=== PATIENT | female | born 1935 | race Caucasian/White ===

== ENCOUNTER 2016-09-04 19:12 | Emergency (ER) | payer BC ==
[~2016-09-04] VITALS: Ht 167.6 cm; Wt 53.0 kg
[~2016-09-04 19:12] MED LIST: ACET1TAB84 PO; AZAT50TA17 PO; CLON0.5T3 PO; MAGNESIUM PO; MISCCAP80 PO; PANT40TA PO; POTASSIUM PO; SERT25TA PO; VITA400C28 PO
[2016-09-04 19:29] VITALS: TEMP 36.5; Ht 167.6 cm; Wt 53.0 kg
[2016-09-04] MEDS ORDERED: SODIUM CHLORIDE 0.9% 500ML 500 ML IV STA (20:38)
[2016-09-04] MEDS ORDERED: ONDANSETRON INJ 2 MG/ML 2 ML VIAL IV STA (20:38)
[2016-09-04 21:09] LABS: BASO % 0.2 %; BASO ABS # 0.02 K/uL (0-0.2); COMPLETE YES; EOS % 0.7 %; IG% 0.3 %; LYMPH % 16.7 %; LYMPH ABS # 1.66 K/uL (1.2-3.4); MEAN CELL VOLUME 92.1 fL (80-100); MEAN CORPUSCULAR HGB CONC 34.7 g/dl (32-36); MEAN PLATELET VOLUME 9.6 fL (7.4-10.4); MONO % 9.9 %; NEUT % 72.2 %; PLATELET COUNT 254 K/uL (130-400); RED BLOOD COUNT 3.91 M/uL (4.2-5.4); WHITE BLOOD COUNT 9.96 K/uL (4.8-10.8)
[2016-09-04 21:29] LABS: BUN/CREATININE RATIO 15.3 (10-20); CREATININE 0.75 mg/dl (0.60-1.20); POTASSIUM 3.3 mmol/L (3.5-5.1)
--- NOTE | 2016-09-04 21:36 | DIAGNOSTIC IMAGING REPORT ---
CT OF THE ABDOMEN AND PELVIS WITHOUT CONTRAST, STONE PROTOCOL CLINICAL HISTORY: Nausea, vomiting and diarrhea. Evaluate for acute diverticulitis. COMPARISON STUDY: CT of the abdomen and pelvis August 23, [address] of the abdomen August 25, 2015. TECHNIQUE: Helical axial images of the abdomen and pelvis were obtained without IV or oral contrast according to renal stone protocol. FINDINGS: Evaluation of the abdomen and pelvis is suboptimal given the lack of IV and oral contrast. Moderate dilatation of the common bile duct is unchanged since prior exams and likely due to cholecystectomy. Unenhanced images of the spleen, adrenal glands, kidneys and pancreas are unremarkable. There is no evidence for a bowel obstruction. There are prominent loops of fluid-filled small bowel without discrete transition point. Images of the pelvis are degraded by streak artifact from hip arthroplasties. This extensive sigmoid diverticulosis. There is mild infiltration adjacent to the mid sigmoid colon. This could reflect mild diverticulitis. There is no free air or abscess. No suspicious skeletal lesions are identified. IMPRESSION: 1. Extensive sigmoid diverticulosis with mild infiltration adjacent to the mid to distal sigmoid colon. This suggests mild acute diverticulitis. No free air or abscess. 2. Prominent loops of fluid-filled small bowel without transition point. No convincing evidence for a bowel obstruction. 3. Stable biliary ductal dilatation which is likely due to prior cholecystectomy. Electronically signed by: Khai Pichardo M.D. 09/04/2016 9:34 PM Dictated Date/Time: 09/04/2016 9:25 PM
[2016-09-04 21:37] LABS: URINE APPEARANCE CLEAR (CLEAR); URINE BILIRUBIN NEG (NEG); URINE COLOR DK YELLOW; URINE NITRITE NEG (NEG); URINE SPECIFIC GRAVITY 1.022 (1.000-1.030); UROBILINOGEN POS (NEG)
[2016-09-04 21:38] LABS: MANUAL MICROSCOPIC REQUIRED? NO; REVIEW REQ? NO
[2016-09-04] MEDS ORDERED: METRONIDAZOLE 250 MG TAB PO STA (22:38)
[2016-09-04] MEDS ORDERED: CIPROFLOXACIN 500 MG TAB PO STA (22:38)
[2016-09-04] MEDS ORDERED: ONDANSETRON HOME PACK 4MG OD TAB PO ONE (22:45)
[2016-09-04] MEDS ORDERED: ONDA4TAB10 SL (22:51)
[2016-09-04] MEDS ORDERED: METR-163 PO (22:51)
[2016-09-04] MEDS ORDERED: CIPR-255 PO (22:51)
[2016-09-04 23:31] VITALS: BP 117/67; PULSE 67; O2SAT 95
--- NOTE | 2016-09-04 23:50 | EMERGENCY ROOM VISIT NOTE ---
History Report prepared by [place]: Ani Espinal Under the Supervision of: Dr. Rakan Telles M.D. First contact with patient: 19:59 Chief Complaint: NAUSEA Stated Complaint: NAUSEA,DIARRHEA,VOMITING,SOB Nursing Triage Summary: Pt complains of vomiting, diarrhea, abdominal pain and SOB. It started last Thursday. History of Present Illness The patient is an 81 year old female who presents to the Emergency Room with complaints of persistent nausea, vomiting and diarrhea for the past 6 days. She has been unable to keep any food or drink down. She denies any melena or hematochezia. Pepto-Bismol has provided no relief. She also complains of abdominal pain, rating her discomfort as an 8/10. The patient denies any recent sick contacts. The last time she was on antibiotics was in June 2016, when she was treated with a 28 day course of Doxycycline. She thinks she may have been running a fever. 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 A total of 10 systems reviewed and were otherwise negative. Past Medical & Surgical Medical Problems: (1) Acute urinary tract infection (2) Anxiety (3) Deep venous thrombosis (4) Depression (5) Diverticulosis (6) Dyslipidemia (7) GERD (gastroesophageal reflux disease) (8) h/o Schatski's ring (9) H/O urticaria (10) H/O: CVA (cerebrovascular accident) (11) Hiatal hernia (12) History of peptic ulcer disease (13) Paroxysmal atrial fibrillation Surgical Problems: (1) H/O blepharoplasty (2) H/o cervical laminectomy (3) H/O elbow replacement (4) H/O esophagogastroduodenoscopy (5) H/O esophagogastroduodenoscopy (6) H/o excision radial head (7) H/O hernia repair (8) H/o paravaginal defect repair (9) H/o sacral nerve stimulator implant (10) H/o vesicourethropexy (11) H/O: hysterectomy (12) Hx of cholecystectomy (13) S/P appendectomy (14) S/P cataract surgery (15) S/P hip replacement Family History Omitted secondary to age Social History Smoking Status: Former Smoker Alcohol Use: none Drug Use: none Marital Status: Housing Status: lives with family Occupation Status: employed Current/Historical Medications Scheduled Azathioprine (Imuran), 50 MG PO HS Ciprofloxacin Hcl (Cipro), 500 MG PO BID Metronidazole (Flagyl), 500 MG PO TID Ondasetron Odt (Zofran Odt), 4 MG SL Q6H Pantoprazole (Protonix), 40 MG PO QAM Probiotic Product (Probiotic), 1 CAP PO QAM Sertraline (Zoloft), 1 TAB PO DAILY Vitamin E (Alph-E), 1 CAP PO QAM [Magnesium], 300 MG PO BID [Potassium], 99 MG PO BID Scheduled PRN Acetaminophen (Tylenol Arthritis Ext Rel), 2 TAB PO Q8H PRN for Pain Clonazepam (Klonopin), 0.5 MG PO HS PRN for Sleep Allergies Coded Allergies: Iodinated Contrast Media (Verified Allergy, Intermediate, CONTRAST MEDIA- RASH,HIVES, 09/04/16) Oxycodone (Verified Allergy, Intermediate, PERCOCET-SWELLING OF ARMS, SHOULDERS, 09/04/16) SWELLING OF ARMS/SHOULDERS Corticosteroids (Verified Allergy, Unknown, STERIOD INJECTIONS - FLUSHING AND BLOTCHING REDNESS, 09/04/16) Mepivacaine (Verified Allergy, Unknown, 09/04/16) Morphine (Verified Allergy, Unknown, RASH, 09/04/16) Tetracyclines (Verified Allergy, Unknown, 09/04/16) Codeine (Verified Adverse Reaction, Mild, GI UPSET, 09/04/16) Fenoprofen (Verified Adverse Reaction, Unknown, NALFON-HEPATITIS, CAN TAKE MOTRIN, 09/04/16) Physical Exam Vital Signs Date Time Temp Pulse Resp B/P Pulse Ox O2 Delivery O2 Flow Rate FiO2 09/04/16 23:31 67 16 117/67 95 Room Air 09/04/16 22:35 64 18 117/66 95 Room Air 09/04/16 21:08 66 18 127/84 97 Room Air 09/04/16 19:29 36.5 70 20 119/66 97 Room Air Physical Exam Constitutional: Vital signs reviewed. Eyes: Pupils are equal round reactive to light. Conjunctiva are noninjected. ENT: Pharynx is clear without erythema or exudate. Mucous membranes are moist. Neck supple without meningeal signs. Respiratory: Clear to auscultation bilaterally. Breath sounds are equal bilaterally. Cardiovascular: Regular rate and rhythm. No rubs or gallops. GI: Soft, nondistended. LLQ tenderness, no guarding. Bowel sounds are present. Musculoskeletal: No peripheral edema. Integumentary: No cyanosis. Neurological: The patient is awake and alert. No focal deficits. Psychiatric: Normal affect. Medical Decision & Procedures ER Provider Diagnostic Interpretation: This CT scan was reviewed and interpreted by the radiologist and reviewed by myself. CT OF THE ABDOMEN AND PELVIS WITHOUT CONTRAST, STONE PROTOCOL CLINICAL HISTORY: Nausea, vomiting and diarrhea. Evaluate for acute diverticulitis. COMPARISON STUDY: CT of the abdomen and pelvis August 23, [address] of the abdomen August 25, 2015. TECHNIQUE: Helical axial images of the abdomen and pelvis were obtained without IV or oral contrast according to renal stone protocol. FINDINGS: Evaluation of the abdomen and pelvis is suboptimal given the lack of IV and oral contrast. Moderate dilatation of the common bile duct is unchanged since prior exams and likely due to cholecystectomy. Unenhanced images of the spleen, adrenal glands, kidneys and pancreas are unremarkable. There is no evidence for a bowel obstruction. There are prominent loops of fluid-filled small bowel without discrete transition point. Images of the pelvis are degraded by streak artifact from hip arthroplasties. This extensive sigmoid diverticulosis. There is mild infiltration adjacent to the mid sigmoid colon. This could reflect mild diverticulitis. There is no free air or abscess. No suspicious skeletal lesions are identified. IMPRESSION: 1. Extensive sigmoid diverticulosis with mild infiltration adjacent to the mid to distal sigmoid colon. This suggests mild acute diverticulitis. No free air or abscess. 2. Prominent loops of fluid-filled small bowel without transition point. No convincing evidence for a bowel obstruction. 3. Stable biliary ductal dilatation which is likely due to prior cholecystectomy. Electronically signed by: Khai Pichardo M.D. 09/04/2016 9:34 PM Laboratory Results 09/04/16 20:55 Red Blood Count 3.91, Mean Corpuscular Volume 92.1, Mean Corpuscular Hemoglobin 32.0, Mean Corpuscular Hemoglobin Concent 34.7, Mean Platelet Volume 9.6, Neutrophils (%) (Auto) 72.2, Lymphocytes (%) (Auto) 16.7, Monocytes (%) (Auto) 9.9, Eosinophils (%) (Auto) 0.7, Basophils (%) (Auto) 0.2, Neutrophils # (Auto) 7.19, Lymphocytes # (Auto) 1.66, Monocytes # (Auto) 0.99, Eosinophils # (Auto) 0.07, Basophils # (Auto) 0.02 09/04/16 20:55 Test 09/04/16 20:55 09/04/16 21:10 White Blood Count 9.96 K/uL (4.8-10.8) Red Blood Count 3.91 M/uL (4.2-5.4) Hemoglobin 12.5 g/dL (12.0-16.0) Hematocrit 36.0 % (37-47) Mean Corpuscular Volume 92.1 fL (80-100) Mean Corpuscular Hemoglobin 32.0 pg (25-34) Mean Corpuscular Hemoglobin Concent 34.7 g/dl (32-36) Platelet Count 254 K/uL (130-400) Mean Platelet Volume 9.6 fL (7.4-10.4) Neutrophils (%) (Auto) 72.2 % Lymphocytes (%) (Auto) 16.7 % Monocytes (%) (Auto) 9.9 % Eosinophils (%) (Auto) 0.7 % Basophils (%) (Auto) 0.2 % Neutrophils # (Auto) 7.19 K/uL (1.4-6.5) Lymphocytes # (Auto) 1.66 K/uL (1.2-3.4) Monocytes # (Auto) 0.99 K/uL (0.11-0.59) Eosinophils # (Auto) 0.07 K/uL (0-0.5) Basophils # (Auto) 0.02 K/uL (0-0.2) RDW Standard Deviation 44.3 fL (36.4-46.3) RDW Coefficient of Variation 13.2 % (11.5-14.5) Immature Granulocyte % (Auto) 0.3 % Immature Granulocyte # (Auto) 0.03 K/uL (0.00-0.02) Anion Gap 11.0 mmol/L (3-11) Est Creatinine Clear Calc Drug Dose 49.2 ml/min Estimated GFR () 86.6 Estimated GFR (Non- 74.8 BUN/Creatinine Ratio 15.3 (10-20) Calcium Level 9.0 mg/dl (8.5-10.1) Total Bilirubin 0.3 mg/dl (0.2-1) Direct Bilirubin 0.1 mg/dl (0-0.2) Aspartate Amino Transf (AST/SGOT) 25 U/L (15-37) Alanine Aminotransferase (ALT/SGPT) 20 U/L (12-78) Alkaline Phosphatase 97 U/L (45-117) Total Protein 7.2 gm/dl (6.4-8.2) Albumin 3.4 gm/dl (3.4-5.0) Lipase 194 U/L (73-393) Urine Color DK YELLOW Urine Appearance CLEAR (CLEAR) Urine pH 7.0 (4.5-7.5) Urine Specific [place] 1.022 (1.000-1.030) Urine Protein NEG (NEG) Urine Glucose (UA) NEG (NEG) Urine Ketones TRACE (NEG) Urine Occult Blood 1+ (NEG) Urine Nitrite NEG (NEG) Urine Bilirubin NEG (NEG) Urine Urobilinogen POS (NEG) Urine Leukocyte Esterase SMALL (NEG) Urine WBC (Auto) 5-10 /hpf (0-5) Urine RBC (Auto) >30 /hpf (0-4) Urine Hyaline Casts (Auto) 1-5 /lpf (0-5) Urine Epithelial Cells (Auto) 10-20 /lpf (0-5) Urine Bacteria (Auto) NEG (NEG) Laboratory results as reviewed by me. Medications Administered Medications (Trade) Dose Ordered Sig/[place] Route Start Time Stop Time Status Last Admin Dose Admin Ondansetron HCl 4 mg 4 mg NOW STAT IV 09/04/16 20:38 09/04/16 20:39 DC 09/04/16 21:06 4 MG Sodium Chloride (Nss 500ml) 500 ml @ 999 mls/hr Q31M STAT IV 09/04/16 20:38 09/04/16 21:08 DC 09/04/16 21:07 999 MLS/HR Ciprofloxacin (Cipro Tab) 500 mg NOW STAT PO 09/04/16 22:38 09/04/16 22:39 DC 09/04/16 23:36 500 MG Metronidazole (Flagyl Tab) 500 mg NOW STAT PO 09/04/16 22:38 09/04/16 22:39 DC 09/04/16 23:36 500 MG Ondansetron HCl (ZOFRAN ODT 4MG Home Pack) 1 homepack UD ONCE PO 09/04/16 22:45 09/04/16 22:46 DC 09/04/16 23:36 1 HOMEPACK ED Course 2032: The patient was evaluated in room B7. A complete history and physical exam was performed. 2037: NSS 500 ml @ 999 mls/hr IV, Zofran 4 mg IV. 2219: I reevaluated the patient. I discussed her test results. She is feeling better and does not want to stay in the hospital. I am waiting on her C-Diff results. 2237: Flagyl 500 mg PO, Cipro 500 mg PO. 2244: I reevaluated the patient. She is drinking water. I discussed her test results discharge instructions and she verbalized complete understanding and agreement. 5: Zofran 1 home pack PO. Medical Decision This is an 81-year-old female presents with vomiting, diarrhea and abdominal pain. Differential diagnosis includes diverticulitis, perforation, abscess, gastroenteritis, dehydration. I did perform a limited focused review of portions of the patient's old chart on the electronic medical record. The patient had an EGD in June 2016, which showed Schatzki's ring, but an otherwise normal stomach and duodenum. I did evaluate the patient as noted above. IV access was established. I did treat patient with Zofran and normal saline IV. I did order and personally review the patient's urinalysis as this appears to be contaminated. She denies urinary symptoms. As described above. I did order and review the patient's blood work as noted in the electronic medical record. I did order a CT of the abdomen and pelvis. I did review the images myself as well as the radiology report as described above. She does appear to have diverticulitis and enteritis. I did order a C. difficile test which was negative. I did reevaluate the patient. She is feeling better. She does not wish to be hospitalized. She is able to drink fluids. I did discuss the test results with the patient and her family. She was treated with Cipro and Flagyl and discharged home with a prescription for Cipro, Flagyl and Zofran. She was advised follow closely with her doctor and given return instructions as outlined below. Impression Primary Impression: Acute diverticulitis Additional Impressions: Dehydration Enteritis Scribe Attestation The scribe's documentation has been prepared under my direct and personally reviewed by me in its entirety. I confirm that the note above accurately reflects all work, treatment, procedures, and medical decision making performed by me. Departure Information Dispostion Home / Self-Care Prescriptions Ondasetron Odt (ZOFRAN ODT) 4 Mg Tab 4 MG SL Q6H for Nausea, #10 TAB Prov: Rakan Telles M.D. 09/04/16 Metronidazole (Flagyl) 500 Mg Tab 500 MG PO TID for 10 Days, #30 TAB Prov: Rakan Telles M.D. 09/04/16 Ciprofloxacin Hcl (CIPRO) 500 Mg Tab 500 MG PO BID, #19 TAB Prov: Rakan Telles M.D. 09/04/16 Referrals Richa Mejia M.D. (PCP) Patient Instructions Diverticulitis Dc, My [facility] Additional Instructions You have been examined and treated today on an emergency basis only. This is not a substitute for, or an effort to provide, complete comprehensive medical care. It is impossible to recognize and treat all injuries or illnesses in a single emergency department visit. It is therefore important that you follow up closely with your physician. Call as soon as possible for an appointment. Return for worsening symptoms or if you develop fever, rectal bleeding or any other concerning symptoms. Problem Qualifiers
[2016-09-26] MEDS ORDERED: SACC250C3 PO (11:05)
[2016-09-26] MEDS ORDERED: AMOX875T PO (11:05)
[2016-10-31] MEDS ORDERED: MELATAB2 PO (14:59)
[2016-10-31] MEDS ORDERED: PROB1CAP27 PO (14:59)
[2016-12-26] MEDS ORDERED: SERT50TA PO (10:42)
[2017-01-21] MEDS ORDERED: TRAM-10 PO (08:55)
[2017-05-05] MEDS ORDERED: MDRDP21 PO (15:35)
[2017-05-05] MEDS ORDERED: HYDR-4383 PO (15:35)
== END 2016-09-04 23:40 | disposition home or self-care (01) ==
LOC: C.EDB 19:14
DX: K57.92 Diverticulitis of intestine, part unspecified, without perforation or abscess without bleeding (principal); E86.0 Dehydration; K52.9 Noninfective gastroenteritis and colitis, unspecified; R11.2 Nausea with vomiting, unspecified; R50.9 Fever, unspecified; Z87.891 Personal history of nicotine dependence

== ENCOUNTER 2016-09-21 10:52 | Inpatient (IN) | payer BC, OTHER ==
[~2016-09-21] VITALS: Ht 167.6 cm; Wt 53.0 kg
[~2016-09-21 10:52] MED LIST changes: +CIPR-255 PO; +ONDA4TAB10 SL
[2016-09-21] MEDS ORDERED: SODIUM CHLORIDE 0.9% 1000ML 1,000 ML IV STA (11:54)
[2016-09-21] MEDS ORDERED: SODIUM CHLORIDE 0.9% 1000ML 500 ML IV STA (11:54)
[2016-09-21] MEDS ORDERED: ONDANSETRON INJ 2 MG/ML 2 ML VIAL IV STA (11:54)
[2016-09-21] MEDS ORDERED: SERT-234 PO (12:02)
[2016-09-21 12:35] LABS: BASO % 0.2 %; BASO ABS # 0.02 K/uL (0-0.2); COMPLETE YES; EOS % 2.2 %; HEMATOCRIT 37.8 % (37-47); IG% 0.2 %; LYMPH ABS # 1.15 K/uL (1.2-3.4); MEAN CELL VOLUME 96.2 fL (80-100); MEAN CORPUSCULAR HEMOGLOBIN 32.6 pg (25-34); MEAN CORPUSCULAR HGB CONC 33.9 g/dl (32-36); MEAN PLATELET VOLUME 9.8 fL (7.4-10.4); MONO % 12.6 %; NEUT % 70.8 %; PLATELET COUNT 287 K/uL (130-400); RED BLOOD COUNT 3.93 M/uL (4.2-5.4); WHITE BLOOD COUNT 8.19 K/uL (4.8-10.8)
[2016-09-21 12:56] LABS: BUN/CREATININE RATIO 12.8 (10-20); CALCIUM 8.7 mg/dl (8.5-10.1); CREATININE 0.74 mg/dl (0.60-1.20); POTASSIUM 3.3 mmol/L (3.5-5.1)
[2016-09-21 12:59] LABS: ALB/GLOB RATIO 0.8 (0.9-2)
--- NOTE | 2016-09-21 14:24 | EMERGENCY ROOM VISIT NOTE ---
History Report prepared by [place]: Dejuan Romero Under the Supervision of: Dr. Trenton Zayas M.D. First contact with patient: 11:52 Chief Complaint: DIARRHEA Stated Complaint: DIARRHEA, PAIN IN [place] History of Present Illness The patient is an 81 year old female with a history of diverticulosis who presents to the Emergency Room with complaints of persistent diarrhea for the past two weeks. The stools are very loose and without blood. The patient was experiencing vomiting & diarrhea two weeks ago. She was seen in the ED and had a CT abdomen & pelvis. The patient was diagnosed with mild diverticulitis. The patient is no longer vomiting, but continues to experience diarrhea. She also complains of subjective fevers and intermittent lower abdominal pain. The patient was started on Cipro and Flagyl, which she finished. The patient was seen by urgent care yesterday. The patient tries to keep up with her fluids but still feels like her mouth is dry. She also feels like she is urinating infrequently. The patient has never been diagnosed with C. Diff. The patient is s/p cholecystectomy and appendectomy. She has never had a colectomy. The patient takes Imuran for hepatitis. Source of History: patient Onset: two weeks ago Position: other (GI) Quality: other (diarrhea) Timing: other (persistent) Associated Symptoms: + abdominal pain, + fevers, No hematochezia, No vomiting Review of Systems See HPI for pertinent positives & negatives. A total of 10 systems reviewed and were otherwise negative. Past Medical & Surgical Medical Problems: (1) Anxiety (2) Deep venous thrombosis (3) Depression (4) Diverticulosis (5) Dyslipidemia (6) GERD (gastroesophageal reflux disease) (7) h/o Schatski's ring (8) H/O urticaria (9) H/O: CVA (cerebrovascular accident) (10) Hiatal hernia (11) History of peptic ulcer disease (12) Paroxysmal atrial fibrillation Surgical Problems: (1) H/O blepharoplasty (2) H/o cervical laminectomy (3) H/O elbow replacement (4) H/O esophagogastroduodenoscopy (5) H/O esophagogastroduodenoscopy (6) H/o excision radial head (7) H/O hernia repair (8) H/o paravaginal defect repair (9) H/o sacral nerve stimulator implant (10) H/o vesicourethropexy (11) H/O: hysterectomy (12) Hx of cholecystectomy (13) S/P appendectomy (14) S/P cataract surgery (15) S/P hip replacement Family History Omitted secondary to age Social History Smoking Status: Former Smoker Alcohol Use: none Drug Use: none Marital Status: Housing Status: lives with family Occupation Status: employed Current/Historical Medications Scheduled Azathioprine (Imuran), 50 MG PO HS Magnesium Oxide (Mg Supplement (Magnesium), 400 MG PO DAILY Ondasetron Odt (Zofran Odt), 4 MG SL Q6H Pantoprazole (Protonix), 40 MG PO QAM Potassium (Potassium), 99 MG PO DAILY Sertraline (Zoloft), 50 MG PO DAILY Vitamin E (Alph-E), 1 CAP PO QAM Scheduled PRN Acetaminophen (Tylenol Arthritis Ext Rel), 2 TAB PO Q8H PRN for Pain Clonazepam (Klonopin), 0.5 MG PO HS PRN for Sleep Allergies Coded Allergies: Iodinated Contrast Media (Verified Allergy, Intermediate, CONTRAST MEDIA- RASH,HIVES, 09/21/16) Oxycodone (Verified Allergy, Intermediate, PERCOCET-SWELLING OF ARMS, SHOULDERS, 09/21/16) SWELLING OF ARMS/SHOULDERS Corticosteroids (Verified Allergy, Unknown, STERIOD INJECTIONS - FLUSHING AND BLOTCHING REDNESS, 09/21/16) Mepivacaine (Verified Allergy, Unknown, 09/21/16) Morphine (Verified Allergy, Unknown, RASH, 09/21/16) Tetracyclines (Verified Allergy, Unknown, 09/21/16) Codeine (Verified Adverse Reaction, Mild, GI UPSET, 09/21/16) Fenoprofen (Verified Adverse Reaction, Unknown, NALFON-HEPATITIS, CAN TAKE MOTRIN, 09/21/16) Physical Exam Vital Signs Date Time Temp Pulse Resp B/P Pulse Ox O2 Delivery O2 Flow Rate FiO2 09/21/16 16:40 97 Room Air 09/21/16 16:20 66 20 127/75 97 Room Air 09/21/16 15:38 64 18 140/65 94 Room Air 09/21/16 13:46 66 16 124/67 97 Room Air 09/21/16 11:05 37.0 85 18 107/67 96 Room Air Physical Exam GENERAL: Patient is in no acute distress. HEENT: No acute trauma, normocephalic atraumatic, mucous membranes dry, no nasal congestion, no scleral icterus. NECK: No stridor, no adenopathy, no meningismus, trachea is midline. LUNGS: Clear to auscultation bilaterally, no wheeze, no rhonchi, breath sounds equal. HEART: 2/6 systolic murmur, with a regular rate and rhythm. ABDOMEN: Soft, tender to the left mid abdomen and right lower quadrant, bowel sounds positive, no hernias, no peritonitis. EXTREMITIES: No cyanosis or edema, full range of motion of all the joints without pain or difficulty, no signs for acute trauma. NEUROLOGIC: Oriented x 3, no acute motor or sensory deficits, no focal weakness. SKIN: No rash, no jaundice, no diaphoresis. Medical Decision & Procedures ER Provider Diagnostic Interpretation: CT results as stated below per my review and radiologist interpretation: ABDOMEN AND PELVIS CT WITH ORAL CONTRAST CT DOSE: 527.95 mGy.cm HISTORY: Pain. Pelvic pain. ABD PAIN, POSSIBLE DIVERTICULITIS TECHNIQUE: Multiaxial CT images of the abdomen and pelvis were performed following the use of oral contrast. COMPARISON STUDY: 09/04/2016 FINDINGS: Lung bases are clear. Small hiatal hernia. Liver spleen and pancreas are unremarkable in overall general morphology. Kidneys are negative for hydronephrosis. There are no renal calcifications. There is a diverticulum of the third portion of the duodenal sweep. This is unchanged. Abdominal bowel pattern is considered nonobstructive. Moderate osteophytic change of the abdominal aorta. Moderate ectasia. Findings of mild wall edema of the sigmoid and composed of the descending colon despite metallic artifact from the patient's bilateral hip replacements. No abscess or collection. IMPRESSION: Findings suggesting mild sigmoid and to lesser extent descending colonic diverticulosis/colitis. Moderate generalized wall thickening. No evidence for abscess collection or obstruction Electronically signed by: Sridhar Kirk M.D. 09/21/2016 2:59 PM Dictated Date/Time: 09/21/2016 2:54 PM Laboratory Results 09/21/16 12:27 Red Blood Count 3.93, Mean Corpuscular Volume 96.2, Mean Corpuscular Hemoglobin 32.6, Mean Corpuscular Hemoglobin Concent 33.9, Mean Platelet Volume 9.8, Neutrophils (%) (Auto) 70.8, Lymphocytes (%) (Auto) 14.0, Monocytes (%) (Auto) 12.6, Eosinophils (%) (Auto) 2.2, Basophils (%) (Auto) 0.2, Neutrophils # (Auto ) 5.79, Lymphocytes # (Auto) 1.15, Monocytes # (Auto) 1.03, Eosinophils # (Auto ) 0.18, Basophils # (Auto) 0.02 09/21/16 12:27 Test 09/21/16 12:27 09/21/16 12:37 White Blood Count 8.19 K/uL (4.8-10.8) Red Blood Count 3.93 M/uL (4.2-5.4) Hemoglobin 12.8 g/dL (12.0-16.0) Hematocrit 37.8 % (37-47) Mean Corpuscular Volume 96.2 fL (80-100) Mean Corpuscular Hemoglobin 32.6 pg (25-34) Mean Corpuscular Hemoglobin Concent 33.9 g/dl (32-36) Platelet Count 287 K/uL (130-400) Mean Platelet Volume 9.8 fL (7.4-10.4) Neutrophils (%) (Auto) 70.8 % Lymphocytes (%) (Auto) 14.0 % Monocytes (%) (Auto) 12.6 % Eosinophils (%) (Auto) 2.2 % Basophils (%) (Auto) 0.2 % Neutrophils # (Auto) 5.79 K/uL (1.4-6.5) Lymphocytes # (Auto) 1.15 K/uL (1.2-3.4) Monocytes # (Auto) 1.03 K/uL (0.11-0.59) Eosinophils # (Auto) 0.18 K/uL (0-0.5) Basophils # (Auto) 0.02 K/uL (0-0.2) RDW Standard Deviation 48.3 fL (36.4-46.3) RDW Coefficient of Variation 13.7 % (11.5-14.5) Immature Granulocyte % (Auto) 0.2 % Immature Granulocyte # (Auto) 0.02 K/uL (0.00-0.02) Anion Gap 8.0 mmol/L (3-11) Est Creatinine Clear Calc Drug Dose 49.9 ml/min Estimated GFR () 88.1 Estimated GFR (Non- 76.0 BUN/Creatinine Ratio 12.8 (10-20) Calcium Level 8.7 mg/dl (8.5-10.1) Magnesium Level 2.3 mg/dl (1.8-2.4) Total Bilirubin 0.4 mg/dl (0.2-1) Aspartate Amino Transf (AST/SGOT) 16 U/L (15-37) Alanine Aminotransferase (ALT/SGPT) 11 U/L (12-78) Alkaline Phosphatase 90 U/L (45-117) Total Protein 7.4 gm/dl (6.4-8.2) Albumin 3.3 gm/dl (3.4-5.0) Globulin 4.1 gm/dl (2.5-4.0) Albumin/Globulin Ratio 0.8 (0.9-2) Prothrombin Time 11.4 SECONDS (9.0-12.0) Prothromb Time International Ratio 1.1 (0.9-1.1) Activated Partial Thromboplast Time 26.1 SECONDS (21.0-31.0) Partial Thromboplastin Ratio 1.0 Laboratory results reviewed by me. Medications Administered Medications (Trade) Dose Ordered Sig/Kelsea Route Start Time Stop Time Status Last Admin Dose Admin Sodium Chloride (Nss 1000ml) 500 ml @ 999 mls/hr Q31M STAT IV 09/21/16 11:54 09/21/16 12:24 DC 09/21/16 11:54 999 MLS/HR Ondansetron HCl 4 mg 4 mg NOW STAT IV 09/21/16 11:54 09/21/16 12:02 DC 09/21/16 12:28 4 MG Sodium Chloride 1,000 ml @ 200 mls/hr Q5H STAT IV 09/21/16 11:54 09/21/16 16:53 DC 09/21/16 11:54 200 MLS/HR Promethazine HCl 6.25 mg/Sodium Chloride 50.25 ml @ 204 mls/hr NOW STAT IV 09/21/16 14:53 09/21/16 15:07 DC 09/21/16 16:19 204 MLS/HR Ampicillin Sodium/ Sulbactam Sodium/ Sodium Chloride (Unasyn Inj/Nss 100ml) 108 ml @ 200 mls/hr ONE ONCE IV 09/21/16 15:30 2/5/17 16:02 DC 09/21/16 16:20 200 MLS/HR ED Course 1154: The patient was evaluated in room C10. A complete history and physical exam was performed. 1223: Checked on the patient. 1323: Updated the patient. Medicine will be paged. 1453: Promethazine HCl 6.25 mg / NSS 50.25 ml @ 204 mls/hr. 1530: Ampicillin Sodium / Sulbactam Sodium 3000 mg / NSS 108 ml @ 200 mls/hr. 1535: [facility] The patient will be evaluated. Medical Decision Differential diagnosis includes C. Diff. colitis, colitis, diverticulitis, dehydration, electrolyte imbalance, UTI, renal failure. There is no leukocytosis or concerning anemia. No significant electrolyte abnormality, kidney failure or hepatitis. Abdominal and pelvis CT shows diverticulitis, there was no evidence for abscess, no bowel perforation. The patient presents with diarrhea, weakness and abdominal cramping. She just finished a course of Cipro and Flagyl for diverticulitis and she appears to have failed outpatient treatment. I did have a stool culture sent, these results are pending. The C. difficile testing was negative. The patient was given IV saline, IV Zofran and IV Phenergan. She received IV Unasyn for antibiotic coverage. The patient requires admission/observation. She requires IV antibiotic therapy. I spoke to the patient and case management. The on-call hospitalist was consulted. Consults Time Called: 1529 Consulting Physician: Cheryl Starr PA-C, [facility] Returned Call: [phone]: Spoke with Cheryl Starr PA-C, [facility]. The patient will be evaluated. Impression Primary Impression: Diverticulitis Additional Impressions: Dehydration Failure of outpatient treatment Scribe Attestation The scribe's documentation has been prepared under my direction and personally reviewed by me in its entirety. I confirm that the note above accurately reflects all work, treatment, procedures, and medical decision making performed by me. Departure Information Dispostion Being Evaluated By Hospitalist Referrals Richa Mejia M.D. (PCP) Patient Instructions My [facility] Problem Qualifiers
[2016-09-21] MEDS ORDERED: PROMETHAZINE HCL INJ 6.25 MG in SODIUM CHLORIDE 0.9% 50ML 50 ML IV STA (14:53)
--- NOTE | 2016-09-21 15:01 | DIAGNOSTIC IMAGING REPORT ---
ABDOMEN AND PELVIS CT WITH ORAL CONTRAST CT DOSE: 527.95 mGy.cm HISTORY: Pain. Pelvic pain. ABD PAIN, POSSIBLE DIVERTICULITIS TECHNIQUE: Multiaxial CT images of the abdomen and pelvis were performed following the use of oral contrast. COMPARISON STUDY: 09/04/2016 FINDINGS: Lung bases are clear. Small hiatal hernia. Liver spleen and pancreas are unremarkable in overall general morphology. Kidneys are negative for hydronephrosis. There are no renal calcifications. There is a diverticulum of the third portion of the duodenal sweep. This is unchanged. Abdominal bowel pattern is considered nonobstructive. Moderate osteophytic change of the abdominal aorta. Moderate ectasia. Findings of mild wall edema of the sigmoid and composed of the descending colon despite metallic artifact from the patient's bilateral hip replacements. No abscess or collection. IMPRESSION: Findings suggesting mild sigmoid and to lesser extent descending colonic diverticulosis/colitis. Moderate generalized wall thickening. No evidence for abscess collection or obstruction Electronically signed by: Sridhar Kirk M.D. 09/21/2016 2:59 PM Dictated Date/Time: 09/21/2016 2:54 PM
[2016-09-21] MEDS ORDERED: AMPICILLIN/SULBACTAM SOD INJ 3,000 MG in SODIUM CHLORIDE 0.9% 100ML 100 ML IV ONE (15:30)
[2016-09-21] MEDS ORDERED: ONDANSETRON INJ 2 MG/ML 2 ML VIAL IV PRN (16:30)
[2016-09-21] MEDS ORDERED: SERT50TA PO (16:31)
[2016-09-21] MEDS ORDERED: MAGN1CAP2 PO (16:31)
[2016-09-21] MEDS ORDERED: POTA99TA PO (16:31)
[2016-09-21 16:40] VITALS: O2SAT 97; Ht 167.6 cm; Wt 53.0 kg
--- NOTE | 2016-09-21 16:47 | History and Physical ---
History & Physical Date & Time of Service: Sep 21, 2016 at 16:33 Chief Complaint: Diarrhea, Pain In Belly Primary Care Physician: Richa Mejia M.D. History of Present Illness Source: patient This is an 81 y/o female with PMHx of Autoimmune hepatitis, GERD, Dyslipidemia and other problems as outlined below who presents to the ED c/o diarrhea x 2 weeks. Pt reports that 2 weeks ago she developed diarrhea that is watery but non -bloody. She estimates that she has >10 episodes daily. Her sxs are assoc with mild abd crampy pain relieved with defecation, nausea, decreased urination and lightheadedness/dizziness. Pt was seen in the ED 2 weeks ago for her sxs. CT scan at that time revealed mild diverticulitis and patient was discharged home on 10-day course of Cipro/Flagyl. Pt completed the abx course on 09/14 however her sxs have not resolved. She continues to have copious amounts of diarrhea. Pt currently lives at home with daughter about 20 minutes away. When patient is feeling well she is very active (swims 3 days per week) and independent. Pt denies fever/chills, chest pain, SOB, vomiting, hematochezia, dysuria, LE edema or calf pain. In the ED, vitals are stable. Pt is afebrile with no leukocytosis. K+ 3.3. C.Diff is negative. Abd/pelvis CT + mild sigmoid and descending colon. No abscess. Pt will be admitted for further evaluation and treatment. Past Medical/Surgical History Medical Problems: (1) Anxiety Status: Chronic (2) Deep venous thrombosis Status: Chronic (3) Depression Status: Chronic (4) Diverticulosis Status: Chronic (5) Dyslipidemia Status: Chronic (6) GERD (gastroesophageal reflux disease) Status: Chronic (7) h/o Schatski's ring Status: Chronic (8) H/O urticaria Status: Chronic (9) H/O: CVA (cerebrovascular accident) Permanent Comment: 2011 per patient Status: Chronic (10) Hiatal hernia Status: Chronic (11) History of peptic ulcer disease Status: Chronic (12) Paroxysmal atrial fibrillation Status: Chronic Surgical Problems: (1) H/O blepharoplasty Status: Chronic (2) H/o cervical laminectomy Status: Chronic (3) H/O elbow replacement Status: Resolved (4) H/O esophagogastroduodenoscopy Status: Chronic (5) H/O esophagogastroduodenoscopy Permanent Comment: 08/06/15- Schatzki's ring, small hiatal hernia, gastritis Status: Chronic (6) H/o excision radial head Status: Chronic (7) H/O hernia repair Status: Chronic (8) H/o paravaginal defect repair Status: Chronic (9) H/o sacral nerve stimulator implant Status: Chronic (10) H/o vesicourethropexy Status: Chronic (11) H/O: hysterectomy Status: Resolved (12) Hx of cholecystectomy Status: Resolved (13) S/P appendectomy Status: Resolved (14) S/P cataract surgery Status: Chronic (15) S/P hip replacement Permanent Comment: bilateral Status: Chronic Family History Omitted secondary to age Social History Smoking Status: Former Smoker Alcohol Use: none Drug Use: none Marital Status: Housing status: lives alone Occupational Status: retired Immunizations History of Influenza Vaccine: No History of Tetanus Vaccine?: No History of Pneumococcal: No History of Hepatitis B Vaccine: No Multi-Drug Resistant Organisms History of MDRO: No Allergies Coded Allergies: Iodinated Contrast Media (Verified Allergy, Intermediate, CONTRAST MEDIA- RASH,HIVES, 09/21/16) Oxycodone (Verified Allergy, Intermediate, PERCOCET-SWELLING OF ARMS, SHOULDERS, 09/21/16) SWELLING OF ARMS/SHOULDERS Corticosteroids (Verified Allergy, Unknown, STERIOD INJECTIONS - FLUSHING AND BLOTCHING REDNESS, 09/21/16) Mepivacaine (Verified Allergy, Unknown, 09/21/16) Morphine (Verified Allergy, Unknown, RASH, 09/21/16) Tetracyclines (Verified Allergy, Unknown, 09/21/16) Codeine (Verified Adverse Reaction, Mild, GI UPSET, 09/21/16) Fenoprofen (Verified Adverse Reaction, Unknown, NALFON-HEPATITIS, CAN TAKE MOTRIN, 09/21/16) Home Medications Scheduled Azathioprine (Imuran), 50 MG PO HS Magnesium Oxide (Mg Supplement (Magnesium), 400 MG PO DAILY Ondasetron Odt (Zofran Odt), 4 MG SL Q6H Pantoprazole (Protonix), 40 MG PO QAM Potassium (Potassium), 99 MG PO DAILY Sertraline (Zoloft), 50 MG PO DAILY Vitamin E (Alph-E), 1 CAP PO QAM Scheduled PRN Acetaminophen (Tylenol Arthritis Ext Rel), 2 TAB PO Q8H PRN for Pain Clonazepam (Klonopin), 0.5 MG PO HS PRN for Sleep Review of Systems Constitutional: + fatigue, + weakness, No chills, No fever, No sweats Eyes: No worsening of vision Respiratory: No cough, No shortness of breath Cardiovascular: No chest pain, No claudication, No edema Abdomen: + diarrhea, + nausea, + pain, No GI bleeding, No constipation, No vomiting Musculoskeletal: No calf pain, No swelling Genitourinary - Female: No dysuria Neurologic: + weakness Psychiatric: No depression symptoms Endocrine: + fatigue Hematologic / Lymphatic: No abnormal bleeding/bruising Integumentary: No new/changing skin lesions Physical Exam Vital Signs Date Time Temp Pulse Resp B/P Pulse Ox O2 Delivery O2 Flow Rate FiO2 09/21/16 15:38 64 18 140/65 94 Room Air 09/21/16 13:46 66 16 124/67 97 Room Air 09/21/16 11:05 37.0 85 18 107/67 96 Room Air General Appearance: WD/WN, no apparent distress, + pertinent finding (Pt is laying in bed with daughter at bedside ) Head: normocephalic, atraumatic Eyes: normal inspection ENT: hearing grossly normal Neck: supple Respiratory/Chest: chest non-tender, lungs clear, normal breath sounds, no respiratory distress Cardiovascular: regular rate, rhythm, no edema, no murmur Abdomen/GI: soft, + tenderness (diffuse; worst in LLQ), + pertinent finding ( hyperactive bowel sounds) Back: normal inspection Extremities/Musculoskelatal: normal inspection, no calf tenderness, no pedal edema Neurologic/Psych: alert, normal mood/affect, oriented x 3 Skin: normal color, warm/dry Diagnostics Laboratory Results Results Past 24 Hours Test 09/21/16 12:27 09/21/16 12:37 Range/Units White Blood Count 8.19 4.8-10.8 K/uL Red Blood Count 3.93 4.2-5.4 M/uL Hemoglobin 12.8 12.0-16.0 g/dL Hematocrit 37.8 37-47 % Mean Corpuscular Volume 96.2 80-100 fL Mean Corpuscular Hemoglobin 32.6 25-34 pg Mean Corpuscular Hemoglobin Concent 33.9 32-36 g/dl Platelet Count 287 130-400 K/uL Mean Platelet Volume 9.8 7.4-10.4 fL Neutrophils (%) (Auto) 70.8 % Lymphocytes (%) (Auto) 14.0 % Monocytes (%) (Auto) 12.6 % Eosinophils (%) (Auto) 2.2 % Basophils (%) (Auto) 0.2 % Neutrophils # (Auto) 5.79 1.4-6.5 K/uL Lymphocytes # (Auto) 1.15 1.2-3.4 K/uL Monocytes # (Auto) 1.03 0.11-0.59 K/uL Eosinophils # (Auto) 0.18 0-0.5 K/uL Basophils # (Auto) 0.02 0-0.2 K/uL RDW Standard Deviation 48.3 36.4-46.3 fL RDW Coefficient of Variation 13.7 11.5-14.5 % Immature Granulocyte % (Auto) 0.2 % Immature Granulocyte # (Auto) 0.02 0.00-0.02 K/uL Sodium Level 142 136-145 mmol/L Potassium Level 3.3 3.5-5.1 mmol/L Chloride Level 105 98-107 mmol/L Carbon Dioxide Level 29 21-32 mmol/L Anion Gap 8.0 3-11 mmol/L Blood Urea Nitrogen 10 7-18 mg/dl Creatinine 0.74 0.60-1.20 mg/dl Est Creatinine Clear Calc Drug Dose 49.9 ml/min Estimated GFR () 88.1 Estimated GFR (Non- 76.0 BUN/Creatinine Ratio 12.8 10-20 Random Glucose 104 70-99 mg/dl Calcium Level 8.7 8.5-10.1 mg/dl Total Bilirubin 0.4 0.2-1 mg/dl Aspartate Amino Transf (AST/SGOT) 16 15-37 U/L Alanine Aminotransferase (ALT/SGPT) 11 12-78 U/L Alkaline Phosphatase 90 45-117 U/L Total Protein 7.4 6.4-8.2 gm/dl Albumin 3.3 3.4-5.0 gm/dl Globulin 4.1 2.5-4.0 gm/dl Albumin/Globulin Ratio 0.8 0.9-2 Microbiology Results 09/21/16 Shiga Toxin Test, Received Pending 09/21/16 Stool Culture, Received Pending 09/21/16 C.difficile Toxin B Gene (PCR) - Final, Complete No C. difficile toxin B gene detected Diagnostic Radiology CT ABD/PELVIS IMPRESSION: Findings suggesting mild sigmoid and to lesser extent descending colonic diverticulosis/colitis. Moderate generalized wall thickening. No evidence for abscess collection or obstruction Impression Assessment and Plan ACUTE DIVERTICULITIS pt presented with persistent diarrhea despite abx (Cipro/Flagyl) treatment for diverticulitis -admit to med/surg -pt is afebrile with no leukocytosis -CT abd/pelvis + diverticulitis of sigmoid and descending colon; no abscess -C.diff negative -start IVF and Unasyn -clear liquid diet -monitor HYPOKALEMIA -K+ 3.3; likely depleted from GI losses -replete K+ -check mag -continue to monitor with daily prp H/O CVA -no residual deficits -not on ASA or Plavix ANXIETY/DEPRESSION -stable -cont Zoloft and Klonopin AUTOIMMUNE HEPATITIS -normal LFTs -cont Imuran GERD -cont PPI DVT PROPHYLAXIS -subq Lovenox CODE STATUS DNR per discussion with patient upon admission DISPO -Pt seen in collaboration with Dr. Villalpando. Please see his addendum for further details. Thanks! Attending Note: Patient is an 81 yr old female with PMH of Autoimmune hepatitis, GERD, Dyslipidemia who was recently discharged from ED after being treated for mild diverticulitis with a 10 day course of cipro and flagyl presents with history of persistent non bloody diarrhea, nausea, intermittent dizziness and intermittent crampy abdominal pain which relieves with bowel movements. Also reports poor appetite. Physical Exam: Vitals signs as noted above General Appearance:Thin, fragile, no apparent distress Head: normocephalic, Atraumatic Eyes: normal inspection, EOMI, PERRLA, Anicteric Neck: supple, Trachea midline Respiratory/Chest: Normal breath sounds, CTA, No accessory muscle use Cardiovascular: S1, S2, No murmur Abdomen/GI:Soft, + tender in RLQ AND LLQ, Bowel sounds HYPERACTIVE, No guarding/ rigidity Extremities/Musculoskelatal:normal inspection, no edema Neurologic/Psych:AAOX3, grossly no focal neurological deficits Skin:normal color,warm Assessment and Plan: ACUTE DIVERTICULITIS/COLITIS Failed out patient antibiotic therapy with Cipro/Flagyl CT abd:Findings suggestive of diverticulosis and colitis of sigmoid and descending colon; no abscess, no signs of obstruction Stool is negative for C.diff Continue IVF and Unasyn clear liquid diet, will advance as tolerated Consult GI HYPOKALEMIA likely from GI losses Will replace and monitor check mag I personally reviewed the record. Patient is interviewed and examined at bedside. Patient's care is coordinated with Bello Ronquillo PA-C. Please refer to the documentation above for details of patient's presentation and for discussion of other issues. VTE Prophylaxis VTE Risk Assessment Done? Y/N: Yes Risk Level: Moderate
[2016-09-21 16:49] LABS: INR 1.1 (0.9-1.1); PROTHROMBIN TIME (PATIENT) 11.4 SECONDS (9.0-12.0)
[2016-09-21] MEDS ORDERED: POTASSIUM CHLORIDE 20 MEQ TABCR PO ONE (17:00)
[2016-09-21 17:55] LABS: MAGNESIUM 2.3 mg/dl (1.8-2.4)
[2016-09-21] MEDS: SODIUM CHLORIDE 0.9% 1000ML 1,000 ML IV SCH (20:42)
[2016-09-21] MEDS: ACETAMINOPHEN 325 MG TAB PO PRN (20:43)
[2016-09-21] MEDS ORDERED: ENOXAPARIN 40 MG/0.4 ML SYR SQ SCH (21:00)
[2016-09-21] MEDS: AMPICILLIN/SULBACTAM SOD INJ 3,000 MG in SODIUM CHLORIDE 0.9% 100ML 100 ML IV SCH (21:50)
[2016-09-21] MEDS: AZATHIOPRINE 50 MG TAB PO SCH (21:50)
[2016-09-22] VITALS: BP 138/80; TEMP 36.5; O2SAT 96
[2016-09-22] MEDS: ACETAMINOPHEN 325 MG TAB PO PRN ×2 (03:45→21:06)
[2016-09-22] MEDS: AMPICILLIN/SULBACTAM SOD INJ 3,000 MG in SODIUM CHLORIDE 0.9% 100ML 100 ML IV SCH ×4 (04:51→21:05)
[2016-09-22] MEDS: SODIUM CHLORIDE 0.9% 1000ML 1,000 ML IV SCH ×2 (04:52→21:04)
[2016-09-22 07:15] LABS: HEMATOCRIT 32.2 % (37-47); MEAN CELL VOLUME 96.1 fL (80-100); MEAN CORPUSCULAR HEMOGLOBIN 32.2 pg (25-34); MEAN CORPUSCULAR HGB CONC 33.5 g/dl (32-36); MEAN PLATELET VOLUME 9.3 fL (7.4-10.4); PLATELET COUNT 215 K/uL (130-400); RED BLOOD COUNT 3.35 M/uL (4.2-5.4); WHITE BLOOD COUNT 4.45 K/uL (4.8-10.8)
[2016-09-22 07:32] VITALS: BP 101/60; PULSE 55; TEMP 36.5; O2SAT 96
[2016-09-22] MEDS ORDERED: NON-FORMULARY MEDICATION (Potassium 99 MG) PO SCH (08:00)
[2016-09-22 08:15] LABS: BUN/CREATININE RATIO 7.6 (10-20); CALCIUM 8.4 mg/dl (8.5-10.1); CREATININE 0.58 mg/dl (0.60-1.20); POTASSIUM 3.6 mmol/L (3.5-5.1)
[2016-09-22] MEDS: MAGNESIUM OXIDE 400 MG TAB PO SCH (08:15)
[2016-09-22] MEDS: SERTRALINE HCL 50 MG TAB PO SCH (08:16)
[2016-09-22] MEDS: TOCOPHERYL, DL-ALPHA 100 INTERUNIT CAP PO SCH (08:16)
[2016-09-22] MEDS: PANTOprazole SOD 40 MG TAB PO SCH (08:16)
--- NOTE | 2016-09-22 10:45 | Gastrointestinal Consultation ---
Gastrointestinal Consultation Date of Consultation: Sep 22, 2016 Attending Physician: Dr. Villalpando Consulting Physician: Pastora Potter PA-C Reason for Consultation: Diverticulitis History of Present Illness Patient is a 81 year old female who presented to the hospital for worsening diverticulitis. She was recently diagnosed with an episode of diverticulitis as an outpatient. She was diagnosed in the ER several weeks ago. She was started on Cipro & Flagyl. She finished this course of antibiotics on 09/14. Patient reports that despite therapy she continued with loose stools, mild crampy abdominal pain, & nausea. Her pain is located in the LLQ and is relieved with defecation. She denies fevers or chills. She presented to the ER again. A CT scan indicated mild sigmoid diverticulitis of the sigmoid & descending colon. There was no evidence of abscess. This is the patient's third episode of diverticulitis within the past 1 year per her reports. She believes she has had several more, however she did not go to the doctor for these because they were milder. She had a colonoscopy in [address] Robins that indicated diverticula. She reports that she is feeling great since being placed on IV antibiotics. She is on a clear liquid diet. Her bowel habits are returning to normal. C diff testing was negative. She is afebrile. Past Medical/Surgical History Medical Problems: (1) Abdominal pain Status: Acute (2) Acute diverticulitis Status: Acute (3) Dehydration Status: Acute (4) Diverticulitis Status: Acute (5) Enteritis Status: Acute (6) Nausea Status: Acute (7) Weakness Status: Acute Past Medical History: Anxiety, DVT, Diverticulosis, Diverticulitis, Dyslipidemia, GERD, Schatzki rings , urticaria, CVA, hiatal hernia, PUD, Paroxysmal Atrial Fibrillation Past Surgical History: Blepharoplasty, Cervical laminectomy, Elbow surgery, EGD, Colonoscopy, excision of radial head, hernia repair, vaginal defect repair, sacral nerve stimulator implant, vesicourethropexy, hysterectomy, cholecystectomy, appendectomy, cataract surgery, hip replacement Family History Omitted secondary to age Denies IBD or GI malignancy Social History Smoking Status: Former Smoker Alcohol Use: none Drug Use: none Marital Status: Housing Status: lives with family Occupation Status: retired Allergies Coded Allergies: Iodinated Contrast Media (Verified Allergy, Intermediate, CONTRAST MEDIA- RASH,HIVES, 09/21/16) Oxycodone (Verified Allergy, Intermediate, PERCOCET-SWELLING OF ARMS, SHOULDERS, 09/21/16) SWELLING OF ARMS/SHOULDERS Corticosteroids (Verified Allergy, Unknown, STERIOD INJECTIONS - FLUSHING AND BLOTCHING REDNESS, 09/21/16) Mepivacaine (Verified Allergy, Unknown, 09/21/16) Morphine (Verified Allergy, Unknown, RASH, 09/21/16) Tetracyclines (Verified Allergy, Unknown, 09/21/16) Codeine (Verified Adverse Reaction, Mild, GI UPSET, 09/21/16) Fenoprofen (Verified Adverse Reaction, Unknown, NALFON-HEPATITIS, CAN TAKE MOTRIN, 09/21/16) Current Medications Home Meds and Scripts Medications Dose Route/Sig Max Daily Dose Days Date Category Magnesium (Magnesium Oxide (Mg Supplement) 400 Mg Cap 400 Mg PO DAILY 09/21/16 Reported Potassium 99 Mg Tab 99 Mg PO DAILY 09/21/16 Reported Zoloft (Sertraline HCl) 50 Mg Tab 50 Mg PO DAILY 09/21/16 Reported Zofran Odt (Ondansetron HCl) 4 Mg Tab 4 Mg SL Q6H 09/04/16 Rx Klonopin (Clonazepam) 0.5 Mg Tab 0.5 Mg PO HS PRN 03/20/16 Reported Protonix (Pantoprazole Sodium) 40 Mg Tab 40 Mg PO QAM 03/20/16 Reported Alph-E (Vitamin E) 400 Unit Cap 1 Cap PO QAM 03/20/16 Reported Tylenol Arthritis Ext Rel (Acetaminophen) 650 Mg Cplt 2 Tab PO Q8H PRN 03/20/16 Reported Imuran (Azathioprine) 50 Mg Tab 50 Mg PO HS 03/20/16 Reported Review of Systems Constitutional: No chills, No fever Eyes: No problem reported Respiratory: No cough, No shortness of breath Cardiac: No chest pain Abdomen: No GI bleeding, No constipation, No diarrhea, No nausea, No pain, No vomiting Musculoskeletal: No joint pain Psych: No problem reported Skin: No problem reported Physical Exam Date Time Temp Pulse Resp B/P Pulse Ox O2 Delivery O2 Flow Rate FiO2 09/22/16 07:32 36.5 55 16 101/60 96 Room Air 09/22/16 00:58 Room Air 09/22/16 00:00 36.5 18 138/80 96 Room Air 09/21/16 16:40 97 Room Air 09/21/16 16:20 66 20 127/75 97 Room Air 09/21/16 15:38 64 18 140/65 94 Room Air 09/21/16 13:46 66 16 124/67 97 Room Air 09/21/16 11:05 37.0 85 18 107/67 96 Room Air General Appearance: WD/WN, no apparent distress Eyes: normal inspection ENT: hearing grossly normal Respiratory/Chest: lungs clear, normal breath sounds, no respiratory distress Cardiovascular: regular rate, rhythm Abdomen: normal bowel sounds, non tender, soft Extremities: non-tender Neurologic/Psych: alert, oriented x 3 Laboratory Results Last 24 Hours Test 09/21/16 12:27 09/21/16 12:37 09/22/16 06:58 White Blood Count 8.19 K/uL 4.45 K/uL Red Blood Count 3.93 M/uL 3.35 M/uL Hemoglobin 12.8 g/dL 10.8 g/dL Hematocrit 37.8 % 32.2 % Mean Corpuscular Volume 96.2 fL 96.1 fL Mean Corpuscular Hemoglobin 32.6 pg 32.2 pg Mean Corpuscular Hemoglobin Concent 33.9 g/dl 33.5 g/dl Platelet Count 287 K/uL 215 K/uL Mean Platelet Volume 9.8 fL 9.3 fL Neutrophils (%) (Auto) 70.8 % Lymphocytes (%) (Auto) 14.0 % Monocytes (%) (Auto) 12.6 % Eosinophils (%) (Auto) 2.2 % Basophils (%) (Auto) 0.2 % Neutrophils # (Auto) 5.79 K/uL Lymphocytes # (Auto) 1.15 K/uL Monocytes # (Auto) 1.03 K/uL Eosinophils # (Auto) 0.18 K/uL Basophils # (Auto) 0.02 K/uL RDW Standard Deviation 48.3 fL 48.4 fL RDW Coefficient of Variation 13.7 % 13.8 % Immature Granulocyte % (Auto) 0.2 % Immature Granulocyte # (Auto) 0.02 K/uL Sodium Level 142 mmol/L 145 mmol/L Potassium Level 3.3 mmol/L 3.6 mmol/L Chloride Level 105 mmol/L 108 mmol/L Carbon Dioxide Level 29 mmol/L 31 mmol/L Anion Gap 8.0 mmol/L 6.0 mmol/L Blood Urea Nitrogen 10 mg/dl 4 mg/dl Creatinine 0.74 mg/dl 0.58 mg/dl Est Creatinine Clear Calc Drug Dose 49.9 ml/min 63.6 ml/min Estimated GFR () 88.1 100.2 Estimated GFR (Non- 76.0 86.4 BUN/Creatinine Ratio 12.8 7.6 Random Glucose 104 mg/dl 83 mg/dl Calcium Level 8.7 mg/dl 8.4 mg/dl Magnesium Level 2.3 mg/dl 2.0 mg/dl Total Bilirubin 0.4 mg/dl Aspartate Amino Transf (AST/SGOT) 16 U/L Alanine Aminotransferase (ALT/SGPT) 11 U/L Alkaline Phosphatase 90 U/L Total Protein 7.4 gm/dl Albumin 3.3 gm/dl Globulin 4.1 gm/dl Albumin/Globulin Ratio 0.8 Prothrombin Time 11.4 SECONDS Prothromb Time International Ratio 1.1 Activated Partial Thromboplast Time 26.1 SECONDS Partial Thromboplastin Ratio 1.0 Impression Patient is a 81 year old female who presented with diverticulitis after failing outpatient antibiotic therapy. She is presently on Unasyn and is feeling well. She has a history of recurrent diverticulitis. Plan 1) Continue Unasyn 3,000 mg q 6hr as patient has improved on this medication. If deteriorating, could considering increasing coverage to Zosyn. 2) General surgery consult for further input regarding recurrent diverticulitis. 3) Continue clear liquid diet for now. 4) Supportive care per primary team. Thank you for allowing us to participate in the care of this patient. If you should have any further questions or concerns, do not hesitate to contact us. Agree with CHRISSY Holden as above Abd: Soft, Tender LLQ, ND, +BS Continue current therapy Surgery consult for recurrent diverticulitis Consider colonoscopy in 6 weeks as outpatient.
--- NOTE | 2016-09-22 12:26 | Progress Note ---
Internal Med Progress Note Date of Service: Sep 22, 2016. Provider Documentation: SUBJECTIVE: Seen and examined at bedside. She feels better today. Nausea, vomiting, diarrhea resolved. Abd pain is improving. Tolerating diet. Offers no other complaints. OBJECTIVE: Vital Signs-as noted below Physical Exam: General Appearance:Thin, fragile, no apparent distress Head: normocephalic, Atraumatic Eyes: normal inspection, EOMI, PERRLA, Anicteric Neck: supple, Trachea midline Respiratory/Chest: Normal breath sounds, CTA, No accessory muscle use Cardiovascular: S1, S2, No murmur Abdomen/GI:Soft, + mild tender in RLQ AND LLQ, normal Bowel sounds, No guarding/ rigidity Extremities/Musculoskelatal:normal inspection, no edema Neurologic/Psych:AAOX3, grossly no focal neurological deficits Skin:normal color,warm Lab data as noted below. ASSESSMENT & PLAN: Patient is an 81 yr old female with PMH of Autoimmune hepatitis, GERD, Dyslipidemia who was recently discharged from ED after being treated for mild diverticulitis with a 10 day course of cipro and flagyl presents with history of persistent non bloody diarrhea, nausea, intermittent dizziness and intermittent crampy abdominal pain which relieves with bowel movements. ACUTE DIVERTICULITIS/COLITIS Failed out patient antibiotic therapy with Cipro/Flagyl CT abd:Findings suggestive of diverticulosis and colitis of sigmoid and descending colon; no abscess, no signs of obstruction Stool is negative for C.diff Continue IVF and Unasyn Continue clear liquid diet for now Appreciate GI input Surgery consulted per GI recommendations Appetite improving HYPOKALEMIA likely from GI losses Resolved Continue to monitor H/O CVA no residual deficits not on ASA or Plavix Stable ANXIETY/DEPRESSION stable cont Zoloft and Klonopin AUTOIMMUNE HEPATITIS normal LFTs continue Imuran GERD continue PPI DVT PROPHYLAXIS Lovenox SQ CODE STATUS DNR per discussion with patient upon admission Vital Signs: Date Time Temp Pulse Resp B/P Pulse Ox O2 Delivery O2 Flow Rate FiO2 09/22/16 08:20 Room Air 09/22/16 07:32 36.5 55 16 101/60 96 Room Air 09/22/16 00:58 Room Air 09/22/16 00:00 36.5 18 138/80 96 Room Air 09/21/16 16:40 97 Room Air 09/21/16 16:20 66 20 127/75 97 Room Air 09/21/16 15:38 64 18 140/65 94 Room Air 09/21/16 13:46 66 16 124/67 97 Room Air Lab Results: Results Past 24 Hours Test 09/21/16 12:37 09/22/16 06:58 Range/Units Prothrombin Time 11.4 9.0-12.0 SECONDS Prothromb Time International Ratio 1.1 0.9-1.1 Activated Partial Thromboplast Time 26.1 21.0-31.0 SECONDS Partial Thromboplastin Ratio 1.0 White Blood Count 4.45 4.8-10.8 K/uL Red Blood Count 3.35 4.2-5.4 M/uL Hemoglobin 10.8 12.0-16.0 g/dL Hematocrit 32.2 37-47 % Mean Corpuscular Volume 96.1 80-100 fL Mean Corpuscular Hemoglobin 32.2 25-34 pg Mean Corpuscular Hemoglobin Concent 33.5 32-36 g/dl RDW Standard Deviation 48.4 36.4-46.3 fL RDW Coefficient of Variation 13.8 11.5-14.5 % Platelet Count 215 130-400 K/uL Mean Platelet Volume 9.3 7.4-10.4 fL Sodium Level 145 136-145 mmol/L Potassium Level 3.6 3.5-5.1 mmol/L Chloride Level 108 98-107 mmol/L Carbon Dioxide Level 31 21-32 mmol/L Anion Gap 6.0 3-11 mmol/L Blood Urea Nitrogen 4 7-18 mg/dl Creatinine 0.58 0.60-1.20 mg/dl Est Creatinine Clear Calc Drug Dose 63.6 ml/min Estimated GFR () 100.2 Estimated GFR (Non- 86.4 BUN/Creatinine Ratio 7.6 10-20 Random Glucose 83 70-99 mg/dl Calcium Level 8.4 8.5-10.1 mg/dl Magnesium Level 2.0 1.8-2.4 mg/dl Microbiology Results 09/21/16 Blood Culture, Received Pending 09/21/16 Blood Culture, Received Pending 09/21/16 Shiga Toxin Test - Preliminary, Resulted 09/21/16 Stool Culture - Preliminary, Resulted NO SALMONELLA ISOLATED TO DATE,... 09/21/16 C.difficile Toxin B Gene (PCR) - Final, Complete No C. difficile toxin B gene detected
[2016-09-22 15:29] VITALS: BP 135/64; PULSE 74; TEMP 36.7; O2SAT 96
[2016-09-22] MEDS: ENOXAPARIN 30 MG/0.3 ML SYR SQ SCH (19:58)
[2016-09-22] MEDS: CLONAZEPAM 0.5 MG TAB PO PRN (21:05)
[2016-09-22] MEDS: AZATHIOPRINE 50 MG TAB PO SCH (21:06)
[2016-09-22 23:37] VITALS: BP 128/66; PULSE 62; TEMP 36.5; O2SAT 95
[2016-09-23] MEDS: AMPICILLIN/SULBACTAM SOD INJ 3,000 MG in SODIUM CHLORIDE 0.9% 100ML 100 ML IV SCH ×4 (04:06→21:42)
--- NOTE | 2016-09-23 07:02 | CONSULTATION REPORT ---
DATE OF CONSULTATION: 09/22/2016 REASON FOR CONSULT: Recurrent diverticulitis. HISTORY OF PRESENT ILLNESS: The patient is an 81-year-old female admitted last evening for worsening diarrhea, abdominal pain and nausea. She was seen in the ER 2 weeks ago on September [address] at that time indicated diverticulitis and she was prescribed outpatient oral Cipro and Flagyl. She improved while on the antibiotics other than having some nausea. Her diarrhea also improved. A few days after completing the 10 days of antibiotics, she began to have frequent loose stools, crampy abdominal pain, beginning on Thursday. She came back to the Emergency Room on Thursday and was subsequently readmitted. She feels a little better this afternoon, she thinks mostly due to the antibiotics. She is tolerating clear liquids. She has not had a bowel movement for the past 2-3 hours, but earlier today had 3 in short succession. Her last colonoscopy was in [address] Robins. She was having diarrhea at that time. She has known about diverticula but has not been specifically diagnosed with diverticulitis or been treated with antibiotics in the past for this. She has had intermittent discomfort or diarrhea over the last several years which she attributed to mild diverticulitis but was never seen by Dr. Brock or her family doctor. PAST MEDICAL HISTORY: Anxiety, DVT, dyslipidemia, GERD, hiatal hernia, paroxysmal atrial fibrillation, Schatzki ring and CVA in 2011. PAST SURGICAL HISTORY: Bilateral hip replacements, hysterectomy, cholecystectomy, appendectomy, laminectomy, elbow surgery, colonoscopy, hernia repair. SOCIAL HISTORY: History of tobacco use. She is . ALLERGIES: OXYCODONE, CORTICOSTEROIDS, MORPHINE, TETRACYCLINE, CODEINE, FENOPROFEN, IV CONTRAST. HOME MEDICATIONS: Magnesium oxide, potassium, Zoloft, Zofran, Klonopin, Protonix, Tylenol Arthritis, Imuran and recently finished course of Cipro and Flagyl. INPATIENT MEDS: Include Lovenox 30 mg subQ daily, Protonix 40 mg daily, Zoloft 50 mg daily, magnesium oxide 400 mg daily, Unasyn 3 g IV q. 6 hours, Imuran 50 mg at bedtime, Tylenol 650 mg q. 4 hours as needed, Zofran 4 mg as needed, IV is sodium chloride 50 mL an hour and Klonopin 0.5 mg p.o. at bedtime. REVIEW OF SYSTEMS: GENERAL: No fevers or chills. She has lost a few pounds over the last few weeks with her diarrhea. GASTROINTESTINAL: She had been tolerating regular food at home, but her appetite has been decreased. No bloody or mucusy bowel movements. CARDIAC: No chest pain, no history of PR or stenting. Denies claudication. OBJECTIVE: GENERAL: This is a healthy appearing older female in no acute distress. VITAL SIGNS: Temperature 36.7, pulse 74, respirations are 18, blood pressure 135/64, pulse ox 96% on room air. HEENT: Unremarkable. HEART: Regular rate and rhythm. LUNGS: Clear. ABDOMEN: Soft, minimally distended. Midline surgical scar, mild left lower quadrant tenderness, some voluntary guarding. EXTREMITIES: Without edema. LABORATORY DATA: White count today is 4000, yesterday was 8000. Two weeks ago, her white count was 9000. Her hemoglobin is 10.8 from 12.8 yesterday, platelets 215,000. Sodium 145, potassium 3.6, BUN 4, creatinine 0.58, glucose 83. IMAGING: CT of the abdomen and pelvis shows sigmoid and descending colon diverticulosis. Some moderate generalized wall thickening. There is no abscess or free air. IMPRESSION: Descending and sigmoid colon colitis, possibly diverticulitis. PLAN: Although this may be diverticulitis we should continue to rule out other causes for her colitis. C. diff has been negative. She never really developed much of a white count, although she did improve with oral antibiotics and has shown some early improvement with IV antibiotics. Certainly, she does not have any acute abdominal findings. We will see how she improves with IV therapy over the next few days and plan to continue an extended oral antibiotic. Depending on her progress, we may consider colonoscopy and can discuss the timing of that further with GI. At her request, we will review the case with Dr. Burnette but I do not see anything at this time or in the near future that would necessitate surgery. We will continue to follow her progress. REGGIE
[2016-09-23 07:24] LABS: BASO % 0.3 %; BASO ABS # 0.02 K/uL (0-0.2); COMPLETE YES; HEMATOCRIT 34.3 % (37-47); IG% 0.2 %; LYMPH % 9.5 %; LYMPH ABS # 0.61 K/uL (1.2-3.4); MEAN CELL VOLUME 95.5 fL (80-100); MEAN CORPUSCULAR HGB CONC 33.5 g/dl (32-36); MEAN PLATELET VOLUME 9.9 fL (7.4-10.4); MONO % 13.5 %; NEUT % 73.5 %; PLATELET COUNT 245 K/uL (130-400); RED BLOOD COUNT 3.59 M/uL (4.2-5.4); WHITE BLOOD COUNT 6.39 K/uL (4.8-10.8)
[2016-09-23 07:31] VITALS: BP 112/56; PULSE 63; TEMP 37.1; O2SAT 98
[2016-09-23 07:46] LABS: BUN/CREATININE RATIO 5.9 (10-20); CALCIUM 8.4 mg/dl (8.5-10.1); CREATININE 0.61 mg/dl (0.60-1.20); POTASSIUM 3.2 mmol/L (3.5-5.1)
--- NOTE | 2016-09-23 08:06 | Surgery Progress Note ---
Surgery Progress Note Date of Service Sep 23, 2016. Subjective + feeling well pt feeling ok...only complaint is "tired today". denies abdominal pain or diarrhea today. Objective Vital Signs: Date Time Temp Pulse Resp B/P Pulse Ox O2 Delivery O2 Flow Rate FiO2 09/23/16 07:31 37.1 63 18 112/56 98 Nasal Cannula 2.0 09/23/16 00:01 Room Air 09/22/16 23:37 36.5 62 18 128/66 95 Room Air 09/22/16 20:00 Room Air 09/22/16 15:29 36.7 74 18 135/64 96 Room Air 09/22/16 15:20 Room Air 09/22/16 08:20 Room Air General Appearance: no apparent distress Head: normocephalic Neck: supple Respiratory/Chest: no respiratory distress, no accessory muscle use Cardiovascular: no edema Abdomen: non tender, non distended, soft Extremities: normal range of motion, non-tender Laboratory Results: Results Past 24 Hours Test 09/23/16 06:31 Range/Units White Blood Count 6.39 4.8-10.8 K/uL Red Blood Count 3.59 4.2-5.4 M/uL Hemoglobin 11.5 12.0-16.0 g/dL Hematocrit 34.3 37-47 % Mean Corpuscular Volume 95.5 80-100 fL Mean Corpuscular Hemoglobin 32.0 25-34 pg Mean Corpuscular Hemoglobin Concent 33.5 32-36 g/dl Platelet Count 245 130-400 K/uL Mean Platelet Volume 9.9 7.4-10.4 fL Neutrophils (%) (Auto) 73.5 % Lymphocytes (%) (Auto) 9.5 % Monocytes (%) (Auto) 13.5 % Eosinophils (%) (Auto) 3.0 % Basophils (%) (Auto) 0.3 % Neutrophils # (Auto) 4.70 1.4-6.5 K/uL Lymphocytes # (Auto) 0.61 1.2-3.4 K/uL Monocytes # (Auto) 0.86 0.11-0.59 K/uL Eosinophils # (Auto) 0.19 0-0.5 K/uL Basophils # (Auto) 0.02 0-0.2 K/uL RDW Standard Deviation 47.3 36.4-46.3 fL RDW Coefficient of Variation 13.5 11.5-14.5 % Immature Granulocyte % (Auto) 0.2 % Immature Granulocyte # (Auto) 0.01 0.00-0.02 K/uL Sodium Level 145 136-145 mmol/L Potassium Level 3.2 3.5-5.1 mmol/L Chloride Level 107 98-107 mmol/L Carbon Dioxide Level 30 21-32 mmol/L Anion Gap 8.0 3-11 mmol/L Blood Urea Nitrogen 4 7-18 mg/dl Creatinine 0.61 0.60-1.20 mg/dl Est Creatinine Clear Calc Drug Dose 60.5 ml/min Estimated GFR () 98.5 Estimated GFR (Non- 85.0 BUN/Creatinine Ratio 5.9 10-20 Random Glucose 79 70-99 mg/dl Calcium Level 8.4 8.5-10.1 mg/dl Assessment & Plan colitis/diverticulitis clinically responding to IV antibiotics rec GI consult to plan for colonoscopy once inflammation resolves- last colonoscopy approx 7 years ago in face of 30 lb unexplained weightloss in past year no surgery indicated at this time. will see pt in 3 weeks after d/c ...if her symptoms continue to recur elective colectomy of the involved segment could be discussed ? etiology...diverticulitis vs bacterial colitis vs ischemia etc... please call us if needed again this admission, otherwise I will see her in the office in 3-4 weeks. thank you.
[2016-09-23] MEDS: TOCOPHERYL, DL-ALPHA 100 INTERUNIT CAP PO SCH (08:25)
[2016-09-23] MEDS: MAGNESIUM OXIDE 400 MG TAB PO SCH (08:25)
[2016-09-23] MEDS: PANTOprazole SOD 40 MG TAB PO SCH (08:25)
[2016-09-23] MEDS: SERTRALINE HCL 50 MG TAB PO SCH (08:26)
[2016-09-23] MEDS ORDERED: POTASSIUM CHLORIDE 20 MEQ TABCR PO ONE (08:45)
--- NOTE | 2016-09-23 09:46 | Gastroenterology Progress Note ---
Progress Note Date of Service: Sep 23, 2016 Subjective Pt evaluation today including: conversation w/ patient, physical exam, lab review, review of studies Follow-up of 81 yo female with LLQ pain & CT findings of sigmoid diverticulitis. She reports significant improvement. She is not having any loose stools at present. She denies abdominal pain. She is pleased with her progress. She is afebrile without leukocytosis. She is presently on IV Unasyn. Review of Systems Constitutional: No chills, No fever Respiratory: No cough, No shortness of breath Cardiac: No chest pain Abdomen: No GI bleeding, No constipation, No diarrhea, No nausea, No pain, No vomiting Musculoskeletal: No problem reported Psych: No problem reported Skin: No problem reported Medications Current Inpatient Medications Medications (Trade) Dose Ordered Sig/Kelse[place] Route Start Time Stop Time Status Last Admin Dose Admin Acetaminophen (Tylenol Tab) 650 mg Q4H PRN PO 09/21/16 16:30 10/21/16 16:29 09/22/16 21:06 650 MG Ondansetron HCl 4 mg 4 mg Q6H PRN IV 09/21/16 16:30 10/21/16 16:29 Sodium Chloride 1,000 ml @ 50 mls/hr Q20H IV 09/21/16 16:30 10/21/16 16:29 09/22/16 21:04 50 MLS/HR Ampicillin Sodium/ Sulbactam Sodium/ Sodium Chloride (Unasyn Inj/Nss 100ml) 108 ml @ 200 mls/hr Q6H IV 09/21/16 22:00 10/01/16 16:29 09/23/16 04:06 200 MLS/HR Azathioprine (Imuran Tab) 50 mg HS PO 09/21/16 21:00 10/21/16 20:59 09/22/16 21:06 50 MG Clonazepam (Klonopin Tab) 0.5 mg HS PRN PO 09/21/16 16:30 10/21/16 16:29 09/22/16 21:05 0.5 MG Pantoprazole Sodium (Protonix Tab) 40 mg QAM PO 09/22/16 08:00 10/22/16 08:59 09/23/16 08:25 40 MG Sertraline HCl (Zoloft Tab) 50 mg DAILY PO 09/22/16 08:00 10/22/16 08:59 09/23/16 08:26 50 MG cl-Nwxzm-Rmqhrzokwj Acetate (Vitamin E Cap) 300 interunit QAM PO 09/22/16 08:00 10/22/16 08:59 09/23/16 08:25 300 INTERUNIT Magnesium Oxide (Mag-Ox Tab) 400 mg DAILY PO 09/22/16 08:00 10/22/16 08:59 09/23/16 08:25 400 MG Enoxaparin Sodium (Lovenox Inj) 30 mg Q24H SQ 09/22/16 21:00 10/22/16 20:59 09/22/16 19:58 30 MG Objective Vital Signs Date Time Temp Pulse Resp B/P Pulse Ox O2 Delivery O2 Flow Rate FiO2 09/23/16 07:31 37.1 63 18 112/56 98 Nasal Cannula 2.0 09/23/16 00:01 Room Air 09/22/16 23:37 36.5 62 18 128/66 95 Room Air 09/22/16 20:00 Room Air 09/22/16 15:29 36.7 74 18 135/64 96 Room Air 09/22/16 15:20 Room Air Physical Exam General Appearance: WD/WN, no apparent distress Eyes: normal inspection, PERRL ENT: hearing grossly normal Respiratory/Chest: lungs clear, normal breath sounds Cardiovascular: regular rate, rhythm Abdomen: non tender, soft, + abnormal bowel sounds (hyperactive bowel sounds) Extremities: non-tender Neurologic/Psych: alert, oriented x 3 Skin: normal color Laboratory Results Last 24 Hours Test 09/23/16 06:31 White Blood Count 6.39 K/uL Red Blood Count 3.59 M/uL Hemoglobin 11.5 g/dL Hematocrit 34.3 % Mean Corpuscular Volume 95.5 fL Mean Corpuscular Hemoglobin 32.0 pg Mean Corpuscular Hemoglobin Concent 33.5 g/dl Platelet Count 245 K/uL Mean Platelet Volume 9.9 fL Neutrophils (%) (Auto) 73.5 % Lymphocytes (%) (Auto) 9.5 % Monocytes (%) (Auto) 13.5 % Eosinophils (%) (Auto) 3.0 % Basophils (%) (Auto) 0.3 % Neutrophils # (Auto) 4.70 K/uL Lymphocytes # (Auto) 0.61 K/uL Monocytes # (Auto) 0.86 K/uL Eosinophils # (Auto) 0.19 K/uL Basophils # (Auto) 0.02 K/uL RDW Standard Deviation 47.3 fL RDW Coefficient of Variation 13.5 % Immature Granulocyte % (Auto) 0.2 % Immature Granulocyte # (Auto) 0.01 K/uL Sodium Level 145 mmol/L Potassium Level 3.2 mmol/L Chloride Level 107 mmol/L Carbon Dioxide Level 30 mmol/L Anion Gap 8.0 mmol/L Blood Urea Nitrogen 4 mg/dl Creatinine 0.61 mg/dl Est Creatinine Clear Calc Drug Dose 60.5 ml/min Estimated GFR () 98.5 Estimated GFR (Non- 85.0 BUN/Creatinine Ratio 5.9 Random Glucose 79 mg/dl Calcium Level 8.4 mg/dl Assessment and Plan Patient is an 81 yo female with recurrent diverticulitis. She is improving on IV antibiotic therapy after failing outpatient treatment. 1) Continue IV antibiotic therapy at present as she has improved significantly. Agree with general surgery--patient should receive 1-2 more days of IV antibiotics prior to transition to po antibiotic therapy for discharge. 2) Clear liquid diet at present. When advanced, did discuss low-residue diet. 3) Plan for outpatient colonoscopy in 6-8 weeks for further evaluation. Will have our office facilitate scheduling this procedure and contact patient at discharge. 4) Surgical plans pending response to therapy & recurrent symptoms in the future. 5) Supportive care per primary team. Thank you for allowing us to participate in the care of this patient. If you should have any further questions or concerns, do not hesitate to contact us. Agree with CHRISSY Holden as above Abd: Soft, tender LLQ, ND, +BS Will plan on outpatient colonoscopy in 6 weeks if patient has resolution of Diverticulitis. Continue current therapy
--- NOTE | 2016-09-23 15:06 | Progress Note ---
Medicine Progress Note Date & Time of Visit: Sep 23, 2016 at 15:00. Subjective Patient seen and examined. Had a watery bowel movement this morning. Noted some abdominal cramping prior. Does not feel ready to go home yet. Lives alone. Overall, diarrhea has decreased in frequency. Objective Last 8 Hrs Date Time Temp Pulse Resp B/P Pulse Ox O2 Delivery O2 Flow Rate FiO2 09/23/16 08:00 Room Air 09/23/16 07:31 37.1 63 18 112/56 98 Nasal Cannula 2.0 Physical Exam: General-awake; alert; NAD; sitting in chair Eyes-EOMI; no scleral icterus Neck-no stridor; trachea midline Lungs-CTA bilaterally; no wheezes/crackles Heart-RRR; no m/r/g Abdomen-soft; ND; mildly tender to palpation LUQ and RLQ; nBS Extremities-no c/c/e; no deformity Neuro-no gross focal deficits Laboratory Results: Last 24 Hours Test 09/23/16 06:31 White Blood Count 6.39 K/uL Red Blood Count 3.59 M/uL Hemoglobin 11.5 g/dL Hematocrit 34.3 % Mean Corpuscular Volume 95.5 fL Mean Corpuscular Hemoglobin 32.0 pg Mean Corpuscular Hemoglobin Concent 33.5 g/dl Platelet Count 245 K/uL Mean Platelet Volume 9.9 fL Neutrophils (%) (Auto) 73.5 % Lymphocytes (%) (Auto) 9.5 % Monocytes (%) (Auto) 13.5 % Eosinophils (%) (Auto) 3.0 % Basophils (%) (Auto) 0.3 % Neutrophils # (Auto) 4.70 K/uL Lymphocytes # (Auto) 0.61 K/uL Monocytes # (Auto) 0.86 K/uL Eosinophils # (Auto) 0.19 K/uL Basophils # (Auto) 0.02 K/uL RDW Standard Deviation 47.3 fL RDW Coefficient of Variation 13.5 % Immature Granulocyte % (Auto) 0.2 % Immature Granulocyte # (Auto) 0.01 K/uL Sodium Level 145 mmol/L Potassium Level 3.2 mmol/L Chloride Level 107 mmol/L Carbon Dioxide Level 30 mmol/L Anion Gap 8.0 mmol/L Blood Urea Nitrogen 4 mg/dl Creatinine 0.61 mg/dl Est Creatinine Clear Calc Drug Dose 60.5 ml/min Estimated GFR () 98.5 Estimated GFR (Non- 85.0 BUN/Creatinine Ratio 5.9 Random Glucose 79 mg/dl Calcium Level 8.4 mg/dl Assessment & Plan ACUTE DIVERTICULITIS/COLITIS Failed outpatient antibiotic therapy with PO Cipro/Flagyl CT abd: Findings suggestive of diverticulosis and colitis of sigmoid and descending colon; no abscess, no signs of obstruction Stool is negative for C.diff Continue IVF and Unasyn Continue clear liquid diet GI consulted; plan for outpatient colonoscopy General surgery consulted; no surgical intervention at this time HYPOKALEMIA Likely from GI losses Potassium and magnesium supplementation H/O CVA No residual deficits Not on ASA or Plavix Stable ANXIETY/DEPRESSION Stable Continue Zoloft and Klonopin H/O AUTOIMMUNE HEPATITIS Continue Imuran GERD Continue PPI DVT PROPHYLAXIS Lovenox SQ Consultants: Gastroenterology General surgery Procedures: CT a/p Findings suggesting mild sigmoid and to lesser extent descending colonic diverticulosis/colitis. Moderate generalized wall thickening. No evidence for abscess collection or obstruction. Current Inpatient Medications: Current Inpatient Medications Medications (Trade) Dose Ordered Sig/Kelsea Route Start Time Stop Time Status Last Admin Dose Admin Acetaminophen (Tylenol Tab) 650 mg Q4H PRN PO 09/21/16 16:30 10/21/16 16:29 09/22/16 21:06 650 MG Ondansetron HCl 4 mg 4 mg Q6H PRN IV 09/21/16 16:30 10/21/16 16:29 Sodium Chloride 1,000 ml @ 50 mls/hr Q20H IV 09/21/16 16:30 10/21/16 16:29 09/22/16 21:04 50 MLS/HR Ampicillin Sodium/ Sulbactam Sodium/ Sodium Chloride (Unasyn Inj/Nss 100ml) 108 ml @ 200 mls/hr Q6H IV 09/21/16 22:00 10/01/16 16:29 09/23/16 10:29 200 MLS/HR Azathioprine (Imuran Tab) 50 mg HS PO 09/21/16 21:00 10/21/16 20:59 09/22/16 21:06 50 MG Clonazepam (Klonopin Tab) 0.5 mg HS PRN PO 09/21/16 16:30 10/21/16 16:29 09/22/16 21:05 0.5 MG Pantoprazole Sodium (Protonix Tab) 40 mg QAM PO 09/22/16 08:00 10/22/16 08:59 09/23/16 08:25 40 MG Sertraline HCl (Zoloft Tab) 50 mg DAILY PO 09/22/16 08:00 10/22/16 08:59 09/23/16 08:26 50 MG mt-Rccym-Tyrgihkzcg Acetate (Vitamin E Cap) 300 interunit QAM PO 09/22/16 08:00 10/22/16 08:59 09/23/16 08:25 300 INTERUNIT Magnesium Oxide (Mag-Ox Tab) 400 mg DAILY PO 09/22/16 08:00 10/22/16 08:59 09/23/16 08:25 400 MG Enoxaparin Sodium (Lovenox Inj) 30 mg Q24H SQ 09/22/16 21:00 10/22/16 20:59 09/22/16 19:58 30 MG Potassium Chloride (Klor-Con Tab) 20 meq QAM PO 09/24/16 08:00 10/24/16 07:59 UNV
[2016-09-23 15:16] VITALS: BP 124/73; PULSE 59; TEMP 37; O2SAT 95
[2016-09-23] MEDS: SODIUM CHLORIDE 0.9% 1000ML 1,000 ML IV SCH (16:06)
[2016-09-23] MEDS: ENOXAPARIN 30 MG/0.3 ML SYR SQ SCH (20:28)
[2016-09-23] MEDS: AZATHIOPRINE 50 MG TAB PO SCH (21:42)
[2016-09-23] MEDS: ACETAMINOPHEN 325 MG TAB PO PRN (21:43)
[2016-09-23] MEDS: CLONAZEPAM 0.5 MG TAB PO PRN (21:43)
[2016-09-24 00:13] VITALS: BP 124/66; PULSE 61; TEMP 36.8; O2SAT 95
[2016-09-24] MEDS: AMPICILLIN/SULBACTAM SOD INJ 3,000 MG in SODIUM CHLORIDE 0.9% 100ML 100 ML IV SCH ×4 (03:52→21:22)
[2016-09-24] MEDS: TOCOPHERYL, DL-ALPHA 100 INTERUNIT CAP PO SCH (07:48)
[2016-09-24] MEDS: PANTOprazole SOD 40 MG TAB PO SCH (07:48)
[2016-09-24] MEDS: MAGNESIUM OXIDE 400 MG TAB PO SCH (07:49)
[2016-09-24] MEDS: POTASSIUM CHLORIDE 20 MEQ TABCR PO SCH (07:49)
[2016-09-24 07:54] VITALS: BP 123/73; PULSE 60; TEMP 36.5; O2SAT 93
[2016-09-24 07:54] LABS: BUN/CREATININE RATIO 6.2 (10-20); CALCIUM 8.6 mg/dl (8.5-10.1); CREATININE 0.52 mg/dl (0.60-1.20); POTASSIUM 3.4 mmol/L (3.5-5.1)
[2016-09-24] MEDS: SERTRALINE HCL 50 MG TAB PO SCH (08:01)
[2016-09-24 08:15] VITALS: O2SAT 93
--- NOTE | 2016-09-24 09:53 | Gastroenterology Progress Note ---
Progress Note Date of Service: Sep 24, 2016 Subjective Pt evaluation today including: conversation w/ patient, physical exam, lab review, review of studies Patient is an 81 yo female hospitalized for an episode of recurrent diverticulitis after failing outpatient oral antibiotic therapy. The patient was feeling well on 09/23, however she reports that she worsened throughout the afternoon. Today she reports she has been having frequent diarrhea. She has made many trips to the bathroom per her reports. She reports associated LLQ abdominal cramping. She is afebrile without evidence of leukocytosis. A C diff study was performed shortly after admission due to complaints of loose stool prior to IV antibiotic therapy and was negative. She does not feel like eating much of her clear liquid diet. Review of Systems Constitutional: No chills, No fever Respiratory: No cough, No shortness of breath Cardiac: No chest pain Abdomen: + diarrhea, + pain, No GI bleeding, No constipation, No nausea, No vomiting Musculoskeletal: No joint pain Psych: No problem reported Skin: No problem reported Medications Current Inpatient Medications Medications (Trade) Dose Ordered Sig/Kelsea Route Start Time Stop Time Status Last Admin Dose Admin Acetaminophen (Tylenol Tab) 650 mg Q4H PRN PO 09/21/16 16:30 10/21/16 16:29 09/23/16 21:43 650 MG Ondansetron HCl 4 mg 4 mg Q6H PRN IV 09/21/16 16:30 10/21/16 16:29 Sodium Chloride 1,000 ml @ 50 mls/hr Q20H IV 09/21/16 16:30 10/21/16 16:29 09/23/16 16:06 50 MLS/HR Ampicillin Sodium/ Sulbactam Sodium/ Sodium Chloride (Unasyn Inj/Nss 100ml) 108 ml @ 200 mls/hr Q6H IV 09/21/16 22:00 10/01/16 16:29 09/24/16 03:52 200 MLS/HR Azathioprine (Imuran Tab) 50 mg HS PO 09/21/16 21:00 10/21/16 20:59 09/23/16 21:42 50 MG Clonazepam (Klonopin Tab) 0.5 mg HS PRN PO 09/21/16 16:30 10/21/16 16:29 09/23/16 21:43 0.5 MG Pantoprazole Sodium (Protonix Tab) 40 mg QAM PO 09/22/16 08:00 10/22/16 08:59 09/24/16 07:48 40 MG Sertraline HCl (Zoloft Tab) 50 mg DAILY PO 09/22/16 08:00 10/22/16 08:59 09/24/16 08:01 50 MG sw-Qobdg-Ryiklfdije Acetate (Vitamin E Cap) 300 interunit QAM PO 09/22/16 08:00 10/22/16 08:59 09/24/16 07:48 300 INTERUNIT Magnesium Oxide (Mag-Ox Tab) 400 mg DAILY PO 09/22/16 08:00 10/22/16 08:59 09/24/16 07:49 400 MG Enoxaparin Sodium (Lovenox Inj) 30 mg Q24H SQ 09/22/16 21:00 10/22/16 20:59 09/23/16 20:28 30 MG Potassium Chloride (Klor-Con Tab) 20 meq QAM PO 09/24/16 08:00 10/24/16 07:59 09/24/16 07:49 20 MEQ Objective Vital Signs Date Time Temp Pulse Resp B/P Pulse Ox O2 Delivery O2 Flow Rate FiO2 09/24/16 08:15 93 Nasal Cannula 2.0 09/24/16 07:54 36.5 60 18 123/73 93 Nasal Cannula 2.0 09/24/16 00:13 36.8 61 18 124/66 95 2.5 09/24/16 00:00 Room Air 09/23/16 20:00 Room Air 09/23/16 16:00 Room Air 09/23/16 15:16 37.0 59 18 124/73 95 Room Air Physical Exam General Appearance: WD/WN, no apparent distress Eyes: normal inspection, PERRL ENT: hearing grossly normal Respiratory/Chest: lungs clear, normal breath sounds Cardiovascular: regular rate, rhythm Abdomen: soft, + abnormal bowel sounds (hyperactive bowel sounds), + tenderness (LLQ) Extremities: non-tender Neurologic/Psych: alert, oriented x 3 Skin: normal color Laboratory Results Last 24 Hours Test 09/24/16 06:40 Sodium Level 144 mmol/L Potassium Level 3.4 mmol/L Chloride Level 107 mmol/L Carbon Dioxide Level 28 mmol/L Anion Gap 9.0 mmol/L Blood Urea Nitrogen 3 mg/dl Creatinine 0.52 mg/dl Est Creatinine Clear Calc Drug Dose 71.0 ml/min Estimated GFR () 103.9 Estimated GFR (Non- 89.6 BUN/Creatinine Ratio 6.2 Random Glucose 82 mg/dl Calcium Level 8.6 mg/dl Magnesium Level 2.0 mg/dl Assessment and Plan Patient is an 81 yo female with recurrent diverticulitis. Though initially improved on IV antibiotic therapy, patient reports worsening LLQ pain & diarrhea since 09/23/16. 1) Continue IV antibiotic therapy at present. 2) Check C diff now. 3) Clear liquid diet at present. 4) If diverticulitis resolves, tentatively plan for outpatient colonoscopy in 6- 8 weeks for further evaluation. Will have our office facilitate scheduling this procedure and contact patient at discharge. 5) Surgical plans pending response to therapy & recurrent symptoms in the future. 6) Supportive care per primary team including IV fluids & antiemetic therapy. Thank you for allowing us to participate in the care of this patient. If you should have any further questions or concerns, do not hesitate to contact us. Agree with CHRISSY Holden as above Abd: Soft, Tender LLQ, ND, +BS States she had 5 BM's today Not feeling as well as earlier in the week No BRBPR Continue current therapy Check stool for C-diff
[2016-09-24] MEDS: SODIUM CHLORIDE 0.9% 1000ML 1,000 ML IV SCH (14:05)
[2016-09-24] MEDS: ACETAMINOPHEN 325 MG TAB PO PRN ×2 (14:06→21:23)
[2016-09-24 15:46] VITALS: BP 126/67; PULSE 54; TEMP 36.7; O2SAT 95
[2016-09-24] MEDS: BOOST BREEZE NUTRITION DRINK 1 BOX PO SCH (17:11)
--- NOTE | 2016-09-24 17:20 | Progress Note ---
Medicine Progress Note Date & Time of Visit: Sep 24, 2016 at 17:17. Subjective Patient seen and examined. Still with diarrhea and occasional abdominal cramping. Nursing staff notes that she has gone through 4 depends underwear today. Objective Last 8 Hrs Date Time Temp Pulse Resp B/P Pulse Ox O2 Delivery O2 Flow Rate FiO2 09/24/16 16:45 Room Air 09/24/16 15:46 36.7 54 18 126/67 95 Physical Exam: General-awake; alert; NAD; sitting in chair Eyes-EOMI; no scleral icterus Neck-no stridor; trachea midline Lungs-CTA bilaterally; no wheezes/crackles Heart-RRR; no m/r/g Abdomen-soft; ND; mildly tender to palpation in laurence-umbilical region; nBS Extremities-no c/c/e; no deformity Neuro-no gross focal deficits Laboratory Results: Last 24 Hours Test 09/24/16 06:40 Sodium Level 144 mmol/L Potassium Level 3.4 mmol/L Chloride Level 107 mmol/L Carbon Dioxide Level 28 mmol/L Anion Gap 9.0 mmol/L Blood Urea Nitrogen 3 mg/dl Creatinine 0.52 mg/dl Est Creatinine Clear Calc Drug Dose 71.0 ml/min Estimated GFR () 103.9 Estimated GFR (Non- 89.6 BUN/Creatinine Ratio 6.2 Random Glucose 82 mg/dl Calcium Level 8.6 mg/dl Magnesium Level 2.0 mg/dl Date/Time Source Procedure Growth Status 09/24/16 13:00 Stool C.difficile Toxin B Gene (PCR) - Final No C. difficile toxin B gene detected Complete Assessment & Plan ACUTE DIVERTICULITIS/COLITIS Failed outpatient antibiotic therapy with PO Cipro/Flagyl CT abd: Findings suggestive of diverticulosis and colitis of sigmoid and descending colon; no abscess, no signs of obstruction Stool is negative for C.diff x2 Continue IVF and Unasyn Continue clear liquid diet GI consulted; plan for outpatient colonoscopy General surgery consulted; no surgical intervention at this time HYPOKALEMIA Likely from GI losses Potassium and magnesium supplementation H/O CVA No residual deficits Not on ASA or Plavix Stable ANXIETY/DEPRESSION Stable Continue Zoloft and Klonopin H/O AUTOIMMUNE HEPATITIS Continue Imuran GERD Continue PPI DVT PROPHYLAXIS Lovenox SQ Consultants: Gastroenterology General surgery Procedures: CT a/p Findings suggesting mild sigmoid and to lesser extent descending colonic diverticulosis/colitis. Moderate generalized wall thickening. No evidence for abscess collection or obstruction. Current Inpatient Medications: Current Inpatient Medications Medications (Trade) Dose Ordered Sig/Kelsea Route Start Time Stop Time Status Last Admin Dose Admin Acetaminophen (Tylenol Tab) 650 mg Q4H PRN PO 09/21/16 16:30 10/21/16 16:29 09/24/16 14:06 650 MG Ondansetron HCl 4 mg 4 mg Q6H PRN IV 09/21/16 16:30 10/21/16 16:29 Sodium Chloride 1,000 ml @ 50 mls/hr Q20H IV 09/21/16 16:30 10/21/16 16:29 09/24/16 14:05 50 MLS/HR Ampicillin Sodium/ Sulbactam Sodium/ Sodium Chloride (Unasyn Inj/Nss 100ml) 108 ml @ 200 mls/hr Q6H IV 09/21/16 22:00 10/01/16 16:29 09/24/16 15:40 200 MLS/HR Azathioprine (Imuran Tab) 50 mg HS PO 09/21/16 21:00 10/21/16 20:59 09/23/16 21:42 50 MG Clonazepam (Klonopin Tab) 0.5 mg HS PRN PO 09/21/16 16:30 10/21/16 16:29 09/23/16 21:43 0.5 MG Pantoprazole Sodium (Protonix Tab) 40 mg QAM PO 09/22/16 08:00 10/22/16 08:59 09/24/16 07:48 40 MG Sertraline HCl (Zoloft Tab) 50 mg DAILY PO 09/22/16 08:00 10/22/16 08:59 09/24/16 08:01 50 MG ii-Cofcu-Mfhoxdwvrq Acetate (Vitamin E Cap) 300 interunit QAM PO 09/22/16 08:00 10/22/16 08:59 09/24/16 07:48 300 INTERUNIT Magnesium Oxide (Mag-Ox Tab) 400 mg DAILY PO 09/22/16 08:00 10/22/16 08:59 09/24/16 07:49 400 MG Enoxaparin Sodium (Lovenox Inj) 30 mg Q24H SQ 09/22/16 21:00 10/22/16 20:59 09/23/16 20:28 30 MG Potassium Chloride (Klor-Con Tab) 20 meq QAM PO 09/24/16 08:00 10/24/16 07:59 09/24/16 07:49 20 MEQ Enteral Nutritional Formula (Boost Breeze Nutritional Drink) 1 box BIDM PO 09/24/16 17:00 10/24/16 16:59 09/24/16 17:11 1 BOX
[2016-09-24] MEDS: CLONAZEPAM 0.5 MG TAB PO PRN (21:22)
[2016-09-24] MEDS: AZATHIOPRINE 50 MG TAB PO SCH (21:22)
[2016-09-24] MEDS: ENOXAPARIN 30 MG/0.3 ML SYR SQ SCH (21:23)
[2016-09-25] MEDS: AMPICILLIN/SULBACTAM SOD INJ 3,000 MG in SODIUM CHLORIDE 0.9% 100ML 100 ML IV SCH ×4 (04:15→21:29)
[2016-09-25] MEDS: ACETAMINOPHEN 325 MG TAB PO PRN ×3 (06:14→21:31)
[2016-09-25 07:03] LABS: BUN/CREATININE RATIO 3.6 (10-20); CALCIUM 8.6 mg/dl (8.5-10.1); CREATININE 0.56 mg/dl (0.60-1.20); MAGNESIUM 2.1 mg/dl (1.8-2.4); POTASSIUM 3.7 mmol/L (3.5-5.1)
[2016-09-25] MEDS: TOCOPHERYL, DL-ALPHA 100 INTERUNIT CAP PO SCH (08:08)
[2016-09-25] MEDS: MAGNESIUM OXIDE 400 MG TAB PO SCH (08:08)
[2016-09-25] MEDS: SERTRALINE HCL 50 MG TAB PO SCH (08:08)
[2016-09-25] MEDS: PANTOprazole SOD 40 MG TAB PO SCH (08:09)
[2016-09-25] MEDS: POTASSIUM CHLORIDE 20 MEQ TABCR PO SCH (08:09)
[2016-09-25] MEDS: BOOST BREEZE NUTRITION DRINK 1 BOX PO SCH ×2 (08:10→17:22)
--- NOTE | 2016-09-25 09:29 | Gastroenterology Progress Note ---
Progress Note Date of Service: Sep 25, 2016 Subjective Pt evaluation today including: conversation w/ patient, physical exam, lab review, review of studies Patient is an 81 yo female hospitalized for diverticulitis which failed outpatient therapy. Despite complaints that her symptoms had worsened on 09/24, she reports that she is feeling significantly better today. She reports she has not had diarrhea since 1 PM on 09/24. C diff studies were negative. She reports she is not experiencing any abdominal pain at present. She is requesting to have her diet advanced. She denies fever, chills, or sweats. She is afebrile without leukocytosis. Review of Systems Constitutional: No problem reported Respiratory: No cough, No shortness of breath Cardiac: No chest pain Abdomen: No GI bleeding, No constipation, No diarrhea, No nausea, No pain, No vomiting Musculoskeletal: No joint pain Skin: No problem reported Medications Current Inpatient Medications Medications (Trade) Dose Ordered Sig/Kelsea Route Start Time Stop Time Status Last Admin Dose Admin Acetaminophen (Tylenol Tab) 650 mg Q4H PRN PO 09/21/16 16:30 10/21/16 16:29 09/25/16 06:14 650 MG Ondansetron HCl 4 mg 4 mg Q6H PRN IV 09/21/16 16:30 10/21/16 16:29 Sodium Chloride 1,000 ml @ 50 mls/hr Q20H IV 09/21/16 16:30 10/21/16 16:29 09/24/16 14:05 50 MLS/HR Ampicillin Sodium/ Sulbactam Sodium/ Sodium Chloride (Unasyn Inj/Nss 100ml) 108 ml @ 200 mls/hr Q6H IV 09/21/16 22:00 10/01/16 16:29 09/25/16 04:15 200 MLS/HR Azathioprine (Imuran Tab) 50 mg HS PO 09/21/16 21:00 10/21/16 20:59 09/24/16 21:22 50 MG Clonazepam (Klonopin Tab) 0.5 mg HS PRN PO 09/21/16 16:30 10/21/16 16:29 09/24/16 21:22 0.5 MG Pantoprazole Sodium (Protonix Tab) 40 mg QAM PO 09/22/16 08:00 10/22/16 08:59 09/25/16 08:09 40 MG Sertraline HCl (Zoloft Tab) 50 mg DAILY PO 09/22/16 08:00 10/22/16 08:59 09/25/16 08:08 50 MG wd-Zftyj-Lsluwtknyx Acetate (Vitamin E Cap) 300 interunit QAM PO 09/22/16 08:00 10/22/16 08:59 09/25/16 08:08 300 INTERUNIT Magnesium Oxide (Mag-Ox Tab) 400 mg DAILY PO 09/22/16 08:00 10/22/16 08:59 09/25/16 08:08 400 MG Enoxaparin Sodium (Lovenox Inj) 30 mg Q24H SQ 09/22/16 21:00 10/22/16 20:59 09/24/16 21:23 30 MG Potassium Chloride (Klor-Con Tab) 20 meq QAM PO 09/24/16 08:00 10/24/16 07:59 09/25/16 08:09 20 MEQ Enteral Nutritional Formula (Boost Breeze Nutritional Drink) 1 box BIDM PO 09/24/16 17:00 10/24/16 16:59 09/25/16 08:10 1 BOX Saccharomyces Boulardii (Florastor Cap) 250 mg DAILY PO 09/26/16 08:00 10/26/16 07:59 Objective Vital Signs Date Time Temp Pulse Resp B/P Pulse Ox O2 Delivery O2 Flow Rate FiO2 09/25/16 00:00 Room Air 09/24/16 20:00 Room Air 09/24/16 16:45 Room Air 09/24/16 15:46 36.7 54 18 126/67 95 Physical Exam General Appearance: WD/WN, no apparent distress Eyes: normal inspection, PERRL Respiratory/Chest: lungs clear, normal breath sounds Cardiovascular: regular rate, rhythm Abdomen: normal bowel sounds, non tender, soft Extremities: non-tender Neurologic/Psych: alert, oriented x 3 Skin: normal color Laboratory Results Last 24 Hours Test 09/25/16 06:20 Sodium Level 143 mmol/L Potassium Level 3.7 mmol/L Chloride Level 107 mmol/L Carbon Dioxide Level 29 mmol/L Anion Gap 7.0 mmol/L Blood Urea Nitrogen 2 mg/dl Creatinine 0.56 mg/dl Est Creatinine Clear Calc Drug Dose 65.9 ml/min Estimated GFR () 101.3 Estimated GFR (Non- 87.4 BUN/Creatinine Ratio 3.6 Random Glucose 76 mg/dl Calcium Level 8.6 mg/dl Magnesium Level 2.1 mg/dl Assessment and Plan Patient is an 81 yo female with recurrent diverticulitis. Patient reports her symptoms have improved today. She is C diff negative. She wishes to have more to eat. 1) Continue IV antibiotic therapy at present. 2) Patient requests for her diet to be advanced. Okay to advance to a light, low -residue/low fiber diet. 3) If diverticulitis resolves, tentatively plan for outpatient colonoscopy in 6- 8 weeks for further evaluation. Will have our office facilitate scheduling this procedure and contact patient at discharge. 4) Surgical plans pending response to therapy & recurrent symptoms in the future. 5) Supportive care per primary team including IV fluids & antiemetic therapy. Likely d/c by 210 on po antibiotics if symptoms continue to improve and diet advancement is tolerated. Thank you for allowing us to participate in the care of this patient. If you should have any further questions or concerns, do not hesitate to contact us. Agree with CHRISSY Holden as above Abd: Soft, NT, ND, +BS Doing better today. Tolerated advanced diet. Continue current therapy Outpatient Colonoscopy If symptoms worsen overnight consider Repeat CT scan of Abd/pelvis.
[2016-09-25] MEDS: SODIUM CHLORIDE 0.9% 1000ML 1,000 ML IV SCH (09:38)
--- NOTE | 2016-09-25 15:36 | Progress Note ---
Medicine Progress Note Date & Time of Visit: Sep 25, 2016 at 15:33. Subjective Patient seen and examined. Feeling much better today. Reported that she had a small, soft BM this morning. Looking forward to advancing her diet. Objective Last 8 Hrs Date Time Temp Pulse Resp B/P Pulse Ox O2 Delivery O2 Flow Rate FiO2 09/25/16 08:00 Room Air Physical Exam: General-awake; alert; NAD; sitting in chair Eyes-EOMI; no scleral icterus Neck-no stridor; trachea midline Lungs-CTA bilaterally; no wheezes/crackles Heart-RRR; no m/r/g Abdomen-soft; NDNT; nBS Extremities-no c/c/e; no deformity Neuro-no gross focal deficits Laboratory Results: Last 24 Hours Test 09/25/16 06:20 Sodium Level 143 mmol/L Potassium Level 3.7 mmol/L Chloride Level 107 mmol/L Carbon Dioxide Level 29 mmol/L Anion Gap 7.0 mmol/L Blood Urea Nitrogen 2 mg/dl Creatinine 0.56 mg/dl Est Creatinine Clear Calc Drug Dose 65.9 ml/min Estimated GFR () 101.3 Estimated GFR (Non- 87.4 BUN/Creatinine Ratio 3.6 Random Glucose 76 mg/dl Calcium Level 8.6 mg/dl Magnesium Level 2.1 mg/dl Assessment & Plan ACUTE DIVERTICULITIS/COLITIS Failed outpatient antibiotic therapy with PO Cipro/Flagyl CT abd: Findings suggestive of diverticulosis and colitis of sigmoid and descending colon; no abscess, no signs of obstruction Stool is negative for C.diff x2 Continue IVF and Unasyn Diet advanced to low fiber today GI consulted; plan for outpatient colonoscopy General surgery consulted; no surgical intervention at this time HYPOKALEMIA Likely from GI losses Potassium and magnesium supplementation H/O CVA No residual deficits Not on ASA or Plavix Stable ANXIETY/DEPRESSION Stable Continue Zoloft and Klonopin H/O AUTOIMMUNE HEPATITIS Continue Imuran GERD Continue PPI DVT PROPHYLAXIS Lovenox SQ Possible discharge tomorrow. Consultants: Gastroenterology General surgery Procedures: CT a/p Findings suggesting mild sigmoid and to lesser extent descending colonic diverticulosis/colitis. Moderate generalized wall thickening. No evidence for abscess collection or obstruction. Current Inpatient Medications: Current Inpatient Medications Medications (Trade) Dose Ordered Sig/Kelsea Route Start Time Stop Time Status Last Admin Dose Admin Acetaminophen (Tylenol Tab) 650 mg Q4H PRN PO 09/21/16 16:30 10/21/16 16:29 09/25/16 06:14 650 MG Ondansetron HCl 4 mg 4 mg Q6H PRN IV 09/21/16 16:30 10/21/16 16:29 Sodium Chloride 1,000 ml @ 50 mls/hr Q20H IV 09/21/16 16:30 10/21/16 16:29 09/25/16 09:38 50 MLS/HR Ampicillin Sodium/ Sulbactam Sodium/ Sodium Chloride (Unasyn Inj/Nss 100ml) 108 ml @ 200 mls/hr Q6H IV 09/21/16 22:00 10/01/16 16:29 09/25/16 09:39 200 MLS/HR Azathioprine (Imuran Tab) 50 mg HS PO 09/21/16 21:00 10/21/16 20:59 09/24/16 21:22 50 MG Clonazepam (Klonopin Tab) 0.5 mg HS PRN PO 09/21/16 16:30 10/21/16 16:29 09/24/16 21:22 0.5 MG Pantoprazole Sodium (Protonix Tab) 40 mg QAM PO 09/22/16 08:00 10/22/16 08:59 09/25/16 08:09 40 MG Sertraline HCl (Zoloft Tab) 50 mg DAILY PO 09/22/16 08:00 10/22/16 08:59 09/25/16 08:08 50 MG hb-Ffkko-Mjvghjtalb Acetate (Vitamin E Cap) 300 interunit QAM PO 09/22/16 08:00 10/22/16 08:59 09/25/16 08:08 300 INTERUNIT Magnesium Oxide (Mag-Ox Tab) 400 mg DAILY PO 09/22/16 08:00 10/22/16 08:59 09/25/16 08:08 400 MG Enoxaparin Sodium (Lovenox Inj) 30 mg Q24H SQ 09/22/16 21:00 10/22/16 20:59 09/24/16 21:23 30 MG Potassium Chloride (Klor-Con Tab) 20 meq QAM PO 09/24/16 08:00 10/24/16 07:59 09/25/16 08:09 20 MEQ Enteral Nutritional Formula (Boost Breeze Nutritional Drink) 1 box BIDM PO 09/24/16 17:00 10/24/16 16:59 09/25/16 08:10 1 BOX Saccharomyces Boulardii (Florastor Cap) 250 mg DAILY PO 09/26/16 08:00 10/26/16 07:59
[2016-09-25 15:50] VITALS: O2SAT 98
[2016-09-25 16:40] VITALS: BP 114/73; PULSE 63; TEMP 36.7; O2SAT 98
[2016-09-25] MEDS: ENOXAPARIN 30 MG/0.3 ML SYR SQ SCH (21:26)
[2016-09-25] MEDS: CLONAZEPAM 0.5 MG TAB PO PRN (21:31)
[2016-09-25] MEDS: AZATHIOPRINE 50 MG TAB PO SCH (21:32)
[2016-09-26] VITALS: BP 111/60; PULSE 66; TEMP 36.7; O2SAT 96
[2016-09-26] MEDS: SODIUM CHLORIDE 0.9% 1000ML 1,000 ML IV SCH (03:50)
[2016-09-26] MEDS: AMPICILLIN/SULBACTAM SOD INJ 3,000 MG in SODIUM CHLORIDE 0.9% 100ML 100 ML IV SCH ×2 (03:52→09:38)
[2016-09-26 07:43] VITALS: BP 115/68; PULSE 54; TEMP 36.8; O2SAT 95
[2016-09-26] MEDS ORDERED: SACCHAROMYCES BOUL (FLORASTOR) 250 MG CAP PO SCH (08:00)
[2016-09-26] MEDS: POTASSIUM CHLORIDE 20 MEQ TABCR PO SCH (08:08)
[2016-09-26] MEDS: SERTRALINE HCL 50 MG TAB PO SCH (08:08)
[2016-09-26] MEDS: BOOST BREEZE NUTRITION DRINK 1 BOX PO SCH (08:08)
[2016-09-26] MEDS: PANTOprazole SOD 40 MG TAB PO SCH (08:08)
[2016-09-26] MEDS: MAGNESIUM OXIDE 400 MG TAB PO SCH (08:08)
[2016-09-26] MEDS: TOCOPHERYL, DL-ALPHA 100 INTERUNIT CAP PO SCH (08:08)
[2016-09-26] MEDS ORDERED: SACC250C3 PO (11:05)
[2016-09-26] MEDS ORDERED: AMOX875T PO (11:05)
--- NOTE | 2016-09-26 11:08 | Discharge Instructions ---
Discharge Instructions Admission Reason for Admission: Diverticulitis Discharge Discharge Diagnosis / Problem: Diverticulitis Discharge Goals Goal(s): Decrease discomfort, Improve disease control Activity Recommendations Activity Limitations: resume your previous activity . Instructions / Follow-Up Instructions / Follow-Up Please follow up with Family Medicine Dr. Mejia on September 30 at 10:30am. You will need to have a colonoscopy done in 6-8 weeks for follow up. You should be contacted regarding an appointment. If you have not by the time of your appointment, please discuss with Dr. Mejia. Please start the prescription for Augmentin this evening and take twice a day until complete. The prescription for Saccharomyces is a probiotic to promote intestinal health. Current Hospital Diet Patient's current hospital diet: Low Fiber Diet Discharge Diet Recommended Diet: Low Fiber Diet Pending Studies Studies pending at discharge: no Medical Emergencies . Who to Call and When: Medical Emergencies: If at any time you feel your situation is an emergency, please call 911 immediately. . Non-Emergent Contact Non-Emergency issues call your: Primary Care Provider . . "Provider Documentation" section prepared by Marci Ariza. VTE Core Measure Inpt VTE Proph given/why not?: Enoxaparin (Lovenox)SQ
[2016-09-26 11:11] VITALS: BP 115/68; PULSE 54; TEMP 36.8; O2SAT 95
[2016-09-26] MEDS ORDERED: BOOST VANILLA PO SCH ×2 (17:00)
--- NOTE | 2016-09-26 17:02 | Discharge Summary ---
Discharge Summary Admission Date: Sep 21, 2016 at 16:19 Discharge Date: Sep 26, 2016 Discharge Disposition: Home Principal Diagnosis: Diverticulitis Procedures: CT a/p Findings suggesting mild sigmoid and to lesser extent descending colonic diverticulosis/colitis. Moderate generalized wall thickening. No evidence for abscess collection or obstruction. Consultations: Gastroenterology General surgery Medication Reconciliation New Medications: Amoxicillin & Pot Clavulanate (Augmentin 875-125 mg) 1 Tab Tab 875 MG PO BID for 10 Days, #19 TAB Saccharomyces Boulardii (Florastor) 250 Mg Cap 250 MG PO DAILY for 30 Days, #30 CAP Continued Medications: Acetaminophen (Tylenol Arthritis Ext Rel) 650 Mg Cplt 2 TAB PO Q8H PRN for Pain, CAP Azathioprine (Imuran) 50 Mg Tab 50 MG PO HS, TAB Clonazepam (Klonopin) 0.5 Mg Tab 0.5 MG PO HS PRN for Sleep, TAB Magnesium Oxide (Mg Supplement (Magnesium) 400 Mg Cap 400 MG PO DAILY Ondasetron Odt (Zofran Odt) 4 Mg Tab 4 MG SL Q6H for Nausea, #10 TAB Pantoprazole (Protonix) 40 Mg Tab 40 MG PO QAM, #30 TAB Potassium (Potassium) 99 Mg Tab 99 MG PO DAILY Sertraline (Zoloft) 50 Mg Tab 50 MG PO DAILY, TAB Vitamin E (Alph-E) 400 Unit Cap 1 CAP PO QAM Admission Information HPI (per Admitting provider): This is an 81 y/o female with PMHx of Autoimmune hepatitis, GERD, Dyslipidemia and other problems as outlined below who presents to the ED c/o diarrhea x 2 weeks. Pt reports that 2 weeks ago she developed diarrhea that is watery but non -bloody. She estimates that she has >10 episodes daily. Her sxs are assoc with mild abd crampy pain relieved with defecation, nausea, decreased urination and lightheadedness/dizziness. Pt was seen in the ED 2 weeks ago for her sxs. CT scan at that time revealed mild diverticulitis and patient was discharged home on 10-day course of Cipro/Flagyl. Pt completed the abx course on 09/14 however her sxs have not resolved. She continues to have copious amounts of diarrhea. Pt currently lives at home with daughter about 20 minutes away. When patient is feeling well she is very active (swims 3 days per week) and independent. Pt denies fever/chills, chest pain, SOB, vomiting, hematochezia, dysuria, LE edema or calf pain. In the ED, vitals are stable. Pt is afebrile with no leukocytosis. K+ 3.3. C.Diff is negative. Abd/pelvis CT + mild sigmoid and descending colon. No abscess. Pt will be admitted for further evaluation and treatment. Physical Exam (per Admitting): General Appearance: WD/WN, no apparent distress, + pertinent finding (Pt is laying in bed with daughter at bedside ) Head: normocephalic, atraumatic Eyes: normal inspection ENT: hearing grossly normal Neck: supple Respiratory/Chest: chest non-tender, lungs clear, normal breath sounds, no respiratory distress Cardiovascular: regular rate, rhythm, no edema, no murmur Abdomen/GI: soft, + tenderness (diffuse; worst in LLQ), + pertinent finding (hyperactive bowel sounds) Back: normal inspection Extremities/Musculoskelatal: normal inspection, no calf tenderness, no pedal edema Neurologic/Psych: alert, normal mood/affect, oriented x 3 Skin: normal color, warm/dry Hospital Course Patient was admitted with acute colitis after failing outpatient treatment with ciprofloxacin/metronidazole. CT a/p on admission was suggestive of diverticulosis and colitis of sigmoid and descending colon; no abscess; no signs of obstruction. GI and General surgery were consulted. Stool was negative for C diff x2. Patient was started on Unasyn and bowel rest. Patient slowly clinically improved. Patient's diet was advanced and tolerated. Unasyn was changed to Augmentin upon discharge to complete a 14 day course of antibiotic. GI plans for outpatient colonoscopy in 6-8 weeks. Labs were notable for hypokalemia, likely from the diarrhea from colitis. This resolved with potassium and magnesium supplementation. Patient was continued on the remainder of her home medications. A probiotic was started and continued upon discharge. Patient deemed stable for discharge with Family Medicine follow up and colonoscopy in 6-8 weeks. PE on discharge: General- awake; alert; NAD; sitting in chair Eyes- EOMI; no scleral icterus Neck- no stridor; trachea midline Lungs- CTA bilaterally; no wheezes/crackles Heart- RRR; no m/r/g Abdomen- soft; NTND; nBS Back- no gross abnormalities Extremities- no c/c/e; no deformity Neuro- no gross focal deficits Skin- no appreciable rash or bruise . Total time spent on discharge = This includes examination of the patient, discharge planning, medication reconciliation, and communication with other providers. Discharge Instructions Discharge Instructions Admission Reason for Admission: Diverticulitis Discharge Discharge Diagnosis / Problem: Diverticulitis Discharge Goals Goal(s): Decrease discomfort, Improve disease control Activity Recommendations Activity Limitations: resume your previous activity . Instructions / Follow-Up Instructions / Follow-Up Please follow up with Family Medicine Dr. Mejia on September 30 at 10:30am. You will need to have a colonoscopy done in 6-8 weeks for follow up. You should be contacted regarding an appointment. If you have not by the time of your appointment, please discuss with Dr. Mejia. Please start the prescription for Augmentin this evening and take twice a day until complete. The prescription for Saccharomyces is a probiotic to promote intestinal health. Current Hospital Diet Patient's current hospital diet: Low Fiber Diet Discharge Diet Recommended Diet: Low Fiber Diet Pending Studies Studies pending at discharge: no Medical Emergencies . Who to Call and When: Medical Emergencies: If at any time you feel your situation is an emergency, please call 911 immediately. . Non-Emergent Contact Non-Emergency issues call your: Primary Care Provider . . "Provider Documentation" section prepared by Marci Ariza. VTE Core Measure Inpt VTE Proph given/why not?: Enoxaparin (Lovenox)SQ Additional Copies To Richa Mejia M.D.
[2016-10-31] MEDS ORDERED: PROB1CAP27 PO (14:59)
[2016-10-31] MEDS ORDERED: MELATAB2 PO (14:59)
[2016-12-26] MEDS ORDERED: SERT50TA PO (10:42)
[2017-01-21] MEDS ORDERED: TRAM-10 PO (08:55)
[2017-05-05] MEDS ORDERED: HYDR-4383 PO (15:35)
[2017-05-05] MEDS ORDERED: MDRDP21 PO (15:35)
== END 2016-09-26 13:15 | disposition home or self-care (01) | DRG 392 ==
LOC: ENRESERVTM → ENRESERVDT → C.EDC 12:12 → C.MS4W 16:19 → UNDOADMIN 18:59 → C.MS4W 18:59
PROVIDERS: ADMIT Internal Medicine; ATTEND Internal Medicine
DX: K57.32 Diverticulitis of large intestine without perforation or abscess without bleeding (principal); K21.9 Gastro-esophageal reflux disease without esophagitis; E78.5 Hyperlipidemia, unspecified; F41.9 Anxiety disorder, unspecified; F32.9 Major depressive disorder, single episode, unspecified; Z86.718 Personal history of other venous thrombosis and embolism; Z87.11 Personal history of peptic ulcer disease; I48.0 Paroxysmal atrial fibrillation; Z96.629 Presence of unspecified artificial elbow joint; Z90.710 Acquired absence of both cervix and uterus; Z90.49 Acquired absence of other specified parts of digestive tract; Z87.891 Personal history of nicotine dependence; Z91.041 Radiographic dye allergy status; Z88.8 Allergy status to other drugs, medicaments and biological substances; Z88.5 Allergy status to narcotic agent; Z88.3 Allergy status to other anti-infective agents; Z79.899 Other long term (current) drug therapy; E87.6 Hypokalemia; Z66 Do not resuscitate; Z96.643 Presence of artificial hip joint, bilateral; K75.4 Autoimmune hepatitis

== ENCOUNTER → 2016-11-14 | Day surgery (SDC) | payer BC, OTHER ==
[2016-10-31 14:59] VITALS: BMI 19.0
[~2016-11-14] VITALS: Ht 167.6 cm; Wt 53.2 kg
[~2016-11-14] MED LIST changes: -CIPR-255 PO; +GABA1CAP4 PO; +HYDR-4383 PO; +HYDR4TAB78 PO; +LIDOCAINE HCL 2% 2 ML VIAL (20MG/ML) ONE; +MAGN1CAP2 PO; -MAGNESIUM PO; +MDRDP21 PO; +MELATAB2 PO; -MISCCAP80 PO; -ONDA4TAB10 SL; +ONDANSETRON INJ 2 MG/ML 2 ML VIAL ONE; +POTA550T4 PO; +POTA99TA PO; -POTASSIUM PO; +PROB1CAP27 PO; +PROPOFOL IV EMULSION 10 MG/ML 20 ML VIAL IV ONE; -SERT25TA PO; +SERT50TA PO; +SODIUM CHLORIDE 0.9% 500ML 500 ML IV ONE; +TPRSR/25 PO; +TRAM-10 PO; +ZLF/100 PO
[2016-11-14 08:14] VITALS: Ht 167.6 cm; Wt 53.2 kg
--- NOTE | 2016-11-14 08:49 | Endo History and Physical ---
History & Physical Date of Service: Nov 14, 2016. Chief Complaint: DIVERTICULITIS Referring Physician: DR. SARAH BECKMAN History of Present Illness 81 yo CF who presents for EGD and colonoscopy secondary to dysphagia and diverticulitis. Past Medical History Anxiety, Reflux, CVA/TIA, Liver Disease, Depression Past Surgical History Hx Cardiac Surgery: No Hx Internal Defibrillator: No Hx Pacemaker: No Hx Abdominal Surgery: Yes (OPEN FEI, OPEN APPY, CARRI/BSO, INGUINAL HERNIA) Hx of Implantable Prosthesis: No Hx Post-Op Nausea and Vomiting: Yes Hx Cancer Surgery: No Hx Thoracic Surgery: Yes Hx Orthopedic: Yes (RT ELBOW REPLACEMENT, RT/LEFT CANDELARIO, LUMBAR SPINAL FUSION, CERVICAL SX) Hx Urinary Tract Surgery: Yes (PELVIC MESH FOR PROLAPSED BLADDER) Family History IBD Social History Smoking Status: Former Smoker Hx Substance Use: No Hx Alcohol Use: Yes (RARELY) Allergies Coded Allergies: Iodinated Diagnostic Agents (Verified Allergy, Intermediate, Rash/Hives, ) Oxycodone (Verified Allergy, Intermediate, PERCOCET-SWELLING OF ARMS, SHOULDERS, 10/31/16) SWELLING OF ARMS/SHOULDERS Corticosteroids (Verified Allergy, Unknown, STERIOD INJECTIONS - FLUSHING AND BLOTCHING REDNESS, 10/31/16) Mepivacaine (Verified Allergy, Unknown, CAN'T REMEMBER?, 10/31/16) Morphine (Verified Allergy, Unknown, RASH, 10/31/16) Tetracyclines (Verified Allergy, Unknown, CAN'T REMEMBER?, 10/31/16) Codeine (Verified Adverse Reaction, Mild, GI UPSET, 10/31/16) Fenoprofen (Verified Adverse Reaction, Unknown, NALFON-HEPATITIS, CAN TAKE MOTRIN, 10/31/16) Current Medications Reported Home Medications Medications Dose Route/Sig Max Daily Dose Days Date Category Melatonin Maximum Strengt (Melatonin) 5 Mg Tab 2 Tab PO HS 30 10/31/16 Reported Trubiotics (Probiotic Product) 1 Cap Cap 1 Cap PO QAM 10/31/16 Reported Magnesium (Magnesium Oxide (Mg Supplement) 400 Mg Cap 400 Mg PO QAM 09/21/16 Reported Potassium 99 Mg Tab 99 Mg PO QAM 09/21/16 Reported Klonopin (Clonazepam) 0.5 Mg Tab 0.5 Mg PO HS PRN 03/20/16 Reported Protonix (Pantoprazole Sodium) 40 Mg Tab 40 Mg PO QAM 03/20/16 Reported Alph-E (Vitamin E) 400 Unit Cap 1 Cap PO QAM 03/20/16 Reported Tylenol Arthritis Ext Rel (Acetaminophen) 650 Mg Cplt 2 Tab PO Q8H PRN 03/20/16 Reported Imuran (Azathioprine) 50 Mg Tab 50 Mg PO HS 03/20/16 Reported Vital Signs Weight (Kilograms): 53.18 Height (Feet): 5 Height (Inches): 6 Date Time Temp Pulse Resp B/P Pulse Ox O2 Delivery O2 Flow Rate FiO2 11/14/16 08:33 36.5 54 18 132/65 96 Room Air Physical Exam General Appearance: WD/WN, no apparent distress Respiratory/Chest: Auscultation: breath sounds normal Cardiovascular: Heart Auscultation: RRR Abdomen: Bowel Sounds: normal Inspection & Palpation: soft, non-distended, no tenderness, guarding & rebound Assessment and Plan Assessment: 81 yo CF who presents for EGD and colonoscopy secondary to dysphagia and diverticulitis. Plan: Proceed with EGD and colonoscopy.
--- NOTE | 2016-11-14 09:41 | Discharge Instructions ---
Endoscopy Patient Instructions Date / Procedure(s) Performed Nov 14, 2016. Colonoscopy, EGD Allergy Information Coded Allergies: Iodinated Diagnostic Agents (Verified Allergy, Intermediate, Rash/Hives, ) Oxycodone (Verified Allergy, Intermediate, PERCOCET-SWELLING OF ARMS, SHOULDERS, 10/31/16) SWELLING OF ARMS/SHOULDERS Corticosteroids (Verified Allergy, Unknown, STERIOD INJECTIONS - FLUSHING AND BLOTCHING REDNESS, 10/31/16) Mepivacaine (Verified Allergy, Unknown, CAN'T REMEMBER?, 10/31/16) Morphine (Verified Allergy, Unknown, RASH, 10/31/16) Tetracyclines (Verified Allergy, Unknown, CAN'T REMEMBER?, 10/31/16) Codeine (Verified Adverse Reaction, Mild, GI UPSET, 10/31/16) Fenoprofen (Verified Adverse Reaction, Unknown, NALFON-HEPATITIS, CAN TAKE MOTRIN, 10/31/16) Discharge Date / Findings Nov 14, 2016. EGD: Normal EGD with Savary dilation to 18mm Colon: Diverticulosis and Internal hemorrhoids Medication Instructions OK to resume all medications today as prescribed Reported Home Medications Medications Dose Route/Sig Max Daily Dose Days Date Category Melatonin Maximum Strengt (Melatonin) 5 Mg Tab 2 Tab PO HS 30 10/31/16 Reported Trubiotics (Probiotic Product) 1 Cap Cap 1 Cap PO QAM 10/31/16 Reported Magnesium (Magnesium Oxide (Mg Supplement) 400 Mg Cap 400 Mg PO QAM 09/21/16 Reported Potassium 99 Mg Tab 99 Mg PO QAM 09/21/16 Reported Klonopin (Clonazepam) 0.5 Mg Tab 0.5 Mg PO HS PRN 03/20/16 Reported Protonix (Pantoprazole Sodium) 40 Mg Tab 40 Mg PO QAM 03/20/16 Reported Alph-E (Vitamin E) 400 Unit Cap 1 Cap PO QAM 03/20/16 Reported Tylenol Arthritis Ext Rel (Acetaminophen) 650 Mg Cplt 2 Tab PO Q8H PRN 03/20/16 Reported Imuran (Azathioprine) 50 Mg Tab 50 Mg PO HS 03/20/16 Reported Provider Instructions Activity Restrictions - No exercising or heavy lifting for 24 hours. - Do not drink alcohol the day of the procedure. - Do not drive a car or operate machinery until the day after the procedure. - Do not make any important decisions or sign important papers in 24 hours after the procedure. Following Day: - Return to full activity which may include returning to work/school. Diet Start your diet with liquids and light foods (jello, soup, juice, toast). Then eat your usual diet if not nauseated. Treatment For Common After Affects For mild abdominal pain, bloating, or excessive gas: - Rest - Eat lightly - Lie on right side Follow-Up Information Follow-up with DR. SARAH BECKMAN as scheduled Anesthesia Information What You Should Know You have had a procedure that required some medicine to reduce anxiety and discomfort. This treatment is called moderate sedation. After receiving the treatment, you may be sleepy, but you will be able to breathe on your own. The effects of the treatment may last for several hours. Follow these instructions along with Activity/Diet recommendations noted above: * Do NOT do anything where dizziness or clumsiness would be dangerous. * Rest quietly at home today, then you can be up and about tomorrow. * Have a responsible person stay with you the rest of today. * You may have had an I.V. today. If so, you may take the dressing off later today. Recommendations Call your doctor if: * Trouble breathing * Continuous vomiting for more than 24 hours * Temperature above 101 degrees * Severe abdominal pain or bloating * Pain not relieved by pain medicine ordered * There is increased drainage or redness from any incision * A large amount of rectal bleeding greater than 2-3 tablespoons. (If you had a polyp/s removed or have hemorrhoids, a small amount of blood - from the rectum is to be expected.) * You have any unanswered questions or concerns. IN THE EVENT OF A SERIOUS EMERGENCY, GO TO THE NEAREST EMERGENCY ROOM Your discharge instructions were prepared by provider Alvin Brock. Patient Instructions Signature Page Tay Shankar Patient (or Guardian) Signature/Date: I have read and understand the instructions given to me by my caregivers. Caregiver/RN/Doctor Signature/Date: The above-named patient and/or guardian has received patient instructions on this date. + Original Patient Signature Page (only) stays with chart. Please make copy for patient.
--- NOTE | 2016-11-14 09:45 | GI REPORT ---
Procedure Date: 11/14/2016 8:15 AM Procedure: Upper GI endoscopy Indications: Dysphagia Medicines: Monitored Anesthesia Care Complications: No immediate complications. Estimated Blood Loss: Estimated blood loss: none. Procedure: Pre-Anesthesia Assessment: - Prior to the procedure, a History and Physical was performed, and patient medications and allergies were reviewed. The patient's tolerance of previous anesthesia was also reviewed. The risks and benefits of the procedure and the sedation options and risks were discussed with the patient. All questions were answered, and informed consent was obtained. Prior Anticoagulants: The patient has taken no previous anticoagulant or antiplatelet agents. ASA Grade Assessment: III - A patient with severe systemic disease. After reviewing the risks and benefits, the patient was deemed in satisfactory condition to undergo the procedure. After obtaining informed consent, the endoscope was passed under direct vision. Throughout the procedure, the patient's blood pressure, pulse, and oxygen saturations were monitored continuously. The Scope was introduced through the mouth, and advanced to the second part of duodenum. The upper GI endoscopy was accomplished without difficulty. The patient tolerated the procedure well. Findings: No endoscopic abnormality was evident in the esophagus to explain the patient's complaint of dysphagia. It was decided, however, to proceed with dilation of the entire esophagus. A guidewire was placed and the scope was withdrawn. Dilation was performed with a Savary dilator with no resistance at 54 Fr. The stomach was normal. The examined duodenum was normal. Impression: - No endoscopic esophageal abnormality to explain patient's dysphagia. Esophagus dilated. Dilated. - Normal stomach. - Normal examined duodenum. - No specimens collected. Recommendation: - Resume previous diet. - Continue present medications. - Return to primary care physician as previously scheduled. Alvin Brock, 11/14/2016 9:44:37 AM This report has been signed electronically. Note Initiated On: 11/14/2016 8:15 AM I attest to the content of the Intraoperative Record and orders documented therein, exceptions below
--- NOTE | 2016-11-14 09:48 | GI REPORT ---
Procedure Date: 11/14/2016 8:13 AM Procedure: Colonoscopy Indications: Follow-up of diverticulitis Medicines: Monitored Anesthesia Care Complications: No immediate complications. Estimated Blood Loss: Estimated blood loss: none. Procedure: Pre-Anesthesia Assessment: - Prior to the procedure, a History and Physical was performed, and patient medications and allergies were reviewed. The patient's tolerance of previous anesthesia was also reviewed. The risks and benefits of the procedure and the sedation options and risks were discussed with the patient. All questions were answered, and informed consent was obtained. Prior Anticoagulants: The patient has taken no previous anticoagulant or antiplatelet agents. ASA Grade Assessment: III - A patient with severe systemic disease. After reviewing the risks and benefits, the patient was deemed in satisfactory condition to undergo the procedure. After I obtained informed consent, the scope was passed under direct vision. Throughout the procedure, the patient's blood pressure, pulse, and oxygen saturations were monitored continuously. The Scope was introduced through the anus and advanced to the terminal ileum. The colonoscopy was performed without difficulty. The patient tolerated the procedure well. The quality of the bowel preparation was good. The terminal ileum, ileocecal valve, appendiceal orifice, and rectum were photographed. Findings: Multiple small-mouthed diverticula were found in the sigmoid colon. Non-bleeding internal hemorrhoids were found during retroflexion. The hemorrhoids were small. Impression: - Diverticulosis in the sigmoid colon. - Non-bleeding internal hemorrhoids. - No specimens collected. Recommendation: - Resume previous diet. - Continue present medications. - No repeat colonoscopy due to age and the absence of advanced adenomas. - Return to primary care physician as previously scheduled. Alvin Brock, 11/14/2016 9:47:39 AM This report has been signed electronically. Note Initiated On: 11/14/2016 8:13 AM I attest to the content of the Intraoperative Record and orders documented therein, exceptions below
[2016-11-14 10:12] VITALS: BP 143/82; PULSE 56; O2SAT 98
--- NOTE | 2016-11-14 10:24 | Anesthesiology Progress Note ---
Anesthesia Post Op Note Date & Time Nov 14, 2016 at 10:25 Vital Signs Pain Intensity: 0 Vital Signs Past 12 Hours Date Time Temp Pulse Resp B/P Pulse Ox O2 Delivery O2 Flow Rate FiO2 11/14/16 10:12 56 16 143/82 98 Room Air 11/14/16 09:57 57 16 133/71 98 Room Air 11/14/16 09:42 60 16 128/64 96 Room Air 11/14/16 08:33 36.5 54 18 132/65 96 Room Air Notes Mental Status: alert / awake / arousable, participated in evaluation Pt Amnestic to Procedure: Yes Nausea / Vomiting: adequately controlled Pain: adequately controlled Airway Patency, RR, SpO2: stable & adequate BP & HR: stable & adequate Hydration State: stable & adequate Anesthetic Complications: no major complications apparent Pt doing very well.
== END | disposition home or self-care (01) ==
LOC: C.GI 07:51
PROVIDERS: ATTEND Internal Medicine
DX: R13.10 Dysphagia, unspecified (principal); K57.30 Diverticulosis of large intestine without perforation or abscess without bleeding; K21.9 Gastro-esophageal reflux disease without esophagitis; K64.8 Other hemorrhoids; M19.90 Unspecified osteoarthritis, unspecified site; Z86.73 Personal history of transient ischemic attack (TIA), and cerebral infarction without residual deficits; F32.9 Major depressive disorder, single episode, unspecified; Z98.890 Other specified postprocedural states; Z90.49 Acquired absence of other specified parts of digestive tract; Z83.79 Family history of other diseases of the digestive system; Z88.5 Allergy status to narcotic agent; Z88.8 Allergy status to other drugs, medicaments and biological substances

== ENCOUNTER 2017-01-05 05:22 | Observation (INO) | payer BC, OTHER ==
[2016-12-26 10:44] VITALS: BMI 19.0
--- NOTE | 2016-12-26 11:51 | PAT Medication Instructions ---
Service Date December 26, 2016. Current Home Medication List Acetaminophen (Tylenol Arthritis Ext Rel), 1,300 MG PO Q8H PRN for Pain Azathioprine (Imuran), 50 MG PO HS Clonazepam (Klonopin), 0.5 MG PO HS Magnesium Oxide (Mg Supplement (Magnesium), 400 MG PO QAM Melatonin (Melatonin Maximum Strengt), 5 MG PO HS Pantoprazole (Protonix), 40 MG PO QAM Potassium (Potassium), 99 MG PO QAM Probiotic Product (Trubiotics), 1 CAP PO QAM Sertraline (Zoloft), 50 MG PO NOON Medication Instructions For Your Scheduled Surgery Azathioprine (Imuran), 50 MG PO HS (let Dr. Brock know that you are getting back surgery and that you want to continue- make sure he approves) - Hold the following medications the morning of surgery: Probiotic Product (Trubiotics), 1 CAP PO QAM Potassium (Potassium), 99 MG PO QAM Magnesium Oxide (Mg Supplement (Magnesium), 400 MG PO QAM - Take the following medications the morning of surgery with a sip of water: Pantoprazole (Protonix), 40 MG PO QAM Acetaminophen (Tylenol Arthritis Ext Rel), 1,300 MG PO Q8H PRN for Pain (if needed) - Take the following medications as scheduled the night before surgery: Sertraline (Zoloft), 50 MG PO NOON Melatonin (Melatonin Maximum Strengt), 5 MG PO HS Acetaminophen (Tylenol Arthritis Ext Rel), 1,300 MG PO Q8H PRN for Pain Clonazepam (Klonopin), 0.5 MG PO HS If you have any questions please call us at [phone] or [phone] ( Jeannie) or [phone]
--- NOTE | 2016-12-26 12:20 | DIAGNOSTIC IMAGING REPORT ---
CHEST PREADMISSION(PA/LAT) CLINICAL HISTORY: PAT preoperative evaluation COMPARISON STUDY: 08/27/2015 FINDINGS: The bones soft tissues and hemidiaphragms are normal. The cardiomediastinal silhouette is normal. The lungs are clear. The pulmonary vasculature is normal. Epidural catheter in position. Bilateral postoperative changes to low cervical as well as distal right humeral region. IMPRESSION: Negative chest. Electronically signed by: Sridhar Kirk M.D. 12/26/2016 12:18 PM Dictated Date/Time: 12/26/2016 12:16 PM
[2016-12-26 12:44] LABS: URINE APPEARANCE CLEAR (CLEAR); URINE BILIRUBIN NEG (NEG); URINE COLOR DK YELLOW; URINE NITRITE NEG (NEG); UROBILINOGEN NEG (NEG)
[2016-12-26 12:52] LABS: MANUAL MICROSCOPIC REQUIRED? NO; REVIEW REQ? NO
[2016-12-26 13:04] LABS: BASO % 0.8 %; BASO ABS # 0.04 K/uL (0-0.2); COMPLETE YES; HEMATOCRIT 36.7 % (37-47); LYMPH % 25.1 %; LYMPH ABS # 1.26 K/uL (1.2-3.4); MEAN CELL VOLUME 97.6 fL (80-100); MEAN CORPUSCULAR HEMOGLOBIN 32.2 pg (25-34); MONO % 14.1 %; PLATELET COUNT 254 K/uL (130-400); RED BLOOD COUNT 3.76 M/uL (4.2-5.4); WHITE BLOOD COUNT 5.02 K/uL (4.8-10.8)
[2016-12-26 14:29] LABS: BUN/CREATININE RATIO 18.7 (10-20); CALCIUM 9.2 mg/dl (8.5-10.1); CREATININE 0.62 mg/dl (0.60-1.20)
[~2017-01-05] VITALS: Ht 167.6 cm; Wt 55.7 kg
[2017-01-05] VITALS (9 sets, daily range): BP systolic 93–138; BP diastolic 53–75; PULSE 66–87; TEMP 36.3–36.7; O2SAT 95–98; Ht 167.6 cm; Wt 55.7 kg
[~2017-01-05 05:22] MED LIST changes: -GABA1CAP4 PO; -HYDR-4383 PO; -HYDR4TAB78 PO; -LIDOCAINE HCL 2% 2 ML VIAL (20MG/ML) ONE; -MDRDP21 PO; -ONDANSETRON INJ 2 MG/ML 2 ML VIAL ONE; -POTA550T4 PO; -PROPOFOL IV EMULSION 10 MG/ML 20 ML VIAL IV ONE; -SODIUM CHLORIDE 0.9% 500ML 500 ML IV ONE; -TPRSR/25 PO; -TRAM-10 PO; -VITA400C28 PO; -ZLF/100 PO
[2017-01-05] MEDS ORDERED: LACTATED RINGER'S 1000ML 1,000 ML IV SCH (06:00)
[2017-01-05] MEDS ORDERED: CEFAZOLIN 2000 MG/60 ML D5W 60 ML IV SCH (06:00)
[2017-01-05] MEDS ORDERED: NSS 1000ML IV SCH (06:00)
[2017-01-05] MEDS ORDERED: FENTANYL CITRATE INJ 50 MCG/1 ML 2 ML VIAL ONE (07:00)
[2017-01-05] MEDS ORDERED: MIDAZOLAM HCL 1 MG/ML 2ML VIAL ONE (07:01)
[2017-01-05] MEDS ORDERED: THROMBIN FOR SOLN 20000 UNIT KIT ONE (07:08)
[2017-01-05] MEDS ORDERED: GELATIN SPONGE SZ 100 ONE (07:08)
[2017-01-05] MEDS ORDERED: BUPIVACAINE/EPINEPHRINE 0.5% MPF 1:200,000 30 ML VIAL ONE (07:08)
[2017-01-05] MEDS ORDERED: BACITRACIN 50000 UNIT VIAL ONE (07:09)
[2017-01-05] MEDS ORDERED: VANCOMYCIN HCL 1000MG/20ML VIAL ONE (07:09)
--- NOTE | 2017-01-05 07:16 | History and Physical ---
History & Physical Date January 05, 2017. Chief Complaint back and Leg pain; spinal stenosis History of Present Illness The patient is a 81 year old female with complaints of Past Medical/Surgical History Medical Problems: (1) Anxiety (2) Deep venous thrombosis (3) Depression (4) Diverticulosis (5) Dyslipidemia (6) GERD (gastroesophageal reflux disease) (7) h/o Schatski's ring (8) H/O urticaria (9) H/O: CVA (cerebrovascular accident) (10) Hiatal hernia (11) History of peptic ulcer disease (12) Paroxysmal atrial fibrillation Surgical Problems: (1) H/O blepharoplasty (2) H/o cervical laminectomy (3) H/O elbow replacement (4) H/O esophagogastroduodenoscopy (5) H/O esophagogastroduodenoscopy (6) H/o excision radial head (7) H/O hernia repair (8) H/o paravaginal defect repair (9) H/o sacral nerve stimulator implant (10) H/o vesicourethropexy (11) H/O: hysterectomy (12) Hx of cholecystectomy (13) S/P appendectomy (14) S/P cataract surgery (15) S/P hip replacement Allergies Coded Allergies: Iodinated Diagnostic Agents (Verified Allergy, Intermediate, Rash/Hives, ) Oxycodone (Verified Allergy, Intermediate, PERCOCET-ITCHING OF ARMS, SHOULDERS, 01/05/17) Chlorhexidine (Unverified Allergy, Unknown, RASH, 01/05/17) Corticosteroids (Verified Allergy, Unknown, STERIOD INJECTIONS - FLUSHING AND BLOTCHING REDNESS, 01/05/17) Dipyridamole (Verified Allergy, Unknown, reaction unknown, 01/05/17) Mepivacaine (Verified Allergy, Unknown, CAN'T REMEMBER?, 12/26/16) Morphine (Verified Allergy, Unknown, RASH, 01/05/17) Codeine (Verified Adverse Reaction, Mild, GI UPSET, 01/05/17) Fenoprofen (Verified Adverse Reaction, Unknown, NALFON-HEPATITIS, CAN TAKE MOTRIN, 01/05/17) Home Medications Scheduled Azathioprine (Imuran), 50 MG PO HS Clonazepam (Klonopin), 0.5 MG PO HS Magnesium Oxide (Mg Supplement (Magnesium), 400 MG PO QAM Melatonin (Melatonin Maximum Strengt), 5 MG PO HS Pantoprazole (Protonix), 40 MG PO QAM Potassium (Potassium), 99 MG PO QAM Probiotic Product (Trubiotics), 1 CAP PO QAM Sertraline (Zoloft), 50 MG PO PM Scheduled PRN Acetaminophen (Tylenol Arthritis Ext Rel), 1,300 MG PO Q8H PRN for Pain Physical Examination Skin: warm/dry Eyes: normal inspection ENT: normal ENT inspection Head: normocephalic Neck: no adenopathy Respiratory/Chest: lungs clear Back: + pertinent finding (decreased range, pain with flexion , extension) Diagnosis Spinal stenosis and instability ASA Classification: ASA Class III Plan of Treatment decomprssion Laminectomy L3-S1, possible instrumentation L4-5
[2017-01-05] MEDS ORDERED: HYDROmorphone INJ 1 MG/ML SYR IV PRN (07:30)
[2017-01-05] MEDS ORDERED: EpHEDrine SULFATE INJ 50 MG/ML AMP IV PRN (07:30)
[2017-01-05] MEDS ORDERED: ATROPINE SULFATE 0.1 MG/ML 5ML SYR IV PRN (07:30)
[2017-01-05] MEDS ORDERED: ONDANSETRON INJ 2 MG/ML 2 ML VIAL IV PRN ×2 (07:30→09:30)
[2017-01-05] MEDS ORDERED: CHLOROPROCAINE HCL 3% 20 ML VIAL INJ PRN (07:45)
[2017-01-05] MEDS ORDERED: PROPOFOL IV EMULSION 10 MG/ML 20 ML VIAL IV ONE (08:03)
[2017-01-05] MEDS ORDERED: DEXAMETHASONE SOD INJ 4 MG/ML VIAL ONE (08:03)
[2017-01-05] MEDS ORDERED: GLYCOPYRROLATE INJ 0.2 MG/ML VIAL ONE (08:03)
[2017-01-05] MEDS ORDERED: ROCURONIUM BROMIDE 10 MG/ML 5 ML VIAL ONE (08:03)
[2017-01-05] MEDS ORDERED: EpHEDrine SULFATE INJ 50 MG/ML AMP ONE (08:03)
[2017-01-05] MEDS ORDERED: ONDANSETRON INJ 2 MG/ML 2 ML VIAL ONE (08:03)
[2017-01-05] MEDS ORDERED: NEOSTIGMINE METHYLSULFATE 5 MG/5 ML SYR ONE (08:03)
[2017-01-05] MEDS ORDERED: BACITRACIN 50,000 UNITS IR ONE (09:15)
[2017-01-05] MEDS ORDERED: VANCOMYCIN 1 GM TOP ONE (09:16)
--- NOTE | 2017-01-05 09:26 | [facility] Post Operative Brief Note ---
Immediate Operative Summary Operative Date January 05, 2017. Pre-Operative Diagnosis Spinal Stenosis and Instability Post-Operative Diagnosis Spinal Stenosis and Instability Procedure(s) Performed L2-L5 Laminectomy and Fusion without Instrumentation Surgeon Dr. Peralta Knit Tubing Dyer Surgeon(s) AKSHAT Mullins Estimated Blood Loss 150ml Findings severe stenosis Specimens none per surgeon Complication(s) None Disposition Recovery Room / PACU
[2017-01-05] MEDS ORDERED: HYDROmorphone INJ 2 MG/ML SYR/VIAL IV PRN (09:30)
[2017-01-05] MEDS ORDERED: LORAZEPAM INJ 1 MG in SYRINGE 0.5 ML IV PRN (09:30)
[2017-01-05] MEDS ORDERED: LORAZEPAM 1 MG TAB PO PRN (09:30)
[2017-01-05] MEDS ORDERED: METOCLOPRAMIDE HCL INJ 5 MG/ML 2 ML VIAL IV PRN (09:30)
[2017-01-05] MEDS ORDERED: MAGNESIUM HYDROXIDE SUSP 30 ML UDC PO PRN (09:30)
[2017-01-05] MEDS ORDERED: ACETAMINOPHEN 325 MG TAB PO PRN (09:30)
[2017-01-05] MEDS ORDERED: PROMETHAZINE HCL INJ 12.5 MG in SODIUM CHLORIDE 0.9% 50ML 50 ML IV PRN (09:30)
[2017-01-05] MEDS: FENTANYL CITRATE INJ 50 MCG/1 ML 2 ML VIAL IV PRN ×3 (09:50→10:03)
--- NOTE | 2017-01-05 10:08 | DIAGNOSTIC IMAGING REPORT ---
LUMBAR SPINE, INTRAOPERATIVE FLUOROSCOPY HISTORY: L3-S1 laminectomy. FLUOROSCOPY TIME: 2 seconds. FINDINGS: Intraoperative fluoroscopy was provided for the lumbar spine. A single fluoroscopic spot image demonstrates surgical instruments posterior to the L3 and L4 levels. IMPRESSION: Fluoroscopy provided for a L3-S1 laminectomy. Electronically signed by: Alvaro De La Cruz M.D. 01/05/2017 10:06 AM Dictated Date/Time: 01/05/2017 10:06 AM
--- NOTE | 2017-01-05 10:14 | Anesthesiology Progress Note ---
Anesthesia Post Op Note Date & Time January 05, 2017 at 10:12 Vital Signs Pain Intensity: 5 Vital Signs Past 12 Hours Date Time Temp Pulse Resp B/P Pulse Ox O2 Delivery O2 Flow Rate FiO2 01/05/17 09:56 70 23 133/68 97 01/05/17 09:56 70 23 01/05/17 09:51 83 22 136/82 96 01/05/17 09:51 84 22 01/05/17 09:46 97 28 01/05/17 09:46 96 28 95 01/05/17 09:41 74 22 01/05/17 09:41 74 22 131/70 97 01/05/17 09:36 72 10 01/05/17 09:36 72 10 156/76 97 01/05/17 09:32 126/71 01/05/17 09:31 73 14 97 01/05/17 09:31 74 14 01/05/17 09:27 145/74 01/05/17 09:26 74 99 01/05/17 09:26 74 01/05/17 09:26 36.8 76 16 145/74 99 Mask 10 01/05/17 05:55 36.7 66 20 97 Room Air Notes Mental Status: alert / awake / arousable, participated in evaluation Pt Amnestic to Procedure: Yes Nausea / Vomiting: adequately controlled Pain: adequately controlled Airway Patency, RR, SpO2: stable & adequate BP & HR: stable & adequate Hydration State: stable & adequate Anesthetic Complications: no major complications apparent Patient has redness on face where breathing tube and eyes were taped but per PACU nurse it is fading in intensity. FAMILY LIFE COUNSELOR to report this to her RN on the floor for continued monitoring and also to alert family members that this is likely a mild reaction to the adhesive in the tape commonly used in the operating room.
[2017-01-05] MEDS: HYDROmorphone INJ 1 MG/ML SYR IV PRN ×2 (11:04→18:32)
[2017-01-05] MEDS: SODIUM CHLORIDE 0.9% 1000ML 1,000 ML IV SCH ×2 (11:04→21:11)
--- NOTE | 2017-01-05 12:24 | OPERATIVE REPORT ---
DATE OF OPERATION: 01/05/2017 PREOPERATIVE DIAGNOSIS: Severe stenosis lumbar spine L2-L5. POSTOPERATIVE DIAGNOSIS: Same. PROCEDURE: Include a laminectomy L2-L5, posterior lateral fusion L2-L5 with bone graft which is a combination of allograft and autograft. There was instrumentation used in the completion of her fusion. SURGEON: Dr. Peralta. [employer] CLEANER: Foreign Williamson PA-C. COMPLICATIONS: Zero. BLOOD LOSS: 150 mL. ANESTHETIC: General. COUNTS: Sponge and needle count correct at the close of the procedure. DESCRIPTION OF PROCEDURE: The patient was taken to the operating room and general intubated anesthetic provided to the patient, placed prone, scrubbed, prepped and draped sterile. We made a skin incision, fascial incision down to the lamina putting in deep self-retaining retractor. We then decompressed the neural elements very carefully starting at the L4-5 intervals with essentially a laminectomy of L5, L4, L3 and L2 4-level of the lumbar spine. We carefully decompressed each and every nerve root at L2, L3, L4 and L5 on the right and on the left. We did not have any apparent nerve injury or injury to the dural structures. Blood loss completely controlled. We then assessed stability. She has a low grade spondylolisthesis in L3 and L4, low grade in L4 and L5. Radiographically, I felt that she had previously stable spine. I did not sense any gross instability at the time of surgery which did not require any rigid internal fixation. We then bone grafted over the transverse processes at L2, L3, L4 and L5 completing the posterolateral fusion. We irrigated thoroughly with approximately 500 mL of saline. Closed fascia to fascia over Hemovac drain over vancomycin powder with 1 Vicryl, 2-0 on the subcuticular layer, 3-0 nylon on the skin, sterile dressing applied. The patient returned to PACU improved, stable. There were no complications. I attest to the content of the Intraoperative Record and any orders documented therein. Any exceptions are noted below. ADDENDUM: Foreign dempsey PA-C assisted on the entire 2-hour case. He was instrumental in positioning, nerve root protection, protection of neural elements, blood control throughout the entire procedure. [facility]NE[facility] HEALTHMalika
[2017-01-05] MEDS ORDERED: IV FLUIDS COMPLETED PRN (12:45)
[2017-01-05] MEDS: TRAMADOL HCL 50 MG TAB PO PRN (13:53)
[2017-01-05] MEDS: ACETAMINOPHEN IV 1,000 MG in EMPTY BAG 0 ML IV SCH (14:18)
[2017-01-05] MEDS: CEFAZOLIN IV 1,000 MG in DEXTROSE 5% 50ML 50 ML IV SCH (16:23)
--- NOTE | 2017-01-05 20:14 | Medical Consult ---
Consultation Date of Consultation: January 05, 2017. Attending Physician: Kamran Peralta DO Reason for Consultation: Medical management History of Present Illness 81 y/o F who was admitted earlier today s/p lumbar decompression/fusion. Pt is doing well post-op. She does have a small amount of back pain, but not much right now. She tolerated her lunch without issue, although she did say her appetite was a bit low. No SOB, chest pain. Pt denies fever, abd pain, n/v/c/d , LE pain or swelling. ROS as noted above, otherwise neg. Past Medical/Surgical History Medical Problems: (1) Abdominal pain Status: Acute (2) Acute diverticulitis Status: Acute (3) Dehydration Status: Acute (4) Diverticulitis Status: Acute (5) Enteritis Status: Acute (6) Nausea Status: Acute (7) Weakness Status: Acute Hx of CVA: epiglottis closing deficit only Hx of DVT--pt can tell me no details about this other than she is not on anticoag Afib--not on anticoag Anx/depression GERD Family History Family history was reviewed; no changes noted. Social History Smoking Status: Former Smoker Drug Use: none Marital Status: Housing Status: lives with family Occupation Status: retired Allergies Coded Allergies: Iodinated Diagnostic Agents (Verified Allergy, Intermediate, Rash/Hives, ) Oxycodone (Verified Allergy, Intermediate, PERCOCET-ITCHING OF ARMS, SHOULDERS, 01/05/17) Chlorhexidine (Unverified Allergy, Unknown, RASH, 01/05/17) Corticosteroids (Verified Allergy, Unknown, STERIOD INJECTIONS - FLUSHING AND BLOTCHING REDNESS, 01/05/17) Dipyridamole (Verified Allergy, Unknown, reaction unknown, 01/05/17) Mepivacaine (Verified Allergy, Unknown, CAN'T REMEMBER?, 12/26/16) Morphine (Verified Allergy, Unknown, RASH, 01/05/17) Codeine (Verified Adverse Reaction, Mild, GI UPSET, 01/05/17) Fenoprofen (Verified Adverse Reaction, Unknown, NALFON-HEPATITIS, CAN TAKE MOTRIN, 01/05/17) Current Inpatient Medications Current Inpatient Medications Medications (Trade) Dose Ordered Sig/Kelsea Route Start Time Stop Time Status Last Admin Dose Admin Chloroprocaine HCl (Nesacaine-Mpf 3%) 20 ml UD PRN INJ 01/05/17 07:45 02/04/17 07:44 Acetaminophen (Tylenol Tab) 650 mg Q6H PRN PO 01/05/17 09:30 02/04/17 09:29 Future Hold Tramadol HCl (Ultram Tab) 50 mg Q4H PRN PO 01/05/17 09:30 02/04/17 09:29 01/05/17 13:53 50 MG Hydromorphone HCl (Dilaudid Inj) 1 mg Q3H PRN IV 01/05/17 09:30 01/19/17 09:29 01/05/17 18:32 1 MG Hydromorphone HCl 1.5 mg 1.5 mg Q3H PRN IV 01/05/17 09:30 01/19/17 09:29 Promethazine HCl/ Sodium Chloride (Phenergan Inj/ Nss 50ml) 50.5 ml @ 202 mls/hr Q6H PRN IV 01/05/17 09:30 02/04/17 09:29 Ondansetron HCl (Zofran Inj) 4 mg Q6H PRN IV 01/05/17 09:30 02/04/17 09:29 Metoclopramide HCl (Reglan Inj) 10 mg Q6H PRN IV 01/05/17 09:30 02/04/17 09:29 Lorazepam 1 mg 1 mg Q6H PRN PO 01/05/17 09:30 02/04/17 09:29 Lorazepam/Syringe (Ativan Inj/ Syringe) 1 ml @ 1 mls/min Q6H PRN IV 01/05/17 09:30 02/04/17 09:29 Polyethylene (Miralax Powder Packet) 17 gm DAILY PO 01/06/17 09:00 02/05/17 08:59 Bisacodyl (Dulcolax Tab) 5 mg DAILY PRN PO 01/06/17 06:00 02/05/17 05:59 Bisacodyl (Dulcolax Supp) 10 mg DAILY PRN OK 01/06/17 06:00 02/05/17 05:59 Magnesium Hydroxide (Milk Of Magnesia Susp) 30 ml DAILY PRN PO 01/05/17 09:30 02/04/17 09:29 Diphenhydramine HCl 25 mg 25 mg Q6H PRN PO 01/05/17 09:30 02/04/17 09:29 Cefazolin Sodium 1000 mg/Dextrose 55 ml @ 100 mls/hr Q8H IV 01/05/17 16:00 01/06/17 08:32 01/05/17 16:23 100 MLS/HR Sodium Chloride (Nss 1000ml) 1,000 ml @ 80 mls/hr [id number] IV 01/05/17 09:25 02/04/17 09:24 01/05/17 11:04 80 MLS/HR Azathioprine (Imuran Tab) 50 mg HS PO 01/05/17 21:00 02/04/17 20:59 Clonazepam (Klonopin Tab) 0.5 mg HS PO 01/05/17 21:00 02/04/17 20:59 Pantoprazole Sodium (Protonix Tab) 40 mg QAM PO 01/06/17 09:00 02/05/17 08:59 Sertraline HCl (Zoloft Tab) 50 mg PM PO 01/05/17 21:00 02/04/17 20:59 Magnesium Oxide (Mag-Ox Tab) 400 mg QAM PO 01/06/17 09:00 02/05/17 08:59 Miscellaneous 1 ea 1 ea PRN PRN N/A 01/05/17 12:45 01/05/18 12:44 Acetaminophen/ Empty Bag (Ofirmev Iv/ Empty Iv Bag 100ml) 100 ml @ 400 mls/hr Q8 IV 01/05/17 14:00 02/04/17 13:59 01/05/17 14:18 400 MLS/HR Physical Exam Date Time Temp Pulse Resp B/P Pulse Ox O2 Delivery O2 Flow Rate FiO2 01/05/17 19:10 36.7 76 16 103/57 95 Nasal Cannula 4.0 01/05/17 16:20 Nasal Cannula 4.0 01/05/17 15:47 36.4 71 16 117/75 97 Nasal Cannula 4.0 01/05/17 13:43 36.3 75 17 99/63 95 Nasal Cannula 4.0 01/05/17 12:24 81 18 120/68 97 Nasal Cannula 4.0 01/05/17 11:30 36.5 87 17 137/73 97 Nasal Cannula 4.0 01/05/17 11:00 71 16 128/73 98 Nasal Cannula 4.0 01/05/17 10:30 97 Nasal Cannula 4.0 01/05/17 10:30 Nasal Cannula 4.0 01/05/17 10:30 36.5 76 16 138/53 97 Nasal Cannula 4.0 01/05/17 10:20 36.6 75 16 127/67 97 Nasal Cannula 4 01/05/17 10:17 70 11 97 01/05/17 10:17 70 11 01/05/17 10:16 109/56 01/05/17 10:12 64 19 97 01/05/17 10:12 64 19 01/05/17 10:11 135/64 01/05/17 10:07 81 17 01/05/17 10:07 81 17 97 01/05/17 10:06 126/67 01/05/17 10:02 71 19 01/05/17 10:02 71 19 99 01/05/17 10:01 146/67 01/05/17 09:57 70 19 97 01/05/17 09:57 71 19 01/05/17 09:56 70 23 133/68 97 01/05/17 09:56 70 23 01/05/17 09:51 83 22 136/82 96 01/05/17 09:51 84 22 01/05/17 09:46 97 28 01/05/17 09:46 96 28 95 01/05/17 09:41 74 22 01/05/17 09:41 74 22 131/70 97 01/05/17 09:36 72 10 01/05/17 09:36 72 10 156/76 97 01/05/17 09:32 126/71 01/05/17 09:31 73 14 97 01/05/17 09:31 74 14 01/05/17 09:27 145/74 01/05/17 09:26 74 99 01/05/17 09:26 74 01/05/17 09:26 36.8 76 16 145/74 99 Mask 10 01/05/17 05:55 36.7 66 20 97 Room Air General Appearance: WD/WN, no apparent distress Head: normocephalic, atraumatic Respiratory/Chest: normal breath sounds, no respiratory distress Cardiovascular: regular rate, rhythm, no edema Abdomen/GI: non tender, soft Extremities/Musculoskelatal: no calf tenderness, no pedal edema Neurologic/Psych: alert, normal mood/affect, oriented x 3 Skin: normal color, warm/dry Laboratory Results Last 24 Hours Test 01/05/17 11:42 Bedside Glucose 161 mg/dl Assessment & Plan 81 y/o F who was admitted earlier today s/p lumbar decompression and fusion. Back pain: decompression and fusion with Dr. Peralta on 01/05 DVT proph and diet as per ortho Afib: stable, does not take any medication or anticoag for this Hx of CVA: 2012 Only deficit is some swallowing issues related to her epiglottis no longer closing fully Hx of DVT: pt cannot remember any details about this Anx/depression: continue zoloft Other: Full code DVT proph and diet as per ortho
[2017-01-05] MEDS ORDERED: NON-FORMULARY MEDICATION (Melatonin (Melatonin Maximum Strengt) 5 MG) PO SCH (21:00)
[2017-01-05] MEDS: CLONAZEPAM 0.5 MG TAB PO SCH (21:08)
[2017-01-05] MEDS: AZATHIOPRINE 50 MG TAB PO SCH (21:08)
[2017-01-05] MEDS: SERTRALINE HCL 50 MG TAB PO SCH (21:09)
[2017-01-05] MEDS ORDERED: NURSING VERBAL MED ORDER ONE (23:30)
[2017-01-06] MEDS: CEFAZOLIN IV 1,000 MG in DEXTROSE 5% 50ML 50 ML IV SCH ×2 (00:37→07:39)
[2017-01-06 03:17] VITALS: BP 91/53; PULSE 66; TEMP 37.1; O2SAT 99
[2017-01-06] MEDS: ACETAMINOPHEN IV 1,000 MG in EMPTY BAG 0 ML IV SCH ×4 (05:52→21:21)
[2017-01-06] MEDS ORDERED: BISACODYL 5 MG TABEC PO PRN (06:00)
[2017-01-06] MEDS ORDERED: BISACODYL 10 MG SUPP PR PRN (06:00)
[2017-01-06 06:15] LABS: HEMATOCRIT 27.7 % (37-47)
[2017-01-06 07:11] VITALS: BP 95/62; PULSE 67; TEMP 36.6; O2SAT 97
[2017-01-06] MEDS: TRAMADOL HCL 50 MG TAB PO PRN ×3 (07:39→19:06)
[2017-01-06] MEDS ORDERED: NURSING DECISION MEDICATION ORDER SCH (07:45)
--- NOTE | 2017-01-06 08:10 | Anesthesiology Progress Note ---
Anesthesia Post Op Note Date & Time January 06, 2017 at 08:11 Vital Signs Vital Signs Past 12 Hours Date Time Temp Pulse Resp B/P Pulse Ox O2 Delivery O2 Flow Rate FiO2 01/06/17 07:20 Room Air 01/06/17 07:11 36.6 67 16 95/62 97 Nasal Cannula 2.0 01/06/17 03:17 37.1 66 16 91/53 99 Nasal Cannula 2.0 01/06/17 00:00 Room Air 01/05/17 22:55 36.6 72 16 93/54 98 Nasal Cannula 2.0 Notes Mental Status: alert / awake / arousable, participated in evaluation Pt Amnestic to Procedure: Yes Nausea / Vomiting: adequately controlled Pain: adequately controlled Airway Patency, RR, SpO2: stable & adequate BP & HR: stable & adequate Hydration State: stable & adequate Anesthetic Complications: no major complications apparent
[2017-01-06] MEDS: POLYETHYLENE (MIRALAX) 17 GM PACK PO SCH (08:15)
[2017-01-06] MEDS: PANTOprazole SOD 40 MG TAB PO SCH (08:15)
[2017-01-06] MEDS: MAGNESIUM OXIDE 400 MG TAB PO SCH (08:15)
--- NOTE | 2017-01-06 08:33 | PROGRESS NOTE ---
DATE: 01/06/2017 DATE: 01/06/2017. SUBJECTIVE: Moderate complaints of pain. Alert, oriented. No chest pain, shortness of breath. OBJECTIVE: Vital signs stable. All nerve roots the lower extremities function. ASSESSMENT: Status post lumbar spine laminectomy and fusion. DISPOSITION: Includes instructions, precautions, education. We will hopefully get her home tomorrow with home health. Will get her dressing changed, up on her feet, walker and medication.
[2017-01-06] MEDS ORDERED: NON-FORMULARY MEDICATION (Potassium 99 MG) PO SCH (09:00)
[2017-01-06] MEDS ORDERED: PROBIOTIC PRODUCT PO SCH (09:00)
--- NOTE | 2017-01-06 09:07 | HISTORY & PHYSICAL EXAMINATION ---
DATE OF ADMISSION: 01/05/2017 CHIEF COMPLAINT: Back pain, lower extremity difficulty at 81 years of age. HISTORY OF PRESENT ILLNESS: Tay is a delightful patient. I have followed her for months. She has classic claudication, neurogenic. Increasing pain with ambulation, decreased by sitting and becoming supine, some weakness to her lower extremities. She has been worked up. She has severe spinal stenosis of the spine. She is precision for elective spinal stenosis surgery. PAST MEDICAL HISTORY: Positive for anxiety, DVT, depression, diverticulosis, GERD, urticaria, hiatal hernia, peptic ulcer disease. PAST SURGICAL HISTORY: Include cervical laminectomy, elbow replacement, esophageal duodenoscopy, hernia repair, nerve stimulator, hysterectomy, cholecystectomy, appendectomy, hip replacement, cataract surgery. MEDICATIONS: Numerous they are reviewed, not dictated upon. Medications include Klonopin, magnesium, melatonin, Protonix, potassium, trubiotics and Zoloft. REVIEW OF SYSTEMS: She denies any blurred vision, double vision, tinnitus, vertigo. Denies chest pain, palpitations. Denies shortness of breath, asthma, wheezing. Denies nausea, vomiting, urgency, frequency, or dysuria. Admits to her major complaint of musculoskeletal back pain, lower extremity difficulty, and excessive pain with ambulation, alleviated by rest. OBJECTIVE EXAMINATION: GENERAL: She is alert, oriented. VITAL SIGNS: Blood pressure 130/80, pulse of 80, respiratory rate 16. HEENT: Essentially normal. Pupils react to light and accommodation. Ear, nose and throat clear. CARDIAC: Normal S1, S2. Distant S3. She is in sinus rhythm. LUNGS: Clear to auscultation. ABDOMEN: Soft, nontender, bowel sounds present. NEUROLOGIC: Intact. She has decreased reflexes and knee jerk in Achilles, but they are functional, sleep decreased weakness of dorsiflexion and plantarflexion, but it is functional. IMAGES: Demonstrate severe stenosis of the spine. IMPRESSION: Spinal stenosis, lumbar spine of moderate to significant severity. DISPOSITION: We are scheduling her for lumbar spine laminectomy, decompression, possible fusion with or without instrumentation.
[2017-01-06 12:07] LABS: HEMATOCRIT 30.8 % (37-47); MEAN CELL VOLUME 99.4 fL (80-100); MEAN CORPUSCULAR HEMOGLOBIN 32.6 pg (25-34); MEAN CORPUSCULAR HGB CONC 32.8 g/dl (32-36); MEAN PLATELET VOLUME 9.3 fL (7.4-10.4); PLATELET COUNT 203 K/uL (130-400)
[2017-01-06 12:36] LABS: BUN/CREATININE RATIO 13.1 (10-20); CALCIUM 8.5 mg/dl (8.5-10.1); CREATININE 0.7 mg/dl (0.60-1.20); POTASSIUM 3.9 mmol/L (3.5-5.1)
[2017-01-06 13:00] VITALS: BP 100/61; PULSE 64; TEMP 36.4
--- NOTE | 2017-01-06 15:01 | Hospitalist Progress Note ---
Hospitalist Progress Note Date of Service January 06, 2017. (Trisha Babb PA-C) Subjective Pt evaluation today including: conversation w/ patient PO Intake: Good Voiding: no voiding problems The patient was seen and examined this morning. Patient reports feeling some back pain, rated as a 2 out of 10 when she sitting still or atenolol a time whenever she is asked to roll over. She reports her bowels haven't moved since on Thursday prior to her surgery. She does feel somewhat distended and denies any flatus. She has been eating and drinking well and denies any abdominal pain or nausea. She is urinating without difficulty. The patient has been up and ambulating PT/OT several times a day and reports that things are going well. Additional Comments: Constitutional: No fever, sweats or chills Eyes: No diplopia, no worsening or blurred vision ENT: normal hearing, no trouble swallowing Respiratory: No cough, sputum, dyspnea at rest or on exertion Cardiovascular: No chest pain, tightness or palpitations Abdomen: + Distention, last bowel movement 2 days ago, No pain, nausea, vomiting , diarrhea Musculoskeletal: + Back pain No joint pain, calf pain, swelling Neurologic: No weakness, numbness/tingling, or balance problems Psychiatric: No anxiety or depression Skin: No rash or itch (Trisha Babb PA-C) Objective Vital Signs Date Time Temp Pulse Resp B/P Pulse Ox O2 Delivery O2 Flow Rate FiO2 01/06/17 13:00 36.4 64 18 100/61 01/06/17 07:20 Room Air 01/06/17 07:11 36.6 67 16 95/62 97 Nasal Cannula 2.0 01/06/17 03:17 37.1 66 16 91/53 99 Nasal Cannula 2.0 01/06/17 00:00 Room Air 01/05/17 22:55 36.6 72 16 93/54 98 Nasal Cannula 2.0 01/05/17 19:10 36.7 76 16 103/57 95 Nasal Cannula 4.0 01/05/17 16:20 Nasal Cannula 4.0 01/05/17 15:47 36.4 71 16 117/75 97 Nasal Cannula 4.0 (Filipowicz,Trisha G., PA-C) Physical Exam Notes: General: awake, alert, no apparent distress Head: Normocephalic, atraumatic ENT: PERRL, EOMI, no pharyngeal exudate, mucous membranes moist Chest: Clear to auscultation, on room air, no adventitious breath sounds Cardiac: Regular rate and rhythm, no murmur, no JVD, normal peripheral pulses, good capillary refill Abdominal: + Mildly distended, tympanic to percussion, hypoactive bowel sounds, soft, nontender to palpation, no rebound, guarding or tenderness Extremities: Normal inspection, no peripheral edema or erythema, calfs nontender to palpation Back: Dressing c/d/i, no surrounding erythema or edema. Psych: Normal mood and affect Neuro: AAO x 3, strength intact bilaterally and related 5/5, no motor deficits, speech is clear, no peripheral sensory deficits (Trisha Babb PA-C) Laboratory Results Last 24 Hours Test 01/06/17 06:05 01/06/17 11:57 Hemoglobin 9.2 g/dL 10.1 g/dL Hematocrit 27.7 % 30.8 % White Blood Count 8.80 K/uL Red Blood Count 3.10 M/uL Mean Corpuscular Volume 99.4 fL Mean Corpuscular Hemoglobin 32.6 pg Mean Corpuscular Hemoglobin Concent 32.8 g/dl RDW Standard Deviation 50.1 fL RDW Coefficient of Variation 13.9 % Platelet Count 203 K/uL Mean Platelet Volume 9.3 fL Sodium Level 141 mmol/L Potassium Level 3.9 mmol/L Chloride Level 103 mmol/L Carbon Dioxide Level 33 mmol/L Anion Gap 5.0 mmol/L Blood Urea Nitrogen 9 mg/dl Creatinine 0.70 mg/dl Est Creatinine Clear Calc Drug Dose 55.4 ml/min Estimated GFR () 94.2 Estimated GFR (Non- 81.3 BUN/Creatinine Ratio 13.1 Random Glucose 91 mg/dl Calcium Level 8.5 mg/dl (Trisha Babb PA-C) Assessment and Plan 81 y/o F who was admitted 01/05/17 s/p lumbar decompression and fusion by Dr. Peralta. Back pain: decompression and fusion with Dr. Peralta on 01/05- - Analgesia with tramadol and dilaudid prn - Tolerating regular diet - No anticoagulation with spinal surgery - Will increase bowel regimen with abdominal distension present on exam, currently has MiraLAX, change ordered dulcolax tabs to scheduled and keep dulcolax suppository prn. If no bowel movement in 24 hour would give suppository. 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 Hx of DVT - pt cannot remember any details about this Anx/depression: - continue zoloft 50 mg daily CODE STATUS: Full code Disposition: From home, likely discharge tomorrow per primary team (Trisha Babb, TOM) Reviewed: Pt Seen/Exam by Me (Linda Daley MD) History Physician It Software Engineer Supervision Note: I interviewed and examined the patient. Discussed with AKSHAT Babb and agree with findings and plan as documented in the note. Any exceptions or clarifications are listed here: Patient doing very well. Review of the chart shows that she had lone A. fib in 2002 with an hospitalization for near syncope associated with that. She has not had any recurrence that she knows of since then, but does report occasional palpitations that are brief mostly at nighttime every other month. She has not followed up with her doctor regarding the symptoms. None since being in the hospital this admission. Vitals reviewed RRR, no MGR Clear to auscultation bilaterally, breathing unlabored Abdomen positive bowel sounds soft, mildly distended, no guarding or tenderness Extremities no edema, no calf tenderness, SCDs in place 81-year-old female with a history of lone atrial fibrillation, autoimmune hepatitis, depression/anxiety, GERD and Schatzki's ring, here status post lumbar decompression and fusion. Doing well postoperatively -Mild drop in hemoglobin with anemia of acute blood loss status post surgery -Continue dictations from home -Agree with bowel regimen -Review of record and all EKGs since 2002 showing no recurrence of A. fib however the history sounds like she could be having paroxysmal A. fib at home- advised her to let us know if she has any heart palpitations during admission- advised her to bring this up with her PCP at hospital follow-up after discharge Documented By: Linda Daley (Linda Daley MD)
--- NOTE | 2017-01-06 16:05 | Discharge Instructions ---
Discharge Instructions Date of Service January 06, 2017. Admission Reason for Admission: Spinal Stenosis Discharge Discharge Diagnosis / Problem: stenosis Discharge Goals Goal(s): Improve function Activity Recommendations Activity Limitations: as noted below Lifting Limitations: gradually increase as tolerated Exercise/Sports Limitations: until after follow-up appointment May Resume Sexual Activity: after follow-up appointment Shower/Bathe: keep incision dry Driving or Machine Use: home, rest, recover . Instructions / Follow-Up Instructions / Follow-Up MEDICATIONS: Please take your prescriptions as instructed at your pre-op appointment. SPECIAL CARE: The following information is intended to answer some of the common questions and concerns regarding your surgery. Each patient is an individual and receives individual counselling throughout the course of treatment, from diagnosis to surgery all the way through recovery. What follows is not an exhaustive list, but should be a useful guide to some of the common questions and concerns patients have regarding their surgeries. These are not provided to keep you from calling us; rather, they give you something accurate and concrete to reference as you recover from your procedure. If you need us, we are available to you. As always, if you are not sure about something, call us at [phone]. MEDICAL EMERGENCIES: For these conditions, call 911 or go to your local hospital-based Emergency Department - not [facility] or equivalent. * Paralysis * Severe chest pain or difficulty breathing * Swelling or redness of either leg Spine procedures can be rather complex and though complications are rare, they do occur. In such cases, effective advice regarding emergency situations cannot always be addressed over the telephone. You may be referred to the emergency department for more effective management of your problem. Activity Limitations: It is important to give your body time to heal, so please limit your activities : * In general, don't do anything that moves your spine too much. You should avoid contact sports, twisting or heavy lifting while you recover. * 5-10 pounds is all you should attempt to lift. * You should not plan on driving for approximately 3 weeks and you should avoid traveling more than 30-45 minutes at a time. Longer trips should be broken down with walking breaks spaced appropriately. * Physical therapy is not usually required. * Walking and good posture practices will help you recover and regain your function. * Avoid straining or sudden changes in position. * In general, the goal is to take it easy and recover. Don't cause any new problems. Just relax. Showers: * Do not take a bath, use a Jacuzzi or hot tub or otherwise submerge your incision. * It is usually safe to take a shower 4-5 days after your surgery. * Your incision does not require any special creams or ointments. * Simply clean it with soap and water, dry and re-dress with a clean bandage afterwards. Incision: * Keep incision clean, dry and protected until your first follow-up appointment. * Some amount of drainage and redness is normal. Any drainage should be fairly clear and not have a foul odor. * If you feel anything is wrong or you have excessive drainage, please call us. * Your stitches and adrian will be removed 10-14 days after your surgery. At the time of your first post-op visit. * Neck surgeries are typically closed with a suture underneath the skin. The steri-strips over the incision should be maintained until we see you in the office. Bracing: * You may be provided with a back or neck brace to encourage good posture and prevent injury. It will remind you not to do too much as you heal and will alert others to the fact that you have had a surgery. * Back braces may be removed for showers and when you are resting at home. They must be worn when you are walking around for any period of time or for travel. * For neck surgery, you will likely be provided with two cervical collars. The soft collar (Graham or foam rubber) is worn most commonly throughout the day and while sleeping. The plastic collar (provided at the hospital) is for showering/bathing. * Except while eating, collars should remain in place. More specifically, bracing is provided for a purpose and should be worn. * Please obtain your brace or collars prior to your operation and bring them to the hospital with you on the day of surgery. * You should also bring your collars to your post-op appointment with Dr. Peralta. You should always take good care of your body and practice healthy habits, especially following surgery. You should: * Follow your doctor's treatment plan * Sit and stand properly with good posture (ears over shoulders, shoulders over hips) Don't slouch * Learn to lift correctly * Exercise regularly (low-impact aerobic exercise is especially good, but check with your doctor first) * Generally, be up and walking for 5-10 minutes at a time at least 3-4 times per day from the day you get home * Increasing walking to tolerance until you can walk for 20-30 minutes at a time * Attain and maintain a healthy body weight * Eat healthy foods ( a well-balanced, low-fat diet rich in fruits and vegetables) and get enough calcium * Avoid excessive use of alcohol When to call our office - If you notice any of the following: * Increased pain not relieve by pain medicine * Fevers greater then 100 degrees F, chills or flu symptoms * Increased redness around incision * Drainage from the incision that is not clear * Any foul smelling drainage * Swelling or fluid collection beneath the skin Miscellaneous: * In the hospital, you may be given a walker or cane for support while walking. These are temporary needs and are intended to prevent injuries due to falls. You may discontinue them when you feel strong and steady enough on your feet. * Sleep in a comfortable position. We find that many patients find a lounge chair or recliner with several pillows to be beneficial in the early post-operative period. * The support stockings should be used for 7-10 days and may be discontinued when you are back to walking more and conducting usual household activities. No problem is insignificant. We are here to help you and get you well. Contact us at [phone]. Definitions: Foraminotomy: If part of the disc or a bone spur (osteophyte) is pressing on a nerve as it leaves the vertebra (through an exit called the foramen), a foraminotomy may be done. Otomy means "to make an opening." A foraminotomy is making the opening of the foramen larger, so the nerve can exit without being compressed. Laminotomy: Similar to the foraminotomy, a laminotomy makes a larger opening, this time in your bony plate protecting your spinal canal and spinal cord (the lamina). The lamina may be pressing on your nerve, so the surgeon may make more room for the nerves using a laminotomy. Laminectomy: Sometimes, a laminotomy is not sufficient. The surgeon may need to remove all or part of the lamina. This procedure is called a laminectomy. This can often be done at many levels without any harmful effects. Current Hospital Diet Patient's current hospital diet: Regular Diet Discharge Diet Recommended Diet: Regular Diet Procedures Procedures Performed: L2-L5 Laminectomy and Fusion without Instrumentation Pending Studies Studies pending at discharge: no Medical Emergencies . Who to Call and When: Medical Emergencies: If at any time you feel your situation is an emergency, please call 911 immediately. . Non-Emergent Contact Non-Emergency issues call your: Surgeon Call Non-Emergent contact if: your pain is not controlled, wound has increased drainage, you have any medication questions . "Provider Documentation" section prepared by Kamran Peralta. . VTE Core Measure Inpt VTE Proph given/why not?: Treatment not indicated
[2017-01-06 19:00] VITALS: BP 105/61; PULSE 71; TEMP 37.1; O2SAT 94
[2017-01-06] MEDS: AZATHIOPRINE 50 MG TAB PO SCH (21:15)
[2017-01-06] MEDS: BISACODYL 5 MG TABEC PO SCH (21:15)
[2017-01-06] MEDS: SERTRALINE HCL 50 MG TAB PO SCH (21:16)
[2017-01-06] MEDS: CLONAZEPAM 0.5 MG TAB PO SCH (21:18)
[2017-01-06 23:10] VITALS: BP 94/54; PULSE 76; TEMP 37.1; O2SAT 94
[2017-01-07] MEDS: ACETAMINOPHEN IV 1,000 MG in EMPTY BAG 0 ML IV SCH ×2 (05:30→14:43)
[2017-01-07 05:58] VITALS: BP 107/64; PULSE 70; TEMP 37.1; O2SAT 98
[2017-01-07 06:40] LABS: HEMATOCRIT 30.7 % (37-47)
[2017-01-07] MEDS: TRAMADOL HCL 50 MG TAB PO PRN (07:35)
[2017-01-07] MEDS: MAGNESIUM OXIDE 400 MG TAB PO SCH (07:37)
[2017-01-07] MEDS: POLYETHYLENE (MIRALAX) 17 GM PACK PO SCH (07:38)
[2017-01-07] MEDS: PANTOprazole SOD 40 MG TAB PO SCH (07:38)
[2017-01-07] MEDS: BISACODYL 5 MG TABEC PO SCH (07:38)
[2017-01-07] MEDS: HYDROmorphone INJ 1 MG/ML SYR IV PRN (11:09)
--- NOTE | 2017-01-07 12:36 | Hospitalist Progress Note ---
Hospitalist Progress Note Date of Service January 07, 2017. (Danay Stone ., YAQUELINC) Subjective Pt evaluation today including: conversation w/ patient, physical exam, chart review, lab review, review of inpatient medication list Pain: None PO Intake: Tolerating PO diet Voiding: no voiding problems Patient reports feeling well. She currently denies any back pain. She states that she is eating well and urinating without difficulty post op. She still is not passing much gas, however, and denies any bowel movements. The patient denies fevers, chills, sweats, chest pain, palpitations, claudication, cough, wheezing, shortness of breath, nausea, vomiting, abdominal pain, dysuria, hematuria, urinary retention, paralysis, weakness, numbness and tingling. Additional Comments: See HPI for pertinent positives and negatives. All other systems reviewed and negative. (Danay Stone, YAQUELINC) Objective Vital Signs Date Time Temp Pulse Resp B/P Pulse Ox O2 Delivery O2 Flow Rate FiO2 01/07/17 05:58 37.1 70 16 107/64 98 Room Air 01/06/17 23:15 Nasal Cannula 2.0 01/06/17 23:10 37.1 76 16 94/54 94 Nasal Cannula 2.0 01/06/17 19:00 37.1 71 16 105/61 94 Room Air 01/06/17 15:40 Room Air 01/06/17 13:00 36.4 64 18 100/61 (Danay Stone, AKSHAT-C) Physical Exam General Appearance: WD/WN, no apparent distress Eyes: normal inspection, PERRL, EOMI ENT: normal ENT inspection, hearing grossly normal, pharynx normal, + pertinent finding (dry oral mucosa) Neck: supple, no JVD, trachea midline Respiratory/Chest: lungs clear, normal breath sounds, no respiratory distress Cardiovascular: regular rate, rhythm, no gallop, no murmur Abdomen: normal bowel sounds, non tender, + distended (mildly distended) Extremities: non-tender, normal inspection, no pedal edema, + pertinent finding (back surgical site dressing c/d/i) Neurologic/Psychiatric: alert, normal mood/affect, oriented x 3 Skin: normal color, warm/dry, no rash (Danay Stone, YAQUELINC) Laboratory Results Last 24 Hours Test 01/07/17 06:30 Hemoglobin 10.3 g/dL Hematocrit 30.7 % (Danay Stone ., YAQUELINC) Assessment and Plan 81 y/o female with a history of autoimmune hepatitis, anxiety, depression, CVA, DVT who presents s/p L2-L5 laminectomy and fusion with Dr. Peralta on 01/05 for medical management. -Pain management, DVT prophylaxis, and PT/OT as per primary team -POD #2. AVSS -Dulcolax changed from prn to scheduled BID, continue daily Miralax. Consider Dulcolax suppository if still no BM Acute blood loss anemia in postoperative setting--stable/improving -Initial Hgb 12.1, dropped to 9.2 following procedure -Hgb now stable in 10s ?Paroxysmal afib--stable, currently in sinus rhythm -Still denies any chest pain, palpitations, dizziness, shortness of breath Autoimmune Hepatitis--stable - Continue Imuran 50 mg PO qd H/o CVA 2011 - Residual deficit includes some swallowing issues related to her epiglottis no longer closing fully - Patient has been eating and drinking without difficulty. H/o DVT - Pt cannot remember any details about this Anx/depression--stable -Continue Zoloft 50 mg PO qd and Klonopin 0.5 mg PO qhs Code Status -Level I, FULL RESUSCITATION STATUS (Danay Stone, TOM) Reviewed: Pt Seen/Exam by Me (Linda Daley MD) History Physician Director And Professor Supervision Note: I interviewed and examined the patient. Discussed with AKSAHT Stone and agree with findings and plan as documented in the note. Any exceptions or clarifications are listed here: Patient doing very well. Plan is for discharge to home today and she has a friend that will be staying with her 24 7 Vitals reviewed RRR, no MGR Clear to auscultation bilaterally, breathing unlabored Abdomen positive bowel sounds soft, mildly distended, no guarding or tenderness Extremities no edema, no calf tenderness, SCDs in place 81-year-old female with a history of lone atrial fibrillation, autoimmune hepatitis, depression/anxiety, GERD and Schatzki's ring, here status post lumbar decompression and fusion. Doing well postoperatively -Mild drop in hemoglobin with anemia of acute blood loss status post surgery- hemoglobin stable in the tens no transfusion necessary -Agree with bowel regimen -Review of record and all EKGs since 2002 showing no recurrence of A. fib however the history sounds like she could be having paroxysmal A. fib at home- advised her to let us know if she has any heart palpitations during admission- advised her to bring this up with her PCP at hospital follow-up after discharge Documented By: Linda Daley (Linda Daley MD)
[2017-01-07 15:08] VITALS: BP 107/64; PULSE 70; TEMP 37.1; O2SAT 98
--- NOTE | 2017-01-07 16:56 | DISCHARGE SUMMARY ---
SUBJECTIVE: Minimal complaints of pain, mostly incisional pain. No significant lower extremity difficulties. She is alert, oriented. No chest pain or shortness of breath. OBJECTIVE: Vital signs stable, afebrile. Wound clean. LABORATORY DATA: 30.7 hematocrit. ASSESSMENT: Status post multilevel spinal stenosis surgery. She is now out approximately 46 hours. DISPOSITION: We will have her up and ambulatory today. We will discharge her home sometime after lunch. Her dressing will be changed as well. She has prescriptions on her chart. She has instructions, precautions basically keep the wound clean and dry and general ambulation. She does not have to go long distances. She should have an appointment to see me back in the office in 10 days.
[2017-01-21] MEDS ORDERED: TRAM-10 PO (08:55)
[2017-05-05] MEDS ORDERED: HYDR-4383 PO (15:35)
[2017-05-05] MEDS ORDERED: MDRDP21 PO (15:35)
== END 2017-01-07 15:55 | disposition home health service (06) ==
LOC: ENRESERVTM → ENRESERVDT → C.ACU 05:22 → C.3E 09:29
PROVIDERS: ADMIT Orthopaedic Surgery Orthopaedic Surgery of the Spine; ATTEND Orthopaedic Surgery Orthopaedic Surgery of the Spine
DX: M48.06 Spinal stenosis, lumbar region (principal); K21.9 Gastro-esophageal reflux disease without esophagitis; Z79.899 Other long term (current) drug therapy

== ENCOUNTER 2017-01-24 17:58 | Emergency (ER) | payer BC ==
[~2017-01-24] VITALS: Ht 167.6 cm; Wt 53.0 kg
[~2017-01-24 17:58] MED LIST changes: +TRAM-10 PO
[2017-01-24 18:05] VITALS: TEMP 37.3; Ht 167.6 cm; Wt 53.0 kg
[2017-01-24] MEDS ORDERED: TRAMADOL HCL 50 MG TAB PO STA (18:22)
--- NOTE | 2017-01-24 18:59 | DIAGNOSTIC IMAGING REPORT ---
L-SPINE MIN 4 VIEWS ROUTINE CLINICAL HISTORY: Right low back pain. COMPARISON: Lumbar spine CT February 05, [address] of the abdomen and pelvis September 21, 2016. FINDINGS: Intraoperative canalicular stimulator is noted as well as bilateral hip arthroplasties. Multilevel posterior decompression is noted. There is lateral bone graft material. No acute fractures identified. Mild anterolisthesis of L3 on L4 and L4 and L5 is unchanged. Vertebral body heights are maintained. IMPRESSION: 1. No acute lumbar spine fracture. 2. Status post multilevel posterior lumbar decompression. 3. Moderate multilevel degenerative disc disease. Stable grade I anterolisthesis of L3 on L4 and L4-L5. Electronically signed by: Khai Pichardo M.D. 01/24/2017 6:57 PM Dictated Date/Time: 01/24/2017 6:54 PM
--- NOTE | 2017-01-24 19:32 | EMERGENCY ROOM VISIT NOTE ---
ED Visit Note First contact with patient: 18:01 This Patient was discussed with the physician Ultrasound Tech, Ari Grace PA-C. The pertinent historical and physical exam findings were confirmed. I agree with the studies ordered and with the interpretations of these studies. I agree with the disposition and care plan.
--- NOTE | 2017-01-24 20:54 | DIAGNOSTIC IMAGING REPORT ---
CT OF THE LUMBAR SPINE WITHOUT CONTRAST CT DOSE: 610.26 mGy.cm CLINICAL HISTORY: Acute right lower back pain radiating into right lower extremity. Surgery January 05, 2017. TECHNIQUE: Axial images of the lumbar spine were obtained without IV contrast. Sagittal and coronal reconstructions were viewed. COMPARISON STUDY: Lumbar spine CT February 05, 2016 and lumbar spine radiograph performed earlier today. FINDINGS: For purposes of numbering on this exam, the L5-S1 disc space is assigned to axial image 305 of 368. There has been an interval multilevel laminectomy extending from the L2-L4 levels. Postoperative evaluation is suboptimal given CT technique. Evaluation of the central canal and neural foramen is nearly nondiagnostic given CT technique. Grade I anterolisthesis of L3 on L4 and L4 and L5 is unchanged. There is no acute lumbar spine fracture. Infiltration and fluid within the laminectomy bed is noted. This is suboptimally assessed by CT. No anterior paravertebral abnormalities are identified. The abdominal aorta is ectatic. Intracanalicular electrode enters the canal at the T11-T12 level. The tip of the electrode is not visualized on this exam. IMPRESSION: 1. Status post L2-L4 laminectomy with placement of lateral bone graft material. Evaluation of the operative bed, central canal and neural foramen is nearly nondiagnostic given CT technique. An operative bed fluid collection cannot be excluded by CT. 2. No acute lumbar spine fracture or subluxation. 3. Stable grade I anterolisthesis of L3 on L4 and L4 and L5. Electronically signed by: Khai Pichardo M.D. 01/24/2017 8:52 PM Dictated Date/Time: 01/24/2017 8:28 PM
[2017-01-24 22:05] VITALS: BP 116/61; PULSE 65; O2SAT 97
--- NOTE | 2017-01-26 19:02 | EMERGENCY ROOM VISIT NOTE ---
History First contact with patient: 18:01 Chief Complaint: BACK PAIN Stated Complaint: BACK PAIN History of Present Illness The patient is a 81 year old white female who presents to the Emergency Room with complaints of sudden onset of low back pain that radiates into her right leg about an hour and a half prior to arrival. Patient was standing at the stove cooking some eggs when she developed severe low back pain. She describes it as though there is something burning into her right leg. There was no trauma. She denies any falls. She recently had lumbar back surgery January 05 for spinal stenosis. She states she has had no pain since surgery. No loss of bowel or bladder control. No treatment yet. She did not take any Tylenol or tramadol prior to coming to the ED. No symptoms of the left leg. She denies any numbness or tingling. Review of Systems REVIEW OF SYSTEM: HEENT: No dizziness, visual problems, hearing loss, or tinnitus. There is no difficulty swallowing and no oral lesions are present. LYMPH: No adenopathy. PULMONARY: No cough, shortness of breath, sputum production or hemoptysis. CARDIOVASCULAR: No chest pain, palpitations, shortness of breath or peripheral edema. GASTROINTESTINAL: No diarrhea, constipation, nausea, vomiting, or abdominal pain. GENITOURINARY: No dysuria, frequency, urgency or nocturia. NEUROLOGIC: No weakness, muscle tenderness, epilepsy or history of neurological problems. MUSCULOSKELETAL: No history of joint tenderness/swelling. Positive history of arthritis and arthralgias. SKIN: No rashes or lesions. PSYCHIATRIC: Positive history of depression. ENDOCRINE: No history of diabetes, thyroid disorders, or abnormal hair growth. Past Medical/Surgical History Medical Problems: (1) Anxiety (2) Deep venous thrombosis (3) Depression (4) Diverticulosis (5) Dyslipidemia (6) GERD (gastroesophageal reflux disease) (7) h/o Schatski's ring (8) H/O urticaria (9) H/O: CVA (cerebrovascular accident) (10) Hiatal hernia (11) History of peptic ulcer disease (12) Paroxysmal atrial fibrillation (13) Spondylolisthesis, lumbar region Surgical Problems: (1) H/O blepharoplasty (2) H/o cervical laminectomy (3) H/O elbow replacement (4) H/O esophagogastroduodenoscopy (5) H/O esophagogastroduodenoscopy (6) H/o excision radial head (7) H/O hernia repair (8) H/o paravaginal defect repair (9) H/o sacral nerve stimulator implant (10) H/o vesicourethropexy (11) H/O: hysterectomy (12) Hx of cholecystectomy (13) S/P appendectomy (14) S/P cataract surgery (15) S/P hip replacement Family History Omitted secondary to age Social History Smoking Status: Never Smoker Alcohol Use: none Drug Use: none Marital Status: Housing Status: lives with family Occupation Status: retired Current/Historical Medications Scheduled Azathioprine (Imuran), 50 MG PO HS Clonazepam (Klonopin), 0.5 MG PO HS Magnesium Oxide (Mg Supplement (Magnesium), 400 MG PO QAM Melatonin (Melatonin Maximum Strengt), 5 MG PO HS Pantoprazole (Protonix), 40 MG PO QAM Potassium (Potassium), 99 MG PO QAM Probiotic Product (Trubiotics), 1 CAP PO QAM Sertraline (Zoloft), 50 MG PO PM Scheduled PRN Acetaminophen (Tylenol Arthritis Ext Rel), 1,300 MG PO Q8H PRN for Pain Tramadol (Ultram), 50 MG PO Q4H PRN for Pain Allergies Coded Allergies: Iodinated Diagnostic Agents (Verified Allergy, Intermediate, Rash/Hives, ) Oxycodone (Verified Allergy, Intermediate, PERCOCET-ITCHING OF ARMS, SHOULDERS, 01/21/17) Chlorhexidine (Unverified Allergy, Unknown, RASH, 01/21/17) Corticosteroids (Verified Allergy, Unknown, STERIOD INJECTIONS - FLUSHING AND BLOTCHING REDNESS, 01/21/17) Dipyridamole (Verified Allergy, Unknown, reaction unknown, 01/21/17) Mepivacaine (Verified Allergy, Unknown, CAN'T REMEMBER?, 01/21/17) Morphine (Verified Allergy, Unknown, RASH, 01/21/17) Codeine (Verified Adverse Reaction, Mild, GI UPSET, 01/21/17) Fenoprofen (Verified Adverse Reaction, Unknown, NALFON-HEPATITIS, CAN TAKE MOTRIN, 01/21/17) Physical Exam Vital Signs Date Time Temp Pulse Resp B/P (MAP) Pulse Ox O2 Delivery O2 Flow Rate FiO2 01/24/17 22:05 65 18 116/61 97 01/24/17 20:29 65 18 126/61 97 Room Air 01/24/17 18:57 82 16 123/64 98 Room Air 01/24/17 18:05 37.3 79 18 129/88 96 Room Air Physical Exam Gen.: Frail, elderly white female, in obvious discomfort. No acute distress. Laying on a bed. Alert and oriented. Skin:Warm and dry with fair turgor. No rashes or lesions. No ecchymosis or edema. The patient is not diaphoretic. No abrasions. Healing scar on her lumbar spine from her previous surgery. Scabs are present. No signs of infection. No redness or warmth. Musculoskeletal: Patient has intact motor function to both lower extremities at the hips, knees, and ankles. She has no groin pain with log rolling of the hips or passive flexion of the right hip. Rolling her onto her left side, patient has no significant discomfort with palpation over her thoracic or upper lumbar spine. She does have discomfort over the L5 disc space extending into the right SI joint. There is some discomfort near the ischial tuberosity and the sciatic notch. No pain with palpation on the left side. Neurologic: Gross sensation is intact across both lower extremities by soft touch. She complains of some blunted sensation in the right ankle and foot, but also states this is her baseline. DTRs are 2+ bilaterally at the knees. Medical Decision & Procedures ER Provider Diagnostic Interpretation: X-ray imaging of the lumbar spine was obtained today. This was read by radiology as negative for lumbar spine fracture. She is status post multilevel posterior lumbar decompression. Moderate multilevel degenerative disc disease with stable anterolisthesis of L3 on L4 and L4 on L5. CT scan imaging of the lumbar spine was also obtained. This was read by radiology as negative for fracture or subluxation. Stable anterolisthesis was also seen again. She is status post L2 through 4 laminectomy. Medications Administered Medications (Trade) Dose Ordered Sig/Kelsea Route Start Time Stop Time Status Last Admin Dose Admin Tramadol HCl (Ultram Tab) 50 mg NOW STAT PO 01/24/17 18:22 01/24/17 18:24 DC 01/24/17 18:27 50 MG ED Course Patient was evaluated in C3. Patient and her son were educated regarding today' s exam. X-ray imaging and CT imaging of the spine was obtained. After initial examination, patient requested that I not be involved in her care any further, perhaps because I have known her for over 15 years in another setting. Care was transferred to Dr. Munguia. Please see his dictation for further management. Patient remained stable under my care. I did order Ultram 50 mg orally to address her pain prior to radiographic imaging. Medical Decision Per Dr. Munguia Impression Primary Impression: Lumbar back pain with radiculopathy affecting right lower extremity Departure Information Referrals Richa Mejia M.D. (PCP) Patient Instructions My [facility]
[2017-05-05] MEDS ORDERED: HYDR-4383 PO (15:35)
[2017-05-05] MEDS ORDERED: MDRDP21 PO (15:35)
== END 2017-01-24 21:56 | disposition home or self-care (01) ==
LOC: C.EDC 17:58 → EDBD 17:58 → C.EDC 21:56
DX: M54.16 Radiculopathy, lumbar region (principal); K21.9 Gastro-esophageal reflux disease without esophagitis; F32.9 Major depressive disorder, single episode, unspecified; F41.9 Anxiety disorder, unspecified; Z86.718 Personal history of other venous thrombosis and embolism; Z86.73 Personal history of transient ischemic attack (TIA), and cerebral infarction without residual deficits; Z87.11 Personal history of peptic ulcer disease; Z96.629 Presence of unspecified artificial elbow joint; Z90.710 Acquired absence of both cervix and uterus; Z90.49 Acquired absence of other specified parts of digestive tract; Z90.89 Acquired absence of other organs; Z98.49 Cataract extraction status, unspecified eye; Z96.643 Presence of artificial hip joint, bilateral; Z98.890 Other specified postprocedural states; Z79.899 Other long term (current) drug therapy

== ENCOUNTER → 2017-04-02 | Outpatient (CLI) | payer BC ==
[~2017-04-02] MED LIST changes: +GABA1CAP4 PO; +HYDR-4383 PO; +HYDR4TAB78 PO; +MDRDP21 PO; +POTA550T4 PO; +TPRSR/25 PO; +ZLF/100 PO
--- NOTE | 2017-04-02 10:00 | DIAGNOSTIC IMAGING REPORT ---
CT LUMBAR SPINE WITHOUT CT DOSE: 262.74 mGycm CLINICAL HISTORY: Spinal stenosis. TECHNIQUE: Helical images were acquired in transverse plane. Reformatted sagittal and coronal images were reviewed. A dose lowering technique was utilized adhering to the principles of ALARA. CONTRAST: No contrast was administered COMPARISON STUDY: 01/24/2017 FINDINGS: L1-2 level: There is a mild circumferential disc bulge. There is no significant foraminal narrowing. There is minimal spinal canal narrowing L2-3 level: There are posterior laminectomy changes. There is no significant spinal or foraminal stenosis. L3-4 level: There is marked degeneration of the L3-4 disc. There is a grade 1 spondylolisthesis of L3 on L4. There are post laminectomy changes. There is no significant spinal or foraminal stenosis. L4-5 level: There is a grade 1 spondylolisthesis of L4 and L5. There are postlaminectomy changes. There is no significant spinal or foraminal stenosis L5-S1 level: There is facet joint spurring. There is a right posterior lateral spurring which deforms the thecal sac. There is mild right-sided foraminal narrowing. No acute fractures are evident IMPRESSION: 1. No significant change compared the preceding study 2. No acute fractures or subluxations 3. Stable grade 1 spondylolisthesis of L3 on L4, and L4 on L5 4. Postsurgical changes of L2-L4 posterior laminectomies with lateral bone graft material 5. Stable mild right-sided foraminal narrowing the L5-S1 level. Stable right posterior lateral spurring which mildly deforms the thecal sac. Electronically signed by: Raffaele Scott M.D. 04/02/2017 9:58 AM Dictated Date/Time: 04/02/2017 9:50 AM
== END | disposition home or self-care (01) ==
LOC: C.CTS 09:27
PROVIDERS: ATTEND Orthopaedic Surgery Orthopaedic Surgery of the Spine
DX: M48.06 Spinal stenosis, lumbar region (principal); M43.16 Spondylolisthesis, lumbar region; M43.17 Spondylolisthesis, lumbosacral region; M48.07 Spinal stenosis, lumbosacral region; Z98.890 Other specified postprocedural states

== ENCOUNTER → 2017-04-07 | Outpatient (CLI) | payer BC ==
[2017-04-07 10:27] LABS: BASO % 0.5 %; BASO ABS # 0.03 K/uL (0-0.2); COMPLETE YES; EOS % 3.6 %; HEMATOCRIT 35.9 % (37-47); IG% 0.2 %; LYMPH % 21.7 %; LYMPH ABS # 1.25 K/uL (1.2-3.4); MEAN CELL VOLUME 93.2 fL (80-100); MEAN CORPUSCULAR HEMOGLOBIN 31.7 pg (25-34); MEAN PLATELET VOLUME 10.1 fL (7.4-10.4); MONO % 13.7 %; NEUT % 60.3 %; PLATELET COUNT 270 K/uL (130-400); RED BLOOD COUNT 3.85 M/uL (4.2-5.4); WHITE BLOOD COUNT 5.77 K/uL (4.8-10.8)
[2017-04-07 10:39] LABS: PROTHROMBIN TIME (PATIENT) 10.8 SECONDS (9.0-12.0)
[2017-04-07 10:43] LABS: BLOOD UREA NITROGEN 15 mg/dl (7-18); BUN/CREATININE RATIO 22.4 (10-20); CALCIUM 9.2 mg/dl (8.5-10.1); CARBON DIOXIDE 33 mmol/L (21-32); CHLORIDE 102 mmol/L (98-107); CREATININE 0.67 mg/dl (0.60-1.20); GLUCOSE 84 mg/dl (70-99); POTASSIUM 3.9 mmol/L (3.5-5.1); SODIUM 138 mmol/L (136-145)
--- NOTE | 2017-04-13 12:42 | CODING QUERY MEDICAL NECESSITY ---
CQSUPPORTING DIAGNOSIS NEEDED A supporting diagnosis is required for the test/procedure performed on this patient in order for us to be reimbursed by the patient's insurance. Please provide a supporting diagnosis for the following test/procedure listed below next to the test name along with your signature. *If there is no additional diagnosis for this patient that would support the following test/procedure please document that below next to the test/procedure. Test(s)/Procedure(s) that require a supporting diagnosis: DOS 04/07/17 COMPLETE BLOOD COUNT TEST PTT TEST PROTHROMBIN TEST Provider Signature: Date: Thank you Fabiola Thakkar Health Information Management Once completed, please kindly fax back to [phone] For questions please call [phone]
== END | disposition home or self-care (01) ==
LOC: C.LAB 08:26
PROVIDERS: ATTEND Orthopaedic Surgery Orthopaedic Surgery of the Spine
DX: Z01.812 Encounter for preprocedural laboratory examination (principal)

== ENCOUNTER 2017-04-30 05:15 | Observation (INO) | payer BC ==
--- NOTE | 2017-04-29 22:21 | HISTORY & PHYSICAL EXAMINATION ---
DATE OF ADMISSION: 04/30/2017 SUBJECTIVE: She is being preoped for a laminectomy L5-S1, lumbar spine. She has some narrowing at L5-S1. CHIEF COMPLAINT: Back and lower extremity difficulties, nerve root pain and inability to ambulate. PAST MEDICAL HISTORY: Positive for chronic cough, prior stroke, irregular heart palpitations. No carcinoma history. Has had hepatitis in the past, difficulty walking and hiatal hernia. MEDICATIONS: She takes potassium, Protonix, magnesium and clonazepam. SOCIAL HISTORY: She is a nonsmoker. No alcohol use. PAST SURGICAL HISTORY: Include right hip surgery, left hip surgery, elbow surgery and lumbar spine surgery. ALLERGIES: IVP DYE, MORPHINE AND PERCOCET. REVIEW OF SYSTEMS: She denies any blurred vision, double vision, tinnitus or vertigo. She denies any chest pain or palpitations. She denies asthma, wheezing or shortness of breath. No nausea, vomiting, urgency, frequency or dysuria. She has some back lower extremity difficulty and inability to ambulate. OBJECTIVE: GENERAL: She is an alert and oriented young lady. She is 5 feet 7 inches. She is 118 pounds. She is in distress. VITAL SIGNS: Blood pressure 130/80, pulse 80. HEENT: Examination is essentially normal. Pupils react to light and accommodation. CARDIAC: Normal S1, S2. No S3. No palpitations. LUNGS: Clear to auscultation. ABDOMEN: Soft and nontender. EXTREMITIES: Intact x4. She has pain with flexion and extension of the spine. Has pain with percussion. Has some pain with straight leg raising on the right and also on the left. Has weakness with dorsiflexion and plantarflexion. Images were reviewed. IMPRESSION: Stenosis of lumbar spine L5-S1 and procedure includes laminectomy L5-S1 lumbar spine under general anesthetic.
[~2017-04-30] VITALS: Ht 167.6 cm; Wt 51.8 kg
[2017-04-30] VITALS (8 sets, daily range): BP systolic 96–142; BP diastolic 54–71; PULSE 56–68; TEMP 36.4–36.8; O2SAT 95–100; Ht 167.6 cm; Wt 51.8 kg
[~2017-04-30 05:15] MED LIST changes: -GABA1CAP4 PO; -HYDR-4383 PO; -HYDR4TAB78 PO; -MDRDP21 PO; -POTA550T4 PO; -TPRSR/25 PO; -ZLF/100 PO
[2017-04-30] MEDS ORDERED: TPRSR/25 PO (05:38)
[2017-04-30] MEDS: PATIENT'S HEIGHT AND/OR WEIGHT NEEDED SCH ×2 (05:53→09:51)
[2017-04-30] MEDS ORDERED: SODIUM CHLORIDE 0.9% 1000ML 1,000 ML IV SCH (06:00)
[2017-04-30] MEDS ORDERED: CEFAZOLIN 2000 MG/60 ML D5W IV SCH (06:00)
[2017-04-30] MEDS ORDERED: LACTATED RINGER'S 1000ML 1,000 ML IV SCH (06:00)
[2017-04-30] MEDS ORDERED: LIDOCAINE HCL 2% 2 ML VIAL (20MG/ML) ONE (06:40)
[2017-04-30] MEDS ORDERED: DEXAMETHASONE SOD INJ 4 MG/ML VIAL ONE (06:40)
[2017-04-30] MEDS ORDERED: FENTANYL CITRATE INJ 50 MCG/1 ML 2 ML VIAL ONE ×2 (06:40→08:33)
[2017-04-30] MEDS ORDERED: ONDANSETRON INJ 2 MG/ML 2 ML VIAL ONE ×2 (06:40→12:46)
[2017-04-30] MEDS ORDERED: PROPOFOL IV EMULSION 10 MG/ML 20 ML VIAL IV ONE (06:40)
[2017-04-30] MEDS ORDERED: THROMBIN FOR SOLN 20000 UNIT KIT ONE (07:04)
[2017-04-30] MEDS ORDERED: BACITRACIN 50000 UNIT VIAL ONE (07:04)
[2017-04-30] MEDS ORDERED: GELATIN SPONGE 12-7MM ONE (07:04)
[2017-04-30] MEDS ORDERED: BUPIVACAINE/EPINEPHRINE 0.5% MPF 1:200,000 30 ML VIAL ONE (07:04)
[2017-04-30] MEDS ORDERED: VANCOMYCIN HCL 1000MG/20ML VIAL ONE (07:05)
--- NOTE | 2017-04-30 07:23 | History & Physical Bridge Note ---
H&P Re-Evaluation Bridge Note: I have examined the patient, reviewed the History & Physical and in the interval since the performance of the History & Physical I have noted the following changes of clinical significance: No changes noted
[2017-04-30] MEDS ORDERED: ACETAMINOPHEN 1000 MG/100 ML IV IV ONE (08:28)
[2017-04-30] MEDS ORDERED: ONDANSETRON INJ 2 MG/ML 2 ML VIAL IV PRN ×2 (08:30→09:30)
[2017-04-30] MEDS ORDERED: PHENYLEPHRINE 100MCG/ML 5ML SYR IV PRN (08:30)
[2017-04-30] MEDS ORDERED: EpHEDrine SULFATE INJ 50 MG/ML AMP IV PRN (08:30)
[2017-04-30] MEDS ORDERED: HYDROmorphone INJ 2 MG/ML SYR/VIAL IV PRN (08:30)
[2017-04-30] MEDS ORDERED: ATROPINE SULFATE 0.1 MG/ML 5ML SYR IV PRN (08:30)
[2017-04-30] MEDS ORDERED: EpHEDrine SULFATE 50MG/5ML SYR ONE (08:54)
[2017-04-30] MEDS ORDERED: DURASEAL DURAL SEALANT 5ML TOP ONE (08:57)
--- NOTE | 2017-04-30 09:22 | [facility] Post Operative Brief Note ---
Immediate Operative Summary Operative Date Apr 30, 2017. Pre-Operative Diagnosis Stenosis of lumbar spine L5-S1, L4-5 Post-Operative Diagnosis Stenosis of lumbar spine L4-S1 Procedure(s) Performed L4-S1 Laminectomy Surgeon Dr. Kamran Peralta Psychology Assistant Surgeon(s) Foreign Williamson PA-C Estimated Blood Loss 100ml Findings severe stenosis Specimens None per surgeon Complication(s) None Disposition Recovery Room / PACU
[2017-04-30] MEDS ORDERED: LORAZEPAM INJ 1 MG in SYRINGE 0 ML IV PRN (09:30)
[2017-04-30] MEDS ORDERED: MAGNESIUM HYDROXIDE SUSP 30 ML UDC PO PRN (09:30)
[2017-04-30] MEDS ORDERED: METOCLOPRAMIDE HCL INJ 5 MG/ML 2 ML VIAL IV PRN (09:30)
[2017-04-30] MEDS ORDERED: HYDROCODONE/ACETAMOPHEN 5/325MG TAB PO PRN (09:30)
[2017-04-30] MEDS ORDERED: PROMETHAZINE HCL INJ 12.5 MG in SODIUM CHLORIDE 0.9% 50ML 50 ML IV PRN (09:30)
--- NOTE | 2017-04-30 09:56 | DIAGNOSTIC IMAGING REPORT ---
LUMBAR SPINE, INTRAOPERATIVE FLUOROSCOPY HISTORY: L5-S1 laminectomy.. FLUOROSCOPY TIME: 1.5 seconds. FINDINGS: Intraoperative fluoroscopy was provided for the lumbar spine. A single fluoroscopic spot image of the lower lumbar spine demonstrate surgical instruments posterior to the L4-S1 levels. A stimulator pack is partially visualized. IMPRESSION: Fluoroscopy provided for a L5-S1 laminectomy.. Electronically signed by: Alvaro De La Cruz M.D. 04/30/2017 9:55 AM Dictated Date/Time: 04/30/2017 9:54 AM
--- NOTE | 2017-04-30 10:09 | OPERATIVE REPORT ---
DATE OF OPERATION: 04/30/2017 PREOPERATIVE DIAGNOSIS: Stenosis L5-S1 lumbar spine. POSTOPERATIVE DIAGNOSIS: Stenosis lumbar spine L4-5 and L5-S1 lumbar spine. PROCEDURE: Lumbar laminectomy L4-5 and S1, foraminotomies, partial facetectomy, decompression of nerve roots, a 2 level procedure. BLOOD LOSS: 100 mL. SURGEON: Kamran Peralta DO. BEAM DYER RECESSED VAT: Foreign Williamson PA-C. COMPLICATIONS: Zero. ANESTHETIC: General. DESCRIPTION OF PROCEDURE: The patient was taken to the operating room, a general intubated anesthetic provided to the patient, placed prone. Fontaine catheter administered prior to turning. She was secured, we scrubbed her first with alcohol and prepped as well, draped her off sterile. We made a skin incision roughly from L3 to the sacrum dissecting the soft tissue, very, very carefully. She had prior lumbar spine surgeries. I was content we were able to get down to the dural structures favored the right hand side which is her more symptomatic side. We carefully removed the lamina and the facet and we were doing a partial facetectomy. I do not feel we destabilize the spine. I also ____ the left hand side careful foraminotomies, again partial facetectomies. The nerve roots were clear on vision and through palpation. We then began our closure. We irrigated thoroughly. We placed some DuraSeal over the dura Gelfoam over the dura, vancomycin powder, closed fascia to fascia in a watertight fashion using #1 Vicryl suture interrupted and continuous. A 2-0 in the subcuticular layer, 3-0 nylon on the skin. We anesthetized the area with Marcaine. Sterile dressings applied. The patient returned supine to PACU stable. Again, no apparent interoperative complications. Sponge and needle count correct at the close of the procedure. I attest to the content of the Intraoperative Record and any orders documented therein. Any exception s are noted below.
[2017-04-30] MEDS ORDERED: MIDAZOLAM HCL 1 MG/ML 2ML VIAL ONE (10:14)
[2017-04-30] MEDS ORDERED: HYDROmorphone INJ 1 MG/ML SYR ONE (10:57)
--- NOTE | 2017-04-30 11:42 | Anesthesiology Progress Note ---
Anesthesia Post Op Note Date & Time Apr 30, 2017 at 11:28 Vital Signs Pain Intensity: 5 Vital Signs Past 12 Hours Date Time Temp Pulse Resp B/P (MAP) Pulse Ox O2 Delivery O2 Flow Rate FiO2 04/30/17 09:27 36.5 76 16 147/69 100 Mask 10 04/30/17 05:39 36.8 56 18 112/71 (85) 95 Room Air Notes Mental Status: alert / awake / arousable, participated in evaluation Pt Amnestic to Procedure: Yes Nausea / Vomiting: adequately controlled Pain: adequately controlled Airway Patency, RR, SpO2: stable & adequate BP & HR: stable & adequate Hydration State: stable & adequate Anesthetic Complications: no major complications apparent Shortly after entering the PACU, the patient began rocking her head back and forth and moving her hands back and forth, not in a tonic-clonic fashion, but not purposeful either. It did not appear to be a seizure. She was not responsive to verbal stimuli at that time. Thinking that it could be central anticholinergic in nature she was given 1 mg of physostigmine which caused her to settle down for several minutes. I told her to open her eyes and she raised her eyebrows indicating she was trying to open her eyes but was just too sleepy. She was not post-ictal. She did have one other short episode of that activity a few minutes later, then it resolved. She gradually became fully conscious and the time of the sign-out she is wide awake, smiling and talking appropriately.
[2017-04-30] MEDS ORDERED: ROCURONIUM BROMIDE 10 MG/ML 5 ML VIAL IV ONE (13:13)
[2017-04-30] MEDS: SODIUM CHLORIDE 0.9% 1000ML 1,000 ML IV SCH (15:19)
[2017-04-30] MEDS ORDERED: IV FLUIDS COMPLETED PRN (16:15)
[2017-04-30] MEDS: CEFAZOLIN IV 1,000 MG in DEXTROSE 5% 50ML 50 ML IV SCH (16:23)
[2017-04-30] MEDS: LORAZEPAM 1 MG TAB PO PRN (17:02)
[2017-04-30] MEDS: ACETAMINOPHEN IV 1,000 MG in EMPTY BAG 0 ML IV SCH (21:08)
[2017-04-30] MEDS ORDERED: NURSING VERBAL MED ORDER ONE (22:00)
[2017-04-30] MEDS ORDERED: HYDROmorphone INJ 0.5 MG/0.5 ML SYR IV PRN (22:30)
[2017-04-30] MEDS: KETOROLAC TROMETHAMINE 15 MG/ML VIAL IV. SCH (23:04)
[2017-05-01] VITALS (7 sets, daily range): BP systolic 95–113; BP diastolic 52–63; PULSE 62–76; TEMP 36.4–36.8; O2SAT 93–99
[2017-05-01] MEDS: CEFAZOLIN IV 1,000 MG in DEXTROSE 5% 50ML 50 ML IV SCH ×2 (00:18→07:53)
[2017-05-01] MEDS: SODIUM CHLORIDE 0.9% 1000ML 1,000 ML IV SCH (03:55)
[2017-05-01] MEDS: ACETAMINOPHEN IV 1,000 MG in EMPTY BAG 0 ML IV SCH ×3 (03:56→20:58)
[2017-05-01] MEDS: KETOROLAC TROMETHAMINE 15 MG/ML VIAL IV. SCH ×4 (05:59→23:28)
[2017-05-01] MEDS ORDERED: BISACODYL 5 MG TABEC PO PRN (06:00)
[2017-05-01] MEDS ORDERED: BISACODYL 10 MG SUPP PR PRN (06:00)
[2017-05-01] MEDS ORDERED: NURSING DECISION MEDICATION ORDER SCH (06:30)
[2017-05-01] MEDS: POLYETHYLENE (MIRALAX) 17 GM PACK PO SCH (11:54)
--- NOTE | 2017-05-01 12:14 | Discharge Instructions ---
Discharge Instructions Date of Service May 01, 2017. Admission Reason for Admission: Nerve Root Irritation Discharge Discharge Diagnosis / Problem: 2 level spinal stenosis Discharge Goals Goal(s): Improve function Activity Recommendations Activity Limitations: as noted below Lifting Limitations: gradually increase as tolerated Exercise/Sports Limitations: until after follow-up appointment May Resume Sexual Activity: after follow-up appointment Shower/Bathe: keep incision dry . Instructions / Follow-Up Instructions / Follow-Up MEDICATIONS: Please take your prescriptions as instructed at your pre-op appointment. SPECIAL CARE: The following information is intended to answer some of the common questions and concerns regarding your surgery. Each patient is an individual and receives individual counselling throughout the course of treatment, from diagnosis to surgery all the way through recovery. What follows is not an exhaustive list, but should be a useful guide to some of the common questions and concerns patients have regarding their surgeries. These are not provided to keep you from calling us; rather, they give you something accurate and concrete to reference as you recover from your procedure. If you need us, we are available to you. As always, if you are not sure about something, call us at [phone]. MEDICAL EMERGENCIES: For these conditions, call 911 or go to your local hospital-based Emergency Department - not [facility] or equivalent. * Paralysis * Severe chest pain or difficulty breathing * Swelling or redness of either leg Spine procedures can be rather complex and though complications are rare, they do occur. In such cases, effective advice regarding emergency situations cannot always be addressed over the telephone. You may be referred to the emergency department for more effective management of your problem. Activity Limitations: It is important to give your body time to heal, so please limit your activities : * In general, don't do anything that moves your spine too much. You should avoid contact sports, twisting or heavy lifting while you recover. * 5-10 pounds is all you should attempt to lift. * You should not plan on driving for approximately 3 weeks and you should avoid traveling more than 30-45 minutes at a time. Longer trips should be broken down with walking breaks spaced appropriately. * Physical therapy is not usually required. * Walking and good posture practices will help you recover and regain your function. * Avoid straining or sudden changes in position. * In general, the goal is to take it easy and recover. Don't cause any new problems. Just relax. Showers: * Do not take a bath, use a Jacuzzi or hot tub or otherwise submerge your incision. * It is usually safe to take a shower 4-5 days after your surgery. * Your incision does not require any special creams or ointments. * Simply clean it with soap and water, dry and re-dress with a clean bandage afterwards. Incision: * Keep incision clean, dry and protected until your first follow-up appointment. * Some amount of drainage and redness is normal. Any drainage should be fairly clear and not have a foul odor. * If you feel anything is wrong or you have excessive drainage, please call us. * Your stitches and adrian will be removed 10-14 days after your surgery. At the time of your first post-op visit. * Neck surgeries are typically closed with a suture underneath the skin. The steri-strips over the incision should be maintained until we see you in the office. Bracing: * You may be provided with a back or neck brace to encourage good posture and prevent injury. It will remind you not to do too much as you heal and will alert others to the fact that you have had a surgery. * Back braces may be removed for showers and when you are resting at home. They must be worn when you are walking around for any period of time or for travel. * For neck surgery, you will likely be provided with two cervical collars. The soft collar ([place] or foam rubber) is worn most commonly throughout the day and while sleeping. The plastic collar (provided at the hospital) is for showering/bathing. * Except while eating, collars should remain in place. More specifically, bracing is provided for a purpose and should be worn. * Please obtain your brace or collars prior to your operation and bring them to the hospital with you on the day of surgery. * You should also bring your collars to your post-op appointment with Dr. Peralta. You should always take good care of your body and practice healthy habits, especially following surgery. You should: * Follow your doctor's treatment plan * Sit and stand properly with good posture (ears over shoulders, shoulders over hips) Don't slouch * Learn to lift correctly * Exercise regularly (low-impact aerobic exercise is especially good, but check with your doctor first) * Generally, be up and walking for 5-10 minutes at a time at least 3-4 times per day from the day you get home * Increasing walking to tolerance until you can walk for 20-30 minutes at a time * Attain and maintain a healthy body weight * Eat healthy foods ( a well-balanced, low-fat diet rich in fruits and vegetables) and get enough calcium * Avoid excessive use of alcohol When to call our office - If you notice any of the following: * Increased pain not relieve by pain medicine * Fevers greater then 100 degrees F, chills or flu symptoms * Increased redness around incision * Drainage from the incision that is not clear * Any foul smelling drainage * Swelling or fluid collection beneath the skin Miscellaneous: * In the hospital, you may be given a walker or cane for support while walking. These are temporary needs and are intended to prevent injuries due to falls. You may discontinue them when you feel strong and steady enough on your feet. * Sleep in a comfortable position. We find that many patients find a lounge chair or recliner with several pillows to be beneficial in the early post-operative period. * The support stockings should be used for 7-10 days and may be discontinued when you are back to walking more and conducting usual household activities. No problem is insignificant. We are here to help you and get you well. Contact us at [phone]. Definitions: Foraminotomy: If part of the disc or a bone spur (osteophyte) is pressing on a nerve as it leaves the vertebra (through an exit called the foramen), a foraminotomy may be done. Otomy means "to make an opening." A foraminotomy is making the opening of the foramen larger, so the nerve can exit without being compressed. Laminotomy: Similar to the foraminotomy, a laminotomy makes a larger opening, this time in your bony plate protecting your spinal canal and spinal cord (the lamina). The lamina may be pressing on your nerve, so the surgeon may make more room for the nerves using a laminotomy. Laminectomy: Sometimes, a laminotomy is not sufficient. The surgeon may need to remove all or part of the lamina. This procedure is called a laminectomy. This can often be done at many levels without any harmful effects. Current Hospital Diet Patient's current hospital diet: Regular Diet Discharge Diet Recommended Diet: Regular Diet Procedures Procedures Performed: L4-S1 Laminectomy Pending Studies Studies pending at discharge: no Medical Emergencies . Who to Call and When: Medical Emergencies: If at any time you feel your situation is an emergency, please call 911 immediately. . Non-Emergent Contact Non-Emergency issues call your: Surgeon . "Provider Documentation" section prepared by Kamran Peralta. . VTE Core Measure Inpt VTE Proph given/why not?: Treatment not indicated
--- NOTE | 2017-05-01 13:41 | Anesthesiology Progress Note ---
Anesthesia Post Op Note Date & Time May 01, 2017 at 13:40 Vital Signs Pain Intensity: 8.0 Vital Signs Past 12 Hours Date Time Temp Pulse Resp B/P (MAP) Pulse Ox O2 Delivery O2 Flow Rate FiO2 05/01/17 09:10 104/57 (73) 05/01/17 07:50 Room Air 05/01/17 07:23 36.4 62 20 101/59 (73) 93 Room Air 05/01/17 06:00 94 Room Air 05/01/17 03:43 36.8 71 18 95/53 (67) 98 Nasal Cannula 4.0 Notes Mental Status: alert / awake / arousable, participated in evaluation Pt Amnestic to Procedure: Yes Nausea / Vomiting: adequately controlled Pain: adequately controlled Airway Patency, RR, SpO2: stable & adequate BP & HR: stable & adequate Hydration State: stable & adequate Anesthetic Complications: no major complications apparent
[2017-05-01] MEDS ORDERED: PROMETHAZINE HCL INJ 12.5 MG in SODIUM CHLORIDE 0.9% 50ML 50 ML IV PRN (13:45)
[2017-05-01] MEDS ORDERED: HYDROmorphone INJ 1 MG/ML SYR IV PRN (13:45)
--- NOTE | 2017-05-01 17:09 | Orthopedic Progress Note ---
Orthopedic Progress Note Date of Service May 01, 2017. Subjective Post OP Day: 1 Reports: nausea / vomiting Additional Notes: SHE IS STILL IN A MODERATE AMOUNT OF DISCOMFORT. COMPLAINS OF TINGLING/ NUMBNESS IN HER LEGS WHICH IS SIMILAR TO PRE-OPERATIVELY. Objective A&O x3, toes mobile TAYA WAS LAYING IN BED AND WAS ALERT AND ORIENTED AND WAS IN NO APPARENT DISTRESS . BANDAGE WAS IN PLACE . THERE WERE NO SIGNS OF INFECTION, NO DRAINAGE. SHE WAS COMPLAINING OF SEVERE NAUSEA WHICH SHE HAS HAD SINCE APPROXIMATELY DECEMBER. SHE ALSO HAS PAIN SIMILAR TO PRE-OPERATIVELY. SHE HAS BEEN TAKING IV TYLENOL WITHOUT MUCH RELIEF. Date Time Temp Pulse Resp B/P (MAP) Pulse Ox O2 Delivery O2 Flow Rate FiO2 05/01/17 15:13 36.6 76 16 95/52 (66) 93 Room Air 05/01/17 14:15 96/55 (69) 05/01/17 09:10 104/57 (73) 05/01/17 07:50 Room Air 05/01/17 07:23 36.4 62 20 101/59 (73) 93 Room Air 05/01/17 06:00 94 Room Air 05/01/17 03:43 36.8 71 18 95/53 (67) 98 Nasal Cannula 4.0 05/01/17 00:15 Nasal Cannula 4.0 04/30/17 23:47 36.8 67 18 96/54 (68) 99 Nasal Cannula 4.0 04/30/17 19:32 36.4 59 18 142/71 (94) 100 Nasal Cannula 4.0 Assessment & Plan Plan: SHE WAS STILL IN A MODERATE AMOUNT OF PAIN. SHE HAS SEVERAL ALLERGIES TO MEDICATIONS INCLUDING NARCOTICS. SHE IS CURRENTLY TAKING 0.5MG OF DILAUDID Q3H PRN FOR PAIN. I AM GOING TO INCREASE HER DOSE TO 1.0MG Q2H PRN FOR PAIN. SHE IS ALSO HAVING NAUSEA. SHE HAS ZOFRAN PRESCRIBED AND DOES NOT FEEL THAT IT IS HELPING HER. I WILL ALSO WRITE FOR PHENERGAN 12.5MG TO TRY AND HELP WITH THE NAUSEA. PT AND OT WERE ORDERED TO GET HER AMBULATORY. SHE MAY INCREASE HER DIET TOLERATED. Inhouse Planning Pain Management: Dilaudid (INCREASE THE DOSE TO 1.0MG Q2H), IV Tylenol DVT Prophylaxis: Inge
[2017-05-01] MEDS: LORAZEPAM 1 MG TAB PO PRN (22:30)
[2017-05-02] VITALS: BP 113/63; PULSE 64; TEMP 36.7; O2SAT 99
[2017-05-02] MEDS: ACETAMINOPHEN IV 1,000 MG in EMPTY BAG 0 ML IV SCH (04:15)
[2017-05-02] MEDS: KETOROLAC TROMETHAMINE 15 MG/ML VIAL IV. SCH ×2 (06:00→07:45)
[2017-05-02 06:18] VITALS: BP 149/73; PULSE 73; TEMP 36.8; O2SAT 99
[2017-05-02] MEDS: POLYETHYLENE (MIRALAX) 17 GM PACK PO SCH (07:54)
--- NOTE | 2017-05-02 09:40 | DISCHARGE SUMMARY ---
DATE OF DISCHARGE: 05/02/2017 SUBJECTIVE: She is improved, stable. Minimal complaints, no back pain, no terrible radicular pain. No fevers, sweats or chills. OBJECTIVE: Vital signs stable. ASSESSMENT: Status post lumbar spine stenosis surgery, doing well in the short run. DISPOSITION: Will discharge her home later on this morning. She has prescription for Ultram at home. We should see her back in the office in 10 days. She was given instructions and precautions and warnings from the office and a duplicate here at the hospital. Please call if problems.
[2017-05-02 10:52] VITALS: TEMP 36.8; O2SAT 99
[2017-05-02 11:36] VITALS: BP 108/55; PULSE 80; O2SAT 99
[2017-05-05] MEDS ORDERED: HYDR-4383 PO (15:35)
[2017-05-05] MEDS ORDERED: MDRDP21 PO (15:35)
== END 2017-05-02 11:00 | disposition home or self-care (01) ==
LOC: C.ACU 05:15 → C.3E 09:26 → EDBEDREQ 11:18 → ENRESERV 13:17
PROVIDERS: ADMIT Orthopaedic Surgery Orthopaedic Surgery of the Spine; ATTEND Orthopaedic Surgery Orthopaedic Surgery of the Spine
DX: M48.07 Spinal stenosis, lumbosacral region (principal); Z86.73 Personal history of transient ischemic attack (TIA), and cerebral infarction without residual deficits; Z79.899 Other long term (current) drug therapy

== ENCOUNTER 2017-05-08 12:26 | Emergency (ER) | payer BC ==
[~2017-05-08] VITALS: Ht 167.6 cm; Wt 50.6 kg
[~2017-05-08 12:26] MED LIST changes: -GABA1CAP4 PO; -HYDR4TAB78 PO; -POTA550T4 PO; -ZLF/100 PO
[2017-05-08 12:30] VITALS: TEMP 36.7; Ht 167.6 cm; Wt 50.6 kg
[2017-05-08] MEDS ORDERED: ONDANSETRON INJ 2 MG/ML 2 ML VIAL IV STA (12:54)
--- NOTE | 2017-05-08 12:56 | EMERGENCY ROOM VISIT NOTE ---
History Report prepared by [place]: Daniel Dash Under the Supervision of: Dr. Rey Munguia D.O. First contact with patient: 12:48 Chief Complaint: NECK PAIN Stated Complaint: SOB History of Present Illness The patient is an 82 year old female who presents to the Emergency Room with complaints of persistent neck pain that started around a week ago. The patient says that neck pain is in the back. She notes that she had low back surgery 2 days after the pain started. The patient adds that she has been having a headache too, with persistent nausea and a few episodes of vomiting. The patient notes that her headache is worse with standing up. She states that she has had a bit of chest pain too, and she has been feeling exhausted. The patient denies any fevers or abdominal pain. She says that she saw Dr. Peralta of Orthopedics 2 hours ago, and was sent over for a CT, and had that done, but was then told to come here. She says that during her surgery, she was put to sleep. She did not take any pain medications today. Source of History: patient Onset: A week ago Position: neck (on back) Timing: other (persistent) Associated Symptoms: + headache (worse with standing), + chest pain, + nausea, + vomiting, + fatigue, No fevers, No abdominal pain Note: No other associated symptoms noted. Review of Systems See HPI for pertinent positives & negatives. A total of 10 systems reviewed and were otherwise negative. Past Medical & Surgical Medical Problems: (1) Anxiety (2) Deep venous thrombosis (3) Depression (4) Diverticulosis (5) Dyslipidemia (6) GERD (gastroesophageal reflux disease) (7) h/o Schatski's ring (8) H/O urticaria (9) H/O: CVA (cerebrovascular accident) (10) Hiatal hernia (11) History of peptic ulcer disease (12) Lumbar stenosis (13) Paroxysmal atrial fibrillation (14) Spondylolisthesis, lumbar region Surgical Problems: (1) H/O blepharoplasty (2) H/o cervical laminectomy (3) H/O elbow replacement (4) H/O esophagogastroduodenoscopy (5) H/O esophagogastroduodenoscopy (6) H/o excision radial head (7) H/O hernia repair (8) H/o paravaginal defect repair (9) H/o sacral nerve stimulator implant (10) H/o vesicourethropexy (11) H/O: hysterectomy (12) Hx of cholecystectomy (13) S/P appendectomy (14) S/P cataract surgery (15) S/P hip replacement Family History Omitted secondary to age Social History Smoking Status: Former Smoker Alcohol Use: none Drug Use: none Marital Status: Housing Status: lives with family Occupation Status: retired Current/Historical Medications Scheduled Azathioprine (Imuran), 50 MG PO HS Clonazepam (Klonopin), 0.5 MG PO HS Gabapentin (Gabapentin), 1 CAP PO BID Hydrocodone/Acetaminophen ([place] 10/325 Tab), 1-2 TAB PO Q4H Magnesium Oxide (Mg Supplement (Magnesium), 400 MG PO QAM Methylprednisolone (Methylprednisolone Dose P), 1 DOSE PO UD Metoprolol Succinate (Metoprolol Succinate ER), 25 MG PO NOON Pantoprazole (Protonix), 40 MG PO QAM Potassium Gluconate (Potassium Gluconate), 1 TAB PO QAM Probiotic Product (Trubiotics), 1 CAP PO QAM Sertraline HCl (Sertraline HCl), 1 TAB PO QAM Tramadol (Ultram), 50 MG PO HS Scheduled PRN Acetaminophen (Tylenol Arthritis Ext Rel), 1,300 MG PO Q8H PRN for Pain Hydromorphone Hcl (Dilaudid), 4 MG PO Q6H PRN for Pain Melatonin (Melatonin Maximum Strengt), 5 MG PO HS PRN for Sleep Allergies Coded Allergies: Iodinated Diagnostic Agents (Verified Allergy, Intermediate, Rash/Hives, ) Oxycodone (Verified Allergy, Intermediate, PERCOCET-ITCHING OF ARMS, SHOULDERS, 05/08/17) Chlorhexidine (Unverified Allergy, Unknown, RASH, 05/08/17) Corticosteroids (Verified Allergy, Unknown, STERIOD INJECTIONS - FLUSHING AND BLOTCHING REDNESS, 05/08/17) Dipyridamole (Verified Allergy, Unknown, reaction unknown, 05/08/17) Mepivacaine (Verified Allergy, Unknown, CAN'T REMEMBER?, 05/08/17) Morphine (Verified Allergy, Unknown, RASH, 05/08/17) Codeine (Verified Adverse Reaction, Mild, GI UPSET, 05/08/17) Fenoprofen (Verified Adverse Reaction, Unknown, NALFON-HEPATITIS, CAN TAKE MOTRIN, 05/08/17) Physical Exam Vital Signs Date Time Temp Pulse Resp B/P (MAP) Pulse Ox O2 Delivery O2 Flow Rate FiO2 05/08/17 16:00 52 16 121/62 96 Room Air 05/08/17 15:00 50 10 136/69 96 Nasal Cannula 2.0 05/08/17 14:12 49 15 141/72 99 Nasal Cannula 2.0 05/08/17 13:33 93 Room Air 05/08/17 13:15 49 05/08/17 13:12 48 18 143/70 99 Room Air 05/08/17 12:30 36.7 46 18 163/56 98 Room Air Physical Exam GENERAL: Patient is awake, alert, very uncomfortable appearing. EYES: Pupils were constricted but reactive to light bilaterally. EARS, NOSE, MOUTH AND THROAT: The nose is without any evidence of any deformity. Mucous membranes are moist tongue is midline NECK: No anterior tenderness appreciated. Trachea was midline. Upper midline cervical tenderness to palpation but no stepoff. RESPIRATORY: Normal respiratory effort is noted there is no evidence of wheezing rhonchi or rales CARDIOVASCULAR: Regular rate and rhythm noted there no murmurs rubs or gallops normal S1 normal S2 GASTROINTESTINAL: The abdomen is soft. Bowel sounds are present in all quadrants. Abdomen is nontender BACK: Post-operative site noted in low lumbar spine, no erythema, swelling, or dehiscence noted. MUSCULOSKELETAL/EXTREMITIES: There is no evidence of gross deformity full range of motion is noted in the hips and shoulders SKIN: There is no obvious evidence of any rash. There are no petechiae, pallor or cyanosis noted. NEUROLOGIC: Patient is awake alert and oriented x3. Patellar tendon reflexes were 2+ bilaterally. Medical Decision & Procedures ER Provider Diagnostic Interpretation: Radiology results as stated below per my review and radiologist interpretation: CT HEAD WITHOUT CONTRAST (CT) CLINICAL HISTORY: Severe headache and neck pain COMPARISON STUDY: 12/12/2015 TECHNIQUE: Axial CT of the brain is performed from the vertex to the skull base. IV contrast was not administered for this examination. A dose lowering technique was utilized adhering to the principles of ALARA. CT DOSE: 537.48 mGy.cm FINDINGS: No intra or extra-axial mass lesions are visualized. There is no CT evidence of acute cortical infarction. There is no evidence of midline shift. There is no acute hemorrhage. No calvarial fractures are visualized. There are minimal white matter hypodensities likely on a small vessel basis. There is no evidence of pathologic ventricular dilatation. There is no evidence of acute sinusitis IMPRESSION: No acute intracranial findings Electronically signed by: Raffaele Scott M.D. 05/08/2017 3:16 PM Dictated Date/Time: 05/08/2017 3:15 PM CHEST ONE VIEW PORTABLE CLINICAL HISTORY: Atypical chest pain COMPARISON STUDY: 12/26/2016 FINDINGS: The cardiac and mediastinal contours are normal. There is no evidence of focal pulmonary consolidation. There is no evidence of failure. No pleural effusions are visualized.[ Postsurgical changes are present within the cervical spine. A spinal stimulator electrode is visualized. IMPRESSION: No active disease in the chest. Electronically signed by: Raffaele Scott M.D. 05/08/2017 1:53 PM Dictated Date/Time: 05/08/2017 1:52 PM Laboratory Results 05/08/17 13:18 Red Blood Count 3.39, Mean Corpuscular Volume 92.9, Mean Corpuscular Hemoglobin 30.7, Mean Corpuscular Hemoglobin Concent 33.0, Mean Platelet Volume 9.9, Neutrophils (%) (Auto) 74.1, Lymphocytes (%) (Auto) 13.1, Monocytes (%) (Auto) 12.3, Eosinophils (%) (Auto) 0.2, Basophils (%) (Auto) 0.1, Neutrophils # (Auto ) 6.18, Lymphocytes # (Auto) 1.09, Monocytes # (Auto) 1.03, Eosinophils # (Auto ) 0.02, Basophils # (Auto) 0.01 05/08/17 13:18 Test 05/08/17 13:18 05/08/17 14:00 White Blood Count 8.35 K/uL (4.8-10.8) Red Blood Count 3.39 M/uL (4.2-5.4) Hemoglobin 10.4 g/dL (12.0-16.0) Hematocrit 31.5 % (37-47) Mean Corpuscular Volume 92.9 fL (80-100) Mean Corpuscular Hemoglobin 30.7 pg (25-34) Mean Corpuscular Hemoglobin Concent 33.0 g/dl (32-36) Platelet Count 278 K/uL (130-400) Mean Platelet Volume 9.9 fL (7.4-10.4) Neutrophils (%) (Auto) 74.1 % Lymphocytes (%) (Auto) 13.1 % Monocytes (%) (Auto) 12.3 % Eosinophils (%) (Auto) 0.2 % Basophils (%) (Auto) 0.1 % Neutrophils # (Auto) 6.18 K/uL (1.4-6.5) Lymphocytes # (Auto) 1.09 K/uL (1.2-3.4) Monocytes # (Auto) 1.03 K/uL (0.11-0.59) Eosinophils # (Auto) 0.02 K/uL (0-0.5) Basophils # (Auto) 0.01 K/uL (0-0.2) RDW Standard Deviation 53.3 fL (36.4-46.3) RDW Coefficient of Variation 15.8 % (11.5-14.5) Immature Granulocyte % (Auto) 0.2 % Immature Granulocyte # (Auto) 0.02 K/uL (0.00-0.02) Prothrombin Time 10.8 SECONDS (9.0-12.0) Prothromb Time International Ratio 1.0 (0.9-1.1) Activated Partial Thromboplast Time 23.6 SECONDS (21.0-31.0) Partial Thromboplastin Ratio 0.9 Anion Gap 7.0 mmol/L (3-11) Est Creatinine Clear Calc Drug Dose 55.9 ml/min Estimated GFR () 97.3 Estimated GFR (Non- 84.0 BUN/Creatinine Ratio 24.5 (10-20) Calcium Level 9.2 mg/dl (8.5-10.1) Magnesium Level 2.3 mg/dl (1.8-2.4) Total Bilirubin 0.3 mg/dl (0.2-1) Direct Bilirubin < 0.1 mg/dl (0-0.2) Aspartate Amino Transf (AST/SGOT) 9 U/L (15-37) Alanine Aminotransferase (ALT/SGPT) 16 U/L (12-78) Alkaline Phosphatase 111 U/L (45-117) Total Creatine Kinase 36 U/L (26-192) Creatine Kinase MB 1.3 ng/ml (0.5-3.6) Creatine Kinase MB Ratio 3.6 (0-3.0) Troponin I < 0.015 ng/ml (0-0.045) Total Protein 7.5 gm/dl (6.4-8.2) Albumin 3.4 gm/dl (3.4-5.0) Lipase 230 U/L (73-393) Urine Color YELLOW Urine Appearance CLEAR (CLEAR) Urine pH 7.5 (4.5-7.5) Urine Specific [place] 1.017 (1.000-1.030) Urine Protein NEG (NEG) Urine Glucose (UA) NEG (NEG) Urine Ketones NEG (NEG) Urine Occult Blood 1+ (NEG) Urine Nitrite NEG (NEG) Urine Bilirubin NEG (NEG) Urine Urobilinogen NEG (NEG) Urine Leukocyte Esterase NEG (NEG) Urine WBC (Auto) 1-5 /hpf (0-5) Urine RBC (Auto) 10-30 /hpf (0-4) Urine Hyaline Casts (Auto) 0 /lpf (0-5) Urine Epithelial Cells (Auto) 5-10 /lpf (0-5) Urine Bacteria (Auto) NEG (NEG) Laboratory results per my review. Medications Administered Medications (Trade) Dose Ordered Sig/Kelse[place] Route Start Time Stop Time Status Last Admin Dose Admin Fentanyl Citrate (Fentanyl Inj) 50 mcg Q20M PRN IV 05/08/17 13:00 05/08/17 17:13 DC 05/08/17 14:13 50 MCG Ondansetron HCl (Zofran Inj) 4 mg NOW STAT IV 05/08/17 12:54 05/08/17 12:56 DC 05/08/17 13:19 4 MG ECG Indication: chest pain Rate (beats per minute): 48 Rhythm: sinus bradycardia Findings: no ectopy, other (no acute ST segment abnormalities) Comparison ECG Date: decreased rate otherwise no significant change from ED Course 1249: The patient was evaluated in room C1B. A complete history and physical examination were performed. 1254: Ordered Zofran Inj 4 mg IV. 1300: Ordered Fentanyl Inj 50 mcg IV PRN. 1626: Upon reevaluation, the patient is resting comfortably. I discussed the results and treatment plan with her. She verbalized agreement of the treatment plan. She was discharged home. Medical Decision Differential diagnosis: Etiologies such as migraine headache, meningitis, sinusitis, CO exposure, ICH, SAH, infection, tumor, headache, sinus thrombosis, arterial dissection, as well as others were entertained. Nursing notes reviewed. Additional history is obtained from the patient's family members. The patient is an 82-year-old female who presented to the emergency department for an evaluation of neck pain and headache. The patient recently had surgery on her low back. She does not have significant back pain and states that her pain in her back appears to be improving significantly since her surgery. She states that she started having neck pain and headache recently. It sounds as though she does have a history of similar pain in the past but this is somewhat worsened compared to previous. The patient was sent to the emergency department after she had a neck CT and was thought to have difficulty breathing. The patient states that she does not have any difficulty breathing at this time. She was noted to have prescriptions for significant pain medication from her spinal specialist. She was treated with IV pain medicine and IV antiemetics in the emergency department. I discussed the patient's laboratory and radiographic studies with her and her family members. She was feeling much better on subsequent reevaluation. She was able to be discharged to home. I explained that I think she should take caution using the pain medication was written for her. I feel that this is a very strong dose and I explained to her and her family that they should be very cautious and monitor her for any signs of respiratory depression while taking this medication. The patient states that she 's taking medications for pain in the past and does not feel that this will be an issue. She was encouraged to return to the emergency department immediately if symptoms change worsen or need arises. Medication Reconcilliation Current Medication List: was personally reviewed by me Blood Pressure Screening Patient's blood pressure: Elevated blood pressure Blood pressure disposition: Elevated BP felt to be situational Impression Primary Impression: Headache Additional Impressions: Neck pain Post-op pain Scribe Attestation The scribe's documentation has been prepared under my direction and personally reviewed by me in its entirety. I confirm that the note above accurately reflects all work, treatment, procedures, and medical decision making performed by me. Departure Information Dispostion Home / Self-Care Referrals Richa Mejia M.D. (PCP) Forms HOME CARE DOCUMENTATION FORM, IMPORTANT VISIT INFORMATION, WORK / SCHOOL INSTRUCTIONS Patient Instructions Headache Pain, My [facility] Additional Instructions Continue all medications as prescribed all up with your primary care physician as well as your orthopedic surgeon for follow-up appointment. Be cautious when you take your pain medication. Return to the emergency Department immediately if symptoms change worsen or the need arises. Problem Qualifiers Primary Impression: Headache Headache type: unspecified Headache chronicity pattern: acute headache Intractability: not intractable Qualified Codes: R51 - Headache
[2017-05-08] MEDS: FENTANYL CITRATE INJ 50 MCG/1 ML 2 ML VIAL IV PRN ×2 (13:18→14:13)
[2017-05-08 13:33] VITALS: O2SAT 93
[2017-05-08 13:33] LABS: BASO % 0.1 %; BASO ABS # 0.01 K/uL (0-0.2); COMPLETE YES; EOS % 0.2 %; HEMATOCRIT 31.5 % (37-47); IG% 0.2 %; LYMPH % 13.1 %; LYMPH ABS # 1.09 K/uL (1.2-3.4); MEAN CELL VOLUME 92.9 fL (80-100); MEAN CORPUSCULAR HEMOGLOBIN 30.7 pg (25-34); MEAN PLATELET VOLUME 9.9 fL (7.4-10.4); MONO % 12.3 %; NEUT % 74.1 %; PLATELET COUNT 278 K/uL (130-400); RED BLOOD COUNT 3.39 M/uL (4.2-5.4); WHITE BLOOD COUNT 8.35 K/uL (4.8-10.8)
[2017-05-08 13:45] LABS: PARTIAL THROMBOPLASTIN RATIO 0.9; PROTHROMBIN TIME (PATIENT) 10.8 SECONDS (9.0-12.0)
--- NOTE | 2017-05-08 13:54 | DIAGNOSTIC IMAGING REPORT ---
CHEST ONE VIEW PORTABLE CLINICAL HISTORY: Atypical chest pain COMPARISON STUDY: 12/26/2016 FINDINGS: The cardiac and mediastinal contours are normal. There is no evidence of focal pulmonary consolidation. There is no evidence of failure. No pleural effusions are visualized.[ Postsurgical changes are present within the cervical spine. A spinal stimulator electrode is visualized. IMPRESSION: No active disease in the chest. Electronically signed by: Raffaele Scott M.D. 05/08/2017 1:53 PM Dictated Date/Time: 05/08/2017 1:52 PM
[2017-05-08 13:58] LABS: ALT/SGPT 16 U/L (12-78); BLOOD UREA NITROGEN 15 mg/dl (7-18); BUN/CREATININE RATIO 24.5 (10-20); CALCIUM 9.2 mg/dl (8.5-10.1); CARBON DIOXIDE 27 mmol/L (21-32); CHLORIDE 105 mmol/L (98-107); CREATININE 0.62 mg/dl (0.60-1.20); GLUCOSE 98 mg/dl (70-99); MAGNESIUM 2.3 mg/dl (1.8-2.4); POTASSIUM 3.4 mmol/L (3.5-5.1); SODIUM 139 mmol/L (136-145)
[2017-05-08 14:07] LABS: ALKALINE PHOSPHATASE 111 U/L (45-117); AST/SGOT 9 U/L (15-37); CKMB/CK RATIO 3.6 (0-3.0)
--- NOTE | 2017-05-08 15:17 | DIAGNOSTIC IMAGING REPORT ---
CT HEAD WITHOUT CONTRAST (CT) CLINICAL HISTORY: Severe headache and neck pain COMPARISON STUDY: 12/12/2015 TECHNIQUE: Axial CT of the brain is performed from the vertex to the skull base. IV contrast was not administered for this examination. A dose lowering technique was utilized adhering to the principles of ALARA. CT DOSE: 537.48 mGy.cm FINDINGS: No intra or extra-axial mass lesions are visualized. There is no CT evidence of acute cortical infarction. There is no evidence of midline shift. There is no acute hemorrhage. No calvarial fractures are visualized. There are minimal white matter hypodensities likely on a small vessel basis. There is no evidence of pathologic ventricular dilatation. There is no evidence of acute sinusitis IMPRESSION: No acute intracranial findings Electronically signed by: Raffaele Scott M.D. 05/08/2017 3:16 PM Dictated Date/Time: 05/08/2017 3:15 PM
[2017-05-08] MEDS ORDERED: ZLF/100 PO (15:35)
[2017-05-08] MEDS ORDERED: HYDR4TAB78 PO (15:35)
[2017-05-08] MEDS ORDERED: GABA1CAP4 PO (15:35)
[2017-05-08] MEDS ORDERED: POTA550T4 PO (15:35)
[2017-05-08 16:00] VITALS: BP 121/62; PULSE 52; O2SAT 96
[2017-05-08 16:00] LABS: URINE APPEARANCE CLEAR (CLEAR); URINE BILIRUBIN NEG (NEG); URINE COLOR YELLOW; URINE NITRITE NEG (NEG); URINE PH 7.5 (4.5-7.5); URINE SPECIFIC GRAVITY 1.017 (1.000-1.030); UROBILINOGEN NEG (NEG)
[2017-05-08 16:05] LABS: MANUAL MICROSCOPIC REQUIRED? NO; REVIEW REQ? NO
== END 2017-05-08 16:30 | disposition home or self-care (01) ==
LOC: EDBD 12:26 → C.EDC 12:27
DX: R51 Headache (principal); M54.2 Cervicalgia; G89.18 Other acute postprocedural pain; F41.9 Anxiety disorder, unspecified; F32.9 Major depressive disorder, single episode, unspecified; E78.5 Hyperlipidemia, unspecified; K21.9 Gastro-esophageal reflux disease without esophagitis; K57.90 Diverticulosis of intestine, part unspecified, without perforation or abscess without bleeding; M48.06 Spinal stenosis, lumbar region; I48.91 Unspecified atrial fibrillation; M43.16 Spondylolisthesis, lumbar region; Z86.718 Personal history of other venous thrombosis and embolism; Z96.629 Presence of unspecified artificial elbow joint; Z90.710 Acquired absence of both cervix and uterus; Z96.649 Presence of unspecified artificial hip joint; Z87.891 Personal history of nicotine dependence; S13.100D Subluxation of unspecified cervical vertebrae, subsequent encounter; X58.XXXD Exposure to other specified factors, subsequent encounter; Z98.1 Arthrodesis status

== ENCOUNTER → 2017-05-08 | Outpatient (CLI) | payer BC ==
[~2017-05-08] MED LIST changes: +GABA1CAP4 PO; +HYDR-4383 PO; +HYDR4TAB78 PO; +MDRDP21 PO; +POTA550T4 PO; +TPRSR/25 PO; +ZLF/100 PO
--- NOTE | 2017-05-08 12:14 | DIAGNOSTIC IMAGING REPORT ---
CT OF THE CERVICAL SPINE WITHOUT CONTRAST CLINICAL HISTORY: Neck pain. Subluxation C5-T1. COMPARISON STUDY: Cervical spine CT August 12, 2016. TECHNIQUE: Helical axial images of the cervical spine were obtained without IV contrast. Sagittal and coronal reconstructions were viewed. A dose lowering technique was utilized adhering to the principles of ALARA. FINDINGS: There are findings consistent with a C4-C7 anterior discectomy and fusion. There are 2 screws within the C4 and C7 vertebral bodies. The hardware is intact. No acute cervical spine fracture is identified. 3 mm anterolisthesis of C3 on C4, 2 mm anterolisthesis of C4 on C5 and 3 mm anterolisthesis of T2 on T3 is unchanged from prior exams. Alignment is unchanged. There is no prevertebral edema. There are no unexpected radiopaque foreign bodies. Central canal and neural foramen are suboptimally assessed by CT but there is no evidence for significant central canal stenosis. There is no abnormality of the paravertebral soft tissues. IMPRESSION: 1. No acute cervical spine fracture or subluxation. 2. Status post C4-C7 anterior discectomy and fusion. Stable postoperative appearance since prior exam. 3. No change in mild anterolisthesis of C3 on C4 and C4 on C5 and T2 on T3. Electronically signed by: Khai Pichardo M.D. 05/08/2017 12:13 PM Dictated Date/Time: 05/08/2017 12:00 PM
== END | disposition home or self-care (01) ==
LOC: C.CTS 11:38
PROVIDERS: ATTEND Orthopaedic Surgery Orthopaedic Surgery of the Spine
DX: M54.2 Cervicalgia (principal); S13.100D Subluxation of unspecified cervical vertebrae, subsequent encounter; X58.XXXD Exposure to other specified factors, subsequent encounter; Z98.1 Arthrodesis status

== ENCOUNTER 2017-08-25 16:56 | Observation (INO) | payer BC ==
[~2017-08-25] VITALS: Ht 167.6 cm; Wt 55.2 kg
[~2017-08-25 16:56] MED LIST changes: +GABA1CAP4 PO; +HYDR4TAB78 PO; +POTA550T4 PO; -POTA99TA PO; -SERT50TA PO; +ZLF/100 PO
[2017-08-25] MEDS ORDERED: SODIUM CHLORIDE 0.9% 1000ML 1,000 ML IV ONE (17:07)
[2017-08-25] MEDS ORDERED: ONDANSETRON INJ 2 MG/ML 2 ML VIAL ONE (17:13)
[2017-08-25] MEDS: HYDROmorphone INJ 0.5 MG/0.5 ML SYR IV PRN ×3 (17:16→18:04)
[2017-08-25 17:19] LABS: BASO % 0.4 %; BASO ABS # 0.03 K/uL (0-0.2); EOS % 1.3 %; EOS ABS # 0.09 K/uL (0-0.5); HEMATOCRIT 32.1 % (37-47); HEMOGLOBIN 10.8 g/dL (12.0-16.0); IG# 0.01 K/uL (0.00-0.02); LYMPH ABS # 1.64 K/uL (1.2-3.4); MEAN CELL VOLUME 89.7 fL (80-100); MEAN CORPUSCULAR HEMOGLOBIN 30.2 pg (25-34); MEAN CORPUSCULAR HGB CONC 33.6 g/dl (32-36); MEAN PLATELET VOLUME 9.3 fL (7.4-10.4); MONO % 12.1 %; MONO ABS # 0.83 K/uL (0.11-0.59); NEUT % 62.1 %; NEUT ABS # 4.24 K/uL (1.4-6.5); PLATELET COUNT 243 K/uL (130-400); RED CELL DISTRIBUTION WIDTH CV 15.3 % (11.5-14.5); RED CELL DISTRIBUTION WIDTH SD 50.2 fL (36.4-46.3); WHITE BLOOD COUNT 6.84 K/uL (4.8-10.8)
[2017-08-25 17:31] LABS: PTT PATIENT 25.9 SECONDS (21.0-31.0)
[2017-08-25 17:35] LABS: CALCIUM 9.3 mg/dl (8.5-10.1); CREATININE 0.8 mg/dl (0.60-1.20); POTASSIUM 3.8 mmol/L (3.5-5.1)
--- NOTE | 2017-08-25 17:46 | DIAGNOSTIC IMAGING REPORT ---
CHEST ONE VIEW PORTABLE CLINICAL HISTORY: Left hip pain COMPARISON STUDY: 05/06/2017 FINDINGS: The cardiac and mediastinal contours remain stable. There is slight basilar interstitial thickening, a finding which may be accentuated by the AP supine technique. There are postsurgical changes in the cervical spine. A spinal electrode is visualized. There is no lobar consolidation.[ There is an old proximal left humeral fracture. IMPRESSION: AP portable study. Minor basilar interstitial thickening. Electronically signed by: Raffaele Scott M.D. 08/25/2017 5:44 PM Dictated Date/Time: 08/25/2017 5:43 PM
--- NOTE | 2017-08-25 17:47 | DIAGNOSTIC IMAGING REPORT ---
AP PELVIS AND LEFT HIP 3 VIEWS CLINICAL HISTORY: Left hip pain COMPARISON STUDY: No previous studies for comparison. FINDINGS: There are bilateral total hip arthroplasties. No acute fractures or dislocations are visualized. There is soft tissue swelling centered on the greater trochanter the left hip. IMPRESSION: 1. Soft tissue swelling centered on the greater trochanter the left hip 2. No acute fractures or dislocations identified 3. Bilateral total hip arthroplasties Electronically signed by: Raffaele Scott M.D. 08/25/2017 5:45 PM Dictated Date/Time: 08/25/2017 5:44 PM
[2017-08-25] MEDS ORDERED: ONDANSETRON INJ 2 MG/ML 2 ML VIAL IV STA (18:02)
[2017-08-25] MEDS ORDERED: NAPR1TAB9 PO (18:45)
[2017-08-25] MEDS ORDERED: ACET-1256 PO (18:45)
[2017-08-25] MEDS ORDERED: POLY335019 PO (18:45)
[2017-08-25] MEDS ORDERED: POTA99TA PO (18:45)
[2017-08-25] MEDS ORDERED: METO25TA3 PO (18:45)
[2017-08-25] MEDS ORDERED: CALC-214 PO (18:45)
[2017-08-25] MEDS ORDERED: ZFRODT4HP PO (18:50)
[2017-08-25] MEDS ORDERED: ACETAMINOPHEN 325 MG TAB PO PRN (20:00)
[2017-08-25] MEDS ORDERED: ONDANSETRON INJ 2 MG/ML 2 ML VIAL IV PRN (20:00)
[2017-08-25] MEDS ORDERED: MIRT15TA3 PO (20:03)
[2017-08-25] MEDS ORDERED: ACET650T9 PO (20:03)
--- NOTE | 2017-08-25 20:09 | History and Physical ---
History & Physical Date & Time of Service: Aug 25, 2017 at 20:06 Chief Complaint: Left Hip Pain Primary Care Physician: Richa Mejia M.D. History of Present Illness Source: patient, family (daughter at bedside), clinic records, hospital records This is an 82yo F with a PMH of bilateral hip replacements in 2013, back surgery in [address] Peralta, anxiety, depression, nocturnal hypoxemia, h/o CVA in 2012 per patient, autoimmune hepatitis and other medical problems listed below who presents with left hip pain that started last night. Patient was working in laundry room when she made a sudden movement and felt a sting on the outside of her L hip. Is unclear about what exactly she was doing at the time that would clarify the mechanism of injury. Patient ambulates with cane and was able to doing light housework for the rest of the night. Awoke during the night with worsening pain and was unable to ambulate by early afternoon today. Tried doing PT exercises but was in too much pain. Called Dr. Peralta's office but was encouraged to come to ED for further evaluation. After back surgeries in 2017, patient started to attend out-patient PT to help with gait stabilization and conditioning. States that she has made a lot of progress but is continuing to work at becoming "less wobbly" with ambulation. Denies fever, chills, CP, SOB, abd pain, nausea, vomiting, dysuria, diarrhea or constipation. Denies any numbness, tingling or weakness in extremities. Left hip pain is significantly reduced after pain medication given in ED. Past Medical/Surgical History Medical Problems: (1) Anxiety Status: Chronic (2) Deep venous thrombosis Status: Chronic (3) Depression Status: Chronic (4) Diverticulosis Status: Chronic (5) Dyslipidemia Status: Chronic (6) GERD (gastroesophageal reflux disease) Status: Chronic (7) h/o Schatski's ring Status: Chronic (8) H/O urticaria Status: Chronic (9) H/O: CVA (cerebrovascular accident) Permanent Comment: 2011 per patient Status: Chronic (10) Hiatal hernia Status: Chronic (11) History of peptic ulcer disease Status: Chronic (12) Paroxysmal atrial fibrillation Status: Chronic Surgical Problems: (1) H/O blepharoplasty Status: Chronic (2) H/o cervical laminectomy Status: Chronic (3) H/O elbow replacement Status: Resolved (4) H/O esophagogastroduodenoscopy Status: Chronic (5) H/O esophagogastroduodenoscopy Permanent Comment: 08/06/15- Schatzki's ring, small hiatal hernia, gastritis Status: Chronic (6) H/o excision radial head Status: Chronic (7) H/O hernia repair Medical Problems: (1) Anxiety Status: Chronic (2) Deep venous thrombosis Status: Chronic (3) Depression Status: Chronic (4) Diverticulosis Status: Chronic (5) Dyslipidemia Status: Chronic (6) GERD (gastroesophageal reflux disease) Status: Chronic (7) h/o Schatski's ring Status: Chronic (8) H/O: CVA (cerebrovascular accident) Permanent Comment: 2012 per patient Status: Chronic (9) Hiatal hernia Status: Chronic (10) History of peptic ulcer disease Status: Chronic (11) Paroxysmal atrial fibrillation Status: Chronic (12) Spondylolisthesis, lumbar region Status: Chronic Surgical Problems: (1) H/O blepharoplasty Status: Chronic (2) H/o cervical laminectomy Status: Chronic (3) H/O elbow replacement Status: Resolved (4) H/O esophagogastroduodenoscopy Status: Chronic (5) H/O esophagogastroduodenoscopy Permanent Comment: 08/06/15- Schatzki's ring, small hiatal hernia, gastritis Status: Chronic (6) H/o excision radial head Status: Chronic (7) H/O hernia repair Status: Chronic (8) H/o paravaginal defect repair Status: Chronic (9) H/o sacral nerve stimulator implant Status: Chronic (10) H/o vesicourethropexy Status: Chronic (11) H/O: hysterectomy Status: Resolved (12) Hx of cholecystectomy Status: Resolved (13) S/P appendectomy Status: Resolved (14) S/P cataract surgery Status: Chronic (15) S/P hip replacement Permanent Comment: bilateral Status: Chronic Family History Omitted secondary to age Social History Smoking Status: Never Smoker Alcohol Use: occasionally Drug Use: none Marital Status: Housing status: lives alone Occupational Status: retired Immunizations History of Influenza Vaccine: No History of Tetanus Vaccine?: No History of Pneumococcal: No History of Hepatitis B Vaccine: No Multi-Drug Resistant Organisms History of MDRO: No Allergies Coded Allergies: Duloxetine (Verified Allergy, Severe, SEDATION & BAD DREAMS, 08/25/17) Iodinated Diagnostic Agents (Verified Allergy, Intermediate, Rash/Hives, ) Oxycodone (Verified Allergy, Intermediate, PERCOCET-ITCHING OF ARMS, SHOULDERS, 05/08/17) Chlorhexidine (Unverified Allergy, Unknown, RASH, 05/08/17) Corticosteroids (Verified Allergy, Unknown, STERIOD INJECTIONS - FLUSHING AND BLOTCHING REDNESS, 05/08/17) Dipyridamole (Verified Allergy, Unknown, reaction unknown, 05/08/17) Mepivacaine (Verified Allergy, Unknown, CAN'T REMEMBER?, 05/08/17) Morphine (Verified Allergy, Unknown, RASH, 05/08/17) Shellfish (Verified Allergy, Unknown, RASH, 08/25/17) Tetracycline (Verified Allergy, Unknown, RASH, 08/25/17) Codeine (Verified Adverse Reaction, Mild, GI UPSET, 05/08/17) Fenoprofen (Verified Adverse Reaction, Unknown, NALFON-HEPATITIS, CAN TAKE MOTRIN, 05/08/17) Home Medications Scheduled Azathioprine (Imuran), 1 TAB PO HS Calcium W/ Magnesium (Calcium & Magnesium), 1 TAB PO DAILY Clonazepam (Klonopin), 0.5 MG PO HS Mirtazapine (Remeron), 1 TAB PO HS Pantoprazole (Protonix), 40 MG PO QAM Probiotic Product (Trubiotics), 1 CAP PO QAM Sertraline HCl (Sertraline HCl), 1 TAB PO QAM Scheduled PRN Acetaminophen (Acetaminophen ER), 1 TAB PO Q8 PRN for Pain Tramadol (Ultram), 50 MG PO Q8H PRN for Pain Review of Systems Ten systems reviewed and negative except as noted in the HPI. Physical Exam Vital Signs Date Time Temp Pulse Resp B/P (MAP) Pulse Ox O2 Delivery O2 Flow Rate FiO2 08/25/17 18:25 74 20 155/79 95 Room Air 08/25/17 17:38 71 08/25/17 17:00 36.8 74 22 151/81 95 Room Air General Appearance: no apparent distress, + thin, + pertinent finding (Resting comfortably, conversational. ) Head: normocephalic, atraumatic Eyes: normal inspection, PERRL, sclerae normal ENT: normal ENT inspection, hearing grossly normal, pharynx normal (moist mucous membranes ) Neck: supple, thyroid normal, trachea midline Respiratory/Chest: chest non-tender, lungs clear, normal breath sounds, no respiratory distress, no accessory muscle use Cardiovascular: regular rate, rhythm, no edema, no murmur, normal peripheral pulses Abdomen/GI: non tender, soft, no organomegaly Extremities/Musculoskelatal: no calf tenderness, normal capillary refill, no pedal edema, + pertinent finding (Edema overlying L hip at greater trochanter. No bruising visualized. ROM limited by pain. MOUSTAPHA intact. Deferred ambulation 2/ 2 pain.) Neurologic/Psych: no motor/sensory deficits, alert, normal mood/affect, oriented x 3 Skin: normal color, warm/dry Diagnostics Laboratory Results Results Past 24 Hours Test 08/25/17 17:07 08/25/17 18:13 Range/Units White Blood Count 6.84 4.8-10.8 K/uL Red Blood Count 3.58 4.2-5.4 M/uL Hemoglobin 10.8 12.0-16.0 g/dL Hematocrit 32.1 37-47 % Mean Corpuscular Volume 89.7 80-100 fL Mean Corpuscular Hemoglobin 30.2 25-34 pg Mean Corpuscular Hemoglobin Concent 33.6 32-36 g/dl Platelet Count 243 130-400 K/uL Mean Platelet Volume 9.3 7.4-10.4 fL Neutrophils (%) (Auto) 62.1 % Lymphocytes (%) (Auto) 24.0 % Monocytes (%) (Auto) 12.1 % Eosinophils (%) (Auto) 1.3 % Basophils (%) (Auto) 0.4 % Neutrophils # (Auto) 4.24 1.4-6.5 K/uL Lymphocytes # (Auto) 1.64 1.2-3.4 K/uL Monocytes # (Auto) 0.83 0.11-0.59 K/uL Eosinophils # (Auto) 0.09 0-0.5 K/uL Basophils # (Auto) 0.03 0-0.2 K/uL RDW Standard Deviation 50.2 36.4-46.3 fL RDW Coefficient of Variation 15.3 11.5-14.5 % Immature Granulocyte % (Auto) 0.1 % Immature Granulocyte # (Auto) 0.01 0.00-0.02 K/uL Erythrocyte Sedimentation Rate 56 0-21 mm/hr Prothrombin Time 10.7 9.0-12.0 SECONDS Prothromb Time International Ratio 1.0 0.9-1.1 Activated Partial Thromboplast Time 25.9 21.0-31.0 SECONDS Partial Thromboplastin Ratio 1.0 Sodium Level 134 136-145 mmol/L Potassium Level 3.8 3.5-5.1 mmol/L Chloride Level 100 98-107 mmol/L Carbon Dioxide Level 25 21-32 mmol/L Anion Gap 9.0 3-11 mmol/L Blood Urea Nitrogen 18 7-18 mg/dl Creatinine 0.80 0.60-1.20 mg/dl Est Creatinine Clear Calc Drug Dose 47.2 ml/min Estimated GFR () 79.6 Estimated GFR (Non- 68.7 BUN/Creatinine Ratio 22.7 10-20 Random Glucose 90 70-99 mg/dl Calcium Level 9.3 8.5-10.1 mg/dl C-Reactive Protein 0.68 0-0.29 mg/dl Urine Color YELLOW Urine Appearance CLOUDY CLEAR Urine pH 8.5 4.5-7.5 Urine Specific [place] 1.010 1.000-1.030 Urine Protein NEG NEG Urine Glucose (UA) NEG NEG Urine Ketones NEG NEG Urine Occult Blood 1+ NEG Urine Nitrite NEG NEG Urine Bilirubin NEG NEG Urine Urobilinogen NEG NEG Urine Leukocyte Esterase LARGE NEG Urine RBC 0-4 0-4 /hpf Urine WBC >30 0-5 /hpf Urine Epithelial Cells >30 0-5 /lpf Urine Renal Cells 0-5 FEW /lpf Urine Bacteria 3+ NEG Urine Waxy Casts 0-3 0 /lpf Microbiology Results 08/25/17 Urine Culture, Received Pending Diagnostic Radiology Left hip XR: IMPRESSION: 1. Soft tissue swelling centered on the greater trochanter the left hip 2. No acute fractures or dislocations identified 3. Bilateral total hip arthroplasties CXR: IMPRESSION: AP portable study. Minor basilar interstitial thickening. Impression Assessment and Plan This is an 82yo F with a PMH of bilateral hip replacements in 2013, back surgery in [address] Peralta, anxiety, depression, nocturnal hypoxemia, h/o CVA in 2011 per patient, autoimmune hepatitis and other medical problems listed below who presents with left hip pain that started last night. Ambulatory dysfunction 2/2 left hip pain: -Left hip XR with soft tissue swelling, no fracture or dislocation -Ortho consult for morning -PT/OT for evaluation and conditioning -Discharge planning ordered -Fall precautions -Pain control Anxiety/depression: -Stable -Cont home dose zoloft Insomnia: -Cont home dose klonopin, remeron Nocturnal hypoxemia: -Cont home NC O2 of 2.5 L at night Dysphagia 2/2 Schatzki ring: -Dental soft diet -Aspiration precautions H/o CVA: -In 2011, per patient -No residual deficits Autoimmune hepatitis: -Stable, per patient -Cont Imuran H/o A Fib: -NSR on EKG DVT Ppx: Heparin SQ Code status: DNR per discussion with patient PCP: Jackie Dispo: Observation medsurg. Discharge planning for possible rehab. Patient seen in collaboration with Dr. Johnson. Please see addendum. Attending Physician, Dr. Johnson, addendum I have seen and examined the patient with AKSHAT Wright and agree with the assessment an plan as above. This is an 82 year old Female patient who has history of hip replacements in the past and appears on physical exam to have some post-op surgical changes of the hips however there is no fracture on imaging studies. The soft tissue swelling visualized on hip imaging correlates clinically with some left hip swelling. Patient continues to remain in hospital for pain control and physical therapy. Orthopedics has been consulted whether there are other interventions in a patient with hip surgeries in the past. Of note, patient has urinalysis wioth 3 + bacteria but denies urinary tract symptoms. Will hold off antibiotics at this time. Level of Care Med/Surg Resuscitation Status DO NOT RESUSCITATE VTE Prophylaxis VTE Risk Assessment Done? Y/N: Yes Risk Level: Moderate Given or contraindicated: Enoxaparin (Lovenox)SQ Social Service Consult >80 yr.& Lives Alone
[2017-08-25] MEDS ORDERED: IV FLUIDS COMPLETED PRN (21:15)
[2017-08-25 21:27] VITALS: BP 115/67; PULSE 66; TEMP 36.3; BMI 19.6
[2017-08-25] MEDS: CLONAZEPAM 0.5 MG TAB PO SCH (22:06)
[2017-08-25] MEDS: MIRTAZAPINE TAB 15 MG TAB PO SCH (22:06)
[2017-08-25] MEDS: HEPARIN SOD 5000 UNIT/0.5 ML CARP SQ SCH (22:08)
[2017-08-25] MEDS ORDERED: AZAT50TA33 PO (22:25)
[2017-08-25 22:46] VITALS: BP 149/52; PULSE 74; TEMP 36.8; O2SAT 98
[2017-08-25] MEDS ORDERED: TRAM-10 PO (22:53)
[2017-08-25] MEDS: TRAMADOL HCL 50 MG TAB PO PRN (23:26)
--- NOTE | 2017-08-25 23:38 | EMERGENCY ROOM VISIT NOTE ---
History Report prepared by [place]: Robert Herr Under the Supervision of: Dr. Kamran Krishnamurthy M.D. First contact with patient: 16:58 Chief Complaint: HIP PAIN Stated Complaint: LEFT HIP PAIN History of Present Illness The patient is a 82 year old female who presents to the Emergency Room with complaints of persistent left hip pain starting last night. She currently rates her discomfort as a 10/10 in severity. The patient states that she did not fall , twist, or bend in a weird way. She states that she is having left leg pain as well. The patient states that she was in the bathroom when she states that she has having a stinging pain in her hip. She notes that she has been in physical therapy for her back after surgery. The patient states that the last time she ate was a large breakfast around 1000 this morning, and she last had some liquids around an hour ago. The patient has a history of a hip replacement in her left hip as well in 2013 or 2014. Pt denies LOC, headache, visual changes, neck pain, chest pain, breathing difficulties, nausea, vomiting, abdominal pain , back pain, numbness, weakness, open wounds, active bleeding, or other complaints. Source of History: patient Onset: last night Position: other (left hip) Symptom Intensity: 10/10 Quality: other (stinging) Timing: constant Review of Systems See HPI for pertinent positives and negatives. A total of ten systems were reviewed and were otherwise negative. Past Medical & Surgical Medical Problems: (1) Anxiety (2) Deep venous thrombosis (3) Depression (4) Diverticulosis (5) Dyslipidemia (6) GERD (gastroesophageal reflux disease) (7) h/o Schatski's ring (8) H/O: CVA (cerebrovascular accident) (9) Hiatal hernia (10) History of peptic ulcer disease (11) Paroxysmal atrial fibrillation (12) Spondylolisthesis, lumbar region Surgical Problems: (1) H/O blepharoplasty (2) H/o cervical laminectomy (3) H/O elbow replacement (4) H/O esophagogastroduodenoscopy (5) H/O esophagogastroduodenoscopy (6) H/o excision radial head (7) H/O hernia repair (8) H/o paravaginal defect repair (9) H/o sacral nerve stimulator implant (10) H/o vesicourethropexy (11) H/O: hysterectomy (12) Hx of cholecystectomy (13) S/P appendectomy (14) S/P cataract surgery (15) S/P hip replacement Family History Omitted secondary to age Social History Smoking Status: Former Smoker Alcohol Use: none Drug Use: none Marital Status: Housing Status: lives with family Occupation Status: retired Current/Historical Medications Scheduled Azathioprine (Imuran), 1 TAB PO HS Calcium W/ Magnesium (Calcium & Magnesium), 1 TAB PO DAILY Clonazepam (Klonopin), 0.5 MG PO HS Mirtazapine (Remeron), 1 TAB PO HS Pantoprazole (Protonix), 40 MG PO QAM Probiotic Product (Trubiotics), 1 CAP PO QAM Sertraline HCl (Sertraline HCl), 1 TAB PO QAM Scheduled PRN Acetaminophen (Acetaminophen ER), 1 TAB PO Q8 PRN for Pain Tramadol (Ultram), 50 MG PO Q8H PRN for Pain Allergies Coded Allergies: Duloxetine (Verified Allergy, Severe, SEDATION & BAD DREAMS, 08/25/17) Iodinated Diagnostic Agents (Verified Allergy, Intermediate, Rash/Hives, ) Oxycodone (Verified Allergy, Intermediate, PERCOCET-ITCHING OF ARMS, SHOULDERS, 05/08/17) Chlorhexidine (Unverified Allergy, Unknown, RASH, 05/08/17) Corticosteroids (Verified Allergy, Unknown, STERIOD INJECTIONS - FLUSHING AND BLOTCHING REDNESS, 05/08/17) Dipyridamole (Verified Allergy, Unknown, reaction unknown, 05/08/17) Mepivacaine (Verified Allergy, Unknown, CAN'T REMEMBER?, 05/08/17) Morphine (Verified Allergy, Unknown, RASH, 05/08/17) Shellfish (Verified Allergy, Unknown, RASH, 08/25/17) Tetracycline (Verified Allergy, Unknown, RASH, 08/25/17) Codeine (Verified Adverse Reaction, Mild, GI UPSET, 05/08/17) Fenoprofen (Verified Adverse Reaction, Unknown, NALFON-HEPATITIS, CAN TAKE MOTRIN, 05/08/17) Physical Exam Vital Signs Date Time Temp Pulse Resp B/P (MAP) Pulse Ox O2 Delivery O2 Flow Rate FiO2 1/9/18 18:25 74 20 155/79 95 Room Air 08/25/17 17:38 71 08/25/17 17:00 36.8 74 22 151/81 95 Room Air Physical Exam GENERAL: Awake, alert, uncomfortable-appearing, in moderate distress HENT: Normocephalic, atraumatic. Oropharynx unremarkable. EYES: Normal conjunctiva. Sclera non-icteric. NECK: Supple. No nuchal rigidity. FROM. No JVD. RESPIRATORY: Clear to auscultation. CARDIAC: Regular rate, normal rhythm. Extremities warm and well perfused. Pulses equal. ABDOMEN: Soft, non-distended. No tenderness to palpation. No rebound or guarding. No masses. RECTAL: Deferred. MUSCULOSKELETAL: Chest examination reveals no tenderness. The back is symmetrical on inspection without obvious abnormality. There is no CVA tenderness to palpation. No joint edema. LOWER EXTREMITIES: Left lower extremity is shortened and flexed at the hip. Limited range of motion secondary to pain. Tenderness to palpation of the hip. NEURO: Normal sensorium. No sensory or motor deficits noted. SKIN: No rash or jaundice noted. Medical Decision & Procedures ER Provider Diagnostic Interpretation: Radiology results as stated below per my review and radiologist interpretation: AP PELVIS AND LEFT HIP 3 VIEWS CLINICAL HISTORY: Left hip pain COMPARISON STUDY: No previous studies for comparison. FINDINGS: There are bilateral total hip arthroplasties. No acute fractures or dislocations are visualized. There is soft tissue swelling centered on the greater trochanter the left hip. IMPRESSION: 1. Soft tissue swelling centered on the greater trochanter the left hip 2. No acute fractures or dislocations identified 3. Bilateral total hip arthroplasties Electronically signed by: Raffaele Scott M.D. 08/25/2017 5:45 PM Dictated Date/Time: 08/25/2017 5:44 PM CHEST ONE VIEW PORTABLE CLINICAL HISTORY: Left hip pain COMPARISON STUDY: 05/06/2017 FINDINGS: The cardiac and mediastinal contours remain stable. There is slight basilar interstitial thickening, a finding which may be accentuated by the AP supine technique. There are postsurgical changes in the cervical spine. A spinal electrode is visualized. There is no lobar consolidation.[ There is an old proximal left humeral fracture. IMPRESSION: AP portable study. Minor basilar interstitial thickening. Electronically signed by: Raffaele Scott M.D. 08/25/2017 5:44 PM Dictated Date/Time: 08/25/2017 5:43 PM Laboratory Results 08/25/17 17:07 Red Blood Count 3.58, Mean Corpuscular Volume 89.7, Mean Corpuscular Hemoglobin 30.2, Mean Corpuscular Hemoglobin Concent 33.6, Mean Platelet Volume 9.3, Neutrophils (%) (Auto) 62.1, Lymphocytes (%) (Auto) 24.0, Monocytes (%) (Auto) 12.1, Eosinophils (%) (Auto) 1.3, Basophils (%) (Auto) 0.4, Neutrophils # (Auto ) 4.24, Lymphocytes # (Auto) 1.64, Monocytes # (Auto) 0.83, Eosinophils # (Auto ) 0.09, Basophils # (Auto) 0.03 08/25/17 17:07 Test 08/25/17 17:07 08/25/17 18:13 White Blood Count 6.84 K/uL (4.8-10.8) Red Blood Count 3.58 M/uL (4.2-5.4) Hemoglobin 10.8 g/dL (12.0-16.0) Hematocrit 32.1 % (37-47) Mean Corpuscular Volume 89.7 fL (80-100) Mean Corpuscular Hemoglobin 30.2 pg (25-34) Mean Corpuscular Hemoglobin Concent 33.6 g/dl (32-36) Platelet Count 243 K/uL (130-400) Mean Platelet Volume 9.3 fL (7.4-10.4) Neutrophils (%) (Auto) 62.1 % Lymphocytes (%) (Auto) 24.0 % Monocytes (%) (Auto) 12.1 % Eosinophils (%) (Auto) 1.3 % Basophils (%) (Auto) 0.4 % Neutrophils # (Auto) 4.24 K/uL (1.4-6.5) Lymphocytes # (Auto) 1.64 K/uL (1.2-3.4) Monocytes # (Auto) 0.83 K/uL (0.11-0.59) Eosinophils # (Auto) 0.09 K/uL (0-0.5) Basophils # (Auto) 0.03 K/uL (0-0.2) RDW Standard Deviation 50.2 fL (36.4-46.3) RDW Coefficient of Variation 15.3 % (11.5-14.5) Immature Granulocyte % (Auto) 0.1 % Immature Granulocyte # (Auto) 0.01 K/uL (0.00-0.02) Erythrocyte Sedimentation Rate 56 mm/hr (0-21) Prothrombin Time 10.7 SECONDS (9.0-12.0) Prothromb Time International Ratio 1.0 (0.9-1.1) Activated Partial Thromboplast Time 25.9 SECONDS (21.0-31.0) Partial Thromboplastin Ratio 1.0 Anion Gap 9.0 mmol/L (3-11) Est Creatinine Clear Calc Drug Dose 47.2 ml/min Estimated GFR () 79.6 Estimated GFR (Non- 68.7 BUN/Creatinine Ratio 22.7 (10-20) Calcium Level 9.3 mg/dl (8.5-10.1) C-Reactive Protein 0.68 mg/dl (0-0.29) Urine Color YELLOW Urine Appearance CLOUDY (CLEAR) Urine pH 8.5 (4.5-7.5) Urine Specific [place] 1.010 (1.000-1.030) Urine Protein NEG (NEG) Urine Glucose (UA) NEG (NEG) Urine Ketones NEG (NEG) Urine Occult Blood 1+ (NEG) Urine Nitrite NEG (NEG) Urine Bilirubin NEG (NEG) Urine Urobilinogen NEG (NEG) Urine Leukocyte Esterase LARGE (NEG) Urine RBC 0-4 /hpf (0-4) Urine WBC >30 /hpf (0-5) Urine Epithelial Cells >30 /lpf (0-5) Urine Renal Cells 0-5 /lpf (FEW) Urine Bacteria 3+ (NEG) Urine Waxy Casts 0-3 /lpf (0) Laboratory results reviewed by me Medications Administered Medications (Trade) Dose Ordered Sig/[place] Route Start Time Stop Time Status Last Admin Dose Admin Sodium Chloride 1,000 ml @ 75 mls/hr [id number] ONCE IV 08/25/17 17:07 08/25/17 21:32 DC 08/25/17 17:16 75 MLS/HR Hydromorphone HCl (Dilaudid Inj) 0.25 mg Q20M PRN IV 08/25/17 17:15 08/25/17 21:33 DC 08/25/17 18:04 0.25 MG Ondansetron HCl (Zofran Inj) 4 mg STK-MED ONCE .ROUTE 08/25/17 17:13 08/25/17 17:14 DC 08/25/17 17:16 4 MG ECG Indication: other (hip pain) Rate (beats per minute): 68 Rhythm: sinus rhythm Findings: no acute ischemic change, no ectopy ED Course 165: The patient was evaluated in room C6. A complete history and physical exam was performed. 1707: Sodium Chloride 1000 ml @ 75 mls/hr IV 1713: Zofran 4mg IV 1715: Dilaudid 0.25mg IV 1747: I reevaluated the patient, and she was doing better. 180: Zofran 4mg IV 185: Upon reexamination, the patient was doing well. I discussed the test results and treatment plan with her. The patient will be evaluated for further management. 1903: Discussed the patient's case with Meghann Gresham. The patient will be evaluated for further treatment and disposition. Medical Decision Prior records reviewed and summarized above. Triage Nursing notes reviewed and agree them. Additional history obtained from family.. The patient's history was concerning for hip pain. Differential diagnosis: Etiologies such as fracture, dislocation, neurovascular compromise, soft tissue injury, as well as others were entertained. Physical examination: Consistent with an isolated hip injury. ER treatment provided: IV lock Zofran 4mg IV IV Dilaudid 3 NPO Bedrest On reassessment the patient felt better. Diagnostics interpreted by me: ECG: Unremarkable as above. The labs revealed an unremarkable CBC, coags, and chemistry panel. Minimal elevation of inflammatory markers. Imaging studies: Xrays as above. The patient has significant left hip pain. There is no fracture or dislocation. She cannot ambulate. This seems musculoskeletal. Further management in the hospital will be necessary given her inability to ambulate. Consultation: A consultation was placed with internal medicine. The case was discussed and diagnostics were reviewed. The patient was evaluated in the ER for further treatment. After admission the patient's urinalysis returned concerning for infection. I did notify Dr. nix of the abnormal results. Medication Reconcilliation Current Medication List: was personally reviewed by me Blood Pressure Screening Patient's blood pressure: Elevated blood pressure Monitored by the hospitalist Consults Time Called: [phone] Consulting Physician: Meghann Gresham Returned Call: [phone] Discussed the patient's case with Meghann Gresham. The patient will be evaluated for further treatment and disposition. Impression Primary Impression: Left hip pain Additional Impression: Ambulatory dysfunction Scribe Attestation The scribe's documentation has been prepared under my direction and personally reviewed by me in its entirety. I confirm that the note above accurately reflects all work, treatment, procedures, and medical decision making performed by me. Departure Information Dispostion Being Evaluated By Hospitalist Referrals Richa Mejia M.D. (PCP) Patient Instructions My [facility] Problem Qualifiers
[2017-08-26] MEDS ORDERED: CYCLOBENZAPRINE HCL 10 MG TAB PO STA (02:41)
[2017-08-26] MEDS ORDERED: ACETAMINOPHEN IV 1,000 MG in EMPTY BAG 0 ML IV PRN (02:45)
[2017-08-26] MEDS ORDERED: ACETAMINOPHEN IV 1000MG/100ML IV PRN (03:00)
[2017-08-26 05:44] LABS: HEMATOCRIT 28.6 % (37-47); HEMOGLOBIN 9.4 g/dL (12.0-16.0); MEAN CELL VOLUME 91.1 fL (80-100); MEAN CORPUSCULAR HEMOGLOBIN 29.9 pg (25-34); MEAN CORPUSCULAR HGB CONC 32.9 g/dl (32-36); MEAN PLATELET VOLUME 9.4 fL (7.4-10.4); PLATELET COUNT 198 K/uL (130-400); RED CELL DISTRIBUTION WIDTH CV 15.6 % (11.5-14.5); RED CELL DISTRIBUTION WIDTH SD 51.1 fL (36.4-46.3); WHITE BLOOD COUNT 4.56 K/uL (4.8-10.8)
[2017-08-26 06:12] LABS: CALCIUM 8.6 mg/dl (8.5-10.1); CREATININE 0.68 mg/dl (0.60-1.20); POTASSIUM 3.9 mmol/L (3.5-5.1)
[2017-08-26 07:34] VITALS: BP 122/78; PULSE 60; TEMP 36.6; O2SAT 94
[2017-08-26 07:42] VITALS: O2SAT 94
[2017-08-26] MEDS: SERTRALINE HCL 100 MG TAB PO SCH (08:37)
[2017-08-26] MEDS: CYCLOBENZAPRINE HCL 10 MG TAB PO SCH (08:37)
[2017-08-26] MEDS: PANTOprazole SOD 40 MG TAB PO SCH (08:37)
[2017-08-26] MEDS ORDERED: MAGNESIUM PO SCH (09:00)
[2017-08-26] MEDS ORDERED: PROBIOTIC PRODUCT PO SCH (09:00)
[2017-08-26] MEDS ORDERED: CALCIUM PO SCH (09:00)
[2017-08-26] MEDS: HEPARIN SOD 5000 UNIT/0.5 ML CARP SQ SCH (11:18)
--- NOTE | 2017-08-26 14:27 | Orthopedic Consultation ---
Orthopedic Consultation Date of Consultation: Aug 26, 2017. Attending Physician: Kamran Lockett M.D. Reason for Consultation: Left hip pain History of Present Illness Tay is an 82 y/o female admitted yesterday with left hip pain. She was moving laundry from her washer to dryer 2 days ago and felt a twinge of pain in the left hip. She has had similar pain with her hips in the past but not this severe. Her pain worsened yesterday to the point she had difficulty getting up to a standing position. She was seen in the ED and admitted. She has a h/o bilateral CANDELARIO done by Dr. Kumar in [place] she thinks maybe apr and june of 2015. No issues with wound healing or infection post op. She lives alone and ambulates with a cane mostly. No other complaints today. Denies fever or chills. No back pain or radicular type pain. Complete history was reviewed and please refer to admission H & P for completeness. Past Medical/Surgical History Medical Problems: (1) Abdominal pain Status: Acute (2) Acute diverticulitis Status: Acute (3) Ambulatory dysfunction Status: Acute (4) Dehydration Status: Acute (5) Diverticulitis Status: Acute (6) Enteritis Status: Acute (7) Headache Status: Acute (8) Left hip pain Status: Acute (9) Nausea Status: Acute (10) Neck pain Status: Acute (11) Post-op pain Status: Acute (12) Weakness Status: Acute Family History Omitted secondary to age Social History Smoking Status: Former Smoker Alcohol Use: occasionally Drug Use: none Marital Status: Housing Status: lives with family Occupation Status: retired Allergies Coded Allergies: Duloxetine (Verified Allergy, Severe, SEDATION & BAD DREAMS, 08/25/17) Iodinated Diagnostic Agents (Verified Allergy, Intermediate, Rash/Hives, ) Oxycodone (Verified Allergy, Intermediate, PERCOCET-ITCHING OF ARMS, SHOULDERS, 05/08/17) Chlorhexidine (Unverified Allergy, Unknown, RASH, 05/08/17) Corticosteroids (Verified Allergy, Unknown, STERIOD INJECTIONS - FLUSHING AND BLOTCHING REDNESS, 05/08/17) Dipyridamole (Verified Allergy, Unknown, reaction unknown, 05/08/17) Mepivacaine (Verified Allergy, Unknown, CAN'T REMEMBER?, 05/08/17) Morphine (Verified Allergy, Unknown, RASH, 05/08/17) Shellfish (Verified Allergy, Unknown, RASH, 08/25/17) Tetracycline (Verified Allergy, Unknown, RASH, 08/25/17) Codeine (Verified Adverse Reaction, Mild, GI UPSET, 05/08/17) Fenoprofen (Verified Adverse Reaction, Unknown, NALFON-HEPATITIS, CAN TAKE MOTRIN, 05/08/17) Home Medications Scheduled Azathioprine (Imuran), 1 TAB PO HS Calcium W/ Magnesium (Calcium & Magnesium), 1 TAB PO DAILY Clonazepam (Klonopin), 0.5 MG PO HS Mirtazapine (Remeron), 1 TAB PO HS Pantoprazole (Protonix), 40 MG PO QAM Probiotic Product (Trubiotics), 1 CAP PO QAM Sertraline HCl (Sertraline HCl), 1 TAB PO QAM Scheduled PRN Acetaminophen (Acetaminophen ER), 1 TAB PO Q8 PRN for Pain Tramadol (Ultram), 50 MG PO Q8H PRN for Pain Current Inpatient Medications Current Inpatient Medications Medications (Trade) Dose Ordered Sig/Kelsea Route Start Time Stop Time Status Last Admin Dose Admin Ondansetron HCl (Zofran Inj) 4 mg Q6H PRN IV 08/25/17 20:00 09/24/17 19:59 Heparin Sodium (Porcine) (Heparin Sq 5000 Unit/0.5ml) 5,000 unit Q12H SQ 08/25/17 22:00 09/24/17 21:59 08/26/17 11:18 5,000 UNIT Clonazepam (Klonopin Tab) 0.5 mg HS PO 08/25/17 21:00 09/24/17 20:59 08/25/17 22:06 0.5 MG Mirtazapine (Remeron Tab) 15 mg HS PO 08/25/17 21:00 09/24/17 20:59 08/25/17 22:06 15 MG Pantoprazole Sodium (Protonix Tab) 40 mg QAM PO 08/26/17 09:00 09/25/17 08:59 08/26/17 08:37 40 MG Sertraline HCl (Zoloft Tab) 100 mg QAM PO 08/26/17 09:00 09/25/17 08:59 08/26/17 08:37 100 MG Miscellaneous (Iv Fluids Completed) 1 ea PRN PRN N/A 08/25/17 21:15 08/25/18 21:14 Azathioprine (Imuran Tab) 50 mg HS PO 08/26/17 21:00 09/25/17 20:59 Tramadol HCl (Ultram Tab) 50 mg Q8H PRN PO 08/25/17 23:00 09/24/17 22:59 08/25/17 23:26 50 MG Cyclobenzaprine HCl (Flexeril Tab) 10 mg QAM PO 08/26/17 09:00 09/25/17 08:59 08/26/17 08:37 10 MG Acetaminophen 100 ml @ 400 mls/hr Q8H PRN IV 08/26/17 03:00 09/25/17 02:59 Physical Exam Date Time Temp Pulse Resp B/P (MAP) Pulse Ox O2 Delivery O2 Flow Rate FiO2 08/26/17 07:45 Room Air 08/26/17 07:42 94 Room Air 08/26/17 07:34 36.6 60 14 122/78 (93) 94 Room Air 08/25/17 23:30 Nasal Cannula 2.5 08/25/17 22:46 36.8 74 17 149/52 (84) 98 Nasal Cannula 2.0 08/25/17 21:27 36.3 66 18 115/67 Room Air 08/25/17 20:47 82 18 123/71 97 Room Air 08/25/17 18:25 74 20 155/79 95 Room Air 08/25/17 17:38 71 08/25/17 17:00 36.8 74 22 151/81 95 Room Air This is an elderly female in [facility]. She is alert and oriented. She has scars on both hips from previous CANDELARIO. There is some prominence of her greater trochanter bilaterally. There is some palpable subcutaneous swelling of the left hip. Some tenderness in this area. No redness or warmth. No pain with ROM of her hips today. xrays show previous bilateral CANDELARIO. No fracture or dislocation. Laboratory Results Last 24 Hours Test 08/25/17 17:07 08/25/17 18:13 08/26/17 05:31 08/26/17 14:07 White Blood Count 6.84 K/uL 4.56 K/uL Red Blood Count 3.58 M/uL 3.14 M/uL Hemoglobin 10.8 g/dL 9.4 g/dL Hematocrit 32.1 % 28.6 % Mean Corpuscular Volume 89.7 fL 91.1 fL Mean Corpuscular Hemoglobin 30.2 pg 29.9 pg Mean Corpuscular Hemoglobin Concent 33.6 g/dl 32.9 g/dl Platelet Count 243 K/uL 198 K/uL Mean Platelet Volume 9.3 fL 9.4 fL Neutrophils (%) (Auto) 62.1 % Lymphocytes (%) (Auto) 24.0 % Monocytes (%) (Auto) 12.1 % Eosinophils (%) (Auto) 1.3 % Basophils (%) (Auto) 0.4 % Neutrophils # (Auto) 4.24 K/uL Lymphocytes # (Auto) 1.64 K/uL Monocytes # (Auto) 0.83 K/uL Eosinophils # (Auto) 0.09 K/uL Basophils # (Auto) 0.03 K/uL RDW Standard Deviation 50.2 fL 51.1 fL RDW Coefficient of Variation 15.3 % 15.6 % Immature Granulocyte % (Auto) 0.1 % Immature Granulocyte # (Auto) 0.01 K/uL Erythrocyte Sedimentation Rate 56 mm/hr Prothrombin Time 10.7 SECONDS Prothromb Time International Ratio 1.0 Activated Partial Thromboplast Time 25.9 SECONDS Partial Thromboplastin Ratio 1.0 Sodium Level 134 mmol/L 138 mmol/L Potassium Level 3.8 mmol/L 3.9 mmol/L Chloride Level 100 mmol/L 104 mmol/L Carbon Dioxide Level 25 mmol/L 28 mmol/L Anion Gap 9.0 mmol/L 6.0 mmol/L Blood Urea Nitrogen 18 mg/dl 14 mg/dl Creatinine 0.80 mg/dl 0.68 mg/dl Est Creatinine Clear Calc Drug Dose 47.2 ml/min 55.6 ml/min Estimated GFR () 79.6 94.4 Estimated GFR (Non- 68.7 81.5 BUN/Creatinine Ratio 22.7 20.5 Random Glucose 90 mg/dl 89 mg/dl Calcium Level 9.3 mg/dl 8.6 mg/dl C-Reactive Protein 0.68 mg/dl Urine Color YELLOW Urine Appearance CLOUDY Urine pH 8.5 Urine Specific [place] 1.010 Urine Protein NEG Urine Glucose (UA) NEG Urine Ketones NEG Urine Occult Blood 1+ Urine Nitrite NEG Urine Bilirubin NEG Urine Urobilinogen NEG Urine Leukocyte Esterase LARGE Urine RBC 0-4 /hpf Urine WBC >30 /hpf Urine Epithelial Cells >30 /lpf Urine Renal Cells 0-5 /lpf Urine Bacteria 3+ Urine Waxy Casts 0-3 /lpf Assessment & Plan Imp: Left hip pain with likely hip abductor strain/avulsion with hematoma , previous CANDELARIO Plan: She was seen and examined by Dr. Wright today. We do think she likely injured her hip abductors some. However, we did recommend aspirating this swollen area today and sending the fluid off to the lab. Her ESR/CRP are just slightly elevated. We will check a cell count w/ diff, gram stain, aerobic/ anaerobic cultures. We also ordered PT (WBAT with no hip abduction). Thank you for this consult and please call with further questions. Procedure note: Left hip was sterilely prepped with alcohol and using aseptic technique was aspirated about 25mL of bloody fluid from the subcutaneous area/ hematoma of left hip. She tolerated the procedure well. No complications. Fluid will be sent for labs as noted above. Dressing was applied with 4x4's and tape.
[2017-08-26 14:55] VITALS: BP 111/66; PULSE 64; TEMP 36.7; O2SAT 95
[2017-08-26] MEDS: TRAMADOL HCL 50 MG TAB PO PRN (16:35)
[2017-08-26 16:40] VITALS: Ht 167.6 cm; Wt 55.2 kg
[2017-08-26] MEDS ORDERED: HYDROmorphone INJ 1 MG/ML SYR IV PRN (17:00)
[2017-08-26] MEDS ORDERED: HYDROmorphone INJ 1 MG/ML SYR ONE (17:09)
--- NOTE | 2017-08-26 20:46 | Progress Note ---
Medicine Progress Note Date & Time of Visit: Aug 26, 2017 at 16:50 . Subjective CC: Follow-up visit for left hip pain. HPI: Persistent severe left hip pain. Analgesics not effective. Seen by Ortho; hip aspirated. ROS: General- no fever, no chills Resp- occasional cough, chronic, unchanged; no shortness of breath Cardiac- no chest pain, no edema GI- no nausea, no vomiting, no diarrhea - + urinary incontinence (chronic), no dysuria . Objective Last 8 Hrs Date Time Temp Pulse Resp B/P (MAP) Pulse Ox O2 Delivery O2 Flow Rate FiO2 08/26/17 15:30 Room Air 08/26/17 14:55 36.7 64 18 111/66 (81) 95 Room Air Physical Exam: General- lying in bed, uncomfortable Lungs- clear; no respiratory distress Cardiovascular- RRR, no gallop; no JVD; no pretibial edema Abdomen- + BS, soft, nontender Extremities- no cyanosis; left hip tenderness; no calf tenderness Neuro- alert; mild left ptosis; mild dysarthria Skin- warm & dry . Laboratory Results: Last 24 Hours Test 08/26/17 00:00 08/26/17 05:31 Body Fluid Source HIP Body Fluid Color RED Body Fluid Appearance BLOODY Body Fluid WBC 3841 /uL Body Fluid RBC 3944336 /uL Body Fluid Polynuclear WBCs (%) 73.9 % Body Fluid Mononuclear WBCs (%) 26.1 % White Blood Count 4.56 K/uL Red Blood Count 3.14 M/uL Hemoglobin 9.4 g/dL Hematocrit 28.6 % Mean Corpuscular Volume 91.1 fL Mean Corpuscular Hemoglobin 29.9 pg Mean Corpuscular Hemoglobin Concent 32.9 g/dl RDW Standard Deviation 51.1 fL RDW Coefficient of Variation 15.6 % Platelet Count 198 K/uL Mean Platelet Volume 9.4 fL Sodium Level 138 mmol/L Potassium Level 3.9 mmol/L Chloride Level 104 mmol/L Carbon Dioxide Level 28 mmol/L Anion Gap 6.0 mmol/L Blood Urea Nitrogen 14 mg/dl Creatinine 0.68 mg/dl Est Creatinine Clear Calc Drug Dose 55.6 ml/min Estimated GFR () 94.4 Estimated GFR (Non- 81.5 BUN/Creatinine Ratio 20.5 Random Glucose 89 mg/dl Calcium Level 8.6 mg/dl Date/Time Source Procedure Growth Status 08/26/17 00:00 Aspirate - Other Hip , Left Gram Stain - Final Resulted 08/26/17 00:00 Aspirate - Other Hip , Left Bacterial Culture Pending Resulted Assessment & Plan LEFT HIP PAIN Seen by Ortho. [place] to have abductor strain with avulsion and hematoma. Hip aspirated to rule out infection. Titrate analgesics. PT / OT. GERD Continue PPI. HISTORY AUTOIMMUNE HEPATITIS Continue azathioprine. HISTORY AF Now in NSR. AMBULATORY DYSFUNCTION PT / OT evals. VTE PROPHYLAXIS Initially received SQ heparin. Heparin discontinued due to left hip hematoma. SCD's. Ambulate as able. DISPOSITION To be determined. May need inpatient rehabilitation due to her ambulatory dysfunction. Family Medicine follow-up with Dr. Mejia. . Current Inpatient Medications: Current Inpatient Medications Medications (Trade) Dose Ordered Sig/Kelsea Route Start Time Stop Time Status Last Admin Dose Admin Ondansetron HCl (Zofran Inj) 4 mg Q6H PRN IV 08/25/17 20:00 09/24/17 19:59 Clonazepam (Klonopin Tab) 0.5 mg HS PO 08/25/17 21:00 09/24/17 20:59 08/25/17 22:06 0.5 MG Mirtazapine (Remeron Tab) 15 mg HS PO 08/25/17 21:00 09/24/17 20:59 08/25/17 22:06 15 MG Pantoprazole Sodium (Protonix Tab) 40 mg QAM PO 08/26/17 09:00 09/25/17 08:59 08/26/17 08:37 40 MG Sertraline HCl (Zoloft Tab) 100 mg QAM PO 08/26/17 09:00 09/25/17 08:59 08/26/17 08:37 100 MG Miscellaneous (Iv Fluids Completed) 1 ea PRN PRN N/A 08/25/17 21:15 08/25/18 21:14 Azathioprine (Imuran Tab) 50 mg HS PO 08/26/17 21:00 09/25/17 20:59 Tramadol HCl (Ultram Tab) 50 mg Q8H PRN PO 08/25/17 23:00 09/24/17 22:59 08/26/17 16:35 50 MG Cyclobenzaprine HCl (Flexeril Tab) 10 mg QAM PO 08/26/17 09:00 09/25/17 08:59 08/26/17 08:37 10 MG Acetaminophen 100 ml @ 400 mls/hr Q8H PRN IV 08/26/17 03:00 09/25/17 02:59 Hydromorphone HCl (Dilaudid Inj) 0.5 mg Q2H PRN IV 08/26/17 17:00 09/09/17 16:59
[2017-08-26] MEDS: CLONAZEPAM 0.5 MG TAB PO SCH (21:02)
[2017-08-26] MEDS: MIRTAZAPINE TAB 15 MG TAB PO SCH (21:02)
[2017-08-26] MEDS: AZATHIOPRINE 50 MG TAB PO SCH (21:02)
[2017-08-26 22:45] VITALS: BP 135/73; PULSE 67; TEMP 36.5; O2SAT 98
[2017-08-27 07:33] VITALS: BP 113/61; PULSE 68; TEMP 36.5; O2SAT 94
--- NOTE | 2017-08-27 07:34 | PROGRESS NOTE ---
DATE: 08/26/2017 SUBJECTIVE: An 82-year-old white female admitted with left hip pain and ambulatory dysfunction after bilateral total hip replacements done at [place]. Several day onset of pain. No real new complaints. She says she had a little rough time but after we aspirated this hematoma from her hip area. OBJECTIVE: VITAL SIGNS: Temperature is 36.5. Vital signs stable. GENERAL: Reveals a pleasant elderly female. Lying in bed, looks pretty comfortable. EXTREMITIES: Examination of the left hip reveals the exam unchanged. Legs are well aligned. Hip is located. She continues to have some swelling in this area of the hematoma. Minimal pain with hip motion. LABORATORY DATA: The aspiration results revealed almost all just blood. Only 3800 of white cells with 74% polys. Gram stain, no organisms. ASSESSMENT: An 82-year-old female status post bilateral hip replacement done at [place] with a several day history of acute onset of left hip pain after overuse type injury. She does have a bit of a hematoma over hip abductors and likely has had an injury to her hip abductor muscles. This should resolve with time. I do not think there are any signs of infection or concerning pathology. She can resume therapy and back to normal activities. From the orthopedic standpoint, she does not need to be in the hospital. She certainly may need some assistance and may need rehab visit if not able to go home or retirement facility. Any orthopedic questions can be directed to me at [phone]. She can weightbear as tolerated. Only restriction will be no active hip abduction for the next 4-6 weeks.
[2017-08-27] MEDS: CEFTRIAXONE SOD INJ 1 GM in DEXTROSE 5% ADD-VANTAGE 50ML 50 ML IV SCH (08:40)
[2017-08-27] MEDS: SERTRALINE HCL 100 MG TAB PO SCH (08:41)
[2017-08-27] MEDS: CYCLOBENZAPRINE HCL 10 MG TAB PO SCH (08:41)
[2017-08-27] MEDS: PANTOprazole SOD 40 MG TAB PO SCH (08:41)
[2017-08-27 15:04] VITALS: BP 101/64; PULSE 70; TEMP 36.7; O2SAT 95
--- NOTE | 2017-08-27 20:57 | Progress Note ---
Medicine Progress Note Date & Time of Visit: Aug 27, 2017 at 16:00 . Subjective CC: Follow-up visit for left hip pain. HPI: Left hip pain better. Ambulating with walker and assistance, albeit with discomfort. No fever or chills. ROS: General- as noted above in HPI Resp- chronic cough cough; no shortness of breath Cardiac- no chest pain, no edema GI- loose stool this morning; no nausea, no vomiting - chronic urgency / incontinence . Objective Last 8 Hrs Date Time Temp Pulse Resp B/P (MAP) Pulse Ox O2 Delivery O2 Flow Rate FiO2 08/27/17 15:45 Room Air 08/27/17 15:04 36.7 70 16 101/64 (76) 95 Room Air Physical Exam: General- lying in bed, no distress Lungs- clear; no respiratory distress Cardiovascular- RRR, no gallop; no JVD; no pretibial edema Abdomen- + BS, soft, nontender Extremities- no cyanosis; less tenderness left hip; no calf tenderness; SCD's applied Neuro- alert; mild left ptosis; mild dysarthria Skin- warm & dry . Assessment & Plan LEFT HIP PAIN Seen by Ortho. [place] to have abductor strain with avulsion and hematoma. Hip aspirated to rule out infection. Aspirate was grossly bloody; gram stain showed moderate WBC's, no bactera; culture negative so far. Titrate analgesics. Increase activity. PT / OT. UTI (present on admission) Urine culture growing E coli and alpha Strep. Chronic urinary urgency / incontinence. Afebrile. ? infection vs colonization. Receiving ceftriaxone. Transition to oral therapy tomorrow. GERD Continue PPI. HISTORY AUTOIMMUNE HEPATITIS Continue azathioprine. HISTORY AF Now in NSR. AMBULATORY DYSFUNCTION PT / OT evals. VTE PROPHYLAXIS Initially received SQ heparin. Heparin discontinued due to left hip hematoma. SCD's. Ambulate as able. DISPOSITION To be determined. May need inpatient rehabilitation due to her ambulatory dysfunction. Family Medicine follow-up with Dr. Mejia. . Current Inpatient Medications: Current Inpatient Medications Medications (Trade) Dose Ordered Sig/Kelsea Route Start Time Stop Time Status Last Admin Dose Admin Ondansetron HCl (Zofran Inj) 4 mg Q6H PRN IV 08/25/17 20:00 09/24/17 19:59 Clonazepam (Klonopin Tab) 0.5 mg HS PO 08/25/17 21:00 2/8/18 20:59 08/26/17 21:02 0.5 MG Mirtazapine (Remeron Tab) 15 mg HS PO 08/25/17 21:00 09/24/17 20:59 08/26/17 21:02 15 MG Pantoprazole Sodium (Protonix Tab) 40 mg QAM PO 08/26/17 09:00 09/25/17 08:59 08/27/17 08:41 40 MG Sertraline HCl (Zoloft Tab) 100 mg QAM PO 08/26/17 09:00 09/25/17 08:59 08/27/17 08:41 100 MG Miscellaneous (Iv Fluids Completed) 1 ea PRN PRN N/A 08/25/17 21:15 08/25/18 21:14 Azathioprine (Imuran Tab) 50 mg HS PO 08/26/17 21:00 09/25/17 20:59 08/26/17 21:02 50 MG Tramadol HCl (Ultram Tab) 50 mg Q8H PRN PO 08/25/17 23:00 09/24/17 22:59 08/26/17 16:35 50 MG Cyclobenzaprine HCl (Flexeril Tab) 10 mg QAM PO 08/26/17 09:00 09/25/17 08:59 08/27/17 08:41 10 MG Acetaminophen 100 ml @ 400 mls/hr Q8H PRN IV 08/26/17 03:00 09/25/17 02:59 Hydromorphone HCl (Dilaudid Inj) 0.5 mg Q2H PRN IV 08/26/17 17:00 09/09/17 16:59 08/27/17 01:18 0.5 MG Ceftriaxone Sodium 1 gm/ Dextrose 50 ml @ 100 mls/hr DAILY@0900 IV 08/27/17 09:00 09/01/17 08:59 08/27/17 08:40 100 MLS/HR
[2017-08-27] MEDS: CLONAZEPAM 0.5 MG TAB PO SCH (21:44)
[2017-08-27] MEDS: TRAMADOL HCL 50 MG TAB PO PRN (21:44)
[2017-08-27] MEDS: AZATHIOPRINE 50 MG TAB PO SCH (21:44)
[2017-08-27] MEDS: MIRTAZAPINE TAB 15 MG TAB PO SCH (21:45)
[2017-08-27 22:52] VITALS: BP 110/70; PULSE 79; TEMP 36.9; O2SAT 94
[2017-08-28 06:53] VITALS: BP 115/67; PULSE 64; TEMP 36.8; O2SAT 96
[2017-08-28 06:56] LABS: HEMATOCRIT 28.8 % (37-47); HEMOGLOBIN 9.4 g/dL (12.0-16.0); MEAN CELL VOLUME 91.1 fL (80-100); MEAN CORPUSCULAR HEMOGLOBIN 29.7 pg (25-34); MEAN CORPUSCULAR HGB CONC 32.6 g/dl (32-36); MEAN PLATELET VOLUME 9.2 fL (7.4-10.4); PLATELET COUNT 215 K/uL (130-400); RED CELL DISTRIBUTION WIDTH CV 15.1 % (11.5-14.5); RED CELL DISTRIBUTION WIDTH SD 50.6 fL (36.4-46.3); WHITE BLOOD COUNT 3.76 K/uL (4.8-10.8)
--- NOTE | 2017-08-28 07:27 | PROGRESS NOTE ---
DATE: 08/28/2017 SUBJECTIVE: An 82-year-old white female admitted with left hip pain after total hip replacement done elsewhere. She says her hip is feeling better today. She still has pain with weightbearing. No new complaints. OBJECTIVE: VITAL SIGNS: Temperature 36.8. Vital signs stable. GENERAL: A pleasant elderly female. She is lying in bed and looks comfortable. EXTREMITIES: Examination of left hip reveals the swelling to have reaccumulated around the trochanter area. There is no redness or warmth. She can do a straight leg raise. Minimal pain with hip motion. LABORATORY RESULTS: Her aspiration results reveal 2,000,600 red blood cells. 4000 white cells. Cultures show no growth. ASSESSMENT: An 82-year-old white female with acute onset left hip pain after total hip replacement most consistent with hip abductor injury. This all looks like bloody accumulation, has reaccumulated some, suggests there is some slight residual bleeding. There is no further surgical intervention warranted other than just observation. PLAN: We recommend she continue to progress activities as tolerated. She can weightbear as tolerated. No active hip abduction. She will likely need assistance upon discharge. She is orthopedically acceptable for discharge any time. We are going to sign off for now. If any need for reevaluation, let us know. I can be reached at [phone].
[2017-08-28] MEDS: PANTOprazole SOD 40 MG TAB PO SCH (09:00)
[2017-08-28] MEDS: SERTRALINE HCL 100 MG TAB PO SCH (09:00)
[2017-08-28] MEDS: CYCLOBENZAPRINE HCL 10 MG TAB PO SCH (09:00)
[2017-08-28] MEDS: CEFTRIAXONE SOD INJ 1 GM in DEXTROSE 5% ADD-VANTAGE 50ML 50 ML IV SCH (09:01)
[2017-08-28 14:50] VITALS: BP 129/71; PULSE 75; TEMP 36.6; O2SAT 94
[2017-08-28] MEDS: TRAMADOL HCL 50 MG TAB PO PRN (15:12)
--- NOTE | 2017-08-28 17:55 | Progress Note ---
Medicine Progress Note Date & Time of Visit: Aug 28, 2017 at 14:50 . Subjective CC: Follow-up visit for left hip pain. HPI: Persistent left hip pain, worse with activity. No fever or chills ROS: General- as noted above in HPI Resp- chronic cough, no change; no shortness of breath Cardiac- no chest pain, no edema GI- no nausea, no vomiting, no diarrhea, no constipation - chronic urinary urgency and incontinence . Objective Last 8 Hrs Date Time Temp Pulse Resp B/P (MAP) Pulse Ox O2 Delivery O2 Flow Rate FiO2 08/28/17 14:50 36.6 75 16 129/71 (90) 94 Room Air 08/28/17 08:20 Room Air Physical Exam: General- lying in bed, no distress Lungs- clear; no respiratory distress Cardiovascular- RRR, no gallop; no JVD; no pretibial edema Abdomen- + BS, soft, nontender Extremities- no cyanosis; swelling and tenderness left hip; no calf tenderness Neuro- alert; mild left ptosis; mild dysarthria Skin- warm & dry . Laboratory Results: Last 24 Hours Test 08/28/17 06:23 White Blood Count 3.76 K/uL Red Blood Count 3.16 M/uL Hemoglobin 9.4 g/dL Hematocrit 28.8 % Mean Corpuscular Volume 91.1 fL Mean Corpuscular Hemoglobin 29.7 pg Mean Corpuscular Hemoglobin Concent 32.6 g/dl RDW Standard Deviation 50.6 fL RDW Coefficient of Variation 15.1 % Platelet Count 215 K/uL Mean Platelet Volume 9.2 fL Assessment & Plan LEFT HIP PAIN Seen by Ortho. [place] to have abductor strain with avulsion and hematoma. Hip aspirated to rule out infection. Aspirate was grossly bloody; gram stain showed moderate WBC's, no bactera; culture negative so far. Titrate analgesics. Increase activity. PT / OT. UTI (present on admission) Urine culture growing E coli and alpha Strep. Chronic urinary urgency / incontinence. Afebrile. ? infection vs colonization. Received ceftriaxone. Transition to oral therapy with amoxicillin. GERD Continue PPI. HISTORY AUTOIMMUNE HEPATITIS Continue azathioprine. HISTORY AF Now in NSR. AMBULATORY DYSFUNCTION PT / OT evals. VTE PROPHYLAXIS Initially received SQ heparin. Heparin discontinued due to left hip hematoma. SCD's. Ambulate as able. DISPOSITION Needs skilled care due to her ambulatory dysfunction. Arrangements being made for transfer to [place] at [facility]. Family Medicine follow-up with Dr. Mejia. Ortho follow-up with Dr. Kyle BRANDT. . Current Inpatient Medications: Current Inpatient Medications Medications (Trade) Dose Ordered Sig/Kelsea Route Start Time Stop Time Status Last Admin Dose Admin Ondansetron HCl (Zofran Inj) 4 mg Q6H PRN IV 08/25/17 20:00 09/24/17 19:59 Clonazepam (Klonopin Tab) 0.5 mg HS PO 08/25/17 21:00 09/24/17 20:59 08/27/17 21:44 0.5 MG Mirtazapine (Remeron Tab) 15 mg HS PO 08/25/17 21:00 09/24/17 20:59 08/26/17 21:02 15 MG Pantoprazole Sodium (Protonix Tab) 40 mg QAM PO 08/26/17 09:00 09/25/17 08:59 08/28/17 09:00 40 MG Sertraline HCl (Zoloft Tab) 100 mg QAM PO 08/26/17 09:00 09/25/17 08:59 08/28/17 09:00 100 MG Miscellaneous (Iv Fluids Completed) 1 ea PRN PRN N/A 08/25/17 21:15 08/25/18 21:14 Azathioprine (Imuran Tab) 50 mg HS PO 08/26/17 21:00 09/25/17 20:59 08/27/17 21:44 50 MG Tramadol HCl (Ultram Tab) 50 mg Q8H PRN PO 08/25/17 23:00 09/24/17 22:59 08/28/17 15:12 50 MG Cyclobenzaprine HCl (Flexeril Tab) 10 mg QAM PO 08/26/17 09:00 09/25/17 08:59 08/28/17 09:00 10 MG Acetaminophen 100 ml @ 400 mls/hr Q8H PRN IV 08/26/17 03:00 09/25/17 02:59 Hydromorphone HCl (Dilaudid Inj) 0.5 mg Q2H PRN IV 08/26/17 17:00 09/09/17 16:59 08/27/17 01:18 0.5 MG Ceftriaxone Sodium 1 gm/ Dextrose 50 ml @ 100 mls/hr DAILY@0900 IV 08/27/17 09:00 09/01/17 08:59 08/28/17 09:01 100 MLS/HR
[2017-08-28] MEDS ORDERED: AMX250 PO ×2 (18:00→18:07)
[2017-08-28] MEDS ORDERED: TRAM-10 PO (18:00)
[2017-08-28] MEDS ORDERED: CLON0.5T3 PO (18:06)
--- NOTE | 2017-08-28 18:06 | Discharge Instructions ---
Discharge Instructions Date of Service Aug 28, 2017. Admission Reason for Admission: left hip pain . Discharge Discharge Diagnosis / Problem: hematoma left hip, suspected abductor strain with avulsion Discharge Goals Goal(s): Decrease discomfort, Increase independence Activity Recommendations Activity Level: Assistance Required Therapies: Physical Therapy, Occupational Therapy No active abduction left hip for 6 months. . Additional Information Patient informed of condition: Yes Advance Directives: Yes DNR: Yes Level of Care: Skilled Communicable Disease: No Prognosis: Improving Fontaine Catheter: No Instructions / Follow-Up Instructions / Follow-Up APPOINTMENTS: FAMILY MEDICINE Dr. Mejia Please arrange for appointment when discharged from your facility. Thank you for receiving this patient in transfer. Please call if you have any questions. Kamran Lockett . Current Hospital Diet Patient's current hospital diet: Regular Diet Discharge Diet Recommended Diet: AHA Diet (Heart Healthy) Pending Studies Studies pending at discharge: no Physician Orders On Transfer Special Precautions: Aspiration precautions. (patient declines thickened liquids) Fall precautions. . Vital Signs: Routine. . Weigh: Routine. . Additional Orders: VTE PROPHYLAXIS: SCD's. . Medical Emergencies . Who to Call and When: Medical Emergencies: If at any time you feel your situation is an emergency, please call 911 immediately. . Non-Emergent Contact Non-Emergency issues call your: Primary Care Provider, Hospital Doctor . . "Provider Documentation" section prepared by Kamran Lockett. . Core Measure Problem Core Measures: None [place] Drug Monitoring Program Search Results: patient reviewed within database, no issues identified
--- NOTE | 2017-08-28 18:15 | Discharge Summary ---
Discharge Summary Date of Service Aug 28, 2017. Discharge Summary Admission Date: Aug 25, 2017 at 19:54 Discharge Date: Aug 28, 2017 Discharge Disposition: assisted facility ([place] [facility]) Principal Diagnosis: left hip pain due to abductor strain and avulsion with hematoma Other acute diagnoses: urinary tract infection (E coli, present on admission) . Secondary Diagnoses/Problems: Chronic and Resolved Medical Problems: (1) Anxiety Status: Chronic (2) Deep venous thrombosis, history of Status: Chronic (3) Depression Status: Chronic (4) Diverticulosis Status: Chronic (5) Dyslipidemia Status: Chronic (6) GERD (gastroesophageal reflux disease) Status: Chronic (7) h/o Schatski's ring Status: Chronic (8) H/O: CVA (cerebrovascular accident) Permanent Comment: 2011 per patient Status: Chronic (9) Hiatal hernia Status: Chronic (10) History of peptic ulcer disease Status: Chronic (11) Paroxysmal atrial fibrillation Status: Chronic (12) Spondylolisthesis, lumbar region Status: Chronic Surgical Problems: (1) H/O blepharoplasty (2) H/o cervical laminectomy (3) H/O elbow replacement (5) H/O esophagogastroduodenoscopy Permanent Comment: 08/06/15- Schatzki's ring, small hiatal hernia, gastritis (6) H/o excision radial head (7) H/O hernia repair (8) H/o paravaginal defect repair (9) H/o sacral nerve stimulator implant (10) H/o vesicourethropexy (11) H/O: hysterectomy Status: Resolved (12) Hx of cholecystectomy (13) S/P appendectomy (14) S/P cataract surgery (15) S/P hip replacement Permanent Comment: bilateral . Procedures: aspiration left hip by Orthopedics . Consultations: Orthopedics with Dr. Wright. . Medication Reconciliation New Medications: Amoxicillin (Amoxicillin) 250 Mg Cap 250 MG PO TID, #15 CAP Continued Medications: Acetaminophen (Acetaminophen ER) 650 Mg Tab 1 TAB PO Q8 PRN for Pain Azathioprine (Imuran) 50 Mg Tab 1 TAB PO HS for 30 Days, TAB 3 Refills Calcium W/ Magnesium (Calcium & Magnesium) 1 Tab Tab 1 TAB PO DAILY Clonazepam (Klonopin) 0.5 Mg Tab 0.5 MG PO HS, #2 TAB (This prescription has been renewed) Mirtazapine (Remeron) 15 Mg Tab 1 TAB PO HS for 30 Days, #30 TAB 3 Refills Pantoprazole (Protonix) 40 Mg Tab 40 MG PO QAM, TAB Probiotic Product (Trubiotics) 1 Cap Cap 1 CAP PO QAM Sertraline HCl (Sertraline HCl) 100 Mg Tab 1 TAB PO QAM Tramadol (Ultram) 50 Mg Tab 50 MG PO Q8H PRN for Pain, #12 TAB (This prescription has been renewed) Admission Information HPI (per Admitting provider): This is an 82yo F with a PMH of bilateral hip replacements in 2013, back surgery in [address] Peralta, anxiety, depression, nocturnal hypoxemia, h/o CVA in 2011 per patient, autoimmune hepatitis and other medical problems listed below who presents with left hip pain that started last night. Patient was working in laundry room when she made a sudden movement and felt a sting on the outside of her L hip. Is unclear about what exactly she was doing at the time that would clarify the mechanism of injury. Patient ambulates with cane and was able to doing light housework for the rest of the night. Awoke during the night with worsening pain and was unable to ambulate by early afternoon today. Tried doing PT exercises but was in too much pain. Called Dr. Peralta's office but was encouraged to come to ED for further evaluation. After back surgeries in 2017, patient started to attend out-patient PT to help with gait stabilization and conditioning. States that she has made a lot of progress but is continuing to work at becoming "less wobbly" with ambulation. Denies fever, chills, CP, SOB, abd pain, nausea, vomiting, dysuria, diarrhea or constipation. Denies any numbness, tingling or weakness in extremities. Left hip pain is significantly reduced after pain medication given in ED. . Physical Exam (per Admitting): General Appearance: no apparent distress, + thin, + pertinent finding ( Resting comfortably, conversational. ) Head: normocephalic, atraumatic Eyes: normal inspection, PERRL, sclerae normal ENT: normal ENT inspection, hearing grossly normal, pharynx normal (moist mucous membranes ) Neck: supple, thyroid normal, trachea midline Respiratory/Chest: chest non-tender, lungs clear, normal breath sounds, no respiratory distress, no accessory muscle use Cardiovascular: regular rate, rhythm, no edema, no murmur, normal peripheral pulses Abdomen/GI: non tender, soft, no organomegaly Extremities/Musculoskelatal: no calf tenderness, normal capillary refill, no pedal edema, + pertinent finding (Edema overlying L hip at greater trochanter. No bruising visualized. ROM limited by pain. MOUSTAPHA intact. Deferred ambulation 2/2 pain.) Neurologic/Psych: no motor/sensory deficits, alert, normal mood/affect, oriented x 3 Skin: normal color, warm/dry Hospital Course LEFT HIP PAIN Presented to ED after spontaneous onset severe left hip pain without associated trauma. Seen by Ortho. Topping to have abductor strain with avulsion and hematoma. Hip aspirated to rule out infection. Aspirate was grossly bloody; gram stain showed moderate WBC's, no bacteria; culture negative No need for surgical intervention. Analgesics PRN. Increase activity as tolerated. PT / OT. UTI (present on admission) Urine culture growing E coli and alpha Strep. Chronic urinary urgency / incontinence. Afebrile. ? infection vs colonization. Received ceftriaxone. Transition to oral therapy with amoxicillin. GERD Continue PPI. HISTORY AUTOIMMUNE HEPATITIS Continue azathioprine. HISTORY AF Now in NSR. AMBULATORY DYSFUNCTION PT / OT evals. VTE PROPHYLAXIS Initially received SQ heparin. Heparin discontinued due to left hip hematoma. SCD's. Ambulate as able. DISPOSITION Needs skilled care due to her ambulatory dysfunction. Arrangements being made for transfer to [place] [facility]. Family Medicine follow-up with Dr. Mejia. Ortho follow-up with Dr. Kyle BRANDT. . Discharge Instructions Date of Service Aug 28, 2017. Admission Reason for Admission: left hip pain . Discharge Discharge Diagnosis / Problem: hematoma left hip, suspected abductor strain with avulsion Discharge Goals Goal(s): Decrease discomfort, Increase independence Activity Recommendations Activity Level: Assistance Required Therapies: Physical Therapy, Occupational Therapy No active abduction left hip for 6 months. . Additional Information Patient informed of condition: Yes Advance Directives: Yes DNR: Yes Level of Care: Skilled Communicable Disease: No Prognosis: Improving Fontaine Catheter: No Instructions / Follow-Up Instructions / Follow-Up APPOINTMENTS: FAMILY MEDICINE Dr. Mejia Please arrange for appointment when discharged from your facility. Thank you for receiving this patient in transfer. Please call if you have any questions. Kamran Lockett . Current Hospital Diet Patient's current hospital diet: Regular Diet Discharge Diet Recommended Diet: AHA Diet (Heart Healthy) Pending Studies Studies pending at discharge: no Physician Orders On Transfer Special Precautions: Aspiration precautions. (patient declines thickened liquids) Fall precautions. . Vital Signs: Routine. . Weigh: Routine. . Additional Orders: VTE PROPHYLAXIS: SCD's. . Medical Emergencies . Who to Call and When: Medical Emergencies: If at any time you feel your situation is an emergency, please call 911 immediately. . Non-Emergent Contact Non-Emergency issues call your: Primary Care Provider, Hospital Doctor . . "Provider Documentation" section prepared by Kamran Lockett. . Core Measure Problem Core Measures: None [place] Drug Monitoring Program Search Results: patient reviewed within database, no issues identified .
[2017-08-28 18:17] VITALS: BP 129/71; PULSE 75; TEMP 36.6; O2SAT 94
== END 2017-08-28 18:33 ==
LOC: EDBD 16:56 → C.EDC 16:57 → C.MSW 19:54 → ENRESERV 20:13
PROVIDERS: ADMIT Hospitalist; ATTEND Hospitalist
DX: S76.212A Strain of adductor muscle, fascia and tendon of left thigh, initial encounter (principal); N39.0 Urinary tract infection, site not specified; B96.20 Unspecified Escherichia coli [E. coli] as the cause of diseases classified elsewhere; I48.0 Paroxysmal atrial fibrillation; E78.5 Hyperlipidemia, unspecified; K21.9 Gastro-esophageal reflux disease without esophagitis; F41.9 Anxiety disorder, unspecified; F32.9 Major depressive disorder, single episode, unspecified; K44.9 Diaphragmatic hernia without obstruction or gangrene; K57.30 Diverticulosis of large intestine without perforation or abscess without bleeding; M43.16 Spondylolisthesis, lumbar region; Z86.73 Personal history of transient ischemic attack (TIA), and cerebral infarction without residual deficits; Z86.718 Personal history of other venous thrombosis and embolism; Z87.891 Personal history of nicotine dependence; Z79.899 Other long term (current) drug therapy; X50.0XXA Overexertion from strenuous movement or load, initial encounter; K22.2 Esophageal obstruction; R26.9 Unspecified abnormalities of gait and mobility; Z96.643 Presence of artificial hip joint, bilateral; S70.02XA Contusion of left hip, initial encounter

== ENCOUNTER 2017-10-03 14:51 | Observation (INO) | payer BC ==
[~2017-10-03] VITALS: Ht 167.6 cm; Wt 51.3 kg
[~2017-10-03 14:51] MED LIST changes: -ACET1TAB84 PO; +ACET650T9 PO; +AMX250 PO; -AZAT50TA17 PO; +AZAT50TA33 PO; +CALC-214 PO; -GABA1CAP4 PO; -HYDR-4383 PO; -HYDR4TAB78 PO; -MAGN1CAP2 PO; -MDRDP21 PO; -MELATAB2 PO; +MIRT15TA3 PO; -POTA550T4 PO; -TPRSR/25 PO
[2017-10-03] MEDS ORDERED: DiphenhydrAMINE HCL 50 MG/ML VIAL IV STA (15:22)
[2017-10-03] MEDS ORDERED: METHYLPREDNISOLONE 125 MG VIAL IV STA (15:22)
[2017-10-03 15:23] VITALS: PULSE 108; O2SAT 98
[2017-10-03] MEDS ORDERED: OPTIRAY 320 IV PRN (15:45)
[2017-10-03] MEDS ORDERED: MAGN400C2 PO (15:49)
[2017-10-03] MEDS ORDERED: POTA75TA PO (15:49)
[2017-10-03 15:50] LABS: BASO % 0.6 %; BASO ABS # 0.03 K/uL (0-0.2); EOS % 2.1 %; EOS ABS # 0.11 K/uL (0-0.5); HEMATOCRIT 35.6 % (37-47); HEMOGLOBIN 11.7 g/dL (12.0-16.0); LYMPH % 25.1 %; LYMPH ABS # 1.31 K/uL (1.2-3.4); MEAN CELL VOLUME 89.9 fL (80-100); MEAN CORPUSCULAR HEMOGLOBIN 29.5 pg (25-34); MEAN CORPUSCULAR HGB CONC 32.9 g/dl (32-36); MEAN PLATELET VOLUME 9.9 fL (7.4-10.4); MONO % 11.5 %; NEUT % 60.7 %; NEUT ABS # 3.17 K/uL (1.4-6.5); PLATELET COUNT 244 K/uL (130-400); RED CELL DISTRIBUTION WIDTH CV 15.8 % (11.5-14.5); RED CELL DISTRIBUTION WIDTH SD 52.2 fL (36.4-46.3); WHITE BLOOD COUNT 5.22 K/uL (4.8-10.8)
[2017-10-03 15:51] LABS: ISTAT CREATININE 0.7 mg/dl (0.6-1.3); ISTAT IONIZED CALCIUM 1.19 mmol/l (1.12-1.32); ISTAT POTASSIUM 3.7 mEq/L (3.3-5.0)
--- NOTE | 2017-10-03 15:51 | EMERGENCY ROOM VISIT NOTE ---
ED Visit Note First contact with patient: 15:09 CHIEF COMPLAINT: Shortness of breath and rapid heartbeat HISTORY OF PRESENTING ILLNESS: This is an 82-year-old female with past medical history significant for DVT, CVA, and atrial fibrillation who presents to the emergency department with complaint of shortness of breath and heart palpitations that started this morning around 7 AM. The patient states that she had just gotten up and was walking down her hallway to let her dog out when she started to feel like her heart was pounding, she felt very short of breath and felt like she might pass out several times. She states that she also felt weak all over. She states that she tried to feel her pulse and it was going too fast for her to be able to count. She states that she was able to get herself back to her bedroom lay down in her bed and put some oxygen on, which helped her symptoms. She states that the heart pounding symptoms and the shortness of breath lasted for approximately 4 hours and then started to resolve. She reports a history of an episode of atrial fib several years ago, but is not currently on any medications to treat this and is not on any blood thinners. She states she might have 4 or 5 episodes a year where she feels her heart fluttering, she says they usually only last a few minutes and resolve on their own. Patient spoke with her primary care provider's office today and the instructed her to go to the ER for evaluation. Patient denies any headaches , neck pain or stiffness, chest pain, back pain, abdominal pain, nausea or vomiting, diaphoresis, recent illness, fevers or chills, cough, hemoptysis, leg pain or swelling, urinary symptoms, or rash. REVIEW OF SYSTEMS: A complete 10 point review of systems was reviewed with the patient with pertinent positives and negatives as per history of present illness. All else were negative. PAST MEDICAL HISTORY: Reviewed in chart. SOCIAL HISTORY: Lives at home. Denies tobacco use, alcohol use, recreational drug use. ALLERGIES: Reviewed in chart. PHYSICAL EXAM: CONSTITUTIONAL: Pleasant and cooperative. No acute distress. Well hydrated, well appearing and well nourished. HEENT: Normocephalic, atraumatic. Pupils equal, round and reactive to light, EOMI. TMs normal. Pharynx normal. Moist mucous membranes. NECK: Supple, full active range of motion without discomfort. No cervical adenopathy. 2+ carotid pulses, no carotid bruits bilaterally. No JVD bilaterally. RESPIRATORY: Diminished in the bases to auscultation bilaterally with no wheezing, crackles, rhonchi or stridor. Equal expansion bilaterally. CARDIOVASCULAR: Regular rate and rhythm with no murmurs, rubs or gallops. Normal peripheral perfusion with 2+ pulses in all 4 extremities. No edema. GASTROINTESTINAL: Soft, nontender, nondistended. No palpable masses or HSM. Bowel sounds present in all quadrants. MUSCULOSKELETAL: Full range of motion of all joints without discomfort. INTEGUMENTARY: No rash or other significant dermatologic conditions noted. NEUROLOGIC: Alert and oriented X 4 with normal affect. Cranial nerves II-XII grossly intact. No focal neurologic deficits noted. There is mild left facial droop noted, which patient and her daughter report her baseline after a stroke in 2011. No pronator drift. Normal speech. ED COURSE AND MEDICAL DECISION MAKING: CC: Patient presenting with complaint of shortness of breath, heart palpitations , and near syncope DIFFERENTIAL DIAGNOSIS: Includes, but not limited to ACS, PE, aortic dissection , pneumonia, cardiac dysrhythmia, carotid stenosis, carotid dissection, CVA, brain aneurysm, among others. INTERPRETATION OF LABS: No leukocytosis, no anemia, no significant electrolyte abnormalities, normal renal function, normal liver enzymes. POC troponin negative. Coagulation factors within normal limits with the exception of d- dimer which is significantly elevated. UA concerning for possible UTI, urine culture pending. IMAGING: CT ANGIOGRAPHY OF THE CHEST, PULMONARY EMBOLUS PROTOCOL CLINICAL HISTORY: Near syncope. Shortness of breath. Atrial fibrillation. COMPARISON STUDY: Chest radiograph August 25, 2017. TECHNIQUE: Patient was premedicated for IV dye allergy as per ER protocol. Following IV administration of 115 mL of Optiray-320, helical axial images of the chest were obtained utilizing the pulmonary embolus protocol. Maximal intensity projections and sagittal and coronal reformats were viewed on an independent 3D workstation. IV contrast was administered without complication. A dose lowering technique was utilized adhering to the principles of ALARA. CT DOSE: 530.87 mGy.cm FINDINGS: No pulmonary emboli are identified. There is no evidence for thoracic aortic dissection. The size of the heart is at the upper limits of normal. There is no pericardial effusion. There are no enlarged thoracic lymph nodes. There is no consolidation to suggest pneumonia. No pneumothorax or pleural effusion is present. Intrathecal electrodes is noted. Postoperative findings within lumbar spine are partially imaged. Biliary ductal dilatation is unchanged since prior abdominal CT likely related to prior cholecystectomy. IMPRESSION: 1. No pulmonary emboli identified. 2. No acute intrathoracic findings. ----- CHEST ONE VIEW PORTABLE CLINICAL HISTORY: Respiratory distress. COMPARISON STUDY: Chest radiograph August 25, 2017. FINDINGS: Intrathecal electrode and postoperative findings within the cervical spine are incidentally noted. There is no pneumothorax or pleural effusion. Cardiomediastinal silhouette is normal. There is no evidence for pulmonary edema. There is mild lower lung interstitial thickening. IMPRESSION: 1. No acute cardiopulmonary findings. 2. Lower lung interstitial thickening which favors atelectasis. ----- CT OF THE HEAD WITHOUT CONTRAST CLINICAL HISTORY: Near syncope. COMPARISON STUDY: MRI of the brain August 28, [address] May 08, 2017. TECHNIQUE: Helical axial images of the head were obtained without IV contrast. Automated exposure control was utilized for the study. A dose lowering technique was utilized adhering to the principles of ALARA. FINDINGS: No acute intracranial hemorrhage, midline shift or mass effect is present. Ventricular system is normal. Basilar cisterns are patent. There are no extra-axial collections. Fagan-white differentiation is maintained. There are no findings to suggest acute dural sinus thrombosis or acute territorial infarct. There are no significant calvarial abnormalities. Visualized portions of the sinuses and mastoid air cells are clear. IMPRESSION: No acute intracranial findings. ----- CTA ANGIOGRAPHY OF THE HEAD CLINICAL HISTORY: Near syncope. COMPARISON STUDY: Head CT May 08, 2017 and MRI the brain August 28, 2015. TECHNIQUE: The patient was premedicated for IV dye allergy as per ER protocol. Helical axial images of the head were obtained following uneventful intravenous administration of 115 cc of Optiray 320. A dose lowering technique was utilized adhering to the principles of ALARA. FINDINGS: The bilateral M1, M2, A1 and A2 segments are patent. There is no abrupt vessel cut off. There is no intracranial dissection. Posterior circulation is intact. No acute intracranial hemorrhage, midline shift or mass effect is present. Brain volume is normal. There is mild atherosclerotic plaque within the bilateral cavernous carotids. IMPRESSION: Unremarkable CTA of the intracranial circulation for age. ----- CT ANGIOGRAPHY OF THE NECK WITH CONTRAST CLINICAL HISTORY: Near syncope. COMPARISON STUDY: No previous studies for comparison. Technique: The patient was premedicated for IV dye allergy as per ER protocol. CT angiography of the carotid and vertebral arteries was obtained using [employer] IV and 3D reconstruction on an independent workstation. NASCET criteria was utilized. A dose lowering technique was utilized adhering to the principles of ALARA. Findings: The bilateral common carotid, internal carotid and vertebral arteries are patent. There is no dissection or significant stenosis within these vessels. There is no cervical lymphadenopathy. Postoperative finding within the cervical spine are similar to exam of May 08, 2017. There is no acute cervical spine fracture. There is no prevertebral edema. The chest will be reported separately. IMPRESSION: Unremarkable CTA of the neck. No stenosis or dissection. EKG: Shows normal sinus rhythm with a rate of 69 bpm, left anterior fascicular block, no significant changes when compared to EKG from 02/16/2014 by my interpretation. MEDICATION RECONCILIATION: I attest that I have personally reviewed the patient 's current medication list. INITIAL VITAL SIGNS REVIEW: I reviewed the patient's initial vital signs and interpret them as follows: T: Afebrile; BP: Normotensive; HR: Within normal limits; RR: Within normal limits; Pulse Ox: Within normal limits on room air. Blood pressure screening: The patient was found to have normal blood pressure on screening and does not require follow-up for repeat blood pressure check. SUMMARY: Patient was evaluated at bedside, history and physical exam performed. Patient is alert and oriented, in no acute distress, resting calmly in the stretcher. EKG reviewed at bedside showing normal sinus rhythm, noting normal sinus rhythm with a rate of 70s on the monitor. Patient denies any complaints of shortness of breath, lightheadedness, or palpitations at this time, but states that she feels fatigued. Orders were placed at bedside for labs, UA, chest x-ray to evaluate for cardiopulmonary disease. Patient discussed with Dr. Allison, who agrees with my assessment and plan. I discussed CT imaging of the chest with Dr. Allison, he recommended performing a d-dimer first. D-dimer is elevated, therefore a CT a of the chest was ordered to rule out PE, as well as CTA of the brain and neck to evaluate for other causes of syncope. Patient reports history of allergic reaction to IV dye, she was premedicated with IV Solu-Medrol and IV Benadryl prior to CT studies. Labs and imaging reviewed as above, CT imaging is unremarkable no acute findings. Given the patient's report of rapid heart with significant shortness of breath and near syncope multiple times this morning, I do not feel she is safe to be discharged home. I spoke on the phone with Dr. Guy, hospitalist, who agrees to evaluate the patient for admission. Patient reassessed multiple times throughout ED stay, she remained well- appearing, with stable vital signs and no complaints. Patient was updated on all results and plan for admission, she verbalized understanding and was agreeable to this plan. The patient was stable at time of admission. Problem List Medical Problems: (1) Anxiety Status: Chronic (2) Deep venous thrombosis Status: Chronic (3) Depression Status: Chronic (4) Diverticulosis Status: Chronic (5) Dyslipidemia Status: Chronic (6) GERD (gastroesophageal reflux disease) Status: Chronic (7) h/o Schatski's ring Status: Chronic (8) H/O: CVA (cerebrovascular accident) Permanent Comment: 2011 per patient Status: Chronic (9) Hiatal hernia Status: Chronic (10) History of peptic ulcer disease Status: Chronic (11) Paroxysmal atrial fibrillation Status: Chronic (12) Spondylolisthesis, lumbar region Status: Chronic Surgical Problems: (1) H/O blepharoplasty Status: Chronic (2) H/o cervical laminectomy Status: Chronic (3) H/O elbow replacement Status: Resolved (4) H/O esophagogastroduodenoscopy Status: Chronic (5) H/O esophagogastroduodenoscopy Permanent Comment: 08/06/15- Schatzki's ring, small hiatal hernia, gastritis Status: Chronic (6) H/o excision radial head Status: Chronic (7) H/O hernia repair Status: Chronic (8) H/o paravaginal defect repair Status: Chronic (9) H/o sacral nerve stimulator implant Status: Chronic (10) H/o vesicourethropexy Status: Chronic (11) H/O: hysterectomy Status: Resolved (12) Hx of cholecystectomy Status: Resolved (13) S/P appendectomy Status: Resolved (14) S/P cataract surgery Status: Chronic (15) S/P hip replacement Permanent Comment: bilateral Status: Chronic Current/Historical Medications Scheduled Azathioprine (Imuran), 1 TAB PO HS Clonazepam (Klonopin), 0.5 MG PO HS Magnesium Oxide (Magnesium Oxide), 1 CAP PO DAILY Mirtazapine (Remeron), 1 TAB PO HS Pantoprazole (Protonix), 40 MG PO QAM Potassium (Potassium), 250 MG PO DAILY Probiotic Product (Trubiotics), 1 CAP PO QAM Scheduled PRN Acetaminophen (Acetaminophen ER), 1 TAB PO Q8 PRN for Pain Allergies Coded Allergies: Duloxetine (Verified Allergy, Severe, SEDATION & BAD DREAMS, 10/03/17) Iodinated Diagnostic Agents (Verified Allergy, Intermediate, Rash/Hives, ) Oxycodone (Verified Allergy, Intermediate, PERCOCET-ITCHING OF ARMS, SHOULDERS, 10/03/17) Chlorhexidine (Unverified Allergy, Unknown, RASH, 10/03/17) Corticosteroids (Verified Allergy, Unknown, STERIOD INJECTIONS - FLUSHING AND BLOTCHING REDNESS, 10/03/17) Dipyridamole (Verified Allergy, Unknown, reaction unknown, 05/08/17) Mepivacaine (Verified Allergy, Unknown, CAN'T REMEMBER?, 10/03/17) Morphine (Verified Allergy, Unknown, RASH, 10/03/17) Shellfish (Verified Allergy, Unknown, RASH, 10/03/17) Codeine (Verified Adverse Reaction, Mild, GI UPSET, 10/03/17) Vital Signs Date Time Temp Pulse Resp B/P (MAP) Pulse Ox O2 Delivery O2 Flow Rate FiO2 10/03/17 19:03 70 18 117/64 94 Room Air 10/03/17 17:56 62 19 110/69 95 Room Air 10/03/17 16:53 66 123/66 98 10/03/17 15:44 Room Air 10/03/17 15:40 95 Room Air 10/03/17 15:13 70 10/03/17 15:02 36.6 80 20 116/72 93 Room Air Laboratory Results 10/03/17 15:34 Red Blood Count 3.96, Mean Corpuscular Volume 89.9, Mean Corpuscular Hemoglobin 29.5, Mean Corpuscular Hemoglobin Concent 32.9, Mean Platelet Volume 9.9, Neutrophils (%) (Auto) 60.7, Lymphocytes (%) (Auto) 25.1, Monocytes (%) (Auto) 11.5, Eosinophils (%) (Auto) 2.1, Basophils (%) (Auto) 0.6, Neutrophils # (Auto ) 3.17, Lymphocytes # (Auto) 1.31, Monocytes # (Auto) 0.60, Eosinophils # (Auto ) 0.11, Basophils # (Auto) 0.03 10/03/17 15:34 Test 10/03/17 15:34 10/03/17 15:37 10/03/17 15:38 10/03/17 16:55 White Blood Count 5.22 K/uL (4.8-10.8) Red Blood Count 3.96 M/uL (4.2-5.4) Hemoglobin 11.7 g/dL (12.0-16.0) Hematocrit 35.6 % (37-47) Mean Corpuscular Volume 89.9 fL (80-100) Mean Corpuscular Hemoglobin 29.5 pg (25-34) Mean Corpuscular Hemoglobin Concent 32.9 g/dl (32-36) Platelet Count 244 K/uL (130-400) Mean Platelet Volume 9.9 fL (7.4-10.4) Neutrophils (%) (Auto) 60.7 % Lymphocytes (%) (Auto) 25.1 % Monocytes (%) (Auto) 11.5 % Eosinophils (%) (Auto) 2.1 % Basophils (%) (Auto) 0.6 % Neutrophils # (Auto) 3.17 K/uL (1.4-6.5) Lymphocytes # (Auto) 1.31 K/uL (1.2-3.4) Monocytes # (Auto) 0.60 K/uL (0.11-0.59) Eosinophils # (Auto) 0.11 K/uL (0-0.5) Basophils # (Auto) 0.03 K/uL (0-0.2) RDW Standard Deviation 52.2 fL (36.4-46.3) RDW Coefficient of Variation 15.8 % (11.5-14.5) Immature Granulocyte % (Auto) 0.0 % Immature Granulocyte # (Auto) 0.00 K/uL (0.00-0.02) Prothrombin Time 10.7 SECONDS (9.0-12.0) Prothromb Time International Ratio 1.0 (0.9-1.1) Activated Partial Thromboplast Time 24.5 SECONDS (21.0-31.0) Partial Thromboplastin Ratio 0.9 D-Dimer 3310 ug/L FEU (0-500) Est Creatinine Clear Calc Drug Dose 44.5 ml/min Estimated GFR () 83.3 Estimated GFR (Non- 71.9 BUN/Creatinine Ratio 24.0 (10-20) Calcium Level 9.1 mg/dl (8.5-10.1) Total Bilirubin 0.3 mg/dl (0.2-1) Aspartate Amino Transf (AST/SGOT) 17 U/L (15-37) Alanine Aminotransferase (ALT/SGPT) 16 U/L (12-78) Alkaline Phosphatase 110 U/L (45-117) Total Protein 7.8 gm/dl (6.4-8.2) Albumin 3.4 gm/dl (3.4-5.0) Globulin 4.4 gm/dl (2.5-4.0) Albumin/Globulin Ratio 0.8 (0.9-2) Bedside Hemoglobin 12.2 g/dl (12.0-16.0) Bedside Hematocrit 36 % (37-47) Bedside Sodium 140 mEq/L (135-144) Bedside Potassium 3.7 mEq/L (3.3-5.0) Bedside Chloride 102 mEq/L (101-112) Bedside Total CO2 24 mEq/l (24-31) Anion Gap 19.0 mmol/L (16-25) Bedside Blood Urea Nitrogen 19 mg/dl (7-18) Bedside Creatinine 0.7 mg/dl (0.6-1.3) Bedside Glucose (other) 93 mg/dl (70-99) Bedside Ionized Calcium (Yannick) 1.19 mmol/l (1.12-1.32) Bedside Troponin I < 0.030 ng/ml (0-0.045) Urine Color YELLOW Urine Appearance CLEAR (CLEAR) Urine pH 6.0 (4.5-7.5) Urine Specific [place] 1.008 (1.000-1.030) Urine Protein NEG (NEG) Urine Glucose (UA) NEG (NEG) Urine Ketones NEG (NEG) Urine Occult Blood 2+ (NEG) Urine Nitrite NEG (NEG) Urine Bilirubin NEG (NEG) Urine Urobilinogen NEG (NEG) Urine Leukocyte Esterase SMALL (NEG) Urine WBC (Auto) 10-30 /hpf (0-5) Urine RBC (Auto) 5-10 /hpf (0-4) Urine Hyaline Casts (Auto) 0 /lpf (0-5) Urine Epithelial Cells (Auto) 0-5 /lpf (0-5) Urine Bacteria (Auto) 1+ (NEG) Medications Administered Medications (Trade) Dose Ordered Sig/Kelsea Route Start Time Stop Time Status Last Admin Dose Admin Diphenhydramine HCl (Benadryl Inj) 25 mg NOW STAT IV 10/03/17 15:22 10/03/17 15:28 DC 10/03/17 16:53 25 MG Methylprednisolone Sodium Succinate (Solu-Medrol IV) 125 mg NOW STAT IV 10/03/17 15:22 10/03/17 15:28 DC 10/03/17 16:52 125 MG Sodium Chloride 500 ml @ 999 mls/hr Q31M STAT IV 10/03/17 16:13 10/03/17 16:43 DC 10/03/17 16:52 999 MLS/HR Departure Information Impression Primary Impression: Heart palpitations Additional Impressions: Near syncope Shortness of breath Dispostion Admitted as an inpatient Condition GOOD Referrals Richa Mejia M.D. (PCP) Patient Instructions [facility] Problem Qualifiers
[2017-10-03 15:58] LABS: PTT PATIENT 24.5 SECONDS (21.0-31.0)
--- NOTE | 2017-10-03 15:59 | DIAGNOSTIC IMAGING REPORT ---
CHEST ONE VIEW PORTABLE CLINICAL HISTORY: Respiratory distress. COMPARISON STUDY: Chest radiograph August 25, 2017. FINDINGS: Intrathecal electrode and postoperative findings within the cervical spine are incidentally noted. There is no pneumothorax or pleural effusion. Cardiomediastinal silhouette is normal. There is no evidence for pulmonary edema. There is mild lower lung interstitial thickening. IMPRESSION: 1. No acute cardiopulmonary findings. 2. Lower lung interstitial thickening which favors atelectasis. Electronically signed by: Khai Pichardo M.D. 10/03/2017 3:58 PM Dictated Date/Time: 10/03/2017 3:56 PM
[2017-10-03 16:08] LABS: ALBUMIN 3.4 gm/dl (3.4-5.0); CALCIUM 9.1 mg/dl (8.5-10.1); CREATININE 0.77 mg/dl (0.60-1.20); POTASSIUM 3.6 mmol/L (3.5-5.1)
[2017-10-03 16:11] LABS: TOTAL PROTEIN 7.8 gm/dl (6.4-8.2)
[2017-10-03] MEDS ORDERED: SODIUM CHLORIDE 0.9% 500ML 500 ML IV STA (16:13)
--- NOTE | 2017-10-03 18:13 | DIAGNOSTIC IMAGING REPORT ---
CT OF THE HEAD WITHOUT CONTRAST CLINICAL HISTORY: Near syncope. COMPARISON STUDY: MRI of the brain August 28, [address] May 08, 2017. TECHNIQUE: Helical axial images of the head were obtained without IV contrast. Automated exposure control was utilized for the study. A dose lowering technique was utilized adhering to the principles of ALARA. FINDINGS: No acute intracranial hemorrhage, midline shift or mass effect is present. Ventricular system is normal. Basilar cisterns are patent. There are no extra-axial collections. Fagan-white differentiation is maintained. There are no findings to suggest acute dural sinus thrombosis or acute territorial infarct. There are no significant calvarial abnormalities. Visualized portions of the sinuses and mastoid air cells are clear. IMPRESSION: No acute intracranial findings. Electronically signed by: Khai Pichardo M.D. 10/03/2017 6:11 PM Dictated Date/Time: 10/03/2017 6:09 PM
--- NOTE | 2017-10-03 18:23 | DIAGNOSTIC IMAGING REPORT ---
CT ANGIOGRAPHY OF THE NECK WITH CONTRAST CLINICAL HISTORY: Near syncope. COMPARISON STUDY: No previous studies for comparison. Technique: The patient was premedicated for IV dye allergy as per ER protocol. CT angiography of the carotid and vertebral arteries was obtained using [employer] IV and 3D reconstruction on an independent workstation. NASCET criteria was utilized. A dose lowering technique was utilized adhering to the principles of ALARA. Findings: The bilateral common carotid, internal carotid and vertebral arteries are patent. There is no dissection or significant stenosis within these vessels. There is no cervical lymphadenopathy. Postoperative finding within the cervical spine are similar to exam of May 08, 2017. There is no acute cervical spine fracture. There is no prevertebral edema. The chest will be reported separately. IMPRESSION: Unremarkable CTA of the neck. No stenosis or dissection. Electronically signed by: Khai Pichardo M.D. 10/03/2017 6:22 PM Dictated Date/Time: 10/03/2017 6:17 PM
--- NOTE | 2017-10-03 18:26 | DIAGNOSTIC IMAGING REPORT ---
CTA ANGIOGRAPHY OF THE HEAD CLINICAL HISTORY: Near syncope. COMPARISON STUDY: Head CT May 08, 2017 and MRI the brain August 28, 2015. TECHNIQUE: The patient was premedicated for IV dye allergy as per ER protocol. Helical axial images of the head were obtained following uneventful intravenous administration of 115 cc of Optiray 320. A dose lowering technique was utilized adhering to the principles of ALARA. FINDINGS: The bilateral M1, M2, A1 and A2 segments are patent. There is no abrupt vessel cut off. There is no intracranial dissection. Posterior circulation is intact. No acute intracranial hemorrhage, midline shift or mass effect is present. Brain volume is normal. There is mild atherosclerotic plaque within the bilateral cavernous carotids. IMPRESSION: Unremarkable CTA of the intracranial circulation for age. Electronically signed by: Khai Pichardo M.D. 10/03/2017 6:25 PM Dictated Date/Time: 10/03/2017 6:22 PM
--- NOTE | 2017-10-03 18:36 | DIAGNOSTIC IMAGING REPORT ---
CT ANGIOGRAPHY OF THE CHEST, PULMONARY EMBOLUS PROTOCOL CLINICAL HISTORY: Near syncope. Shortness of breath. Atrial fibrillation. COMPARISON STUDY: Chest radiograph August 25, 2017. TECHNIQUE: Patient was premedicated for IV dye allergy as per ER protocol. Following IV administration of 115 mL of Optiray-320, helical axial images of the chest were obtained utilizing the pulmonary embolus protocol. Maximal intensity projections and sagittal and coronal reformats were viewed on an independent 3D workstation. IV contrast was administered without complication. A dose lowering technique was utilized adhering to the principles of ALARA. CT DOSE: 530.87 mGy.cm FINDINGS: No pulmonary emboli are identified. There is no evidence for thoracic aortic dissection. The size of the heart is at the upper limits of normal. There is no pericardial effusion. There are no enlarged thoracic lymph nodes. There is no consolidation to suggest pneumonia. No pneumothorax or pleural effusion is present. Intrathecal electrodes is noted. Postoperative findings within lumbar spine are partially imaged. Biliary ductal dilatation is unchanged since prior abdominal CT likely related to prior cholecystectomy. IMPRESSION: 1. No pulmonary emboli identified. 2. No acute intrathoracic findings. Electronically signed by: Khai Pichardo M.D. 10/03/2017 6:35 PM Dictated Date/Time: 10/03/2017 6:26 PM
[2017-10-03 20:20] VITALS: BP 133/78; PULSE 67; TEMP 36.5; O2SAT 97; BMI 18.7
[2017-10-03] MEDS ORDERED: POTASSIUM CHLORIDE 10 MEQ TABCR PO STA (20:34)
[2017-10-03] MEDS ORDERED: PROCHLORPERAZINE INJ 5 MG in SYRINGE 4 ML IV PRN (20:45)
[2017-10-03] MEDS ORDERED: ACETAMINOPHEN 325 MG TAB PO PRN (20:45)
[2017-10-03] MEDS ORDERED: NITROGLYCERIN 0.4 MG SL PER TAB CHARGE SL PRN (20:45)
[2017-10-03] MEDS ORDERED: TRAMADOL HCL 50 MG TAB PO PRN (20:45)
[2017-10-03] MEDS ORDERED: NSS + 20MEQ KCL 1000ML 1,000 ML IV ONE (21:00)
[2017-10-03] MEDS: CLONAZEPAM 0.5 MG TAB PO SCH (21:00)
[2017-10-03] MEDS ORDERED: IV FLUIDS COMPLETED PRN (21:15)
[2017-10-03] MEDS: ENOXAPARIN 30 MG/0.3 ML SYR SC SCH (21:42)
[2017-10-03] MEDS: MIRTAZAPINE TAB 15 MG TAB PO SCH (21:42)
[2017-10-03] MEDS: PANTOprazole SOD 40 MG TAB PO SCH (21:43)
[2017-10-03] MEDS: AZATHIOPRINE 50 MG TAB PO SCH (21:43)
--- NOTE | 2017-10-03 23:18 | HISTORY & PHYSICAL EXAMINATION ---
DATE OF ADMISSION: 10/03/2017 PRIMARY CARE PHYSICIAN: Richa Mejia MD. CHIEF COMPLAINT: Near syncope, palpitations. HISTORY OF PRESENT ILLNESS: History obtained from patient, daughter, and records. Medical history significant for paroxysmal AFib, hypertension not on meds, , history of CVA as per records. past tobacco abuse, hyperlipidemia, autoimmune hepatitis on Imuran, hx Schatzki's ring/aspiration risk mood disorder, chronic anemia (baseline hemoglobin of 9) Recent confinement last month for left hip pain secondary to adductor strain and avulsion with hematoma. Patient also had E. coli UTI. Hip aspiration done. Patient found to have paroxysmal AFib since 2002. Patient did not need medications and anticoagulation on discharge as per patient account. Transient A. fib episodes 3-4 times a year, spontaneously resolving after a few minutes. Seen by PCP last week in the office, the patient complaining of episodes where she would have near loss consciousness, choking on foods. Blood pressure noted to be elevated which patient attributes to emotional upset. PCP wanted to start Lopressor outpatient. Patient hesitant to initiate medication because she felt that she was not able to have an in-depth discussion with PCP regarding medication at the office. Today, she felt lightheaded. She noted irregular pounding, palpitations "like AFib." Symptoms more prolonged than usual, some shortness of breath. Patient sent to the Emergency Room for evaluation by PCP. Patient currently comfortable. MEDICAL HISTORY: As above. History of CVA in 2011 in [place] which culminated in swallowing issues and left-sided weakness initially. Does not recall being discharged on antiplatelet Rx. SURGERIES: Eye surgery, neck surgery, elbow surgery, hernia repair, cataract surgery, prior bladder tuck/vaginal defect repair, cholecystectomy, radial head removal, hysterectomy. HOME MEDICATIONS: Include Imuran, acetaminophen, mag oxide, Remeron, potassium, probiotic, Protonix. benzo ALLERGIES: CHLORHEXIDINE, CODEINE, DIPYRIDAMOLE, BUPIVACAINE, MORPHINE, OXYCODONE, DULOXETINE, CORTICOSTEROIDS, DYE, SHELLFISH. FAMILY HISTORY: Breast cancer, heart disease, COPD. PERSONAL SOCIAL HISTORY: Past tobacco use. No chronic intake of alcoholic beverages. 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 REVIEW OF SYSTEMS: As per HPI. All 10 systems reviewed. All other ROS negative. PHYSICAL EXAMINATION: VITAL SIGNS: Blood pressure was noted to be 123/63, pulse rate 66, RR 19, temperature 36.7, sats 98 on room air. GENERAL: Noted to be slightly anxious, hyposthenic, no respiratory distress. SKIN: Pallor, warm. HEENT: Pale palpebral conjuctivae. No ptosis. Dry mucosa. NECK: Supple, nontender. CHEST: Clear to auscultation. No tenderness. HEART: Regular rate and rhythm. Systolic murmur. Palpable LE pulses. ABDOMEN: Soft, nontender. EXTREMITIES: No edema. No gross deformities. NEUROLOGIC: Coherent. No gross focality. LABORATORY DATA: Hemoglobin was noted to be 11.7, hematocrit 35.6, white cell count 5.32, platelets 244. Sodium 138, potassium 3.6, chloride 104, CO2 of 26, BUN 90, creatinine 1.7, glucose was noted to be 88. Troponin was noted to be 0.03. CT chest, no PE. EKG as per my interpretation, rate 70, normal sinus rhythm, LAD, LAFB, no ischemia, PRWP. UA showed small WBCs positive, epithelial cells. ASSESSMENT: 1. Near syncope secondary to palpitations question of recurrent atrial fibrillation. Patient consistently in normal sinus rhythm during ER stay. Rule out orthostasis . 2. Hypertension, not on meds hesitant to take beta alena prescribed by PCP. BP somewhat on the lower side. 3. History of cerebrovascular accident as per records. 4. Chronic anemia, hemoglobin at baseline. 5. Autoimmune hepatitis on chronic Imuran. 6. Past tobacco abuse. 7. Malnutrition, low BMI Patient attributes decreased body weight to swallowing issues. She was told by her GI specialist that repeat endoscopic stretching for esophageal issues would be too risky at her age. 8 Asymptomatic pyuria, contaminated specimen PLAN: Observation, PCU 2D echo RE near syncope . Check orthostatic vitals. Patient agrees to take beta alena only if evidence of recurrent AFib found. She will also think about anticoagulation if A. fib found. (She admits that she does not like taking a lot of pills.) Cardiology eval if patient develops AFib inpatient. May need outpatient cardiac monitoring to document arrhythmia. Nutrition consult RE low BMI DVT prophylaxis, Lovenox subQ. DNR. MTDD
[2017-10-03 23:37] VITALS: BP 112/64; PULSE 70; TEMP 36.7; O2SAT 99
[2017-10-04] VITALS (9 sets, daily range): BP systolic 94–135; BP diastolic 53–81; PULSE 55–69; TEMP 36.3–36.7; O2SAT 95–100; Ht 167.6 cm; Wt 51.3 kg
[2017-10-04] MEDS: CLONAZEPAM 0.5 MG TAB PO SCH ×2 (02:04→21:26)
[2017-10-04 07:11] LABS: HEMATOCRIT 32.4 % (37-47); HEMOGLOBIN 10.5 g/dL (12.0-16.0); IG# 0.01 K/uL (0.00-0.02); LYMPH % 11.1 %; LYMPH ABS # 0.71 K/uL (1.2-3.4); MEAN CORPUSCULAR HEMOGLOBIN 29.5 pg (25-34); MEAN CORPUSCULAR HGB CONC 32.4 g/dl (32-36); MEAN PLATELET VOLUME 10.1 fL (7.4-10.4); MONO % 6.3 %; NEUT % 82.4 %; NEUT ABS # 5.25 K/uL (1.4-6.5); PLATELET COUNT 225 K/uL (130-400); RED CELL DISTRIBUTION WIDTH SD 53.2 fL (36.4-46.3); WHITE BLOOD COUNT 6.37 K/uL (4.8-10.8)
[2017-10-04 07:54] LABS: CALCIUM 8.9 mg/dl (8.5-10.1); CREATININE 0.79 mg/dl (0.60-1.20); POTASSIUM 4.3 mmol/L (3.5-5.1)
[2017-10-04] MEDS: PANTOprazole SOD 40 MG TAB PO SCH ×2 (08:01→21:26)
[2017-10-04] MEDS: LACTOBACILLUS ACIDOPHILUS (FLORANEX) TAB PO SCH (08:01)
--- NOTE | 2017-10-04 12:56 | ECHOCARDIOGRAM REPORT ---
*NOTICE TO RECEIVING [employer]Y This information is strictly Confidential and protected under [place] law. [place] law prohibits you from making any further disclosure of this information unless further disclosure is expressly permitted by the written consent of the person to whom it pertains or is authorized by law. A general authorization for the release of medical or other information is not sufficient for this purpose. Hospital accepts no responsibility if the information is made available to any other person, INCLUDING THE PATIENT. Interpretation Summary * Name: TAYA BOLDEN Study Date: 10/04/2017 11:20 AM BP: 101/62 mmHg * Patient Location: [facility]\S\[id number]\S\2 HR: 66 * : 1935 (M/d/yyyy) Gender: Female Height: 66 in * Age: 82 yrs Ethnicity: CA Weight: 110 lb * Ordering Physician: Shady Rausch * Referring Physician: Self, Referred * Performed By: Shady Ashley RDCS * * Reason For Study: Palpitations * BSA: 1.6 m2 * -- Conclusions -- * The left ventricle is normal in size. * There is normal left ventricular wall thickness. * Left ventricular systolic function is normal. * The left ventricular wall motion is normal. * Ejection Fraction = 55-60%. * Grade I diastolic dysfunction, (abnormal relaxation pattern). * Aortic valve sclerosis mild, without significant aortic valvular stenosis. * Trace aortic regurgitation. * There is mild mitral regurgitation. * There is moderate tricuspid regurgitation. * The inferior vena cava is mildly dilated. Procedure Details * A complete two-dimensional transthoracic echocardiogram was performed (2D, M-mode, Doppler and color flow Doppler). * The study was technically adequate. Left Ventricle * The left ventricle is normal in size. * There is normal left ventricular wall thickness. * Ejection Fraction = 55-60%. * Left ventricular systolic function is normal. * The left ventricular wall motion is normal. Right Ventricle * The right ventricle is normal in size and function. Atria * The left atrial size is normal. * Right atrial size is normal. * No ASD detected; PFO is not assessed. Mitral Valve * There is mild to moderate mitral annular calcification. * There is no mitral valve stenosis. * There is mild mitral regurgitation. Tricuspid Valve * The tricuspid valve anatomy is normal. * There is no tricuspid stenosis. * Doppler findings do not suggest pulmonary hypertension. * There is moderate tricuspid regurgitation. Aortic Valve * The aortic valve is trileaflet. * Aortic valve sclerosis mild, without significant aortic valvular stenosis. * Trace aortic regurgitation. Pulmonic Valve * The pulmonic valve is not well visualized. * Trace pulmonic valvular regurgitation. Great Vessels * The aortic root is normal size. Pericardium/Pleural * There is no pericardial effusion. Great Vessels * The inferior vena cava is mildly dilated. Left Ventricular Diastolic Function * Grade I diastolic dysfunction, (abnormal relaxation pattern). MMode 2D Measurements and Calculations IVSd 0.70 cm IVSs 1.1 cm LVIDd 4.2 cm LVIDs 2.8 cm LVPWd 0.77 cm LVPWs 1.1 cm IVS/LVPW 0.91 FS 33.7 % EDV(Teich) 79.7 ml ESV(Teich) 29.5 ml EF(Teich) 62.9 % EDV(cubed) 75.4 ml ESV(cubed) 21.9 ml EF(cubed) 70.9 % % IVS thick 55.3 % % LVPW thick 41.6 % LV mass(C)d 91.8 grams LV mass(C)dI 59.2 grams/m\S\2 LV mass(C)s 85.2 grams LV mass(C)sI 54.9 grams/m\S\2 SV(Teich) 50.1 ml SI(Teich) 32.3 ml/m\S\2 SV(cubed) 53.5 ml SI(cubed) 34.5 ml/m\S\2 EPSS 0.75 cm Ao root diam 3.0 cm Ao root area 6.9 cm\S\2 ACS 1.6 cm LA dimension 3.4 cm asc Aorta Diam 3.3 cm LA/Ao 1.2 LVOT diam 2.0 cm LVOT area 3.2 cm\S\2 LVAd ap4 20.9 cm\S\2 LVLd ap4 7.1 cm EDV(MOD-sp4) 49.5 ml EDV(sp4-el) 52.4 ml LVAs ap4 11.7 cm\S\2 LVLs ap4 5.6 cm ESV(MOD-sp4) 19.8 ml ESV(sp4-el) 20.6 ml EF(MOD-sp4) 59.9 % EF(sp4-el) 60.7 % LVAd ap2 22.0 cm\S\2 LVLd ap2 7.1 cm EDV(MOD-sp2) 54.4 ml EDV(sp2-el) 57.7 ml LVAs ap2 11.9 cm\S\2 LVLs ap2 5.8 cm ESV(MOD-sp2) 20.4 ml ESV(sp2-el) 20.8 ml EF(MOD-sp2) 62.5 % EF(sp2-el) 64.0 % LVLd %diff 0.37 % EDV(MOD-bp) 52.0 ml LVLs %diff 2.2 % ESV(MOD-bp) 19.9 ml EF(MOD-bp) 61.7 % SV(MOD-sp4) 29.7 ml SI(MOD-sp4) 19.1 ml/m\S\2 SV(MOD-sp2) 34.0 ml SI(MOD-sp2) 21.9 ml/m\S\2 SV(MOD-bp) 32.1 ml SI(MOD-bp) 20.7 ml/m\S\2 SV(sp4-el) 31.8 ml SI(sp4-el) 20.5 ml/m\S\2 SV(sp2-el) 36.9 ml SI(sp2-el) 23.8 ml/m\S\2 Doppler Measurements and Calculations MV E max jaylyn 59.6 cm/sec MV A max jaylyn 77.4 cm/sec MV E/A 0.77 MV dec time 0.15 sec Ao V2 max 148.8 cm/sec Ao max PG 8.9 mmHg Ao max PG (full) 5.7 mmHg NORY(V,A) 1.9 cm\S\2 NORY(V,D) 1.9 cm\S\2 AI max jaylyn 327.4 cm/sec AI max PG 42.9 mmHg AI dec slope 106.0 cm/sec\S\2 AI P1/2t 905.1 msec LV V1 max PG 3.1 mmHg LV V1 max 88.4 cm/sec PA V2 max 69.9 cm/sec PA max PG 2.0 mmHg PA acc slope 364.0 cm/sec\S\2 PA acc time 0.15 sec PI end-d jaylyn 81.1 cm/sec TR max jaylyn 236.3 cm/sec PA pr(Accel) 12.3 mmHg
--- NOTE | 2017-10-04 13:58 | Progress Note ---
Internal Med Progress Note Date of Service: Oct 04, 2017. Provider Documentation: SUBJECTIVE: Seen and examined at bedside Reports feeling very tired today Has chronic cough with expectoration Reports having chest pain this morning which resolved Denies nausea, dizziness, SOB, abd pain OBJECTIVE: Vital Signs-as noted below Physical Exam: General Appearance:Thin, no apparent distress Head: normocephalic, Atraumatic Eyes: normal inspection, EOMI, PERRL Neck: supple, Trachea midline Respiratory/Chest: Normal breath sounds, CTA Cardiovascular: S1, S2, No murmur Abdomen/GI:Soft, Non tender, Bowel sounds present Extremities/Musculoskelatal:normal inspection, no edema Neurologic/Psych:AAOX3, grossly no focal neurological deficits Skin: normal color, warm Lab data as noted below. ASSESSMENT & PLAN: Near syncope Palpitations, Chest pain H/O P.afib Patient currently not on any meds for P.afib Currently in sinus TSH:Normal ECHO:Left ventricular systolic function is normal, EF:55-60% Grade I diastolic dysfunction, Moderate TR, Mild MR Troponin negative Check Orthostatics Monitor in Tele Consult cardiology CTA: No PE CT head, CTA head and Neck : Normal Denies anxiety issues HTN Not on meds hesitant to be started on meds prescribed by PCP States her BP is usually well controlled H/O CVA: Not on Meds Has chronic dysphagia secondary to CVA States following with Speech therapy as outpatient States she would not require to consult Speech therapy while hospitalized Chronic anemia hemoglobin at baseline. H/O Autoimmune hepatitis on chronic Imuran. Past tobacco abuse. Quit in 70s DVT px: Lovenox SQ Code Status: DNR PROCEDURES: ECHO: * The left ventricle is normal in size. * There is normal left ventricular wall thickness. * Left ventricular systolic function is normal. * The left ventricular wall motion is normal. * Ejection Fraction = 55-60%. * Grade I diastolic dysfunction, (abnormal relaxation pattern). * Aortic valve sclerosis mild, without significant aortic valvular stenosis. * Trace aortic regurgitation. * There is mild mitral regurgitation. * There is moderate tricuspid regurgitation. * The inferior vena cava is mildly dilated. Vital Signs: Date Time Temp Pulse Resp B/P (MAP) Pulse Ox O2 Delivery O2 Flow Rate FiO2 10/04/17 12:41 36.4 55 20 112/67 (82) 97 Room Air 10/04/17 12:20 Nasal Cannula 2.0 10/04/17 08:00 Nasal Cannula 2.0 10/04/17 07:46 36.5 64 18 94/54 (67) 98 Nasal Cannula 2.0 10/04/17 04:00 Nasal Cannula 2.0 10/04/17 03:56 36.7 67 18 101/62 (75) 97 Nasal Cannula 2.0 10/04/17 00:00 97 Nasal Cannula 2.0 10/03/17 23:37 36.7 70 18 112/64 (80) 99 2.0 10/03/17 20:32 75 18 137/65 97 10/03/17 20:20 36.5 67 16 133/78 97 Room Air 10/03/17 19:03 70 18 117/64 94 Room Air 10/03/17 17:56 62 19 110/69 95 Room Air 10/03/17 16:53 66 123/66 98 10/03/17 15:44 Room Air 10/03/17 15:40 95 Room Air 10/03/17 15:13 70 10/03/17 15:02 36.6 80 20 116/72 93 Room Air Lab Results: Results Past 24 Hours Test 10/03/17 15:34 10/03/17 15:37 10/03/17 15:38 10/03/17 16:55 Range/Units White Blood Count 5.22 4.8-10.8 K/uL Red Blood Count 3.96 4.2-5.4 M/uL Hemoglobin 11.7 12.0-16.0 g/dL Hematocrit 35.6 37-47 % Mean Corpuscular Volume 89.9 80-100 fL Mean Corpuscular Hemoglobin 29.5 25-34 pg Mean Corpuscular Hemoglobin Concent 32.9 32-36 g/dl Platelet Count 244 130-400 K/uL Mean Platelet Volume 9.9 7.4-10.4 fL Neutrophils (%) (Auto) 60.7 % Lymphocytes (%) (Auto) 25.1 % Monocytes (%) (Auto) 11.5 % Eosinophils (%) (Auto) 2.1 % Basophils (%) (Auto) 0.6 % Neutrophils # (Auto) 3.17 1.4-6.5 K/uL Lymphocytes # (Auto) 1.31 1.2-3.4 K/uL Monocytes # (Auto) 0.60 0.11-0.59 K/uL Eosinophils # (Auto) 0.11 0-0.5 K/uL Basophils # (Auto) 0.03 0-0.2 K/uL RDW Standard Deviation 52.2 36.4-46.3 fL RDW Coefficient of Variation 15.8 11.5-14.5 % Immature Granulocyte % (Auto) 0.0 % Immature Granulocyte # (Auto) 0.00 0.00-0.02 K/uL Prothrombin Time 10.7 9.0-12.0 SECONDS Prothromb Time International Ratio 1.0 0.9-1.1 Activated Partial Thromboplast Time 24.5 21.0-31.0 SECONDS Partial Thromboplastin Ratio 0.9 D-Dimer 3310 0-500 ug/L FEU Sodium Level 138 136-145 mmol/L Potassium Level 3.6 3.5-5.1 mmol/L Chloride Level 104 98-107 mmol/L Carbon Dioxide Level 26 21-32 mmol/L Anion Gap 7.0 19.0 16-25 mmol/L Blood Urea Nitrogen 19 7-18 mg/dl Creatinine 0.77 0.60-1.20 mg/dl Est Creatinine Clear Calc Drug Dose 44.5 ml/min Estimated GFR () 83.3 Estimated GFR (Non- 71.9 BUN/Creatinine Ratio 24.0 10-20 Random Glucose 88 70-99 mg/dl Calcium Level 9.1 8.5-10.1 mg/dl Magnesium Level 2.4 1.8-2.4 mg/dl Total Bilirubin 0.3 0.2-1 mg/dl Aspartate Amino Transf (AST/SGOT) 17 15-37 U/L Alanine Aminotransferase (ALT/SGPT) 16 12-78 U/L Alkaline Phosphatase 110 45-117 U/L Total Protein 7.8 6.4-8.2 gm/dl Albumin 3.4 3.4-5.0 gm/dl Globulin 4.4 2.5-4.0 gm/dl Albumin/Globulin Ratio 0.8 0.9-2 Thyroid Stimulating Hormone (TSH) 1.990 0.300-4.500 uIu/ml Bedside Hemoglobin 12.2 12.0-16.0 g/dl Bedside Hematocrit 36 37-47 % Bedside Sodium 140 135-144 mEq/L Bedside Potassium 3.7 3.3-5.0 mEq/L Bedside Chloride 102 101-112 mEq/L Bedside Total CO2 24 24-31 mEq/l Bedside Blood Urea Nitrogen 19 7-18 mg/dl Bedside Creatinine 0.7 0.6-1.3 mg/dl Bedside Glucose (other) 93 70-99 mg/dl Bedside Ionized Calcium (Yannick) 1.19 1.12-1.32 mmol/l Bedside Troponin I < 0.030 0-0.045 ng/ml Urine Color YELLOW Urine Appearance CLEAR CLEAR Urine pH 6.0 4.5-7.5 Urine Specific Center Line 1.008 1.000-1.030 Urine Protein NEG NEG Urine Glucose (UA) NEG NEG Urine Ketones NEG NEG Urine Occult Blood 2+ NEG Urine Nitrite NEG NEG Urine Bilirubin NEG NEG Urine Urobilinogen NEG NEG Urine Leukocyte Esterase SMALL NEG Urine WBC (Auto) 10-30 0-5 /hpf Urine RBC (Auto) 5-10 0-4 /hpf Urine Hyaline Casts (Auto) 0 0-5 /lpf Urine Epithelial Cells (Auto) 0-5 0-5 /lpf Urine Bacteria (Auto) 1+ NEG Test 10/04/17 06:44 Range/Units White Blood Count 6.37 4.8-10.8 K/uL Red Blood Count 3.56 4.2-5.4 M/uL Hemoglobin 10.5 12.0-16.0 g/dL Hematocrit 32.4 37-47 % Mean Corpuscular Volume 91.0 80-100 fL Mean Corpuscular Hemoglobin 29.5 25-34 pg Mean Corpuscular Hemoglobin Concent 32.4 32-36 g/dl Platelet Count 225 130-400 K/uL Mean Platelet Volume 10.1 7.4-10.4 fL Neutrophils (%) (Auto) 82.4 % Lymphocytes (%) (Auto) 11.1 % Monocytes (%) (Auto) 6.3 % Eosinophils (%) (Auto) 0.0 % Basophils (%) (Auto) 0.0 % Neutrophils # (Auto) 5.25 1.4-6.5 K/uL Lymphocytes # (Auto) 0.71 1.2-3.4 K/uL Monocytes # (Auto) 0.40 0.11-0.59 K/uL Eosinophils # (Auto) 0.00 0-0.5 K/uL Basophils # (Auto) 0.00 0-0.2 K/uL RDW Standard Deviation 53.2 36.4-46.3 fL RDW Coefficient of Variation 16.0 11.5-14.5 % Immature Granulocyte % (Auto) 0.2 % Immature Granulocyte # (Auto) 0.01 0.00-0.02 K/uL Sodium Level 139 136-145 mmol/L Potassium Level 4.3 3.5-5.1 mmol/L Chloride Level 110 98-107 mmol/L Carbon Dioxide Level 21 21-32 mmol/L Anion Gap 8.0 3-11 mmol/L Blood Urea Nitrogen 22 7-18 mg/dl Creatinine 0.79 0.60-1.20 mg/dl Est Creatinine Clear Calc Drug Dose 44.8 ml/min Estimated GFR () 80.8 Estimated GFR (Non- 69.7 BUN/Creatinine Ratio 27.7 10-20 Random Glucose 132 70-99 mg/dl Calcium Level 8.9 8.5-10.1 mg/dl Microbiology Results 10/03/17 Urine Culture - Preliminary, Resulted NO GROWTH - LESS THAN 1,000 COLONIES/...
[2017-10-04] MEDS: ENOXAPARIN 30 MG/0.3 ML SYR SC SCH (21:26)
[2017-10-04] MEDS: AZATHIOPRINE 50 MG TAB PO SCH (21:26)
[2017-10-04] MEDS: MIRTAZAPINE TAB 15 MG TAB PO SCH (21:26)
[2017-10-05] VITALS (8 sets, daily range): BP systolic 101–154; BP diastolic 55–87; PULSE 50–80; TEMP 36.4–36.9; O2SAT 96–99
[2017-10-05 06:44] LABS: HEMATOCRIT 31.6 % (37-47); HEMOGLOBIN 10.2 g/dL (12.0-16.0); MEAN CELL VOLUME 91.6 fL (80-100); MEAN CORPUSCULAR HEMOGLOBIN 29.6 pg (25-34); MEAN CORPUSCULAR HGB CONC 32.3 g/dl (32-36); PLATELET COUNT 227 K/uL (130-400); RED CELL DISTRIBUTION WIDTH CV 16.3 % (11.5-14.5); RED CELL DISTRIBUTION WIDTH SD 54.5 fL (36.4-46.3); WHITE BLOOD COUNT 5.31 K/uL (4.8-10.8)
[2017-10-05 07:20] LABS: CALCIUM 8.6 mg/dl (8.5-10.1); CREATININE 0.8 mg/dl (0.60-1.20); POTASSIUM 3.8 mmol/L (3.5-5.1)
[2017-10-05] MEDS: LACTOBACILLUS ACIDOPHILUS (FLORANEX) TAB PO SCH (08:35)
[2017-10-05] MEDS: PANTOprazole SOD 40 MG TAB PO SCH ×2 (08:35→20:48)
--- NOTE | 2017-10-05 11:08 | CARDIOLOGY CONSULTATION ---
DATE OF CONSULTATION: 10/05/2017 CONSULTATION REQUESTED BY: Dr. Villalpando. REASON FOR CONSULTATION: Palpitations. HISTORY OF PRESENT ILLNESS: Mrs. Shankar is a very pleasant 82-year-old woman who presented to [facility] on 10/03/2017 with a complaint of palpitations. The patient carries a very remote history of atrial fibrillation, being diagnosed in 2002. At that time, she spontaneously converted, was not placed on anticoagulation per records available, and the patient has not seen cardiology since then. The patient states that she normally has a few episodes of what she describes as atrial fibrillation in a year. She states that she will just feel her heart start pounding and beating very fast and she usually gets a little lightheaded or dizzy with it. On the morning of 10/03/2017, the patient states that she woke up at her normal state of health but then walked to the door to let her little dog out and she became significantly short of breath. At that time, she also notes that her heart was racing, she sat down and took her pulse and states it was going very fast. When she noticed her pulse to be fast, she also became lightheaded and dizzy at the same time and felt the need to sit down. She states that she sat down and tried to wait it out for 5 hours, and by around noon, she was feeling better; however, an hour or 2 later, her primary care physician's office called to discuss recent medication changes and she alerted them of her symptoms and she was directed to go to the Emergency Department. Upon presentation to the Emergency Department, she states that her palpitations resolved and she was found to be in sinus rhythm. She was admitted to telemetry. She has not had any further palpitations since admission and she has been in sinus since admission as well. Currently, she states that she feels well, just tired. PAST SURGICAL HISTORY: 1. Vaginal repair. 2. Bladder repair. 3. Hip surgery. 4. Elbow surgery. 5. Eyelid surgery. 6. Sacral nerve stimulator. 7. Cataract surgery. 8. Hernia repair. 9. Cholecystectomy. 10. Total abdominal hysterectomy. 11. Cervical spinal fusion. MEDICAL ILLNESSES: 1. Schatzki's ring. 2. Remote history of paroxysmal atrial fibrillation. 3. Nocturnal hypoxemia. 4. Dyslipidemia. 5. Depression. FAMILY HISTORY: Noncontributory. SOCIAL HISTORY: Very remote tobacco use history, the patient quit in 1972. Denies any alcohol or recreational drug use. REVIEW OF SYSTEMS: As per HPI, all other review of systems reviewed and negative at this time. ALLERGIES: 1. CODEINE. 2. DIPYRIDAMOLE. 3. DULOXETINE. 4. FENOPROFEN. 5. IV DYE. 6. MORPHINE. 7. SHELLFISH. 8. TETRACYCLINE. MEDICATIONS AN OUTPATIENT: 1. Metoprolol succinate 25 mg daily, which the patient was noncompliant with. 2. Clonazepam p.r.n. 3. Remeron at bedtime. 4. Protonix daily. PHYSICAL EXAMINATION: VITALS: Temperature 36.8, pulse 58, respiratory rate 12, blood pressure 101/55. GENERAL: Awake, alert, oriented x3, mildly anxious, no acute distress. HEENT: Normocephalic, atraumatic. Pupils equal, round, and reactive to light and accommodation. Extraocular muscles intact. Anicteric sclerae. Moist mucous membranes. NECK: No JVD, no bruit. CARDIOVASCULAR: Regular. Positive S4. Normal S1 and S2. No S3. No murmurs or rubs. PULMONARY: Clear to auscultation bilaterally. No rales, rhonchi or wheezing. ABDOMEN: Bowel sounds x4, soft. No rebound, guarding, tenderness. No organomegaly. EXTREMITIES: No clubbing, cyanosis or edema. +2 pedal pulses bilaterally. SKIN: Warm and dry. TEST RESULTS: Telemetry monitoring since admission shows normal sinus rhythm. A 2D echocardiogram showed normal LV chamber size and wall thickness, normal LV systolic function, EF 55-60% without wall motion abnormality, grade 1 diastolic dysfunction, mild aortic valve sclerosis without stenosis, trace aortic regurgitation, mild mitral regurgitation, moderate tricuspid regurgitation. IMPRESSION: 1. Palpitations. 2. Remote history of paroxysmal atrial fibrillation. 3. Reluctance to take medications. RECOMMENDATIONS: It is my pleasure to see Mrs. Shankar in consultation today. The patient was counseled that while her symptoms do seem to be appropriate for paroxysmal atrial fibrillation, that there is no way for me to accurately diagnose her symptoms without catching them on monitor. She has been in sinus rhythm since admission but I would recommend another 24 hours of telemetry monitoring at this time and then likely discharge to home with a 2-week ZIO patch monitor. She was counseled on the pros and cons of medication therapy, either restarting her metoprolol or starting her on amiodarone to prevent further episodes; however, she states that she is very reluctant to try any medications and will prefer to remain off all medications at this time, so we will hold off any med changes at this point, and should the patient remain in sinus rhythm overnight, we will likely discharge to home in the a.m. MTDD
--- NOTE | 2017-10-05 11:58 | Progress Note ---
Internal Med Progress Note Date of Service: Oct 05, 2017. Provider Documentation: SUBJECTIVE: Seen and examined at bedside Still feels tired No significant change from yesterday Has chronic cough with expectoration Denies chest pain, SOB, nausea, dizziness, abd pain Daughter at bedside OBJECTIVE: Vital Signs-as noted below Physical Exam: General Appearance:Thin, no apparent distress Head: normocephalic, Atraumatic Eyes: normal inspection, EOMI, PERRL Neck: supple, Trachea midline Respiratory/Chest: Normal breath sounds, CTA Cardiovascular: S1, S2, No murmur Abdomen/GI:Soft, Non tender, Bowel sounds present Extremities/Musculoskelatal:normal inspection, no edema Neurologic/Psych:AAOX3, grossly no focal neurological deficits Skin: normal color, warm Lab data as noted below. ASSESSMENT & PLAN: Near syncope Palpitations, Chest pain H/O P.afib Patient currently not on any meds for P.afib Currently in sinus TSH:Normal ECHO:Left ventricular systolic function is normal, EF:55-60% Grade I diastolic dysfunction, Moderate TR, Mild MR Troponin negative Normal Orthostatics Monitor in Tele for 24 more hours Appreciate cardiology Input CTA: No PE CT head, CTA head and Neck : Normal Denies anxiety issues May Need Zio Patch upon discharge HTN Not on meds hesitant to be started on meds prescribed by PCP States her BP is usually well controlled H/O CVA: Not on Meds Has chronic dysphagia secondary to CVA States following with Speech therapy as outpatient States she would not require Speech therapy evaluation Chronic anemia hemoglobin at baseline. H/O Autoimmune hepatitis on chronic Imuran. Past tobacco abuse. Quit in 70s DVT px: Lovenox SQ Code Status: DNR Disposition: Plan to discharge in next 24-48 hours if stable PROCEDURES: ECHO: * The left ventricle is normal in size. * There is normal left ventricular wall thickness. * Left ventricular systolic function is normal. * The left ventricular wall motion is normal. * Ejection Fraction = 55-60%. * Grade I diastolic dysfunction, (abnormal relaxation pattern). * Aortic valve sclerosis mild, without significant aortic valvular stenosis. * Trace aortic regurgitation. * There is mild mitral regurgitation. * There is moderate tricuspid regurgitation. * The inferior vena cava is mildly dilated. Vital Signs: Date Time Temp Pulse Resp B/P (MAP) Pulse Ox O2 Delivery O2 Flow Rate FiO2 10/05/17 10:53 36.7 62 116/69 (85) 10/05/17 10:21 58 96 10/05/17 07:49 Nasal Cannula 2.0 10/05/17 07:37 36.8 58 18 101/55 (70) 96 Room Air 10/05/17 04:17 36.8 50 18 117/66 (83) 97 2.0 10/05/17 04:00 Nasal Cannula 2.0 10/05/17 00:00 Nasal Cannula 2.0 10/04/17 22:40 66 111/53 (72) 69 113/ (37) 59 135/81 (99) 10/04/17 20:00 100 Nasal Cannula 2.0 10/04/17 19:11 36.4 67 18 101/61 (74) 95 Room Air BiPAP 10/04/17 16:00 100 Nasal Cannula 2.0 10/04/17 15:05 36.3 65 20 102/57 (72) 100 Nasal Cannula 2.0 65 115/68 (84) 69 114/72 (86) 10/04/17 12:41 36.4 55 20 112/67 (82) 97 Room Air 10/04/17 12:20 Nasal Cannula 2.0 Lab Results: Results Past 24 Hours Test 10/05/17 05:58 Range/Units White Blood Count 5.31 4.8-10.8 K/uL Red Blood Count 3.45 4.2-5.4 M/uL Hemoglobin 10.2 12.0-16.0 g/dL Hematocrit 31.6 37-47 % Mean Corpuscular Volume 91.6 80-100 fL Mean Corpuscular Hemoglobin 29.6 25-34 pg Mean Corpuscular Hemoglobin Concent 32.3 32-36 g/dl RDW Standard Deviation 54.5 36.4-46.3 fL RDW Coefficient of Variation 16.3 11.5-14.5 % Platelet Count 227 130-400 K/uL Mean Platelet Volume 10.0 7.4-10.4 fL Sodium Level 141 136-145 mmol/L Potassium Level 3.8 3.5-5.1 mmol/L Chloride Level 108 98-107 mmol/L Carbon Dioxide Level 26 21-32 mmol/L Anion Gap 7.0 3-11 mmol/L Blood Urea Nitrogen 17 7-18 mg/dl Creatinine 0.80 0.60-1.20 mg/dl Est Creatinine Clear Calc Drug Dose 43.9 ml/min Estimated GFR () 79.6 Estimated GFR (Non- 68.7 BUN/Creatinine Ratio 20.7 10-20 Random Glucose 79 70-99 mg/dl Calcium Level 8.6 8.5-10.1 mg/dl Magnesium Level 2.1 1.8-2.4 mg/dl
[2017-10-05] MEDS: MIRTAZAPINE TAB 15 MG TAB PO SCH (20:48)
[2017-10-05] MEDS: CLONAZEPAM 0.5 MG TAB PO SCH (20:48)
[2017-10-05] MEDS: AZATHIOPRINE 50 MG TAB PO SCH (20:49)
[2017-10-05] MEDS: ENOXAPARIN 30 MG/0.3 ML SYR SC SCH (20:50)
[2017-10-06 03:55] VITALS: BP 144/72; PULSE 74; TEMP 36.7; O2SAT 96
[2017-10-06 07:01] LABS: HEMATOCRIT 32.1 % (37-47); HEMOGLOBIN 10.4 g/dL (12.0-16.0)
[2017-10-06 07:15] VITALS: BP 136/79; PULSE 64; TEMP 36.6; O2SAT 98
[2017-10-06 07:29] LABS: CALCIUM 8.6 mg/dl (8.5-10.1); CREATININE 0.7 mg/dl (0.60-1.20); POTASSIUM 3.6 mmol/L (3.5-5.1)
[2017-10-06] MEDS: PANTOprazole SOD 40 MG TAB PO SCH (08:14)
[2017-10-06] MEDS: LACTOBACILLUS ACIDOPHILUS (FLORANEX) TAB PO SCH (08:14)
--- NOTE | 2017-10-06 09:25 | Cardiology Follow-Up ---
Subjective Subjective Date of Service: Oct 06, 2017. Pt evaluation today including: conversation w/ patient, physical exam, chart review, lab review, review of studies, review of inpatient medication list Additional Details: Pt seen and examined, states that she feels fine. No further palpitations. Denies cp, sob, lightheadedness or dizziness. Tele reviewed: sinus rhythm with rare PVC's, no sustained arrhythmias. Problem List Medical Problems: (1) Abdominal pain Status: Acute (2) Acute diverticulitis Status: Acute (3) Dehydration Status: Acute (4) Diverticulitis Status: Acute (5) Enteritis Status: Acute (6) Headache Status: Acute (7) Heart palpitations Status: Acute (8) Nausea Status: Acute (9) Near syncope Status: Acute (10) Neck pain Status: Acute (11) Post-op pain Status: Acute (12) Shortness of breath Status: Acute (13) Weakness Status: Acute Review of Systems Respiratory: No see HPI, No cough, No sputum, No wheezing, No shortness of breath, No dyspnea on exertion, No dyspnea at rest, No hemoptysis, No problem reported Cardiac: No see HPI, No chest pain, No orthopnea, No PND, No edema, No claudication, No palpitations, No problem reported Objective Vital Signs Last Vital Signs Documentation Date Time Temp Pulse Resp B/P (MAP) Pulse Ox O2 Delivery O2 Flow Rate FiO2 10/06/17 08:00 Nasal Cannula 2.0 10/06/17 07:15 36.6 64 16 136/79 (98) 98 Physical Exam: General Appearance: WD/WN, no apparent distress, + thin Eyes: bilateral eyes normal inspection, bilateral eyes PERRL, bilateral eyes EOMI ENT: normal ENT inspection, hearing grossly normal, pharynx normal Neck: supple, no adenopathy, thyroid normal, no JVD Respiratory/Chest: lungs clear, normal breath sounds, no respiratory distress Cardiovascular: regular rate, rhythm, no edema, no JVD, no murmur, + gallop/S4 Abdomen: normal bowel sounds, non tender, soft, no organomegaly Extremities: non-tender, normal inspection, no pedal edema, no calf tenderness Neurologic/Psychiatric: 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 palpitations remote history of paroxysmal atrial fibrillation no evidence of arrhythmia since admission and no recurrence of symptoms pt reluctant to start meds will d/c to home and patient is to stop at [facility] for Zio patch placement ok to shower and swim with Zio on will wear for 2 weeks then f/u with me in 4 weeks (my office will arrange) ok to d/c to home from cardiac standpoint
--- NOTE | 2017-10-06 11:18 | Progress Note ---
Internal Med Progress Note Date of Service: Oct 06, 2017. Provider Documentation: SUBJECTIVE: Seen and examined at bedside Feels well today Eager to get discharged No rhythm issues on monitor Denies chest pain, SOB, nausea, dizziness, abd pain Daughter at bedside OBJECTIVE: Vital Signs-as noted below Physical Exam: General Appearance:Thin, no apparent distress Head: normocephalic, Atraumatic Eyes: normal inspection, EOMI, PERRL Neck: supple, Trachea midline Respiratory/Chest: Normal breath sounds, CTA Cardiovascular: S1, S2, No murmur Abdomen/GI:Soft, Non tender, Bowel sounds present Extremities/Musculoskelatal:normal inspection, no edema Neurologic/Psych:AAOX3, grossly no focal neurological deficits Skin: normal color, warm Lab data as noted below. ASSESSMENT & PLAN: Near syncope Palpitations, Chest pain H/O P.afib Patient currently not on any meds for P.afib Currently in sinus TSH:Normal ECHO:Left ventricular systolic function is normal, EF:55-60% Grade I diastolic dysfunction, Moderate TR, Mild MR Troponin negative Normal Orthostatics Appreciate cardiology Input CTA: No PE CT head, CTA head and Neck : Normal Denies anxiety issues No evidence of arrhythmia on Monitor Patient reluctant to be started on any medications Plan to discharge on Zio patch placement Needs follow up with Cardiology in 3-4 weeks as outpatient HTN Not on meds hesitant to be started on meds prescribed by PCP States her BP is usually well controlled H/O CVA: Not on Meds Has chronic dysphagia secondary to CVA States following with Speech therapy as outpatient States she would not require Speech therapy evaluation Chronic anemia hemoglobin at baseline. H/O Autoimmune hepatitis on chronic Imuran. Past tobacco abuse. Quit in 70s DVT px: Lovenox SQ Code Status: DNR Disposition: Plan to discharge home today Follow up with for Routine Care on Oct 12, 2017 at 11:05AM Follow up with your Fitness Coach in 3-4 weeks Get Zio patch placed at your Fitness Coach's office today as advised Seek immediate medical attention if your symptoms reoccur or worsen PROCEDURES: ECHO: * The left ventricle is normal in size. * There is normal left ventricular wall thickness. * Left ventricular systolic function is normal. * The left ventricular wall motion is normal. * Ejection Fraction = 55-60%. * Grade I diastolic dysfunction, (abnormal relaxation pattern). * Aortic valve sclerosis mild, without significant aortic valvular stenosis. * Trace aortic regurgitation. * There is mild mitral regurgitation. * There is moderate tricuspid regurgitation. * The inferior vena cava is mildly dilated. Vital Signs: Date Time Temp Pulse Resp B/P (MAP) Pulse Ox O2 Delivery O2 Flow Rate FiO2 10/06/17 08:00 Nasal Cannula 2.0 10/06/17 07:15 36.6 64 16 136/79 (98) 98 Nasal Cannula 2.0 10/06/17 04:00 Nasal Cannula 2.0 10/06/17 03:55 36.7 74 18 144/72 (96) 96 Nasal Cannula 2.0 10/06/17 00:00 Nasal Cannula 2.0 10/05/17 23:54 36.4 64 16 129/74 (92) 99 Nasal Cannula 2.0 141/84 (103) 154/87 (109) 10/05/17 20:00 97 Nasal Cannula 2.0 10/05/17 19:15 36.9 73 16 118/73 (88) 96 Room Air 10/05/17 16:02 36.8 62 15 118/73 (88) 97 Nasal Cannula 2.0 62 124/71 (88) 80 138/74 (95) 10/05/17 16:00 Room Air 10/05/17 12:00 Room Air Lab Results: Results Past 24 Hours Test 10/06/17 06:20 Range/Units Hemoglobin 10.4 12.0-16.0 g/dL Hematocrit 32.1 37-47 % Sodium Level 140 136-145 mmol/L Potassium Level 3.6 3.5-5.1 mmol/L Chloride Level 106 98-107 mmol/L Carbon Dioxide Level 29 21-32 mmol/L Anion Gap 5.0 3-11 mmol/L Blood Urea Nitrogen 20 7-18 mg/dl Creatinine 0.70 0.60-1.20 mg/dl Est Creatinine Clear Calc Drug Dose 50.2 ml/min Estimated GFR () 93.5 Estimated GFR (Non- 80.7 BUN/Creatinine Ratio 28.0 10-20 Random Glucose 98 70-99 mg/dl Calcium Level 8.6 8.5-10.1 mg/dl Magnesium Level 2.1 1.8-2.4 mg/dl
--- NOTE | 2017-10-06 11:21 | Discharge Summary ---
Discharge Summary Date of Service Oct 06, 2017. Discharge Summary Admission Date: Oct 03, 2017 at 19:53 Discharge Date: Oct 06, 2017 Discharge Disposition: Home with services Principal Diagnosis: Palpitations, Presyncope Procedures: CTA: 1. No pulmonary emboli identified. 2. No acute intrathoracic findings. CT head: No acute intracranial findings. CTA Head: Unremarkable CTA of the intracranial circulation for age. CTA Neck: Unremarkable CTA of the neck. No stenosis or dissection. CXR: 1. No acute cardiopulmonary findings. 2. Lower lung interstitial thickening which favors atelectasis. Consultations: Cardiology Pending Studies/Follow-Up: Follow up with for Routine Care on Oct 12, 2017 at 11:05AM Follow up with your Communications Designer in 3-4 weeks Get Zio patch placed at your Communications Designer's office today as advised Seek immediate medical attention if your symptoms reoccur or worsen Medication Reconciliation Continued Medications: Acetaminophen (Acetaminophen ER) 650 Mg Tab 1 TAB PO Q8 PRN for Pain Azathioprine (Imuran) 50 Mg Tab 1 TAB PO HS for 30 Days, TAB 3 Refills Clonazepam (Klonopin) 0.5 Mg Tab 0.5 MG PO HS, #2 TAB Magnesium Oxide (Magnesium Oxide) 400 Mg Cap 1 CAP PO DAILY for 30 Days, #30 CAP 3 Refills Mirtazapine (Remeron) 15 Mg Tab 1 TAB PO HS for 30 Days, #30 TAB 3 Refills Pantoprazole (Protonix) 40 Mg Tab 40 MG PO QAM, TAB Potassium (Potassium) 75 Mg Tab 250 MG PO DAILY Probiotic Product (Trubiotics) 1 Cap Cap 1 CAP PO QAM Admission Information HPI (per Admitting provider): CHIEF COMPLAINT: Near syncope, palpitations. HISTORY OF PRESENT ILLNESS: History obtained from patient, daughter, and records. Medical history significant for paroxysmal AFib, hypertension not on meds, , history of CVA as per records. past tobacco abuse, hyperlipidemia, autoimmune hepatitis on Imuran, hx Schatzki's ring/aspiration risk mood disorder, chronic anemia (baseline hemoglobin of 9) Recent confinement last month for left hip pain secondary to adductor strain and avulsion with hematoma. Patient also had E. coli UTI. Hip aspiration done. Patient found to have paroxysmal AFib since 2002. Patient did not need medications and anticoagulation on discharge as per patient account. Transient A. fib episodes 3-4 times a year, spontaneously resolving after a few minutes. Seen by PCP last week in the office, the patient complaining of episodes where she would have near loss consciousness, choking on foods. Blood pressure noted to be elevated which patient attributes to emotional upset. PCP wanted to start Lopressor outpatient. Patient hesitant to initiate medication because she felt that she was not able to have an in-depth discussion with PCP regarding medication at the office. Today, she felt lightheaded. She noted irregular pounding, palpitations "like AFib." Symptoms more prolonged than usual, some shortness of breath. Patient sent to the Emergency Room for evaluation by PCP. Patient currently comfortable. Physical Exam (per Admitting): PHYSICAL EXAMINATION: VITAL SIGNS: Blood pressure was noted to be 123/63, pulse rate 66, RR 19, temperature 36.7, sats 98 on room air. GENERAL: Noted to be slightly anxious, hyposthenic, no respiratory distress. SKIN: Pallor, warm. HEENT: Pale palpebral conjuctivae. No ptosis. Dry mucosa. NECK: Supple, nontender. CHEST: Clear to auscultation. No tenderness. HEART: Regular rate and rhythm. Systolic murmur. Palpable LE pulses. ABDOMEN: Soft, nontender. EXTREMITIES: No edema. No gross deformities. NEUROLOGIC: Coherent. No gross focality. Hospital Course Near syncope Palpitations, Chest pain H/O P.afib Patient currently not on any meds for P.afib Currently in sinus TSH:Normal ECHO:Left ventricular systolic function is normal, EF:55-60% Grade I diastolic dysfunction, Moderate TR, Mild MR Troponin negative Normal Orthostatics Appreciate cardiology Input CTA: No PE CT head, CTA head and Neck : Normal Denies anxiety issues No evidence of arrhythmia on Monitor Patient reluctant to be started on any medications Plan to discharge on Zio patch placement Needs follow up with Cardiology in 3-4 weeks as outpatient HTN Not on meds hesitant to be started on meds prescribed by PCP States her BP is usually well controlled H/O CVA: Not on Meds Has chronic dysphagia secondary to CVA States following with Speech therapy as outpatient States she would not require Speech therapy evaluation Chronic anemia hemoglobin at baseline. H/O Autoimmune hepatitis on chronic Imuran. Past tobacco abuse. Quit in 70s DVT px: Lovenox SQ Code Status: DNR Disposition: Plan to discharge home today Follow up with for Routine Care on Oct 12, 2017 at 11:05AM Follow up with your Communications Designer in 3-4 weeks Get Zio patch placed at your Communications Designer's office today as advised Seek immediate medical attention if your symptoms reoccur or worsen PROCEDURES: ECHO: * The left ventricle is normal in size. * There is normal left ventricular wall thickness. * Left ventricular systolic function is normal. * The left ventricular wall motion is normal. * Ejection Fraction = 55-60%. * Grade I diastolic dysfunction, (abnormal relaxation pattern). * Aortic valve sclerosis mild, without significant aortic valvular stenosis. * Trace aortic regurgitation. * There is mild mitral regurgitation. * There is moderate tricuspid regurgitation. * The inferior vena cava is mildly dilated. Total time spent on discharge = This includes examination of the patient, discharge planning, medication reconciliation, and communication with other providers. Discharge Instructions Discharge Instructions Date of Service Oct 06, 2017. Admission Reason for Admission: Palpitations Discharge Discharge Diagnosis / Problem: Palpitations, Presyncope Discharge Goals Goal(s): Decrease discomfort, Improve function Activity Recommendations Activity Limitations: per Instructions/Follow-up section Lifting Limitations: gradually increase as tolerated Exercise/Sports Limitations: gradually increase as tolerated . Instructions / Follow-Up Instructions / Follow-Up Follow up with for Routine Care on Oct 12, 2017 at 11:05AM Follow up with your Communications Designer in 3-4 weeks Get Zio patch placed at your Communications Designer's office today as advised Seek immediate medical attention if your symptoms reoccur or worsen Current Hospital Diet Patient's current hospital diet: Regular Diet Discharge Diet Recommended Diet: AHA Diet (Heart Healthy) Pending Studies Studies pending at discharge: no Medical Emergencies . Who to Call and When: Medical Emergencies: If at any time you feel your situation is an emergency, please call 911 immediately. . Non-Emergent Contact Non-Emergency issues call your: Primary Care Provider, Communications Designer Call Non-Emergent contact if: you have a fever, your pain is not controlled, your pain is worsening, your pain is unusual for you, your pain is concerning you, you have any medication questions Seek immediate medical attention if your symptoms reoccur or worsen . . "Provider Documentation" section prepared by Petros Villalpando. . VTE Core Measure Inpt VTE Proph given/why not?: Enoxaparin (Lovenox)SQ
[2017-10-06 11:24] VITALS: BP 136/79; PULSE 64; TEMP 36.6; O2SAT 98
== END 2017-10-06 12:00 | disposition home or self-care (01) ==
LOC: C.EDB 14:52 → C.MED 19:53 → ENRESERV 20:10
PROVIDERS: ADMIT Internal Medicine; ATTEND Internal Medicine
DX: R00.2 Palpitations (principal); R55 Syncope and collapse; I48.0 Paroxysmal atrial fibrillation; K75.4 Autoimmune hepatitis; D64.9 Anemia, unspecified; E46 Unspecified protein-calorie malnutrition; I10 Essential (primary) hypertension; E78.5 Hyperlipidemia, unspecified; Z86.73 Personal history of transient ischemic attack (TIA), and cerebral infarction without residual deficits; Z86.718 Personal history of other venous thrombosis and embolism; Z79.899 Other long term (current) drug therapy; Z88.5 Allergy status to narcotic agent; Z88.8 Allergy status to other drugs, medicaments and biological substances; Z88.3 Allergy status to other anti-infective agents; Z87.891 Personal history of nicotine dependence; Z66 Do not resuscitate

== ENCOUNTER → 2017-10-30 | Outpatient (CLI) | payer BC ==
[~2017-10-30] MED LIST changes: -AMX250 PO; -CALC-214 PO; +MAGN400C2 PO; +POTA75TA PO; -TRAM-10 PO; -ZLF/100 PO
--- NOTE | 2017-10-30 11:12 | DIAGNOSTIC IMAGING REPORT ---
DOUBLE CONTRAST BARIUM ESOPHAGRAM CLINICAL HISTORY: Dysphagia. Cough with eating. COMPARISON STUDY: Barium esophagram dated 02/07/2009. TECHNIQUE: A standard air contrast barium esophagram is initiated. Multiple spot images of the esophagus are acquired the upright position. The examination was discontinued due to aspiration. FINDINGS: The patient swallowed barium without difficulty. Aspiration was observed and the examination was discontinued. The mucosal pattern is normal as visualized. There is no evidence of intrinsic or extrinsic mass lesion on the acquired images. The gastroesophageal junction distended normally. Fusion hardware is noted in the cervical spine. Fluoroscopy time: 0.5 minutes. Fluoroscopic images: 9 IMPRESSION: 1. Aspiration was observed and the examination was discontinued. 2. No esophageal abnormality was identified on the acquired images. Electronically signed by: Trenton Bergman M.D. 10/30/2017 11:11 AM Dictated Date/Time: 10/30/2017 11:09 AM
== END | disposition home or self-care (01) ==
LOC: C.RAD 10:42
PROVIDERS: ATTEND Internal Medicine Gastroenterology
DX: R13.10 Dysphagia, unspecified (principal)

== ENCOUNTER 2017-11-24 18:16 | Emergency (ER) | payer BC ==
[~2017-11-24] VITALS: Ht 167.6 cm; Wt 50.0 kg
[2017-11-24 18:20] VITALS: TEMP 36.7; Ht 167.6 cm; Wt 50.0 kg
[2017-11-24 19:28] LABS: BASO % 0.1 %; BASO ABS # 0.01 K/uL (0-0.2); HEMATOCRIT 32.5 % (37-47); HEMOGLOBIN 10.9 g/dL (12.0-16.0); IG# 0.02 K/uL (0.00-0.02); LYMPH % 8.3 %; LYMPH ABS # 0.92 K/uL (1.2-3.4); MEAN CELL VOLUME 89.5 fL (80-100); MEAN CORPUSCULAR HGB CONC 33.5 g/dl (32-36); MEAN PLATELET VOLUME 9.5 fL (7.4-10.4); NEUT % 82.4 %; NEUT ABS # 9.17 K/uL (1.4-6.5); PLATELET COUNT 246 K/uL (130-400); RED CELL DISTRIBUTION WIDTH CV 15.4 % (11.5-14.5); RED CELL DISTRIBUTION WIDTH SD 50.3 fL (36.4-46.3); WHITE BLOOD COUNT 11.12 K/uL (4.8-10.8)
--- NOTE | 2017-11-24 19:38 | EMERGENCY ROOM VISIT NOTE ---
History Report prepared by [place]: Sylvia Tracey Under the Supervision of: Dr. Linda Mobley M.D. First contact with patient: 18:39 Chief Complaint: FALL Stated Complaint: FELL, HIT HEAD TWICE, RIGHT ARM DIFFICULT TO MOVE History of Present Illness The patient is an 82 year old female who presents to the Emergency Room with complaints of an episode of a fall occurring 3 hours ago. The patient states that she was walking through her garage door and there is a step down. She states that she lost her balance and fell to the ground. She states that her head bounced off the ground twice. She thinks she lost consciousness after the fall. She states that a lady driving by saw her lying the driveway and called the ambulance. The patient complains of neck pain, a headache, and elbow pain. The patient denies vomiting, feeling confused, and the use of blood thinners. Source of History: patient Onset: 3 hours ago Position: other (global) Quality: other (fall) Timing: other (episode) Associated Symptoms: + LOC, + headache, + neck pain, No vomiting Note: The patient complains of elbow pain. The patient denies feeling confused. Review of Systems See HPI for pertinent positives & negatives. A total of 10 systems reviewed and were otherwise negative. Past Medical & Surgical Medical Problems: (1) Anxiety (2) Deep venous thrombosis (3) Depression (4) Diverticulosis (5) Dyslipidemia (6) GERD (gastroesophageal reflux disease) (7) h/o Schatski's ring (8) H/O: CVA (cerebrovascular accident) (9) Hiatal hernia (10) History of peptic ulcer disease (11) Palpitations (12) Paroxysmal atrial fibrillation (13) Spondylolisthesis, lumbar region Surgical Problems: (1) H/O blepharoplasty (2) H/o cervical laminectomy (3) H/O elbow replacement (4) H/O esophagogastroduodenoscopy (5) H/O esophagogastroduodenoscopy (6) H/o excision radial head (7) H/O hernia repair (8) H/o paravaginal defect repair (9) H/o sacral nerve stimulator implant (10) H/o vesicourethropexy (11) H/O: hysterectomy (12) Hx of cholecystectomy (13) S/P appendectomy (14) S/P cataract surgery (15) S/P hip replacement Family History Omitted secondary to age Social History Smoking Status: Former Smoker Alcohol Use: none Drug Use: none Marital Status: Housing Status: lives alone Occupation Status: retired Current/Historical Medications Scheduled Azathioprine (Imuran), 1 TAB PO HS Clonazepam (Klonopin), 0.5 MG PO HS Magnesium Oxide (Magnesium Oxide), 1 CAP PO DAILY Mirtazapine (Remeron), 1 TAB PO HS Pantoprazole (Protonix), 40 MG PO QAM Potassium (Potassium), 250 MG PO DAILY Probiotic Product (Trubiotics), 1 CAP PO QAM Scheduled PRN Acetaminophen (Acetaminophen ER), 1 TAB PO Q8 PRN for Pain Allergies Coded Allergies: Iodinated Diagnostic Agents (Verified Allergy, Intermediate, Rash/Hives, ) Oxycodone (Verified Allergy, Intermediate, PERCOCET-ITCHING OF ARMS, SHOULDERS, 10/03/17) Chlorhexidine (Unverified Allergy, Unknown, RASH, 10/03/17) Corticosteroids (Verified Allergy, Unknown, STERIOD INJECTIONS - FLUSHING AND BLOTCHING REDNESS, 10/03/17) Dipyridamole (Verified Allergy, Unknown, reaction unknown, 05/08/17) Mepivacaine (Verified Allergy, Unknown, CAN'T REMEMBER?, 10/03/17) Morphine (Verified Allergy, Unknown, RASH, 10/03/17) Duloxetine (Verified Adverse Reaction, Severe, SEDATION & BAD DREAMS, 10/05) Codeine (Verified Adverse Reaction, Mild, GI UPSET, 10/03/17) Physical Exam Vital Signs Date Time Temp Pulse Resp B/P (MAP) Pulse Ox O2 Delivery O2 Flow Rate FiO2 11/24/17 20:32 61 18 113/66 95 Room Air 11/24/17 19:50 59 11/24/17 18:20 36.7 64 17 133/66 96 Room Air Physical Exam Vital signs reviewed. General: Well-appearing, elderly, in no significant distress. HEENT: No scleral icterus, PERRLA, neck supple. 2 cm hematoma/contusion to the occipital scalp Cardiovascular: Regular rate and rhythm, no extra sounds. Pulmonary: Clear to auscultation bilaterally, normal work of breathing. Abdomen: Soft, nontender, nondistended, positive bowel sounds. Musculoskeletal: Atraumatic, no significant deformity. Cervical, thoracic and lumbar spine are palpated, nontender, no step-off or deformity appreciated. Tenderness to palpation of the right elbow without significant deformity or swelling. Mild tenderness to palpation over the right lateral neck. Neurologic: Patient awake alert and oriented x 3, full strength in all 4 extremities. Questionable slurred speech. Skin: Warm, dry, no rash. No significant abrasions/laceration. Some facial flushing. Medical Decision & Procedures ER Provider Diagnostic Interpretation: Radiology results as stated below per my review and radiologist interpretation: R ELBOW MIN 3 VIEWS ROUTINE HISTORY: 82 years-old Female R elbow pain after trauma, h/o replacement acute right elbow pain COMPARISON: None available TECHNIQUE: 3 views of the right elbow FINDINGS: Bones appear moderately demineralized. Right elbow arthroplasty is noted with bony lucency noted adjacent to the capitellum, possibly focal demineralization. The radial head appears to be surgically absent. No acute fracture identified. No opaque foreign body. IMPRESSION: Right elbow arthroplasty without acute fracture. The above report was generated using voice recognition software. It may contain grammatical, syntax or spelling errors. Electronically signed by: Last Ruiz M.D. 11/24/2017 8:03 PM Dictated Date/Time: 11/24/2017 8:00 PM CERVICAL SPINE W/O CLINICAL HISTORY: 82 years-old Female with trauma. Acute neck injury COMPARISON: CTA of the neck 10/03/2017 TECHNIQUE: Multiple axial CT images of the cervical spine were obtained without contrast. A dose lowering technique was utilized adhering to the principles of ALARA. FINDINGS: The bones appear moderately demineralized. 3 mm anterolisthesis C3 on C4 likely degenerative with moderate facet arthrosis at this level. 3 mm anterolisthesis C4 on C5, 2 mm anterolisthesis C7 on T1, T1 on T2 and 4 mm anterolisthesis T2 on T3 which is likely degenerative. Severe facet arthrosis is seen at several levels. Partial facet bony fusion is noted at C4-C5 and C5-C6. Anterior plate and screw fusion of the C4-C7 vertebral bodies with anterior cannulated screws noted at C4 and C7. No acute fracture or subluxation identified. Multilevel uncovertebral spurring results in varying degrees of neuroforaminal narrowing. No definite high-grade central canal stenosis. Moderate left mastoid effusion. Mild mucosal thickening of the right maxillary sinus. Soft tissues are unremarkable. The thyroid appears mildly heterogeneous. No pneumothorax. Mild biapical pleural-parenchymal scarring of the lungs. IMPRESSION: No acute fracture identified. The above report was generated using voice recognition software. It may contain grammatical, syntax or spelling errors. Electronically signed by: Lsat Ruiz M.D. 11/24/2017 8:11 PM Dictated Date/Time: 11/24/2017 8:04 PM HEAD WITHOUT CONTRAST (CT) CLINICAL HISTORY: 82 years-old Female with trauma. Acute head injury TECHNIQUE: Multiple axial CT images of the head were obtained without contrast. A dose lowering technique was utilized adhering to the principles of ALARA. CT DOSE: 977.85 mGy.cm COMPARISON: CT cervical spine of same day, CTA had 10/03/2017 FINDINGS: No acute intracranial hemorrhage, midline shift, intra-axial mass, hydrocephalus, territorial ischemia or acute extra-axial collection. 6 mm calcification adjacent to the medial aspect left middle cranial fossa is unchanged and may reflect a calcified meningioma moderate atrophy with mild ill-defined areas of low-attenuation within the periventricular white matter suggesting chronic microvascular ischemic changes. The calvarium is intact. The paranasal sinuses, mastoid air cells, and middle ear cavities are clear. IMPRESSION: No acute intracranial abnormality or calvarial fracture. The above report was generated using voice recognition software. It may contain grammatical, syntax or spelling errors. Electronically signed by: Last Ruiz M.D. 11/24/2017 8:00 PM Dictated Date/Time: 11/24/2017 7:55 PM Laboratory Results 11/24/17 19:05 Red Blood Count 3.63, Mean Corpuscular Volume 89.5, Mean Corpuscular Hemoglobin 30.0, Mean Corpuscular Hemoglobin Concent 33.5, Mean Platelet Volume 9.5, Neutrophils (%) (Auto) 82.4, Lymphocytes (%) (Auto) 8.3, Monocytes (%) (Auto) 9.0, Eosinophils (%) (Auto) 0.0, Basophils (%) (Auto) 0.1, Neutrophils # (Auto) 9.17, Lymphocytes # (Auto) 0.92, Monocytes # (Auto) 1.00, Eosinophils # (Auto) 0.00, Basophils # (Auto) 0.01 11/24/17 19:05 Test 11/24/17 19:05 11/24/17 20:43 White Blood Count 11.12 K/uL (4.8-10.8) Red Blood Count 3.63 M/uL (4.2-5.4) Hemoglobin 10.9 g/dL (12.0-16.0) Hematocrit 32.5 % (37-47) Mean Corpuscular Volume 89.5 fL (80-100) Mean Corpuscular Hemoglobin 30.0 pg (25-34) Mean Corpuscular Hemoglobin Concent 33.5 g/dl (32-36) Platelet Count 246 K/uL (130-400) Mean Platelet Volume 9.5 fL (7.4-10.4) Neutrophils (%) (Auto) 82.4 % Lymphocytes (%) (Auto) 8.3 % Monocytes (%) (Auto) 9.0 % Eosinophils (%) (Auto) 0.0 % Basophils (%) (Auto) 0.1 % Neutrophils # (Auto) 9.17 K/uL (1.4-6.5) Lymphocytes # (Auto) 0.92 K/uL (1.2-3.4) Monocytes # (Auto) 1.00 K/uL (0.11-0.59) Eosinophils # (Auto) 0.00 K/uL (0-0.5) Basophils # (Auto) 0.01 K/uL (0-0.2) RDW Standard Deviation 50.3 fL (36.4-46.3) RDW Coefficient of Variation 15.4 % (11.5-14.5) Immature Granulocyte % (Auto) 0.2 % Immature Granulocyte # (Auto) 0.02 K/uL (0.00-0.02) Prothrombin Time 10.6 SECONDS (9.0-12.0) Prothromb Time International Ratio 1.0 (0.9-1.1) Activated Partial Thromboplast Time 23.4 SECONDS (21.0-31.0) Partial Thromboplastin Ratio 0.9 Anion Gap 4.0 mmol/L (3-11) Est Creatinine Clear Calc Drug Dose 40.3 ml/min Estimated GFR () 74.0 Estimated GFR (Non- 63.8 BUN/Creatinine Ratio 28.5 (10-20) Calcium Level 8.8 mg/dl (8.5-10.1) Total Bilirubin 0.2 mg/dl (0.2-1) Direct Bilirubin < 0.1 mg/dl (0-0.2) Aspartate Amino Transf (AST/SGOT) 17 U/L (15-37) Alanine Aminotransferase (ALT/SGPT) 15 U/L (12-78) Alkaline Phosphatase 142 U/L (45-117) Total Protein 8.2 gm/dl (6.4-8.2) Albumin 3.6 gm/dl (3.4-5.0) Urine Color YELLOW Urine Appearance CLEAR (CLEAR) Urine pH 6.5 (4.5-7.5) Urine Specific [place] 1.018 (1.000-1.030) Urine Protein NEG (NEG) Urine Glucose (UA) NEG (NEG) Urine Ketones NEG (NEG) Urine Occult Blood 2+ (NEG) Urine Nitrite NEG (NEG) Urine Bilirubin NEG (NEG) Urine Urobilinogen NEG (NEG) Urine Leukocyte Esterase MODERATE (NEG) Urine WBC (Auto) 10-30 /hpf (0-5) Urine RBC (Auto) 10-30 /hpf (0-4) Urine Hyaline Casts (Auto) 0 /lpf (0-5) Urine Epithelial Cells (Auto) 5-10 /lpf (0-5) Urine Bacteria (Auto) NEG (NEG) Laboratory results per my review. ECG Per My Interpretation Indication: other (LOC) Rate (beats per minute): 56 Rhythm: sinus bradycardia Findings: left axis deviation, no ectopy, other (no ST segment changes) ED Course 1840: Past medical records reviewed. The patient was evaluated in room A2. A complete history and physical examination was performed. 2107: Upon reevaluation, the patient appeared to have improvement of her symptoms. I discussed findings with her. She verbalized agreement of the treatment plan. The patient was discharged home. Medical Decision Differential diagnosis: Intracranial injury, cervical spine injury, intrathoracic injury, intra- abdominal injury, musculoskeletal injury. This patient was evaluated and appeared to be in no significant distress. Physical examination is fairly unrevealing. The patient has a questionable slurred speech however she is answering questions appropriately. Patient has had no vomiting in the fall was unwitnessed. She does believe she had a loss of consciousness. CT scan of the head and cervical spine are negative. Patient felt well for discharge. She was discharged to the care of her family and they were advised not to leave her alone this evening. She will need to be evaluated frequently tonight to ensure a normal mental status. They will return to the emergency department immediately for worsening of symptoms or any medical concerns. Medication Reconcilliation Current Medication List: was personally reviewed by me Blood Pressure Screening Patient's blood pressure: Normal blood pressure Blood pressure disposition: Did not require urgent referral Impression Primary Impression: Closed head injury Additional Impression: Fall Scribe Attestation The scribe's documentation has been prepared under my direction and personally reviewed by me in its entirety. I confirm that the note above accurately reflects all work, treatment, procedures, and medical decision making performed by me. Departure Information Dispostion Home / Self-Care Referrals Richa Mejia M.D. (PCP) Forms HOME CARE DOCUMENTATION FORM, IMPORTANT VISIT INFORMATION Patient Instructions My [facility] Additional Instructions Diagnosis: Closed head injury, fall Tylenol 650 mg every 6 hours as needed for pain. Ice the elbow intermittently for the next 24 hours. Follow-up with your primary care physician this week for reevaluation. Return to the ER for worsening of symptoms or any medical concerns. Problem Qualifiers
[2017-11-24 19:41] LABS: PTT PATIENT 23.4 SECONDS (21.0-31.0)
[2017-11-24 19:53] LABS: ALBUMIN 3.6 gm/dl (3.4-5.0); ALT/SGPT 15 U/L (12-78); AST/SGOT 17 U/L (15-37); BLOOD UREA NITROGEN 24 mg/dl (7-18); CALCIUM 8.8 mg/dl (8.5-10.1); CARBON DIOXIDE 26 mmol/L (21-32); CREATININE 0.85 mg/dl (0.60-1.20); GLUCOSE 106 mg/dl (70-99); POTASSIUM 3.8 mmol/L (3.5-5.1); SODIUM 134 mmol/L (136-145)
[2017-11-24 19:56] LABS: ALKALINE PHOSPHATASE 142 U/L (45-117); TOTAL PROTEIN 8.2 gm/dl (6.4-8.2)
--- NOTE | 2017-11-24 20:02 | DIAGNOSTIC IMAGING REPORT ---
HEAD WITHOUT CONTRAST (CT) CLINICAL HISTORY: 82 years-old Female with trauma. Acute head injury TECHNIQUE: Multiple axial CT images of the head were obtained without contrast. A dose lowering technique was utilized adhering to the principles of ALARA. CT DOSE: 977.85 mGy.cm COMPARISON: CT cervical spine of same day, CTA had 10/03/2017 FINDINGS: No acute intracranial hemorrhage, midline shift, intra-axial mass, hydrocephalus, territorial ischemia or acute extra-axial collection. 6 mm calcification adjacent to the medial aspect left middle cranial fossa is unchanged and may reflect a calcified meningioma moderate atrophy with mild ill-defined areas of low-attenuation within the periventricular white matter suggesting chronic microvascular ischemic changes. The calvarium is intact. The paranasal sinuses, mastoid air cells, and middle ear cavities are clear. IMPRESSION: No acute intracranial abnormality or calvarial fracture. The above report was generated using voice recognition software. It may contain grammatical, syntax or spelling errors. Electronically signed by: Last Ruiz M.D. 11/24/2017 8:00 PM Dictated Date/Time: 11/24/2017 7:55 PM
--- NOTE | 2017-11-24 20:04 | DIAGNOSTIC IMAGING REPORT ---
R ELBOW MIN 3 VIEWS ROUTINE HISTORY: 82 years-old Female R elbow pain after trauma, h/o replacement acute right elbow pain COMPARISON: None available TECHNIQUE: 3 views of the right elbow FINDINGS: Bones appear moderately demineralized. Right elbow arthroplasty is noted with bony lucency noted adjacent to the capitellum, possibly focal demineralization. The radial head appears to be surgically absent. No acute fracture identified. No opaque foreign body. IMPRESSION: Right elbow arthroplasty without acute fracture. The above report was generated using voice recognition software. It may contain grammatical, syntax or spelling errors. Electronically signed by: Last Ruiz M.D. 11/24/2017 8:03 PM Dictated Date/Time: 11/24/2017 8:00 PM
--- NOTE | 2017-11-24 20:12 | DIAGNOSTIC IMAGING REPORT ---
CERVICAL SPINE W/O CLINICAL HISTORY: 82 years-old Female with trauma. Acute neck injury COMPARISON: CTA of the neck 10/03/2017 TECHNIQUE: Multiple axial CT images of the cervical spine were obtained without contrast. A dose lowering technique was utilized adhering to the principles of ALARA. FINDINGS: The bones appear moderately demineralized. 3 mm anterolisthesis C3 on C4 likely degenerative with moderate facet arthrosis at this level. 3 mm anterolisthesis C4 on C5, 2 mm anterolisthesis C7 on T1, T1 on T2 and 4 mm anterolisthesis T2 on T3 which is likely degenerative. Severe facet arthrosis is seen at several levels. Partial facet bony fusion is noted at C4-C5 and C5-C6. Anterior plate and screw fusion of the C4-C7 vertebral bodies with anterior cannulated screws noted at C4 and C7. No acute fracture or subluxation identified. Multilevel uncovertebral spurring results in varying degrees of neuroforaminal narrowing. No definite high-grade central canal stenosis. Moderate left mastoid effusion. Mild mucosal thickening of the right maxillary sinus. Soft tissues are unremarkable. The thyroid appears mildly heterogeneous. No pneumothorax. Mild biapical pleural-parenchymal scarring of the lungs. IMPRESSION: No acute fracture identified. The above report was generated using voice recognition software. It may contain grammatical, syntax or spelling errors. Electronically signed by: Last Ruiz M.D. 11/24/2017 8:11 PM Dictated Date/Time: 11/24/2017 8:04 PM
[2017-11-24 20:32] VITALS: BP 113/66; PULSE 61; O2SAT 95
== END 2017-11-24 21:23 | disposition home or self-care (01) ==
LOC: C.EDB 18:17 → C.EDA 21:23
DX: S09.90XA Unspecified injury of head, initial encounter (principal); W10.9XXA Fall (on) (from) unspecified stairs and steps, initial encounter; Y92.015 Private garage of single-family (private) house as the place of occurrence of the external cause; F32.9 Major depressive disorder, single episode, unspecified; E78.5 Hyperlipidemia, unspecified; K21.9 Gastro-esophageal reflux disease without esophagitis; K57.90 Diverticulosis of intestine, part unspecified, without perforation or abscess without bleeding; I48.0 Paroxysmal atrial fibrillation; M43.16 Spondylolisthesis, lumbar region; Z87.11 Personal history of peptic ulcer disease; Z86.718 Personal history of other venous thrombosis and embolism; Z86.73 Personal history of transient ischemic attack (TIA), and cerebral infarction without residual deficits; Z96.9 Presence of functional implant, unspecified; Z90.710 Acquired absence of both cervix and uterus; Z90.49 Acquired absence of other specified parts of digestive tract; Z90.89 Acquired absence of other organs; Z96.649 Presence of unspecified artificial hip joint; Z87.891 Personal history of nicotine dependence; Z79.899 Other long term (current) drug therapy; Z91.041 Radiographic dye allergy status; Z88.5 Allergy status to narcotic agent; Z88.8 Allergy status to other drugs, medicaments and biological substances

== ENCOUNTER 2018-02-16 18:46 | Observation (INO) | payer BC ==
[~2018-02-16] VITALS: Ht 167.6 cm; Wt 53.8 kg
[~2018-02-16 18:46] MED LIST changes: -CLON0.5T3 PO; +KLN/5 PO
[2018-02-16] MEDS ORDERED: FENTANYL CITRATE INJ 50 MCG/1 ML 2 ML VIAL IV STA (18:53)
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
[2018-02-16] MEDS ORDERED: PANT40TA2 PO (19:31)
[2018-02-16] MEDS ORDERED: ZLF/100 PO (19:31)
[2018-02-16] MEDS ORDERED: POTA550T4 PO (19:31)
[2018-02-16] MEDS ORDERED: ULT50 PO (19:31)
[2018-02-16] MEDS ORDERED: AZAT50TA30 PO (19:31)
[2018-02-16] MEDS ORDERED: ONDA-63 PO (19:31)
[2018-02-16] MEDS ORDERED: B-COTAB18 PO (19:32)
[2018-02-16] MEDS ORDERED: KLN/5 PO (19:33)
--- NOTE | 2018-02-16 19:34 | DIAGNOSTIC IMAGING REPORT ---
HEAD WITHOUT CONTRAST (CT) CT DOSE: 971.69 mGy.cm HISTORY: Trauma fall, head injury TECHNIQUE: Multiaxial CT images of the head were performed without the use of intravenous contrast. A dose lowering technique was utilized adhering to the principles of ALARA. Comparison: 11/24/2017 Findings: The paranasal sinuses and mastoid air cells are clear. The calvarium and skull base are intact. The ventricles and sulci are within normal limits. There is no mass, hematoma, midline shift, or acute infarct. Impression: No acute intracranial abnormality. The above report was generated using voice recognition software. It may contain grammatical, syntax or spelling errors. Electronically signed by: Sridhar Kirk M.D. 02/16/2018 7:33 PM Dictated Date/Time: 02/16/2018 7:32 PM
--- NOTE | 2018-02-16 19:37 | DIAGNOSTIC IMAGING REPORT ---
CERVICAL SPINE W/O CT DOSE: HISTORY: Trauma fall, posterior neck pain TECHNIQUE: Multiaxial CT images of the cervical spine were performed and reformatted in the sagittal and coronal plane without the use of contrast. A dose lowering technique was utilized adhering to the principles of ALARA. COMPARISON: 11/24/2017 FINDINGS: Operative changes consistent with an anterior fusion from C4 through C7. Moderate degenerative disc changes throughout. No evidence for compression deformity. Posterior elements are intact throughout. IMPRESSION: Degenerative and postoperative change. No acute bony abnormality. The above report was generated using voice recognition software. It may contain grammatical, syntax or spelling errors. Electronically signed by: Sridhar Kirk M.D. 02/16/2018 7:35 PM Dictated Date/Time: 02/16/2018 7:34 PM
--- NOTE | 2018-02-16 20:07 | DIAGNOSTIC IMAGING REPORT ---
CHEST ONE VIEW PORTABLE CLINICAL HISTORY: fall left shoulder pain trauma. Pain. COMPARISON STUDY: 10/03/2017 FINDINGS: Slightly impacted fracture left humeral neck. Vertical fracture distal aspect left clavicle. Remaining osseous structures appear unremarkable. IMPRESSION: 1. Slightly impacted fracture left humeral neck. 2. Slightly displaced fracture distal left clavicle.. The above report was generated using voice recognition software. It may contain grammatical, syntax or spelling errors. Electronically signed by: Sridhar Kirk M.D. 02/16/2018 8:05 PM Dictated Date/Time: 02/16/2018 8:04 PM
--- NOTE | 2018-02-16 20:08 | DIAGNOSTIC IMAGING REPORT ---
L PELVIS/UNILATERAL HIP 2-3VIEWS CLINICAL HISTORY: fall, left hip pain trauma. Pain. COMPARISON: None. DISCUSSION: Bilateral total hip arthroplasties. Postoperative and degenerative change of the lumbar spine. Good contact between metallic prosthetic and underlying bone. No evidence for acetabular protrusion. There is no evidence for soft tissue swelling. IMPRESSION: Degenerative and postoperative change. No acute process of the pelvis or left hip. The above report was generated using voice recognition software. It may contain grammatical, syntax or spelling errors. Electronically signed by: Sridhar Kirk M.D. 02/16/2018 8:07 PM Dictated Date/Time: 02/16/2018 8:06 PM
--- NOTE | 2018-02-16 20:09 | DIAGNOSTIC IMAGING REPORT ---
L HUMERUS MIN 2 VIEWS ROUTINE CLINICAL HISTORY: fall, left humerus pain trauma. Pain. COMPARISON: None. DISCUSSION: Slightly impacted fracture left humeral neck. Fracture distal aspect left clavicle. Mid and distal aspect of the humerus appear unremarkable. There is no evidence for soft tissue swelling. IMPRESSION: 1. Slightly impacted fracture proximal left humeral neck. 2. Fracture distal left clavicle. The above report was generated using voice recognition software. It may contain grammatical, syntax or spelling errors. Electronically signed by: Sridhar Kirk M.D. 02/16/2018 8:08 PM Dictated Date/Time: 02/16/2018 8:07 PM
[2018-02-16] MEDS ORDERED: HYDROmorphone INJ 1 MG/ML SYR IV STA ×2 (20:11→21:47)
[2018-02-16 20:49] LABS: BASO % 0.1 %; BASO ABS # 0.01 K/uL (0-0.2); EOS % 1.3 %; EOS ABS # 0.09 K/uL (0-0.5); HEMATOCRIT 32.1 % (37-47); HEMOGLOBIN 10.6 g/dL (12.0-16.0); IG# 0.02 K/uL (0.00-0.02); LYMPH % 14.3 %; MEAN CELL VOLUME 89.2 fL (80-100); MEAN CORPUSCULAR HEMOGLOBIN 29.4 pg (25-34); MEAN PLATELET VOLUME 9.4 fL (7.4-10.4); MONO % 10.6 %; MONO ABS # 0.74 K/uL (0.11-0.59); NEUT % 73.4 %; NEUT ABS # 5.12 K/uL (1.4-6.5); PLATELET COUNT 227 K/uL (130-400); RED CELL DISTRIBUTION WIDTH CV 16.8 % (11.5-14.5); RED CELL DISTRIBUTION WIDTH SD 55.2 fL (36.4-46.3); WHITE BLOOD COUNT 6.98 K/uL (4.8-10.8)
[2018-02-16 21:08] LABS: CALCIUM 8.8 mg/dl (8.5-10.1); CREATININE 0.68 mg/dl (0.60-1.20); POTASSIUM 3.5 mmol/L (3.5-5.1)
[2018-02-16] MEDS ORDERED: ALUMINUM/MAGNESIUM/SIMETH (MAALOX MAX) 30 ML UDC PO PRN (22:45)
[2018-02-16] MEDS ORDERED: ACETAMINOPHEN 325 MG TAB PO PRN (22:45)
[2018-02-16] MEDS ORDERED: ONDANSETRON INJ 2 MG/ML 2 ML VIAL IV PRN (22:45)
[2018-02-16] MEDS ORDERED: potassium PO (22:53)
[2018-02-16] MEDS ORDERED: NURSING VERBAL MED ORDER ONE ×2 (23:30)
[2018-02-16 23:35] VITALS: BP 133/70; PULSE 76; TEMP 36.9; O2SAT 98; BMI 19.1
[2018-02-17] MEDS ORDERED: POLYETHYLENE (MIRALAX) 17 GM PACK PO PRN (00:15)
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
[2018-02-17] MEDS ORDERED: IV FLUIDS COMPLETED PRN (02:00)
[2018-02-17] MEDS ORDERED: SODIUM CHLORIDE 0.9% 1000ML 1,000 ML IV SCH ×2 (03:00→16:45)
[2018-02-17] MEDS: HYDROmorphone INJ 0.5 MG/0.5 ML SYR IV PRN ×6 (03:43→23:33)
[2018-02-17] MEDS: TRAMADOL HCL 50 MG TAB PO PRN (06:19)
[2018-02-17 06:51] LABS: BASO % 0.2 %; BASO ABS # 0.01 K/uL (0-0.2); EOS % 1.7 %; EOS ABS # 0.09 K/uL (0-0.5); HEMATOCRIT 32.6 % (37-47); HEMOGLOBIN 10.4 g/dL (12.0-16.0); IG# 0.01 K/uL (0.00-0.02); LYMPH % 11.9 %; LYMPH ABS # 0.63 K/uL (1.2-3.4); MEAN CELL VOLUME 91.3 fL (80-100); MEAN CORPUSCULAR HEMOGLOBIN 29.1 pg (25-34); MEAN CORPUSCULAR HGB CONC 31.9 g/dl (32-36); MEAN PLATELET VOLUME 9.3 fL (7.4-10.4); MONO % 15.3 %; MONO ABS # 0.81 K/uL (0.11-0.59); NEUT % 70.7 %; NEUT ABS # 3.74 K/uL (1.4-6.5); PLATELET COUNT 219 K/uL (130-400); RED CELL DISTRIBUTION WIDTH CV 17.2 % (11.5-14.5); RED CELL DISTRIBUTION WIDTH SD 57.7 fL (36.4-46.3); WHITE BLOOD COUNT 5.29 K/uL (4.8-10.8)
[2018-02-17 06:52] VITALS: BP 96/60; PULSE 80; TEMP 36.8; O2SAT 97
[2018-02-17 07:18] LABS: CALCIUM 8.2 mg/dl (8.5-10.1); CREATININE 0.66 mg/dl (0.60-1.20); POTASSIUM 3.9 mmol/L (3.5-5.1)
--- NOTE | 2018-02-17 08:03 | DIAGNOSTIC IMAGING REPORT ---
L CLAVICLE CLINICAL HISTORY: 83 years-old Female presenting with view fx left clavicle. TECHNIQUE: Frontal and apical lordotic views of the left clavicle were obtained. COMPARISON: Plain radiographs of the shoulder performed the previous day. FINDINGS: Impacted left humeral neck fracture again noted. Suspected significant rotation of the humeral head. This malalignment appears to be worsened from prior. Redemonstration of the fracture of the distal diaphysis of the left clavicle. There is less than one half shaft width superior displacement of the distal fracture fragment, which remains congruent with the acromion process. Anterior cervical fusion hardware noted. Visualized portion of the left hemithorax demonstrates a suspected spinal stimulator lead or catheter projecting over the mediastinum. IMPRESSION: 1. Mildly displaced fracture of the distal diaphysis of the left clavicle. 2. Impacted fracture of the left humeral neck as on prior exam though there is suspected worsened alignment due to rotation of the humeral head. Electronically signed by: Javi Martinez M.D. 02/17/2018 8:01 AM Dictated Date/Time: 02/17/2018 7:59 AM
[2018-02-17] MEDS: AZATHIOPRINE 50 MG TAB PO SCH (08:29)
[2018-02-17] MEDS: SERTRALINE HCL 100 MG TAB PO SCH (08:29)
[2018-02-17] MEDS: MAGNESIUM OXIDE 400 MG TAB PO SCH (08:29)
[2018-02-17] MEDS: VITAMIN B COMPLEX TAB PO SCH (08:29)
[2018-02-17] MEDS: PANTOprazole SOD 40 MG TAB PO SCH (08:30)
[2018-02-17] MEDS: ENOXAPARIN 40 MG/0.4 ML SYR SQ SCH (08:37)
--- NOTE | 2018-02-17 14:37 | Progress Note ---
Internal Med Progress Note Date of Service: Feb 17, 2018. Provider Documentation: SUBJECTIVE: Seen and examined at bedside States having left Upper Extremity pain and has decreased ROM Also has nausea Denies chest pain, SOB, dizziness OBJECTIVE: Vital Signs-as noted below Physical Exam: General Appearance:Moderately built and nourished, no apparent distress Head: normocephalic, Atraumatic Eyes: normal inspection, EOMI, PERRL Neck: supple, Trachea midline Respiratory/Chest: Normal breath sounds, CTA Cardiovascular: S1, S2, +murmur Abdomen/GI:Soft, Non tender, Bowel sounds present Extremities/Musculoskelatal:normal inspection, no edema, Left UE in sling, decreased ROM Neurologic/Psych:AAOX3, grossly no focal neurological deficits Skin: normal color, warm Lab data as noted below. ASSESSMENT & PLAN: Patient is an 83 yr female who presents with fall and sustained left humerus and clavicle fracture S/P Mechanical Fall Left proximal humerus fracture and distal clavicle fracture Continue conservative management Consulted orthopedics Pain Control PT/OT social service for discharge planning Urinary Retention Bladder scan protocol Straight cath PRN H/O autoimmune hepatitis On Imuran Depression: Continue Zoloft H/O HTN: Not on meds hesitant to be started on meds prescribed by PCP per records GERD: continue Protonix H/O CVA: Not on Meds Has chronic dysphagia secondary to CVA Follows with Speech therapy as outpatient H/O nocturnal hypoxia Oxygen QHS DVT Px: Lovenox SQ Code Status: DNR Disposition: May need rehab placement Vital Signs: Date Time Temp Pulse Resp B/P (MAP) Pulse Ox O2 Delivery O2 Flow Rate FiO2 02/17/18 07:00 Room Air 02/17/18 06:52 36.8 80 16 96/60 (72) 97 Nasal Cannula 2.0 02/17/18 00:30 Nasal Cannula 2.5 02/16/18 23:35 36.9 76 16 133/70 98 Nasal Cannula 2.5 02/16/18 22:49 88 20 148/76 97 Nasal Cannula 2.5 02/16/18 21:44 83 20 175/85 96 Nasal Cannula 2.0 02/16/18 20:10 70 20 146/79 95 Room Air 02/16/18 18:51 36.4 69 22 140/79 98 Room Air Lab Results: Results Past 24 Hours Test 02/16/18 20:30 7/4/18 05:58 Range/Units White Blood Count 6.98 5.29 4.8-10.8 K/uL Red Blood Count 3.60 3.57 4.2-5.4 M/uL Hemoglobin 10.6 10.4 12.0-16.0 g/dL Hematocrit 32.1 32.6 37-47 % Mean Corpuscular Volume 89.2 91.3 80-100 fL Mean Corpuscular Hemoglobin 29.4 29.1 25-34 pg Mean Corpuscular Hemoglobin Concent 33.0 31.9 32-36 g/dl Platelet Count 227 219 130-400 K/uL Mean Platelet Volume 9.4 9.3 7.4-10.4 fL Neutrophils (%) (Auto) 73.4 70.7 % Lymphocytes (%) (Auto) 14.3 11.9 % Monocytes (%) (Auto) 10.6 15.3 % Eosinophils (%) (Auto) 1.3 1.7 % Basophils (%) (Auto) 0.1 0.2 % Neutrophils # (Auto) 5.12 3.74 1.4-6.5 K/uL Lymphocytes # (Auto) 1.00 0.63 1.2-3.4 K/uL Monocytes # (Auto) 0.74 0.81 0.11-0.59 K/uL Eosinophils # (Auto) 0.09 0.09 0-0.5 K/uL Basophils # (Auto) 0.01 0.01 0-0.2 K/uL RDW Standard Deviation 55.2 57.7 36.4-46.3 fL RDW Coefficient of Variation 16.8 17.2 11.5-14.5 % Immature Granulocyte % (Auto) 0.3 0.2 % Immature Granulocyte # (Auto) 0.02 0.01 0.00-0.02 K/uL Prothrombin Time 10.7 9.0-12.0 SECONDS Prothromb Time International Ratio 1.0 0.9-1.1 Sodium Level 138 139 136-145 mmol/L Potassium Level 3.5 3.9 3.5-5.1 mmol/L Chloride Level 105 105 98-107 mmol/L Carbon Dioxide Level 27 32 21-32 mmol/L Anion Gap 7.0 2.0 3-11 mmol/L Blood Urea Nitrogen 16 17 7-18 mg/dl Creatinine 0.68 0.66 0.60-1.20 mg/dl Est Creatinine Clear Calc Drug Dose 55.0 54.9 ml/min Estimated GFR () 93.8 94.7 Estimated GFR (Non- 80.9 81.7 BUN/Creatinine Ratio 23.8 25.0 10-20 Random Glucose 106 119 70-99 mg/dl Calcium Level 8.8 8.2 8.5-10.1 mg/dl Magnesium Level 2.3 1.8-2.4 mg/dl
[2018-02-17 15:38] VITALS: BP 99/62; PULSE 78; TEMP 36.8; O2SAT 91
[2018-02-17 23:03] VITALS: BP 108/66; PULSE 77; TEMP 36.9; O2SAT 96
[2018-02-18] MEDS: HYDROmorphone INJ 0.5 MG/0.5 ML SYR IV PRN ×3 (04:23→21:50)
[2018-02-18] MEDS: TRAMADOL HCL 50 MG TAB PO PRN (05:37)
[2018-02-18 06:02] LABS: BASO % 0.2 %; BASO ABS # 0.01 K/uL (0-0.2); EOS % 2.2 %; EOS ABS # 0.13 K/uL (0-0.5); HEMATOCRIT 31.9 % (37-47); HEMOGLOBIN 10.3 g/dL (12.0-16.0); IG# 0.01 K/uL (0.00-0.02); LYMPH % 12.8 %; LYMPH ABS # 0.77 K/uL (1.2-3.4); MEAN CELL VOLUME 92.2 fL (80-100); MEAN CORPUSCULAR HEMOGLOBIN 29.8 pg (25-34); MEAN CORPUSCULAR HGB CONC 32.3 g/dl (32-36); MEAN PLATELET VOLUME 9.5 fL (7.4-10.4); MONO % 13.6 %; MONO ABS # 0.82 K/uL (0.11-0.59); NEUT ABS # 4.27 K/uL (1.4-6.5); PLATELET COUNT 201 K/uL (130-400); RED CELL DISTRIBUTION WIDTH CV 16.9 % (11.5-14.5); RED CELL DISTRIBUTION WIDTH SD 56.8 fL (36.4-46.3); WHITE BLOOD COUNT 6.01 K/uL (4.8-10.8)
[2018-02-18] MEDS ORDERED: CETIRIZINE HCL 10 MG TAB PO ONE (06:30)
[2018-02-18 06:40] LABS: CREATININE 0.54 mg/dl (0.60-1.20); POTASSIUM 3.8 mmol/L (3.5-5.1)
[2018-02-18 07:35] VITALS: O2SAT 98
[2018-02-18 07:50] VITALS: BP 103/57; PULSE 68; TEMP 37.5; O2SAT 90
[2018-02-18] MEDS: SERTRALINE HCL 100 MG TAB PO SCH (08:29)
[2018-02-18] MEDS: AZATHIOPRINE 50 MG TAB PO SCH (08:29)
[2018-02-18] MEDS: PANTOprazole SOD 40 MG TAB PO SCH (08:29)
[2018-02-18] MEDS: VITAMIN B COMPLEX TAB PO SCH (08:30)
[2018-02-18] MEDS: ENOXAPARIN 40 MG/0.4 ML SYR SQ SCH (08:30)
[2018-02-18] MEDS: MAGNESIUM OXIDE 400 MG TAB PO SCH (08:30)
[2018-02-18] MEDS: LIDODERM (LIDOCAINE) PATCH 5% TD SCH (09:47)
[2018-02-18] MEDS: KETOROLAC TROMETHAMINE 10 MG TAB PO PRN ×2 (09:48→20:32)
--- NOTE | 2018-02-18 11:01 | ORTHOPEDIC PROGRESS NOTE ---
DATE: 02/18/2018 Orthopedic progress note. CHIEF COMPLAINT: She presents with left shoulder pain and left clavicle pain. HISTORY OF PRESENT ILLNESS: Tay is a very pleasant 83-year-old female who sustained an injury to her left shoulder and clavicle on 02/16/2018. She was heating up some food in the microwave. She heard a pop in a microwave to start a little bit. She jumped back and fell down. She fell directly on her left shoulder. She presented to [facility] on 02/16/2018. X-rays taken showed that there was an impacted proximal humerus fracture of the left shoulder. There was also a fracture of her left distal clavicle as well. They placed her in a sling. They admitted her for pain control as well. Overall, she is doing pretty well. She is in the bed. She is alert and oriented. She is in no terrible distress. OBJECTIVE: VITAL SIGNS: Her temperature is 37.7 degrees Celsius orally, pulse is 68, respiratory rate is 16, blood pressure is 103/57. She is not on any O2. MUSCULOSKELETAL: She is neurovascularly intact on her left distal extremities. She has a little bit of pain with palpation over the left distal clavicle. No obvious deformities were noted upon inspection of the left shoulder. Range of motion is very limited with flexion, abduction due to pain. Strength test cannot be elicited due to pain as well. ASSESSMENT/DIAGNOSES: 1. Impacted proximal humerus fracture of the left shoulder. 2. Displaced distal clavicle fracture of left clavicle. PLAN: At this time, I see this is a nonsurgical case. It is best managed conservatively with an arm sling and pain management with oral medication. Recommend that she continue with the arm sling. Recommend she get out of the arm sling intermittently, move her elbow to keep range of motion intact. I would like to follow her back up [facility] and see Dr. Estrada in approximately 2 weeks. We will call her with an appointment date with that. Recommend holding off on any physical therapy till we follow her up in the office in a couple weeks. Recommend oral pain medications for pain control. Thank you very much for the consultation.
[2018-02-18 12:08] VITALS: Ht 167.6 cm; Wt 53.8 kg
[2018-02-18] MEDS ORDERED: TAMSULOSIN HCL 0.4 MG CAP PO ONE (14:00)
[2018-02-18] MEDS ORDERED: DOCUSATE SODIUM 100 MG CAP PO ONE (14:00)
--- NOTE | 2018-02-18 14:04 | Progress Note ---
Internal Med Progress Note Date of Service: Feb 18, 2018. Provider Documentation: SUBJECTIVE: Seen and examined at bedside left Upper Extremity pain is better Denies chest pain, SOB, dizziness Reports constipation OBJECTIVE: Vital Signs-as noted below Physical Exam: General Appearance:Moderately built and nourished, no apparent distress Head: normocephalic, Atraumatic Eyes: normal inspection, EOMI, PERRL Neck: supple, Trachea midline Respiratory/Chest: Normal breath sounds, CTA Cardiovascular: S1, S2, +murmur Abdomen/GI:Soft, Non tender, Bowel sounds present Extremities/Musculoskelatal:normal inspection, no edema, Left UE in sling, decreased ROM 2/2 pain Neurologic/Psych:AAOX3, grossly no focal neurological deficits Skin: normal color, warm Lab data as noted below. ASSESSMENT & PLAN: Patient is an 83 yr female who presents with fall and sustained left humerus and clavicle fracture S/P Mechanical Fall Impacted Left proximal humerus fracture Displaced distal left clavicle fracture Continue conservative management Appreciate orthopedics Input Pain Control continue with the arm sling and out of the arm sling intermittently, move her elbow to keep range of motion intact. Hold off on PT/OT for left UE until seen by Orthopedics as outpatient Needs follow up with Orthopedics in 2 weeks Needs Rehab placement social service for discharge planning Urinary Retention Bladder scan protocol Straight cath PRN Start Flomax Constipation: Continue bowel regimen H/O autoimmune hepatitis On Imuran Depression: Continue Zoloft H/O HTN: Not on meds hesitant to be started on meds prescribed by PCP per records GERD: continue Protonix H/O CVA: Not on Meds Has chronic dysphagia secondary to CVA Follows with Speech therapy as outpatient H/O nocturnal hypoxia Oxygen QHS DVT Px: Lovenox SQ Code Status: DNR Disposition: Needs rehab placement Vital Signs: Date Time Temp Pulse Resp B/P (MAP) Pulse Ox O2 Delivery O2 Flow Rate FiO2 02/18/18 07:50 37.5 68 16 103/57 (72) 90 Room Air 02/18/18 07:35 98 Room Air 02/18/18 07:25 Room Air 02/18/18 07:25 Room Air 02/17/18 23:10 Nasal Cannula 2.0 02/17/18 23:03 36.9 77 18 108/66 (80) 96 Nasal Cannula 2.0 02/17/18 17:00 Nasal Cannula 02/17/18 15:38 36.8 78 16 99/62 (74) 91 Nasal Cannula 3.0 Lab Results: Results Past 24 Hours Test 02/18/18 05:45 Range/Units White Blood Count 6.01 4.8-10.8 K/uL Red Blood Count 3.46 4.2-5.4 M/uL Hemoglobin 10.3 12.0-16.0 g/dL Hematocrit 31.9 37-47 % Mean Corpuscular Volume 92.2 80-100 fL Mean Corpuscular Hemoglobin 29.8 25-34 pg Mean Corpuscular Hemoglobin Concent 32.3 32-36 g/dl Platelet Count 201 130-400 K/uL Mean Platelet Volume 9.5 7.4-10.4 fL Neutrophils (%) (Auto) 71.0 % Lymphocytes (%) (Auto) 12.8 % Monocytes (%) (Auto) 13.6 % Eosinophils (%) (Auto) 2.2 % Basophils (%) (Auto) 0.2 % Neutrophils # (Auto) 4.27 1.4-6.5 K/uL Lymphocytes # (Auto) 0.77 1.2-3.4 K/uL Monocytes # (Auto) 0.82 0.11-0.59 K/uL Eosinophils # (Auto) 0.13 0-0.5 K/uL Basophils # (Auto) 0.01 0-0.2 K/uL RDW Standard Deviation 56.8 36.4-46.3 fL RDW Coefficient of Variation 16.9 11.5-14.5 % Immature Granulocyte % (Auto) 0.2 % Immature Granulocyte # (Auto) 0.01 0.00-0.02 K/uL Sodium Level 136 136-145 mmol/L Potassium Level 3.8 3.5-5.1 mmol/L Chloride Level 101 98-107 mmol/L Carbon Dioxide Level 31 21-32 mmol/L Anion Gap 4.0 3-11 mmol/L Blood Urea Nitrogen 13 7-18 mg/dl Creatinine 0.54 0.60-1.20 mg/dl Est Creatinine Clear Calc Drug Dose 67.0 ml/min Estimated GFR () 101.1 Estimated GFR (Non- 87.3 BUN/Creatinine Ratio 23.4 10-20 Random Glucose 90 70-99 mg/dl Calcium Level 8.0 8.5-10.1 mg/dl Magnesium Level 2.1 1.8-2.4 mg/dl
[2018-02-18 15:08] VITALS: BP 90/52; PULSE 69
[2018-02-18 15:11] VITALS: BP 101/60; PULSE 65; TEMP 36.6; O2SAT 91
[2018-02-18] MEDS: DOCUSATE SODIUM 100 MG CAP PO SCH (20:32)
[2018-02-18 22:41] VITALS: BP 118/69; PULSE 70; TEMP 36.7; O2SAT 91
[2018-02-19] MEDS: KETOROLAC TROMETHAMINE 10 MG TAB PO PRN ×3 (05:41→23:54)
[2018-02-19 06:41] VITALS: BP 119/67; PULSE 63; TEMP 36.6; O2SAT 94
[2018-02-19 07:33] VITALS: BP 128/70; PULSE 65; TEMP 36.4; O2SAT 95
[2018-02-19 07:45] VITALS: O2SAT 95
[2018-02-19 08:14] LABS: BASO % 0.2 %; BASO ABS # 0.01 K/uL (0-0.2); EOS % 3.5 %; HEMATOCRIT 30.5 % (37-47); HEMOGLOBIN 9.9 g/dL (12.0-16.0); IG# 0.01 K/uL (0.00-0.02); LYMPH % 9.3 %; LYMPH ABS # 0.54 K/uL (1.2-3.4); MEAN CORPUSCULAR HEMOGLOBIN 29.2 pg (25-34); MEAN CORPUSCULAR HGB CONC 32.5 g/dl (32-36); MEAN PLATELET VOLUME 9.5 fL (7.4-10.4); MONO % 8.8 %; MONO ABS # 0.51 K/uL (0.11-0.59); NEUT ABS # 4.51 K/uL (1.4-6.5); PLATELET COUNT 205 K/uL (130-400); RED CELL DISTRIBUTION WIDTH CV 16.1 % (11.5-14.5); RED CELL DISTRIBUTION WIDTH SD 52.8 fL (36.4-46.3); WHITE BLOOD COUNT 5.78 K/uL (4.8-10.8)
[2018-02-19 08:21] LABS: CALCIUM 8.5 mg/dl (8.5-10.1); CREATININE 0.5 mg/dl (0.60-1.20); POTASSIUM 3.5 mmol/L (3.5-5.1)
[2018-02-19] MEDS: AZATHIOPRINE 50 MG TAB PO SCH (08:43)
[2018-02-19] MEDS: SERTRALINE HCL 100 MG TAB PO SCH (08:43)
[2018-02-19] MEDS: DOCUSATE SODIUM 100 MG CAP PO SCH ×2 (08:44→20:49)
[2018-02-19] MEDS: TAMSULOSIN HCL 0.4 MG CAP PO SCH (08:44)
[2018-02-19] MEDS: LIDODERM (LIDOCAINE) PATCH 5% TD SCH (08:45)
[2018-02-19] MEDS: ENOXAPARIN 40 MG/0.4 ML SYR SQ SCH (08:45)
[2018-02-19] MEDS: MAGNESIUM OXIDE 400 MG TAB PO SCH (08:52)
[2018-02-19] MEDS: PANTOprazole SOD 40 MG TAB PO SCH (08:52)
[2018-02-19] MEDS: VITAMIN B COMPLEX TAB PO SCH (08:53)
[2018-02-19 10:38] VITALS: BP 128/70; PULSE 65; TEMP 36.4; O2SAT 95
--- NOTE | 2018-02-19 12:18 | ORTHOPEDIC CONSULTATION ---
DATE OF CONSULTATION: 02/19/2018 CHIEF COMPLAINT: Consultation from a AKSHAT Williamson was reviewed. HISTORY OF PRESENT ILLNESS: Sylvia is a pleasant 83-year-old female who fell when she was startled by a microwave a couple of days ago. She came to the ER, and x-rays showed a stable left proximal humerus fracture and a distal clavicle fracture. She was placed in a sling and admitted for pain control. Overall, she is doing fairly well. She does not seem to have much pain in the shoulder. She was sitting quietly reading the paper when I came in the room. She is currently awaiting placement to rehabilitation. PHYSICAL EXAMINATION: On examination of the left shoulder, there is bruising and ecchymosis in the posterior aspect of the shoulder. She has no gross deformity. She is sitting quietly reading the paper using both hands. Her sling is not on, it is in the chair by her bed. She said the sling is bothersome. She has no neurologic deficits. IMAGING: X-rays reviewed do show an impacted stable left proximal humerus fracture and a moderately displaced left distal clavicle fracture. IMPRESSION: 1. Stable left proximal humerus fracture. 2. Left distal clavicle fracture. PLAN: These fractures can certainly be treated conservatively. She will probably be a little bit sore for about 6 weeks because of it. I usually recommend sling immobilization for around 6 weeks. She seems very comfortable out of the sling when she is lying, so I feel safe saying that she can be out of the sling when she is in bed, but I would like her to be in the sling when she is up and moving around. I will see her in my office in 2 weeks to get x-rays to make sure there has been no further displacement. My office phone number is [phone]. She is orthopedically stable for discharge, and I will initiate physical therapy after I see her in the office.
--- NOTE | 2018-02-19 14:21 | Progress Note ---
Internal Med Progress Note Date of Service: Feb 19, 2018. Provider Documentation: SUBJECTIVE: Seen and examined at bedside left Upper Extremity pain is controlled Had BM No other complaints Denies chest pain, SOB, dizziness OBJECTIVE: Vital Signs-as noted below Physical Exam: General Appearance:Moderately built and nourished, no apparent distress Head: normocephalic, Atraumatic Eyes: normal inspection, EOMI, PERRL Neck: supple, Trachea midline Respiratory/Chest: Normal breath sounds, CTA Cardiovascular: S1, S2, +murmur Abdomen/GI:Soft, Non tender, Bowel sounds present Extremities/Musculoskelatal:normal inspection, no edema, Left UE decreased ROM 2 /2 pain Neurologic/Psych:AAOX3, grossly no focal neurological deficits Skin: normal color, warm Lab data as noted below. ASSESSMENT & PLAN: Patient is an 83 yr female who presents with fall and sustained left humerus and clavicle fracture S/P Mechanical Fall Impacted Left proximal humerus fracture Displaced distal left clavicle fracture Continue conservative management Appreciate orthopedics Input Pain Control continue with the arm sling as per Orthopedics recommendations Hold off on PT/OT for left UE until seen by Orthopedics as outpatient Needs follow up with Orthopedics in 2 weeks Needs Rehab placement social service for discharge planning Urinary Retention: Resolved Continue Bladder scan protocol Continue Flomax Constipation: Resolved Continue bowel regimen H/O autoimmune hepatitis On Imuran Depression: Continue Zoloft H/O HTN: Not on meds hesitant to be started on meds prescribed by PCP per records GERD: continue Protonix H/O CVA: Not on Meds Has chronic dysphagia secondary to CVA Follows with Speech therapy as outpatient H/O nocturnal hypoxia Oxygen QHS DVT Px: Lovenox SQ Code Status: DNR Disposition: Needs rehab placement Vital Signs: Date Time Temp Pulse Resp B/P (MAP) Pulse Ox O2 Delivery O2 Flow Rate FiO2 02/19/18 10:38 36.4 65 16 95 Nasal Cannula 02/19/18 07:45 95 Room Air 02/19/18 07:33 36.4 65 16 128/70 (89) 95 Room Air 02/19/18 06:41 36.6 63 15 119/67 (84) 94 Room Air 02/18/18 23:20 Nasal Cannula 2.0 02/18/18 22:41 36.7 70 16 118/69 (85) 91 Room Air 02/18/18 15:30 Room Air 02/18/18 15:11 36.6 65 16 101/60 (74) 91 02/18/18 15:08 69 Lab Results: Results Past 24 Hours Test 02/19/18 07:33 Range/Units White Blood Count 5.78 4.8-10.8 K/uL Red Blood Count 3.39 4.2-5.4 M/uL Hemoglobin 9.9 12.0-16.0 g/dL Hematocrit 30.5 37-47 % Mean Corpuscular Volume 90.0 80-100 fL Mean Corpuscular Hemoglobin 29.2 25-34 pg Mean Corpuscular Hemoglobin Concent 32.5 32-36 g/dl Platelet Count 205 130-400 K/uL Mean Platelet Volume 9.5 7.4-10.4 fL Neutrophils (%) (Auto) 78.0 % Lymphocytes (%) (Auto) 9.3 % Monocytes (%) (Auto) 8.8 % Eosinophils (%) (Auto) 3.5 % Basophils (%) (Auto) 0.2 % Neutrophils # (Auto) 4.51 1.4-6.5 K/uL Lymphocytes # (Auto) 0.54 1.2-3.4 K/uL Monocytes # (Auto) 0.51 0.11-0.59 K/uL Eosinophils # (Auto) 0.20 0-0.5 K/uL Basophils # (Auto) 0.01 0-0.2 K/uL RDW Standard Deviation 52.8 36.4-46.3 fL RDW Coefficient of Variation 16.1 11.5-14.5 % Immature Granulocyte % (Auto) 0.2 % Immature Granulocyte # (Auto) 0.01 0.00-0.02 K/uL Sodium Level 135 136-145 mmol/L Potassium Level 3.5 3.5-5.1 mmol/L Chloride Level 99 98-107 mmol/L Carbon Dioxide Level 30 21-32 mmol/L Anion Gap 6.0 3-11 mmol/L Blood Urea Nitrogen 11 7-18 mg/dl Creatinine 0.50 0.60-1.20 mg/dl Est Creatinine Clear Calc Drug Dose 72.4 ml/min Estimated GFR () 103.7 Estimated GFR (Non- 89.5 BUN/Creatinine Ratio 21.9 10-20 Random Glucose 86 70-99 mg/dl Calcium Level 8.5 8.5-10.1 mg/dl Magnesium Level 2.1 1.8-2.4 mg/dl
[2018-02-19 15:06] VITALS: BP 113/60; PULSE 71; TEMP 36.8; O2SAT 96
[2018-02-19] MEDS: TRAMADOL HCL 50 MG TAB PO PRN (19:31)
[2018-02-19] MEDS: HYDROmorphone INJ 0.5 MG/0.5 ML SYR IV PRN (20:08)
[2018-02-19 23:19] VITALS: BP 134/74; PULSE 67; TEMP 36.5; O2SAT 98
[2018-02-20 07:23] VITALS: BP 125/73; PULSE 76; TEMP 36.3; O2SAT 96
[2018-02-20 08:10] VITALS: O2SAT 96
[2018-02-20] MEDS: VITAMIN B COMPLEX TAB PO SCH (09:00)
[2018-02-20] MEDS: DOCUSATE SODIUM 100 MG CAP PO SCH (09:00)
[2018-02-20] MEDS: MAGNESIUM OXIDE 400 MG TAB PO SCH (09:00)
[2018-02-20] MEDS: TAMSULOSIN HCL 0.4 MG CAP PO SCH (09:14)
[2018-02-20] MEDS: AZATHIOPRINE 50 MG TAB PO SCH (09:15)
[2018-02-20] MEDS: SERTRALINE HCL 100 MG TAB PO SCH (09:16)
[2018-02-20] MEDS: PANTOprazole SOD 40 MG TAB PO SCH (09:16)
[2018-02-20] MEDS: LIDODERM (LIDOCAINE) PATCH 5% TD SCH (09:17)
[2018-02-20] MEDS: ENOXAPARIN 40 MG/0.4 ML SYR SQ SCH (09:17)
[2018-02-20] MEDS: KETOROLAC TROMETHAMINE 10 MG TAB PO PRN (09:24)
[2018-02-20] MEDS ORDERED: TRAMADOL HCL 50 MG TAB PO ONE (10:45)
--- NOTE | 2018-02-20 10:48 | Progress Note ---
Internal Med Progress Note Date of Service: Feb 20, 2018. Provider Documentation: SUBJECTIVE: Seen and examined at bedside States not using her sling when out of bed today Reports left Upper Extremity pain No other complaints Denies chest pain, SOB, dizziness No other complaints OBJECTIVE: Vital Signs-as noted below Physical Exam: General Appearance:Moderately built and nourished, no apparent distress Head: normocephalic, Atraumatic Eyes: normal inspection, EOMI, PERRL Neck: supple, Trachea midline Respiratory/Chest: Normal breath sounds, CTA Cardiovascular: S1, S2, +murmur Abdomen/GI:Soft, Non tender, Bowel sounds present Extremities/Musculoskelatal:normal inspection, no edema, Left UE decreased ROM 2 /2 pain Neurologic/Psych:AAOX3, grossly no focal neurological deficits Skin: normal color, warm Lab data as noted below. ASSESSMENT & PLAN: Patient is an 83 yr female who presents with fall and sustained left humerus and clavicle fracture S/P Mechanical Fall Impacted Left proximal humerus fracture Displaced distal left clavicle fracture Continue conservative management Appreciate orthopedics Input Pain Control continue with the arm sling as per Orthopedics recommendations Hold off on PT/OT for left UE until seen by Orthopedics as outpatient Needs follow up with Orthopedics in 2 weeks Needs Rehab placement social service for discharge planning Urinary Retention: Resolved Continue Bladder scan protocol Continue Flomax Constipation: Resolved Continue bowel regimen H/O autoimmune hepatitis On Imuran Depression: Continue Zoloft H/O HTN: Not on meds hesitant to be started on meds prescribed by PCP per records GERD: continue Protonix H/O CVA: Not on Meds Has chronic dysphagia secondary to CVA Follows with Speech therapy as outpatient H/O nocturnal hypoxia Oxygen QHS DVT Px: Lovenox SQ Code Status: DNR Disposition: Plan to discharge to [facility] today Follow up with your PCP in 1 week after being discharged from rehab facility Follow up with your Orthopedic Surgeon in 2 weeks. Please call [phone] for appointment Consider following up with Urology as outpatient if have recurrence of Urinary Retention Seek immediate medical attention if your symptoms reoccur or worsen Vital Signs: Date Time Temp Pulse Resp B/P (MAP) Pulse Ox O2 Delivery O2 Flow Rate FiO2 02/20/18 08:10 96 Room Air 02/20/18 07:23 36.3 76 18 125/73 (90) 96 Room Air 02/19/18 23:40 Nasal Cannula 2.0 02/19/18 23:19 36.5 67 16 134/74 (94) 98 Nasal Cannula 2.0 02/19/18 15:30 Room Air 02/19/18 15:06 36.8 71 18 113/60 (77) 96 Room Air
[2018-02-20] MEDS ORDERED: TRD10 PO (10:52)
[2018-02-20] MEDS ORDERED: FLM4 PO (10:52)
[2018-02-20] MEDS ORDERED: LDDP5 TD (10:52)
[2018-02-20] MEDS ORDERED: ULT50 PO (10:52)
[2018-02-20] MEDS ORDERED: MRLP17X PO (10:52)
[2018-02-20] MEDS ORDERED: KLN/5 PO (10:52)
[2018-02-20] MEDS ORDERED: CLC100 PO (10:52)
--- NOTE | 2018-02-20 10:56 | Discharge Summary ---
Discharge Summary Date of Service Feb 20, 2018. Discharge Summary Admission Date: Feb 16, 2018 at 23:02 Discharge Date: Feb 20, 2018 Discharge Disposition: correction facility Principal Diagnosis: Left Humerus and Clavicle Fracture, Fall Procedures: Clavicle X ray: 1. Mildly displaced fracture of the distal diaphysis of the left clavicle. 2. Impacted fracture of the left humeral neck as on prior exam though there is suspected worsened alignment due to rotation of the humeral head. Hip[ X ray: Degenerative and postoperative change. No acute process of the pelvis or left hip. Humerus X ray: 1. Slightly impacted fracture proximal left humeral neck. 2. Fracture distal left clavicle. CT head: No acute intracranial abnormality. Pending Studies/Follow-Up: Follow up with your PCP in 1 week after being discharged from rehab facility Follow up with your Orthopedic Surgeon in 2 weeks. Please call for appointment Consider following up with Urology as outpatient if have recurrence of Urinary Retention Hold off on PT/OT for left UE until seen by Orthopedics as outpatient Use sling as per recommendations from Orthopedics Seek immediate medical attention if your symptoms reoccur or worsen Medication Reconciliation New Medications: Docusate Sodium (Docusate Sodium) 100 Mg Cap 100 MG PO BID PRN for Constipation for 30 Days, #60 CAP Ketorolac Tromethamine (Ketorolac Tromethamine) 10 Mg Tab 10 MG PO Q8H PRN for Pain for 3 Days, #9 TAB Lidocaine (Lidocaine) 1 Patch Tdsy 1 PATCH TD QAM for 30 Days, #30 EA Polyethylene (Miralax) 17 Gm Pow 17 GM PO DAILY PRN for Constipation for 14 Days, #14 EA Tamsulosin HCl (Tamsulosin HCl) 0.4 Mg Cap 0.4 MG PO QAM for 30 Days, #30 CAP Continued Medications: Azathioprine (Azathioprine) 50 Mg Tab 50 MG PO DAILY B-Complex Vitamins (Vitamin B Complex) 1 Tab Tab 1 TAB PO DAILY Clonazepam (Klonopin) 0.5 Mg Tab 0.5 MG PO HS PRN for Sleep for 3 Days, #3 TAB (This prescription has been renewed) Magnesium Oxide (Magnesium Oxide) 400 Mg Cap 400 MG PO DAILY, CAP Ondansetron (Ondansetron HCl) 8 Mg Tab 8 MG PO Q6H PRN for Nausea Pantoprazole (Pantoprazole Sodium) 40 Mg Tab 40 MG PO DAILY Sertraline HCl (Sertraline HCl) 100 Mg Tab 100 MG PO DAILY Tramadol HCl (Tramadol HCl) 50 Mg Tab 50-100 MG PO Q6H PRN for Pain for 3 Days, #10 TAB (This prescription has been renewed) [potassium] () 99 MG PO BID, #20 Admission Information HPI (per Admitting provider): CHIEF COMPLAINT: Status post fall and humerus and clavicle fracture. HISTORY OF PRESENT ILLNESS: This is an 83-year-old female with past medical history significant for GERD, anxiety, autoimmune hepatitis, depression, Schatzki ring nocturnal hypoxemia, oropharyngeal dysphagia, presents with fall. The patient lives alone with her puppy. She was heating her cup of milk in her microwave. When the microscope blown out and to escape it she quickly turned and she slipped and fell on her head and she could not get up, was in a lot of pain. The tenant downstairs heard the fall and came up and ambulance brought her here. The imaging studies showed distal left proximal humerus fracture and left clavicle fracture. Required a lot of pain medications. Currently, pain is better control. Hemodynamically stable. Denies any loss of consciousness. Denies any headaches, no dizziness, no blurred visions, very hard to hear. No earaches, no runny nose, no sore throat. No difficulty swallowing. No fever, no chills, or shortness of breath. Pain in her arm radiates to chest.No cough, no nausea, no vomiting, no abdominal pain. Normal bowel and bladder movements. No blood in the urine or blood in the stools. Ambulates with help of a cane, uses 2.5 L of oxygen while sleeping. Physical Exam (per Admitting): PHYSICAL EXAMINATION: GENERAL: The patient is old and frail, not in distress. VITAL SIGNS: Temperature 36.4, pulse 83, respiratory rate 20, blood pressure 175/80, oxygen 96% on 2 L. HEENT: No pallor, no icterus. Pupils equal, round, and reactive. NECK: No JVD or neck masses, no carotid bruits. CARDIOVASCULAR: S1, S2 heard, regular rate and rhythm, no murmur, no gallop. RESPIRATORY SYSTEM: Normal AP diameter. No cyanosis. No wheezing, no crackles. ABDOMEN: Soft, bowel sounds present. Nontender. No distention. CENTRAL NERVOUS SYSTEM: Cranial nerves II-XII grossly nonfocal. EXTREMITIES: Left shoulder and arm in a sling. No edema, no erythema seen. Hospital Course Patient is an 83 yr female who presents with fall and sustained left humerus and clavicle fracture S/P Mechanical Fall Impacted Left proximal humerus fracture Displaced distal left clavicle fracture Continue conservative management Appreciate orthopedics Input Pain Control continue with the arm sling as per Orthopedics recommendations Hold off on PT/OT for left UE until seen by Orthopedics as outpatient Needs follow up with Orthopedics in 2 weeks Needs Rehab placement social service for discharge planning Urinary Retention: Resolved Continue Bladder scan protocol Continue Flomax Constipation: Resolved Continue bowel regimen H/O autoimmune hepatitis On Imuran Depression: Continue Zoloft H/O HTN: Not on meds hesitant to be started on meds prescribed by PCP per records GERD: continue Protonix H/O CVA: Not on Meds Has 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 Please call [phone] for appointment Consider following up with Urology as outpatient if have recurrence of Urinary Retention Seek immediate medical attention if your symptoms reoccur or worsen Total time spent on discharge = This includes examination of the patient, discharge planning, medication reconciliation, and communication with other providers. Discharge Instructions Discharge Instructions Date of Service Feb 20, 2018. Admission Reason for Admission: Fall, Left Humeral Fracture Discharge Discharge Diagnosis / Problem: Left Humerus and Clavicle Fracture, Fall Discharge Goals Goal(s): Decrease discomfort, Improve function Activity Recommendations Activity Limitations: per Instructions/Follow-up section Lifting Limitations: gradually increase as tolerated Exercise/Sports Limitations: gradually increase as tolerated . Instructions / Follow-Up Instructions / Follow-Up Follow up with your PCP in 1 week after being discharged from rehab facility Follow up with your Orthopedic Surgeon in 2 weeks. Please call [phone] for appointment Consider following up with Urology as outpatient if have recurrence of Urinary Retention Hold off on PT/OT for left UE until seen by Orthopedics as outpatient Use sling as per recommendations from Orthopedics Seek immediate medical attention if your symptoms reoccur or worsen Current Hospital Diet Patient's current hospital diet: AHA Diet (Heart Healthy) Discharge Diet Recommended Diet: AHA Diet (Heart Healthy) Pending Studies Studies pending at discharge: no Medical Emergencies . Who to Call and When: Medical Emergencies: If at any time you feel your situation is an emergency, please call 911 immediately. . Non-Emergent Contact Non-Emergency issues call your: Primary Care Provider, Surgeon Call Non-Emergent contact if: you have a fever, your pain is not controlled, your pain is worsening, your pain is unusual for you, your pain is concerning you, you have any medication questions . . "Provider Documentation" section prepared by Petros Villalpando. . <Electronically signed by Petros Villalpando MD> Signed: 02/20/18 1055 Signed: The status of this report is Signed * If report status is Draft, the document has not been finalized by the responsible provider.
== END 2018-02-20 11:58 ==
LOC: EDBD 18:46 → C.EDA 18:47 → C.MSW 23:02 → EDBEDREQ 23:03 → ENRESERV 23:11
PROVIDERS: ADMIT Internal Medicine; ATTEND Internal Medicine
DX: S42.292A Other displaced fracture of upper end of left humerus, initial encounter for closed fracture (principal); S42.002A Fracture of unspecified part of left clavicle, initial encounter for closed fracture; K21.9 Gastro-esophageal reflux disease without esophagitis; F41.9 Anxiety disorder, unspecified; K75.4 Autoimmune hepatitis; I10 Essential (primary) hypertension; S70.02XA Contusion of left hip, initial encounter; S09.90XA Unspecified injury of head, initial encounter; W01.0XXA Fall on same level from slipping, tripping and stumbling without subsequent striking against object, initial encounter; Z79.899 Other long term (current) drug therapy; Z88.5 Allergy status to narcotic agent; Z88.1 Allergy status to other antibiotic agents; Z88.8 Allergy status to other drugs, medicaments and biological substances; Z91.013 Allergy to seafood; Z87.891 Personal history of nicotine dependence; Z86.73 Personal history of transient ischemic attack (TIA), and cerebral infarction without residual deficits

== ENCOUNTER 2021-10-29 20:09 | Observation (INO) ==
[2021-10-29] MEDS ORDERED: fentaNYL citrate 100 MCG/2 ML VIAL IV STA ×2 (20:25→21:42)
--- NOTE | 2021-10-29 20:32 | Emergency Department Note ---
Impression & Plan Fall, Left ankle sprain, Right-sided chest wall pain, Right sided abdominal pain ED Provider Note Provider: Hema Plascencia MD DATE OF SERVICE: 10/29/2021 CHIEF COMPLAINT: Fall HISTORY OF PRESENT ILLNESS: Patient is a 86-year-old female past medical history including GERD/peptic ulcer disease, CVA, & hip pain present here via ambulance after a fall. Evidently around noon she was at home doing some cleaning and was leaning on a small end table polishing as she describes it. She states that this fell over and she fell onto her right side striking her right chest wall and possibly striking her head. Denies loss of conscious states she was able to get up and continue cleaning. After this shortly however she began to experience worsening pain in the right lower chest wall right upper abdomen as well as pain significantly in the left ankle. Is unable to walk since that time although again was able to ambulate and finish her cleaning initially. Patient denies significant headache or dizziness at time. She reports some chronic neck pain but nothing change. Reports she does feel little bit "winded ". She denies nausea or vomiting. Denies injury to the upper extremities with the right leg. States her toes on the left are may be just a little bit tingly. Denies injury to the left knee. Patient denies the use of any blood thinners or antiplatelets. REVIEW OF SYSTEMS: A total of 10 review of systems was obtained and negative except as stated above in the HPI. PAST MEDICAL HISTORY: As noted above MEDICATIONS: Reviewed home medication list things SOCIAL HISTORY: Lives by herself currently. PHYSICAL EXAM: GENERAL: alert and oriented in no acute distress on stretcher somewhat hard of hearing. [id number] at bedside. Head: normocephalic with a very small 3 mm x 8 mm red sonya on the left upper forehead. No contusion or abrasion here. EYES: No injection, discharge or icterus. PERRL, EOMI. NECK: Trachea midline. Supple without significant midline posterior tenderness. ENT: Mucous membranes pink and moist. LUNGS: Airway patent. No retractions. Breath sounds clear with good air entry bilaterally. HEART: Regular rate and rhythm. Some right chest wall tenderness without bruising or crepitus. ABDOMEN: Soft with some mild to moderate right-sided mainly right upper abdominal tenderness. SKIN: Acyanotic, warm, dry, without rashes EXTREMITIES: Without swelling, tenderness or deformity except for some swelling and diffuse tenderness around the left ankle. No tenderness of the mid to proximal left tib-fib or surrounding the left knee or hip. No obvious wounds. NEUROLOGICAL: No aphasia. No facial droop or slurred speech. Normal strength and tone in the extremities except limitations of strength and movement in the left ankle due to pain in this region. Feels gross sensation in all 4 extremities including the left foot and toes to touch. Patient's imaging reviewed. Patient's blood work reviewed. Differential includes Fracture, dislocation, contusion, intra-abdominal, pneumothorax, intrathoracic, intracranial, neurologic, compartment syndrome, rhabdomyolysis, as well as other pathologies. 3 view left ankle x-ray without evidence of acute fracture or dislocation per my interpretation. 3 view left foot x-ray without evidence of acute fracture or dislocation per my interpretation. IMPRESSION/MEDICAL DECISION MAKING: This is a mechanical type fall. Was able to get up and continue cleaning for a while before she had significant left ankle pain. Lower suspicion for fracture here but there is some swelling. X-ray to be obtained. Given her small strike to the head as well as some pain in the right lower chest and right upper abdomen CT scans were completed. Given her IV contrast allergy without contrast. Given additional fentanyl for pain control. Patient denies palpitations, dizziness, or nausea. Low suspicion this represents ACS given the traumatic mechanism and provokable pain with touch of the right chest and upper abdomen. Basic blood work ordered. My review the x-rays without evidence of obvious fracture. Will place an ankle gel splint as likely this is a sprain. Given some additional sent for pain control. Is having some slight flare of her restless leg syndrome. CT of the chest and abdomen pelvis without significant traumatic injury with an incidental infrarenal abdominal aortic aneurysm and some faint groundglass opacities in the right lung base. Patient not hypoxic. Not having febrile symptoms. Blood work returns without significant leukocytosis with stable mild anemia. Discussed w ith patient and daughter findings. Gel splint placed on the left ankle. Again no evidence of vascular significant neurological compromise at this time. No evidence of dislocation. Doubt any fracture based on my review of the x-rays. Patient however is unable to bear weight on it and in significant pain. Several doses fentanyl including 1 prior to arrival. Given this and the fact she lives alone and given her age not able to tolerate crutches, patient did not feel comfortable going home. May need rehab placement. [id number] agrees. DIAGNOSIS: Fall, right chest/abdominal pain, left ankle sprain DISPOSITION: Hospitalist will evaluate Patient was agreeable with this plan. 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 DATE OF DX - LONG TIME AGO PER PT ; PT UNSURE DETAILS - NO BLOOD THINNER Stroke 2011; RESIDUAL BALANCE/HEARING ISSUES; PARTIAL EPIGLOTTIS "PARALYSIS" SVT (supraventricular tachycardia) PT UNSURE Valvular heart disease MILD MR/MODERATE TR PT UNSURE Surgical History Fusion of spine LUMBAR X2 H/O elbow replacement RIGHT H/O neck surgery "plate in back of my neck"--normal ROM moving neck front and back History of appendectomy History of cataract surgery BILATERAL History of cholecystectomy History of colonoscopy History of esophagogastroduodenoscopy (EGD) most recent 03/22/21 [place] History of hysterectomy CARRI WITH BSO History of surgery 07/2018--removal of spinal cord stimulator History of tonsillectomy and adenoidectomy History of total hip arthroplasty B/L Status post insertion of spinal cord stimulator HX Family History Mother Family history of diabetes mellitus Sister Family history of diabetes mellitus Daughter Cancer COLON/LYMPHOMA Other No family history of adverse response to anesthesia Social History Smoking Status: Former smoker Second Hand Exposure: No; Hx Alcohol Use: Yes Alcohol type: wine Preferred Language: Lithuanian Communication Ability: Effective 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 Helper Required: No Beliefs That Will Affect Care: None Current Living Situation: Alone Feels Safe at Home: Yes Assistive Devices: Cane, Denture - Upper, Glasses, Hearing Aid - Bilateral and Oxygen - at Night Allergies Allergies Allergy/AdvReac Type Severity Reaction Status Date / Time Corticosteroids Allergy Intermediate STERIOD Verified 10/08/21 08:25 (Glucocorticoids) INJECTIONS - FLUSHING AND BLOTCHING REDNESS, ITCHY acetaminophen [From Percocet] Allergy Mild ITCHY Verified 10/08/21 08:25 ARMS/SHOULDERS, GROGGY chlorhexidine Allergy Mild RASH Verified 10/08/21 08:25 Iodinated Contrast Media Allergy Mild Rash/Hives Verified 10/08/21 08:25 morphine Allergy Mild RASH Verified 10/08/21 08:25 oxycodone Allergy Mild PERCOCET - Verified 10/08/21 08:25 ITCHING OF ARMS,SHOULDERS,GROGGY dipyridamole Allergy Unknown reaction Verified 10/08/21 08:25 unknown duloxetine AdvReac Intermediate SEDATION & Verified 10/08/21 08:25 BAD DREAMS codeine AdvReac Mild GI UPSET Verified 10/08/21 08:25 mepivacaine AdvReac Unknown pt states Verified 10/08/21 08:25 "just didnt work" Home Meds Home Medications Medication Instructions Recorded Confirmed azathioprine 50 mg tablet (Imuran) 50 mg PO QAM 07/29/18 10/10/21 magnesium oxide 400 mg PO QAM 07/29/18 10/10/21 pantoprazole 40 mg tablet,delayed 40 mg PO QAM 07/29/18 10/10/21 release sertraline 100 mg tablet 200 mg PO QAM 07/29/18 10/10/21 cholecalciferol (vitamin D3) 25 4,000 unit PO QAM 05/11/19 10/10/21 mcg (1,000 unit) capsule (Vitamin D3) cyanocobalamin (vitamin B-12) 1,000 mcg PO QAM 11/06/19 10/10/21 1,000 mcg tablet (Vitamin B-12) docusate sodium 100 mg capsule 100 mg PO HS PRN 11/06/19 10/10/21 (Colace) acetaminophen 500 mg tablet 1,000 mg PO HS PRN 02/28/20 10/10/21 (Acetaminophen Extra Strength) hydrocodone 5 mg-acetaminophen 325 1 tab PO Q8H PRN 03/18/21 10/10/21 mg tablet melatonin 10 mg tablet 10 mg PO HS PRN 10/08/21 10/10/21 Results & Data (ED) Vital Signs Vital Signs - 24 hr 10/29/21 20:04 10/29/21 20:27 Temperature 36.4 C L Temperature Source Oral Pulse Rate 71 Respiratory Rate 16 Respiratory Depth Normal Blood Pressure 145/64 H Blood Pressure Mean 91 Pulse Oximetry 100 100 Oxygen Delivery Method Room Air Room Air Sepsis Recent Fever Within 48 Hours No Sepsis New/Unexplained Change in Mental Status No Sepsis Action Taken by Nursing No Action Required Laboratory Data Result diagrams: 10/29/21 Unknown 10/29/21 Unknown Lab Results 10/29/21 10/29/21 Range/Units Unknown Unknown WBC 8.38 (4.8-10.8) K/uL RBC 3.41 L (4.2-5.4) M/uL Hgb 11.0 L (12.0-16.0) g/dL Hct 32.8 L (37-47) % MCV 96.2 (80-100) fL MCH 32.3 (25-34) pg MCHC 33.5 (32-36) g/dL RDW Std Deviation 50.9 H (36.4-46.3) fL RDW Coeff of Gale 14.4 (11.5-14.5) % Plt Count 216 (130-400) K/uL MPV 9.9 (7.4-10.4) fL Immature Gran % (Auto) 0.2 % Neut % (Auto) 72.7 % Lymph % (Auto) 15.5 % [place] % (Auto) 10.0 % Eos % (Auto) 1.2 % Baso % (Auto) 0.4 % Neut # (Auto) 6.09 (1.4-6.5) K/uL Lymph # (Auto) 1.30 (1.2-3.4) K/uL [place] # (Auto) 0.84 H (0.11-0.59) K/uL Eos # (Auto) 0.10 (0-0.5) K/uL Baso # (Auto) 0.03 (0-0.2) K/uL Immature Gran # (Auto) 0.02 (0.00-0.02) K/uL Sodium 137 (136-145) mmol/L Potassium 3.9 (3.5-5.1) mmol/L Chloride 104 (98-107) mmol/L Carbon Dioxide 25 (21-32) mmol/L Anion Gap 8 (3-11) BUN 23 (6-23) mg/dl Creatinine 1.07 (0.6-1.2) mg/dl Est Cr Clr Drug Dosing 31.7 ml/min Est GFR ( Amer) 54.4 ml/min Est GFR (Non-Af Amer) 47.0 ml/min BUN/Creatinine Ratio 21.5 H (10-20) Glucose 106 H (70-99(Fasting)) mg/dl Calcium 9.8 (8.5-10.1) mg/dl Total Bilirubin 0.4 (0.2-1.0) mg/dl AST 18 (13-39) U/L ALT 6 L (7-52) U/L Alkaline Phosphatase 73 (34-104) U/L Total Protein 7.0 (6.0-8.3) gm/dl Albumin 4.0 (3.4-5.0) gm/dl Globulin 3.0 (2.5-4.0) gm/dl Albumin/Globulin Ratio 1.3 (0.9-2) Administered Medications Discontinued Medications Fentanyl Citrate (Fentanyl Citrate 100 Mcg/2 Ml Vial) 75 mcg IV NOW STA Stop: 10/29/21 20:26 Last Admin: 10/29/21 20:42 Dose: 75 mcg Documented by: [id number] Imaging Data Radiologist's Impression: Abdomen/Pelvis CT 10/29/21 20:25 CT chest diagnostic wo con, CT abd pelvis wo con CT DOSE: HISTORY: fall, right rib pain TECHNIQUE: Multiaxial CT images of the chest, abdomen, and pelvis were performed without contrast. A dose lowering technique was utilized adhering to the principles of ALARA. COMPARISON: Chest CTA 10/03/2017. Abdomen and pelvis CT 09/21/2016. FINDINGS: Chest CT: There are old, healed right anterior second and sixth rib fractures. No acute fractures identified within the chest. Cervical spinal fusion hardware is partially visualized. A spinal stimulator lead is noted. No pneumothorax. Biapical nodular densities remain stable and favor scarring. Mild interstitial thickening at the lung bases which is likely chronic. Delayed There are few scattered subcentimeter calcified and noncalcified pulmonary nodules. Faint groundglass densities within the base of the right middle lobe and right lower lobe which may represent mild inflammatory/infectious change. Normal esophagus. No pericardial effusion. The heart is normal in size. Stable ectatic aortic arch. No mediastinal hematoma or lymphadenopathy. No hilar lymphadenopathy. Abdomen/pelvis CT: No pneumoperitoneum. No pneumatosis. Posterior decompression within the lumbar spine. No acute fractures within the visualized osseous structures. Calcifications within the anterior abdominal wall consistent with postoperative change. There are bilateral total hip arthroplasties. This results in metallic artifact within the pelvis. Suboptimal evaluation of the deep pelvic structures including the bladder. However, the bladder appears unremarkable. No definite pelvic free fluid. Multiple duodenal diverticula. The gallbladder are surgically absent. This likely accounts for the bile duct dilatation. The unenhanced liver, spleen, adrenal glands, pancreas, and kidneys are unremarkable. No hydronephrosis. No retroperitoneal lymphadenopathy. There is a 3.2 cm infrarenal abdominal aortic aneurysm. Colonic diverticulosis. No evidence for acute diverticulitis. There is suboptimal evaluation for bowel pathology due to the lack of intravenous and oral contrast. However, there is no definite bowel wall thickening or obstruction. IMPRESSION: 1. No acute traumatic process within the chest, abdomen, or pelvis. 2. Faint patchy groundglass densities within the right lung base. This may represent mild inflammatory/infectious change. 3. A 3.2 cm infrarenal abdominal aortic aneurysm. 4. Additional findings as described above. ACT 112: Negative or not required by law. Electronically signed by: Alvaro De La Cruz M.D. 10/29/2021 9:[address] 10/29/21 20:[address] DOSE: 1461.71 mGy.cm HISTORY: fall TECHNIQUE: Multiaxial CT images of the cervical spine were performed and refo rmatted in the sagittal and coronal plane without the use of contrast. A dose lowering technique was utilized adhering to the principles of ALARA. COMPARISON: None. FINDINGS: No fractures. C4-C7 ACDF. The hardware appears intact. There is 3 mm of anterolisthesis of C3 on C4. This is likely chronic. Prevertebral soft tissues and the C1-C2 interval are intact. No pneumothorax. IMPRESSION: No fractures within the cervical spine. ACT 112: Negative or not required by law. Electronically signed by: Alvaro De La Cruz M.D. 10/29/2021 9:[address] 10/29/21 20:25 CT chest diagnostic wo con, CT abd pelvis wo con CT DOSE: HISTORY: fall, right rib pain TECHNIQUE: Multiaxial CT images of the chest, abdomen, and pelvis were performed without contrast. A dose lowering technique was utilized adhering to the principles of ALARA. COMPARISON: Chest CTA 10/03/2017. Abdomen and pelvis CT 09/21/2016. FINDINGS: Chest CT: There are old, healed right anterior second and sixth rib fractures. No acute fractures identified within the chest. Cervical spinal fusion hardware is partially visualized. A spinal stimulator lead is noted. No pneumothorax. Biapical nodular densities remain stable and favor scarring. Mild interstitial thickening at the lung bases which is likely chronic. Delayed There are few scattered subcentimeter calcified and noncalcified pulmonary nodules. Faint groundglass densities within the base of the right middle lobe and right lower lobe which may represent mild inflammatory/infectious change. Normal esophagus. No pericardial effusion. The heart is normal in size. Stable ectatic aortic arch. No mediastinal hematoma or lymphadenopathy. No hilar lymphadenopathy. Abdomen/pelvis CT: No pneumoperitoneum. No pneumatosis. Posterior decompression within the lumbar spine. No acute fractures within the visualized osseous structures. Calcifications within the anterior abdominal wall consistent with postoperative change. There are bilateral total hip arthroplasties. This results in metallic artifact within the pelvis. Suboptimal evaluation of the deep pelvic structures including the bladder. However, the bladder appears unremarkable. No definite pelvic free fluid. Multiple duodenal diverticula. The gallbladder are surgically absent. This likely accounts for the bile duct dilatation. The unenhanced liver, spleen, adrenal glands, pancreas, and kidneys are unremarkable. No hydronephrosis. No retroperitoneal lymphadenopathy. There is a 3.2 cm infrarenal abdominal aortic aneurysm. Colonic diverticulosis. No evidence for acute diverticulitis. There is suboptimal evaluation for bowel pathology due to the lack of intravenous and oral contrast. However, there is no definite bowel wall thickening or obstruction. IMPRESSION: 1. No acute traumatic process within the chest, abdomen, or pelvis. 2. Faint patchy groundglass densities within the right lung base. This may represent mild inflammatory/infectious change. 3. A 3.2 cm infrarenal abdominal aortic aneurysm. 4. Additional findings as described above. ACT 112: Negative or not required by law. Electronically signed by: Alvaro De La Cruz M.D. 10/29/2021 9:[address] 10/29/21 20:[address] DOSE: HISTORY: fall TECHNIQUE: Multiaxial CT images of the head were performed without the use of intravenous contrast. Automated exposure control was utilized for this study. A dose lowering technique was utilized adhering to the principles of ALARA. Comparison: Head CT 11/08/2020. Findings: The paranasal sinuses and mastoid air cells are clear. The calvarium and skull base are intact. The ventricles and sulci are within normal limits. There is no mass, hematoma, midline shift, or acute infarct. Impression: No acute intracranial abnormality. ACT 112: Negative or not required by law. Electronically signed by: Alvaro De La Cruz M.D. 10/29/2021 9:24 PM Discharge Plan Visit Data Chief Complaint: Fall ED Provider: Hema Plascencia Discharge Problem: Fall, Left ankle sprain, Right-sided chest wall pain, Right sided abdominal pain Patient Disposition: Being Evaluated by Hospitalist Forms Stand Alone Forms: [facility] Scan Prescriptions Prescriptions: No Action sertraline 100 mg Tablet 200 mg PO QAM RF: 0 azathioprine [Imuran] 50 mg Tablet 50 mg PO QAM RF: 0 pantoprazole 40 mg Tablet,Delayed Release (Dr/Ec) 40 mg PO QAM RF: 0 magnesium oxide 400 mg Capsule 400 mg PO QAM RF: 0 cholecalciferol (vitamin D3) [Vitamin D3] 1,000 unit Capsule 4,000 unit PO QAM RF: 0 cyanocobalamin (vitamin B-12) [Vitamin B-12] 1,000 mcg Tablet 1,000 mcg PO QAM RF: 0 docusate sodium [Colace] 100 mg capsule 100 mg PO HS PRN (Reason: Constipation) RF: 0 acetaminophen [Acetaminophen Extra Strength] 500 mg Tablet 1,000 mg PO HS PRN (Reason: Pain) RF: 0 hydrocodone-acetaminophen 5-325 mg Tablet 1 tab PO Q8H PRN (Reason: Pain) RF: 0 melatonin 10 mg Tablet 10 mg PO HS PRN (Reason: Sleep) RF: 0 Referrals Referrals: Manish Roblero DO [Primary Care Provider] - Discharge Problem: Fall Qualifiers: Encounter type: initial encounter Qualified Code(s): W19.XXXA - Unspecified fall, initial encounter Left ankle sprain Qualifiers: Encounter type: initial encounter Involved ligament of ankle: unspecified ligament Qualified Code(s): S93.402A - Sprain of unspecified ligament of left ankle, initial encounter
--- NOTE | 2021-10-29 21:27 | CT Scan Report ---
HEAD CT NONCONTRAST CT DOSE: HISTORY: fall TECHNIQUE: Multiaxial CT images of the head were performed without the use of intravenous contrast. A utomated exposure control was utilized for this study. A dose lowering technique was utilized adheri ng to the principles of ALARA. Comparison: Head CT 11/08/2020. Findings: The paranasal sinuses and mastoid air cells are clear. The calvarium and skull base are int act. The ventricles and sulci are within normal limits. There is no mass, hematoma, midline shift, or acute infarct. Impression: No acute intracranial abnormality. ACT 112: Negative or not required by law. Electronically signed by: Alvaro De La Cruz M.D. 10/29/2021 9:24 PM
--- NOTE | 2021-10-29 21:31 | CT Scan Report ---
CERVICAL SPINE CT CT DOSE: 1461.71 mGy.cm HISTORY: fall TECHNIQUE: Multiaxial CT images of the cervical spine were performed and reformatted in the sagittal and coronal plane without the use of contrast. A dose lowering technique was utilized adhering to th e principles of ALARA. COMPARISON: None. FINDINGS: No fractures. C4-C7 ACDF. The hardware appears intact. There is 3 mm of anterolisthesis of C3 on C4. This is likely chronic. Prevertebral soft tissues and the C1-C2 interval are intact. No pne umothorax. IMPRESSION: No fractures within the cervical spine. ACT 112: Negative or not required by law. Electronically signed by: Alvaro De La Cruz M.D. 10/29/2021 9:28 PM
[2021-10-29 21:36] LABS: Basophils # (auto) 0.03 K/uL (0-0.2); Basophils % (auto) 0.4 %; Eosinophils % (auto) 1.2 %; Hematocrit (blood only) 32.8 % (37-47); Immature Granulocytes # (auto) 0.02 K/uL (0.00-0.02); Immature Granulocytes % (auto) 0.2 %; Lymphocytes % (auto) 15.5 %; Mean Corpuscular Hemoglobin 32.3 pg (25-34); Mean Corpuscular Hgb Conc 33.5 g/dL (32-36); Mean Corpuscular Volume 96.2 fL (80-100); Mean Platelet Volume 9.9 fL (7.4-10.4); Monocytes # (auto) 0.84 K/uL (0.11-0.59); Neutrophils # (auto) 6.09 K/uL (1.4-6.5); Neutrophils % (auto) 72.7 %; Platelet Count 216 K/uL (130-400); RDW Coefficient of Variation 14.4 % (11.5-14.5); RDW Standard Deviation 50.9 fL (36.4-46.3); Red Blood Count 3.41 M/uL (4.2-5.4); White Blood Count 8.38 K/uL (4.8-10.8)
--- NOTE | 2021-10-29 21:45 | CT Scan Report ---
CT chest diagnostic wo con, CT abd pelvis wo con CT DOSE: HISTORY: fall, right rib pain TECHNIQUE: Multiaxial CT images of the chest, abdomen, and pelvis were performed without contrast. A dose lowering technique was utilized adhering to the principles of ALARA. COMPARISON: Chest CTA 10/03/2017. Abdomen and pelvis CT 09/21/2016. FINDINGS: Chest CT: There are old, healed right anterior second and sixth rib fractures. No acute fractures jeanine ntified within the chest. Cervical spinal fusion hardware is partially visualized. A spinal stimulato r lead is noted. No pneumothorax. Biapical nodular densities remain stable and favor scarring. Mild i nterstitial thickening at the lung bases which is likely chronic. Delayed There are few scattered sub centimeter calcified and noncalcified pulmonary nodules. Faint groundglass densities within the base of the right middle lobe and right lower lobe which may represent mild inflammatory/infectious change . Normal esophagus. No pericardial effusion. The heart is normal in size. Stable ectatic aortic arch. No mediastinal hematoma or lymphadenopathy. No hilar lymphadenopathy. Abdomen/pelvis CT: No pneumoperitoneum. No pneumatosis. Posterior decompression within the lumbar spi ne. No acute fractures within the visualized osseous structures. Calcifications within the anterior a bdominal wall consistent with postoperative change. There are bilateral total hip arthroplasties. Thi s results in metallic artifact within the pelvis. Suboptimal evaluation of the deep pelvic structures including the bladder. However, the bladder appears unremarkable. No definite pelvic free fluid. Mul tiple duodenal diverticula. The gallbladder are surgically absent. This likely accounts for the bile duct dilatation. The unenhanced liver, spleen, adrenal glands, pancreas, and kidneys are unremarkable . No hydronephrosis. No retroperitoneal lymphadenopathy. There is a 3.2 cm infrarenal abdominal aorti c aneurysm. Colonic diverticulosis. No evidence for acute diverticulitis. There is suboptimal evaluat ion for bowel pathology due to the lack of intravenous and oral contrast. However, there is no defini te bowel wall thickening or obstruction. IMPRESSION: 1. No acute traumatic process within the chest, abdomen, or pelvis. 2. Faint patchy groundglass densities within the right lung base. This may represent mild inflammator y/infectious change. 3. A 3.2 cm infrarenal abdominal aortic aneurysm. 4. Additional findings as described above. ACT 112: Negative or not required by law. Electronically signed by: Alvaro De La Cruz M.D. 10/29/2021 9:43 PM
[2021-10-29 21:55] LABS: Albumin Globulin Ratio 1.3 (0.9-2); BUN Creatinine Ratio 21.5 (10-20); Bilirubin,Total 0.4 mg/dl (0.2-1.0); Calcium 9.8 mg/dl (8.5-10.1); Creatinine Clr Calc Pharmacy 31.7 ml/min; Est GFR (African American) 54.4 ml/min; Potassium 3.9 mmol/L (3.5-5.1)
--- NOTE | 2021-10-29 22:23 | History & Physical Report ---
Date of Service October 29, 2021 Assessment & Plan (1) Fall: Plan: Possible syncopal event Patient unsure if she passed out. 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 Heparin subcu DNR Patient requests for her son to be updated of her progress. Mr. King Wyatt (contact #[phone]) Text document was generated using [employer] voice recognition software. It may contain grammatical or spelling errors. Kindly contact undersigned for clarification of any documentation item in question. History of Present Illness Chief Complaint: Fall, right-sided chest pain, left ankle pain Primary Care Provider: Manish Roblero DO History obtained from patient and records. Medical history significant for PSVT/PAF, AAA, hypertension not on meds, hyperlipidemia, history of CVA as per records, autoimmune hepatitis on Imuran, hx Schatzki's ring/aspiration risk, mood disorder, chronic anemia (baseline hemoglobin of 11), past tobacco abuse. Last confinement February 2018 for left clavicle/left humeral fracture secondary to mechanical fall. Conservative management for fracture. Patient discharged to rehab. Patient was doing some polishing at her home today when she fell down striking the right side of her chest and possibly her head. Patient not sure if she passed out before episode because she "never knows when I'm falling down". Achy chest pain and left ankle pain after the fall. No shortness of breath. No cough symptoms. Patient had trouble getting u patient brought to the ER for evaluation. MEDICAL HISTORY: As above. SURGERIES: Eye surgery, neck surgery, elbow surgery, hernia repair, cataract surgery, prior bladder tuck/vaginal defect repair, cholecystectomy, radial head removal, hysterectomy. FAMILY HISTORY: Breast cancer, heart disease, COPD. PERSONAL SOCIAL HISTORY: Past tobacco use. Occasional EtOH intake, retired [employer]. Lives by self. Allergies Allergy/AdvReac Type Severity Reaction Status Date / Time Corticosteroids Allergy Intermediate STERIOD Verified 10/29/21 22:30 (Glucocorticoids) INJECTIONS - FLUSHING AND BLOTCHING REDNESS, ITCHY acetaminophen [From Percocet] Allergy Mild ITCHY Verified 10/29/21 22:30 ARMS/SHOULDERS, GROGGY chlorhexidine Allergy Mild RASH Verified 10/29/21 22:30 Iodinated Contrast Media Allergy Mild Rash/Hives Verified 10/29/21 22:30 morphine Allergy Mild RASH Verified 10/29/21 22:30 oxycodone Allergy Mild PERCOCET - Verified 10/29/21 22:30 ITCHING OF ARMS,SHOULDERS,GROGGY dipyridamole Allergy Unknown reaction Verified 10/29/21 22:30 unknown duloxetine AdvReac Intermediate SEDATION & Verified 10/29/21 22:30 BAD DREAMS codeine AdvReac Mild GI UPSET Verified 10/29/21 22:30 mepivacaine AdvReac Unknown pt states Verified 10/29/21 22:30 "just didnt work" Home Medications Medication Instructions Recorded Confirmed Type azathioprine 50 mg tablet (Imuran) 50 mg PO QAM 07/29/18 10/29/21 History pantoprazole 40 mg tablet,delayed 40 mg PO QAM 07/29/18 10/29/21 History release sertraline 100 mg tablet 200 mg PO QAM 07/29/18 10/29/21 History cholecalciferol (vitamin D3) 25 4,000 unit PO QAM 05/11/19 10/29/21 History mcg (1,000 unit) capsule (Vitamin D3) cyanocobalamin (vitamin B-12) 1,000 mcg PO QAM 11/06/19 10/29/21 History 1,000 mcg tablet (Vitamin B-12) acetaminophen 500 mg tablet 1,000 mg PO Q8H PRN 02/28/20 10/29/21 History (Acetaminophen Extra Strength) Past Med/Surg History Medical History (Updated 10/29/21 @ 22:11 by Hema Plascencia M.D.) Anemia CHRONIC Anxiety Autoimmune hepatitis "MEDICATION INDUCED"= ON IMURAN Depression Encounter for pre-operative examination GERD (gastroesophageal reflux disease) Hiatal hernia Hip pain PT REPORTS STIMULATOR HAS BEEN REMOVED History of anesthesia reaction difficulty waking History of esophageal dilatation MULTIPLE 2/2 SCHATZKI RING Nocturnal hypoxemia 2L O2 HS PER PT Osteoarthritis Paroxysmal atrial fibrillation ? DATE OF DX - LONG TIME AGO PER PT ; PT UNSURE DETAILS - NO BLOOD THINNER Stroke 2011; RESIDUAL BALANCE/HEARING ISSUES; PARTIAL EPIGLOTTIS "PARALYSIS" SVT (supraventricular tachycardia) PT UNSURE Valvular heart disease MILD MR/MODERATE TR PT UNSURE Surgical History Fusion of spine LUMBAR X2 H/O elbow replacement RIGHT H/O neck surgery "plate in back of my neck"--normal ROM moving neck front and back History of appendectomy History of cataract surgery BILATERAL History of cholecystectomy History of colonoscopy History of esophagogastroduodenoscopy (EGD) most recent 03/22/21 [place] History of hysterectomy CARRI WITH BSO History of surgery 07/2018--removal of spinal cord stimulator History of tonsillectomy and adenoidectomy History of total hip arthroplasty B/L Status post insertion of spinal cord stimulator HX Family History Mother Family history of diabetes mellitus Sister Family history of diabetes mellitus Daughter Cancer COLON/LYMPHOMA Other No family history of adverse response to anesthesia Social History Smoking Status: Former smoker Second Hand Exposure: No; Hx Alcohol Use: Yes Alcohol type: wine Hx Substance Use: No Preferred Language: Japanese Communication Ability: Effective Rail Bender Required: No Beliefs That Will Affect Care: None Current Living Situation: Alone Current Living Situation Comment: home alone Other Information That Helps Us Care for You: No Feels Safe at Home: Yes Safety Concerns: Feels Safe At This Time Assistive Devices: Cane, Denture - Upper, Glasses and Hearing Aid - Bilateral Review of Systems Review of Systems: As per HPI, all 10 systems reviewed, all other ROS negative Physical Exam Physical Exam: GENERAL: Slightly uncomfortable, underweight, dysarthric (chronic), no respiratory distress SKIN: Normal color, warm HEENT: Bespectacled, [place] palpebral conjunctivae, no ptosis, dry buccal mucosa NECK : Supple, no tenderness CHEST : Decreased breath sounds, right anterior chest wall tenderness HEART : RRR, no obvious murmurs ABDOMEN: no distention, nontender EXTREMITIES : LLE splint, left ankle tenderness, no other conspicuous deformities noted NEUROLOGIC : Coherent, no facial asymmetry, chronic dysarthria, gait and stance not assessed Results & Data Results & Data ([facility]) Vital Signs (Past 12 Hours) Vital Signs Temp Pulse Resp BP Pulse Ox 10/29/21 20:27 100 10/29/21 20:04 36.4 C L 71 16 145/64 H 100 Laboratory Results Laboratory Results WBC 8.38 K/uL (4.8-10.8) 10/29/21 Unknown RBC 3.41 M/uL (4.2-5.4) L 10/29/21 Unknown Hgb 11.0 g/dL (12.0-16.0) L 10/29/21 Unknown Hct 32.8 % (37-47) L 10/29/21 Unknown MCV 96.2 fL (80-100) 10/29/21 Unknown MCH 32.3 pg (25-34) 10/29/21 Unknown MCHC 33.5 g/dL (32-36) 10/29/21 Unknown RDW Std Deviation 50.9 fL (36.4-46.3) H 10/29/21 Unknown RDW Coeff of Gale 14.4 % (11.5-14.5) 10/29/21 Unknown Plt Count 216 K/uL (130-400) 10/29/21 Unknown MPV 9.9 fL (7.4-10.4) 10/29/21 Unknown Immature Gran % (Auto) 0.2 % 10/29/21 Unknown Neut % (Auto) 72.7 % 10/29/21 Unknown Lymph % (Auto) 15.5 % 10/29/21 Unknown [place] % (Auto) 10.0 % 10/29/21 Unknown Eos % (Auto) 1.2 % 10/29/21 Unknown Baso % (Auto) 0.4 % 10/29/21 Unknown Neut # (Auto) 6.09 K/uL (1.4-6.5) 10/29/21 Unknown Lymph # (Auto) 1.30 K/uL (1.2-3.4) 10/29/21 Unknown [place] # (Auto) 0.84 K/uL (0.11-0.59) H 10/29/21 Unknown Eos # (Auto) 0.10 K/uL (0-0.5) 10/29/21 Unknown Baso # (Auto) 0.03 K/uL (0-0.2) 10/29/21 Unknown Immature Gran # (Auto) 0.02 K/uL (0.00-0.02) 10/29/21 Unknown Sodium 137 mmol/L (136-145) 10/29/21 Unknown Potassium 3.9 mmol/L (3.5-5.1) 10/29/21 Unknown Chloride 104 mmol/L (98-107) 10/29/21 Unknown Carbon Dioxide 25 mmol/L (21-32) 10/29/21 Unknown Anion Gap 8 (3-11) 10/29/21 Unknown BUN 23 mg/dl (6-23) 10/29/21 Unknown Creatinine 1.07 mg/dl (0.6-1.2) 10/29/21 Unknown Est Cr Clr Drug Dosing 31.7 ml/min 10/29/21 Unknown Est GFR ( Amer) 54.4 ml/min 10/29/21 Unknown Est GFR (Non-Af Amer) 47.0 ml/min 10/29/21 Unknown BUN/Creatinine Ratio 21.5 (10-20) H 10/29/21 Unknown Glucose 106 mg/dl (70-99(Fasting)) H 10/29/21 Unknown Calcium 9.8 mg/dl (8.5-10.1) 10/29/21 Unknown Total Bilirubin 0.4 mg/dl (0.2-1.0) 10/29/21 Unknown AST 18 U/L (13-39) 10/29/21 Unknown ALT 6 U/L (7-52) L 10/29/21 Unknown Alkaline Phosphatase 73 U/L (34-104) 10/29/21 Unknown Total Protein 7.0 gm/dl (6.0-8.3) 10/29/21 Unknown Albumin 4.0 gm/dl (3.4-5.0) 10/29/21 Unknown Globulin 3.0 gm/dl (2.5-4.0) 10/29/21 Unknown Albumin/Globulin Ratio 1.3 (0.9-2) 10/29/21 Unknown Impressions Abdomen/Pelvis CT 10/29/21 20:25 CT chest diagnostic wo con, CT abd pelvis wo con CT DOSE: HISTORY: fall, right rib pain TECHNIQUE: Multiaxial CT images of the chest, abdomen, and pelvis were performed without contrast. A dose lowering technique was utilized adhering to the principles of ALARA. COMPARISON: Chest CTA 10/03/2017. Abdomen and pelvis CT 09/21/2016. FINDINGS: Chest CT: There are old, healed right anterior second and sixth rib fractures. No acute fractures identified within the chest. Cervical spinal fusion hardware is partially visualized. A spinal stimulator lead is noted. No pneumothorax. Biapical nodular densities remain stable and favor scarring. Mild interstitial thickening at the lung bases which is likely chronic. Delayed There are few scattered subcentimeter calcified and noncalcified pulmonary nodules. Faint groundglass densities within the base of the right middle lobe and right lower lobe which may represent mild inflammatory/infectious change. Normal esophagus. No pericardial effusion. The heart is normal in size. Stable ectatic aortic arch. No mediastinal hematoma or lymphadenopathy. No hilar lymphadenopathy. Abdomen/pelvis CT: No pneumoperitoneum. No pneumatosis. Posterior decompression within the lumbar spine. No acute fractures within the visualized osseous structures. Calcifications within the anterior abdominal wall consistent with postoperative change. There are bilateral total hip arthroplasties. This results in metallic artifact within the pelvis. Suboptimal evaluation of the deep pelvic structures including the bladder. However, the bladder appears unremarkable. No definite pelvic free fluid. Multiple duodenal diverticula. The gallbladder are surgically absent. This likely accounts for the bile duct dilatation. The unenhanced liver, spleen, adrenal glands, pancreas, and kidneys are unremarkable. No hydronephrosis. No retroperitoneal lymphadenopathy. There is a 3.2 cm infrarenal abdominal aortic aneurysm. Colonic diverticulosis. No evidence for acute diverticulitis. There is suboptimal evaluation for bowel pathology due to the lack of intravenous and oral contrast. However, there is no definite bowel wall thickening or obstruction. IMPRESSION: 1. No acute traumatic process within the chest, abdomen, or pelvis. 2. Faint patchy groundglass densities within the right lung base. This may represent mild inflammatory/infectious change. 3. A 3.2 cm infrarenal abdominal aortic aneurysm. 4. Additional findings as described above. ACT 112: Negative or not required by law. Electronically signed by: Alvaro De La Cruz M.D. 10/29/2021 9:[address] 10/29/21 20:[address] DOSE: 1461.71 mGy.cm HISTORY: fall TECHNIQUE: Multiaxial CT images of the cervical spine were performed and reformatted in the sagittal and coronal plane without the use of contrast. A dose lowering technique was utilized adhering to the principles of ALARA. COMPARISON: None. FINDINGS: No fractures. C4-C7 ACDF. The hardware appears intact. There is 3 mm of anterolisthesis of C3 on C4. This is likely chronic. Prevertebral soft tissues and the C1-C2 interval are intact. No pneumothorax. IMPRESSION: No fractures within the cervical spine. ACT 112: Negative or not required by law. Electronically signed by: Alvaro De La Cruz M.D. 10/29/2021 9:[address] 10/29/21 20:25 CT chest diagnostic wo con, CT abd pelvis wo con CT DOSE: HISTORY: fall, right rib pain TECHNIQUE: Multiaxial CT images of the chest, abdomen, and pelvis were performed without contrast. A dose lowering technique was utilized adhering to the princi ples of ALARA. COMPARISON: Chest CTA 10/03/2017. Abdomen and pelvis CT 09/21/2016. FINDINGS: Chest CT: There are old, healed right anterior second and sixth rib fractures. No acute fractures identified within the chest. Cervical spinal fusion hardware is partially visualized. A spinal stimulator lead is noted. No pneumothorax. Biapical nodular densities remain stable and favor scarring. Mild interstitial thickening at the lung bases which is likely chronic. Delayed There are few scattered subcentimeter calcified and noncalcified pulmonary nodules. Faint groundglass densities within the base of the right middle lobe and right lower lobe which may represent mild inflammatory/infectious change. Normal esophagus. No pericardial effusion. The heart is normal in size. Stable ectatic aortic a rch. No mediastinal hematoma or lymphadenopathy. No hilar lymphadenopathy. Abdomen/pelvis CT: No pneumoperitoneum. No pneumatosis. Posterior decompression within the lumbar spine. No acute fractures within the visualized osseous structures. Calcifications within the anterior abdominal wall consistent with postoperative change. There are bilateral total hip arthroplasties. This results in metallic artifact within the pelvis. Suboptimal evaluation of the deep pelvic structures including the bladder. However, the bladder appears unremarkable. No definite pelvic free fluid. Multiple duodenal diverticula. The gallbladder are surgically absent. This likely accounts for the bile duct dilatation. The unenhanced liver, spleen, adrenal glands, pancreas, and kidneys are unremarkable. No hydronephrosis. No retroperitoneal lymphadenopathy. There is a 3.2 cm infrarenal abdominal aortic aneurysm. Colonic diverticulosis. No evidence for acute diverticulitis. There is suboptimal evaluation for bowel pathology due to the lack of intravenous and oral contrast. However, there is no definite bowel wall thickening or obstruction. IMPRESSION: 1. No acute traumatic process within the chest, abdomen, or pelvis. 2. Faint patchy groundglass densities within the right lung base. This may represent mild inflammatory/infectious change. 3. A 3.2 cm infrarenal abdominal aortic aneurysm. 4. Additional findings as described above. ACT 112: Negative or not required by law. Electronically signed by: Alvaro De La Cruz M.D. 10/29/2021 9:[address] 10/29/21 20:[address] DOSE: HISTORY: fall TECHNIQUE: Multiaxial CT images of the head were performed without the use of intravenous contrast. Automated exposure control was utilized for this study. A dose lowering technique was utilized adhering to the principles of ALARA. Comparison: Head CT 11/08/2020. Findings: The paranasal sinuses and mastoid air cells are clear. The calvarium a nd skull base are intact. The ventricles and sulci are within normal limits. There is no mass, hematoma, midline shift, or acute infarct. Impression: No acute intracranial abnormality. ACT 112: Negative or not required by law. Electronically signed by: Alvaro De La Cruz M.D. 10/29/2021 9:24 PM (1) Fall Encounter type: initial encounter Qualified Code(s): W19.XXXA - Unspecified fall, initial encounter
[2021-10-29] MEDS ORDERED: KETOROLAC TROMETHAMINE 15 MG/ML VIAL IV ONE (23:12)
[2021-10-29] MEDS ORDERED: LACTATED RINGER'S 1,000 ML IV ONE (23:13)
[2021-10-29] MEDS ORDERED: IBUPROFEN 200 MG TAB PO PRN (23:19)
[2021-10-29] MEDS ORDERED: ACETAMINOPHEN 325 MG TAB PO PRN (23:23)
[2021-10-30] MEDS ORDERED: PROMETHAZINE HCL 6.25 MG in SODIUM CHLORIDE 0.9% 50 ML IV PRN (00:30)
[2021-10-30] MEDS ORDERED: ACETAMINOPHEN 325 MG TAB PO PRN (00:30)
--- NOTE | 2021-10-30 07:03 | XRay Report ---
LEFT ANKLE 3 VIEWS CLINICAL HISTORY: Fall. Ankle injury. FINDINGS: 3 views of the left ankle are obtained. No prior studies are available for comparison at th e time of dictation. The skeletal structures are osteopenic. No fracture is identified. The ankle mor tise is intact. There is no joint effusion. Soft tissue edema is present around the ankle. There are dorsal and plantar calcaneal enthesophytes. Atherosclerotic calcification is noted in the regional ar teries. IMPRESSION: Soft tissue swelling with no fracture identified. Electronically signed by: Trenton Bergman M.D. 10/30/2021 7:02 AM
[2021-10-30] MEDS: PANTOprazole 40 MG TAB PO SCH (08:07)
[2021-10-30] MEDS: azaTHIOprine 50 MG TAB PO SCH (08:07)
[2021-10-30] MEDS: CYANOCOBALAMIN (B-12) 500 MCG TABLET PO SCH (08:07)
[2021-10-30] MEDS: HEPARIN SOD 5,000 UNIT/0.5 ML VIAL SQ SCH ×3 (08:07→21:03)
[2021-10-30] MEDS: SERTRALINE HCL 100 MG TABLET PO SCH (08:07)
--- NOTE | 2021-10-30 09:18 | XRay Report ---
LEFT FOOT 3 VIEWS CLINICAL HISTORY: Fall with left foot injury. FINDINGS: 3 views of the left foot are compared to study dated 05/21/2016. The skeletal structures are osteopenic. No acute fracture is identified. Moderate to advanced osteoarthritic change is seen at t he first metatarsophalangeal joint. Milder degenerative changes seen throughout the forefoot and midf oot. Benign appearing periostitis is again noted along the shafts of the metatarsals. There are dorsa l and plantar calcaneal enthesophytes. Soft tissue edema is seen around the ankle and along the dorsu m of the foot. There is atherosclerotic calcification of the regional arteries. IMPRESSION: 1. Soft tissue swelling with no fracture identified. 2. Osteopenia with degenerative change and heel spurs as above. Electronically signed by: Trenton Bergman M.D. 10/30/2021 9:17 AM
--- NOTE | 2021-10-30 10:34 | Hospitalist Progress Note ---
Date of Service October 30, 2021 Assessment & Plan (1) Fall: Plan: Traumatic chest wall pain Traumatic left ankle pain Patient reported she did not lose consciousness Reports wobbly gait Review of outpatient records show patient is currently being evaluated for some myelopathy or possible myasthenia gravis History suggest ambulatory dysfunction. Patient uses walker at home. Lives alone at home Get PT/OT evaluation No acute fractures noted on imaging History of PSVT/PAF as per records Currently NSR AAA Similar size to incidental finding on outpatient CT chest August 2021 History of CVA as per records Autoimmune hepatitis on low-dose Imuran Chronic anemia, hemoglobin at baseline Malnutrition (low BMI) Past tobacco abuse DVT prophylaxis. Heparin subcu DNR Patient requests for her son to be updated of her progress. Mr. King Wyatt (contact #[phone]) Admission and Anticipated Discharge Date Admission Date: October 29, 2021 Subjective Patient seen and examined Patient reported she fell while cleaning at home She denied any loss of consciousness Reports recurrent falls at home Denied any fevers, chills, nausea, vomiting, abd pain, diarrhea, constipation Reported chronic intermittent dysphagia if food is now chewed down completely Denied any cough, shortness of breath. Reported some mild right sided trunk pain where she fell and left leg pain which she stated has improved significantly Denied any dysuria, freq Physical Exam Constitutional: + well hydrated; no acute distress Elderly woman Eyes: PERRL, conjunctivae normal, anicteric sclerae ENMT: external ear and nose normal, oropharynx normal Hearing deficits Respiratory: normal respiratory effort, lungs clear to auscultation Cardiovascular: Rate/Rhythm: regular rate and regular rhythm S1 S2 Gastrointestinal (Abdomen): normal bowel sounds, soft, nontender, no hepatosplenomegaly Musculoskeletal: No pedal edema, no bruise in legs Neurologic: PERRL, EOMI, accommodation nl, no face palsy, no dysarthria Psychiatric: A+Ox3, euthymic affect Results & Data Results & Data ([facility]) Vital Signs (Past 12 Hours) Vital Signs Temp Pulse Pulse Pulse Resp BP BP 10/30/21 10:08 60 10/30/21 07:35 36.8 C 60 16 100/54 L 10/30/21 04:05 37.0 C 67 17 105/63 10/30/21 00:48 36.7 C 68 18 103/66 10/30/21 00:45 68 10/30/21 00:30 10/30/21 00:10 116/63 Pulse Ox Pulse Ox 10/30/21 10:08 10/30/21 07:35 99 10/30/21 04:05 99 10/30/21 00:48 97 10/30/21 00:45 10/30/21 00:30 97 10/30/21 00:10 Laboratory Results Abnormal lab results 10/29/21 10/29/21 Range/Units Unknown Unknown RBC 3.41 L (4.2-5.4) M/uL Hgb 11.0 L (12.0-16.0) g/dL Hct 32.8 L (37-47) % RDW Std Deviation 50.9 H (36.4-46.3) fL [place] # (Auto) 0.84 H (0.11-0.59) K/uL BUN/Creatinine Ratio 21.5 H (10-20) Glucose 106 H (70-99(Fasting)) mg/dl ALT 6 L (7-52) U/L (1) Fall Encounter type: initial encounter Qualified Code(s): W19.XXXA - Unspecified fall, initial encounter
[2021-10-30] MEDS: KETOROLAC TROMETHAMINE 15 MG/ML VIAL IV PRN ×2 (14:56→21:04)
--- NOTE | 2021-10-31 06:04 | Electrocardiogram Report ---
Test Reason : Blood Pressure : / mmHG Vent. Rate : 059 BPM Atrial Rate : 059 BPM P-R Int : 166 ms QRS Dur : 086 ms QT Int : 430 ms P-R-T Axes : 028 -31 010 degrees QTc Int : 425 ms Sinus bradycardia Left axis deviation Abnormal ECG When compared with ECG of 19-DEC-2020 16:07, No significant change was found Confirmed by Marino Hathaway ([id number]) on 10/31/2021 6:04:27 AM Referred By: REFERRED SELF Confirmed By:Marino Hathaway
[2021-10-31] MEDS: HEPARIN SOD 5,000 UNIT/0.5 ML VIAL SQ SCH ×3 (06:13→21:39)
[2021-10-31] MEDS: CYANOCOBALAMIN (B-12) 500 MCG TABLET PO SCH (08:08)
[2021-10-31] MEDS: PANTOprazole 40 MG TAB PO SCH (08:08)
[2021-10-31] MEDS: SERTRALINE HCL 100 MG TABLET PO SCH (08:08)
[2021-10-31] MEDS: azaTHIOprine 50 MG TAB PO SCH (08:08)
[2021-10-31 08:43] LABS: BUN Creatinine Ratio 25.3 (10-20); Calcium 9.7 mg/dl (8.5-10.1); Creatinine Clr Calc Pharmacy 40.6 ml/min; Est GFR (African American) 69.9 ml/min; Est GFR (Non-African American) 60.3 ml/min; Potassium 4.3 mmol/L (3.5-5.1)
--- NOTE | 2021-10-31 10:27 | Hospitalist Progress Note ---
Date of Service October 31, 2021 Assessment & Plan (1) Fall: Plan: Traumatic chest wall pain Traumatic left ankle pain Patient reported she did not lose consciousness Reports wobbly gait, chronic Review of outpatient records show patient is currently being evaluated for some myelopathy or possible myasthenia gravis History suggest ambulatory dysfunction. Patient uses walker at home. Lives alone at home No acute fractures noted on imaging PT/OT evaluation noted. Rehab recommended. Patient later agreed to rehab yesterday evening CM notified to start process History of PSVT/PAF as per records Currently NSR AAA Similar size to incidental finding on outpatient CT chest August 2021 History of CVA as per records Autoimmune hepatitis on low-dose Imuran Chronic anemia, hemoglobin at baseline Malnutrition (low BMI) Past tobacco abuse DVT prophylaxis. Heparin subcu DNR Dispo - med/surg Will dc once rehab is available Patient requests for her son to be updated of her progress. Mr. King Wyatt (contact #[phone]) Admission and Anticipated Discharge Date Admission Date: October 31, 2021 Subjective Patient seen and examined Denied any fevers, chills, nausea, vomiting, abd pain, diarrhea, constipation Denied any cough, shortness of breath. Report right sided trunk pain and left ankle pain where she fell are improved Denied any dysuria, freq Physical Exam Constitutional: + well hydrated; no acute distress Eyes: PERRL, conjunctivae normal, anicteric sclerae ENMT: external ear and nose normal, oropharynx normal Respiratory: normal respiratory effort, lungs clear to auscultation Cardiovascular: Rate/Rhythm: regular rate and regular rhythm S1 S2 Gastrointestinal (Abdomen): normal bowel sounds, soft, nontender, no hepatosplenomegaly Musculoskeletal: no cyanosis or clubbing, extremities motor strength 5/5 No pedal edema Neurologic: PERRL, EOMI, accommodation nl, no face palsy, no dysarthria Psychiatric: A+Ox3, euthymic affect Results & Data Results & Data ([facility]) Vital Signs (Past 12 Hours) Vital Signs Temp Pulse Resp BP Pulse Ox 10/31/21 07:32 36.4 C L 50 L 16 112/63 99 10/31/21 03:30 36.4 C L 53 L 16 115/65 100 10/30/21 23:20 36.7 C 64 18 102/63 96 Laboratory Results Abnormal lab results 10/31/21 Range/Units 07:40 BUN/Creatinine Ratio 25.3 H (10-20) (1) Fall Encounter type: initial encounter Qualified Code(s): W19.XXXA - Unspecified fall, initial encounter
[2021-10-31] MEDS: KETOROLAC TROMETHAMINE 15 MG/ML VIAL IV PRN (21:38)
[2021-11-01] MEDS: HEPARIN SOD 5,000 UNIT/0.5 ML VIAL SQ SCH ×3 (05:02→21:25)
[2021-11-01] MEDS: CYANOCOBALAMIN (B-12) 500 MCG TABLET PO SCH (08:44)
[2021-11-01] MEDS: azaTHIOprine 50 MG TAB PO SCH (08:44)
[2021-11-01] MEDS: PANTOprazole 40 MG TAB PO SCH (08:44)
[2021-11-01] MEDS: SERTRALINE HCL 100 MG TABLET PO SCH (08:44)
[2021-11-01] MEDS ORDERED: ONDANSETRON INJ 2 MG/ML 2 ML VIAL IV PRN (09:18)
[2021-11-01] MEDS: DOCUSATE SODIUM/SENNA 50/8.6MG TAB PO SCH (09:53)
--- NOTE | 2021-11-01 10:16 | Hospitalist Progress Note ---
Date of Service November 01, 2021 Assessment & Plan (1) Fall: Plan: Traumatic chest wall pain Traumatic left ankle pain Patient reported she did not lose consciousness Reported wobbly gait, chronic Review of outpatient records show patient is currently being evaluated for some myelopathy or possible myasthenia gravis History suggest ambulatory dysfunction. Patient uses walker at home. Lives alone at home No acute fractures noted on imaging PT/OT evaluation noted. Rehab recommended. CM working on placement History of PSVT/PAF as per records Currently NSR AAA Similar size to incidental finding on outpatient CT chest August 2021 History of CVA as per records Autoimmune hepatitis on low-dose Imuran Chronic anemia, hemoglobin at baseline Malnutrition (low BMI) Past tobacco abuse Antinausea med ordered Docusate-senna po ordered DVT prophylaxis. Heparin subcu DNR Dispo - med/surg Will dc once rehab is available Patient requests for her son to be updated of her progress. Mr. King Wyatt (contact #[phone]) Admission and Anticipated Discharge Date Admission Date: October 31, 2021 Subjective Patient seen and examined Had vomiting this morning after a bout of coughing Reports constipation Denied any fevers, chills, abd pain Denied any shortness of breath. Report right sided trunk pain and left ankle pain where she fell are much improved Denied any dysuria, freq Physical Exam Constitutional: + well hydrated; no acute distress Eyes: PERRL, conjunctivae normal, anicteric sclerae ENMT: external ear and nose normal, oropharynx normal Respiratory: normal respiratory effort, lungs clear to auscultation Cardiovascular: Rate/Rhythm: regular rate and regular rhythm S1 S2 Gastrointestinal (Abdomen): normal bowel sounds, soft, nontender, no hepatosplenomegaly Musculoskeletal: no cyanosis or clubbing, extremities motor strength 5/5 Neurologic: PERRL, EOMI, accommodation nl, no face palsy, no dysarthria Psychiatric: A+Ox3, euthymic affect Results & Data Results & Data ([facility]) Vital Signs (Past 12 Hours) Vital Signs Temp Pulse Pulse Pulse Resp BP BP 11/01/21 07:49 59 L 11/01/21 07:34 36.5 C 57 L 14 120/68 11/01/21 06:41 36.5 C 58 L 18 118/68 11/01/21 03:28 36.5 C 59 L 16 138/70 10/31/21 23:41 37 C 61 18 136/76 10/31/21 22:17 59 L Pulse Ox 11/01/21 07:49 11/01/21 07:34 98 11/01/21 06:41 95 11/01/21 03:28 97 10/31/21 23:41 97 10/31/21 22:17 (1) Fall Encounter type: initial encounter Qualified Code(s): W19.XXXA - Unspecified fall, initial encounter
[2021-11-01] MEDS ORDERED: KETOROLAC TROMETHAMINE 15 MG/ML VIAL IV ONE (21:33)
[2021-11-02] MEDS: HEPARIN SOD 5,000 UNIT/0.5 ML VIAL SQ SCH ×3 (05:08→20:28)
[2021-11-02 06:36] LABS: Hematocrit (blood only) 30.2 % (37-47); Hemoglobin 10.1 g/dL (12.0-16.0); Mean Corpuscular Hemoglobin 31.9 pg (25-34); Mean Corpuscular Hgb Conc 33.4 g/dL (32-36); Mean Corpuscular Volume 95.3 fL (80-100); Mean Platelet Volume 10.4 fL (7.4-10.4); Platelet Count 185 K/uL (130-400); RDW Coefficient of Variation 13.9 % (11.5-14.5); RDW Standard Deviation 48.5 fL (36.4-46.3); Red Blood Count 3.17 M/uL (4.2-5.4)
[2021-11-02 06:54] LABS: BUN Creatinine Ratio 28.2 (10-20); Calcium 9.5 mg/dl (8.5-10.1); Creatinine Clr Calc Pharmacy 42.2 ml/min; Est GFR (African American) 79.8 ml/min; Est GFR (Non-African American) 68.8 ml/min; Potassium 3.9 mmol/L (3.5-5.1)
[2021-11-02] MEDS: SERTRALINE HCL 100 MG TABLET PO SCH (08:22)
[2021-11-02] MEDS: CYANOCOBALAMIN (B-12) 500 MCG TABLET PO SCH (08:22)
[2021-11-02] MEDS: DOCUSATE SODIUM/SENNA 50/8.6MG TAB PO SCH (08:22)
[2021-11-02] MEDS: azaTHIOprine 50 MG TAB PO SCH (08:22)
[2021-11-02] MEDS: PANTOprazole 40 MG TAB PO SCH (08:23)
[2021-11-02] MEDS: POLYETHYLENE (MIRALAX) 17 GM PACK PO SCH ×2 (08:26→10:21)
--- NOTE | 2021-11-02 10:09 | Hospitalist Progress Note ---
Date of Service November 02, 2021 Assessment & Plan (1) Fall: Plan: Traumatic chest wall pain Traumatic left ankle pain Patient reported she did not lose consciousness Reported wobbly gait, chronic Review of outpatient records show patient is currently being evaluated for some myelopathy or possible myasthenia gravis History suggest ambulatory dysfunction. Patient uses walker at home. Lives alone at home No acute fractures noted on imaging PT/OT evaluation noted. Rehab recommended. CM working on placement History of PSVT/PAF as per records Currently NSR AAA Similar size to incidental finding on outpatient CT chest August 2021 History of CVA as per records Autoimmune hepatitis on low-dose Imuran Chronic anemia, hemoglobin at baseline Malnutrition (low BMI) Past tobacco abuse Continue docusate po Give miralax for constipation DVT prophylaxis. Heparin subcu DNR Dispo - med/surg Will dc once rehab is available Patient requests for her son to be updated of her progress. Mr. King Wyatt (contact #[phone]) Admission and Anticipated Discharge Date Admission Date: October 31, 2021 Subjective Patient seen and examined No vomiting or nausea today Still constipated Denied any fevers, chills, abd pain Denied any shortness of breath. No pain today Denied any dysuria, freq Physical Exam Constitutional: + well hydrated; no acute distress Eyes: PERRL, conjunctivae normal, anicteric sclerae ENMT: external ear and nose normal, oropharynx normal Respiratory: normal respiratory effort, lungs clear to auscultation Cardiovascular: Rate/Rhythm: regular rate and regular rhythm S1 S2 Gastrointestinal (Abdomen): normal bowel sounds, soft, nontender, no hepatosplenomegaly Musculoskeletal: no cyanosis or clubbing, extremities motor strength 5/5 Neurologic: PERRL, EOMI, accommodation nl, no face palsy, no dysarthria Psychiatric: A+Ox3, euthymic affect Results & Data Results & Data ([facility]) Vital Signs (Past 12 Hours) Vital Signs Temp Pulse Resp BP Pulse Ox 11/02/21 07:00 36.5 C 59 L 18 135/80 100 11/02/21 03:47 36.4 C L 60 18 129/64 94 11/01/21 23:00 36.8 C 61 18 123/67 94 Laboratory Results Abnormal lab results 11/02/21 11/02/21 Range/Units 05:52 05:52 WBC 4.70 L (4.8-10.8) K/uL RBC 3.17 L (4.2-5.4) M/uL Hgb 10.1 L (12.0-16.0) g/dL Hct 30.2 L (37-47) % RDW Std Deviation 48.5 H (36.4-46.3) fL BUN/Creatinine Ratio 28.2 H (10-20) (1) Fall Encounter type: initial encounter Qualified Code(s): W19.XXXA - Unspecified fall, initial encounter
[2021-11-02] MEDS ORDERED: ZOLPIDEM TARTRATE 5 MG TAB PO PRN (21:06)
[2021-11-03] MEDS: HEPARIN SOD 5,000 UNIT/0.5 ML VIAL SQ SCH ×3 (05:47→20:40)
[2021-11-03] MEDS: POLYETHYLENE (MIRALAX) 17 GM PACK PO SCH (08:44)
[2021-11-03] MEDS: SERTRALINE HCL 100 MG TABLET PO SCH (08:45)
[2021-11-03] MEDS: CYANOCOBALAMIN (B-12) 500 MCG TABLET PO SCH (08:45)
[2021-11-03] MEDS: azaTHIOprine 50 MG TAB PO SCH (08:45)
[2021-11-03] MEDS: PANTOprazole 40 MG TAB PO SCH (08:46)
[2021-11-03] MEDS: DOCUSATE SODIUM/SENNA 50/8.6MG TAB PO SCH (08:46)
--- NOTE | 2021-11-03 14:59 | Hospitalist Progress Note ---
Date of Service November 03, 2021 Assessment & Plan (1) Fall: Plan: Traumatic chest wall pain Traumatic left ankle pain Patient reported she did not lose consciousness Reported wobbly gait, chronic Review of outpatient records show patient is currently being evaluated for some myelopathy or possible myasthenia gravis History suggest ambulatory dysfunction. Patient uses walker at home. Lives alone at home No acute fractures noted on imaging PT/OT evaluation noted. Rehab recommended. CM working on placement History of PSVT/PAF as per records Currently NSR AAA Similar size to incidental finding on outpatient CT chest August 2021 History of CVA as per records Autoimmune hepatitis on low-dose Imuran Chronic anemia, hemoglobin at baseline Malnutrition (low BMI) Past tobacco abuse Continue docusate po Give miralax for constipation DVT prophylaxis. Heparin subcu DNR Dispo - med/surg Will dc once rehab is available Patient requests for her son to be updated of her progress. Mr. Kign Wyatt (contact #[phone]) Admission and Anticipated Discharge Date Admission Date: October 31, 2021 Subjective Patient seen and examined Denied nausea, vomiting, abd pain Constipation is resolved Denied any fevers, chills, abd pain Denied any shortness of breath. Denied any dysuria, freq Physical Exam Constitutional: + well hydrated; no acute distress Eyes: PERRL, conjunctivae normal, anicteric sclerae ENMT: external ear and nose normal, oropharynx normal Respiratory: normal respiratory effort, lungs clear to auscultation Cardiovascular: Rate/Rhythm: regular rate and regular rhythm S1 S2 Gastrointestinal (Abdomen): normal bowel sounds, soft, nontender, no hepatosplenomegaly Musculoskeletal: no cyanosis or clubbing, extremities motor strength 5/5 Neurologic: PERRL, EOMI, accommodation nl, no face palsy, no dysarthria Psychiatric: A+Ox3, euthymic affect Results & Data Results & Data ([facility]) Vital Signs (Past 12 Hours) Vital Signs Temp Pulse Resp BP BP Pulse Ox 11/03/21 14:51 36.5 C 67 16 144/83 H 94 11/03/21 07:50 36.5 C 65 18 129/71 94 (1) Fall Encounter type: initial encounter Qualified Code(s): W19.XXXA - Unspecified fall, initial encounter
[2021-11-04] MEDS: HEPARIN SOD 5,000 UNIT/0.5 ML VIAL SQ SCH ×2 (05:48→13:23)
[2021-11-04] MEDS: DOCUSATE SODIUM/SENNA 50/8.6MG TAB PO SCH (09:13)
[2021-11-04] MEDS: CYANOCOBALAMIN (B-12) 500 MCG TABLET PO SCH (09:13)
[2021-11-04] MEDS: SERTRALINE HCL 100 MG TABLET PO SCH (09:13)
[2021-11-04] MEDS: azaTHIOprine 50 MG TAB PO SCH (09:13)
[2021-11-04] MEDS: PANTOprazole 40 MG TAB PO SCH (09:13)
[2021-11-04] MEDS: POLYETHYLENE (MIRALAX) 17 GM PACK PO SCH (09:13)
--- NOTE | 2021-11-04 13:34 | Discharge Summary ---
Date of Service November 04, 2021 Admission HPI Per Admitting Provider History obtained from patient and records. Medical history significant for PSVT/PAF, AAA, hypertension not on meds, hyperlipidemia, history of CVA as per records, autoimmune hepatitis on Imuran, hx Schatzki's ring/aspiration risk, mood disorder, chronic anemia (baseline hemoglobin of 11), past tobacco abuse. Last confinement February 2018 for left clavicle/left humeral fracture secondary to mechanical fall. Conservative management for fracture. Patient discharged to rehab. Patient was doing some polishing at her home today when she fell down striking the right side of her chest and possibly her head. Patient not sure if she passed out before episode because she "never knows when I'm falling down". Achy chest pain and left ankle pain after the fall. No shortness of breath. No cough symptoms. Patient had trouble getting u patient brought to the ER for evaluation. MEDICAL HISTORY: As above. SURGERIES: Eye surgery, neck surgery, elbow surgery, hernia repair, cataract surgery, prior bladder tuck/vaginal defect repair, cholecystectomy, radial head removal, hysterectomy. FAMILY HISTORY: Breast cancer, heart disease, COPD. PERSONAL SOCIAL HISTORY: Past tobacco use. 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 Admission Exam Per Admitting Provider GENERAL: Slightly uncomfortable, underweight, dysarthric (chronic), no respiratory distress SKIN: Normal color, warm HEENT: [place]pect[place]led, [place] palpebral conjunctivae, no ptosis, dry buccal mucosa NECK : Supple, no tenderness CHEST : Decreased breath sounds, right anterior chest wall tenderness HEART : RRR, no obvious murmurs ABDOMEN: no distention, nontender EXTREMITIES : LLE splint, left ankle tenderness, no other conspicuous defo rmities noted NEUROLOGIC : Coherent, no facial asymmetry, chronic dysarthria, gait and stance not assessed Principal Diagnosis Recurrent falls Ambulatory dysfunction Discharge Exam Constitutional + well hydrated; no acute distress Eyes PERRL, conjunctivae normal, anicteric sclerae ENMT external ear and nose normal, oropharynx normal Respiratory normal respiratory effort, lungs clear to auscultation Cardiovascular Rate/Rhythm: regular rate and regular rhythm S1 S2 Gastrointestinal (Abdomen) normal bowel sounds, soft, nontender, no hepatosplenomegaly Musculoskeletal no cyanosis or clubbing, extremities motor strength 5/5 Neurologic PERRL, EOMI, accommodation nl, no face palsy, no dysarthria Psychiatric A+Ox3, euthymic affect Discharge Data Allergies Allergy/AdvReac Type Severity Reaction Status Date / Time Corticosteroids Allergy Intermediate STERIOD Verified 10/29/21 22:30 (Glucocorticoids) INJECTIONS - FLUSHING AND BLOTCHING REDNESS, ITCHY acetaminophen [From Percocet] Allergy Mild ITCHY Verified 10/29/21 22:30 ARMS/SHOULDERS, GROGGY chlorhexidine Allergy Mild RASH Verified 10/29/21 22:30 Iodinated Contrast Media Allergy Mild Rash/Hives Verified 10/29/21 22:30 morphine Allergy Mild RASH Verified 10/29/21 22:30 oxycodone Allergy Mild PERCOCET - Verified 10/29/21 22:30 ITCHING OF ARMS,SHOULDERS,GROGGY dipyridamole Allergy Unknown reaction Verified 10/29/21 22:30 unknown duloxetine AdvReac Intermediate SEDATION & Verified 10/29/21 22:30 BAD DREAMS codeine AdvReac Mild GI UPSET Verified 10/29/21 22:30 mepivacaine AdvReac Unknown pt states Verified 10/29/21 22:30 "just didnt work" Consultations 10/29/21 22:18 ED Decision to Admit Stat Ordered Studies 10/29/21 20:25 CT chest diagnostic wo con Stat CT abd pelvis wo con Stat Chest CT: There are old, healed right anterior second and sixth rib fractures. No acute fractures identified within the chest. Cervical spinal fusion hardware is partially visualized. A spinal stimulator lead is noted. No pneumothorax. Biapical nodular densities remain stable and favor scarring. Mild interstitial thickening at the lung bases which is likely chronic. Delayed There are few scattered subcentimeter calcified and noncalcified pulmonary nodules. Faint groundglass densities within the base of the right middle lobe and right lower lobe which may represent mild inflammatory/infectious change. Normal esophagus. No pericardial effusion. The heart is normal in size. Stable ectatic aortic arch. No mediastinal hematoma or lymphadenopathy. No hilar lymphadenopathy. Abdomen/pelvis CT: No pneumoperitoneum. No pneumatosis. Posterior decompression within the lumbar spine. No acute fractures within the visualized osseous structures. Calcifications within the anterior abdominal wall consistent with postoperative change. There are bilateral total hip arthroplasties. This results in metallic artifact within the pelvis. Suboptimal evaluation of the deep pelvic structures including the bladder. However, the bladder appears unremarkable. No definite pelvic free fluid. Multiple duodenal diverticula. The gallbladder are surgically absent. This likely accounts for the bile duct dilatation. The unenhanced liver, spleen, adrenal glands, pancreas, and kidneys are unremarkable. No hydronephrosis. No retroperitoneal lymphadenopathy. There is a 3.2 cm infrarenal abdominal aortic aneurysm. Colonic diverticulosis. No evidence for acute diverticulitis. There is suboptimal evaluation for bowel pathology due to the lack of intravenous and oral contrast. However, there is no definite bowel wall thickening or obstruction. IMPRESSION: 1. No acute traumatic process within the chest, abdomen, or pelvis. 2. Faint patchy groundglass densities within the right lung base. This may represent mild inflammatory/infectious change. 3. A 3.2 cm infrarenal abdominal aortic aneurysm. 4. Additional findings as described above. CT cervical spine wo con Stat No fractures. C4-C7 ACDF. The hardware appears intact. There is 3 mm of anterolisthesis of C3 on C4. This is likely chronic. Prevertebral soft tissues and the C1-C2 interval are intact. No pneumothorax. IMPRESSION: No fractures within the cervical spine CT head/brain wo con Stat The paranasal sinuses and mastoid air cells are clear. The calvarium and skull base are intact. The ventricles and sulci are within normal limits. There is no mass, hematoma, midline shift, or acute infarct. Impression: No acute intracranial abnormality Hospital Course (1) Fall: Traumatic chest wall pain Traumatic left ankle pain Patient reported she did not lose consciousness Reported wobbly gait, chronic Review of outpatient records show patient is currently being evaluated for some myelopathy or possible myasthenia gravis History suggest ambulatory dysfunction. Patient uses walker at home. Lives alone at home No acute fractures noted on imaging PT/OT evaluation noted. Rehab recommended. CM working on placement History of PSVT/PAF as per records Currently NSR AAA Similar size to incidental finding on outpatient CT chest August 2021 History of CVA as per records Autoimmune hepatitis on low-dose Imuran Chronic anemia, hemoglobin at baseline Malnutrition (low BMI) Past tobacco abuse Continue docusate po Discharged to rehab Total Time Total Time Spent Total Time Spent (In Minutes): 35 Total Time Includes: Examination of the Patient, Discharge Planning and Medication Reconciliation Discharge Plan Discharge Items Patient Disposition: Transfer Inpatient Rehab Fac Reason For Visit: Fall Discharge Diagnosis: Recurrent falls Ambulatory dysfunction Activity: As commented below Activity Comment: Per physical therapist recommendations Non-emergency contact: Primary Care Provider Call non-emergency contact if: you have any medication questions and your symptoms worsen Follow-up/Referrals: Kayleigh Mcgraw PA-C [Outside Practitioners] - (Date & Time 11/27/2021 10:00 AM Provider Kayleigh Mcgraw PA-C Department Rheumatology [facility] Appointment) Yris Perez PA-C [Physician Supervisor [employer]] - (Date & Time 11/07/2021 8:40 AM Provider Yris Perez PA-C Department Otolaryngology [facility] ) Mihaela Mims MD [Physician] - (Date & Time 11/21/2021 10:00 AM Provider Mihaela Mims MD Department Neurology [facility] ) Manish Roblero DO [Primary Care Provider] - Diet: Regular Diet Texture: Easy to Chew Diet Comment: Aspiration precautions Addtl Attending Provider Instructions: Mrs Shankar. You came to the hospital after a fall. You had been having recurrent falls You were evaluated and being discharged to center care for rehab Please ensure follow up with your Neurologist for ongoing work up for neurological problems. Please continue to take your medications. It was a pleasure taking care of you. Pending Studies at Discharge: No Stand-Alone Forms: My [facility] Skilled Items Patient informed of condition?: Yes DNR: Yes Discharge Level of Care: Acute rehab Communicable Disease: No Discharge Prognosis: Stable Lines: None Urinary Catheter: No Medications and DC Order Prescriptions: New sennosides-docusate sodium [Senokot-S] 8.6-50 mg Tablet 1 tab PO QAM Qty: 30 RF: 0 Continued sertraline 100 mg Tablet 200 mg PO QAM Qty: 30 RF: 0 cyanocobalamin (vitamin B-12) [Vitamin B-12] 1,000 mcg Tablet 1,000 mcg PO QAM Qty: 30 RF: 0 azathioprine [Imuran] 50 mg Tablet 50 mg PO QAM Qty: 30 RF: 0 acetaminophen [Acetaminophen Extra Strength] 500 mg Tablet 1,000 mg PO Q8H PRN (Reason: Pain) Qty: 30 RF: 0 pantoprazole 40 mg Tablet,Delayed Release (Dr/Ec) 40 mg PO QAM Qty: 30 RF: 0 cholecalciferol (vitamin D3) [Vitamin D3] 1,000 unit Capsule 4,000 unit PO QAM Qty: 30 RF: 0 Discharge Orders: Discharge Order (Routine); Ordered 11/04/21 Ordered By: Patty Sparks Admission Data Admit Date/Time: 10/31/21 08:58 Attending Provider: Patty Sparks I. Admit Provider: Shady Rausch Primary Care Provider: Manish Roblero Other Providers: Chapo Diaz [place] ; [place] ; Shady Rausch Other Interventions: Discharge Summary Assessment (RN) Last Done: 11/04/21 10:51
== END 2021-11-04 13:59 ==
LOC: 2N 20:09 → ED 20:09 → 2N 10-30 00:10 → 3N 11-02 12:58

== ENCOUNTER 2022-06-24 08:24 | Inpatient (IN) ==
--- NOTE | 2022-06-24 08:27 | Emergency Department Note ---
Impression & Plan Multifocal pneumonia, ALS (amyotrophic lateral sclerosis), Vomiting ED Provider Note NAME: TAYA BOLDEN AGE: 87 SEX: F : 1935 ARRIVES VIA: Ambulance INFORMANT: Patient, ED PROVIDER(S): Jose C Ackerman MD Chief Complaint: Chest pain, nausea vomiting patient presents with above symptoms and states that her symptoms began HPI: Yesterday evening. The patient states that they have been fairly constant with associated nausea vomiting when stating where her pain is it is more in the left lower chest upper abdomen. Patient does have a PEG tube in place but states that she still eats and drinks by mouth. Patient states that she had a bowel movement this morning. The patient does not complain of any bowel bladder incontinence urinary tension. She also has associated back pain and leg pain from the knees down. Patient denies any shortness of breath. Patient describes her chest pain is sharp and "annoying." The patient is not taken anything for her symptoms at home. Patient symptoms have been constant with no exacerbating remitting factors. No recent falls. The patient does live at home and does have a history of reported ALS. Per review of the patient's most recent discharge summary on November 04, 2021 the patient has a known 3.2 cm infrarenal abdominal aortic aneurysm. Patient reportedly does follow with Dr. Bynum at [facility]. Patient is on riluzole for her ALS. Patient is pending receiving an additional medication but has not yet been approved for a new medication secondary to insurance issues per the patient's daughter at bedside. Daughter at bedside does state that the patient's lower extremity weakness is chronic in nature. ROS: See HPI for pertinent positives and negatives. A total of 10 systems were reviewed and otherwise negative. Past medical history: See below Surgical history: See below Social history: See below Physical Exam: GENERAL: NAD, nontoxic, dry mucous membranes EYE EXAM: Normal conjunctiva. PERRL, no anisocoria and EOM's grossly intact w/o pain. NECK: Supple, no nuchal rigidity, no adenopathy, non-tender. No signs of meningismus. FROM of the neck with good chin to chest and neck extension. No stridor. LUNGS: Clear to auscultation. Normal chest wall mechanics. HEART: NSR, no MRG. ABDOMEN: Abdomen soft, PEG tube in place, midline incisional scar well-healing with no surrounding erythema, mid abdominal pain, normo-active bowel sounds, no masses, no rebound or guarding. BACK: No CVA TTP. SKIN: No rashes and no bruising. UPPER EXTREMITIES: Upper extremities are grossly normal. LOWER EXTREMITIES: Grossly normal, no edema. NEURO EXAM: A&O x3, cranial nerves II-XII grossly intact, normal speech, moves all 4 extremities. Differential diagnoses: Cardiac ischemia, aortic dissection, pulmonary embolism, pneumothorax, pneumonia, pericarditis, myocarditis, esophageal rupture, GERD, cholecystitis, pancreatitis, musculoskeletal, ppendicitis, ovarian cyst, ovarian torsion, ectopic , TOA, PID, infections, diverticulitis, UTI, obstruction, mesenteric ischemia, aortic pathology, inflammatory bowel disease, renal colic, PUD, pancreatitis, biliary pathology, hernia, volvulus, constipation, as well as other pathologies. Course: Patient was seen and evaluated the bedside. Full history physical exam was performed. EKG interpreted by me Normal sinus rhythm, rate of 88, normal intervals left axis deviation no ST elevations. Imaging Studies: See Below Cardiac monitoring: An order was placed for continuous cardiac monitoring. The monitor shows a rate of 68 with sinus rhythm. MDM: Patient was seen due to concern for chest pain upper abdominal pain nausea vomiting. Blood work is obtained along with an EKG troponin chest x-ray. CT abdomen pelvis was also ordered with CT lumbar spine. Patient has not had any bowel or bladder incontinence and does not have any saddle anesthesia. The patient does have bilateral lower extremity weakness which may be secondary to pain. Patient's photo shows a normal white count mild anemia hemoglobin 11.3 with a normal platelet count. The patient's kidney function is unremarkable but with prerenal azotemia. The patient did have a lower blood pressure and was ordered additional IV fluids. Initial troponin 20.8. Patient's EKG with no signs of obvious ischemia. Urinalysis with no signs of infection. The patient's CT There is no evidence of any fracture in the lumbar spine. The patient's chest x-ray is clear. The patient CT abdomen pelvis shows multifocal airspace opacities within the lower lungs. Patient does have aortic aneurysms measure up to 3.3 cm no evidence for rupture. Given the patient's history of bulbar ALS and vomiting I am concerned about the possibility of aspiration. Patient was ordered antibiotics and MRSA swab. I did speak the on-call hospitalist who patient was admitted to the medicine service. Patient is also troponin was borderline elevated but EKG did not show any evidence of obvious acute ischemia. 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 DATE OF DX - LONG TIME AGO PER PT ; PT UNSURE DETAILS - NO BLOOD THINNER Stroke 2011; RESIDUAL BALANCE/HEARING ISSUES; PARTIAL EPIGLOTTIS "PARALYSIS" SVT (supraventricular tachycardia) PT UNSURE Valvular heart disease MILD MR/MODERATE TR PT UNSURE Surgical History Fusion of spine LUMBAR X2 H/O elbow replacement RIGHT H/O neck surgery "plate in back of my neck"--normal ROM moving neck front and back History of appendectomy History of cataract surgery BILATERAL History of cholecystectomy History of colonoscopy History of esophagogastroduodenoscopy (EGD) most recent 03/22/21 [place] History of hysterectomy CARRI WITH BSO History of surgery 07/2018--removal of spinal cord stimulator History of tonsillectomy and adenoidectomy History of total hip arthroplasty B/L Status post insertion of spinal cord stimulator HX Family History Mother Family history of diabetes mellitus Sister Family history of diabetes mellitus Daughter Cancer COLON/LYMPHOMA Other No family history of adverse response to anesthesia Social History Smoking Status: Never smoker Second Hand Exposure: No; Hx Alcohol Use: Yes Alcohol type: wine Hx Substance Use: No Preferred Language: Surinamese Communication Ability: Effective 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 Beliefs That Will Affect Care: None marital status: / Current Living Situation: Alone Current Living Situation Comment: home alone, has home health nursing once/wk Other Information That Helps Us Care for You: No Feels Safe at Home: Yes Safety Concerns: Feels Safe At This Time Assistive Devices: Cane, Denture - Upper, Glasses, Hearing Aid - Bilateral and Walker Allergies Allergies Allergy/AdvReac Type Severity Reaction Status Date / Time Corticosteroids Allergy Intermediate STERIOD Verified 06/24/22 11:50 (Glucocorticoids) INJECTIONS - FLUSHING AND BLOTCHING REDNESS, ITCHY chlorhexidine Allergy Mild RASH Verified 06/24/22 11:50 Iodinated Contrast Media Allergy Mild Rash/Hives Verified 06/24/22 11:50 morphine Allergy Mild RASH Verified 06/24/22 11:50 oxycodone Allergy Mild PERCOCET - Verified 06/24/22 11:50 ITCHING OF ARMS,SHOULDERS,GROGGY dipyridamole Allergy Unknown reaction Verified 06/24/22 11:50 unknown duloxetine AdvReac Intermediate SEDATION & Verified 06/24/22 11:50 BAD DREAMS codeine AdvReac Mild GI UPSET Verified 06/24/22 11:50 mepivacaine AdvReac Unknown pt states Verified 06/24/22 11:50 "just didnt work" Home Meds Home Medications Medication Instructions Recorded Confirmed sennosides 8.6 mg-docusate sodium 1 tab PO Q OTHER DAY 12/07/21 06/24/22 50 mg tablet (Senokot-S) amoxicillin 500 mg capsule 500 mg PO QAM 06/24/22 06/24/22 mirtazapine 30 mg tablet 30 mg PO HS 06/24/22 06/24/22 multivitamin with minerals 1 tab PO DAILY 06/24/22 06/24/22 riluzole 50 mg tablet 50 mg PO BID 06/24/22 06/24/22 Previous Rx's Medication Instructions Recorded acetaminophen 500 mg tablet 1,000 mg PO Q8H PRN Pain #30 tabs 11/04/21 (Acetaminophen Extra Strength) azathioprine 50 mg tablet (Imuran) 50 mg PO QAM #30 tabs 11/04/21 cholecalciferol (vitamin D3) 25 4,000 unit PO QAM #30 caps 11/04/21 mcg (1,000 unit) capsule (Vitamin D3) cyanocobalamin (vitamin B-12) 1,000 mcg PO QAM #30 tabs 11/04/21 1,000 mcg tablet (Vitamin B-12) pantoprazole 40 mg tablet,delayed 40 mg PO QAM #30 tabs 11/04/21 release Results & Data (ED) Vital Signs Vital Signs - 24 hr 06/24/22 08:30 06/24/22 09:00 06/24/22 09:22 Temperature 36.7 C Temperature Source Oral Pulse Rate 92 H 85 83 Respiratory Rate 24 17 16 Respiratory Effort / Characteristics Short of Breath Respiratory Depth Shallow Respiratory Pattern Regular Blood Pressure 136/77 128/63 102/57 L Blood Pressure Mean 96 84 72 Blood Pressure Position Lying Pulse Oximetry 94 96 92 Oxygen Delivery Method Room Air Sepsis Recent Fever Within 48 Hours Yes Sepsis New/Unexplained Change in Mental Status N/A Sepsis Action Taken by Nursing No Action Required 06/24/22 09:30 06/24/22 10:00 06/24/22 10:30 Temperature Temperature Source Pulse Rate 81 82 85 Respiratory Rate 20 20 23 Respiratory Effort / Characteristics Respiratory Depth Respiratory Pattern Blood Pressure 102/81 86/58 L 77/65 L Blood Pressure Mean 88 67 69 Blood Pressure Position Pulse Oximetry 94 95 94 Oxygen Delivery Method Sepsis Recent Fever Within 48 Hours Sepsis New/Unexplained Change in Mental Status Sepsis Action Taken by Nursing 06/24/22 10:37 06/24/22 11:00 06/24/22 11:30 Temperature Temperature Source Pulse Rate 84 83 77 Respiratory Rate 21 24 22 Respiratory Effort / Characteristics Respiratory Depth Respiratory Pattern Blood Pressure 93/48 L 84/45 L 92/49 L Blood Pressure Mean 63 58 63 Blood Pressure Position Pulse Oximetry 93 93 94 Oxygen Delivery Method Sepsis Recent Fever Within 48 Hours Sepsis New/Unexplained Change in Mental Status Sepsis Action Taken by Nursing 06/24/22 12:00 06/24/22 12:30 06/24/22 12:31 Temperature Temperature Source Pulse Rate 79 73 Respiratory Rate 22 20 Respiratory Effort / Characteristics Respiratory Depth Respiratory Pattern Blood Pressure 89/51 L 78/46 L 78/46 L Blood Pressure Mean 63 56 56 Blood Pressure Position Pulse Oximetry 93 92 Oxygen Delivery Method Sepsis Recent Fever Within 48 Hours Sepsis New/Unexplained Change in Mental Status Sepsis Action Taken by Nursing 06/24/22 12:35 06/24/22 12:50 Temperature Temperature Source Pulse Rate 74 74 Respiratory Rate 19 20 Respiratory Effort / Characteristics Respiratory Depth Respiratory Pattern Blood Pressure 76/44 L 85/48 L Blood Pressure Mean 54 60 Blood Pressure Position Pulse Oximetry 91 93 Oxygen Delivery Method Sepsis Recent Fever Within 48 Hours Sepsis New/Unexplained Change in Mental Status Sepsis Action Taken by [facility] Medications Current Medication List: was personally reviewed by me Laboratory Data Attestation: I reviewed the patient's lab results. Result diagrams: 06/24/22 08:52 06/24/22 08:52 Lab Results 06/24/22 06/24/22 06/24/22 Range/Units 08:52 08:52 08:52 WBC 8.03 (4.8-10.8) K/ul RBC 3.58 L (3.93-5.22) M/uL Hgb 11.3 L (12.0-16.0) g/dl Hct 34.1 (34.1-44.9) % MCV 95.3 (80.0-100.0) fL MCH 31.6 (25.0-34.0) pg MCHC 33.1 (32.0-36.0) g/dL RDW Std Deviation 53.3 H (36.4-46.3) fL RDW Coeff of Gale 15.2 H (11.5-14.5) % Plt Count 209 (130-400) K/uL MPV 10.3 (9.4-12.3) fL Immature Gran % (Auto) 0.6 % Neut % (Auto) 93.1 % Lymph % (Auto) 2.5 % Mayes % (Auto) 3.6 % Eos % (Auto) 0.1 % Baso % (Auto) 0.1 % Neut # (Auto) 7.47 H (1.4-6.5) K/uL Lymph # (Auto) 0.20 L (1.2-3.4) K/uL Mayes # (Auto) 0.29 (0.24-0.82) K/uL Eos # (Auto) 0.01 (0-0.50) K/uL Baso # (Auto) 0.01 (0-0.2) K/uL Immature Gran # (Auto) 0.05 H (0.00-0.02) K/uL Toxic Vacuolation 1+ Sodium 135 L (136-145) mmol/L Potassium 3.8 (3.5-5.1) mmol/L Chloride 101 (98-107) mmol/L Carbon Dioxide 26 (21-32) mmol/L Anion Gap 8 (3-11) BUN 29 H (6-23) mg/dl Creatinine 0.74 (0.6-1.2) mg/dl Est Cr Clr Drug Dosing 46.2 ml/min Est GFR ( Amer) 84.4 ml/min Est GFR (Non-Af Amer) 72.8 ml/min BUN/Creatinine Ratio 39.2 H (10-20) Glucose 100 H (70-99(Fasting)) mg/dl Calcium 9.7 (8.5-10.1) mg/dl Total Bilirubin 0.7 (0.2-1.0) mg/dl AST 26 (13-39) U/L ALT 11 (7-52) U/L Alkaline Phosphatase 85 (34-104) U/L Troponin I High Sens 20.8 H (0-14) pg/ml Total Protein 7.7 (6.0-8.3) gm/dl Albumin 4.0 (3.4-5.0) gm/dl Globulin 3.7 (2.5-4.0) gm/dl Albumin/Globulin Ratio 1.1 (0.9-2) Lipase 39 (11-82) U/L Procalcitonin (0-0.5) ng/ml Urine Color Urine Appearance (Clear) Urine pH (4.5-7.5) Ur Specific [place] (1.000-1.030) Urine Protein (Negative) Urine Glucose (UA) (Negative) Urine Ketones (Negative) Urine Blood (Negative) Urine Nitrite (Negative) Urine Bilirubin (Negative) Urine Urobilinogen (Negative) Ur Leukocyte Esterase (Negative) Urine WBC (Auto) (0-5) /hpf Urine RBC (Auto) (0-4) /hpf U Hyaline Cast (Auto) (0-5) /lpf U Epithel Cells (Auto) (0-5) /lpf Urine Bacteria (Auto) (Negative) Nasal Screen MRSA (PCR) (Negative) SARS-CoV-2, RNA, NAAT NEGATIVE (NEGATIVE) 06/24/22 06/24/22 06/24/22 Range/Units 08:52 10:43 10:57 WBC (4.8-10.8) K/ul RBC (3.93-5.22) M/uL Hgb (12.0-16.0) g/dl Hct (34.1-44.9) % MCV (80.0-100.0) fL MCH (25.0-34.0) pg MCHC (32.0-36.0) g/dL RDW Std Deviation (36.4-46.3) fL RDW Coeff of Gale (11.5-14.5) % Plt Count (130-400) K/uL MPV (9.4-12.3) fL Immature Gran % (Auto) % Neut % (Auto) % Lymph % (Auto) % Mayes % (Auto) % Eos % (Auto) % Baso % (Auto) % Neut # (Auto) (1.4-6.5) K/uL Lymph # (Auto) (1.2-3.4) K/uL [place] # (Auto) (0.24-0.82) K/uL Eos # (Auto) (0-0.50) K/uL Baso # (Auto) (0-0.2) K/uL Immature Gran # (Auto) (0.00-0.02) K/uL Toxic Vacuolation Sodium (136-145) mmol/L Potassium (3.5-5.1) mmol/L Chloride (98-107) mmol/L Carbon Dioxide (21-32) mmol/L Anion Gap (3-11) BUN (6-23) mg/dl Creatinine (0.6-1.2) mg/dl Est Cr Clr Drug Dosing ml/min Est GFR ( Amer) ml/min Est GFR (Non-Af Amer) ml/min BUN/Creatinine Ratio (10-20) Glucose (70-99(Fasting)) mg/dl Calcium (8.5-10.1) mg/dl Total Bilirubin (0.2-1.0) mg/dl AST (13-39) U/L ALT (7-52) U/L Alkaline Phosphatase (34-104) U/L Troponin I High Sens (0-14) pg/ml Total Protein (6.0-8.3) gm/dl Albumin (3.4-5.0) gm/dl Globulin (2.5-4.0) gm/dl Albumin/Globulin Ratio (0.9-2) Lipase (11-82) U/L Procalcitonin 0.30 (0-0.5) ng/ml Urine Color Yellow Urine Appearance Clear (Clear) Urine pH 8.0 H (4.5-7.5) Ur Specific [place] 1.015 (1.000-1.030) Urine Protein Negative (Negative) Urine Glucose (UA) Negative (Negative) Urine Ketones Negative (Negative) Urine Blood Trace H (Negative) Urine Nitrite Negative (Negative) Urine Bilirubin Negative (Negative) Urine Urobilinogen Negative (Negative) Ur Leukocyte Esterase Negative (Negative) Urine WBC (Auto) 0 (0-5) /hpf Urine RBC (Auto) 10-30 H (0-4) /hpf U Hyaline Cast (Auto) 0 (0-5) /lpf U Epithel Cells (Auto) 10-20 H (0-5) /lpf Urine Bacteria (Auto) Negative (Negative) Nasal Screen MRSA (PCR) Negative (Negative) SARS-CoV-2, RNA, NAAT (NEGATIVE) Administered Medications Piperacillin Sod/Tazobactam (Sod 4.5 gm/ Dextrose) 120 mls @ 30 mls/hr IV Q8H JOSE J; Protocol Stop: 07/01/22 14:59 Last Admin: 06/24/22 16:12 Dose: 30 mls/hr Documented By: ILSA Dextrose/Sodium Chloride (D5w And Nss) 1,000 mls @ 40 mls/hr IV .Q24H JOSE J Stop: 07/24/22 16:14 Last Admin: 06/24/22 16:33 Dose: 40 mls/hr Documented By: ILSA Senna/Docusate Sodium (Docusate Sodium/Senna 50/8.6mg Tab) 1 tab PO Q2D JOSE J Stop: 07/24/22 14:59 Last Admin: 06/24/22 16:05 Dose: Not Given Documented By: ILSA Discontinued Medications Sodium Chloride (Nss 1000ml) 1,000 mls @ 999 mls/hr IV .Q1H1M ONE Stop: 06/24/22 09:33 Last Infusion: 06/24/22 09:55 Dose: 0 mls/hr Documented By: Admin: 06/24/22 08:51 Dose: 999 mls/hr Documented By: YAYA Acetaminophen (Ofirmev) 1,000 mg in 100 mls @ 400 mls/hr IV NOW STA Stop: 06/24/22 09:56 Last Infusion: 06/24/22 10:06 Dose: 0 mls/hr Documented By: Admin: 06/24/22 09:51 Dose: 400 mls/hr Documented By: YAYA Sodium Chloride (Nss 1000ml) 1,000 mls @ 999 mls/hr IV .Q1H1M ONE Stop: 06/24/22 11:18 Last Infusion: 06/24/22 11:49 Dose: 0 mls/hr Documented By: Admin: 06/24/22 10:42 Dose: 999 mls/hr Documented By: YAYA Piperacillin Sod/Tazobactam Sod (Zosyn) 4.5 gm in 120 mls @ 240 mls/hr IV NOW ONE Stop: 06/24/22 10:47 Last Infusion: 06/24/22 11:21 Dose: 0 mls/hr Documented By: Admin: 06/24/22 10:49 Dose: 240 mls/hr Documented By: YAYA Sodium Chloride (Nss) 500 mls @ 999 mls/hr IV .Q31M ONE Stop: 06/24/22 13:30 Last Admin: 06/24/22 15:49 Dose: Not Given Documented By: ILSA Sodium Chloride (Nss) 500 mls @ 999 mls/hr IV .Q31M ONE Stop: 06/24/22 16:10 Last Infusion: 06/24/22 16:58 Dose: 0 mls/hr Documented By: Admin: 06/24/22 15:58 Dose: 999 mls/hr Documented By: ILSA Ondansetron HCl (Ondansetron Inj 2 Mg/Ml 2 Ml Vial) 4 mg IV NOW STA Stop: 06/24/22 08:34 Last Admin: 06/24/22 08:51 Dose: 4 mg Documented By: [facility] Imaging Data Radiologist's Impression: Chest X-Ray 06/24/22 08:33 XR chest 1V portable CLINICAL HISTORY: Chest Pain TECHNIQUE: Single frontal radiograph of the chest was obtained. Comparison: Comparison is made to chest radiograph 12/19/2020 FINDINGS: spinal electrode is unchanged in position from prior exam. Calcified aortic knob is seen. The lungs are clear. No evidence of pleural effusion or pneumothorax. IMPRESSION: No acute chest disease. ACT 112: Negative or not required by law. Electronically signed by: Angel Gonzales M.D. 06/24/2022 9:56 AM Abdomen/Pelvis CT 06/24/22 08:36 CT OF THE ABDOMEN AND PELVIS WITHOUT CONTRAST CLINICAL HISTORY: PEG tube, vomiting/chest pain COMPARISON STUDY: CT of the abdomen and pelvis October 29, 2021. TECHNIQUE: Axial images of the abdomen and pelvis were obtained without IV contrast. Images were reviewed in the axial, sagittal, and coronal planes. Automated exposure control was utilized for the study. A dose lowering technique was utilized adhering to the principles of ALARA. FINDINGS: Note that the lumbar spine CT will be reported separately. Multifocal airspace opacities within the lower lungs are noted. No pneumatosis, free air or portal venous gas is present. Evaluation of the abdomen and pelvis is suboptimal on this unenhanced exam. Gastrostomy tube is well-positioned. Biliary ductal dilatation is unchanged and likely related to cholecystectomy. Unenhanced images of the liver, spleen, adrenal glands and kidneys are unremarkable. There is no hydronephrosis. No peripancreatic stranding is present. There is no pancreatic ductal dilatation. Suprarenal abdominal aortic aneurysm measures 3.2 cm. This is unchanged. Infrarenal abdominal aortic aneurysm measures 3.3 cm in caliber and is also unchanged. There is no evidence for rupture. No evidence for a bowel ob struction. Colonic diverticulosis is noted without evidence for acute diverticulitis. Images of the pelvis are degraded by streak artifact from bilateral hip arthroplasties. Postoperative finding within the spine are present. No acute fracture within the lumbar spine, pelvis or hips is identified. IMPRESSION: 1. Multifocal airspace opacities within the lower lungs which reflect pneumonia or aspiration pneumonitis. 2. Appropriately positioned gastrostomy tube. 3. No acute process within the abdomen or pelvis on unenhanced exam. 4. Stable supra and infrarenal abdominal aortic aneurysms. These measure up to 3.3 cm. No evidence for rupture. 5. Colonic diverticulosis. No evidence for acute diverticulitis. Moderate amount of stool within the rectum. ACT 112: Negative or not required by law. Electronically signed by: Khai Pichardo M.D. 06/24/2022 10:[address] 06/24/22 08:36 CT lumbar spine wo con CLINICAL HISTORY: back pain, leg weakness TECHNIQUE: Multidetector row helical CT of the lumbar spine was performed without administration of intravenous contrast. Coronal and sagittal reformations were obtained. Automated dose lowering techniques and/or adjustment according to patient size were utilized for this exam. Comparison: Comparison is made to MRI lumbar spine 05/19/[address] lumbar spine 05/11/2019 FINDINGS: For counting purposes, the last complete intervertebral disc space is considered L5-S1. No acute fractures are identified. Degenerative changes are noted in the visualized spine. Patient is status post laminectomy at L2-L5. Grade 1 anterolisthesis is seen at L3-L4 and L4-L5. Aortic atherosclerosis is seen, there is suggestion of a small aortic aneurysm however this is not completely visualized. A spinal stimulator is noted. IMPRESSION: Postsurgical and degenerative changes without evidence of acute abnormality. ACT 112: Negative or not required by law. Electronically signed by: Angel Gonzales M.D. 06/24/2022 9:52 AM Discharge Plan Visit Data Chief Complaint: Chest Pain Stated Complaint: CHEST PAIN, LEG PAIN ED Provider: Jose C Ackerman Discharge Problem: Multifocal pneumonia, ALS (amyotrophic lateral sclerosis), Vomiting Patient Disposition: Admitted As Inpatient Discharge Instructions Interventions: ED Discharge Assessment Last Done: 06/24/22 13:42
[2022-06-24] MEDS ORDERED: SODIUM CHLORIDE 0.9% 1000ML 1,000 ML IV ONE ×2 (08:33→10:18)
[2022-06-24] MEDS ORDERED: ONDANSETRON INJ 2 MG/ML 2 ML VIAL IV STA (08:33)
[2022-06-24 09:11] LABS: Hematocrit (blood only) 34.1 % (34.1-44.9); Hemoglobin 11.3 g/dl (12.0-16.0); Mean Corpuscular Hemoglobin 31.6 pg (25.0-34.0); Mean Corpuscular Hgb Conc 33.1 g/dL (32.0-36.0); Mean Corpuscular Volume 95.3 fL (80.0-100.0); Mean Platelet Volume 10.3 fL (9.4-12.3); Platelet Count 209 K/uL (130-400); RDW Coefficient of Variation 15.2 % (11.5-14.5); RDW Standard Deviation 53.3 fL (36.4-46.3); Red Blood Count 3.58 M/uL (3.93-5.22); White Blood Count 8.03 K/ul (4.8-10.8)
[2022-06-24 09:32] LABS: Albumin Globulin Ratio 1.1 (0.9-2); BUN Creatinine Ratio 39.2 (10-20); Basophils # (auto) 0.01 K/uL (0-0.2); Basophils % (auto) 0.1 %; Bilirubin,Total 0.7 mg/dl (0.2-1.0); Calcium 9.7 mg/dl (8.5-10.1); Creatinine Clr Calc Pharmacy 46.2 ml/min; Eosinophils # (auto) 0.01 K/uL (0-0.50); Eosinophils % (auto) 0.1 %; Est GFR (African American) 84.4 ml/min; Est GFR (Non-African American) 72.8 ml/min; Globulin 3.7 gm/dl (2.5-4.0); Immature Granulocytes # (auto) 0.05 K/uL (0.00-0.02); Immature Granulocytes % (auto) 0.6 %; Lymphocytes % (auto) 2.5 %; Monocytes # (auto) 0.29 K/uL (0.24-0.82); Monocytes % (auto) 3.6 %; Neutrophils # (auto) 7.47 K/uL (1.4-6.5); Neutrophils % (auto) 93.1 %; Potassium 3.8 mmol/L (3.5-5.1); Total Protein 7.7 gm/dl (6.0-8.3); Toxic Vacuolation 1+
[2022-06-24 09:37] LABS: Troponin I High Sensitivity 20.8 pg/ml (0-14)
[2022-06-24] MEDS ORDERED: ACETAMINOPHEN 1,000 MG/100 ML VIAL IV STA (09:42)
--- NOTE | 2022-06-24 09:54 | CT Scan Report ---
CT lumbar spine wo con CLINICAL HISTORY: back pain, leg weakness TECHNIQUE: Multidetector row helical CT of the lumbar spine was performed without administration of i ntravenous contrast. Coronal and sagittal reformations were obtained. Automated dose lowering techniq ues and/or adjustment according to patient size were utilized for this exam. Comparison: Comparison is made to MRI lumbar spine 05/19/[address] lumbar spine 05/11/2019 FINDINGS: For counting purposes, the last complete intervertebral disc space is considered L5-S1. No acute fractures are identified. Degenerative changes are noted in the visualized spine. Patient is status post laminectomy at L2-L5. Grade 1 anterolisthesis is seen at L3-L4 and L4-L5. Aortic atheros clerosis is seen, there is suggestion of a small aortic aneurysm however this is not completely visua lized. A spinal stimulator is noted. IMPRESSION: Postsurgical and degenerative changes without evidence of acute abnormality. ACT 112: Negative or not required by law. Electronically signed by: Angel Gonzales M.D. 06/24/2022 9:52 AM
--- NOTE | 2022-06-24 09:59 | XRay Report ---
XR chest 1V portable CLINICAL HISTORY: Chest Pain TECHNIQUE: Single frontal radiograph of the chest was obtained. Comparison: Comparison is made to chest radiograph 12/19/2020 FINDINGS: spinal electrode is unchanged in position from prior exam. Calcified aortic knob is seen. The lungs a re clear. No evidence of pleural effusion or pneumothorax. IMPRESSION: No acute chest disease. ACT 112: Negative or not required by law. Electronically signed by: Angel Gonzales M.D. 06/24/2022 9:56 AM
--- NOTE | 2022-06-24 10:05 | CT Scan Report ---
CT OF THE ABDOMEN AND PELVIS WITHOUT CONTRAST CLINICAL HISTORY: PEG tube, vomiting/chest pain COMPARISON STUDY: CT of the abdomen and pelvis October 29, 2021. TECHNIQUE: Axial images of the abdomen and pelvis were obtained without IV contrast. Images were revi ewed in the axial, sagittal, and coronal planes. Automated exposure control was utilized for the pia dy. A dose lowering technique was utilized adhering to the principles of ALARA. FINDINGS: Note that the lumbar spine CT will be reported separately. Multifocal airspace opacities wi thin the lower lungs are noted. No pneumatosis, free air or portal venous gas is present. Evaluation of the abdomen and pelvis is suboptimal on this unenhanced exam. Gastrostomy tube is well-positioned. Biliary ductal dilatation is unchanged and likely related to cholecystectomy. Unenhanced images of t he liver, spleen, adrenal glands and kidneys are unremarkable. There is no hydronephrosis. No peripan creatic stranding is present. There is no pancreatic ductal dilatation. Suprarenal abdominal aortic a neurysm measures 3.2 cm. This is unchanged. Infrarenal abdominal aortic aneurysm measures 3.3 cm in c aliber and is also unchanged. There is no evidence for rupture. No evidence for a bowel obstruction. Colonic diverticulosis is noted without evidence for acute diverticulitis. Images of the pelvis are d egraded by streak artifact from bilateral hip arthroplasties. Postoperative finding within the spine are present. No acute fracture within the lumbar spine, pelvis or hips is identified. IMPRESSION: 1. Multifocal airspace opacities within the lower lungs which reflect pneumonia or aspiration pneumon itis. 2. Appropriately positioned gastrostomy tube. 3. No acute process within the abdomen or pelvis on unenhanced exam. 4. Stable supra and infrarenal abdominal aortic aneurysms. These measure up to 3.3 cm. No evidence fo r rupture. 5. Colonic diverticulosis. No evidence for acute diverticulitis. Moderate amount of stool within the rectum. ACT 112: Negative or not required by law. Electronically signed by: Khai Pichardo M.D. 06/24/2022 10:02 AM
[2022-06-24] MEDS ORDERED: PIPERACILLIN/TAZOBACTAM 4.5 GM/120 ML BAG IV ONE (10:18)
[2022-06-24 11:16] LABS: Appearance Urine Clear (Clear); Bacteria Urine Automated Negative (Negative); Bilirubin Urine Negative (Negative); Blood Urine Trace (Negative); Cast Urine Automated 0 /lpf (0-5); Color Urine Yellow; Glucose Urine UA Negative (Negative); Ketones Urine Negative (Negative); Leukocyte Esterase Urine Negative (Negative); Nitrite Urine Negative (Negative); Protein Urine Negative (Negative); Specific Gravity Urine 1.015 (1.000-1.030); Urobilinogen Urine Negative (Negative); WBC Urine Automated 0 /hpf (0-5)
--- NOTE | 2022-06-24 11:54 | History & Physical Report ---
Date of Service June 24, 2022 Assessment & Plan (1) Aspiration pneumonia: (2) Weakness: (3) ALS (amyotrophic lateral sclerosis): (4) Gastrostomy tube in place: (5) GERD (gastroesophageal reflux disease): Plan: 87 yo F with PMhx of PSVT/PAF, AAA, HTN, HLD, history of CVA as per records, autoimmune hepatitis on Imuran, ALS on Riluzole dx December 2021, gastrostomy tube placed in Mar 2022 due to weight loss, hx Schatzki's ring, aspiration risk, mood disorder, chronic anemia (baseline hemoglobin of 11), remote tobacco abuse. - Admit to PCU - Sputum culture, mucinex, - Wears 2.5 L HS and with naps, currently not requiring O2, sats 94% at bedside, monitor - Influenza swab neg, MRSA swab neg, COVID neg - WBC at time of admission = 8.03 - BCx x 2, lactic and procal ordered, first antibiotic IV was given prior to blood cultures being drawn. - BP is hypotensive in the ER, 85/48 after 2L NSS, will give additional 1 L NSS, monitor - Febrile per pt last evening, afebrile here - CXR reviewed as above - Continue antibiotic therapy with zosyn IV - Consult databases computer consultant for tube feeding recommendations as she currently is using Isosource 1.5 at 89ml/hr x 14 hrs during the day as she cannot tolerate it while lying down/asleep. Pt ultimately hates the tube feedings, and wants it removed. She understands that it was placed for weight loss and due to the progression of her ALS. Her weight has improved from March when the tube was placed from 100 lbs to 111lbs. She is working with palliative care as an outpatient and does not thinks she needs additional palliative care support. Pt is a DNR/DNI. - Tooth abscess requiring amoxicillin will be treated with zosyn, adjust abx course accordingly on discharge DVT ppx: - teds, scds, lovenox subq CODE: DNR/DNI Dispo: Fro home, likely to remain in the hospital x 2 days (6) Immunosuppressed status: History of Present Illness Chief Complaint: Cough Primary Care Provider: Manish Roblero, DO This is an 87 yo F with PMhx of PSVT/PAF, AAA, HTN, HLD, history of CVA as per records, autoimmune hepatitis on Imuran, ALS on Riluzole dx December 2021, gastrostomy tube placed in Mar 2022 due to weight loss, hx Schatzki's ring, aspiration risk, mood disorder, chronic anemia (baseline hemoglobin of 11), remote tobacco abuse. PT reports that she "feels so bad, like shes been shot in the head, from the top of her head to her her toes she's in pain". She has significant pain all over her body. A speech therapist has been working with her for months due to dif ficulty swallowing and progression of ALS which was diagnosed in December 2021. Amazingly, Tay has been able to live at home independently, walks with walker, and does the majority of ADLs herself. Speech therapy has her taking bite sized bites and on thin liquids. 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 Last night she started coughing very hard, bringing up "buckets" of mucous which was clear/arenas. She thinks the color last night was the same as her tube feedings, she coughed it out her mouth and out her nose. Then she felt hot and had chills and knew she had a fever, but couldn't find the thermometer. Last evening she also had some chest pain with the coughing, which since is resolved. At home she wears supplemental O2 2.5 HS and with naps. Last night she had to sleep with her bed up in the highest position last evening, and at baseline with 2 pillows. When doing the 14 hr long tube feeds during the day, she feels like her abdomen is bloated and distended, she has belly pain worse after the feedings. She is tired of taking the tube feeds and wants to stop them, and has palliative care discussions and excellent nursing team working with her. She also mentions having a tooth abscess and saw her PCP yesterday. When she had a regular dental cleaning it was noticed last month, located under her bridge on the bottom left, and was supposed to start taking amoxicillin for it but had not picked it up yet. She was also given a script for and glycopyrolate for congestion and increased secretions. She uses a walker at baseline and lives by herself, her family visits her frequently, and a neighbor who helps at home. There are nurses that come at least once per week. Baseline tube feeds are with Isosource 1.5 at 89ml/hr for 14 hrs during the day, with saline water flushes as scheduled by the automatic pump. She cannot use feeds overnight due to ALS, gastric reflux, and risk of aspiration. Allergies Allergy/AdvReac Type Severity Reaction Status Date / Time Corticosteroids Allergy Intermediate STERIOD Verified 06/24/22 11:50 (Glucocorticoids) INJECTIONS - FLUSHING AND BLOTCHING REDNESS, ITCHY chlorhexidine Allergy Mild RASH Verified 06/24/22 11:50 Iodinated Contrast Media Allergy Mild Rash/Hives Verified 06/24/22 11:50 morphine Allergy Mild RASH Verified 06/24/22 11:50 oxycodone Allergy Mild PERCOCET - Verified 06/24/22 11:50 ITCHING OF ARMS,SHOULDERS,GROGGY dipyridamole Allergy Unknown reaction Verified 06/24/22 11:50 unknown duloxetine AdvReac Intermediate SEDATION & Verified 06/24/22 11:50 BAD DREAMS codeine AdvReac Mild GI UPSET Verified 06/24/22 11:50 mepivacaine AdvReac Unknown pt states Verified 06/24/22 11:50 "just didnt work" Home Medications Medication Instructions Recorded Confirmed Type acetaminophen 500 mg tablet 1,000 mg PO Q8H PRN Pain #30 tabs 11/04/21 06/24/22 Rx (Acetaminophen Extra Strength) azathioprine 50 mg tablet (Imuran) 50 mg PO QAM #30 tabs 11/04/21 06/24/22 Rx cholecalciferol (vitamin D3) 25 4,000 unit PO QAM #30 caps 11/04/21 06/24/22 Rx mcg (1,000 unit) capsule (Vitamin D3) cyanocobalamin (vitamin B-12) 1,000 mcg PO QAM #30 tabs 11/04/21 06/24/22 Rx 1,000 mcg tablet (Vitamin B-12) pantoprazole 40 mg tablet,delayed 40 mg PO QAM #30 tabs 11/04/21 06/24/22 Rx release sennosides 8.6 mg-docusate sodium 1 tab PO Q OTHER DAY 12/07/21 06/24/22 History 50 mg tablet (Senokot-S) amoxicillin 500 mg capsule 500 mg PO QAM 06/24/22 06/24/22 History mirtazapine 30 mg tablet 30 mg PO HS 06/24/22 06/24/22 History multivitamin with minerals 1 tab PO DAILY 06/24/22 06/24/22 History riluzole 50 mg tablet 50 mg PO BID 06/24/22 06/24/22 History Past Med/Surg History Medical History ALS (amyotrophic lateral sclerosis) Anemia CHRONIC Anxiety Autoimmune hepatitis "MEDICATION INDUCED"= ON IMURAN Depression Encounter for pre-operative examination Gastrostomy tube in place GERD (gastroesophageal reflux disease) Hiatal hernia Hip pain PT REPORTS STIMULATOR HAS BEEN REMOVED History of anesthesia reaction difficulty waking History of esophageal dilatation 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 DATE OF DX - LONG TIME AGO PER PT ; PT UNSURE DETAILS - NO BLOOD THINNER Stroke 2011; RESIDUAL BALANCE/HEARING ISSUES; PARTIAL EPIGLOTTIS "PARALYSIS" SVT (supraventricular tachycardia) PT UNSURE Valvular heart disease MILD MR/MODERATE TR PT UNSURE Surgical History Fusion of spine LUMBAR X2 H/O elbow replacement RIGHT H/O neck surgery "plate in back of my neck"--normal ROM moving neck front and back History of appendectomy History of cataract surgery BILATERAL History of cholecystectomy History of colonoscopy History of esophagogastroduodenoscopy (EGD) most recent 03/22/21 [place] History of hysterectomy CARRI WITH BSO History of surgery 07/2018--removal of spinal cord stimulator History of tonsillectomy and adenoidectomy History of total hip arthroplasty B/L Status post insertion of spinal cord stimulator HX Family History Mother Family history of diabetes mellitus Sister Family history of diabetes mellitus Daughter Cancer COLON/LYMPHOMA Other No family history of adverse response to anesthesia Social History Smoking Status: Never smoker Second Hand Exposure: No; Hx Alcohol Use: Yes Alcohol type: wine Hx Substance Use: No Preferred Language: Azerbaijani Communication Ability: Effective Program Clinician Required: No Beliefs That Will Affect Care: None marital status: / Current Living Situation: Alone Current Living Situation Comment: home alone Feels Safe at Home: Yes Assistive Devices: Denture - Upper, Glasses, Hearing Aid - Bilateral and Walker Review of Systems Review of Systems: Constitutional: + fever and, sweats , no chills Eyes: No diplopia, no worsening or blurred vision ENT: + slightly hard of hearing, + progressive swallowing dysfunction as per HPI Respiratory: + cough, sputum, no dyspnea at rest, worse shortness of breath on exertion Cardiovascular: No current chest pain, tightness or palpitations Abdomen: +gastrostomy tube with feedings causes pain, nausea, bloating, no vomiting, diarrhea or constipation Musculoskeletal: No joint pain, calf pain, swelling, + muscle spasms Neurologic: + generalized weakness, no numbness/tingling, + uses a walker at baseline, no recent falls Psychiatric: + mood disorder Skin: No rash or itch Physical Exam Physical Exam: General: awake, alert, no apparent distress Head: Normocephalic, atraumatic ENT: PERRL, EOMI, no pharyngeal exudate, mucous membranes moist Chest: Clear to auscultation, on room air, no adventitious breath sounds Cardiac: Regular rate and rhythm, no murmur, no JVD, normal peripheral pulses, good capillary refill Abdominal: NABS x 4 quadrants, soft, nondistended, nontender to palpation, no rebound or guarding Extremities: Normal inspection, no peripheral edema or erythema, calfs nontender to palpation Psych: Normal mood and affect Neuro: AAO x 3, strength intact bilaterally and rated 5/5, no motor deficits, speech is clear, no peripheral sensory deficits Results & Data Results & Data ([facility]) Vital Signs (Past 12 Hours) Vital Signs Temp Pulse Resp BP Pulse Ox O2 Del Method 06/24/22 11:30 77 22 92/49 L 94 06/24/22 11:00 83 24 84/45 L 93 06/24/22 10:37 84 21 93/48 L 93 06/24/22 10:30 85 23 77/65 L 94 06/24/22 10:00 82 20 86/58 L 95 06/24/22 09:30 81 20 102/81 94 06/24/22 09:22 83 16 102/57 L 92 06/24/22 09:00 85 17 128/63 96 06/24/22 08:30 36.7 C 92 H 24 136/77 94 Room Air Laboratory Results 06/24/22 06/24/22 06/24/22 10:57 10:43 08:52 WBC RBC Hgb Hct MCV MCH MCHC RDW Std Deviation RDW Coeff of Gale Plt Count MPV Immature Gran % (Auto) Neut % (Auto) Lymph % (Auto) [place] % (Auto) Eos % (Auto) Baso % (Auto) Neut # (Auto) Lymph # (Auto) [place] # (Auto) Eos # (Auto) Baso # (Auto) Immature Gran # (Auto) Toxic Vacuolation Sodium Potassium Chloride Carbon Dioxide Anion Gap BUN Creatinine Est Cr Clr Drug Dosing Est GFR ( Amer) Est GFR (Non-Af Amer) BUN/Creatinine Ratio Glucose Calcium Total Bilirubin AST ALT Alkaline Phosphatase Troponin I High Sens Total Protein Albumin Globulin Albumin/Globulin Ratio Lipase Urine Color Yellow Urine Appearance Clear Urine pH 8.0 H Ur Specific [place] 1.015 Urine Protein Negative Urine Glucose (UA) Negative Urine Ketones Negative Urine Blood Trace H Urine Nitrite Negative Urine Bilirubin Negative Urine Urobilinogen Negative Ur Leukocyte Esterase Negative Urine WBC (Auto) 0 Urine RBC (Auto) 10-30 H U Hyaline Cast (Auto) 0 U Epithel Cells (Auto) 10-20 H Urine Bacteria (Auto) Negative Nasal Screen MRSA (PCR) Negative SARS-CoV-2, RNA, NAAT NEGATIVE 06/24/22 06/24/22 08:52 08:52 WBC 8.03 RBC 3.58 L Hgb 11.3 L Hct 34.1 MCV 95.3 MCH 31.6 MCHC 33.1 RDW Std Deviation 53.3 H RDW Coeff of Gale 15.2 H Plt Count 209 MPV 10.3 Immature Gran % (Auto) 0.6 Neut % (Auto) 93.1 Lymph % (Auto) 2.5 [place] % (Auto) 3.6 Eos % (Auto) 0.1 Baso % (Auto) 0.1 Neut # (Auto) 7.47 H Lymph # (Auto) 0.20 L [place] # (Auto) 0.29 Eos # (Auto) 0.01 Baso # (Auto) 0.01 Immature Gran # (Auto) 0.05 H Toxic Vacuolation 1+ Sodium 135 L Potassium 3.8 Chloride 101 Carbon Dioxide 26 Anion Gap 8 BUN 29 H Creatinine 0.74 Est Cr Clr Drug Dosing 46.2 Est GFR ( Amer) 84.4 Est GFR (Non-Af Amer) 72.8 BUN/Creatinine Ratio 39.2 H Glucose 100 H Calcium 9.7 Total Bilirubin 0.7 AST 26 ALT 11 Alkaline Phosphatase 85 Troponin I High Sens 20.8 H Total Protein 7.7 Albumin 4.0 Globulin 3.7 Albumin/Globulin Ratio 1.1 Lipase 39 Urine Color Urine Appearance Urine pH Ur Specific [place] Urine Protein Urine Glucose (UA) Urine Ketones Urine Blood Urine Nitrite Urine Bilirubin Urine Urobilinogen Ur Leukocyte Esterase Urine WBC (Auto) Urine RBC (Auto) U Hyaline Cast (Auto) U Epithel Cells (Auto) Urine Bacteria (Auto) Nasal Screen MRSA (PCR) SARS-CoV-2, RNA, NAAT Diagnostic Findings Chest X-Ray 06/24/22 08:33 XR chest 1V portable CLINICAL HISTORY: Chest Pain TECHNIQUE: Single frontal radiograph of the chest was obtained. Comparison: Comparison is made to chest radiograph 12/19/2020 FINDINGS: spinal electrode is unchanged in position from prior exam. Calcified aortic knob is seen. The lungs are clear. No evidence of pleural effusion or pneumothorax. IMPRESSION: No acute chest disease. ACT 112: Negative or not required by law. Electronically signed by: Angel Gonzales M.D. 06/24/2022 9:56 AM Abdomen/Pelvis CT 06/24/22 08:36 CT OF THE ABDOMEN AND PELVIS WITHOUT CONTRAST CLINICAL HISTORY: PEG tube, vomiting/chest pain COMPARISON STUDY: CT of the abdomen and pelvis October 29, 2021. TECHNIQUE: Axial images of the abdomen and pelvis were obtained without IV contrast. Images were reviewed in the axial, sagittal, and coronal planes. Automated exposure control was utilized for the study. A dose lowering technique was utilized adhering to the principles of ALARA. FINDINGS: Note that the lumbar spine CT will be reported separately. Multifocal airspace opacities within the lower lungs are noted. No pneumatosis, free air or portal venous gas is present. Evaluation of the abdomen and pelvis is suboptimal on this unenhanced exam. Gastrostomy tube is well-positioned. Biliary ductal dilatation is unchanged and likely related to cholecystectomy. Unenhanced images of the liver, spleen, adrenal glands and kidneys are unremarkable. There is no hydronephrosis. No peripancreatic stranding is present. There is no pancreatic ductal dilatation. Suprarenal abdominal aortic aneurysm measures 3.2 cm. This is unchanged. Infrarenal abdominal aortic aneurysm measures 3.3 cm in caliber and is also unchanged. There is no evidence for rupture. No evidence for a bowel obstruction. Colonic diverticulosis is noted without evidence for acute diverticulitis. Images of the pelvis are degraded by streak artifact from bilateral hip arthroplasties. Postoperative finding within the spine are present. No acute fracture within the lumbar spine, pelvis or hips is identified. IMPRESSION: 1. Multifocal airspace opacities within the lower lungs which reflect pneumonia or aspiration pneumonitis. 2. Appropriately positioned gastrostomy tube. 3. No acute process within the abdomen or pelvis on unenhanced exam. 4. Stable supra and infrarenal abdominal aortic aneurysms. These measure up to 3.3 cm. No evidence for rupture. 5. Colonic diverticulosis. No evidence for acute diverticulitis. Moderate amount of stool within the rectum. ACT 112: Negative or not required by law. Electronically signed by: Khai Pichardo M.D. 06/24/2022 10:[address] 06/24/22 08:36 CT lumbar spine wo con CLINICAL HISTORY: back pain, leg weakness TECHNIQUE: Multidetector row helical CT of the lumbar spine was performed without administration of intravenous contrast. Coronal and sagittal reforma tions were obtained. Automated dose lowering techniques and/or adjustment according to patient size were utilized for this exam. Comparison: Comparison is made to MRI lumbar spine 05/19/[address] lumbar spine 05/11/2019 FINDINGS: For counting purposes, the last complete intervertebral disc space is considered L5-S1. No acute fractures are identified. Degenerative changes are noted in the visualized spine. Patient is status post laminectomy at L2-L5. Grade 1 anterolisthesis is seen at L3-L4 and L4-L5. Aortic atherosclerosis is seen, there is suggestion of a small aortic aneurysm however this is not completely visualized. A spinal stimulator is noted. IMPRESSION: Postsurgical and degenerative changes without evidence of acute abnormality. ACT 112: Negative or not required by law. Electronically signed by: Angel Gonzales M.D. 06/24/2022 9:52 AM Code Status & VTE Plan Code Status DNR/DNI - discussed with the patient at bedside Supervising Physician Co-Signing Physician Notes I have seen and examined the patient and have discussed the case with the provider above. I agree with the assessment and plan as stated. 87 yo immunosuppressed patient on azathioprine for autoimmune hepatitis also with underlying ALS presents with malaise, severe cough and aspiration pneumonitis. Symptoms began overnight and she feels better since the treatment she received in the ER already. Her family is with her at bedside. She states that she is able to take toast and coffee and supplement her tube feeds orally. Pills are a challenge. She denies pain at this point, SOB or any lightheadedness. She is alert, oriented and answering questions appropriately. She is fatigued appearing on exam and reported little sleep overnight. Cardiac exam reveals S1/2 without m/g/r and regular rate and rhythm is heard. Lungs are clear to auscultation throughout. Abdomen is soft, NTND and site around G tube is clear. She is able to roll over in bed independently and strength in lower extremities is 5/5 throughout. Workup so far reveals CBC within normal limits with mild anemia that is at her baseline. Sodium is 135, otherwise BMP is normal. Normal LFTs and no elevation of bilirubin. Troponin is mildly elevated at 20.8. Urinalysis reveals no evidence of infection with microscopic hematuria. Chest x-ray revealed no acute chest disease however abdominal pelvis CT without contrast was performed in the setting of a known PEG tube with vomiting and chest discomfort from coughing. This revealed no acute process in the abdomen or pelvis but multifocal airspace opacities in the lower lungs were noted. Overall this is an 87-year-old immunosuppressed female with ALS who presents with significant coughing and generalized malaise after not sleeping overnight and suffering an aspiration. She is also hypotensive despite 2.5 L of IV fluids. Agree for monitoring in PCU. No evidence of sepsis at this time. Cont close monitoring and may need pressor support temporarily for support. She would like to try Tessalon pearles or Robitussin cough syrup to help with her cough which is ongoing. Repeat troponin is pending, and chest pain appears to have been MSK in nature related to frequent coughing overnight. Cont Zosyn pending culture results and clinical improvement. Family including two sons and DIL were at the bedside and verbalized understanding of the plan. DO Tony
[2022-06-24] MEDS ORDERED: SODIUM CHLORIDE 0.9% 1000ML 1,000 ML IV SCH (12:56)
[2022-06-24] MEDS ORDERED: SODIUM CHLORIDE 0.9% 500 ML IV ONE ×3 (13:00→15:40)
--- NOTE | 2022-06-24 14:13 | Electrocardiogram Report ---
Test Reason : Blood Pressure : / mmHG Vent. Rate : 088 BPM Atrial Rate : 088 BPM P-R Int : 138 ms QRS Dur : 090 ms QT Int : 358 ms P-R-T Axes : 028 -33 033 degrees QTc Int : 433 ms Normal sinus rhythm Left axis deviation Abnormal ECG When compared with ECG of 07-DEC-2021 15:37, ST no longer depressed in Inferior leads Nonspecific T wave abnormality has replaced inverted T waves in Inferior leads Confirmed by Rey Ortiz ([id number]) on 06/24/2022 2:13:18 PM Referred By: REFERRED SELF Confirmed By:Rey Ortiz
[2022-06-24] MEDS ORDERED: ONDANSETRON INJ 2 MG/ML 2 ML VIAL IV PRN (14:44)
[2022-06-24] MEDS ORDERED: ACETAMINOPHEN 500 MG TAB PO PRN (14:44)
[2022-06-24] MEDS ORDERED: guaiFENesin/DEXTROM SYRUP 100MG/10MG 5ML UDC PO PRN (14:44)
[2022-06-24] MEDS ORDERED: DOCUSATE SODIUM/SENNA 50/8.6MG TAB PO SCH (15:00)
[2022-06-24] MEDS: PIPERACILLIN/TAZOBACTAM 4.5 GM in DEXTROSE 5% 100 ML IV SCH ×2 (16:12→21:01)
[2022-06-24] MEDS: D5W AND NSS 1,000 ML IV SCH (16:33)
[2022-06-24] MEDS ORDERED: PANTOprazole 40 MG in SYRINGE 0 ML IV ONE (17:39)
[2022-06-24] MEDS ORDERED: PEPTAMEN 1.5 CAL 1,000 ML BAG GT SCH (17:45)
[2022-06-24] MEDS: ACETAMINOPHEN 1,000 MG/100 ML VIAL IV PRN (17:45)
--- NOTE | 2022-06-24 18:14 | XRay Report ---
XR shoulder LT min 2V routine CLINICAL HISTORY: Left shoulder pain, r/o dislocation COMPARISON STUDY: Left shoulder 03/02/2018. FINDINGS: Deformity within the left humeral neck consistent with an old, healed fracture. No acute fr acture or dislocation within the left shoulder. Severe narrowing of the subacromial space with bone-o n-bone articulation consistent with chronic rotator cuff injury. This remains unchanged. There is mod erate osteoarthritis at the glenohumeral joint. Mild distal resorption of the left clavicle. No clavi cular fractures identified. Partially visualized cervical spinal fusion hardware is noted. There is a partially visualized spinal catheter. IMPRESSION: 1. No acute fracture or dislocation within the left shoulder. 2. Chronic and degenerative changes as described above. ACT 112: Negative or not required by law. Electronically signed by: Alvaro De La Cruz M.D. 06/24/2022 6:13 PM
[2022-06-24] MEDS: TUBE FEEDING WATER FLUSH GT SCH ×2 (20:00→21:01)
[2022-06-24] MEDS: MIRTAZAPINE TAB 15 MG TAB PO SCH (21:00)
[2022-06-24] MEDS: guaiFENesin 600 MG TABCR PO SCH (21:00)
[2022-06-24] MEDS: RILUZOLE PO SCH (21:02)
[2022-06-25] MEDS: TUBE FEEDING WATER FLUSH GT SCH ×6 (02:00→21:31)
[2022-06-25] MEDS: ACETAMINOPHEN 1,000 MG/100 ML VIAL IV PRN ×2 (02:34→20:48)
[2022-06-25] MEDS: PIPERACILLIN/TAZOBACTAM 4.5 GM in DEXTROSE 5% 100 ML IV SCH ×3 (05:52→20:44)
[2022-06-25 07:09] LABS: Hematocrit (blood only) 29.3 % (34.1-44.9); Hemoglobin 9.6 g/dl (12.0-16.0); Mean Corpuscular Hemoglobin 31.7 pg (25.0-34.0); Mean Corpuscular Hgb Conc 32.8 g/dL (32.0-36.0); Mean Corpuscular Volume 96.7 fL (80.0-100.0); Mean Platelet Volume 10.3 fL (9.4-12.3); Platelet Count 144 K/uL (130-400); RDW Coefficient of Variation 15.9 % (11.5-14.5); RDW Standard Deviation 56.1 fL (36.4-46.3); Red Blood Count 3.03 M/uL (3.93-5.22); White Blood Count 9.17 K/ul (4.8-10.8)
[2022-06-25 07:48] LABS: BUN Creatinine Ratio 33.3 (10-20); Calcium 7.7 mg/dl (8.5-10.1); Est GFR (African American) 92.1 ml/min; Est GFR (Non-African American) 79.4 ml/min; Potassium 3.7 mmol/L (3.5-5.1)
[2022-06-25] MEDS: guaiFENesin 600 MG TABCR PO SCH ×2 (08:39→20:45)
[2022-06-25] MEDS: azaTHIOprine 50 MG TAB PO SCH (08:41)
[2022-06-25] MEDS: RILUZOLE PO SCH ×2 (08:42→20:44)
[2022-06-25] MEDS ORDERED: CHOLECALCIFEROL 1,000 UNITS 25 MCG TAB PO SCH (09:00)
[2022-06-25] MEDS ORDERED: PANTOprazole 40 MG TAB PO SCH (09:00)
[2022-06-25] MEDS: ENOXAPARIN INJ 40 MG/0.4 ML SYR SQ SCH (10:21)
[2022-06-25] MEDS: PANTOprazole 40 MG in SYRINGE 0 ML IV SCH (11:28)
--- NOTE | 2022-06-25 14:48 | Hospitalist Progress Note ---
Date of Service June 25, 2022 Assessment & Plan (1) Aspiration pneumonia: Plan: 87 yo F with PMhx of PSVT/PAF, AAA, HTN, HLD, history of CVA as per records, autoimmune hepatitis on Imuran, ALS on Riluzole dx December 2021, gastrostomy tube placed in Mar 2022 due to weight loss, hx Schatzki's ring, aspiration risk, mood disorder, chronic anemia (baseline hemoglobin of 11), remote tobacco abuse. -Possible sepsis in an immunocompromised patient due to aspiration pneumonia/dental abscess -Chest x-ray was clear but CT of the abdomen and pelvis did show bibasilar infiltrate consistent with pneumonitis/aspiration pneumonia -Started on intravenous Zosyn and will continue -Sputum culture has been sent - Wears 2.5 L HS and with naps, currently not requiring O2, sats 94% at bedside, monitor - Influenza swab neg, MRSA swab neg, COVID neg - BCx x 2, lactic and procal ordered, first antibiotic IV was given prior to blood cultures being drawn. - BP is hypotensive in the ER, 85/48 after 2L NSS, will give additional 1 L NSS, monitor - Febrile per pt last evening, afebrile here - Continue antibiotic therapy with zosyn IV - Consult [employer] for tube feeding recommendations as she currently is using Isosource 1.5 at 89ml/hr x 14 hrs during the day as she cannot tolerate it while lying down/asleep. Pt ultimately hates the tube feedings, and wants it removed. She understands that it was placed for weight loss and due to the progression of her ALS. Her weight has improved from March when the tube was placed from 100 lbs to 111lbs. She is working with palliative care as an outpatient and does not thinks she needs additional palliative care support. Pt is a DNR/DNI. - Tooth abscess requiring amoxicillin will be treated with zosyn, adjust abx course accordingly on discharge -Clinically better denies any significant symptom (2) Weakness: Plan: Weakness has been progressing likely secondary to progression of ALS (3) ALS (amyotrophic lateral sclerosis): Plan: As above (4) Gastrostomy tube in place: Plan: Gastrostomy site is intact Patient does not want to be tube fed Discussed the consequences of not having any food orally and water through the tube She understands the consequences and is agreeable to have palliative care consult She will have a swallowing evaluationbarium swallow done today (5) GERD (gastroesophageal reflux disease): Plan: We will continue current medications for reflux (6) Immunosuppressed status: Plan: 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 Plan DVT ppx: - teds, scds, lovenox subq CODE: DNR/DNI Dispo: Fro home, likely to remain in the hospital x 2 days Admission and Anticipated Discharge Date Admission Date: June 24, 2022 Subjective 06/25/2022 The patient was seen and examined in telemetry unit She has ALS and with history of aspiration with the PEG tube in situ Admitted with increasing shortness of breath and worsening ALS symptoms She remains stable but she does not want to be fed through the PEG tube and she cannot take anything orally Palliative care consulted Review of Systems Review of Systems: All systems reviewed and are unremarkable except as noted below Physical Exam Physical Exam: Lying in bed comfortably Constitutional: + ill appearing and average body habitus Eyes: PERRL, conjunctivae normal, anicteric sclerae ENMT: external ear and nose normal, oropharynx normal Neck: trachea midline, no thyromegaly Respiratory: no respiratory distress Auscultation: + diminished lung sounds and + crackles (Bibasally) Cardiovascular: Rate/Rhythm: regular rate and regular rhythm; not tachycardic Heart Sounds: normal S1, normal S2 and + murmur Extremities: no edema Gastrointestinal (Abdomen): Inspection/Auscultation: normal bowel sounds; abdomen not distended Percussion/Palpation: abdomen soft; abdomen nontender PEG tube in situ Musculoskeletal: No acute arthritis in any joint Neurologic: Alert, awake and oriented x3 Lymphatic: no cervical or axillary lymphadenopathy Results & Data Results & Data ([facility]) Vital Signs (Past 12 Hours) Vital Signs Temp Pulse Pulse Resp BP Pulse Ox O2 Del Method 06/25/22 06:09 59 L 06/25/22 08:00 Nasal Cannula 06/25/22 07:39 36.7 C 60 18 100/61 96 06/25/22 04:40 36.3 C L 57 L 16 86/55 L 95 Nasal Cannula O2 Flow Rate 06/25/22 06:09 06/25/22 08:00 2 06/25/22 07:39 06/25/22 04:40 2 Laboratory Results Short CBC 06/25/22 Range/Units 06:49 WBC 9.17 (4.8-10.8) K/ul Hgb 9.6 L (12.0-16.0) g/dl Hct 29.3 L (34.1-44.9) % Plt Count 144 (130-400) K/uL [facility] 06/25/22 06:49 Sodium 138 Potassium 3.7 Chloride 111 H Carbon Dioxide 24 BUN 22 Creatinine 0.66 Glucose 111 H Calcium 7.7 L D Medications Administered Current Inpatient Medications Azathioprine (Azathioprine 50 Mg Tab) 50 mg PO QAM [facility] Stop: 07/25/22 08:59 Last Admin: 06/25/22 08:41 Dose: Not Given Enoxaparin Sodium (Enoxaparin Inj 40 Mg/0.4 Ml Syr) 40 mg SQ QAM [facility] Stop: 07/25/22 08:59 Last Admin: 06/25/22 10:21 Dose: 40 mg Enteral Nutritional Formula (Peptamen 1.5 John 1,000 Ml Bag) 1,000 ml GT UD [facility]; Protocol Stop: 07/24/22 17:44 Guaifenesin (Guaifenesin 600 Mg Tabcr) 1,200 mg PO Q12 [facility] [place] Stop: 07/24/22 20:59 Last Admin: 06/25/22 08:39 Dose: Not Given Guaifenesin/Dextromethorphan (Guaifenesin/Dextrom Syrup 100mg/10mg 5ml Udc) 5 ml PO Q6H PRN PRN Reason: Cough Stop: 07/24/22 14:43 Piperacillin Sod/Tazobactam (Sod 4.5 gm/ Dextrose) 120 mls @ 30 mls/hr IV Q8H [facility] [place]; Protocol Stop: 07/01/22 14:59 Last Admin: 06/25/22 14:41 Dose: 30 mls/hr Acetaminophen (Ofirmev) 1,000 mg in 100 mls @ 400 mls/hr IV Q8H PRN PRN Reason: fever, pain Stop: 06/27/22 16:02 Last Infusion: 06/25/22 02:49 Dose: Infused Dextrose/Sodium Chloride (D5w And Nss) 1,000 mls @ 75 mls/hr IV .[id number] [facility] [place] Stop: 07/24/22 16:14 Last Admin: 06/24/22 16:33 Dose: 40 mls/hr Pantoprazole Sodium 40 mg/ (Syringe) 10 mls @ 5 mls/min IV DAILY@1100 [facility] [place] Stop: 07/25/22 10:59 Last Admin: 06/25/22 11:28 Dose: 5 mls/min Mirtazapine (Mirtazapine Tab 15 Mg Tab) 30 mg PO HS [facility] [place] Stop: 07/24/22 20:59 Last Admin: 06/24/22 21:00 Dose: 30 mg Riluzole: Non- Formulary Patient's Own Med 1 each PO BID [facility] Stop: 07/24/22 20:59 Last Admin: 06/25/22 08:42 Dose: Not Given Ondansetron HCl (Ondansetron Inj 2 Mg/Ml 2 Ml Vial) 4 mg IV Q4H PRN PRN Reason: Nausea And Vomiting Stop: 07/24/22 14:43 Pantoprazole Sodium (Pantoprazole 40 Mg Tab) 40 mg PO QAM [facility] [place] Stop: 07/25/22 08:59 Senna/Docusate Sodium (Docusate Sodium/Senna 50/8.6mg Tab) 1 tab PO Q2D [facility] Stop: 07/24/22 14:59 Last Admin: 06/24/22 16:05 Dose: Not Given Sterile Water (Tube Feeding Water Flush) 120 ml GT Q4H [facility] Stop: 07/24/22 17:59 Last Admin: 06/25/22 14:34 Dose: 120 ml
--- NOTE | 2022-06-25 15:02 | Fluoroscopy Report ---
VIDEO SWALLOW STUDY CLINICAL HISTORY: Aspiration. COMPARISON STUDY: Barium esophagram dated 10/30/2017. Fluoroscopy time: 5.3 minutes. FINDINGS: Fluoroscopic guidance is provided to the Department of speech pathology in performing a vid eo swallow study. The patient consumed barium impregnated pudding, cracker with paste, thickened liqu ids, and thin barium while the swallowing mechanism was observed in real-time. There was aspiration w ith thin barium. No aspiration was clearly seen with the remaining sampled textures. Diffusion hardwa re is noted in the cervical spine. There is esophageal dysmotility. IMPRESSION: 1. There is aspiration with thin barium. 2. No definite aspiration was seen with the remaining sampled textures. 3. See dedicated speech pathology report for detailed findings and recommendations. Dictated: 06/25/2022 2:39 PM Transcribed: 06/25/2022 2:59 PM [place] [id number] [facility] Electronically signed by: Trenton Bergman M.D. 06/25/2022 3:01 PM
--- NOTE | 2022-06-25 15:51 | Palliative Care Consultation ---
Date of Consultation June 25, 2022 Assessment & Plan (1) Palliative care encounter: * Tay is frustrated with her current artificial nutrition formula, IsoSource 1.5 at 89ml/hr for about 14hr/day, which is causing significant abdominal discomfort, bloating, reflux and pain. She is not able to rest. Her d iscomfort will last all through the day because she is not resting she is also exhausted. This then further exacerbates her weakness and sometimes can cause some muscle spasms. She also notes that it has made her more desponded. In discussion with the patient she felt that the only option she had was to stop her artificial nutrition. However we discussed some alternative options including trying to change the formula versus slowing down both the rate and total quantities infused. She is willing to try this if a new formula can be identified that may be better tolerated and if she can reduce the total number of hours and quantity to be infused. I advised her that overall she is in control of her care. She does not have to follow her recommendations to the letter, rather it is our responsibility to help adapt recommendations to suit both her needs, tolerance as well as be in concordance with the wishes she has for herself. Our goal overall, I advised her, is to assure that we are delivering care that is in accordance with her wishes. If she does not want to have artificial nutrition infusing for prolonged periods of time then frankly she does not need to do so. She continues to infuse her artificial nutrition for a few hours at a time or perhaps just 4 hours a day as a compromise. I would defer to primary team and nutrition colleagues to help identify a formula that she may better tolerate. Clearly the current formula is not being tolerated and is causing significant side effects. She states she did ask for help with this to the navigator at the [facility], however the navigator told her no one was calling back from the supply company. I am unsure as to the status of that issue but would defer to nutrition here to help least help identify a better formula which can then be sent in to the [facility]. May also be a good time to try any formula on her while she is here to see how she tolerates it. * Patient is not looking to completely stop her artificial nutrition. She does see that there has been some benefit to it and that she has managed to gain approximately 11 pounds. She just feels that the current trade-offs of it i.e. the side effect profiles, are not really worthwhile for how she is feeling. Overall is not helping her feel better even if it did help her gain weight. She just needs an approach that is more in line with how she wants to live her life. Compromise outlined above is when she is willing to try. * We spoke about the overall progression of ALS and how this is an incurable illness. She is very familiar with it and shared with me that her ALS team and her she has also been preparing her for what will lie ahead. She knows that eventually she will get so weak that she will have trouble breathing. She has already made a decision that she does not want any ventilatory support. She is open to possible home-based oxygen therapies but nothing invasive. We discussed that the most common cause of in ALS is ventilatory failure; symptoms of ventilatory compromise, such as poor nighttime sleep, daytime somnolence, anorexia, morning headache, and weak cough, often precede dyspnea. NIV may be utilized to help relieve dyspnea. Regardless of ventilatory-assist choices, compassionate and effective palliative care must be implemented. * A calm environment, the reassuring presence of relatives, trunk elevation and chest physiotherapy may help provide more relief. * I advised her that the sensation of shortness of breathing can be reduced by morphine (2.5-10 mg by mouth or 1-2 mg IV/subcutaneous every 1-4 hours). Titration of the morphine dose against the clinical effect almost never leads to a life threatening respiratory depression and that her anxiety, if/when it worsens, can be treated with lorazepam (0.5-1.0 mg sublingually). * When co-morbid medical complications develop, or patient determined quality of life deteriorates, ventilatory support can be withdrawn and symptom control provided to allow for a comfortable . She was reassured by this, as she was feeling pressured that she would have to follow the recommendations of all her medical providers versus choosing what is the best fit for her. * Tay indicates a preference for trialing a new artificial nutrition formula, reducing both the rate of the infusion as well as total quantity infused per day, and has also decided she does not wish to pursue any aggressive respiratory support modalities apart from perhaps some nasal oxygen at home. We discussed that when the time comes and she begins to feel that she is having more bad days than good days or begins to need more physical assistance to move through her days and that would be a good time to initiate a referral to hospice. I advised her that the riluzole is a medication that offer some benefit earlier on in the course of ALS but as it reduces its later stages it does not have as much proven efficacy and will often help extend life by few months. She verbalized understanding of this and indicated a preference to stop medicines when they were no longer providing significant benefit to her. * Given that she is beginning to show some bronchitic cough and mild or aspiration like symptoms, I would suggest considering some flutter or percussion vest therapy for this patient. Patients with neuromuscular respiratory disease can be easily qualified for percussive vest therapies as well as NIV. * Patient has chronic neuromuscular respiratory failure in the setting of advancing ALS. CPAP is not appropriate, as there is no clinical concern for obstructive sleep apnea. Patient is at high risk for recurrent readmission and without noninvasive ventilatory support. Alarms and battery back up power are required and for this reason home mechanical ventilation is more appropriate than BiPAP-S. (2) Advanced care planning/counseling discussion: See above (3) ALS (amyotrophic lateral sclerosis): See discussion above (4) Sialorrhea: * Tay is concerned about the trouble she experienced at home leading to this admission with clearing her secretions and the degree of respiratory distress it created. We reviewed that bulbar weakness, spasticity, and loss of muscle control in ALS can lead to dysphagia, causing difficulty swallowing ones saliva. In ALS, it is caused by difficulty clearing secretions rather than by an increase in saliva production and sialorrhea in ALS often leads to drooling, which can be socially disabling as some patients are reluctant to engage in social interactions as a result of embarrassment. Difficulty with secretion management also increases the risk of perioral skin irritation and aspiration. * I advised her that there are medications that inhibit saliva production (atropine, glycopyrrolate, tricyclic anti-depressants, and scopolamine patches) may offer some relief but there are no RCTs specific to ALS evaluating effectiveness of these medication, which also come with anti- cholinergic side effect of xerostomia, constipation, urinary retention, and cognitive dysfunction are a risk. * Also advised her about Botox injections into salivary glands, which have demonstrated efficacy in randomized trials: the toxin reduces the production of saliva by inhibiting the release of acetylcholine at neurosecretory junctions within the salivary glands. Botulinum toxin A and B appear to have similar efficacy. The injections are typically performed by a neurologist in the office setting and generally must be repeated every 3 months. Inadvertent infiltration into adjacent muscles is a small risk. Rarely, xerostomia, dysphagia, or thickened secretions occur but the effects are most often temporary. Advantages of botulinum toxin treatment for sialorrhea are reduced systemic side effects and lack of drug-drug interactions.(Steven OMALLEY, Raimundo G, Shelley J, et al. Randomized double-blind study of botulinum toxin type B for sialorrhea in ALS patients. Muscle Nerve. 2009;39:137-143.) Given that she is followed at a multidisciplinary neuromuscular disease specialty clinic, it is likely she can have this intervention done there if and when she chooses. * To minimize drooling, portable suction devices can be used to clear excess secretions. Strongly recommend sending patient home with a portable suction device through home health. This will also provide her with reassurance and a sense of empowerment that when her secretions begin to feel overwhelming she can try to suction them out herself so that she does not reach the point of distress where she felt only an ambulance could help her. * In refractory cases, unilateral salivary gland irradiation delivered over 1-5 fractions may improve sialorrhea within 24 hours. Maximum benefit usually occurs within a week. Although xerostomia is a risk, salivary function will often return within 3 mos necessitating re-treatment. (5) Weakness generalized: She would be a reasonable candidate for some home-based PT services. (6) Aspiration pneumonia: * Recurrent/chronic and worsening with progression of ALS * Not improved with g tube, pt is having complications from ISABEL including reflux, bloating, distension and pain. * She is not tolerating the current artificial nutrition formula. Please see discussion above with recommendation to consider a trial of a new formula that might be better tolerated. (7) Myasthenia gravis: Plan * Would note that artificial nutrition and hydration (ISABEL) were originally developed to provide short-term support for patients who were acutely ill. For patients nearing/transitioning to EOL, ISABEL is unlikely to prolong life in addition to which researchers have found that ISABEL often leads to complications in patients nearing the end of life. Patients with advanced, life-limiting illness often lose the ability to eat and drink and/or interest in food and fluids. Like other medical interventions, it should be evaluated by weighing its benefits and burdens in light of the patient's clinical circumstances and goals of care. ISABEL may offer benefits when administered in the setting of acute, reversible illness, or as a component of chronic disease management, when the patient can appreciate the benefits of the treatment and significant burdens are not disproportionate. Near the end of life, some widely assumed benefits of ISABEL, such as alleviation of thirst, may be achieved by less invasive measures including good mouth care or providing ice chips. (Yadira CHARLES, Maritza ROWEK, Gustavo Shanks. after PEG: Results of the National Confidential Enquiry into Patient Outcome and . Gastrointest Endosc. 2008;68:223- 227andBrmack E, Katherine D, Merlyn S, et al. Parenteral hydration in patients with advanced cancer: A multicenter, double-blind, placebo-controlled randomized trial. J Clin Oncol. 2013;31:111-118.) * there comes a point in disease progression when the risk of the procedure outweighs the potential benefit: pt is expressing her perceptions that this point, for her, has been reached. * Riluzole is the only proven disease-modifying pharmacologic agent in ALS, but it provides only a modest survival benefit of 2-3 months, likely working via inhibition of glutamate release. Unfortunately, it does not palliate any ALS- associated symptoms or improve quality of life. The side effects such as fatigue can be significant enough to warrant discontinuation and given these factors, it is reasonable to discontinue the medication at the time of hospice enrollment or when pt becomes VDRF. * I have provided education about the hospice benefit. Hospice is an interdisciplinary program offered by nurses, nurses aides, social workers, chaplains and a outside medical sales representative for patients with a terminal condition and a life expectancy of less than 6 months. The goal would be to improve the quality of life of the patient in their home setting (home, halfway, inpatient hospice setting) by providing symptoms management, psychosocial and spiritual support. However, they cannot offer 24 hours care and if the family is unable to provide that care, they will have to consider personal care with out of pocket cost vs. halfway placement. Nara Desir DNP Clinical Director, Palliative Medicine History of Present Illness Reason for Consultation: "goals of care" Attending Physician: Citlali Hobbs MD History of Present Illness Mrs. Shankar is an 87yo female admitted yesterday with complaint of generalized, diffuse weakness and pain, air hunger and resp distress. Patient states that she was in her home when she began to have more trouble clearing her secretions, they started to become overwhelming, she could not cough them up and her respiratory distress increased. As this was going on she became weaker and noticed a generalized and diffuse weakness and pain setting in which also came with spasms and ralf muscle aches of her lower extremities. Her son arrived to take her to a medical appointment and she immediately asked him to call for an ambulance, feeling that between her breathing and the weakness, she did not have another choice. Patient has ALSO which has been progressing on therapy with Riluzole. Her ALS was dx in December 2021. She has been able to remain in her own home so far, with frequent visits from family, friends an neighbors. She has routine home health nurses visiting as well as speech therapy. She was able to tolerate PO intake with small bites and thin liquids but has required a PEG for the bulk of her nutrition. For nutrition she takes IsoSource 1.5 at 89ml/hr for about 14hr/day. This unfortunately has not been easy to tolerate and she has suffered with signif abd bloating, distension, pain. She feels worse after tube feedings and has been exploring the option to stop them. Admission note indicates she has been having discussions about this with palliative care, however I did not see prior [facility] or [facility] Pall care notes in the record. She went to see her PCP yesterday and a dental abscess was discovered. Amoxil was ordered but she did not have the chance to pick it up. She ambulates with a walker and has been largely IADLs per admission note. PMH: PSVT/PAF, AAA, HTN, HLD, history of CVA as per records, autoimmune hepatitis on Imuran, ALS on Riluzole dx December 2021, gastrostomy tube placed in Mar 2022 due to weight loss, hx Schatzki's ring, aspiration risk, mood disorder, chronic anemia (baseline hemoglobin of 11), remote tobacco abuse. Earlier today, pt advised Dr Hobbs that she does not want to continue tube feedings and expressed to him an understanding of the implications of that decision. He then requested a Palliative medicine consult to further explore this with pt and clarify her goals of care moving forward. Patient shares that she has been relatively independent since her diagnosis. She is followed by Dr. Bynum at the neurom[facility] disease center at [place]. She shares that this is a multidisciplinary team, anytime she has had a visit she is seeing multiple specialists and multiple departments at the 1 visit. She is happy with her care and feels that they have provided adequate education about ALS, what to expect and overall prognosis. She has a son who lives nearby and checks on her most days. Her neighbors are extremely supportive and come to check on her throughout the day multiple times and they are very close, she considers them family as well. She feels safe and well supported. Her goal overall is to remain in her home until the end of her life. She does not wish to discuss any options that would require her not being able to return to her home. She is amenable to home health support if needed. Mrs. Shankar states that she is having significant problems with her artificial nutrition. The formula is causing significant bloating, distention, reflux and abdominal discomfort. She says this also makes her tired and generally feeling weak as well as somewhat despondent. She is asking if the formula can be changed. She also states that the total quantity infused in the total number of hours required has been exhausting to her. She is not against continuing the artificial nutrition but would like some assistance in identifying perhaps a better formula that she will tolerate as well as decreasing the rate. Please see our discussion below. Allergies Allergy/AdvReac Type Severity Reaction Status Date / Time Corticosteroids Allergy Intermediate STERIOD Verified 06/24/22 11:50 (Glucocorticoids) INJECTIONS - FLUSHING AND BLOTCHING REDNESS, ITCHY chlorhexidine Allergy Mild RASH Verified 06/24/22 11:50 Iodinated Contrast Media Allergy Mild Rash/Hives Verified 06/24/22 11:50 morphine Allergy Mild RASH Verified 06/24/22 11:50 oxycodone Allergy Mild PERCOCET - Verified 06/24/22 11:50 ITCHING OF ARMS,SHOULDERS,GROGGY dipyridamole Allergy Unknown reaction Verified 06/24/22 11:50 unknown duloxetine AdvReac Intermediate SEDATION & Verified 06/24/22 11:50 BAD DREAMS codeine AdvReac Mild GI UPSET Verified 06/24/22 11:50 mepivacaine AdvReac Unknown pt states Verified 06/24/22 11:50 "just didnt work" Home Medications Medication Instructions Recorded Confirmed Type acetaminophen 500 mg tablet 1,000 mg PO Q8H PRN Pain #30 tabs 11/04/21 06/24/22 Rx (Acetaminophen Extra Strength) azathioprine 50 mg tablet (Imuran) 50 mg PO QAM #30 tabs 11/04/21 06/24/22 Rx cholecalciferol (vitamin D3) 25 4,000 unit PO QAM #30 caps 11/04/21 06/24/22 Rx mcg (1,000 unit) capsule (Vitamin D3) cyanocobalamin (vitamin B-12) 1,000 mcg PO QAM #30 tabs 11/04/21 06/24/22 Rx 1,000 mcg tablet (Vitamin B-12) pantoprazole 40 mg tablet,delayed 40 mg PO QAM #30 tabs 11/04/21 06/24/22 Rx release sennosides 8.6 mg-docusate sodium 1 tab PO Q OTHER DAY 12/07/21 06/24/22 History 50 mg tablet (Senokot-S) amoxicillin 500 mg capsule 500 mg PO QAM 06/24/22 06/24/22 History mirtazapine 30 mg tablet 30 mg PO HS 06/24/22 06/24/22 History multivitamin with minerals 1 tab PO DAILY 06/24/22 06/24/22 History riluzole 50 mg tablet 50 mg PO BID 06/24/22 06/24/22 History Patient History Medical History ALS (amyotrophic lateral sclerosis) Anemia CHRONIC Anxiety Autoimmune hepatitis "MEDICATION INDUCED"= ON IMURAN Depression Encounter for pre-operative examination Gastrostomy tube in place GERD (gastroesophageal reflux disease) Hiatal hernia Hip pain PT REPORTS STIMULATOR HAS BEEN REMOVED History of anesthesia reaction difficulty waking History of esophageal dilatation 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 DATE OF DX - LONG TIME AGO PER PT ; PT UNSURE DETAILS - NO BLOOD THINNER Stroke 2011; RESIDUAL BALANCE/HEARING ISSUES; PARTIAL EPIGLOTTIS "PARALYSIS" SVT (supraventricular tachycardia) PT UNSURE Valvular heart disease MILD MR/MODERATE TR PT UNSURE Surgical History Fusion of spine LUMBAR X2 H/O elbow replacement RIGHT H/O neck surgery "plate in back of my neck"--normal ROM moving neck front and back History of appendectomy History of cataract surgery BILATERAL History of cholecystectomy History of colonoscopy History of esophagogastroduodenoscopy (EGD) most recent 03/22/21 [place] History of hysterectomy CARRI WITH BSO History of surgery 07/2018--removal of spinal cord stimulator History of tonsillectomy and adenoidectomy History of total hip arthroplasty B/L Status post insertion of spinal cord stimulator HX Family History Mother Family history of diabetes mellitus Sister Family history of diabetes mellitus Daughter Cancer COLON/LYMPHOMA Other No family history of adverse response to anesthesia Social History Smoking Status: Never smoker Second Hand Exposure: No; Hx Alcohol Use: Yes Alcohol type: wine Hx Substance Use: No Preferred Language: Persian Communication Ability: Effective Planning Specialist Required: No Beliefs That Will Affect Care: None marital status: / Current Living Situation: Alone Current Living Situation Comment: home alone, has home health nursing once/wk Other Information That Helps Us Care for You: No Feels Safe at Home: Yes Safety Concerns: Feels Safe At This Time Assistive Devices: Walker Review of Systems Review of Systems: All systems reviewed & are unremarkable except as noted in Subjective Physical Exam Physical Exam: Frail elderly female, resting in a semireclined position in bed. Intermittent bronchitic and moist sounding cough. Some gurgling secretions. No drooling. Mild bitemporal wasting. No gross adenopathy. No thyromegaly, no stridor. Pupils are equal, round and reactive to light. Extraocular movements are intact. Upper extremity strength is equal bilaterally. Lower extremity strength is diminished but equal bilaterally. Heart tones are normal S1, S2, regular rate and rhythm. Chest with few scattered rhonchi, no wheezing. Intermittent bronchitic cough noted. There is no use of accessory muscles noted. There is mild conversational dyspnea with prolonged conversation. Abdomen is slightly distended but soft to touch with bowel sounds positive. There is a feeding tube on the left. Skin is pale but warm. + OA/arthritic changes of the hands. She is awake alert and oriented x3. She can follow commands and is cooperative with the exam. Her CAM ICU delirium screen is negative. Results & Data ([facility]) Vital Signs (Past 12 Hours) Vital Signs Temp Pulse Pulse Resp BP Pulse Ox O2 Del Method 06/25/22 06:09 59 L 06/25/22 08:00 Nasal Cannula 06/25/22 07:39 36.7 C 60 18 100/61 96 06/25/22 04:40 36.3 C L 57 L 16 86/55 L 95 Nasal Cannula O2 Flow Rate 06/25/22 06:09 06/25/22 08:00 2 06/25/22 07:39 06/25/22 04:40 2 Laboratory Results Labs and imaging reviewed PG Care Time/CCT Total # of Minutes Spent Total Time Spent: 100 Total Time Spent with Patient: Total time spent is greater than 50% in coordination of care (as documented) at patient's floor/unit and/or counseling patient: I spent 100 minutes overall addressing this complex case: 20 in medical data review/discussion with referring provider(s) and/or preparation for the visit 55 in direct interaction with the patient with 25 spent on Advance Care Planning/Goals of Care discussions as detailed above in note (must be >16min) 15 in subsequent review and synthesis of assessment and plan 10 in communicating with other providers regarding the patient's case: primary team, care mgt Coding Level of Care Code New Pt ADVNCD CARE PLAN 30 MIN Patient Type New History Comprehensive Exam Comprehensive Medical Decision Making High Complexity Diagnoses Palliative care encounter Z51.5 Advanced care planning/counseling discussion Z71.89 ALS (amyotrophic lateral sclerosis) G12.21 Sialorrhea K11.7 Weakness generalized R53.1 Aspiration pneumonia J69.0 Myasthenia gravis G70.00
[2022-06-25] MEDS: D5W AND NSS 1,000 ML IV SCH (20:00)
[2022-06-25] MEDS: MIRTAZAPINE TAB 15 MG TAB PO SCH (20:45)
[2022-06-26] MEDS: TUBE FEEDING WATER FLUSH GT SCH ×6 (02:00→20:53)
[2022-06-26] MEDS: PIPERACILLIN/TAZOBACTAM 4.5 GM in DEXTROSE 5% 100 ML IV SCH ×3 (07:41→20:17)
[2022-06-26 07:57] LABS: Basophils # (auto) 0.02 K/uL (0-0.2); Basophils % (auto) 0.2 %; Eosinophils # (auto) 0.18 K/uL (0-0.50); Eosinophils % (auto) 1.9 %; Hematocrit (blood only) 29.7 % (34.1-44.9); Hemoglobin 9.8 g/dl (12.0-16.0); Immature Granulocytes # (auto) 0.14 K/uL (0.00-0.02); Immature Granulocytes % (auto) 1.5 %; Lymphocytes # (auto) 0.44 K/uL (1.2-3.4); Lymphocytes % (auto) 4.7 %; Mean Corpuscular Hemoglobin 31.8 pg (25.0-34.0); Mean Corpuscular Volume 96.4 fL (80.0-100.0); Mean Platelet Volume 10.3 fL (9.4-12.3); Monocytes # (auto) 0.59 K/uL (0.24-0.82); Monocytes % (auto) 6.2 %; Neutrophils # (auto) 8.09 K/uL (1.4-6.5); Neutrophils % (auto) 85.5 %; Platelet Count 170 K/uL (130-400); RDW Standard Deviation 57.2 fL (36.4-46.3); Red Blood Count 3.08 M/uL (3.93-5.22); White Blood Count 9.46 K/ul (4.8-10.8)
[2022-06-26] MEDS ORDERED: LORazepam 0.5 MG TAB PO STA (08:13)
[2022-06-26] MEDS ORDERED: LOPERAMIDE HCL 2 MG CAP PO PRN (08:14)
[2022-06-26 08:28] LABS: BUN Creatinine Ratio 29.1 (10-20); Calcium 8.7 mg/dl (8.5-10.1); Creatinine Clr Calc Pharmacy 61.5 ml/min; Est GFR (African American) 97.7 ml/min; Est GFR (Non-African American) 84.3 ml/min; Magnesium 1.9 mg/dl (1.7-2.4); Phosphorus 2.1 mg/dl (2.5-4.9); Potassium 3.5 mmol/L (3.5-5.1)
[2022-06-26] MEDS: azaTHIOprine 50 MG TAB PO SCH (08:52)
[2022-06-26] MEDS: RILUZOLE PO SCH ×2 (08:53→20:17)
[2022-06-26] MEDS: ENOXAPARIN INJ 40 MG/0.4 ML SYR SQ SCH (08:54)
[2022-06-26] MEDS: guaiFENesin 600 MG TABCR PO SCH ×2 (08:54→20:16)
[2022-06-26] MEDS: ACETAMINOPHEN 1,000 MG/100 ML VIAL IV PRN (09:04)
[2022-06-26] MEDS: traMADol HCL 50 MG TABLET PO PRN (11:08)
[2022-06-26] MEDS: PANTOprazole 40 MG in SYRINGE 0 ML IV SCH (11:09)
[2022-06-26] MEDS: D5W AND NSS 1,000 ML IV SCH (11:41)
--- NOTE | 2022-06-26 13:14 | Hospitalist Progress Note ---
Date of Service June 26, 2022 Assessment & Plan (1) Aspiration pneumonia: Plan: 87 yo F with PMhx of PSVT/PAF, AAA, HTN, HLD, history of CVA as per records, autoimmune hepatitis on Imuran, ALS on Riluzole dx December 2021, gastrostomy tube placed in Mar 2022 due to weight loss, hx Schatzki's ring, aspiration risk, mood disorder, chronic anemia (baseline hemoglobin of 11), remote tobacco abuse. -Possible sepsis in an immunocompromised patient due to aspiration pneumonia/dental abscess -Chest x-ray was clear but CT of the abdomen and pelvis did show bibasilar infiltrate consistent with pneumonitis/aspiration pneumonia -Started on intravenous Zosyn and will continue -Sputum culture has been sent - Wears 2.5 L HS and with naps, currently not requiring O2, sats 94% at bedside, monitor - Influenza swab neg, MRSA swab neg, COVID neg - BCx x 2, lactic and procal ordered, first antibiotic IV was given prior to blood cultures being drawn. - BP is hypotensive in the ER, 85/48 after 2L NSS, will give additional 1 L NSS, monitor - Febrile per pt last evening, afebrile here - Continue antibiotic therapy with zosyn IV - Consult rough and truing machine operator for tube feeding recommendations as she currently is using Isosource 1.5 at 89ml/hr x 14 hrs during the day as she cannot tolerate it while lying down/asleep. Pt ultimately hates the tube feedings, and wants it removed. She understands that it was placed for weight loss and due to the progression of her ALS. Her weight has improved from March when the tube was placed from 100 lbs to 111lbs. She is working with palliative care as an outpatient and does not thinks she needs additional palliative care support. Pt is a DNR/DNI. - Tooth abscess requiring amoxicillin will be treated with zosyn, adjust abx course accordingly on discharge -Clinically better denies any significant symptom -We will change antibiotic to oral/via PEG to finish the course Nutritional status Has had a long discussion with the patient She wants to continue oral feeding as she has been doing it for a long time She is also willing to have PEG tube feeding with modified schedule-a few hours in one-time at multiple time times of the day She is well aware about the risk and wants to accepted We will get nutrition assessment and can have oral intake as she has been doing it Plan to discharge her home with palliative care as before (2) Weakness: Plan: Weakness has been progressing likely secondary to progression of ALS (3) ALS (amyotrophic lateral sclerosis): Plan: As above (4) Gastrostomy tube in place: Plan: Gastrostomy site is intact Patient does not want to be tube fed Discussed the consequences of not having any food orally and water through the tube She understands the consequences and is agreeable to have palliative care consult She will have a swallowing evaluationbarium swallow done today (5) GERD (gastroesophageal reflux disease): Plan: We will continue current medications for reflux (6) Immunosuppressed status: Plan: 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 Plan DVT ppx: - teds, scds, lovenox subq CODE: DNR/DNI Dispo: Fro home, likely to remain in the hospital x 2 days Admission and Anticipated Discharge Date Admission Date: June 24, 2022 Subjective 06/25/2022 The patient was seen and examined in telemetry unit She has ALS and with history of aspiration with the PEG tube in situ Admitted with increasing shortness of breath and worsening ALS symptoms She remains stable but she does not want to be fed through the PEG tube and she cannot take anything orally Palliative care consulted 06/26/2022 The patient was seen and examined in telemetry unit She complains to have headache and also bilateral leg pain She wishes to continue oral food as she has been doing for years and also willing to take modified form of PEG tube feeding She is well aware about the risk and she wants to take the risk Denies any other significant symptoms Review of Systems Review of Systems: All systems reviewed and are unremarkable except as noted below Physical Exam Physical Exam: Lying in bed comfortably Constitutional: + ill appearing and average body habitus Eyes: PERRL, conjunctivae normal, anicteric sclerae ENMT: external ear and nose normal, oropharynx normal Neck: trachea midline, no thyromegaly Respiratory: no respiratory distress Auscultation: + diminished lung sounds and + crackles (Bibasally) Cardiovascular: Rate/Rhythm: regular rate and regular rhythm; not tachycardic Heart Sounds: normal S1, normal S2 and + murmur Extremities: no edema Gastrointestinal (Abdomen): Inspection/Auscultation: normal bowel sounds; abdomen not distended Percussion/Palpation: abdomen soft; abdomen nontender Musculoskeletal: No acute arthritis in any joint Neurologic: Alert, awake and oriented x3. Generally very weak and lethargic Lymphatic: no cervical or axillary lymphadenopathy Results & Data Results & Data ([facility]) Vital Signs (Past 12 Hours) Vital Signs Temp Pulse Pulse Resp BP BP Pulse Ox 06/26/22 06:10 56 L 06/26/22 11:52 36.4 C L 57 L 18 103/64 95 06/26/22 08:09 36.3 C L 68 18 126/64 92 06/26/22 03:57 36.4 C L 60 16 117/62 94 O2 Del Method 06/26/22 06:10 06/26/22 11:52 06/26/22 08:09 06/26/22 03:57 Room Air Laboratory Results Short CBC 06/26/22 Range/Units 07:37 WBC 9.46 (4.8-10.8) K/ul Hgb 9.8 L (12.0-16.0) g/dl Hct 29.7 L (34.1-44.9) % Plt Count 170 (130-400) K/uL BMP 06/26/22 07:37 Sodium 137 Potassium 3.5 Chloride 109 H Carbon Dioxide 24 BUN 16 Creatinine 0.55 L Glucose 92 Calcium 8.7 Medications Administered Current Inpatient Medications Azathioprine (Azathioprine 50 Mg Tab) 50 mg PO QAM [facility] Stop: 07/25/22 08:59 Last Admin: 06/26/22 08:52 Dose: 50 mg Enoxaparin Sodium (Enoxaparin Inj 40 Mg/0.4 Ml Syr) 40 mg SQ QAM [facility] Stop: 07/25/22 08:59 Last Admin: 06/26/22 08:54 Dose: 40 mg Enteral Nutritional Formula (Peptamen 1.5 John 1,000 Ml Bag) 1,000 ml GT UD [facility]; Protocol Stop: 07/24/22 17:44 Guaifenesin (Guaifenesin 600 Mg Tabcr) 1,200 mg PO Q12 [facility] Stop: 07/24/22 20:59 Last Admin: 06/26/22 08:54 Dose: Not Given Guaifenesin/Dextromethorphan (Guaifenesin/Dextrom Syrup 100mg/10mg 5ml Udc) 5 ml PO Q6H PRN PRN Reason: Cough Stop: 07/24/22 14:43 Piperacillin Sod/Tazobactam (Sod 4.5 gm/ Dextrose) 120 mls @ 30 mls/hr IV Q8H [facility]; Protocol Stop: 07/01/22 14:59 Last Infusion: 06/26/22 12:12 Dose: Infused Acetaminophen (Ofirmev) 1,000 mg in 100 mls @ 400 mls/hr IV Q8H PRN PRN Reason: fever, pain Stop: 06/27/22 16:02 Last Infusion: 06/26/22 09:38 Dose: Infused Dextrose/Sodium Chloride (D5w And Nss) 1,000 mls @ 75 mls/hr IV .[id number] [facility] Stop: 07/24/22 16:14 Last Infusion: 06/26/22 12:12 Dose: 75 mls/hr Pantoprazole Sodium 40 mg/ (Syringe) 10 mls @ 5 mls/min IV DAILY@1100 [facility] Stop: 07/25/22 10:59 Last Admin: 06/26/22 11:09 Dose: 5 mls/min Loperamide HCl (Loperamide Hcl 2 Mg Cap) 2 mg PO Q4H PRN PRN Reason: Diarrhea Stop: 07/26/22 08:13 Last Admin: 06/26/22 08:52 Dose: 2 mg Mirtazapine (Mirtazapine Tab 15 Mg Tab) 30 mg PO HS [facility] Stop: 07/24/22 20:59 Last Admin: 06/25/22 20:45 Dose: 30 mg Riluzole: Non- Formulary Patient's Own Med 1 each PO BID [facility] Stop: 07/24/22 20:59 Last Admin: 06/26/22 08:53 Dose: 1 mg Ondansetron HCl (Ondansetron Inj 2 Mg/Ml 2 Ml Vial) 4 mg IV Q4H PRN PRN Reason: Nausea And Vomiting Stop: 07/24/22 14:43 Pantoprazole Sodium (Pantoprazole 40 Mg Tab) 40 mg PO QAM [facility] Stop: 07/25/22 08:59 Senna/Docusate Sodium (Docusate Sodium/Senna 50/8.6mg Tab) 1 tab PO Q2D [facility] Stop: 07/24/22 14:59 Last Admin: 06/24/22 16:05 Dose: Not Given Sterile Water (Tube Feeding Water Flush) 120 ml GT Q4H [facility] Stop: 07/24/22 17:59 Last Admin: 06/26/22 09:38 Dose: Not Given Tramadol HCl (Tramadol Hcl 50 Mg Tablet) 25 mg PO Q4H PRN PRN Reason: Pain Stop: 07/26/22 09:31 Last Admin: 06/26/22 11:08 Dose: 25 mg
[2022-06-26] MEDS ORDERED: POTASSIUM PHOS 3 MMOL/1 ML INFUSION IV STA (13:17)
[2022-06-26] MEDS ORDERED: POTASSIUM PHOSPHATE 24 MMOL in SODIUM CHLORIDE 0.9% 500 ML IV ONE (13:45)
--- NOTE | 2022-06-26 14:05 | Palliative Care Progress Note ---
Date of Service June 26, 2022 Assessment & Plan (1) Palliative care encounter: (2) ALS (amyotrophic lateral sclerosis): (3) Aspiration pneumonia: (4) Right sided abdominal pain: (5) Dysphagia: (6) Weakness generalized: Plan Await input from nutrition re new ISABEL, trial run during this admission. I have updated [facility] Katia Nolen Med/Dr Ludmila Ferguson, they will see her at her next [facility] appt in a few weeks. Nara Desir DNP Clinical Director, Palliative Medicine Admission and Anticipated Discharge Date Admission Date: June 24, 2022 Subjective no new complaints nutrition is coming to see pt today to review/reassess for new ISABEL formulation -I discussed with Diego Review of Systems Review of Systems: All systems reviewed & are unremarkable except as noted in Subjective Physical Exam Physical Exam: Frail elderly female, resting in a semireclined position in bed. Intermittent bronchitic and moist sounding cough. Some gurgling secretions. No drooling. Mild bitemporal wasting. No gross adenopathy. No thyromegaly, no stridor. Pupils are equal, round and reactive to light. Extraocular movements are intact. Upper extremity strength is equal bilaterally. Lower extremity strength is diminished but equal bilaterally. Heart tones are normal S1, S2, regular rate and rhythm. Chest with few scattered rhonchi, no wheezing. Intermittent bronchitic cough noted. There is no use of accessory muscles noted. There is mild conversational dyspnea with prolonged conversation. Abdomen is slightly distended but soft to touch with bowel sounds positive. There is a feeding tube on the left. Skin is pale but warm. + OA/arthritic changes of the hands. She is awake alert and oriented x3. She can follow commands and is cooperative with the exam. Her CAM ICU delirium screen is negative. Results & Data ([facility]) Vital Signs (Past 12 Hours) Vital Signs Temp Pulse Pulse Resp BP BP Pulse Ox 06/26/22 06:10 56 L 06/26/22 11:52 36.4 C L 57 L 18 103/64 95 06/26/22 08:09 36.3 C L 68 18 126/64 92 06/26/22 03:57 36.4 C L 60 16 117/62 94 O2 Del Method 06/26/22 06:10 06/26/22 11:52 06/26/22 08:09 06/26/22 03:57 Room Air PG Care Time/CCT Total # of Minutes Spent Total Time Spent: 45 Total Time Spent with Patient: Total time spent is greater than 50% in coordination of care (as documented) at patient's floor/unit and/or counseling patient: 30min in counseling and plan of care discussion [place] [address] Subseq Hosp Care Lvl 2 Patient Type Established History Expanded Problem Focused Exam Detailed Medical Decision Making Moderate Complexity Diagnoses Palliative care encounter Z51.5 ALS (amyotrophic lateral sclerosis) G12.21 Aspiration pneumonia J69.0 Right sided abdominal pain R10.9 Dysphagia R13.10 Weakness generalized R53.1
[2022-06-26] MEDS: MIRTAZAPINE TAB 15 MG TAB PO SCH (20:17)
[2022-06-26] MEDS: PEPTAMEN 1.5 CAL 1,000 ML BAG GT SCH (20:53)
[2022-06-27] MEDS: TUBE FEEDING WATER FLUSH GT SCH ×6 (02:38→21:43)
[2022-06-27] MEDS: D5W AND NSS 1,000 ML IV SCH ×3 (04:29→20:19)
[2022-06-27 07:02] LABS: Creatinine Clr Calc Pharmacy 61.5 ml/min; Est GFR (African American) 97.7 ml/min; Est GFR (Non-African American) 84.3 ml/min
[2022-06-27] MEDS: PIPERACILLIN/TAZOBACTAM 4.5 GM in DEXTROSE 5% 100 ML IV SCH (07:25)
[2022-06-27] MEDS: guaiFENesin 600 MG TABCR PO SCH ×2 (07:48→20:31)
[2022-06-27] MEDS: RILUZOLE PO SCH ×2 (07:48→21:42)
[2022-06-27] MEDS: azaTHIOprine 50 MG TAB PO SCH (07:48)
[2022-06-27] MEDS: ENOXAPARIN INJ 40 MG/0.4 ML SYR SQ SCH (07:48)
--- NOTE | 2022-06-27 13:27 | Hospitalist Progress Note ---
Date of Service June 27, 2022 Assessment & Plan (1) Aspiration pneumonia: Plan: 87 yo F with PMhx of PSVT/PAF, AAA, HTN, HLD, history of CVA as per records, autoimmune hepatitis on Imuran, ALS on Riluzole dx December 2021, gastrostomy tube placed in Mar 2022 due to weight loss, hx Schatzki's ring, aspiration risk, mood disorder, chronic anemia (baseline hemoglobin of 11), remote tobacco abuse. -Possible sepsis in an immunocompromised patient due to aspiration pneumonia/dental abscess -Chest x-ray was clear but CT of the abdomen and pelvis did show bibasilar infiltrate consistent with pneumonitis/aspiration pneumonia -Started on intravenous Zosyn and will continue -Sputum culture has been sent - Wears 2.5 L HS and with naps, currently not requiring O2, sats 94% at bedside, monitor - Influenza swab neg, MRSA swab neg, COVID neg - BCx x 2, lactic and procal ordered, first antibiotic IV was given prior to blood cultures being drawn. - BP is hypotensive in the ER, 85/48 after 2L NSS, will give additional 1 L NSS, monitor - Febrile per pt last evening, afebrile here - Continue antibiotic therapy with zosyn IV - Consult court recorder for tube feeding recommendations as she currently is using Isosource 1.5 at 89ml/hr x 14 hrs during the day as she cannot tolerate it while lying down/asleep. Pt ultimately hates the tube feedings, and wants it removed. She understands that it was placed for weight loss and due to the progression of her ALS. Her weight has improved from March when the tube was placed from 100 lbs to 111lbs. She is working with palliative care as an outpatient and does not thinks she needs additional palliative care support. Pt is a DNR/DNI. - Tooth abscess requiring amoxicillin will be treated with zosyn, adjust abx course accordingly on discharge -Clinically better denies any significant symptom -Antibiotic changed to Unasyn IV while in the hospital and will change to Augmentin on discharge Nutritional status Has had a long discussion with the patient She wants to continue oral feeding as she has been doing it for a long time She is also willing to have PEG tube feeding with modified schedule-a few hours in one-time at multiple time times of the day She is well aware about the risk and wants to accepted We will get nutrition assessment and can have oral intake as she has been doing it Plan to discharge her home with palliative care as before She is continuing with tube feeding and oral feeding as well with acceptance risk (2) Weakness: Plan: Weakness has been progressing likely secondary to progression of ALS Has been getting PT and OT Will need a few days to improve her weakness (3) ALS (amyotrophic lateral sclerosis): Plan: As above (4) Gastrostomy tube in place: Plan: Gastrostomy site is intact Patient does not want to be tube fed Discussed the consequences of not having any food orally and water through the tube She understands the consequences and is agreeable to have palliative care consult She will have a swallowing evaluationbarium swallow done today (5) GERD (gastroesophageal reflux disease): Plan: We will continue current medications for reflux (6) Immunosuppressed status: Plan: 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 Plan DVT ppx: - teds, scds, lovenox subq CODE: DNR/DNI Dispo: Fro home, likely to remain in the hospital x 2 days Admission and Anticipated Discharge Date Admission Date: June 24, 2022 Subjective 06/25/2022 The patient was seen and examined in telemetry unit She has ALS and with history of aspiration with the PEG tube in situ Admitted with increasing shortness of breath and worsening ALS symptoms She remains stable but she does not want to be fed through the PEG tube and she cannot take anything orally Palliative care consulted 06/26/2022 The patient was seen and examined in telemetry unit She complains to have headache and also bilateral leg pain She wishes to continue oral food as she has been doing for years and also willing to take modified form of PEG tube feeding She is well aware about the risk and she wants to take the risk Denies any other significant symptoms 06/27/2022 The patient was seen and examined in telemetry unit She has been stable but remains very weak and lethargic No more diarrhea Has been tolerating tube feeding Review of Systems Review of Systems: All systems reviewed and are unremarkable except as noted below Physical Exam Physical Exam: Lying in bed comfortably Constitutional: + ill appearing and average body habitus Eyes: PERRL, conjunctivae normal, anicteric sclerae ENMT: external ear and nose normal, oropharynx normal Neck: trachea midline, no thyromegaly Respiratory: no respiratory distress Auscultation: + diminished lung sounds and + crackles (Bibasally) Cardiovascular: Rate/Rhythm: regular rate and regular rhythm; not tachycardic Heart Sounds: normal S1, normal S2 and + murmur Extremities: no edema Gastrointestinal (Abdomen): Inspection/Auscultation: normal bowel sounds; abdomen not distended Percussion/Palpation: abdomen soft; abdomen nontender Musculoskeletal: No acute arthritis involving any joint Neurologic: Alert, awake and oriented x3 Weak legs due to ALS Lymphatic: no cervical or axillary lymphadenopathy Results & Data Results & Data ([facility]) Vital Signs (Past 12 Hours) Vital Signs Temp Pulse Pulse Resp BP BP Pulse Ox 06/27/22 11:00 69 18 131/78 98 06/27/22 09:00 69 06/27/22 09:00 06/27/22 08:00 60 06/27/22 07:41 36.7 C 61 16 122/69 94 06/27/22 03:57 36.5 C 65 18 126/69 92 O2 Del Method 06/27/22 11:00 06/27/22 09:00 06/27/22 09:00 Room Air 06/27/22 08:00 06/27/22 07:41 Room Air 06/27/22 03:57 Room Air Laboratory Results BMP 06/27/22 06:24 Creatinine 0.55 L Medications Administered Current Inpatient Medications Azathioprine (Azathioprine 50 Mg Tab) 50 mg PO QAM [facility] Stop: 07/25/22 08:59 Last Admin: 06/27/22 07:48 Dose: 50 mg Enoxaparin Sodium (Enoxaparin Inj 40 Mg/0.4 Ml Syr) 40 mg SQ QAM [facility] Stop: 07/25/22 08:59 Last Admin: 06/27/22 07:48 Dose: 40 mg Enteral Nutritional Formula (Peptamen 1.5 John 1,000 Ml Bag) 1,000 ml GT DAILY@1999 [facility]; Protocol Stop: 07/26/22 19:59 Last Admin: 06/26/22 20:53 Dose: 1,000 ml Guaifenesin (Guaifenesin 600 Mg Tabcr) 1,200 mg PO Q12 [facility] Stop: 07/24/22 20:59 Last Admin: 06/27/22 07:48 Dose: 1,200 mg Guaifenesin/Dextromethorphan (Guaifenesin/Dextrom Syrup 100mg/10mg 5ml Udc) 5 ml PO Q6H PRN PRN Reason: Cough Stop: 07/24/22 14:43 Acetaminophen (Ofirmev) 1,000 mg in 100 mls @ 400 mls/hr IV Q8H PRN PRN Reason: fever, pain Stop: 06/27/22 16:02 Last Infusion: 06/26/22 09:38 Dose: Infused Dextrose/Sodium Chloride (D5w And Nss) 1,000 mls @ 75 mls/hr IV .[id number] [facility] Stop: 07/24/22 16:14 Last Admin: 06/27/22 04:29 Dose: 75 mls/hr Pantoprazole Sodium 40 mg/ (Syringe) 10 mls @ 5 mls/min IV DAILY@1100 [facility] Stop: 07/25/22 10:59 Last Admin: 06/26/22 11:09 Dose: 5 mls/min Ampicillin Sodium/Sulbactam Sodium 3,000 mg/ Sodium Chloride 108 mls @ 216 mls/hr IV Q6H [facility]; Protocol Stop: 07/01/22 07:59 Loperamide HCl (Loperamide Hcl 2 Mg Cap) 2 mg PO Q4H PRN PRN Reason: Diarrhea Stop: 07/26/22 08:13 Last Admin: 06/26/22 08:52 Dose: 2 mg Mirtazapine (Mirtazapine Tab 15 Mg Tab) 30 mg PO HS [facility] Stop: 07/24/22 20:59 Last Admin: 06/26/22 20:17 Dose: 30 mg Miscellaneous (Stop Order) 1 each N/A DAILY@0800 [facility] Stop: 07/27/22 07:59 Last Admin: 06/27/22 09:10 Dose: 1 each Riluzole: Non- Formulary Patient's Own Med 1 each PO BID [facility] Stop: 07/24/22 20:59 Last Admin: 06/27/22 07:48 Dose: 50 mg Ondansetron HCl (Ondansetron Inj 2 Mg/Ml 2 Ml Vial) 4 mg IV Q4H PRN PRN Reason: Nausea And Vomiting Stop: 07/24/22 14:43 Pantoprazole Sodium (Pantoprazole 40 Mg Tab) 40 mg PO QAM [facility] Stop: 07/25/22 08:59 Senna/Docusate Sodium (Docusate Sodium/Senna 50/8.6mg Tab) 1 tab PO Q2D [facility] Stop: 07/24/22 14:59 Last Admin: 06/24/22 16:05 Dose: Not Given Sterile Water (Tube Feeding Water Flush) 120 ml GT Q4H [facility] Stop: 07/24/22 17:59 Last Admin: 06/27/22 09:11 Dose: Not Given Tramadol HCl (Tramadol Hcl 50 Mg Tablet) 25 mg PO Q4H PRN PRN Reason: Pain Stop: 07/26/22 09:31 Last Admin: 06/26/22 11:08 Dose: 25 mg
[2022-06-27] MEDS: PANTOprazole 40 MG in SYRINGE 0 ML IV SCH (16:20)
[2022-06-27] MEDS: AMPICILLIN/SULBACTAM SOD 3,000 MG in 0.9 % SODIUM CHLORIDE 100 ML IV SCH ×2 (16:20→20:14)
[2022-06-27] MEDS: PEPTAMEN 1.5 CAL 1,000 ML BAG GT SCH (20:28)
[2022-06-27] MEDS: MIRTAZAPINE TAB 15 MG TAB PO SCH (21:42)
[2022-06-28] MEDS: AMPICILLIN/SULBACTAM SOD 3,000 MG in 0.9 % SODIUM CHLORIDE 100 ML IV SCH ×4 (00:33→20:21)
[2022-06-28] MEDS: TUBE FEEDING WATER FLUSH GT SCH ×6 (00:33→21:07)
[2022-06-28 07:06] LABS: Basophils # (auto) 0.02 K/uL (0-0.2); Basophils % (auto) 0.5 %; Eosinophils # (auto) 0.19 K/uL (0-0.50); Eosinophils % (auto) 4.9 %; Hemoglobin 9.2 g/dl (12.0-16.0); Immature Granulocytes # (auto) 0.01 K/uL (0.00-0.02); Immature Granulocytes % (auto) 0.3 %; Lymphocytes # (auto) 0.52 K/uL (1.2-3.4); Lymphocytes % (auto) 13.4 %; Mean Corpuscular Hemoglobin 31.4 pg (25.0-34.0); Mean Corpuscular Hgb Conc 34.1 g/dL (32.0-36.0); Mean Corpuscular Volume 92.2 fL (80.0-100.0); Mean Platelet Volume 10.2 fL (9.4-12.3); Monocytes # (auto) 0.59 K/uL (0.24-0.82); Monocytes % (auto) 15.2 %; Neutrophils # (auto) 2.54 K/uL (1.4-6.5); Neutrophils % (auto) 65.7 %; Platelet Count 190 K/uL (130-400); RDW Coefficient of Variation 15.3 % (11.5-14.5); Red Blood Count 2.93 M/uL (3.93-5.22); White Blood Count 3.87 K/ul (4.8-10.8)
[2022-06-28 08:14] LABS: BUN Creatinine Ratio 15.7 (10-20); Calcium 8.5 mg/dl (8.5-10.1); Creatinine Clr Calc Pharmacy 67.1 ml/min; Est GFR (African American) 100.2 ml/min; Est GFR (Non-African American) 86.5 ml/min; Magnesium 1.8 mg/dl (1.7-2.4); Phosphorus 3.9 mg/dl (2.5-4.9); Potassium 3.7 mmol/L (3.5-5.1)
[2022-06-28] MEDS: guaiFENesin 600 MG TABCR PO SCH ×2 (08:45→20:22)
[2022-06-28] MEDS: ENOXAPARIN INJ 40 MG/0.4 ML SYR SQ SCH (08:45)
[2022-06-28] MEDS: RILUZOLE PO SCH ×2 (08:45→20:23)
[2022-06-28] MEDS: azaTHIOprine 50 MG TAB PO SCH (08:45)
[2022-06-28] MEDS: D5W AND NSS 1,000 ML IV SCH ×2 (09:11→20:19)
[2022-06-28] MEDS: PANTOprazole 40 MG in SYRINGE 0 ML IV SCH (12:36)
--- NOTE | 2022-06-28 15:10 | Hospitalist Progress Note ---
Date of Service June 28, 2022 Assessment & Plan (1) Aspiration pneumonia: Plan: 87 yo F with PMhx of PSVT/PAF, AAA, HTN, HLD, history of CVA as per records, autoimmune hepatitis on Imuran, ALS on Riluzole dx December 2021, gastrostomy tube placed in Mar 2022 due to weight loss, hx Schatzki's ring, aspiration risk, mood disorder, chronic anemia (baseline hemoglobin of 11), remote tobacco abuse. -Possible sepsis in an immunocompromised patient due to aspiration pneumonia/dental abscess -Chest x-ray was clear but CT of the abdomen and pelvis did show bibasilar infiltrate consistent with pneumonitis/aspiration pneumonia -Started on intravenous Zosyn and will continue -Sputum culture has been sent - Wears 2.5 L HS and with naps, currently not requiring O2, sats 94% at bedside, monitor - Influenza swab neg, MRSA swab neg, COVID neg - BCx x 2, lactic and procal ordered, first antibiotic IV was given prior to blood cultures being drawn. - BP is hypotensive in the ER, 85/48 after 2L NSS, will give additional 1 L NSS, monitor - Febrile per pt last evening, afebrile here - Continue antibiotic therapy with zosyn IV - Consult rehabilitation therapist for tube feeding recommendations as she currently is using Isosource 1.5 at 89ml/hr x 14 hrs during the day as she cannot tolerate it while lying down/asleep. Pt ultimately hates the tube feedings, and wants it removed. She understands that it was placed for weight loss and due to the progression of her ALS. Her weight has improved from March when the tube was placed from 100 lbs to 111lbs. She is working with palliative care as an outpatient and does not thinks she needs additional palliative care support. Pt is a DNR/DNI. - Tooth abscess requiring amoxicillin will be treated with zosyn, adjust abx course accordingly on discharge -Clinically better denies any significant symptom -Antibiotic changed to Unasyn IV while in the hospital and will change to Augmentin on discharge -Remains stable and will be discharged on Thursday Nutritional status Has had a long discussion with the patient She wants to continue oral feeding as she has been doing it for a long time She is also willing to have PEG tube feeding with modified schedule-a few hours in one-time at multiple time times of the day She is well aware about the risk and wants to accepted We will get nutrition assessment and can have oral intake as she has been doing it Plan to discharge her home with palliative care as before She is continuing with tube feeding and oral feeding as well with acceptance risk Has been tolerating current doses of enteral nutrition and will be discharged home on this regimen (2) Weakness: Plan: Weakness has been progressing likely secondary to progression of ALS Has been getting PT and OT Will need a few days to improve her weakness (3) ALS (amyotrophic lateral sclerosis): Plan: As above (4) Gastrostomy tube in place: Plan: Gastrostomy site is intact Patient does not want to be tube fed Discussed the consequences of not having any food orally and water through the tube She understands the consequences and is agreeable to have palliative care consult She will have a swallowing evaluationbarium swallow done today (5) GERD (gastroesophageal reflux disease): Plan: We will continue current medications for reflux (6) Immunosuppressed status: Plan: 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 Plan DVT ppx: - teds, scds, lovenox subq CODE: DNR/DNI Dispo: Fro home, likely to remain in the hospital x 2 days Admission and Anticipated Discharge Date Admission Date: June 24, 2022 Subjective 06/25/2022 The patient was seen and examined in telemetry unit She has ALS and with history of aspiration with the PEG tube in situ Admitted with increasing shortness of breath and worsening ALS symptoms She remains stable but she does not want to be fed through the PEG tube and she cannot take anything orally Palliative care consulted 06/26/2022 The patient was seen and examined in telemetry unit She complains to have headache and also bilateral leg pain She wishes to continue oral food as she has been doing for years and also willing to take modified form of PEG tube feeding She is well aware about the risk and she wants to take the risk Denies any other significant symptoms 06/27/2022 The patient was seen and examined in telemetry unit She has been stable but remains very weak and lethargic No more diarrhea Has been tolerating tube feeding 06/28/2020 The patient was seen and examined in telemetry unit She has been feeling much better and denies any significant symptoms Her diarrhea is controlled and has been tolerating the PEG tube feeding Review of Systems Review of Systems: All systems reviewed and are unremarkable except as noted below Physical Exam Physical Exam: Lying in bed comfortably Constitutional: + ill appearing and average body habitus Eyes: PERRL, conjunctivae normal, anicteric sclerae ENMT: external ear and nose normal, oropharynx normal Neck: trachea midline, no thyromegaly Respiratory: no respiratory distress Auscultation: + diminished lung sounds and + crackles (Bibasally) Cardiovascular: Rate/Rhythm: regular rate and regular rhythm; not tachycardic Heart Sounds: normal S1, normal S2 and + murmur Extremities: no edema Gastrointestinal (Abdomen): Inspection/Auscultation: normal bowel sounds; abdomen not distended Percussion/Palpation: abdomen soft; abdomen nontender Lymphatic: no cervical or axillary lymphadenopathy Results & Data Results & Data ([facility]) Vital Signs (Past 12 Hours) Vital Signs Temp Pulse Resp BP BP Pulse Ox O2 Del Method 06/28/22 11:26 36.7 C 62 20 131/67 95 Room Air 06/28/22 08:00 Room Air 06/28/22 07:31 36.6 C 59 L 18 137/65 97 Nasal Cannula 06/28/22 03:07 36.8 C 68 18 130/66 96 Nasal Cannula O2 Flow Rate 06/28/22 11:26 06/28/22 08:00 06/28/22 07:31 2 06/28/22 03:07 Laboratory Results Short CBC 06/28/22 Range/Units 06:30 WBC 3.87 L (4.8-10.8) K/ul Hgb 9.2 L (12.0-16.0) g/dl Hct 27.0 L (34.1-44.9) % Plt Count 190 (130-400) K/uL BMP 06/28/22 06:30 Sodium 140 Potassium 3.7 Chloride 107 Carbon Dioxide 27 BUN 8 Creatinine 0.51 L Glucose 112 H Calcium 8.5 Medications Administered Current Inpatient Medications Azathioprine (Azathioprine 50 Mg Tab) 50 mg PO QAM [facility] Stop: 07/25/22 08:59 Last Admin: 06/28/22 08:45 Dose: 50 mg Enoxaparin Sodium (Enoxaparin Inj 40 Mg/0.4 Ml Syr) 40 mg SQ QAM [facility] Stop: 07/25/22 08:59 Last Admin: 06/28/22 08:45 Dose: 40 mg Enteral Nutritional Formula (Peptamen 1.5 John 1,000 Ml Bag) 1,000 ml GT DAILY@2000 [facility]; Protocol Stop: 07/26/22 19:59 Last Admin: 06/27/22 20:28 Dose: 1,000 ml Guaifenesin (Guaifenesin 600 Mg Tabcr) 1,200 mg PO Q12 [facility] Stop: 07/24/22 20:59 Last Admin: 06/28/22 08:45 Dose: 1,200 mg Guaifenesin/Dextromethorphan (Guaifenesin/Dextrom Syrup 100mg/10mg 5ml Udc) 5 ml PO Q6H PRN PRN Reason: Cough Stop: 07/24/22 14:43 Dextrose/Sodium Chloride (D5w And Nss) 1,000 mls @ 75 mls/hr IV .[id number] [facility] Stop: 07/24/22 16:14 Last Admin: 06/28/22 09:11 Dose: 75 mls/hr Pantoprazole Sodium 40 mg/ (Syringe) 10 mls @ 5 mls/min IV DAILY@1100 [facility] Stop: 07/25/22 10:59 Last Admin: 06/28/22 12:36 Dose: 5 mls/min Ampicillin Sodium/Sulbactam Sodium 3,000 mg/ Sodium Chloride 108 mls @ 216 mls/hr IV Q6H [facility]; Protocol Stop: 07/01/22 07:59 Last Admin: 06/28/22 14:10 Dose: 216 mls/hr Loperamide HCl (Loperamide Hcl 2 Mg Cap) 2 mg PO Q4H PRN PRN Reason: Diarrhea Stop: 07/26/22 08:13 Last Admin: 06/26/22 08:52 Dose: 2 mg Mirtazapine (Mirtazapine Tab 15 Mg Tab) 30 mg PO HS [facility] Stop: 07/24/22 20:59 Last Admin: 06/27/22 21:42 Dose: 30 mg Miscellaneous (Stop Order) 1 each N/A DAILY@0800 [facility] Stop: 07/27/22 07:59 Last Admin: 06/28/22 09:11 Dose: 1 each Riluzole: Non- Formulary Patient's Own Med 1 each PO BID [facility] Stop: 07/24/22 20:59 Last Admin: 06/28/22 08:45 Dose: 50 mg Ondansetron HCl (Ondansetron Inj 2 Mg/Ml 2 Ml Vial) 4 mg IV Q4H PRN PRN Reason: Nausea And Vomiting Stop: 07/24/22 14:43 Pantoprazole Sodium (Pantoprazole 40 Mg Tab) 40 mg PO QAM [facility] Stop: 07/25/22 08:59 Senna/Docusate Sodium (Docusate Sodium/Senna 50/8.6mg Tab) 1 tab PO Q2D [facility] Stop: 07/24/22 14:59 Last Admin: 06/24/22 16:05 Dose: Not Given Sterile Water (Tube Feeding Water Flush) 120 ml GT Q4H [facility] Stop: 07/24/22 17:59 Last Admin: 06/28/22 14:45 Dose: Not Given Tramadol HCl (Tramadol Hcl 50 Mg Tablet) 25 mg PO Q4H PRN PRN Reason: Pain Stop: 07/26/22 09:31 Last Admin: 06/26/22 11:08 Dose: 25 mg
[2022-06-28] MEDS: PEPTAMEN 1.5 CAL 1,000 ML BAG GT SCH (20:17)
[2022-06-28] MEDS: MIRTAZAPINE TAB 15 MG TAB PO SCH (20:22)
[2022-06-28] MEDS: traMADol HCL 50 MG TABLET PO PRN (22:31)
[2022-06-29] MEDS: TUBE FEEDING WATER FLUSH GT SCH ×6 (01:34→22:52)
[2022-06-29] MEDS: AMPICILLIN/SULBACTAM SOD 3,000 MG in 0.9 % SODIUM CHLORIDE 100 ML IV SCH ×4 (01:34→20:34)
[2022-06-29] MEDS: azaTHIOprine 50 MG TAB PO SCH (08:33)
[2022-06-29] MEDS: ENOXAPARIN INJ 40 MG/0.4 ML SYR SQ SCH (08:33)
[2022-06-29] MEDS: guaiFENesin 600 MG TABCR PO SCH ×2 (08:33→20:19)
[2022-06-29] MEDS: RILUZOLE PO SCH ×2 (08:33→20:18)
[2022-06-29] MEDS: D5W AND NSS 1,000 ML IV SCH (09:57)
[2022-06-29] MEDS: PANTOprazole 40 MG in SYRINGE 0 ML IV SCH (12:21)
--- NOTE | 2022-06-29 12:59 | Hospitalist Progress Note ---
Date of Service June 29, 2022 Assessment & Plan (1) Aspiration pneumonia: Plan: 87 yo F with PMhx of PSVT/PAF, AAA, HTN, HLD, history of CVA as per records, autoimmune hepatitis on Imuran, ALS on Riluzole dx December 2021, gastrostomy tube placed in Mar 2022 due to weight loss, hx Schatzki's ring, aspiration risk, mood disorder, chronic anemia (baseline hemoglobin of 11), remote tobacco abuse. -Possible sepsis in an immunocompromised patient due to aspiration pneumonia/dental abscess -Chest x-ray was clear but CT of the abdomen and pelvis did show bibasilar infiltrate consistent with pneumonitis/aspiration pneumonia -Started on intravenous Zosyn and will continue -Sputum culture has been sent - Wears 2.5 L HS and with naps, currently not requiring O2, sats 94% at bedside, monitor - Influenza swab neg, MRSA swab neg, COVID neg - BCx x 2, lactic and procal ordered, first antibiotic IV was given prior to blood cultures being drawn. - BP is hypotensive in the ER, 85/48 after 2L NSS, will give additional 1 L NSS, monitor - Febrile per pt last evening, afebrile here - Continue antibiotic therapy with zosyn IV - Consult making machine catcher for tube feeding recommendations as she currently is using Isosource 1.5 at 89ml/hr x 14 hrs during the day as she cannot tolerate it while lying down/asleep. Pt ultimately hates the tube feedings, and wants it removed. She understands that it was placed for weight loss and due to the progression of her ALS. Her weight has improved from March when the tube was placed from 100 lbs to 111lbs. She is working with palliative care as an outpatient and does not thinks she needs additional palliative care support. Pt is a DNR/DNI. - Tooth abscess requiring amoxicillin will be treated with zosyn, adjust abx course accordingly on discharge -Clinically better denies any significant symptom -Antibiotic changed to Unasyn IV while in the hospital and will change to Augmentin on discharge -Remains stable and will be discharged on Thursday Nutritional status Has had a long discussion with the patient She wants to continue oral feeding as she has been doing it for a long time She is also willing to have PEG tube feeding with modified schedule-a few hours in one-time at multiple time times of the day She is well aware about the risk and wants to accepted We will get nutrition assessment and can have oral intake as she has been doing it Plan to discharge her home with palliative care as before She is continuing with tube feeding and oral feeding as well with acceptance risk Has been tolerating current doses of enteral nutrition and will be discharged home on this regimen Remains stable with nutritional status Discharge home tomorrow (2) Weakness: Plan: Weakness has been progressing likely secondary to progression of ALS Has been getting PT and OT Will need a few days to improve her weakness (3) ALS (amyotrophic lateral sclerosis): Plan: As above (4) Gastrostomy tube in place: Plan: Gastrostomy site is intact Patient does not want to be tube fed Discussed the consequences of not having any food orally and water through the tube She understands the consequences and is agreeable to have palliative care consult She will have a swallowing evaluationbarium swallow done today The tube remain in situ (5) GERD (gastroesophageal reflux disease): Plan: We will continue current medications for reflux (6) Immunosuppressed status: Plan: 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 Plan DVT ppx: - teds, scds, lovenox subq CODE: DNR/DNI Dispo: Fro home, likely to remain in the hospital x 2 days Admission and Anticipated Discharge Date Admission Date: June 24, 2022 Subjective 06/25/2022 The patient was seen and examined in telemetry unit She has ALS and with history of aspiration with the PEG tube in situ Admitted with increasing shortness of breath and worsening ALS symptoms She remains stable but she does not want to be fed through the PEG tube and she cannot take anything orally Palliative care consulted 06/26/2022 The patient was seen and examined in telemetry unit She complains to have headache and also bilateral leg pain She wishes to continue oral food as she has been doing for years and also willing to take modified form of PEG tube feeding She is well aware about the risk and she wants to take the risk Denies any other significant symptoms 06/27/2022 The patient was seen and examined in telemetry unit She has been stable but remains very weak and lethargic No more diarrhea Has been tolerating tube feeding 06/28/2020 The patient was seen and examined in telemetry unit She has been feeling much better and denies any significant symptoms Her diarrhea is controlled and has been tolerating the PEG tube feeding 06/29/2022 Patient was seen and examined in telemetry unit She remains stable and denies any significant symptoms She has been feeling a little bit better Review of Systems Review of Systems: All systems reviewed and are unremarkable except as noted below Physical Exam Physical Exam: Lying in bed comfortably Constitutional: + ill appearing and average body habitus Eyes: PERRL, conjunctivae normal, anicteric sclerae ENMT: external ear and nose normal, oropharynx normal Neck: trachea midline, no thyromegaly Respiratory: no respiratory distress Auscultation: + diminished lung sounds and + crackles (Bibasally) Cardiovascular: Rate/Rhythm: regular rate and regular rhythm; not tachycardic Heart Sounds: normal S1, normal S2 and + murmur Extremities: no edema Gastrointestinal (Abdomen): Inspection/Auscultation: normal bowel sounds; abdomen not distended Percussion/Palpation: abdomen soft; abdomen nontender Musculoskeletal: No acute arthritis in any joint Neurologic: Alert, awake and oriented x3. Has ALS with weak legs Lymphatic: no cervical or axillary lymphadenopathy Results & Data Results & Data ([facility]) Vital Signs (Past 12 Hours) Vital Signs Temp Pulse Pulse Resp BP Pulse Ox O2 Del Method 06/29/22 11:29 36.3 C L 70 20 148/71 H 96 Room Air 06/29/22 08:00 59 L 06/29/22 07:28 36.5 C 62 18 125/69 96 Nasal Cannula 06/29/22 02:52 36.6 C 70 18 156/73 H 95 Nasal Cannula O2 Flow Rate 06/29/22 11:29 06/29/22 08:00 06/29/22 07:28 2 06/29/22 02:52 Medications Administered Current Inpatient Medications Azathioprine (Azathioprine 50 Mg Tab) 50 mg PO QAM [facility] Stop: 07/25/22 08:59 Last Admin: 06/29/22 08:33 Dose: 50 mg Enoxaparin Sodium (Enoxaparin Inj 40 Mg/0.4 Ml Syr) 40 mg SQ QAM [facility] Stop: 07/25/22 08:59 Last Admin: 06/29/22 08:33 Dose: 40 mg Enteral Nutritional Formula (Peptamen 1.5 John 1,000 Ml Bag) 1,000 ml GT DAILY@1999 [facility]; Protocol Stop: 07/26/22 19:59 Last Admin: 06/28/22 20:17 Dose: 1,000 ml Guaifenesin (Guaifenesin 600 Mg Tabcr) 1,200 mg PO Q12 [facility] Stop: 07/24/22 20:59 Last Admin: 06/29/22 08:33 Dose: 1,200 mg Guaifenesin/Dextromethorphan (Guaifenesin/Dextrom Syrup 100mg/10mg 5ml Udc) 5 ml PO Q6H PRN PRN Reason: Cough Stop: 07/24/22 14:43 Last Admin: 06/29/22 00:05 Dose: 5 ml Dextrose/Sodium Chloride (D5w And Nss) 1,000 mls @ 75 mls/hr IV .[id number] [facility] Stop: 07/24/22 16:14 Last Admin: 06/29/22 09:57 Dose: 75 mls/hr Pantoprazole Sodium 40 mg/ (Syringe) 10 mls @ 5 mls/min IV DAILY@1100 [facility] Stop: 07/25/22 10:59 Last Admin: 06/29/22 12:21 Dose: 5 mls/min Ampicillin Sodium/Sulbactam Sodium 3,000 mg/ Sodium Chloride 108 mls @ 216 mls/hr IV Q6H [facility]; Protocol Stop: 07/01/22 07:59 Last Infusion: 06/29/22 09:57 Dose: Infused Loperamide HCl (Loperamide Hcl 2 Mg Cap) 2 mg PO Q4H PRN PRN Reason: Diarrhea Stop: 07/26/22 08:13 Last Admin: 06/26/22 08:52 Dose: 2 mg Mirtazapine (Mirtazapine Tab 15 Mg Tab) 30 mg PO HS [facility] Stop: 07/24/22 20:59 Last Admin: 06/28/22 20:22 Dose: 30 mg Miscellaneous (Stop Order) 1 each N/A DAILY@0800 [facility] Stop: 07/27/22 07:59 Last Admin: 06/29/22 08:32 Dose: 1 each Riluzole: Non- Formulary Patient's Own Med 1 each PO BID [facility] Stop: 07/24/22 20:59 Last Admin: 06/29/22 08:33 Dose: 50 mg Ondansetron HCl (Ondansetron Inj 2 Mg/Ml 2 Ml Vial) 4 mg IV Q4H PRN PRN Reason: Nausea And Vomiting Stop: 07/24/22 14:43 Pantoprazole Sodium (Pantoprazole 40 Mg Tab) 40 mg PO QAM [facility] Stop: 07/25/22 08:59 Senna/Docusate Sodium (Docusate Sodium/Senna 50/8.6mg Tab) 1 tab PO Q2D [facility] Stop: 07/24/22 14:59 Last Admin: 06/24/22 16:05 Dose: Not Given Sterile Water (Tube Feeding Water Flush) 120 ml GT Q4H [facility] Stop: 07/24/22 17:59 Last Admin: 06/29/22 12:21 Dose: Not Given Tramadol HCl (Tramadol Hcl 50 Mg Tablet) 25 mg PO Q4H PRN PRN Reason: Pain Stop: 07/26/22 09:31 Last Admin: 06/28/22 22:31 Dose: 25 mg
[2022-06-29] MEDS: PEPTAMEN 1.5 CAL 1,000 ML BAG GT SCH (20:18)
[2022-06-29] MEDS: MIRTAZAPINE TAB 15 MG TAB PO SCH (20:19)
[2022-06-30] MEDS: AMPICILLIN/SULBACTAM SOD 3,000 MG in 0.9 % SODIUM CHLORIDE 100 ML IV SCH ×3 (01:50→13:44)
[2022-06-30] MEDS: TUBE FEEDING WATER FLUSH GT SCH ×4 (01:52→13:46)
[2022-06-30 07:44] LABS: Basophils # (auto) 0.05 K/uL (0-0.2); Basophils % (auto) 1.2 %; Eosinophils # (auto) 0.25 K/uL (0-0.50); Hematocrit (blood only) 29.4 % (34.1-44.9); Hemoglobin 9.9 g/dl (12.0-16.0); Immature Granulocytes # (auto) 0.03 K/uL (0.00-0.02); Immature Granulocytes % (auto) 0.7 %; Lymphocytes # (auto) 0.71 K/uL (1.2-3.4); Lymphocytes % (auto) 17.1 %; Mean Corpuscular Hemoglobin 31.1 pg (25.0-34.0); Mean Corpuscular Hgb Conc 33.7 g/dL (32.0-36.0); Mean Corpuscular Volume 92.5 fL (80.0-100.0); Mean Platelet Volume 10.5 fL (9.4-12.3); Monocytes # (auto) 0.65 K/uL (0.24-0.82); Monocytes % (auto) 15.6 %; Neutrophils # (auto) 2.47 K/uL (1.4-6.5); Neutrophils % (auto) 59.4 %; Platelet Count 224 K/uL (130-400); RDW Coefficient of Variation 14.6 % (11.5-14.5); RDW Standard Deviation 50.4 fL (36.4-46.3); Red Blood Count 3.18 M/uL (3.93-5.22); White Blood Count 4.16 K/ul (4.8-10.8)
[2022-06-30] MEDS: azaTHIOprine 50 MG TAB PO SCH (08:05)
[2022-06-30] MEDS: ENOXAPARIN INJ 40 MG/0.4 ML SYR SQ SCH (08:07)
[2022-06-30] MEDS: guaiFENesin 600 MG TABCR PO SCH ×2 (08:09→11:16)
[2022-06-30] MEDS: RILUZOLE PO SCH (08:10)
[2022-06-30 08:15] LABS: Calcium 8.8 mg/dl (8.5-10.1); Creatinine Clr Calc Pharmacy 59.4 ml/min; Est GFR (African American) 97.7 ml/min; Est GFR (Non-African American) 84.3 ml/min; Magnesium 1.8 mg/dl (1.7-2.4); Phosphorus 3.2 mg/dl (2.5-4.9); Potassium 3.8 mmol/L (3.5-5.1)
[2022-06-30] MEDS: PANTOprazole 40 MG in SYRINGE 0 ML IV SCH (11:12)
--- NOTE | 2022-06-30 12:44 | Hospitalist Progress Note ---
Date of Service June 30, 2022 Assessment & Plan (1) Aspiration pneumonia: Plan: 87 yo F with PMhx of PSVT/PAF, AAA, HTN, HLD, history of CVA as per records, autoimmune hepatitis on Imuran, ALS on Riluzole dx December 2021, gastrostomy tube placed in Mar 2022 due to weight loss, hx Schatzki's ring, aspiration risk, mood disorder, chronic anemia (baseline hemoglobin of 11), remote tobacco abuse. -Possible sepsis in an immunocompromised patient due to aspiration pneumonia/dental abscess -Chest x-ray was clear but CT of the abdomen and pelvis did show bibasilar infiltrate consistent with pneumonitis/aspiration pneumonia -Started on intravenous Zosyn and will continue -Sputum culture has been sent - Wears 2.5 L HS and with naps, currently not requiring O2, sats 94% at bedside, monitor - Influenza swab neg, MRSA swab neg, COVID neg - BCx x 2, lactic and procal ordered, first antibiotic IV was given prior to blood cultures being drawn. - BP is hypotensive in the ER, 85/48 after 2L NSS, will give additional 1 L NSS, monitor - Febrile per pt last evening, afebrile here - Continue antibiotic therapy with zosyn IV - Consult signal supervisor for tube feeding recommendations as she currently is using Isosource 1.5 at 89ml/hr x 14 hrs during the day as she cannot tolerate it while lying down/asleep. Pt ultimately hates the tube feedings, and wants it removed. She understands that it was placed for weight loss and due to the progression of her ALS. Her weight has improved from March when the tube was placed from 100 lbs to 111lbs. She is working with palliative care as an outpatient and does not thinks she needs additional palliative care support. Pt is a DNR/DNI. - Tooth abscess requiring amoxicillin will be treated with zosyn, adjust abx course accordingly on discharge -Clinically better denies any significant symptom -Antibiotic changed to Unasyn IV while in the hospital and will change to Augmentin on discharge -Antibiotic course is finished and she will have her usual antibiotic at home with ampicillin -Remains totally asymptomatic and will be discharged home this afternoon Nutritional status Has had a long discussion with the patient She wants to continue oral feeding as she has been doing it for a long time She is also willing to have PEG tube feeding with modified schedule-a few hours in one-time at multiple time times of the day She is well aware about the risk and wants to accepted We will get nutrition assessment and can have oral intake as she has been doing it Plan to discharge her home with palliative care as before She is continuing with tube feeding and oral feeding as well with acceptance r pura Has been tolerating current doses of enteral nutrition and will be discharged home on this regimen Remains stable with nutritional status New tube feeding has been prescribed and the patient has been tolerating the PT well (2) Weakness: Plan: Weakness has been progressing likely secondary to progression of ALS Has been getting PT and OT Will need a few days to improve her weakness (3) ALS (amyotrophic lateral sclerosis): Plan: As above Strongly advised to give appointment with the ALS clinic (4) Gastrostomy tube in place: Plan: Gastrostomy site is intact Patient does not want to be tube fed Discussed the consequences of not having any food orally and water through the tube She understands the consequences and is agreeable to have palliative care consult She will have a swallowing evaluationbarium swallow done today The tube remain in situ (5) GERD (gastroesophageal reflux disease): Plan: We will continue current medications for reflux (6) Immunosuppressed status: Plan: 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 Plan DVT ppx: - teds, scds, lovenox subq CODE: DNR/DNI Dispo: Fro home, likely to remain in the hospital x 2 days Admission and Anticipated Discharge Date Admission Date: June 24, 2022 Subjective 06/25/2022 The patient was seen and examined in telemetry unit She has ALS and with history of aspiration with the PEG tube in situ Admitted with increasing shortness of breath and worsening ALS symptoms She remains stable but she does not want to be fed through the PEG tube and she cannot take anything orally Palliative care consulted 06/26/2022 The patient was seen and examined in telemetry unit She complains to have headache and also bilateral leg pain She wishes to continue oral food as she has been doing for years and also willing to take modified form of PEG tube feeding She is well aware about the risk and she wants to take the risk Denies any other significant symptoms 06/27/2022 The patient was seen and examined in telemetry unit She has been stable but remains very weak and lethargic No more diarrhea Has been tolerating tube feeding 06/28/2020 The patient was seen and examined in telemetry unit She has been feeling much better and denies any significant symptoms Her diarrhea is controlled and has been tolerating the PEG tube feeding 06/29/2022 Patient was seen and examined in telemetry unit She remains stable and denies any significant symptoms She has been feeling a little bit better 06/30/2022 The patient was seen and examined in telemetry unit She has been feeling much better and remained stable She will be discharged home this afternoon Denies any symptoms as of today Review of Systems Review of Systems: All systems reviewed and are unremarkable except as noted below Physical Exam Physical Exam: Lying in bed comfortably Constitutional: + ill appearing and average body habitus Eyes: PERRL, conjunctivae normal, anicteric sclerae ENMT: external ear and nose normal, oropharynx normal Neck: trachea midline, no thyromegaly Respiratory: no respiratory distress Auscultation: + diminished lung sounds and + crackles (Bibasally) Cardiovascular: Rate/Rhythm: regular rate and regular rhythm; not tachycardic Heart Sounds: normal S1, normal S2 and + murmur Extremities: no edema Gastrointestinal (Abdomen): Inspection/Auscultation: normal bowel sounds; abdomen not distended Percussion/Palpation: abdomen soft; abdomen nontender Musculoskeletal: No acute arthritis involving any joint Neurologic: normal touch/pain/proprioception, moves all extremities and + focal motor deficit (Has weak legs bilaterally) Lymphatic: no cervical or axillary lymphadenopathy Results & Data Results & Data ([facility]) Vital Signs (Past 12 Hours) Vital Signs Temp Pulse Resp BP BP Pulse Ox O2 Del Method 06/30/22 07:39 36.6 C 64 18 150/72 H 92 Room Air 06/30/22 02:32 36.4 C L 65 18 144/74 H 96 Nasal Cannula O2 Flow Rate 06/30/22 07:39 06/30/22 02:32 2.5 Laboratory Results Short CBC 06/30/22 Range/Units 06:50 WBC 4.16 L (4.8-10.8) K/ul Hgb 9.9 L (12.0-16.0) g/dl Hct 29.4 L (34.1-44.9) % Plt Count 224 (130-400) K/uL BMP 06/30/22 06:50 Sodium 137 Potassium 3.8 Chloride 105 Carbon Dioxide 26 BUN 11 Creatinine 0.55 L Glucose 110 H Calcium 8.8
--- NOTE | 2022-07-01 07:20 | Discharge Summary ---
Date of Service June 30, 2022 Admission HPI Per Admitting Provider This is an 87 yo F with PMhx of PSVT/PAF, AAA, HTN, HLD, history of CVA as per records, autoimmune hepatitis on Imuran, ALS on Riluzole dx December 2021, gastrostomy tube placed in Mar 2022 due to weight loss, hx Schatzki's ring, aspiration risk, mood disorder, chronic anemia (baseline hemoglobin of 11), remote tobacco abuse. PT reports that she "feels so bad, like shes been shot in the head, from the top of her head to her her toes she's in pain". She has significant pain all over her body. A speech therapist has been working with her for months due to difficulty swallowing and progression of ALS which was diagnosed in December 2021. Amazingly, Tay has been able to live at home independently, walks with walker, and does the majority of ADLs herself. Speech therapy has her taking bite sized bites and on thin liquids. 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 Last night she started coughing very hard, bringing up "buckets" of mucous which was clear/arenas. She thinks the color last night was the same as her tube feedings, she coughed it out her mouth and out her nose. Then she felt hot and had chills and knew she had a fever, but couldn't find the thermometer. Last evening she also had some chest pain with the coughing, which since is resolved. At home she wears supplemental O2 2.5 HS and with naps. Last night she had to sleep with her bed up in the highest p osition last evening, and at baseline with 2 pillows. When doing the 14 hr long tube feeds during the day, she feels like her abdomen is bloated and distended, she has belly pain worse after the feedings. She is tired of taking the tube feeds and wants to stop them, and has palliative care discussions and excellent nursing team working with her. She also mentions having a tooth abscess and saw her PCP yesterday. When she had a regular dental cleaning it was noticed last month, located under her bridge on the bottom left, and was supposed to start taking amoxicillin for it but had not picked it up yet. She was also given a script for and glycopyrolate for congestion and increased secretions. She uses a walker at baseline and lives by herself, her family visits her frequently, and a neighbor who helps at home. There are nurses that come at least once per week. Baseline tube feeds are with Isosource 1.5 at 89ml/hr for 14 hrs during the day, with saline water flushes as scheduled by the automatic pump. She cannot use feeds overnight due to ALS, gastric reflux, and risk of aspiration. Admission Exam Per Admitting Provider Physical Exam: General: awake, alert, no apparent distress Head: Normocephalic, atraumatic ENT: PERRL, EOMI, no pharyngeal exudate, mucous membranes moist Chest: Clear to auscultation, on room air, no adventitious breath sounds Cardiac: Regular rate and rhythm, no murmur, no JVD, normal peripheral pulses, good capillary refill Abdominal: NABS x 4 quadrants, soft, nondistended, nontender to palpation, no rebound or guarding Extremities: Normal inspection, no peripheral edema or erythema, calfs nontender to palpation Psych: Normal mood and affect Neuro: AAO x 3, strength intact bilaterally and rated 5/5, no motor deficits, speech is clear, no peripheral sensory deficits Principal Diagnosis Possible aspiration pneumonia, ALS status post gastrotomy Place in situ, Discharge Exam Lying in bed comfortably Constitutional + ill appearing and average body habitus Eyes PERRL, conjunctivae normal, anicteric sclerae ENMT external ear and nose normal, oropharynx normal Neck trachea midline, no thyromegaly Respiratory no respiratory distress Auscultation: + diminished lung sounds and + crackles (Bibasally) Cardiovascular Rate/Rhythm: regular rate and regular rhythm; not tachycardic Heart Sounds: normal S1, normal S2 and + murmur Extremities: no edema Gastrointestinal (Abdomen) Inspection/Auscultation: normal bowel sounds; abdomen not distended Percussion/Palpation: abdomen soft; abdomen nontender Neurologic normal touch/pain/proprioception, moves all extremities and + focal motor deficit (Has weak legs bilaterally) Lymphatic no cervical or axillary lymphadenopathy Discharge Data Allergies Allergy/AdvReac Type Severity Reaction Status Date / Time Corticosteroids Allergy Intermediate STERIOD Verified 06/24/22 11:50 (Glucocorticoids) INJECTIONS - FLUSHING AND BLOTCHING REDNESS, ITCHY chlorhexidine Allergy Mild RASH Verified 06/24/22 11:50 Iodinated Contrast Media Allergy Mild Rash/Hives Verified 06/24/22 11:50 morphine Allergy Mild RASH Verified 06/24/22 11:50 oxycodone Allergy Mild PERCOCET - Verified 06/24/22 11:50 ITCHING OF ARMS,SHOULDERS,GROGGY dipyridamole Allergy Unknown reaction Verified 06/24/22 11:50 unknown duloxetine AdvReac Intermediate SEDATION & Verified 06/24/22 11:50 BAD DREAMS codeine AdvReac Mild GI UPSET Verified 06/24/22 11:50 mepivacaine AdvReac Unknown pt states Verified 06/24/22 11:50 "just didnt work" Consultations 06/24/22 11:28 ED Decision to Admit Stat 06/25/22 12:35 Consult Palliative Care Routine Ordered Studies 06/24/22 08:36 CT abd pelvis wo con Stat CT lumbar spine wo con Stat 06/25/22 14:00 FL video swallow Routine Hospital Course (1) Aspiration pneumonia: 87 yo F with PMhx of PSVT/PAF, AAA, HTN, HLD, history of CVA as per records, autoimmune hepatitis on Imuran, ALS on Riluzole dx December 2021, gastrostomy tube placed in Mar 2022 due to weight loss, hx Schatzki's ring, aspiration risk, mood disorder, chronic anemia (baseline hemoglobin of 11), remote tobacco abuse. -Possible sepsis in an immunocompromised patient due to aspiration pneumonia/dental abscess -Chest x-ray was clear but CT of the abdomen and pelvis did show bibasilar infiltrate consistent with pneumonitis/aspiration pneumonia -Started on intravenous Zosyn and will continue -Sputum culture has been sent - Wears 2.5 L HS and with naps, currently not requiring O2, sats 94% at bedside, monitor - Influenza swab neg, MRSA swab neg, COVID neg - BCx x 2, lactic and procal ordered, first antibiotic IV was given prior to blood cultures being drawn. - BP is hypotensive in the ER, 85/48 after 2L NSS, will give additional 1 L NSS, monitor - Febrile per pt last evening, afebrile here - Continue antibiotic therapy with zosyn IV - Consult lens grinder for tube feeding recommendations as she currently is using Isosource 1.5 at 89ml/hr x 14 hrs during the day as she cannot tolerate it while lying down/asleep. Pt ultimately hates the tube feedings, and wants it removed. She understands that it was placed for weight loss and due to the progression of her ALS. Her weight has improved from March when the tube was placed from 100 lbs to 111lbs. She is working with palliative care as an outpatient and does not thinks she needs additional palliative care support. Pt is a DNR/DNI. - Tooth abscess requiring amoxicillin will be treated with zosyn, adjust abx course accordingly on discharge -Clinically better denies any significant symptom -Antibiotic changed to Unasyn IV while in the hospital and will change to Augmentin on discharge -Antibiotic course is finished and she will have her usual antibiotic at home with ampicillin -Remains totally asymptomatic and will be discharged home this afternoon Nutritional status Has had a long discussion with the patient She wants to continue oral feeding as she has been doing it for a long time She is also willing to have PEG tube feeding with modified schedule-a few hours in one-time at multiple time times of the day She is well aware about the risk and wants to accepted We will get nutrition assessment and can have oral intake as she has been doing it Plan to discharge her home with palliative care as before She is continuing with tube feeding and oral feeding as well with acceptance risk Has been tolerating current doses of enteral nutrition and will be discharged home on this regimen Remains stable with nutritional status New tube feeding has been prescribed and the patient has been tolerating the PT well (2) Weakness: Weakness has been progressing likely secondary to progression of ALS Has been getting PT and OT Will need a few days to improve her weakness (3) ALS (amyotrophic lateral sclerosis): As above Strongly advised to give appointment with the ALS clinic (4) Gastrostomy tube in place: Gastrostomy site is intact Patient does not want to be tube fed Discussed the consequences of not having any food orally and water through the tube She understands the consequences and is agreeable to have palliative care consult She will have a swallowing evaluationbarium swallow done today The tube remain in situ (5) GERD (gastroesophageal reflux disease): We will continue current medications for reflux (6) Immunosuppressed status: 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 Plan DVT ppx: - teds, scds, lovenox subq CODE: DNR/DNI Dispo: Fro home, likely to remain in the hospital x 2 days Total Time Total Time Spent Total Time Spent (In Minutes): 35 minutes Discharge Plan Discharge Items Patient Disposition: Home - Home Health Services Reason For Visit: ASPIRATION PNEUMONIA Discharge Diagnosis: Possible aspiration pneumonia, ALS status post gastrotomy Place in situ, Condition on Discharge: Fair Activity: Resume your previous activity Non-emergency contact: Primary Care Provider Call non-emergency contact if: you have any medication questions and your symptoms worsen Follow-up/Referrals: Manish Roblero, [Primary Care Provider] - (Date & Time 07/03/2022 11:20 AM Provider Thalia Vizcaino MD Department Family [facility] ) Diet: Other - See Diet Comment Diet Comment: GTfeed, oral feeding as before with extreme precaution to avoid aspiration Addtl Attending Provider Instructions: Please take precaution to avoid fall Take your medications as advised Please keep appointment with your healthcare providers especially in management for ALS Pending Studies at Discharge: No Stand-Alone Forms: My Locket, Smoking Cessation Medications and DC Order Prescriptions: New Peptamen 1.5 0.068 gram- 1.5 kcal/mL Liquid 1,000 ml G-tube DAILY@1999 Qty: 1 0RF (DME) Tube Feeding Water Flush See Rx Instructions .ROUTE .MEDSUPPLY Qty: 1 1RF Rx Instructions: As directed Continued cyanocobalamin (vitamin B-12) [Vitamin B-12] 1,000 mcg Tablet 1,000 mcg PO QAM Qty: 30 0RF azathioprine [Imuran] 50 mg Tablet 50 mg PO QAM Qty: 30 0RF acetaminophen [Acetaminophen Extra Strength] 500 mg Tablet 1,000 mg PO Q8H PRN (Reason: Pain) Qty: 30 0RF pantoprazole 40 mg Tablet,Delayed Release (Dr/Ec) 40 mg PO QAM Qty: 30 0RF cholecalciferol (vitamin D3) [Vitamin D3] 1,000 unit Capsule 4,000 unit PO QAM Qty: 30 0RF sennosides-docusate sodium [Senokot-S] 8.6-50 mg tablet 1 tab PO Q OTHER DAY amoxicillin 500 mg capsule 500 mg PO QAM mirtazapine 30 mg tablet 30 mg PO HS riluzole 50 mg tablet 50 mg PO BID multivitamin with minerals Tablet 1 tab PO DAILY Discharge Orders: Discharge Order (Routine); Ordered 06/30/22 Ordered By: Citlali Hobbs Admission Data Admit Date/Time: 06/24/22 12:55 Attending Provider: Citlali Hobbs Admit Provider: Roseann Jimenez Primary Care Provider: Manish Roblero Other Providers: Roseann Jimenez ; Bobbi Gallego ; [place] Other Interventions: Discharge Summary Assessment (RN) Last Done: 06/30/22 13:33
== END 2022-06-30 15:37 | disposition home health service (06) | DRG 871 ==
LOC: ED 08:24 → SUATTDRO 12:55 → 2S 12:55

== ENCOUNTER 2024-01-13 16:24 | Inpatient (IN) ==
--- NOTE | 2024-01-13 16:32 | ED Triage Note ---
Date of Service January 13, 2024 Provider in Triage Author: Penelope Chong History of Present Illness This patient was briefly evaluated while in triage. An abbreviated physical exam was performed. This patient is a 88-year-old Female who presents to the ED for evaluation of chest pain. She has had a cough since this morning. Coughing so hard that she is vomiting up clear liquids. Her chest now hurts and her throat palmer. Having a hard time breathing. Her family is concerned that she may have aspirated and has pneumonia. No fevers. She wasn't feeling well last night, but otherwise has been OK. Pulse ox was in the mid to higher 80's. 2L of O2 by NC was placed and she was made a priority for the next available bed. Physical Exam GENERAL: Non-toxic and in no acute distress. HEENT: Pupils equal. No obvious scleral icterus. HEART: Regular rate and rhythm. LUNGS: Wheezes and rhonchi throughout with possible rales. Wet cough. Mild accessory muscle use without retractions. ABDOMEN: Soft, non-tender. NEURO: Alert and oriented. No obvious neurological deficits on quick neuro exam. Initial orders for labs and / or imaging were placed and patient was placed in the waiting area until a bed is available. Please see further documentation for the full ED course.
--- NOTE | 2024-01-13 16:49 | Emergency Department Note ---
Impression & Plan Aspiration pneumonia, ALS (amyotrophic lateral sclerosis), Gastrostomy tube in place ED Provider Note NAME: TAYA BOLDEN AGE: 88 SEX: F : 1935 ARRIVES VIA: Walk-In INFORMANT: Patient, Daughter, triage note ED PROVIDER(S): Jose C Ackerman MD CHIEF COMPLAINT: Lethargy, weakness, breathing difficulty MEDICAL DECISION MAKING: Patient presents due to concern for possible pneumonia and increased work of breathing. IV was established and blood work was obtained. Patient did have a white count of 13. Patient was ordered empiric IV Zosyn. Hemoglobin of 10.6 with a normal platelet count. Kidney function is unremarkable with normal electrolytes. BNP elevated at 282 with a troponin of 84.5. Bio fire negative. Patient's chest x-ray shows cardiomegaly but no obvious pneumonia. I did speak with the on-call hospital service Herlinda Babb PA-C and the patient was admitted by Dr. Banegas. Critical Care: I have personally spent 35 minutes of critical care time in direct management of this patient. This includes bedside care, interpretation of diagnostic studies, and testing, discussion with consultants, patient, and family members, and other require inpatient management activities. This 35 minutes is in excess of all separately billable procedures. Discussion w/ other healthcare providers: TOM Hensley Dr. inpatient medicine service Prior /Outside records reviewed: None Differential diagnosis: Infection, dehydration, metabolic abnormality, hypo/hyperglycemia, electrolyte imbalance, anemia, UTI, pneumonia, thyroid dysfunction among others were considered. Diagnostics, as interpreted by me: ECG: Normal sinus rhythm, rate of 78, normal intervals, left axis deviation no ST elevations Cardiac monitoring: An order was placed for continuous cardiac monitoring. The monitor shows a rate of 77 with sinus rhythm. Patient was placed on pulse oximetry Medical decision rules: None Imaging studies: I informally interpreted the patient's chest x-ray does not show obvious pneumothorax with formal report to follow. HPI: Patient presents with daughter at bedside due to concern for worsening lethargy difficulty with breathing and possible pneumonia. Patient was noted at dinner last night to be a bit more lethargic decreased appetite but was able to eat a soup and a sandwich. Patient's daughter states that this morning she seemed to look improved but then returned to go to it 2:00 appointment for shoulder injection and seemed to appear much worse and thus presented here. Patient does have a known history of prior ALS and is currently not on any active treatments. Patient does have a feeding tube for which she uses for medications but does not typically place any food through the feeding tube. PAST MEDICAL HISTORY: See Below PAST SURGICAL HISTORY: See Below SOCIAL HISTORY: See Below HOME MEDICATIONS: See Below ALLERGIES: See Below VITALS: See Below PHYSICAL EXAMINATION: GENERAL: Mildly ill in appearance. Nasal cannula in place EYE EXAM: Normal conjunctiva. PERRL, no anisocoria and EOM's grossly intact w/o pain. OROPHARYNX: Moist mucus membranes, grossly normal dentition. NECK: Trachea midline, no stridor. Supple, no nuchal rigidity, no adenopathy, non-tender. No signs of meningismus. FROM of the neck with good chin to chest and neck extension. LUNGS: Coarse sounds throughout. Normal chest wall mechanics. HEART: NSR, no MRG. ABDOMEN: Abdomen soft, non-tender, G-tube in place in left abdomen,no masses, no rebound or guarding. BACK: No CVA TTP. SKIN: No rashes and no bruising. UPPER EXTREMITIES: Upper extremities are grossly normal. LOWER EXTREMITIES: Grossly normal, no edema. NEURO EXAM: A&O x3, cranial nerves II-XII grossly intact, normal speech, moves all 4 extremities. Past Med/Surg History Problem List (Updated 01/19/24 @ 22:46 by Jose C Ackerman MD) Palliative care by specialist Aspiration into airway Dyspnea and respiratory abnormalities Aspiration pneumonitis Sialorrhea Weakness generalized Advanced care planning/counseling discussion Palliative care encounter Multifocal pneumonia (Acute) ALS (amyotrophic lateral sclerosis) (Acute) Vomiting (Acute) Immunosuppressed status Gastrostomy tube in place (Acute) ALS (amyotrophic lateral sclerosis) Aspiration pneumonia (Acute) Hypokalemia DVT prophylaxis Myasthenia gravis Autoimmune hepatitis "MEDICATION INDUCED"= ON IMURAN Syncope and collapse Weakness Fall (Acute) Left ankle sprain (Acute) Right-sided chest wall pain (Acute) Right sided abdominal pain (Acute) Encounter for pre-operative examination Dysphagia Diverticulosis (Chronic) GERD (gastroesophageal reflux disease) (Chronic) Dyslipidemia (Chronic) History of peptic ulcer disease (Chronic) Hiatal hernia (Chronic) Anxiety (Chronic) H/O: CVA (cerebrovascular accident) (Chronic) "2011 per patient" Spondylolisthesis, lumbar region (Chronic) Left hip pain (Acute) Ambulatory dysfunction (Acute) S/P hip replacement (Chronic) "bilateral" S/P cataract surgery (Chronic) H/O blepharoplasty (Chronic) H/O hernia repair (Chronic) H/O esophagogastroduodenoscopy (Chronic) H/O esophagogastroduodenoscopy (Chronic) "08/06/15- Schatzki's ring, small hiatal hernia, gastritis" Fall Humerus fracture Palpitations Encounter for pre-operative examination Encounter for pre-operative examination Encounter for pre-operative examination Dysphagia Dysphagia Medical History History of anesthesia reaction difficulty waking Anemia CHRONIC Nocturnal hypoxemia 2L O2 HS PER PT SVT (supraventricular tachycardia) PT UNSURE Valvular heart disease MILD MR/MODERATE TR PT UNSURE Hip pain PT REPORTS STIMULATOR HAS BEEN REMOVED History of esophageal dilatation MULTIPLE 2/2 SCHATZKI RING Osteoarthritis Hiatal hernia GERD (gastroesophageal reflux disease) Anxiety Depression Stroke 2011; RESIDUAL BALANCE/HEARING ISSUES; PARTIAL EPIGLOTTIS "PARALYSIS" Paroxysmal atrial fibrillation ? DATE OF DX - LONG TIME AGO PER PT ; PT UNSURE DETAILS - NO BLOOD THINNER Surgical History History of surgery 07/2018--removal of spinal cord stimulator Status post insertion of spinal cord stimulator HX History of tonsillectomy and adenoidectomy H/O neck surgery "plate in back of my neck"--normal ROM moving neck front and back Fusion of spine LUMBAR X2 History of total hip arthroplasty B/L H/O elbow replacement RIGHT History of hysterectomy CARRI WITH BSO History of esophagogastroduodenoscopy (EGD) most recent 03/22/21 [place] History of colonoscopy History of appendectomy History of cholecystectomy History of cataract surgery BILATERAL Family History Mother Family history of diabetes mellitus Sister Family history of diabetes mellitus Daughter Cancer COLON/LYMPHOMA Other No family history of adverse response to anesthesia Social History Smoking Status: Former smoker Tobacco Type: Cigarettes Second Hand Exposure: No; Do You Dip or Chew Tobacco: No; Hx Alcohol Use: Yes Alcohol type: wine Hx Substance Use: No Preferred Language: Tajik Communication Ability: Effective Splicer Apprentice Required: No Beliefs That Will Affect Care: Buddhist Buddhist Beliefs: Methodist marital status: / Current Living Situation: Alone Current Living Situation Comment: home alone, has home health nursing once/wk Feels Safe at Home: Yes Assistive Devices: Cane, Oxygen - at Night and Walker Allergies Allergies Allergy/AdvReac Type Severity Reaction Status Date / Time chlorhexidine Allergy Intermediate RASH Verified 04/21/23 22:38 codeine Allergy Intermediate ITCHING/VIVIAN Verified 04/21/23 22:38 SEA Corticosteroids Allergy Intermediate STERIOD Verified 04/21/23 22:38 (Glucocorticoids) INJECTIONS - FLUSHING AND BLOTCHING REDNESS, ITCHY morphine Allergy Intermediate ITCHY HIVES Verified 04/21/23 22:38 oxycodone Allergy Intermediate PERCOCET-ITCHING Verified 04/21/23 22:38 OF ARMS,SHOULDERS,GROGGY/GI UPSET shellfish derived Allergy Intermediate Rash Verified 04/21/23 22:38 Tetracyclines Allergy Intermediate Rash Verified 04/21/23 22:38 dipyridamole Allergy Unknown reaction Verified 04/21/23 22:38 unknown fenoprofen Allergy Unknown UNKNOWN Verified 04/21/23 22:38 PER [facility] MED LIST duloxetine AdvReac Severe SEDATION & Verified 04/21/23 22:38 BAD DREAMS mepivacaine AdvReac Unknown pt states Verified 04/21/23 22:38 "just didnt work" Home Meds Home Medications Medication Instructions Recorded Confirmed mirtazapine 30 mg tablet 30 mg feeding tube HS 06/24/22 01/14/24 riluzole 50 mg tablet 50 mg feeding tube BID 06/24/22 01/14/24 acetaminophen 500 mg tablet 1,000 mg feeding tube Q8H PRN Pain 04/21/23 01/14/24 (Acetaminophen Extra Strength) azathioprine 50 mg tablet (Imuran) 50 mg feeding tube QAM 04/21/23 01/14/24 baclofen 10 mg tablet 10 mg feeding tube BID 04/21/23 01/14/24 cholecalciferol (vitamin D3) 50 50 mcg feeding tube DAILY 04/21/23 01/14/24 mcg (2,000 unit) tablet (Vitamin D3) cyanocobalamin (vitamin B-12) 1,000 mcg feeding tube QAM 04/21/23 01/14/24 1,000 mcg tablet (Vitamin B-12) edaravone 105 mg/5 mL oral 0 mg feeding tube DIRECTED 04/21/23 01/14/24 suspension (Radicava ORS) glycopyrrolate 1 mg tablet 1 mg feeding tube TID PRN 04/21/23 01/14/24 Congestion naproxen 125 mg/5 mL oral 500 mg feeding tube BID 04/21/23 01/14/24 suspension pantoprazole 40 mg tablet,delayed 40 mg PO QAM 04/21/23 01/14/24 release potassium citrate 99 mg capsule 99 mg PO DAILY 04/21/23 01/14/24 sertraline 100 mg tablet 100 mg feeding tube DAILY 04/21/23 01/14/24 sodium phenylbutyrate 3 1 packet feeding tube DAILY 04/21/23 01/14/24 gram-taurursodiol 1 gram oral powder packet (Relyvrio) gabapentin 250 mg/5 mL oral 250 mg feeding tube BID 01/14/24 01/14/24 solution Previous Rx's Medication Instructions Recorded Tube Feeding Water Flush #1 ea 06/30/22 hydrocodone 7.5 mg-acetaminophen 5 ml PO Q6H PRN pain #118 mL 04/22/23 325 mg/15 mL oral solution amoxicillin 875 mg-potassium 1 tab PO BID 2 days #4 tabs 01/19/24 clavulanate 125 mg tablet guaifenesin 100 mg/5 mL oral liquid 200 mg (10 mL) PEG Q4H PRN cough 01/19/24 #500 mL Results & Data (ED) Vital Signs Vital Signs - 24 hr 01/13/24 16:29 01/13/24 16:29 01/13/24 16:36 Temperature 37.5 C Temperature Source Temporal Artery Scan Pulse Rate 80 Respiratory Rate 28 H Respiratory Effort / Characteristics Spontaneous Blood Pressure 153/76 H Blood Pressure Mean 101 Pulse Oximetry 85 L 87 L Oxygen Delivery Method Room Air Room Air Oxygen Flow Rate 0 Sepsis Recent Fever Within 48 Hours No Sepsis New/Unexplained Change in Mental Status N/A Sepsis Action Taken by Nursing No Action Required Oxygen Flow Rate - Titration 2 Pulse Oximetry Post Tiitration 90 Home Medications Current Medication List: was personally reviewed by me Laboratory Data Attestation: I reviewed the patient's lab results. 01/16/24 05:47 01/17/24 05:39 Lab Results 01/13/24 01/13/24 Range/Units 16:47 16:58 WBC 13.33 H (4.8-10.8) K/ul RBC 3.37 L (4.20-5.40) M/uL Hgb 10.6 L (12.0-16.0) g/dl Hct 32.5 L (37.0-47.0) % MCV 96.4 (80.0-100.0) fL MCH 31.5 (25.0-34.0) pg MCHC 32.6 (32.0-36.0) g/dL RDW Std Deviation 55.0 H (36.4-46.3) fL RDW Coeff of Gale 15.5 H (11.5-14.5) % Plt Count 234 (130-400) K/uL MPV 10.3 (9.4-12.4) fL Immature Gran % (Auto) 0.4 % Neut % (Auto) 90.9 % Lymph % (Auto) 3.3 % Page % (Auto) 4.4 % Eos % (Auto) 0.8 % Baso % (Auto) 0.2 % Neut # (Auto) 12.14 H (1.40-6.50) K/uL Lymph # (Auto) 0.44 L (1.20-3.40) K/uL Page # (Auto) 0.58 (0.11-0.59) K/uL Eos # (Auto) 0.10 (0.00-0.50) K/uL Baso # (Auto) 0.02 (0.00-0.20) K/uL Immature Gran # (Auto) 0.05 (0.01-0.20) K/uL PT 11.0 (9.0-12.0) Seconds INR 1.0 (0.9-1.1) APTT 23 (21-31) Seconds PTT Ratio 0.9 Sodium 139 (136-145) mmol/L Potassium 4.0 (3.5-5.1) mmol/L Chloride 103 (98-107) mmol/L Carbon Dioxide 29 (21-32) mmol/L Anion Gap 7 (3-11) BUN 20 (6-23) mg/dl Creatinine 0.80 (0.6-1.2) mg/dl Est Cr Clr Drug Dosing Not Reportable Est GFR ( Amer) 76.3 ml/min Est GFR (Non-Af Amer) 65.8 ml/min BUN/Creatinine Ratio 25.0 H (10-20) Glucose 98 (70-99(Fasting)) mg/dl Lactate 1.3 (0.4-2.0) mmol/L Calcium 9.5 (8.6-10.3) mg/dl Magnesium 1.8 (1.7-2.4) mg/dl Total Bilirubin 0.5 (0.2-1.0) mg/dl AST 24 (13-39) U/L ALT 5 L (7-52) U/L Alkaline Phosphatase 101 (34-104) U/L Troponin I High Sens 84.5 H* (0-14) pg/ml B-Natriuretic Peptide 282 H (0-100) pg/ml Total Protein 7.6 (6.0-8.3) gm/dl Albumin 4.0 (3.4-5.0) gm/dl Globulin 3.6 (2.5-4.0) gm/dl Albumin/Globulin Ratio 1.1 (0.9-2) Lipase 18 (11-82) U/L Procalcitonin 0.03 (0-0.5) ng/ml Adenovirus (PCR) Not Detected (NotDetected) B. pertussis DNA (PCR) Not Detected (NotDetected) B.parapertussis DNA PCR Not Detected (NotDetected) C. pneumoniae DNA (PCR) Not Detected (NotDetected) Coronavirus OC43 (PCR) Not Detected (NotDetected) Coronavirus HKU1 (PCR) Not Detected (NotDetected) Coronavirus 229E (PCR) Not Detected (NotDetected) SARS-CoV-2 (PCR) Not Detected (NotDetected) Coronavirus NL63 (PCR) Not Detected (NotDetected) Human Metapneumovir PCR Not Detected (NotDetected) Influenza Type A (PCR) Not Detected (NotDetected) Influenza Type B (PCR) Not Detected (NotDetected) M. pneumoniae (PCR) Not Detected (NotDetected) Parainfluenza 1 (PCR) Not Detected (NotDetected) Parainfluenza 2 (PCR) Not Detected (NotDetected) Parainfluenza 3 (PCR) Not Detected (NotDetected) Parainfluenza 4 (PCR) Not Detected (NotDetected) RSV (PCR) Not Detected (NotDetected) Entero/Rhino (PCR) Not Detected (NotDetected) Administered Medications Discontinued Medications Acetaminophen (Acetaminophen 500 Mg Tab) 1,000 mg PO Q8H PRN PRN Reason: Pain Stop: 02/12/24 21:13 Last Admin: 01/18/24 10:23 Dose: 1,000 mg Documented By: Admin: 01/15/24 10:29 Dose: 1,000 mg Documented By: Admin: 01/14/24 09:21 Dose: 1,000 mg Documented By: RIAN Albuterol (Albut/Ipratrop 3mg/0.5mg Neb 3 Ml Vial) 3 ml NEB NOW STA; Protocol Stop: 01/13/24 16:33 Last Admin: 01/13/24 17:21 Dose: 3 ml Documented By: MIHIR Azathioprine (Azathioprine 50 Mg Tab) 50 mg PO QAM [facility] Stop: 02/13/24 08:59 Last Admin: 01/18/24 10:09 Dose: 50 mg Documented By: Admin: 01/17/24 09:32 Dose: 50 mg Documented By: Admin: 01/16/24 13:07 Dose: 50 mg Documented By: Admin: 01/15/24 09:52 Dose: 50 mg Documented By: Admin: 01/14/24 11:37 Dose: 50 mg Documented By: JAZMIN Azathioprine (Azathioprine 50 Mg Tab) [facility] [place] Stop: 02/13/24 08:59 Last Admin: 01/19/24 09:12 Dose: 50 mg Documented By: WILDA Baclofen (Baclofen 10 Mg Tab) 5 mg PEG BID JOSE J Stop: 02/12/24 21:29 Last Admin: 01/19/24 09:13 Dose: 5 mg Documented By: Admin: 01/18/24 21:13 Dose: 5 mg Documented By: Admin: 01/18/24 09:30 Dose: 5 mg Documented By: Admin: 01/17/24 21:20 Dose: 5 mg Documented By: Admin: 01/17/24 09:30 Dose: 5 mg Documented By: Admin: 01/16/24 20:28 Dose: 5 mg Documented By: Admin: 01/16/24 09:46 Dose: 5 mg Documented By: Admin: 01/15/24 21:11 Dose: 5 mg Documented By: Admin: 01/15/24 08:17 Dose: 5 mg Documented By: Admin: 01/14/24 21:02 Dose: 5 mg Documented By: Admin: 01/14/24 09:21 Dose: 5 mg Documented By: Admin: 01/13/24 22:04 Dose: 5 mg Documented By: TATYANA Carbidopa/Levodopa (Carbidopa/Levodopa 25/100mg Tab) 0.5 tab PO NOW STA Stop: 01/16/24 01:37 Last Admin: 01/16/24 01:58 Dose: 0.5 tab Documented By: KARUNA Clonazepam (Clonazepam 0.5 Mg Tab) 0.25 mg PO DAILY PRN PRN Reason: restless leg syndrome or anxie Stop: 02/15/24 18:42 Last Admin: 01/17/24 09:30 Dose: 0.25 mg Documented By: Admin: 01/16/24 20:39 Dose: 0.25 mg Documented By: KARUNA Clonazepam (Clonazepam 0.5 Mg Tab) 0.25 mg PO BID PRN PRN Reason: restless leg syndrome or anxie Stop: 02/15/24 18:42 Last Admin: 01/17/24 22:25 Dose: 0.25 mg Documented By: KARUNA Gabapentin (Gabapentin 250 Mg/5 Ml 470 Ml Btl) 100 mg PO BID JOSE J Stop: 02/15/24 12:14 Last Admin: 01/16/24 12:57 Dose: 100 mg Documented By: FERNIE Gabapentin (Gabapentin 250 Mg/5 Ml 470 Ml Btl) 200 mg PO BID JOSE J Stop: 02/15/24 20:59 Last Admin: 01/17/24 09:33 Dose: 200 mg Documented By: Admin: 01/16/24 20:29 Dose: 200 mg Documented By: KARUNA Gabapentin (Gabapentin 250 Mg/5 Ml 470 Ml Btl) 200 mg PEG TID JOSE J Stop: 02/16/24 13:59 Last Admin: 01/19/24 09:19 Dose: 200 mg Documented By: Admin: 01/18/24 21:28 Dose: 200 mg Documented By: Admin: 01/18/24 14:20 Dose: 200 mg Documented By: Admin: 01/18/24 09:37 Dose: 200 mg Documented By: Admin: 01/17/24 21:28 Dose: 200 mg Documented By: Admin: 01/17/24 14:07 Dose: 200 mg Documented By: JOVANNI Glycopyrrolate (Glycopyrrolate 1 Mg Tab) 1 mg PO TID PRN PRN Reason: Congestion Stop: 02/12/24 21:13 Last Admin: 01/15/24 08:28 Dose: 1 mg Documented By: BALTAZAR Guaifenesin (Guaifenesin 600 Mg Tabcr) 600 mg PO Q12 JOSE J Stop: 02/16/24 20:59 Last Admin: 01/17/24 22:47 Dose: Not Given Documented By: KARUNA Guaifenesin (Guaifenesin Sugar Free 200 Mg/10 Ml Udc) 200 mg PEG Q4H JOSE J Stop: 02/16/24 22:59 Last Admin: 01/19/24 07:18 Dose: 200 mg Documented By: Admin: 01/19/24 04:03 Dose: 200 mg Documented By: Admin: 01/18/24 22:36 Dose: 200 mg Documented By: Admin: 01/18/24 18:02 Dose: 200 mg Documented By: Admin: 01/18/24 15:25 Dose: 200 mg Documented By: Admin: 01/18/24 10:25 Dose: 200 mg Documented By: Admin: 01/18/24 06:29 Dose: 200 mg Documented By: Admin: 01/18/24 03:54 Dose: 200 mg Documented By: Admin: 01/17/24 23:15 Dose: 200 mg Documented By: KARUNA Piperacillin Sod/Tazobactam Sod (Zosyn) 4.5 gm in 100 mls @ 200 mls/hr IV NOW ONE Stop: 01/13/24 18:33 Last Infusion: 01/13/24 20:02 Dose: Infused Documented By: Admin: 01/13/24 18:40 Dose: 200 mls/hr Documented By: CAW Sodium Chloride (Nss) 500 mls @ 999 mls/hr IV .Q31M ONE Stop: 01/13/24 18:39 Last Infusion: 01/13/24 20:02 Dose: Infused Documented By: Admin: 01/13/24 18:40 Dose: 999 mls/hr Documented By: MIHIR Sodium Chloride (Nss) 1,000 mls @ 60 mls/hr IV .[id number] JOSE J Stop: 02/12/24 21:29 Last Infusion: 01/14/24 17:08 Dose: Infused Documented By: Admin: 01/14/24 13:49 Dose: 60 mls/hr Documented By: Infusion: 01/14/24 13:49 Dose: Infused Documented By: Admin: 01/13/24 21:41 Dose: 60 mls/hr Documented By: TATYANA Piperacillin Sod/Tazobactam (Sod 4.5 gm/ Dextrose) 100 mls @ 25 mls/hr IV Q8H JOSE J; Protocol Stop: 01/21/24 00:00 Last Infusion: 01/15/24 12:39 Dose: Infused Documented By: Admin: 01/15/24 08:28 Dose: 25 mls/hr Documented By: Infusion: 01/15/24 04:31 Dose: Infused Documented By: Admin: 01/15/24 00:17 Dose: 25 mls/hr Documented By: Infusion: 01/14/24 20:57 Dose: Infused Documented By: Admin: 01/14/24 16:41 Dose: 25 mls/hr Documented By: Infusion: 01/14/24 14:11 Dose: Infused Documented By: Admin: 01/14/24 09:20 Dose: 25 mls/hr Documented By: Infusion: 01/14/24 03:59 Dose: Infused Documented By: Admin: 01/13/24 23:46 Dose: 25 mls/hr Documented By: TATYANA Pantoprazole Sodium 40 mg/ (Syringe) 10 mls @ 5 mls/min IV BID JOSE J Stop: 02/12/24 21:29 Last Admin: 01/18/24 09:33 Dose: 5 mls/min Documented By: Admin: 01/17/24 21:22 Dose: 5 mls/min Documented By: Admin: 01/17/24 09:27 Dose: 5 mls/min Documented By: Admin: 01/16/24 20:29 Dose: 5 mls/min Documented By: Admin: 01/16/24 10:23 Dose: 5 mls/min Documented By: Admin: 01/15/24 21:11 Dose: 5 mls/min Documented By: Admin: 01/15/24 08:14 Dose: 5 mls/min Documented By: Admin: 01/14/24 21:02 Dose: 5 mls/min Documented By: Admin: 01/14/24 09:23 Dose: 5 mls/min Documented By: Admin: 01/13/24 22:57 Dose: 5 mls/min Documented By: TATYANA Dextrose/Sodium Chloride (D5w And Nss) 1,000 mls @ 60 mls/hr IV .[id number] JOSE J Stop: 02/13/24 16:29 Last Infusion: 01/16/24 10:57 Dose: Infused Documented By: Admin: 01/16/24 06:46 Dose: 60 mls/hr Documented By: Infusion: 01/16/24 06:30 Dose: Infused Documented By: Infusion: 01/16/24 04:55 Dose: 60 mls/hr Documented By: Infusion: 01/16/24 04:21 Dose: 0 mls/hr Documented By: Infusion: 01/15/24 22:29 Dose: 60 mls/hr Documented By: Infusion: 01/15/24 21:53 Dose: 0 mls/hr Documented By: Admin: 01/15/24 12:40 Dose: 60 mls/hr Documented By: Infusion: 01/15/24 08:41 Dose: Infused Documented By: Admin: 01/14/24 16:41 Dose: 60 mls/hr Documented By: RIAN Ampicillin Sodium/Sulbactam Sodium 3,000 mg/ Sodium Chloride 100 mls @ 200 mls/hr IV Q6H JOSE J Stop: 01/21/24 00:00 Last Infusion: 01/19/24 10:20 Dose: Infused Documented By: AARhea Admin: 01/19/24 09:41 Dose: 200 mls/hr Documented By: AARhea Infusion: 01/19/24 04:41 Dose: Infused Documented By: Admin: 01/19/24 04:03 Dose: 200 mls/hr Documented By: Infusion: 01/18/24 23:51 Dose: Infused Documented By: Admin: 01/18/24 22:36 Dose: 200 mls/hr Documented By: Infusion: 01/18/24 16:07 Dose: Infused Documented By: Admin: 01/18/24 15:25 Dose: 200 mls/hr Documented By: Infusion: 01/18/24 10:50 Dose: Infused Documented By: Admin: 01/18/24 10:14 Dose: 200 mls/hr Documented By: Infusion: 01/18/24 04:28 Dose: Infused Documented By: Admin: 01/18/24 03:54 Dose: 200 mls/hr Documented By: Infusion: 01/17/24 23:10 Dose: Infused Documented By: Admin: 01/17/24 22:32 Dose: 200 mls/hr Documented By: Infusion: 01/17/24 16:32 Dose: Infused Documented By: Admin: 01/17/24 15:55 Dose: 200 mls/hr Documented By: Infusion: 01/17/24 10:09 Dose: Infused Documented By: Admin: 01/17/24 09:29 Dose: 200 mls/hr Documented By: Infusion: 01/17/24 05:40 Dose: Infused Documented By: Admin: 01/17/24 04:58 Dose: 200 mls/hr Documented By: Infusion: 01/16/24 22:41 Dose: Infused Documented By: Admin: 01/16/24 22:06 Dose: 200 mls/hr Documented By: Infusion: 01/16/24 16:42 Dose: Infused Documented By: Admin: 01/16/24 16:03 Dose: 200 mls/hr Documented By: Infusion: 01/16/24 10:56 Dose: Infused Documented By: Admin: 01/16/24 10:23 Dose: 200 mls/hr Documented By: Infusion: 01/16/24 04:55 Dose: Infused Documented By: Admin: 01/16/24 04:20 Dose: 200 mls/hr Documented By: Infusion: 01/15/24 22:29 Dose: Infused Documented By: Admin: 01/15/24 21:53 Dose: 200 mls/hr Documented By: Infusion: 01/15/24 17:33 Dose: Infused Documented By: Admin: 01/15/24 16:55 Dose: 200 mls/hr Documented By: [facility] Potassium Chloride/Dextrose/Sod Cl (D5w And 1/2nss + 20meq Kcl) 20 meq in 1,000 mls @ 60 mls/hr IV .[id number] JOES J Stop: 02/15/24 08:14 Last Admin: 01/18/24 16:31 Dose: Not Given Documented By: Infusion: 01/18/24 16:30 Dose: Infused Documented By: Infusion: 01/18/24 04:29 Dose: 60 mls/hr Documented By: Infusion: 01/18/24 03:57 Dose: 0 mls/hr Documented By: Admin: 01/18/24 03:57 Dose: 60 mls/hr Documented By: Infusion: 01/18/24 03:25 Dose: Infused Documented By: Infusion: 01/17/24 23:10 Dose: 60 mls/hr Documented By: Infusion: 01/17/24 22:33 Dose: 0 mls/hr Documented By: Admin: 01/17/24 10:08 Dose: 60 mls/hr Documented By: Infusion: 01/17/24 03:37 Dose: Infused Documented By: Infusion: 01/16/24 22:41 Dose: 60 mls/hr Documented By: Infusion: 01/16/24 22:06 Dose: 0 mls/hr Documented By: Admin: 01/16/24 10:22 Dose: 60 mls/hr Documented By: FERNIE Magnesium Sulfate/Dextrose (Magnesium Sulfate / D5w) 1 gm in 100 mls @ 50 mls/hr IV ONE ONE Stop: 01/16/24 11:01 Last Infusion: 01/16/24 17:46 Dose: 0 mls/hr Documented By: Infusion: 01/16/24 11:56 Dose: 0 mls/hr Documented By: Admin: 01/16/24 10:53 Dose: 50 mls/hr Documented By: DLS Ipratropium [place] (Ipratropium [place] Neb Soln 0.02% 0.5mg/2.5ml Vial) 0.5 mg NEB Q6R JOSE J Stop: 02/13/24 00:59 Last Admin: 01/19/24 07:54 Dose: 0.5 mg Documented By: Admin: 01/19/24 01:32 Dose: 0.5 mg Documented By: Admin: 01/18/24 19:42 Dose: 0.5 mg Documented By: Admin: 01/18/24 13:27 Dose: 0.5 mg Documented By: [id number] Admin: 01/18/24 07:41 Dose: 0.5 mg Documented By: Admin: 01/18/24 01:37 Dose: 0.5 mg Documented By: Admin: 01/17/24 19:39 Dose: 0.5 mg Documented By: Admin: 01/17/24 12:44 Dose: 0.5 mg Documented By: Admin: 01/17/24 07:20 Dose: 0.5 mg Documented By: Admin: 01/17/24 01:17 Dose: Not Given Documented By: Admin: 01/16/24 19:43 Dose: 0.5 mg Documented By: EMTa Admin: 01/16/24 12:48 Dose: 0.5 mg Documented By: Admin: 01/16/24 07:42 Dose: 0.5 mg Documented By: Admin: 01/16/24 00:16 Dose: 0.5 mg Documented By: Admin: 01/15/24 19:17 Dose: 0.5 mg Documented By: Admin: 01/15/24 12:15 Dose: 0.5 mg Documented By: Admin: 01/15/24 07:08 Dose: 0.5 mg Documented By: Admin: 01/15/24 01:02 Dose: 0.5 mg Documented By: Admin: 01/14/24 19:24 Dose: 0.5 mg Documented By: Admin: 01/14/24 13:37 Dose: 0.5 mg Documented By: Admin: 01/14/24 07:03 Dose: 0.5 mg Documented By: Admin: 01/14/24 00:41 Dose: 0.5 mg Documented By: CAM Lansoprazole (Lansoprazole 30 Mg Soltab) 30 mg PEG BID JOSE J Stop: 02/17/24 20:59 Last Admin: 01/19/24 09:14 Dose: 30 mg Documented By: Admin: 01/18/24 21:12 Dose: 30 mg Documented By: BLANKA Levalbuterol HCl (Levalbuterol 1.25mg/0.5ml Neb) 1.25 mg NEB Q6R JOSE J; Protocol Stop: 02/13/24 00:59 Last Admin: 01/14/24 19:25 Dose: Not Given Documented By: Admin: 01/14/24 13:37 Dose: Not Given Documented By: Admin: 01/14/24 07:03 Dose: Not Given Documented By: Admin: 01/14/24 00:41 Dose: Not Given Documented By: WELLINGTON Levalbuterol HCl (Levalbuterol 1.25 Mg/3 Ml Neb) Confirm Administered Dose 1.25 mg .ROUTE .STK-MED ONE Stop: 01/14/24 00:36 Last Admin: 01/14/24 00:41 Dose: 1.25 mg Documented By: WELLINGTON Levalbuterol HCl (Levalbuterol 1.25 Mg/3 Ml Neb) Confirm Administered Dose 1.25 mg .ROUTE .STK-MED ONE Stop: 01/14/24 06:51 Last Admin: 01/14/24 07:03 Dose: 1.25 mg Documented By: MARLENE Levalbuterol HCl (Levalbuterol 1.25 Mg/3 Ml Neb) Confirm Administered Dose 1.25 mg .ROUTE .STK-MED ONE Stop: 01/14/24 13:35 Last Admin: 01/14/24 13:37 Dose: 1.25 mg Documented By: MARLENE Levalbuterol HCl (Levalbuterol 1.25 Mg/3 Ml Neb) 1.25 mg NEB Q6R JOS EJ; Protocol Stop: 02/14/24 00:59 Last Admin: 01/19/24 07:54 Dose: 1.25 mg Documented By: Admin: 01/19/24 01:32 Dose: 1.25 mg Documented By: Admin: 01/18/24 19:42 Dose: 1.25 mg Documented By: Admin: 01/18/24 13:26 Dose: 1.25 mg Documented By: [id number] Admin: 01/18/24 07:41 Dose: 1.25 mg Documented By: Admin: 01/18/24 01:37 Dose: 1.25 mg Documented By: Admin: 01/17/24 19:39 Dose: 1.25 mg Documented By: Admin: 01/17/24 12:44 Dose: 1.25 mg Documented By: Admin: 01/17/24 07:20 Dose: 1.25 mg Documented By: Admin: 01/17/24 01:17 Dose: Not Given Documented By: Admin: 01/16/24 19:43 Dose: 1.25 mg Documented By: EMTa Admin: 01/16/24 12:48 Dose: 1.25 mg Documented By: Admin: 01/16/24 07:42 Dose: 1.25 mg Documented By: Admin: 01/16/24 00:16 Dose: 1.25 mg Documented By: Admin: 01/15/24 19:17 Dose: 1.25 mg Documented By: Admin: 01/15/24 12:15 Dose: 1.25 mg Documented By: Admin: 01/15/24 07:08 Dose: 1.25 mg Documented By: Admin: 01/15/24 01:02 Dose: 1.25 mg Documented By: RACHELL Lidocaine (Lidocaine 5% 1 Patch) 1 patch TD NOW STA Stop: 01/16/24 12:12 Last Admin: 01/16/24 12:56 Dose: 1 patch Documented By: DLS Melatonin (Melatonin 3 Mg Tab) 3 mg PO HS PRN PRN Reason: Sleep Stop: 02/13/24 22:26 Last Admin: 01/15/24 23:40 Dose: 3 mg Documented By: Admin: 01/14/24 22:48 Dose: 3 mg Documented By: CWR Mirtazapine (Mirtazapine Tab 15 Mg Tab) 30 mg GT HS JOSE J Stop: 02/12/24 21:29 Last Admin: 01/18/24 21:15 Dose: 30 mg Documented By: Admin: 01/17/24 21:21 Dose: 30 mg Documented By: Admin: 01/16/24 20:29 Dose: 30 mg Documented By: Admin: 01/15/24 21:11 Dose: 30 mg Documented By: Admin: 01/14/24 21:01 Dose: 30 mg Documented By: Admin: 01/13/24 22:04 Dose: 30 mg Documented By: TATYANA Miscellaneous (Remove Lidoderm Patch) 1 each N/A DAILY@2100 JOS EJ Stop: 02/15/24 20:59 Last Admin: 01/18/24 21:16 Dose: 1 each Documented By: Admin: 01/17/24 20:45 Dose: Not Given Documented By: Admin: 01/16/24 20:54 Dose: 1 each Documented By: KARUNA Naproxen (Naproxen 250 Mg Tab) 500 mg PO TID JOSE J Stop: 02/12/24 21:29 Last Admin: 01/19/24 09:16 Dose: 500 mg Documented By: Admin: 01/18/24 21:16 Dose: 500 mg Documented By: Admin: 01/18/24 14:21 Dose: 500 mg Documented By: AARhea Admin: 01/18/24 09:31 Dose: 500 mg Documented By: Admin: 01/17/24 21:21 Dose: 500 mg Documented By: Admin: 01/17/24 13:15 Dose: 500 mg Documented By: Admin: 01/17/24 09:31 Dose: 500 mg Documented By: Admin: 01/16/24 20:29 Dose: 500 mg Documented By: Admin: 01/16/24 12:55 Dose: 500 mg Documented By: Admin: 01/16/24 09:47 Dose: 500 mg Documented By: Admin: 01/15/24 21:11 Dose: 500 mg Documented By: Admin: 01/15/24 13:18 Dose: 500 mg Documented By: Admin: 01/15/24 08:18 Dose: 500 mg Documented By: Admin: 01/14/24 21:01 Dose: 500 mg Documented By: Admin: 01/14/24 13:49 Dose: 500 mg Documented By: Admin: 01/14/24 09:22 Dose: 500 mg Documented By: Admin: 01/13/24 22:04 Dose: 500 mg Documented By: TATYANA Potassium Chloride (Potassium Chloride 20 Meq/15 Ml Udc) 40 meq PEG TID JOSE J Stop: 01/17/24 08:59 Last Admin: 01/16/24 20:29 Dose: 40 meq Documented By: Admin: 01/16/24 12:55 Dose: 40 meq Documented By: Admin: 01/16/24 09:48 Dose: 40 meq Documented By: FERNIE Sertraline HCl (Sertraline Hcl 100 Mg Tablet) 100 mg PEG DAILY JOSE J Stop: 02/13/24 08:59 Last Admin: 01/19/24 09:16 Dose: 100 mg Documented By: Admin: 01/18/24 09:32 Dose: 100 mg Documented By: Admin: 01/17/24 09:31 Dose: 100 mg Documented By: Admin: 01/16/24 09:48 Dose: 100 mg Documented By: Admin: 01/15/24 08:18 Dose: 100 mg Documented By: Admin: 01/14/24 09:22 Dose: 100 mg Documented By: RIAN Sodium Chloride (Sodium Chlor 7% 4 Ml Neb) 4 ml NEB BIDR JOSE J Stop: 02/13/24 18:59 Last Admin: 01/19/24 07:54 Dose: 4 ml Documented By: Admin: 01/18/24 19:42 Dose: 4 ml Documented By: Admin: 01/18/24 07:41 Dose: 4 ml Documented By: Admin: 01/17/24 19:39 Dose: 4 ml Documented By: Admin: 01/17/24 07:20 Dose: 4 ml Documented By: Admin: 01/16/24 19:43 Dose: 4 ml Documented By: Admin: 01/16/24 07:42 Dose: 4 ml Documented By: Admin: 01/15/24 19:17 Dose: 4 ml Documented By: Admin: 01/15/24 07:08 Dose: 4 ml Documented By: Admin: 01/14/24 19:24 Dose: 4 ml Documented By: RACHELL Vitamin D (Cholecalciferol 25 Mcg (1000 Units) Tab) 50 mcg PO DAILY JOSE J Stop: 02/13/24 08:59 Last Admin: 01/19/24 09:14 Dose: 50 mcg Documented By: Admin: 01/18/24 09:30 Dose: 50 mcg Documented By: Admin: 01/17/24 09:32 Dose: 50 mcg Documented By: Admin: 06/01/24 09:47 Dose: 50 mcg Documented By: Admin: 01/15/24 08:19 Dose: 50 mcg Documented By: Admin: 01/14/24 09:22 Dose: 50 mcg Documented By: RIAN Imaging Data Radiologist's Impression: Chest X-Ray 01/13/24 16:32 SINGLE VIEW CHEST CLINICAL HISTORY: Atypical chest pain FINDINGS: An AP, portable, upright chest radiograph is compared to study dated 04/21/2023 and correlated with chest CT dated 10/29/2021.. The heart is enlarged noting atherosclerotic calcification of the thoracic ureter. The pulmonary vasculature is not congested. Chronic residual thickening is similar to previous. There is bibasilar scarring/atelectasis. No airspace consolidation or large pleural effusion is identified. No pneumothorax is seen. The skeletal structures are osteopenic. There is chronic deformity of the left humeral head. Fusion hardware is noted in the lower cervical spine. An intrathecal lead projects over the mid thoracic spine. IMPRESSION: Cardiomegaly with no active disease in the chest. ACT 112: Negative or not required by law. Electronically signed by: Trenton Bergman M.D. 01/13/2024 5:31 PM Discharge Plan Visit Data Chief Complaint: Chest Pain Stated Complaint: COUGH, VOMITING LIQUID, CRACKLING/CHEST PAIN ED Provider: Jose C Ackerman Discharge Problem: Aspiration pneumonia, ALS (amyotrophic lateral sclerosis), Gastrostomy tube in place Patient Disposition: Admitted As Inpatient Discharge Instructions Interventions: ED Discharge Assessment Last Done: 01/13/24 20:11
[2024-01-13 17:21] LABS: Hematocrit (blood only) 32.5 % (37.0-47.0); Hemoglobin 10.6 g/dl (12.0-16.0); Mean Corpuscular Hemoglobin 31.5 pg (25.0-34.0); Mean Corpuscular Hgb Conc 32.6 g/dL (32.0-36.0); Mean Corpuscular Volume 96.4 fL (80.0-100.0); Mean Platelet Volume 10.3 fL (9.4-12.4); Platelet Count 234 K/uL (130-400); RDW Coefficient of Variation 15.5 % (11.5-14.5); Red Blood Count 3.37 M/uL (4.20-5.40); White Blood Count 13.33 K/ul (4.8-10.8)
[2024-01-13] MEDS: ALBUT/IPRATROP 3MG/0.5MG NEB 3 ML VIAL NEB STA (17:21)
--- NOTE | 2024-01-13 17:32 | XRay Report ---
SINGLE VIEW CHEST CLINICAL HISTORY: Atypical chest pain FINDINGS: An AP, portable, upright chest radiograph is compared to study dated 04/21/2023 and correlate d with chest CT dated 10/29/2021.. The heart is enlarged noting atherosclerotic calcification of the t horacic ureter. The pulmonary vasculature is not congested. Chronic residual thickening is similar to previous. There is bibasilar scarring/atelectasis. No airspace consolidation or large pleural effusi on is identified. No pneumothorax is seen. The skeletal structures are osteopenic. There is chronic d eformity of the left humeral head. Fusion hardware is noted in the lower cervical spine. An intrathec al lead projects over the mid thoracic spine. IMPRESSION: Cardiomegaly with no active disease in the chest. ACT 112: Negative or not required by law. Electronically signed by: Trenton Bergman M.D. 01/13/2024 5:31 PM
[2024-01-13 17:37] LABS: Alanine Aminotransferase 5 U/L (7-52); Albumin Globulin Ratio 1.1 (0.9-2); Alkaline Phosphatase 101 U/L (34-104); Anion Gap 7 (3-11); Aspartate Aminotransferase 24 U/L (13-39); Bilirubin,Total 0.5 mg/dl (0.2-1.0); Blood Urea Nitrogen 20 mg/dl (6-23); Calcium 9.5 mg/dl (8.6-10.3); Carbon Dioxide 29 mmol/L (21-32); Chloride 103 mmol/L (98-107); Est GFR (African American) 76.3 ml/min; Est GFR (Non-African American) 65.8 ml/min; Globulin 3.6 gm/dl (2.5-4.0); Glucose 98 mg/dl (70-99(Fasting)); Lipase 18 U/L (11-82); Magnesium 1.8 mg/dl (1.7-2.4); Sodium 139 mmol/L (136-145); Total Protein 7.6 gm/dl (6.0-8.3)
[2024-01-13 17:46] LABS: Basophils # (auto) 0.02 K/uL (0.00-0.20); Basophils % (auto) 0.2 %; Eosinophils % (auto) 0.8 %; Immature Granulocytes # (auto) 0.05 K/uL (0.01-0.20); Immature Granulocytes % (auto) 0.4 %; Lymphocytes # (auto) 0.44 K/uL (1.20-3.40); Lymphocytes % (auto) 3.3 %; Monocytes # (auto) 0.58 K/uL (0.11-0.59); Monocytes % (auto) 4.4 %; Neutrophils # (auto) 12.14 K/uL (1.40-6.50); Neutrophils % (auto) 90.9 %
[2024-01-13 17:48] LABS: Troponin I High Sensitivity 84.5 pg/ml (0-14)
[2024-01-13 17:49] LABS: Partial Thromboplastin Ratio 0.9; Partial Thromboplastin Time 23 Seconds (21-31)
[2024-01-13 18:01] LABS: Adenovirus PCR Not Detected (NotDetected); Bordetella parapertussis PCR Not Detected (NotDetected); Bordetella pertussis PCR Not Detected (NotDetected); Chlamydia pneumoniae PCR Not Detected (NotDetected); Coronavirus 229E PCR Not Detected (NotDetected); Coronavirus CoV-2 (COVID19)PCR Not Detected (NotDetected); Coronavirus HKU1 PCR Not Detected (NotDetected); Coronavirus NL63 PCR Not Detected (NotDetected); Coronavirus OC43PCR Not Detected (NotDetected); Human Metapneumovirus PCR Not Detected (NotDetected); Influenza A PCR Not Detected (NotDetected); Influenza B PCR Not Detected (NotDetected); Mycoplasma pneumoniae PCR Not Detected (NotDetected); Parainfluenza Virus 1 PCR Not Detected (NotDetected); Parainfluenza Virus 2 PCR Not Detected (NotDetected); Parainfluenza Virus 3 PCR Not Detected (NotDetected); Parainfluenza Virus 4 PCR Not Detected (NotDetected); Respiratory Syncytial VirusPCR Not Detected (NotDetected); Rhinovirus/Enterovirus PCR Not Detected (NotDetected)
[2024-01-13] MEDS: SODIUM CHLORIDE 0.9% 500 ML IV ONE (18:40)
[2024-01-13] MEDS: PIPERACILLIN/TAZOBACTAM 4.5 GM/100 ML BAG IV ONE (18:40)
--- NOTE | 2024-01-13 19:38 | History & Physical Report ---
Date of Service January 13, 2024 Assessment & Plan (1) Aspiration pneumonitis: Plan: 88-year-old female with history of ALS, esophageal reflux, schisis ring, presenting with cough and shortness of breath which started this morning. Cough, shortness of breath, likely aspiration pneumonitis with hypoxia In the setting of ALS, history of esophageal reflux and Schatzi's ring Patient normally eats by mouth, uses PEG tube only for medication administration Presents with cough, shortness of breath that started this morning CT chest: Pending CT head to rule out CVA as a cause for dysphagia IV Zosyn every 8 hours Xopenex/Atrovent nebs every 6 hours IV fluids Protonix 40 mg IV twice daily N.p.o. except small sips of water per patient request Speech therapy evaluation DVT prophylaxis Heparin SQ every 12 hours CODE STATUS DNR as per patient Disposition Lives with family at home plan of care discussed with patient and her daughter in law in detail and at length all questions answered they are understanding, agreeable, comfortable with the plan of care History of Present Illness Primary Care Provider: Manish Roblero DO 88-year-old female with history of ALS, esophageal reflux, schisis ring, presenting with cough and shortness of breath which started this morning. Patient has a history of ALS with status post PEG tube. She eats regular food daily but is careful with textures and only uses her PEG tube for medication administration as she is not able to swallow pills. She said she has been doing well until this morning when she started to have cough productive of white/clear phlegm, associated with some shortness of breath. She was then brought to the emergency room by her [id number] for evaluation. Patient received with saturation of 87% on room air, improved to 94% on 2 L of oxygen Chest x-ray no clear signs of pneumonia She was given Zosyn and nebulizer treatment for suspected aspiration. On exam, patient seen resting in bed, comfortable, on 2 L, not in distress States she feels somewhat improved since admission. No active shortness of breath, chest pain, nausea or vomiting during my interview. Allergies Allergy/AdvReac Type Severity Reaction Status Date / Time chlorhexidine Allergy Intermediate RASH Verified 04/21/23 22:38 codeine Allergy Intermediate ITCHING/VIVIAN Verified 04/21/23 22:38 SEA Corticosteroids Allergy Intermediate STERIOD Verified 04/21/23 22:38 (Glucocorticoids) INJECTIONS - FLUSHING AND BLOTCHING REDNESS, ITCHY Iodinated Contrast Media Allergy Intermediate Rash/Hives Verified 04/21/23 22:38 morphine Allergy Intermediate ITCHY HIVES Verified 04/21/23 22:38 oxycodone Allergy Intermediate PERCOCET-ITCHING Verified 04/21/23 22:38 OF ARMS,SHOULDERS,GROGGY/GI UPSET shellfish derived Allergy Intermediate Rash Verified 04/21/23 22:38 Tetracyclines Allergy Intermediate Rash Verified 04/21/23 22:38 dipyridamole Allergy Unknown reaction Verified 04/21/23 22:38 unknown fenoprofen Allergy Unknown UNKNOWN Verified 04/21/23 22:38 PER [facility] MED LIST duloxetine AdvReac Severe SEDATION & Verified 04/21/23 22:38 BAD DREAMS mepivacaine AdvReac Unknown pt states Verified 04/21/23 22:38 "just didnt work" IVP DYE Allergy Intermediate Hives Uncoded 04/21/23 22:38 Home Medications Medication Instructions Recorded Confirmed Type mirtazapine 30 mg tablet 30 mg feeding tube HS 06/24/22 04/21/23 History riluzole 50 mg tablet 50 mg feeding tube BID 06/24/22 04/21/23 History Tube Feeding Water Flush #1 ea 06/30/22 Rx acetaminophen 500 mg tablet 1,000 mg feeding tube Q8H PRN Pain 04/21/23 04/21/23 History (Acetaminophen Extra Strength) azathioprine 50 mg tablet (Imuran) 50 mg feeding tube QAM 04/21/23 04/21/23 History baclofen 10 mg tablet 10 mg feeding tube BID 04/21/23 04/21/23 History cholecalciferol (vitamin D3) 50 50 mcg feeding tube DAILY 04/21/23 04/21/23 History mcg (2,000 unit) tablet (Vitamin D3) cyanocobalamin (vitamin B-12) 1,000 mcg feeding tube QAM 04/21/23 04/21/23 History 1,000 mcg tablet (Vitamin B-12) edaravone 105 mg/5 mL oral 0 mg feeding tube DIRECTED 04/21/23 04/21/23 History suspension (Radicava ORS) glycopyrrolate 1 mg tablet 1 mg feeding tube TID PRN 04/21/23 04/21/23 History Congestion naproxen 125 mg/5 mL oral 500 mg feeding tube BID 04/21/23 04/21/23 History suspension pantoprazole 40 mg tablet,delayed 40 mg QAM 04/21/23 04/21/23 History release potassium citrate 99 mg capsule 99 mg PO DAILY 04/21/23 01/13/24 History sertraline 100 mg tablet 100 mg feeding tube DAILY 04/21/23 04/21/23 History sodium phenylbutyrate 3 1 packet feeding tube DAILY 04/21/23 04/21/23 History gram-taurursodiol 1 gram oral powder packet (Relyvrio) hydrocodone 7.5 mg-acetaminophen 5 ml PO Q6H PRN pain #118 mL 04/22/23 Rx 325 mg/15 mL oral solution Past Med/Surg History Problem List (Updated 01/13/24 @ 19:36 by Dallas Banegas MD) Aspiration pneumonitis Sialorrhea Weakness generalized Advanced care planning/counseling discussion Palliative care encounter Multifocal pneumonia (Acute) ALS (amyotrophic lateral sclerosis) (Acute) Vomiting (Acute) Immunosuppressed status Gastrostomy tube in place ALS (amyotrophic lateral sclerosis) Aspiration pneumonia Hypokalemia DVT prophylaxis Myasthenia gravis Autoimmune hepatitis "MEDICATION INDUCED"= ON IMURAN Syncope and collapse Weakness Fall (Acute) Left ankle sprain (Acute) Right-sided chest wall pain (Acute) Right sided abdominal pain (Acute) Encounter for pre-operative examination Dysphagia Diverticulosis (Chronic) GERD (gastroesophageal reflux disease) (Chronic) Dyslipidemia (Chronic) History of peptic ulcer disease (Chronic) Hiatal hernia (Chronic) Anxiety (Chronic) H/O: CVA (cerebrovascular accident) (Chronic) "2011 per patient" Spondylolisthesis, lumbar region (Chronic) Left hip pain (Acute) Ambulatory dysfunction (Acute) S/P hip replacement (Chronic) "bilateral" S/P cataract surgery (Chronic) H/O blepharoplasty (Chronic) H/O hernia repair (Chronic) H/O esophagogastroduodenoscopy (Chronic) H/O esophagogastroduodenoscopy (Chronic) "08/06/15- Schatzki's ring, small hiatal hernia, gastritis" Fall Humerus fracture Palpitations Encounter for pre-operative examination Encounter for pre-operative examination Encounter for pre-operative examination Dysphagia Dysphagia Medical History ALS (amyotrophic lateral sclerosis) Anemia CHRONIC Anxiety Autoimmune hepatitis "MEDICATION INDUCED"= ON IMURAN Depression Encounter for pre-operative examination Gastrostomy tube in place GERD (gastroesophageal reflux disease) Hiatal hernia Hip pain PT REPORTS STIMULATOR HAS BEEN REMOVED History of anesthesia reaction difficulty waking History of esophageal dilatation 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 DATE OF DX - LONG TIME AGO PER PT ; PT UNSURE DETAILS - NO BLOOD THINNER Stroke 2011; RESIDUAL BALANCE/HEARING ISSUES; PARTIAL EPIGLOTTIS "PARALYSIS" SVT (supraventricular tachycardia) PT UNSURE Valvular heart disease MILD MR/MODERATE TR PT UNSURE Surgical History Fusion of spine LUMBAR X2 H/O elbow replacement RIGHT H/O neck surgery "plate in back of my neck"--normal ROM moving neck front and back History of appendectomy History of cataract surgery BILATERAL History of cholecystectomy History of colonoscopy History of esophagogastroduodenoscopy (EGD) most recent 03/22/21 [place] History of hysterectomy CARRI WITH BSO History of surgery 07/2018--removal of spinal cord stimulator History of tonsillectomy and adenoidectomy History of total hip arthroplasty B/L Status post insertion of spinal cord stimulator HX Family History Mother Family history of diabetes mellitus Sister Family history of diabetes mellitus Daughter Cancer COLON/LYMPHOMA Other No family history of adverse response to anesthesia Social History Smoking Status: Former smoker Tobacco Type: Cigarettes Second Hand Exposure: No; Do You Dip or Chew Tobacco: No; Hx Alcohol Use: Yes Alcohol type: wine Hx Substance Use: No Preferred Language: Cameroonian Communication Ability: Effective Breakfast Hostess Required: No Beliefs That Will Affect Care: None marital status: / Current Living Situation: Alone Current Living Situation Comment: home alone, has home health nursing once/wk Feels Safe at Home: Yes Assistive Devices: Walker Review of Systems Review of Systems: all noted and negative except for above Physical Exam Physical Exam: General- oriented x 3, not in distress, speaks in sentences with no effort or accessory muscle use Mouth-dry oral mucosa Eyes- anicteric Neck- no JVD Lungs- Positive diffuse mild crackles bilaterally, no wheezing Heart- normal rate, regular rhythm; no murmurs Abdomen- normal bowel sounds, nondistended, soft, nontender Extremities- no pretibial edema, no calf tenderness Neuro- alert, oriented x 3; no gross focal neurologic deficits Skin- warm & dry Results & Data Results & Data Vital Signs (Past 12 Hours) Vital Signs Temp Pulse Pulse Resp BP BP Pulse Ox 01/13/24 17:22 77 01/13/24 17:15 81 20 94 01/13/24 17:15 36.8 C 86 20 159/108 H 94 01/13/24 16:36 87 L 01/13/24 16:29 37.5 C 80 28 H 153/76 H 85 L O2 Del Method O2 Flow Rate 01/13/24 17:22 01/13/24 17:15 Room Air 01/13/24 17:15 Room Air 01/13/24 16:36 Room Air 0 01/13/24 16:29 Room Air all noted and reviewed including below Code Status & VTE Plan VTE Prophylaxis Plan VTE Prophylaxis will be ordered: No
[2024-01-13] MEDS: SODIUM CHLORIDE 0.9% 1,000 ML IV SCH (21:41)
--- NOTE | 2024-01-13 21:55 | CT Scan Report ---
Exam(s): CT CHEST Without Contrast EXAM: CT Chest Without Intravenous Contrast CLINICAL HISTORY: Reason for exam: cough, hypoxia, r/o pneumonia. TECHNIQUE: Axial computed tomography images of the chest without intravenous contrast. CTDI is 7.73 mGy and DLP is 249.53 mGy-cm. Automated exposure control was utilized for the study. A dose lowering technique was utilized adhering to the principles of ALARA. COMPARISON: CT chest on 10/29/2021 FINDINGS: Lungs: Dependent consolidations bilaterally may represent combination of atelectasis and pneumonia. Bronchial wall thickening is concerning for bronchitis. Multiple areas of the lung apices. No mass. Pleural space: Unremarkable. No pneumothorax. No significant effusion. Heart: Coronary artery and aortic valve calcifications. No cardiomegaly. No significant pericardial effusion. Mediastinum: Nonspecific mildly prominent mediastinal lymph nodes. Small amount of fluid in the esophagus. Bones/joints: Elevation of the humeral heads is suggestive of chronic rotator cuff tears. Curvature of the spine. Degenerative changes of the spine. Mild anterolisthesis of T2 on T3. Anterior fusion changes of the cervical spine. No acute fracture. No dislocation. Soft tissues: Unremarkable. Vasculature: Atherosclerotic changes of the vasculature. Borderline ectasia of the ascending thoracic aorta measuring 3.9 cm in diameter. Lymph nodes: See above. Tubes, lines and devices: Epidural spinal stimulator noted. G-tube in place. IMPRESSION: 1. Dependent consolidations bilaterally may represent combination of atelectasis and pneumonia. 2. Bronchial wall thickening is concerning for bronchitis. Electronically signed by: Anselmo Duong M.D. 01/13/24 21:53 PM
[2024-01-13] MEDS: NAPROXEN 250 MG TAB PO SCH (22:04)
[2024-01-13] MEDS: MIRTAZAPINE TAB 15 MG TAB GT SCH (22:04)
[2024-01-13] MEDS: BACLOFEN 10 MG TAB PEG SCH (22:04)
--- NOTE | 2024-01-13 22:49 | CT Scan Report ---
Exam(s): CT HEAD Without Contrast EXAM: CT Head Without Intravenous Contrast CLINICAL HISTORY: Reason for exam: dysphagia. TECHNIQUE: Axial computed tomography images of the head/brain without intravenous contrast. CTDI is 35.37 mGy and DLP is 546.36 mGy-cm. Automated exposure control was utilized for the study. A dose lowering technique was utilized adhering to the principles of ALARA. COMPARISON: CT head on 12/07/2021 FINDINGS: Brain: No acute infarct or hemorrhage identified. No extra-axial fluid collection. No mass effect or midline shift. Scattered areas of hypoattenuation in the supratentorial white matter likely represent chronic small vessel ischemic changes. Ventricles and sulci: Prominence of the ventricles and sulci is likely secondary to cerebral volume loss. Bones: Hyperostosis frontalis interna. Degenerative changes of the temporomandibular joints. No bony lesion or acute fracture. Subcutaneous tissues: Normal. Sinuses: Normal. No air-fluid levels or mucosal thickening. Mastoid air cells: Normal. Orbits: Bilateral lens implants. Other: Atherosclerotic calcifications in the intracranial vasculature. IMPRESSION: 1. No acute intracranial abnormality. 2. Mild chronic small vessel ischemic changes and cerebral volume loss. Electronically signed by: Anselmo Duong M.D. 01/13/24 22:47 PM
[2024-01-13] MEDS: PANTOprazole 40 MG in SYRINGE 0 ML IV SCH (22:57)
[2024-01-13] MEDS: PIPERACILLIN/TAZOBACTAM 4.5 GM in DEXTROSE 5% MINI-B 100 ML IV SCH (23:46)
[2024-01-14] MEDS: LEVALBUTEROL 1.25MG/0.5ML NEB NEB SCH (00:41)
[2024-01-14] MEDS: LEVALBUTEROL 1.25 MG/3 ML NEB ONE ×3 (00:41→13:37)
[2024-01-14] MEDS: IPRATROPIUM BROMIDE NEB SOLN 0.02% 0.5MG/2.5ML VIAL NEB SCH (00:41)
[2024-01-14 01:36] LABS: Appearance Urine Clear (Clear); Bacteria Urine Automated None Seen (None Seen); Bilirubin Urine Negative (Negative); Blood Urine Negative (Negative); Cast Urine Automated 0-2 /lpf (0-2); Color Urine Yellow; Epithelial Cell Urine Auto 0-2 /hpf (0-2); Glucose Urine UA Trace (Negative); Ketones Urine Trace (Negative); Leukocyte Esterase Urine 3+ (Negative); Nitrite Urine Negative (Negative); Protein Urine Trace (Negative); Specific Gravity Urine 1.022 (1.000-1.030); Urobilinogen Urine Negative (Negative); WBC Urine Automated >50 /hpf (0-5)
[2024-01-14 06:37] LABS: Basophils # (auto) 0.06 K/uL (0.00-0.20); Basophils % (auto) 0.5 %; Eosinophils # (auto) 0.25 K/uL (0.00-0.50); Eosinophils % (auto) 1.9 %; Immature Granulocytes # (auto) 0.06 K/uL (0.01-0.20); Immature Granulocytes % (auto) 0.5 %; Lymphocytes # (auto) 0.97 K/uL (1.20-3.40); Lymphocytes % (auto) 7.6 %; Mean Corpuscular Hemoglobin 31.3 pg (25.0-34.0); Mean Corpuscular Hgb Conc 32.3 g/dL (32.0-36.0); Mean Corpuscular Volume 96.9 fL (80.0-100.0); Mean Platelet Volume 10.7 fL (9.4-12.4); Monocytes # (auto) 0.92 K/uL (0.11-0.59); Monocytes % (auto) 7.2 %; Neutrophils # (auto) 10.58 K/uL (1.40-6.50); Neutrophils % (auto) 82.3 %; Platelet Count 187 K/uL (130-400); RDW Coefficient of Variation 15.9 % (11.5-14.5); RDW Standard Deviation 56.7 fL (36.4-46.3); White Blood Count 12.84 K/ul (4.8-10.8)
[2024-01-14 06:48] LABS: Calcium 8.7 mg/dl (8.6-10.3); Magnesium 1.9 mg/dl (1.7-2.4); Potassium 4.3 mmol/L (3.5-5.1)
[2024-01-14 06:54] LABS: BUN Creatinine Ratio 27.2 (10-20); Creatinine Clr Calc Pharmacy 39.3 ml/min; Est GFR (African American) 75.2 ml/min; Est GFR (Non-African American) 64.8 ml/min
--- NOTE | 2024-01-14 07:51 | Electrocardiogram Report ---
Test Reason : Blood Pressure : / mmHG Vent. Rate : 078 BPM Atrial Rate : 078 BPM P-R Int : 132 ms QRS Dur : 082 ms QT Int : 370 ms P-R-T Axes : 008 -33 053 degrees QTc Int : 421 ms Normal sinus rhythm Left axis deviation Minimal voltage criteria for LVH, may be normal variant ( Dipak product ) Abnormal ECG When compared with ECG of 21-APR-2023 20:02, T wave amplitude has decreased in Anterior leads Confirmed by Daniel Batista ([id number]) on 01/14/2024 7:51:33 AM Referred By: REFERRED SELF Confirmed By:Daniel Batista
[2024-01-14] MEDS ORDERED: NON-FORMULARY MEDICATION (Potassium Citrate 99 mg Capsule) PO SCH (09:00)
[2024-01-14] MEDS: ACETAMINOPHEN 500 MG TAB PO PRN (09:21)
[2024-01-14] MEDS: CHOLECALCIFEROL 25 MCG (1000 UNITS) TAB PO SCH (09:22)
[2024-01-14] MEDS: SERTRALINE HCL 100 MG TABLET PEG SCH (09:22)
[2024-01-14] MEDS: azaTHIOprine 50 MG TAB PO SCH (11:37)
--- NOTE | 2024-01-14 12:42 | Gastrointestinal Consultation ---
Date of Consultation January 14, 2024 Assessment & Plan (1) Aspiration pneumonia: (2) ALS (amyotrophic lateral sclerosis): (3) Gastrostomy tube in place: Plan We discussed repeating her evaluation with video swallow/[facility] as she feels her swallowing has worsened since their last evaluation. Discussed that things could have worsened since her last evaluation and this may mean using her PEG for more than just meds, however this would be determined with re-evaluation. I agree with her previous GI that there is limited utility of repeating EGDs and more risk involved with anesthesia/ALS. She also is not presently a candidate for EGD given her current respiratory situation. Patient kindly expresses to me that she is "done with doctors, done with hospitals, done with testing." RN present during this conversation. She does note she has voiced her feelings, but has a hard time making family & providers understand that she is serious about it. She notes she wants to find a way to focus on quality of life and make everyone understand that. We discussed palliative care team and their utility. She is interested in a consult. I will reach out to her hospitalist to facilitate this. In the interim, would continue Protonix 40 mg BID. Supervising Physician Co-Signing Physician Notes Agree with CHRISSY Holden as above No plans for invasive GI workup at present Continue current therapy and supportive care Recommend Palliative care consult History of Present Illness Reason for Consultation: aspiration, history of schatzi's ring, reflux Attending Physician: Dallas Banegas MD History of Present Illness Patient is an 88 yo female with a past medical history of ALS. She was brought to the hospital by her family member after experiencing shortness of breath and coughing. She was found to have O2 sats in the 80s on RA. She was found to have an aspiration pneumonia, an elevated troponin, slightly elevated BNP. She was admitted for further treatment. GI has been consulted due to aspiration. Patient has seen GI in the past for this ([facility]). She has had numerous EGDs. There was an instance in 2020 of a nonobstructive Schatzki ring, but since that time the EGDs have not demonstrated any findings amenable to dilatation. She has a PEG in place at the recommendation from [facility] after her video swallow. She is only using this PEG for medications. She is not using the PEG for nutrition. Patient notes she eats a very modified diet. Patient notes to me that she is understanding of her disease process of ALS. She notes her previous diazo technician (Dr. Crowley) told her that she should not continue to have EGDs as there have been no findings that could be intervened upon and her severe pharyngeal dysphagia is likely due to the ALS. The patient notes that she is very "done with doctors, done with hospitals, done with testing." She notes she has tried to voice this to others but feels like no one is listening to her sometimes. Allergies Allergy/AdvReac Type Severity Reaction Status Date / Time chlorhexidine Allergy Intermediate RASH Verified 04/21/23 22:38 codeine Allergy Intermediate ITCHING/VIVIAN Verified 04/21/23 22:38 SEA Corticosteroids Allergy Intermediate STERIOD Verified 04/21/23 22:38 (Glucocorticoids) INJECTIONS - FLUSHING AND BLOTCHING REDNESS, ITCHY Iodinated Contrast Media Allergy Intermediate Rash/Hives Verified 04/21/23 22:38 morphine Allergy Intermediate ITCHY HIVES Verified 04/21/23 22:38 oxycodone Allergy Intermediate PERCOCET-ITCHING Verified 04/21/23 22:38 OF ARMS,SHOULDERS,GROGGY/GI UPSET shellfish derived Allergy Intermediate Rash Verified 04/21/23 22:38 Tetracyclines Allergy Intermediate Rash Verified 04/21/23 22:38 dipyridamole Allergy Unknown reaction Verified 04/21/23 22:38 unknown fenoprofen Allergy Unknown UNKNOWN Verified 04/21/23 22:38 PER [facility] MED LIST duloxetine AdvReac Severe SEDATION & Verified 04/21/23 22:38 BAD DREAMS mepivacaine AdvReac Unknown pt states Verified 04/21/23 22:38 "just didnt work" IVP DYE Allergy Intermediate Hives Uncoded 04/21/23 22:38 Home Medications Medication Instructions Recorded Confirmed Type mirtazapine 30 mg tablet 30 mg feeding tube HS 06/24/22 01/14/24 History riluzole 50 mg tablet 50 mg feeding tube BID 06/24/22 01/14/24 History Tube Feeding Water Flush #1 ea 06/30/22 Rx acetaminophen 500 mg tablet 1,000 mg feeding tube Q8H PRN Pain 04/21/23 01/14/24 History (Acetaminophen Extra Strength) azathioprine 50 mg tablet (Imuran) 50 mg feeding tube QAM 04/21/23 01/14/24 History baclofen 10 mg tablet 10 mg feeding tube BID 04/21/23 01/14/24 History cholecalciferol (vitamin D3) 50 50 mcg feeding tube DAILY 04/21/23 01/14/24 History mcg (2,000 unit) tablet (Vitamin D3) cyanocobalamin (vitamin B-12) 1,000 mcg feeding tube QAM 04/21/23 01/14/24 History 1,000 mcg tablet (Vitamin B-12) edaravone 105 mg/5 mL oral 0 mg feeding tube DIRECTED 04/21/23 01/14/24 History suspension (Radicava ORS) glycopyrrolate 1 mg tablet 1 mg feeding tube TID PRN 04/21/23 01/14/24 History Congestion naproxen 125 mg/5 mL oral 500 mg feeding tube BID 04/21/23 01/14/24 History suspension pantoprazole 40 mg tablet,delayed 40 mg PO QAM 04/21/23 01/14/24 History release potassium citrate 99 mg capsule 99 mg PO DAILY 04/21/23 01/14/24 History sertraline 100 mg tablet 100 mg feeding tube DAILY 04/21/23 01/14/24 History sodium phenylbutyrate 3 1 packet feeding tube DAILY 04/21/23 01/14/24 History gram-taurursodiol 1 gram oral powder packet (Relyvrio) hydrocodone 7.5 mg-acetaminophen 5 ml PO Q6H PRN pain #118 mL 04/22/23 01/14/24 Rx 325 mg/15 mL oral solution gabapentin 250 mg/5 mL oral 250 mg feeding tube BID 01/14/24 01/14/24 History solution Patient History Medical History ALS (amyotrophic lateral sclerosis) Anemia CHRONIC Anxiety Autoimmune hepatitis "MEDICATION INDUCED"= ON IMURAN Depression Encounter for pre-operative examination Gastrostomy tube in place GERD (gastroesophageal reflux disease) Hiatal hernia Hip pain PT REPORTS STIMULATOR HAS BEEN REMOVED History of anesthesia reaction difficulty waking History of esophageal dilatation 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 DATE OF DX - LONG TIME AGO PER PT ; PT UNSURE DETAILS - NO BLOOD THINNER Stroke 2011; RESIDUAL BALANCE/HEARING ISSUES; PARTIAL EPIGLOTTIS "PARALYSIS" SVT (supraventricular tachycardia) PT UNSURE Valvular heart disease MILD MR/MODERATE TR PT UNSURE Surgical History Fusion of spine LUMBAR X2 H/O elbow replacement RIGHT H/O neck surgery "plate in back of my neck"--normal ROM moving neck front and back History of appendectomy History of cataract surgery BILATERAL History of cholecystectomy History of colonoscopy History of esophagogastroduodenoscopy (EGD) most recent 03/22/21 [place] History of hysterectomy CARRI WITH BSO History of surgery 07/2018--removal of spinal cord stimulator History of tonsillectomy and adenoidectomy History of total hip arthroplasty B/L Status post insertion of spinal cord stimulator HX Family History Mother Family history of diabetes mellitus Sister Family history of diabetes mellitus Daughter Cancer COLON/LYMPHOMA Other No family history of adverse response to anesthesia Social History Smoking Status: Former smoker Tobacco Type: Cigarettes Second Hand Exposure: No; Do You Dip or Chew Tobacco: No; Tobacco Cessation Education Requested by Patient: No Hx Alcohol Use: Yes Alcohol type: wine Hx Substance Use: No Preferred Language: Yi Communication Ability: Effective Programmer Or Analyst Required: No Beliefs That Will Affect Care: L[employer] L[employer] Day Beliefs: Church marital status: / Current Living Situation: Alone Current Living Situation Comment: home alone, has home health nursing once/wk Other Information That Helps Us Care for You: No Feels Safe at Home: Yes Safety Concerns: Feels Safe At This Time Assistive Devices: Cane, Oxygen - at Night and Walker Review of Systems Constitutional: no fever and no chills Respiratory: no cough and no dyspnea Cardiovascular: no chest pain Gastrointestinal: no abdominal pain Integumentary: no problem reported Psychiatric: no problem reported Physical Exam Constitutional: well developed Respiratory: normal respiratory effort Cardiovascular: Rate/Rhythm: regular rate Musculoskeletal: Head/Neck/Chest: normocephalic Psychiatric: Orientation: alert and oriented x 3 Results & Data Vital Signs (Past 12 Hours) Vital Signs Temp Pulse Resp BP Pulse Ox O2 Del Method O2 Flow Rate 01/14/24 07:33 36.4 C L 68 16 114/67 90 Nasal Cannula 2 01/14/24 07:04 64 18 95 Nasal Cannula 1.5 01/14/24 00:42 81 16 92 Nasal Cannula 2 PG Care Time/CCT Total # of Minutes Spent Total Time Spent with Patient: Total time spent is greater than 50% in coordination of care (as documented) at patient's floor/unit and/or counseling patient: Coding Level of Care Code 70828 INT INP/OBS CARE 3/75MIN Diagnoses Aspiration pneumonia J69.0 ALS (amyotrophic lateral sclerosis) G12.[address] Z93.1
--- NOTE | 2024-01-14 16:22 | Hospitalist Progress Note ---
Date of Service January 14, 2024 Assessment & Plan (1) Aspiration pneumonitis: Plan: 88-year-old female with history of ALS, esophageal reflux, schisis ring, presenting with cough and shortness of breath which started this morning. Cough, shortness of breath, likely aspiration pneumonitis with hypoxia In the setting of ALS, history of esophageal reflux and Schatzi's ring Patient normally eats by mouth, uses PEG tube only for medication administration Presents with cough, shortness of breath that started this morning CT chest: 1. Dependent consolidations bilaterally may represent combination of atelectasis and pneumonia. 2. Bronchial wall thickening is concerning for bronchitis. CT head: No acute process IV Zosyn every 8 hours Xopenex/Atrovent nebs every 6 hours And hypertonic saline IV fluids Protonix 40 mg IV twice daily N.p.o. except small sips of water per patient request Speech therapy evaluation:Recommends n.p.o. at this point Patient states she does not prefer to have any oral intake except for ice chips because it is making her cough and aspiration symptoms worse She also declines PEG tube feeding at this time She would like to speak with palliative care service for possible transition into hospice service DVT prophylaxis Heparin SQ every 12 hours CODE STATUS DNR as per patient Disposition Lives with family at home plan of care discussed with patient and her son Sudhir at bedside in detail and at length all questions answered they are understanding, agreeable, comfortable with the plan of care Admission and Anticipated Discharge Date Admission Date: January 13, 2024 Subjective Follow-up for aspiration pneumonitis, hypoxia, etc. Seen sitting up in bed, comfortable, not in distress On 2 L of oxygen by nasal cannula Patient's son Sudhir visiting at the bedside States she feels about the same as yesterday BP elevated better, able to expectorate sputum No chest pain, fevers or chills Patient states she does not prefer to have any oral intake except for ice chips because it is making her cough and aspiration symptoms worse She also declines PEG tube feeding at this time She would like to speak with palliative care service for possible transition into hospice service No other new symptoms Review of Systems Review of Systems: all noted and negative except for above Physical Exam Physical Exam: General- oriented x 3, not in distress, speaks in sentences with no effort or accessory muscle use Eyes- anicteric Neck- no JVD Lungs- Positive crackles bilaterally Heart- normal rate, regular rhythm; no murmurs Abdomen- normal bowel sounds, nondistended, soft, nontender Extremities- no pretibial edema, no calf tenderness Neuro- alert, oriented x 3; no gross focal neurologic deficits Skin- warm & dry Results & Data Results & Data Vital Signs (Past 12 Hours) Vital Signs Temp Pulse Resp BP Pulse Ox O2 Del Method O2 Flow Rate 01/14/24 16:02 Nasal Cannula 2 01/14/24 15:36 36.8 C 79 20 109/61 91 Nasal Cannula 2 01/14/24 13:37 61 18 92 Nasal Cannula 2 01/14/24 07:33 36.4 C L 68 16 114/67 90 Nasal Cannula 2 01/14/24 07:04 64 18 95 Nasal Cannula 1.5 all noted and reviewed including below
[2024-01-14] MEDS: D5W AND NSS 1,000 ML IV SCH (16:41)
[2024-01-14] MEDS: SODIUM CHLOR 7% 4 ML NEB NEB SCH (19:24)
--- OUTSIDE RECORDS SUMMARY | 2024-01-14 21:38 | External Medical Summary | Summary of Care ---
Author Name Unknown Organization [facility] Address [address] [place] [address] Phone [phone] Care Team Providers Care Clothes Drier Repairer Name Role Phone Manish Roblero DO Primary Care Provider Reason for Visit * Reason Onset Date Comments Med Request 12/24/2023 Encounter Details Date Type Department Care Team (Late st Contact Info) Description 12/24/2023 Telephone Family Practice [facility] [address] [facility] [place] [address] Manish Roblero DO [address] [place] [address] Med Request Allergies Active Allergy Reactions Criticality Noted Date Comments Acetaminophen Low 10/29/2021 Other reaction(s): ITCHY ARMS/SHOULDERS, GROGGY Chlorhexidine High 12/22/2018 Other reaction(s): RASH Codeine 08/31/2015 Other reaction(s): itchy, nausea Dipyridamole Unknown 08/31/2015 Duloxetine High 12/22/2018 Other reaction(s): SEDATION & BAD DREAMS Duloxetine Hcl Psych complications 04/17/2017 Sedation and bad dreams Fenoprofen Unknown 08/31/2015 Iodinated Contrast Media 11/04/2021 Other reaction(s): rash/hives Ivp Dye Hives 05/11/2000 Morphine Sulfate Hives,Itching 01/28/2008 Oxycodone-Acetaminophen 06/04/2022 Other reaction(s): nausea upset stomach upset stomach Povidone Iodine 04/30/2021 Shellfish Allergy Rash 08/31/2015 Other reaction(s): welt Soap 04/30/2021 Tetracycline 05/11/2000 Other reaction(s): rash documented as of this encounter (statuses as of 12/29/2023) Medications Medication Sig Dispensed Refills Start Date End Date Status Cyanocobalamin (B-12) 1000 MCG TABS Take 1 Tablet by mouth in the morning. Pt taking 3000 mg daily. 0 Active Vitamin D3 50 MCG (1999) Oral Tablet Chewable Take by mouth 2,000 Units daily . 90 Tablet 3 09/26/2021 Active Famotidine 20 MG Oral Tablet (Pepcid)Indications: Gastroesophageal reflux disease without esophagitis Take by mouth 1 Tablet in the morning AND 1 Tablet before bedtime. 180 Tablet 3 05/20/2022 Active Baclofen 10 MG Oral Tablet (Lioresal) Take 1 Tablet by mouth in the morning and 1 Tablet at noon and 1 Tablet before bedtime. 0 Active Water For Irrigation, Sterile (FEED TUBE WATER) TF .MEDSUPPLY 0 06/30/2022 Acti ve Multivitamin Adult Oral Tablet 1 Tablet. 0 06/24/2022 Active Radicava ORS 105 MG/5ML Oral Suspension (Edaravone) 5 mL 3 01/06/2023 Active Relyvrio 3-1 GM Oral Packet (Phenylbutyrate-Taur ursodiol) 90 Each 3 01/06/2023 Active Sertraline HCl 100 MG Oral Tablet (Zoloft)Indications: ALS (amyotrophic lateral sclerosis) (HCC),Adjustment disorder with depressed mood Take 1/2 tablet by mouth or g-tube daily for 2 weeks then increase to 1 tablet by mouth/g tube daily. 90 Tablet 3 01/29/2023 Active Pantoprazole Sodium 40 MG Oral Tablet Delayed Release (Protonix) TAKE ONE TABLET BY MOUTH IN THE MORNING 30 MINUTES BEFORE THE FIRST MEAL OF THE DAY AND ONE TABLET BY MOUTH BEFORE BEDTIME. DONOT CRUSH, SPLIT OR CHEW THE TABLET. 180 Tablet 1 04/01/2023 Active Riluzole 50 MG Oral Tablet (Rilutek)Indications :ALS (amyotrophic lateral sclerosis) (HCC),Dysphagia, unspecified type,Dysarthria TAKE ONE TABLET BY MOUTH TWICE A DAY 60 Tablet 11 04/15/2023 Active Hydrocortisone 2.5 % External Cream APPLY TOPICALLY TO AFFECTED AREA 2 TIMES A DAY 30 g 0 08/24/2023 Active Mirtazapine 30 MG Oral Tablet (Remeron)Indications :Adjustment disorder with depressed mood TAKE ONE TABLET BY MOUTH AT BEDTIME 90 Tablet 1 08/31/2023 Active azaTHIOprine 50 MG Oral Tablet (Imuran)Indications: Autoimmune hepatitis (HCC) TAKE ONE TABLET BY MOUTH EVERY MORNING 90 Tablet 1 09/15/2023 Active Diclofenac Sodium 1 % External Gel (Voltaren)Indication s:Polyarthralgia Apply 4 g topically to affected area 4 times a day as needed for Pain, Moderate. Apply to the affected area 150 g 5 10/14/2023 Active Gabapentin 300 MG/6ML Oral SolutionIndications: ALS (amyotrophic lateral sclerosis) (HCC),Neuropathic pain Take 6 mL by mouth 3 times a day as needed for Pain, Severe or Pain, Moderate. 470 mL 3 12/14/2023 Active documented as of this encounter (statuses as of 12/29/2023) Active Problems Problem Noted Date Diagnosed Date Abdominal aortic aneurysm (AAA) without rupture 04/30/2023 Polyarthralgia 01/06/2023 Malaise and fatigue 12/11/2022 Rash and nonspecific skin eruption 12/11/2022 ALS (amyotrophic lateral sclerosis) 06/23/2022 Aortic ectasia, abdominal 10/10/2021 Overview: 3.3 cm AAA noted on CT Chest 09/05/21 Myelopathy 09/26/2021 Myasthenia gravis 09/23/2021 Spondylolisthesis of lumbar region 01/25/2021 Spondylosis without myelopat hy or radiculopathy, sacral and sacrococcygeal region 01/25/2021 Generalized weakness 12/19/2020 Shortness of breath 12/19/2020 Senile osteoporosis 09/14/2019 Prediabetes 12/27/2018 Overview: Per Prediabetes protocol #1 Dysphagia 11/26/2017 Overview: With aspiration on video Nocturnal hypoxemia 10/05/2015 Overview: On O2 nc 2L/min DNR (do not resuscitate) 07/17/2014 Schatzki's ring 12/05/2013 Adjustment disorder with depressed mood 01/08/20 11 Autoimmune hepatitis 06/18/2006 Esophageal reflux Hiatal hernia documented as of this encounter (statuses as of 12/29/2023) Resolved Problems Problem Noted Date Diagnosed Date Resolved Date Altered mental status 12/19/20202021 Nocturnal hypoxia 02/26/2018 08/31/2018 Status post right elbow joint replacement 09/24/2017 08/31/2018 Lumbar spinal stenosis 03/12/201605/25 Abnormality of gait 03/12/2016 12/30/19 17 Anxiety 12/13/2015 12/29/2016 History of hepatitis 07/18/2014 017 Overview: Autoimmune H/O arthroplasty 07/17/2014 08/31/2018 Itching 11/23/2013 12/29/2016 Anemia 02/06/2010 09/24/2017 Impacted cerumen 02/06/2010 12/29/2016 Dyslipidemia, goal to be determined 07/30/2009 09/24/2017 Overview: Per Lipid Taxonomy. Examination following surgery 11/22/2007 10/10/2008 ADVANCE DIRECTIVE INFORMATION 11/10/2007 08/31/2018 Overview: Yes-advised to bring copy in to be scanned into EMR. Cystocele, midline 11/10/2007 7 Certain adverse effects, not elsewhere classified, other 10/31/2007 10/10/2008 Pruritic disorder 10/31/2007 10/10/2008 Urticaria 10/31/2007 12/29/2016 GENERALIZED ANXIETY DIS 03/02/2003 02/0 10/2020 Atrial fibrillation 01/18/2003 08/04/20 12 Herpes zoster 10/10/2008 Hepatitis 06/18/2006 Diverticulosis of colon 08/17 PURE HYPERCHOLESTEROLEM 07/17 Overview: Per Lipid Taxonomy. History of peptic ulcer disease 08/31/2018 Overview: ICD-10 update of inactive term Hematuria 12/29/2016 Overview: ICD-10 update of inactive term Intestinal bacterial overgrowth 05/25/2017 Altitude sickness 12/29/2016 documented as of this encounter (statuses as of 12/29/2023) Immunizations Name Administration Dates Next Due COVID-19 mRNA, LNP-s, No Pre serve, 2-Dose Series (HackerHAND) 05/24/2021,11/03/2020,10/13/2020 Pneumococcal Conjugate Vacc, 13 Valent (Prevnar) 09/07/2014 Pneumococcal Polysaccharide PPV23 (Pneumovax) 03/13/2017 Seasonal Influenza, PF, 6 M & above, IM , (FluLaval or Fluzone) 05/22/2020,07/07/2018 Seasonal Influenza, Quadriva lent Hd (Fluzone Hd) 07/06/2023,05/08/2022,07/30/2021 Seasonal Influenza, Quadriva lent Hd, 65+ Yrs 09/14/2023 Seasonal Influenza, Quadriva lent, No Preserve, IM 05/15/2016,06/21/2015 Seasonal Influenza, Split, I IV3, With Preserve, Inj 05/02/2014,06/27/2013,04/23/2012,05/14 Seasonal Influenza, Trivalen t, Adjuvanted, 65+ yrs 07/22/2019 Seasonal Influenza, Trivalen t, High Dose, No Preserve, IM 05/25/2017 TD, Preservative Free 10/10/2008 TDAP (age 10 and older)(Boostrix) 03/22/2020 Varicella Zoster Vaccine (Adult) 10/10/2008 Zoster Vaccine Recombinant (Shingrix) 01/25/2021 ,09/15/2019 documented as of this encounter Social History Tobacco Use Types Packs/Day Years Used Date Smoking Tobacco: Former Cigarettes 2 15 0 09/30/1957 - 09/30/1972 Smokeless Tobacco: Never Alcohol Use Standard Drinks/Week Comments Yes 0 (1 standard drink = 0.6 oz pur e alcohol) rare glass of wine PHQ-2 Answer Date Recorded PHQ Adult Total Score 0 07/30/2021 Hunger Vital Sign Answer Date Recorded Worried About Running Out of Food in the Last Ye ar Never true 04/21/2019 Ran Out of Food in the Last Year Never true 04/21/2019 Sex and Gender Information Value Date Recorded Sex Assigned at Female 09/14/2019 8:52 AM EST Gender Identity Female 09/14/2019 8:52 AM EST Sexual Orientation Straight 09/14/2019 8: 52 AM EST Job Start Date Occupation Industry Not on file Not on file Not on file documented as of this encounter Miscellaneous Notes * Telephone Encounter - Virgie Stephens LPN - 12/29/2023 11:41 AM EDT Spoke with patient. Patient confirms she did request a refill for Naproxen. Dr. House ordered this in the past. Recommended patient call Dr. House's office for a refill of this medication. Patient thanked staff for the help and will reach out to Dr. House's office in [place]. * Telephone Encounter - Heidi Gutierrez CPhT - 12/24/2023 2:32 PM EDT Pt insurance is calling stating that Dr. Diandra House prescribed Naproxen 125mg solution to the pt and they are asking for a refill for the medication to be sent to [id number] because it would be cheaper for the pt. Insurance did not have directions on the rx. Please advise Thank you, Zee Gutierrez Speech Therapist Early [facility] ([facility]) 12/24/2023,2:38 PM documented in this encounter Plan of Treatment Upcoming Encounters Date Type Department Care Team (Late st Contact Info) Description 12/31/2023 9:00 AM EDT Office Visit Family [facility] [address] [place] [address] Manish Roblero, [address] [place] [address] Health Maintenance Due Date Last Done Comments Depression Screening 07/30/2022 07/30/2021 *BISPHONATE OR OTHER ACCEPTABLE MEDICATION NEEDED FOR OSTEOPOROSIS (REFER TO SMARTSET #1146) 12/05/2022 COVID-19 Vaccine ( season) 2023 05/24/2021, 11/03/2020, 10/13/2020 HbA1c 06/23/2023 06/23/2022, 02/15, 03/15/2020, Additional history exists DXA Scan 02/18/2025 02/18/2023, 07/18, 06/29/2018, Additional history exists DTaP,Tdap,and Td Vaccines (2 - Td or Tdap) 03/22/2030 03/22/2020, 10/10/2008 Pneumococcal Vaccine: 65+ Years Completed 03/13/2017, 09/12/2016, 09/07/2014, Additional history exists Zoster Vaccines Completed 01/25/2021, 01/15, 09/15/2019, Additional history exists VITAMIN D LEVEL ONCE IN A LIFETIME-USE SMARTSET# [id number] Completed 12/12/2021, 11/30/2019, 04/08/2019, Additional history exists Influenza Vaccine (FLU shot) Completed , 07/06/2023, 05/08/2022, Additional history exists GARDASIL-HPV IMMUNIZATION SERIES Aged Out No longer eligible based on patient's age to complete this topic Hepatitis B Aged Out No longer eligi ble based on patient's age to complete this topic MENINGOCOCCAL (MENACTRA/MENVEO) Aged Out No longer eligible based on patient's age to complete this topic documented as of this encounter Medical Devices Implanted Type Area Director Of Acquisitions Device Identifier Shelf Expiration Date Model / Serial / Lot Mesh Pelvic Gynamesh Gpsl - [id number] Implanted:Qty: 1 on 11/22/2007 at OR [facility] N/A: Vagina [employer]W [employer] ANDREW 08/17/2011 GPSL / / [id number] documented as of this encounter Advance Directives Documents on File Type Date Recorded Patient Clinical Educator Expl anation Power of Marketing Programs Specialist 10/07/2007 Latest Code Status on File Code Status Date Activated Date Inactivated Comments Full Code 11/23/2013 7:56 AM 11/23/2013 4:01 PM This or kinjal reflects the patients wishes and were consensually agreed upon. Code Status History Code Status Date Activated Date Inactivated Comments Full Code 11/23/2007 12:38 AM 11/25/2007 1:34 PM Full Code 11/22/2007 4:51 PM 11/23/2007 12:38 AM Care Teams Clothes Drier Repairer Relationship Specialty Start Date End Date Manish Roblero DO [address] [place] [address] PCP - General Family Medicine 09/14/19 documented as of this encounter
--- OUTSIDE RECORDS SUMMARY | 2024-01-14 21:38 | External Medical Summary | Summary of Care ---
Author Name Unknown Organization [facility] Address [address] [place] [address] Phone [phone] Care Team Providers Care Forestry Laborer Name Role Phone Manish Roblero DO Primary Care Provider Reason for Visit * Reason Comments Abdominal Pain Pt c/o R sided abdom inal pain under ribs x 4 wks. Pt denies pain upon urination, vomiting, and constipation or diarrhea. Pt notes L sided abdominal swelling x 3 wks. Denies pain on L side of abdomen. No fever or chills noted. Encounter Details Date Type Department Care Team (Late st Contact Info) Description 12/31/2023 9:00 AM EDT Office Visit Family [facility] [address] [facility] [place] [address] Manish Roblero DO [address] [facility] [place] [address] ALS (amyotrophic lateral sclerosis) ([facility])*; DNR (do not resuscitate); Myasthenia gravis ([facility]) Allergies Active Allergy Reactions Criticality Noted Date [...] as of this encounter (statuses as of 12/31/2023) Medications Medication Sig Dispensed Refills Start Date End Date Status Cyanocobalamin (B-12) 1000 MCG TABS Take 1 Tablet by mouth in the morning. Pt taking 3000 mg daily. 0 Active Vitamin D3 50 MCG (2000 UT) Oral Tablet Chewable Take by mouth 2,000 Units daily . 90 Tablet 3 09/26/2021 Active Famotidine 20 MG Oral Tablet (Pepcid)Indication s:Gastroesophageal reflux disease without esophagitis Take by mouth 1 Tablet in the morning AND 1 Tablet before bedtime. 180 Tablet 3 05/20/2022 Active Baclofen 10 MG Oral Tablet (Lioresal) Take 1 Tablet by mouth in the morning and 1 Tablet at noon and 1 Tablet before bedtime. 0 Active Water For Irrigation, Sterile (FEED TUBE WATER) TF .MEDSUPPLY 0 06/30/2022 Active Multivitamin Adult Oral Tablet 1 Tablet. 0 06/24/2022 Active Radicava ORS 105 MG/5ML Oral Suspension (Edaravone) 5 mL 3 01/06/2023 Active Relyvrio 3-1 GM Oral Packet (Phenylbutyrate-Ta urursodiol) 90 Each 3 01/06/2023 Active Sertraline HCl 100 MG Oral Tablet (Zoloft)Indication s:ALS (amyotrophic lateral sclerosis) (HCC),Adjustment disorder with depressed [...] 04/01/2023 Active Riluzole 50 MG Oral Tablet (Rilutek)Indicatio ns:ALS (amyotrophic lateral sclerosis) (HCC),Dysphagia, unspecified type,Dysarthria TAKE ONE TABLET BY MOUTH TWICE A DAY 60 Tablet 11 04/15/2023 Active Additional Information Patient not taking.Reported on 12/31/2023 Hydrocortisone 2.5 % External Cream APPLY TOPICALLY TO AFFECTED AREA 2 TIMES A DAY 30 g 0 08/24/2023 Active Mirtazapine 30 MG Oral Tablet (Remeron)Indicatio ns:Adjustment disorder with depressed mood TAKE ONE TABLET BY MOUTH AT BEDTIME 90 Tablet 1 08/31/2023 Active azaTHIOprine 50 MG Oral Tablet (Imuran)Indication s:Autoimmune hepatitis (HCC) TAKE ONE TABLET BY MOUTH EVERY MORNING 90 Tablet 1 09/15/2023 Active Diclofenac Sodium 1 % External Gel (Voltaren)Indicati ons:Polyarthralgia Apply 4 g topically to affected area 4 times a day as needed for Pain, Moderate. Apply to the affected area 150 g 5 10/14/2023 Active Gabapentin 300 MG/6ML Oral SolutionIndication s:ALS (amyotrophic lateral sclerosis) (HCC),Neuropathic pain Take 6 mL by mouth 3 times a day as needed for Pain, Severe or Pain, Moderate. 470 mL 3 12/14/2023 Active Naproxen 125 MG/5ML Oral Suspension (Naprosyn) Take 5 mL by mouth in the morning and 5 mL at noon and 5 mL before bedtime. 0 12/04/2023 Active Glycopyrrolate 1 MG Oral Tablet (Robinul) Take 1 Tablet by mouth every morning. 0 11/07/2022 09/23/2024 Active documented as of this encounter (statuses as of 12/31/2023) Active Problems Problem Noted Date Diagnosed Date [...] Shortness of breath 12/19/2020 Senile osteoporosis 09/14/2019 Dysphagia 11/26/2017 Overview: With aspiration on video Nocturnal hypoxemia 10/05/2015 Overview: On O2 nc 2L/min DNR (do not resuscitate) 07/17/2014 Schatzki's ring 12/05/2013 Adjustment disorder with depressed mood 01/08/20 11 Autoimmune hepatitis 06/18/2006 Esophageal reflux Hiatal hernia documented as of this encounter (statuses as of 12/31/2023) Resolved Problems Problem Noted Date Diagnosed Date Resolved Date Altered mental status 12/19/20202021 Prediabetes 12/27/2018 12/31/2023 Overview: Per Prediabetes protocol #1 Nocturnal hypoxia 02/26/2018 08/31/2018 Status post right [...] as of this encounter (statuses as of 12/31/2023) Immunizations Name Administration Dates Next Due COVID-19 mRNA, LNP-s, No Pre serve, 2-Dose Series (Qivivo) 05/24/2021,11/03/2020,10/13/2020 Pneumococcal Conjugate Vacc, 13 Valent (Prevnar) [...] 0 [birth year]/30/1957 - 09/30/1972 Smokeless Tobacco: Never Tobacco Cessation:Counseling Given: Not Answered Alcohol Use Standard Drinks/Week Comments Yes 0 [...] on file documented as of this encounter Last Filed Vital Signs Vital Sign Reading Time Taken Comments Blood Pressure 104/60 12/31/2023 8:50 AM EDT Pulse 75 12/31/2023 8:50 AM EDT Temperature 36.5 C (97.7 F) 12/31/2023 8 :50 AM EDT Respiratory Rate 16 12/31/2023 8:50 AM EDT Oxygen Saturation 93% 12/31/2023 8:5 0 AM EDT Inhaled Oxygen Concentration - - Weight 47.2 kg (104 lb) 12/31/2023 8:50 AM EDT wt this am per pt reports Height - - Body Mass Index 17.31 11/20/2021 2:05 PM EDT documented in this encounter Progress Notes * Manish Roblero, - 12/31/2023 9:40 AM EDT Images from the original note were not included. Assessment and Plan ALS (amyotrophic lateral sclerosis) (HCC) Ongoing, continue to monitor And support from our standpoint Continue palliative care And plan for video visits q6 months DNR (do not resuscitate) In chart Myasthenia gravis (HCC) stable History of Present Illness [id number] Shankar is a 88 year old female that presents for Abdominal Pain (Pt c/o R sided abdominal pain under ribs x 4 wks. Pt denies pain upon urination, vomiting, and constipation or diarrhea. Pt notes L sided abdominal swelling x 3 wks. Denies pain on L side of abdomen. No fever or chills noted.) Presents today in f/u And for abdominal pain ALS - progressing but patient still tolerating Soft food, able to communicate, and manages her bowels Is on palliative care through [facility] And is reluctant to go on hospice due to desire Not to lose her PCP here (or) Physical Exam Vitals: 12/31/23 0850 Temp: 36.5 C (97.7 F) Pulse: 75 Resp: 16 SpO2: 93% BP: 104/60 Physical Exam Constitutional: General: She is not in acute distress. Appearance: She is well-developed. Abdominal: General: Abdomen is flat. Bowel sounds are normal. There is no distension. There are no signs of injury. Comments: G-tube in place without erythema or skin breakdown Neurological: Mental Status: She is alert. Wrap-Up Follow-up: Return in about 6 months (around 07/02/2024). | Check-out note: Every 6 month video visits 40 min ok to use private Time: Total time today was 42 minutes excluding any time spent in the performance of separately billed services. documented in this encounter Nursing Notes * Lenora Morse LPN - 12/31/2023 8:50 AM EDT The patient has been properly identified by confirmation of name and date of . Chief Complaint Patient presents with Abdominal Pain Pt c/o R sided abdominal pain under ribs x 4 wks. Pt denies pain upon urination, vomiting, and constipation or diarrhea. Pt notes L sided abdominal swelling x 3 wks. Denies pain on L side of abdomen.No fever or chills noted. documented in this encounter Plan of Treatment Upcoming Encounters Date Type Department Care Team (Late st Contact Info) Description 07/13/2024 10:40 AM EST Telemedicine Family Practice [facility] [address] [place] [address] Manish Roblero, [address] [place] [address] Health Maintenance Due Date Last Done Comments [...] D LEVEL ONCE IN A LIFETIME-USE SMARTSET# [id number] Completed 12/12/2021, 11/30/2019, 04/08/2019, Additional history exists [...] this encounter Medical Devices Implanted Type Area Ct Scan Technician Device Identifier Shelf Expiration Date Model / Serial / Lot Mesh Pelvic Gynamesh Gpsl - [id number] Implanted:Qty: 1 on 11/22/2007 at OR [facility] [place] N/A: Vagina [employer]W [employer] ANDREW 08/17/2011 GPSL / / [id number] documented as of this encounter Visit Diagnoses Diagnosis ALS (amyotrophic lateral sclerosis) ([facility])- Primary Amyotrophic lateral sclerosis DNR (do not resuscitate) Do not resuscitate status Myasthenia gravis ([facility]) Myasthenia gravis without exacerbation documented in this encounter Advance Directives Documents on File Type Date Recorded Patient Director Of Maintenance Expl anation Power of Flight Agent 10/07/2007 Latest Code Status on File Code Status Date Activated Date Inactivated Comments Full Code 11/23/2013 7:56 AM 11/23/2013 4:01 PM This or kinjal reflects the patients wishes and were consensually agreed upon. Code Status History Code Status Date Activated Date Inactivated Comments Full Code 11/23/2007 12:38 AM 11/25/2007 1:34 PM Full Code 11/22/2007 4:51 PM 11/23/2007 12:38 AM Care Teams Forestry Laborer Relationship Specialty Start Date End Date Manish Roblero DO [address] [place] [address] PCP - General Family Medicine 09/14/19 documented as of this encounter"
--- OUTSIDE RECORDS SUMMARY | 2024-01-14 21:38 | External Medical Summary | Summary of Care ---
Author Name Unknown Organization [facility] Address [address] [place] [address] Phone [phone] Care Team Providers Care Clay Puddler Name Role Phone Raquel Roblero DO Primary Care Provider Reason for Visit * Reason Comments eRx-Medication Refill Encounter Details Date Type Department Care Team (Late st Contact Info) Description 01/12/2024 Refill Family Practice [facility] [address] [place] [address] Raquel Roblero DO [address] [place] [address] ALS (amyotrophic lateral sclerosis) (HCC); Adjustment disorder with depressed mood Allergies Active Allergy Reactions Criticality Noted Date [...] as of this encounter (statuses as of 01/13/2024) Medications Medication Sig Dispensed Refills Start Date End Date Status Cyanocobalamin (B-12) 1000 MCG TABS Take 1 Tablet by mouth in the morning. Pt taking 3000 mg daily. Active Vitamin D3 50 MCG (1999 UT) Oral Tablet Chewable Take by mouth 2,000 Units daily . 90 Tablet 3 09/26/2021 Active Famotidine 20 MG Oral Tablet (Pepcid)Indicati ons:Gastroesopha geal reflux disease without esophagitis Take by mouth 1 Tablet in the morning AND 1 Tablet before bedtime. 180 Tablet 3 05/20/2022 Active Baclofen 10 MG Oral Tablet (Lioresal) Take 1 Tablet by mouth in the morning and 1 Tablet at noon and 1 Tablet before bedtime. Active Water For Irrigation, Sterile (FEED TUBE WATER) TF .MEDSUPPLY 06/30/2022 Active Multivitamin Adult Oral Tablet 1 Tablet. 06/24/2022 Active Radicava ORS 105 MG/5ML Oral Suspension (Edaravone) 5 mL 3 01/06/2023 Active Relyvrio 3-1 GM Oral Packet (Phenylbutyrate- Taurursodiol) 90 Each 3 01/06/2023 Active Pantoprazole Sodium 40 MG Oral Tablet Delayed Release (Protonix) TAKE ONE TABLET BY MOUTH IN THE MORNING 30 MINUTES BEFORE THE FIRST MEAL OF THE DAY AND ONE TABLET BY MOUTH BEFORE BEDTIME. DONOT CRUSH, SPLIT OR CHEW THE TABLET. 180 Tablet 1 04/01/2023 Active Riluzole 50 MG Oral Tablet (Rilutek)Indicat ions:ALS (amyotrophic lateral sclerosis) (HCC),Dysphagia, unspecified type,Dysarthria TAKE ONE TABLET BY MOUTH TWICE A DAY 60 Tablet 11 04/15/2023 Active Additional Information Patient not taking.Reported on 12/31/2023 Hydrocortisone 2.5 % External Cream APPLY TOPICALLY TO AFFECTED AREA 2 TIMES A DAY 30 g 08/24/2023 Active azaTHIOprine 50 MG Oral Tablet (Imuran)Indicati ons:Autoimmune hepatitis (HCC) TAKE ONE TABLET BY MOUTH EVERY MORNING 90 Tablet 1 09/15/2023 Active Diclofenac Sodium 1 % External Gel (Voltaren)Indica tions:Polyarthra lgia Apply 4 g topically to affected area 4 times a day as needed for Pain, Moderate. Apply to the affected area 150 g 5 10/14/2023 Active Gabapentin 300 MG/6ML Oral SolutionIndicati ons:ALS (amyotrophic lateral sclerosis) (HCC),Neuropathi c pain Take 6 mL by mouth 3 times a day as needed for Pain, Severe or Pain, Moderate. 470 mL 3 12/14/2023 Active Naproxen 125 MG/5ML Oral Suspension (Naprosyn) Take 5 mL by mouth in the morning and 5 mL at noon and 5 mL before bedtime. 12/04/2023 Active Glycopyrrolate 1 MG Oral Tablet (Robinul) Take 1 Tablet by mouth every morning. 11/07/2022 5 Active Mirtazapine 30 MG Oral Tablet (Remeron)Indicat ions:Adjustment disorder with depressed mood TAKE ONE TABLET BY MOUTH AT BEDTIME 90 Tablet 1 01/10/2024 Active Sertraline HCl 100 MG Oral Tablet (Zoloft)Indicati ons:ALS (amyotrophic lateral sclerosis) (HCC),Adjustment disorder with depressed mood TAKE 1/2 TABLET BY MOUTH OR G-TUBE DAILY FOR 2 WEEKS THEN INCREASE TO 1 TABLET BY MOUTH/G TUBE DAILY 90 Tablet 3 01/13/2024 Active Sertraline HCl 100 MG Oral Tablet (Zoloft)Indicati ons:ALS (amyotrophic lateral sclerosis) (HCC),Adjustment disorder with depressed mood Take 1/2 tablet by mouth or g-tube daily for 2 weeks then increase to 1 tablet by mouth/g tube daily. 90 Tablet 3 01/29/2023 4 Discontinued documented as of this encounter (statuses as of 01/13/2024) Active Problems Problem Noted Date Diagnosed Date [...] as of this encounter (statuses as of 01/13/2024) Resolved Problems Problem Noted Date Diagnosed Date [...] Urticaria 10/31/2007 12/29/2016 GENERALIZED ANXIETY DIS 03/02/2003 02/10/2020 Atrial fibrillation 01/18/2003 08/04/20 12 Herpes zoster 10/10/2008 Hepatitis 06/18/2006 Diverticulosis of colon 08/17 PURE HYPERCHOLESTEROLEM 07/17 Overview: Per Lipid Taxonomy. History of peptic ulcer disease 08/31/2018 Overview: ICD-10 update of inactive term Hematuria 12/29/2016 Overview: ICD-10 update of inactive term Intestinal bacterial overgrowth 05/25/2017 Altitude sickness 12/29/2016 documented as of this encounter (statuses as of 01/13/2024) Immunizations Name Administration Dates Next Due COVID-19 mRNA, LNP-s, No Pre serve, 2-Dose Series (Shopow) 05/24/2021,11/03/2020,10/13/2020 Pneumococcal Conjugate Vacc, 13 Valent (Prevnar) [...] encounter Miscellaneous Notes * Telephone Encounter - Iesha Mcclendon RPh - 01/13/2024 12:17 PM EDTSigned Prescriptions: Disp Refills Sertraline HCl 100 MG Oral Tablet (Zoloft) 90 Tab*3 Sig: TAKE 1/2 TABLET BY MOUTH OR G-TUBE DAILY FOR 2 WEEKS THEN INCREASE TO 1 TABLET BY MOUTH/G TUBE DAILYAuthorizing Provider: RAQUEL ROBLERO User: IESHA MCCLENDON documented in this encounter Plan of Treatment Upcoming Encounters Date Type Department Care Team (Late st Contact Info) Description 07/13/2024 10:40 AM EST Telemedicine Family Practice [facility] [address] [place] [address] Raquel Roblero DO [address] [place] [address] Health Maintenance Due Date Last Done Comments Depression Screening 07/30/2022 07/30/2021 *BISPHONATE OR OTHER ACCEPTABLE MEDICATION NEEDED FOR OSTEOPOROSIS (REFER TO SMARTSET #1146) 12/05/2022 COVID-19 Vaccine ( season) 2023 05/24/2021, 11/03/2020, 10/13/2020 DXA Scan 02/18/2025 02/18/2023, 07/18, 06/29/2018, Additional history exists DTaP,Tdap,and Td Vaccines (2 - Td or Tdap) 03/22/2030 03/22/2020, 10/10/2008 Pneumococcal Vaccine: 65+ Years Completed 03/13/2017, 09/12/2016, 09/07/2014, Additional history exists Zoster Vaccines Completed 01/25/2021, 01/15, 09/15/2019, Additional history exists VITAMIN D LEVEL ONCE IN A LIFETIME-USE SMARTSET# 87134 Completed 12/12/2021, 11/30/2019, 04/08/2019, Additional history exists [...] this encounter Medical Devices Implanted Type Area Administration Manager Device Identifier Shelf Expiration Date Model / Serial / Lot Mesh Pelvic Gynamesh Gpsl - [id number] Implanted:Qty: 1 on 11/22/2007 at OR [facility] N/A: Vagina ANDREW & ANDREW 08/17/2011 GPSL / / [id number] documented as of this encounter Visit Diagnoses Diagnosis ALS (amyotrophic lateral sclerosis) (HCC) Amyotrophic lateral sclerosis Adjustment disorder with depressed mood documented in this encounter Advance Directives Documents on File Type Date Recorded Patient Lard Tub Washer Expl anation Power of Elementary Principal 10/07/2007 * Full Code (Latest Code Status on File) Date Activated Date Inactivated Comments 11/23/2013 7:56 AM 11/23/2013 4:01 PM This order ref lects the patients wishes and were consensually agreed upon. * Full Code Date Activated Date Inactivated Comments 11/23/2007 12:38 AM 11/25/2007 1:34 PM * Full Code Date Activated Date Inactivated Comments 11/22/2007 4:51 PM 11/23/2007 12:38 AM Care Teams Clay Puddler Relationship Specialty Start Date End Date Raquel Roblero DO [address] [place] [address] PCP - General Family Medicine 09/14/19 documented as of this encounter
--- OUTSIDE RECORDS SUMMARY | 2024-01-14 21:38 | External Medical Summary | Summary of Care ---
Author Name Unknown Organization [facility] Address [address] [place] [address] Phone [phone] Care Team Providers Care Furnace Unloader Name Role Phone Manish Roblero DO Primary Care Provider Reason for Visit * Reason Onset Date Comments Med Request 12/24/2023 Encounter Details Date Type Department Care Team (Late st Contact Info) Description 12/24/[address] [facility] [address] [facility] [place] [address] Manish Roblero DO [address] [place] [address] Med Request Allergies Active Allergy Reactions Criticality [...] mRNA, LNP-s, No Pre serve, 2-Dose Series (AccuVein) 05/24/2021,11/03/2020,10/13/2020 Pneumococcal Conjugate Vacc, 13 Valent (Prevnar) [...] reach out to Dr. House's office in [place]. * Telephone Encounter - Heidi Gutierrez CPhT - 12/24/2023 2:32 PM EDT Pt insurance is calling stating that Dr. Diandra House prescribed Naproxen 125mg solution to the pt and they are asking for a refill for the medication to be sent to [id number] because it would be cheaper for the pt. Insurance did not have directions on the rx. Please advise Thank you, Zee Gutierrez Sample Puller [facility] ([facility]) 12/24/2023,2:38 PM documented in this encounter Plan of Treatment Upcoming Encounters Date Type Department Care Team (Late st Contact Info) Description 12/31/2023 9:00 AM EDT Office Visit Family [facility] [address] [place] [address] Manish Roblero, [address] [place] [address] Health Maintenance Due Date Last Done Comments [...] D LEVEL ONCE IN A LIFETIME-USE SMARTSET# [id number] Completed 12/12/2021, 11/30/2019, 04/08/2019, Additional history exists [...] this encounter Medical Devices Implanted Type Area Liaison Planner Device Identifier Shelf Expiration Date Model / Serial / Lot Mesh Pelvic Gynamesh Gpsl - [id number] Implanted:Qty: 1 on 11/22/2007 at OR [facility] [place] N/A: Vagina ANDREW & ANDREW 08/17/2011 GPSL / / [id number] documented as of this encounter Advance Directives Documents on File Type Date Recorded Patient Auto Fleet Manager Expl anation Power of Micro Computer Data Processor 10/07/2007 Latest Code Status on File Code Status Date Activated Date Inactivated Comments Full Code 11/23/2013 7:56 AM 11/23/2013 4:01 PM This or kinjal reflects the patients wishes and were consensually agreed upon. Code Status History Code Status Date Activated Date Inactivated Comments Full Code 11/23/2007 12:38 AM 11/25/2007 1:34 PM Full Code 11/22/2007 4:51 PM 11/23/2007 12:38 AM Care Teams Furnace Unloader Relationship Specialty Start Date End Date Manish Roblero DO [address] [place] [address] PCP - General Family Medicine 09/14/19 documented as of this encounter
--- OUTSIDE RECORDS SUMMARY | 2024-01-14 21:38 | External Medical Summary | Summary of Care ---
Author Name Unknown Organization [facility] Address [address] [place] [address] Phone [phone] Care Team Providers Care Full Decator Operator Name Role Phone Manish Roblero DO Primary Care Provider Reason for Visit * Reason Onset Date Comments Appointment 09/30/2023 Declined appt fo r early October says she was told if she called someone would fit her in . She's requesting KAN Encounter Details Date Type Department Care Team (Late Contact Info) Description 09/30/2023 Telephone Family Practice [facility] [address] [place] [address] Manish Roblero DO [address] [facility] [place] [address] Appointment (Declined appt for early October... Allergies Active Allergy Reactions Criticality Noted Date [...] as of this encounter (statuses as of 12/30/2023) Medications Medication Sig Dispensed Refills Start Date End Date Status Cyanocobalamin (B-12) 1000 MCG TABS Take 1 Tablet by mouth in the morning. Pt taking 3000 mg daily. 0 Active Vitamin D3 50 MCG (1999) Oral Tablet Chewable Take by mouth 2,000 Units daily . 90 Tablet 3 09/26/2021 Active Famotidine 20 MG Oral Tablet (Pepcid)Indicatio ns:Gastroesophage al reflux disease without esophagitis Take by mouth [...] 01/06/2023 Active Relyvrio 3-1 GM Oral Packet (Phenylbutyrate-T aurursodiol) 90 Each 3 01/06/2023 Active Sertraline HCl 100 MG Oral Tablet (Zoloft)Indicatio ns:ALS (amyotrophic lateral sclerosis) (HCC),Adjustment disorder with depressed [...] 04/01/2023 Active Riluzole 50 MG Oral Tablet (Rilutek)Indicati ons:ALS (amyotrophic lateral sclerosis) (HCC),Dysphagia, unspecified type,Dysarthria TAKE ONE TABLET BY MOUTH TWICE A DAY 60 Tablet 11 04/15/2023 Active Hydrocortisone 2.5 % External Cream APPLY TOPICALLY TO AFFECTED AREA 2 TIMES A DAY 30 g 0 08/24/2023 Active Mirtazapine 30 MG Oral Tablet (Remeron)Indicati ons:Adjustment disorder with depressed mood TAKE ONE TABLET BY MOUTH AT BEDTIME 90 Tablet 1 08/31/2023 Active azaTHIOprine 50 MG Oral Tablet (Imuran)Indicatio ns:Autoimmune hepatitis (HCC) TAKE ONE TABLET BY MOUTH EVERY MORNING 90 Tablet 1 09/15/2023 Active Gabapentin 300 MG/6ML Oral SolutionIndicatio ns:ALS (amyotrophic lateral sclerosis) (HCC),Neuropathic pain Take 6 mL by mouth 3 times a day as needed for Pain, Severe or Pain, Moderate. 470 mL 3 04/30/2023 12/14/2023 Discontinue d(Refill) Diclofenac Sodium 1 % External Gel (Voltaren) Apply 4 g topically to affected area 4 times a day as needed for Pain, Moderate. Apply to the affected area 150 g 5 07/01/2023 10/14/2023 Discontinue d(Refill) documented as of this encounter (statuses as of 12/30/2023) Active Problems Problem Noted Date Diagnosed Date [...] as of this encounter (statuses as of 12/30/2023) Resolved Problems Problem Noted Date Diagnosed Date [...] as of this encounter (statuses as of 12/30/2023) Immunizations Name Administration Dates Next Due COVID-19 mRNA, LNP-s, No Pre serve, 2-Dose Series (Roomish) 05/24/2021,11/03/2020,10/13/2020 Pneumococcal Conjugate Vacc, 13 Valent (Prevnar) [...] encounter Miscellaneous Notes * Telephone Encounter - Carlitos Carson OSA - 10/06/2023 11:35 AM EST Called and spoke to pt, confirmed appt with Dr. Roblero for next week * Telephone Encounter - Carlitos Carson OSA - 10/05/2023 11:03 AM EST LMOM for pt, relayed Dr. Roblero's message. Next opening was 10/14, scheduled the appointment for pt awhile and told her to call back if it won't work. * Telephone Encounter - Manish Roblero DO - 10/03/2023 9:16 AM EST Ok to schedule at the end of day on an upcoming Thursday in private slot/spot or procedure spot * Telephone Encounter - Carlitos Carson OSA - 10/02/2023 10:25 AM EST Called and spoke to pt. Offered sooner appt with AP, pt refused. She said that Dr. Roblero told her to call the office if she ever needed to see him and that he would work her into his schedule. Pt struggling with ALS symptoms, which is what she'd like to go over with Dr. Roblero. Please advise how we should proceed with scheduling. * Telephone Encounter - Virgie Stephens LPN - 10/02/2023 10:10 AM EST If patient is okay with seeing someone else yes * Telephone Encounter - Carlitos Carson OSA - 10/02/2023 8:50 AM EST Ok to offer AP sooner? Next opening with Dr. Roblero isn't until July. Please advise * Telephone Encounter - Virgie Joe OSA - 09/30/2023 9:10 AM EST No Appointments Available Patient declined appointments?: Yes What Visit Type is needed? Return If Acute Visit Type is needed, were surrounding clinics offered to patient (Yes/No)? N/A Was patient offered appointments with other available providers (Yes/No)? Yes See Call Details? (Yes or No): Yes documented in this encounter Plan of Treatment Upcoming Encounters Date Type Department Care Team (Late st Contact Info) Description 12/31/2023 9:00 AM EDT Office Visit Family Practice [facility] [address] [place] [address] Manish Roblero, [address] [place] [address] Health Maintenance Due Date Last Done Comments [...] D LEVEL ONCE IN A LIFETIME-USE SMARTSET# [id number] Completed 12/12/2021, 11/30/2019, 04/08/2019, Additional history exists [...] this encounter Medical Devices Implanted Type Area Bead Trimmer Device Identifier Shelf Expiration Date Model / Serial / Lot Mesh Pelvic Gynamesh Gpsl - [id number] Implanted:Qty: 1 on 11/22/2007 at OR [facility] N/A: Vagina ANDREW & ANDREW 08/17/2011 GPSL / / [id number] documented as of this encounter Advance Directives Documents on File Type Date Recorded 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 Code Status History Code Status Date Activated Date Inactivated Comments Full Code 11/23/2007 12:38 AM 11/25/2007 1:34 PM Full Code 11/22/2007 4:51 PM 11/23/2007 12:38 AM Care Teams Full Decator Operator Relationship Specialty Start Date End Date Manish Roblero DO [address] [place] [address] PCP - General Family Medicine 09/14/19 documented as of this encounter
--- OUTSIDE RECORDS SUMMARY | 2024-01-14 21:39 | External Medical Summary | Summary of Care ---
Author Name Unknown Organization [facility] Address [address] [place] [address] Phone [phone] Care Team Providers Care Business Segment Manager Name Role Phone Raquel Roblero DO Primary Care Provider Reason for Visit * Reason Onset Date Comments Medication Refill 12/14/2023 Encounter Details Date Type Department Care Team (Late st Contact Info) Description 12/14/2023 Refill Family Practice [facility] [address] [place] [address] Raquel Roblero DO [address] [place] [address] ALS (amyotrophic lateral sclerosis) (HCC); Neuropathic pain Allergies Active Allergy Reactions Criticality Noted Date [...] as of this encounter (statuses as of 12/14/2023) Medications Medication Sig Dispensed Refills Start Date End Date Status Cyanocobalamin (B-12) 1000 MCG TABS Take 1 Tablet by mouth in the morning. Pt taking 3000 mg daily. 0 Active Vitamin D3 50 MCG (1999 UT) [...] Active Diclofenac Sodium 1 % External Gel (Voltaren)Indicat ions:Polyarthralg ia Apply 4 g topically to affected area 4 times a day as needed for Pain, Moderate. Apply to the affected area 150 g 5 10/14/2023 Active Gabapentin 300 MG/6ML Oral SolutionIndicatio ns:ALS (amyotrophic lateral sclerosis) (HCC),Neuropathic pain Take 6 mL by mouth 3 times a day as needed for Pain, Severe or Pain, Moderate. 470 mL 3 12/14/2023 Active Gabapentin 300 MG/6ML Oral SolutionIndicatio ns:ALS (amyotrophic lateral sclerosis) (HCC),Neuropathic pain Take 6 mL by mouth 3 times a day as needed for Pain, Severe or Pain, Moderate. 470 mL 3 04/30/2023 12/14/2023 Discontinue d(Refill) documented as of this encounter (statuses as of 12/14/2023) Active Problems Problem Noted Date Diagnosed Date [...] as of this encounter (statuses as of 12/14/2023) Resolved Problems Problem Noted Date Diagnosed Date [...] as of this encounter (statuses as of 12/14/2023) Immunizations Name Administration Dates Next Due COVID-19 mRNA, LNP-s, No Pre serve, 2-Dose Series (Visibiz) 05/24/2021,11/03/2020,10/13/2020 Pneumococcal Conjugate Vacc, 13 Valent (Prevnar) [...] encounter Miscellaneous Notes * Telephone Encounter - Raquel Roblero DO - 12/14/2023 12:42 PM EDT Signed Prescriptions: Disp Refills Gabapentin 300 MG/6ML Oral Solution 470 mL 3 Sig: Take 6 mL by mouth 3 times a day as needed for Pain, Severe or Pain, Moderate. Authorizing Provider: RAQUEL ROBLERO * Telephone Encounter - Karen Alba LPN - 12/14/2023 11:51 AM EDTPending Prescriptions: Disp Refills Gabapentin 300 MG/6ML Oral Solution 470 mL 3 Sig: Take 6 mL by mouth 3 times a day as needed for Pain, Severe or Pain, Moderate. * Telephone Encounter - Kristy Enciso OSA - 12/14/2023 11:06 AM EDT Did you pend patient's preferred pharmacy and medication before forwarding?yes Pharmacy: [facility] No prescriptions requested or ordered in this encounter Gabapentin 300mg/6ml oral solution Last Visit: 10/14/2023 (in office), 01/06/2023 (telemedicine) Next Visit: Visit date not found If no future appointments scheduled, and last appointment is greater than a year ago, please schedule patient for a follow-up appointment Last date the medication was ordered: 04/30/2023 Is this request for a controlled substance?No Urine Drug Screen:No results found. However, due to the size of the patient record, not all encounters were searched. Please check Results Review for a complete set of results. Patient Phone Numbers Labs: Lab Results Component Value Date/Time CREAT 0.9 08/13/2023 10:59 AM CREAT 0.9 02/21/2020 12:24 PM POTASSIUM 4.4 08/13/2023 10:59 AM POTASSIUM 4.7 02/21/2020 12:24 PM TSH 2.60 12/12/2021 10:36 AM TSH 2.62 02/21/2020 12:24 PM LDLCALC 104 12/12/2021 10:36 AM LDLCALC 129 (H) 10/25/2009 07:47 AM ALT 12 08/13/2023 10:59 AM ALT 11 02/21/2020 12:24 PM ALT 10 (L) 10/14/1996 03:20 PM HGBA1C 5.4 06/23/2022 02:45 PM HGBA1C 5.8 (H) 03/15/2020 12:49 PM documented in this encounter Plan of Treatment Health Maintenance Due Date Last Done Comments [...] D LEVEL ONCE IN A LIFETIME-USE SMARTSET# [id number] Completed 12/12/2021, 11/30/2019, 04/08/2019, Additional history exists [...] this encounter Medical Devices Implanted Type Area Regulator Mechanic Device Identifier Shelf Expiration Date Model / Serial / Lot Mesh Pelvic Gynamesh Gpsl - [id number] Implanted:Qty: 1 on 11/22/2007 at [place] [facility] N/A: Vagina ANDREW & ANDREW 08/17/2011 GPSL / / [id number] documented as of this encounter Visit Diagnoses Diagnosis ALS (amyotrophic lateral sclerosis) (HCC) Amyotrophic lateral sclerosis Neuropathic pain Neuralgia, neuritis, and radiculitis, unspecified documented in this encounter Advance Directives Documents on File Type Date Recorded Patient Top Tile Decorator Expl anation Power of Beam Builder 10/07/2007 Latest Code Status on File Code Status Date Activated Date Inactivated Comments Full Code 11/23/2013 7:56 AM 11/23/2013 4:01 PM This or kinjal reflects the patients wishes and were consensually agreed upon. Code Status History Code Status Date Activated Date Inactivated Comments Full Code 11/23/2007 12:38 AM 11/25/2007 1:34 PM Full Code 11/22/2007 4:51 PM 11/23/2007 12:38 AM Care Teams Business Segment Manager Relationship Specialty Start Date End Date Raquel Roblero DO [address] [place] [address] PCP - General Family Medicine 09/14/19 documented as of this encounter
--- OUTSIDE RECORDS SUMMARY | 2024-01-14 21:39 | External Medical Summary | Summary of Care ---
Author Name Unknown Organization [facility] Address [address] [place] [address] Phone [phone] Care Team Providers Care Roll Out Manager Name Role Phone Manish Roblero DO Primary Care Provider Reason for Visit * Reason Comments eRx-Medication Refill Encounter Details Date Type Department Care Team (Late st Contact Info) Description 12/11/2023 Refill Family Practice [facility] [address] [facility] [place] [address] Manish Roblero DO [address] [place] [place] [address] Adjustment disorder with depressed mood Allergies Active [...] A DAY 60 Tablet 11 04/15/2023 Active Gabapentin 300 MG/6ML Oral SolutionIndications: ALS (amyotrophic lateral sclerosis) (HCC),Neuropathic pain Take 6 mL by mouth 3 times a day as needed for Pain, Severe or Pain, Moderate. 470 mL 3 04/30/2023 Active Hydrocortisone 2.5 % External Cream APPLY [...] affected area 150 g 5 10/14/2023 Active documented as of this encounter (statuses [...] mRNA, LNP-s, No Pre serve, 2-Dose Series ([employer]) 05/24/2021,11/03/2020,10/13/2020 Pneumococcal Conjugate Vacc, 13 Valent (Prevnar) [...] encounter Miscellaneous Notes * Telephone Encounter - [facility] - 12/14/2023 9:40 AM EDT Refused Prescriptions: Disp Refills Mirtazapine 30 MG Oral Tablet (Remeron) 90 Tab*1 Sig: TAKE ONE TABLET BY MOUTH AT BEDTIMERefused By: AYLEEN MALLORY for Refusal: Too soon Electronically signed by [facility] at 12/14/2023 9:40 AM EDT documented in this encounter Plan of Treatment [...] D LEVEL ONCE IN A LIFETIME-USE SMARTSET# [id number] Completed 12/12/2021, 11/30/2019, 04/08/2019, Additional history exists [...] this encounter Medical Devices Implanted Type Area Title Curative Specialist Device Identifier Shelf Expiration Date Model / Serial / Lot Mesh Pelvic Gynamesh Gpsl - [id number] [place] [facility] [place] Vagina [employer] 08/17/2011 GPSL / / [id number] documented as of this encounter Visit Diagnoses Diagnosis Adjustment disorder with depressed mood documented in this encounter Advance Directives Documents on File Type Date Recorded Patient Process Control Supervisor Expl anation Power of Mechanical Pencils Assembler 10/07/2007 Latest Code Status on File Code Status Date Activated Date Inactivated Comments Full Code 11/23/2013 7:56 AM 11/23/2013 4:01 PM This or kinjal reflects the patients wishes and were consensually agreed upon. Code Status History Code Status Date Activated Date Inactivated Comments Full Code 11/23/2007 12:38 AM 11/25/2007 1:34 PM Full Code 11/22/2007 4:51 PM 11/23/2007 12:38 AM Care Teams Roll Out Manager Relationship Specialty Start Date End Date Manish Roblero DO [address] [place] [id number] PCP - General Family Medicine 09/14/19 documented as of this encounter
--- OUTSIDE RECORDS SUMMARY | 2024-01-14 21:39 | External Medical Summary | Summary of Care ---
Author Name Unknown Organization [facility] Address [address] [place] [address] Phone [phone] Care Team Providers Care High Lift Operator Name Role Phone Manish Roblero DO Primary Care Provider Reason for Visit * Reason Onset Date Comments FYI 11/11/2023 Encounter Details Date Type Department Care Team (Late st Contact Info) Description 11/11/2023 Telephone Family Practice [facility] [address] [facility] [place] [address] Manish Roblero DO [address] [place] [id number] Allergies Active Allergy Reactions Criticality Noted Date [...] as of this encounter (statuses as of 11/11/2023) Medications Medication Sig Dispensed Refills Start Date [...] as of this encounter (statuses as of 11/11/2023) Active Problems Problem Noted Date Diagnosed Date [...] as of this encounter (statuses as of 11/11/2023) Resolved Problems Problem Noted Date Diagnosed Date [...] as of this encounter (statuses as of 11/11/2023) Immunizations Name Administration Dates Next Due COVID-19 mRNA, LNP-s, No Pre serve, 2-Dose Series ([email or web address]) 05/24/2021,11/03/2020,10/13/2020 Pneumococcal Conjugate Vacc, 13 Valent (Prevnar) [...] encounter Miscellaneous Notes * Telephone Encounter - Julia Allred RN - 11/11/2023 10:26 AM EDT Noted * Telephone Encounter - Devi Avila OSA - 11/11/2023 9:52 AM EDT Leon calling to inform that patient had a fall on 11/09, no injuries to her, vitals within normal limits. 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 Code Status History Code Status Date Activated Date Inactivated Comments Full Code 11/23/2007 12:38 AM 11/25/2007 1:34 PM Full Code 11/22/2007 4:51 PM 11/23/2007 12:38 AM Care Teams High Lift Operator Relationship Specialty Start Date End Date Manish Roblero DO [address] [place] [address] PCP - General Family Medicine 09/14/19 documented as of this encounter
--- OUTSIDE RECORDS SUMMARY | 2024-01-14 21:39 | External Medical Summary | Continuity of Care Document ---
Author Name Unknown Organization [facility] Address [address] [place] [address] AKSHAT VILLA [phone] Care Team Providers Care Cyber Threat Analyst Name Role Phone Manish Roblero Primary Care Physician [phone] [phone] Encounter [facility] [id number] Date(s): 12/02/23 - 12/02/23 [facility] [id number], [place] [address]- [phone] Encounter Diagnosis Amyotrophic lateral sclerosis(Discharge Diagnosis) - 12/02/23 Dysphagia(Discharge Diagnosis) - 12/02/23 Abnormal weight loss(Discharge Diagnosis) - 12/02/23 Chronic pain(Discharge Diagnosis) - 12/02/23 Depression with anxiety(Discharge Diagnosis) - 12/02/23 Goals of care, counseling/discussion(Discharge Diagnosis) - 12/02/23 Palliative care encounter(Discharge Diagnosis) - 12/02/23 Excessive oral secretions(Discharge Diagnosis) - 12/02/23 Discharge Disposition: Home or Self Care Attending Physician: MD Ferguson Kristina B Referring Physician: DO Roblero Trevor S Allergies, Adverse Reactions, Alerts Substance Reaction Severity Status codeine itchy nausea Active tetracycline rash Active Persantine unknown Active fenoprofen unknown Active chlorhexidine topical rash Active shellfish welt rash Active IVP dye welts rash Active Percocet 5/325 1 nausea Active Carbocaine unknown Active Morphine Sulfate 2 nausea Active Mepivacaine Hydrochloride unknown Ac tive 1upset stomach 2upset stomach Assessment and Plan Extracted from: Title:Telehealth Visit Note Author:MD Ferguson Kristina B Date:12/02/23 1.Amyotrophic lateral scle rosis 88 year old female with history of Paroxysmal atrial fibrillation, HTN, HLD, CVA, 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 She has stopped her ALS drugs and is monitoring her symptoms. Advise her to discuss her findings with Dr. Bhatti in January. 2.Dysphagia Expect progression of dysphagia over time. Continue medications via tube. Validated patient's thought that she may never restart TF due to discomfort and desire to allow natural . 3.Chronic pain Aching and neuropathic pain in BLE thatis worst at night -Consider Restart acetaminophen 480mg via G Tube po bid and as needed for pain - Continue gabapentinvia 250mg/5mL oral solution bid - Continue naproxen 125mg/5ml oral [id number]) bid and 150mg (6mL)- renal function in July 2023 adequate for this - Consider opioid analgesia if pain not improved, noting prior opioid induced nausea 4.Abnormal weight loss Weight has improved due to taste improving since stopping ALS medications. Advised that if her weight remains stable, she can continue current plan, if weight loss starts again, it would indicate a downturn that would warrant hospice enrollment if she continues to feel she does not want restart TF. 5.Excessive oral secretions Currently well managed, continue, scopolamine, glycopyrrolate per Neurology. 6.Depression with anxiety Mood stable, has difficulty seeing the positive in things. Goal is to manage symptoms well enough to ensure participation and enjoyment in daily activities while minimizing side effects.Recommend continue: - Sertraline 100mg daily - Mirtazapine 30mg qhs - Encourage engagement in family activities/meaning-bringing activities 7.Goals of care, counseling/discussion Desires limited interventions including no mechanical ventilation or tracheostomy and no resuscitation. (POLST reflects this) Feels strongly about dying in her home which family aims to support. Accepts hospice when prognosis is less than 6 months and symptoms/care needs warrant(not now)- if starts losing weight and is not starting TF again, hospice would be indicated. 8.Palliative care encounter Will follow-up within8-10 weeks or sooner if needed Provided our nurse phone number, igc use when needs arise Today's scheduled clinic visit was scheduled as an audio-visualvisit via [facility]. The patient and/or surrogate provided consent for this to be a virtual visit and is aware that this is billable to insurance and a copayment may be required. I was located in my office for this visit and the patient was located at home. The patient was verified with two unique identifiers. This visit was not related to a prior visit in past 7 days. Lexie Ferguson MD [facility], [facility] Palliative Care, [address] [address] [email or web address] Medications baclofen 10 mg oral tablet Start: 09/29/23 14:01:00 EST, 0.5 tab, PO, bid Start Date: 09/29/23 Status: Ordered diclofenac 1% topical gel Start: 03/05/22 9:31:00 EDT, 1 appl, topical, qid, Disp# 400 g, Refills: 5, Apply up to 4 grams QIDPRN for right hip pain, PRN: Pain, Pharmacy: [id number] Start Date: 03/05/22 Stop Date: 09/01/22 Status: Ordered gabapentin 250 mg/5 mL oral solution Start: 08/06/23 11:43:00 EST, See Instructions, Disp# 540 mL, Refills: 3, 6 mL bid and 8mL qhs po or GT, Pharmacy: [facility] Start Date: 08/06/23 Status: Ordered glycopyrrolate 1 mg oral tablet Start: 09/29/23 13:58:00 EST, 1 tab, PEG-tube, tid, Disp# 270 tab, Refills: 3, Up to 1mg via PEG tube TID PRN secretions, Pharmacy: [id number] Start Date: 09/29/23 Stop Date: 09/23/24 Status: Ordered Imuran 50 mg oral tablet Start: 10/22/17 10:40:00, 1 tab, PO, Daily Start Date: 10/22/17 Status: Ordered mirtazapine 30 mg oral tablet Start: 12/02/23 16:49:00 EDT, 1 tab, PO, qhs Start Date: 12/02/23 Status: Ordered naproxen 125 mg/5 mL oral suspension Start: 09/29/23 13:31:00 EST, See Instructions, Disp# 1,710 mL, Refills: 1, 6 mL PEG tube AM & afternoon, 7 mL HS, 90 day, Pharmacy: [facility] Start Date: 09/29/23 Status: Ordered ondansetron 4 mg oral tablet, disintegrating Start: 04/28/23 10:29:00 EDT, See Instructions, Disp# 60 tab, Refills: 3, allow 1 tablet to dissolve on tongue daily before tube feeding and every 6 hours as needed, PRN: as needed for nausea/vomiting, Pharmacy: [id number] Start Date: 04/28/23 Status: Ordered pantoprazole Start: 10/22/17 10:41:00, 40 mg =, PO, Daily Start Date: 10/22/17 Status: Ordered Probiotic Formula Start: 10/22/17 10:42:00, 1 cap, PO, Daily Start Date: 10/22/17 Status: Ordered Radicava ORS 105 mg/5 mL oral suspension Start: 06/30/23 9:47:00 EST, 5 mL, PO, Daily, Disp# 50 mL, Refills: 12, DRUG FREE PERIODS., Brand Medically Necessary, Pharmacy: [facility] Start Date: 06/30/23 Status: Ordered riluzole Start: 03/05/22 8:24:00 EDT, 50 mg =, PO, bid Start Date: 03/05/22 Status: Ordered Vitamin B12 Start: 03/05/22 8:24:00 EDT, 1,000 mcg =, PO, Daily Start Date: 03/05/22 Status: Ordered Vitamin D3 Start: 03/05/22 8:24:00 EDT, 50 mcg =, PO, Daily Start Date: 03/05/22 Status: Ordered Problem List Condition Confirmation Course Effective Dates Status H ealth Status Informant Abnormal weight loss Confirmed Active Acute urinary retention Confirmed Active Amyotrophic lateral sclerosis Confirmed Active Anxiety Confirmed Active Arthritis of elbow Confirmed Active CMC arthritis Confirmed Active Bilateral hearing loss Confirmed Active Chronic pain Confirmed Active Muscle cramps Confirmed Active Debility Confirmed Active DEPRESSION Confirmed Active High risk medications (not anticoagulants) long-term use Confirmed Active Dysarthria Confirmed Active Dysphagia Confirmed Active Elbow pain Confirmed Active Excessive oral secretions Confirmed Active Fatigue Confirmed Active Chronic GERD Confirmed Active Hepatitis Confirmed Active Hip pain 1 Confirmed Active Idiopathic progressive polyneuropathy Confirmed Active Impingement syndrome of shoulder region Confirmed Active Insomnia Confirmed Active Liver disease Confirmed Active Left lumbosacral radiculopathy Confirmed Active Depression with anxiety Confirmed Active Other motor neuron disease Confirmed Active Osteoarthritis Confirmed Active Pain of left leg Confirmed Active Goals of care, counseling/discussion Confirmed Active Palliative care encounter Confirmed Active Preop examination Confirmed Active Reflux gastritis Confirmed Active Restless leg Confirmed Active Shoulder fracture 2 Confirmed Active Shoulder pain, right Confirmed Active Stomach ulcer Confirmed Active Thigh pain 3 Confirmed Active Trochanteric bursitis Confirmed Active Ulnar neuropathy Confirmed Active Weight disorder Confirmed Active 1left 2left 3left Diagnosis Diagnosis Type Effective Dates Health Status Clinical Service Informant Dysphagia Discharge Diagnosis 12/02/23 Depression with anxiety Discharge Diagnosis 12/02/23 Palliative care encounter Discharge Diagnosis 12/02/23 Amyotrophic lateral sclerosis Discharge Diagnosis 12/02/23 Abnormal weight loss Discharge Diagnosis 12/02/23 Goals of care, counseling/discuss ion Discharge Diagnosis 12/02/23 Chronic pain Discharge Diagnosis 12/02/23 Excessive oral secretions Discharge Diagnosis 12/02/23 Procedures Procedure Date Related Diagnosis Body Site Status Barium swallow 1 10/30/17 Complete d X-ray of left foot 2 05/21/16 Comp leted Hip replacement 2014 Completed throat stretched operation planned 2014 Completed Right elbow 3 07/10/14 Completed Endoscopy & throat stretchin g, multiple 2013 Completed Right elbow debridement 10/21/12 C ompleted Injection 09/2009 Completed Abdominal wall/pelvic wall 11/2006 Completed Medtronic implant in hip 2002 Completed Neck surgery 1997 Completed Appendectomy 1972 Completed Hysterectomy 1972 Completed Back surgery 1970 Completed Tonsillectomy 4 Completed 11) Aspiration was observed and the examination was discontinued. 2) No esophageal abnormality was identified on the acquired images. 2[facility] Impression: 1.Mild dorsal soft tissue swelling. No fractures 3OPERATIVE PROCEDURES: 1. Right total elbow arthroplasty with a tourniquet component, small. 2. Ulnar nerve transposition. 4during childhood Social History Social History Type Response Smoking Status Former Smoker, quit > 1 yr Sex Female Palliative care Outpatient Note * MD Phyllis, Lexie Barlow: PERFORM Event Display: Palliative Care Outpt Note Authored Date: [id number] Chief Complaint coping with ALS History of Present Illness 88 year old female with history ofParoxysmal atrial fibrillation, HTN, HLD, CVA, autoimmune hepatitis on imuran, hearing loss with hearing aids, Schatzki's ring and ALS diagnosed in December 2021whois followed bypalliative care for management of symptoms and expectations related to ALS on riluzole and edavarone (Radicava). Telehealth visit completed today for the patient's convenience and safety. Patient is accompanied by her daughter in law, Saba who contributes to her history. In preparation for visit,chart reviewed.Reviewed multi-disciplinary ALS clinic visit note [place] since last visit. Since our last visit, she stopped taking riluzole and edavarone and reports her taste buds have improved. Her swallowing is worse and her legs are worse. Issues discussed include: Debility with falls: they report none since our last visit however walking is more unsteady. Nutrition- Impaired by dysphagia. A little improvement since stoping ALS drugs. Has started losing weight now that she has been off TF for 5 months: reports she got down to 101lbsbut is now back to 107lbs. Does not feel hungry. Sometimes sleeps through mealtimes. - Stopped tube feeds due to discomfortNov2022. - Initiallymaintained weight with oral nutrition at 114lbs. - Does not think she ever wants torestart TF if/when she starts losing weight again or had more dysphagia. Validated that she always has a choice - difficulty swallowing pills or solids. - In spring 2022, reported considering stopping her tube feeding, mostly because she feels she is aburden to her family. On further discussion, agreed to continue TF until discomfort grew and she stopped again in the fall Dysphagia: persistent, multifactorial from Schatzki's ring and ALS - +PIll dysphagia,most meds put through tube via liquid or crushed. - difficulty swallowing with aspiration pneumonia in fall 2021. - Takes most pills via tube. - see above re stopping feeding - continues with BAR[employer] D[employer] at home Pain- Worst in BLE. Throbbing and electric, remains bothersome at nighttime. - They ache most of the time, some days are far worse and including shooting pains that extend into her feet. Currently taking: - Gabapentin 250mg (5mL)pobid oral solution- had nightmares/hallucinations in the past, tolerating lately, now attributes hallucinations to her ALS drug which was stopped. - Naproxen 125mg(5ml) bid, 150mg(6ml) qhs via oral solution- feels her dreams have been altered by the higher dose of naproxen. *note significant time and attempts need to try to understand what she is taking and how they make her feel - Acetaminophen as needed- has not used much recently because the pills she has are so large *not taking / Past analgesia- vicodin 2020 GERD: stable Currently taking: - Famotidine - Pantoprazole Secretions- stable on current regimen Currently taking: -Scopolamine, glycopyrrolate Fatigue-Worsening. Taking more and longer naps. -Remains frustrating to her to lack energy. Has to chunk her activities into short episodes to tolerate. Having more difficulty doing ADLs herself,doing light cleaning and meal prep, laundry. - Frustrated by her functional limitations. - No longer driving Mood- currently well managed/stable. Current management: - Sertraline 100mg daily - Mirtazapine 30mg qhs Cognition- noting some memory impairments that are progressing. Hospice introduction: Advise her to continue off ALS medications as long as she is feelingwell and revisit this with Dr. Bhatti. OK to hold off on hospice referral as long as she is maintaining her weight and function. she does not want to lose her BARREL DRILLER and nurses right now. (October visit )Given her decline in function, weight loss and desire to avoid uncomfortable artificial feedings, recommend consideration of stopping ALS medications and consider hospice enrollment to support her and her family (family agree to this per her report and their presence during visit). Advised it is unclear to me whether she would notice any change in symptoms if/when she stops ALS meds. (ON prior visit) At patient's invitation, discussed when hospice might be appropriate for her: namely, when she has increasing weakness such that she is no longer ambulatory, when she starts to experience more difficulty with breathing or other symptoms that cause distress. OR if she decides her quality of life is one that she does not want to continue and desires to stop tube feeding and/or ALS medications. She is familiar with hospice from when her from cancer in 2013. ADDITIONAL HISTORY: Disease Course: Diagnosed with ALS in December 2021 after presenting with weakness. PEG placed March 2022. On riluzole,sodium phenylbutyrate/taurursodiol(Relyvrio)and edavarone (Radicava) until October 2023. Illness understanding:Understands her condition cannot be cured and treatments are meant to slow progression. Understands that she will likely lose her ability swallow, breathe andcommunicatein the months ahead. Goals of Care:Hopes to in her own home. Does not want to be resuscitated or intubated or have tracheostomy placed. Has chosen against restarting tube feeding and is considering stopping all life prolonging interventiosn. Information preferences:Accepts straightforward information about condition and prognosis. PDMP: Reviewed and considered with regard to ongoing management. Code Status:Limited Support: DNR/DNI Advance Directive Documents:In EMR:[place] Orders Life-Sustaining Tx: [place] Orders Life-Sustaining Tx (07/21/22): DNR/Comfort measures/+trial antibiotics/Ok tube feeding Patients decision making capacity:Intact Surrogate decision maker:SonLebron. Prognosis:Likely less than one year, potentially less than 6 months given her weight lossand desire to avoid future tube feeding. Functional Status:Independent for ADLs and small jobs, uses walker/cane or transport wheelchairfor distances. Has fallen in the past. Needs assistance for ambulation outside of the house. Social History:, Lives [facility]. Son Lebron and IRINEO Walter actively involved and checking on her daily. Neighbors also checking in regularly. Has a renter living in basement who helps her if/when she needs it. Had 6 children total, 1 from colon cancer. 3 adult children are close by, 1 lives in [place] and has 5 children and a with MS. Total of 18 GK, 16GGK. Enjoys going out to eat, playing cards with neighbors "[employer]" Has a 'glass technician/installer' who checks on her weekly from Home Health - home health from [facility] from [phone]. Also enrolled with [facility] through [facility] for monthly telephonic support since 2021. Equity: During previous medical encounters, have you ever felt you have been treated differently thanother patients for any reason?Not yet discussed Caregiver Needs / Support:Adequate support identified Her children plan to stay with her if/when she needs more care as she intends to stay at home. She worries about being a burden to them butthey report unfaltering support to her. Spirituality:Strong yazidi moira that gives her comfort that God is in control. She feels God will know when it is time for her to go. Anticipatory grief/Loss history:Daughter of colon cancer after withholding the news about it from her family until her final 3 weeks of life. - with hospice at home in 2013 from cancer of the liver. Involved Clinicians:Thang Bhatti PCP:DO ROBLERO TREVOR S (BUSINESS) [phone] (FAX BUSINESS) Review of Systems Review of systems positive for those listedabove, all others asked anddetermined to be negative Physical Exam Exam via telemedicine: General: Awake, alert and oriented Psych: Appropriate affect HEENT: Normocephalic, PERRL, external ears without abnormality Neck: No JVD noted Chest: Breathing non labored, speaking without evidence of breathlessness Extremities:no abnormalities evident Skin: No abnormal lesions noted Neuro: CN II=XII grossly intact Assessment/Plan 1.Amyotrophic lateral sclerosis 88 year old female with history of Paroxysmal atrial fibrillation, HTN, HLD, CVA, 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 She has stopped her ALS drugs and is monitoring her symptoms. Advise her to discuss her findings with Dr. Bhatti in January. 2.Dysphagia Expect progression of dysphagia over time. Continue medications via tube. Validated patient's thought that she may never restart TF due to discomfort and desire to allow natural . 3.Chronic pain Aching and neuropathic pain in BLE thatis worst at night -Consider Restart acetaminophen 480mg via G Tube po bid and as needed for pain - Continue gabapentinvia 250mg/5mL oral solution bid - Continue naproxen 125mg/5ml oral [id number]) bid and 150mg (6mL)- renal function in July 2023 adequate for this - Consider opioid analgesia if pain not improved, noting prior opioid induced nausea 4.Abnormal weight loss Weight has improved due to taste improving since stopping ALS medications. Advised that if her weight remains stable, she can continue current plan, if weight loss starts again, it would indicate a downturn that would warrant hospice enrollment if she continues to feel she does not want restart TF. 5.Excessive oral secretions Currently well managed, continue, scopolamine, glycopyrrolate per Neurology. 6.Depression with anxiety Mood stable, has difficulty seeing the positive in things. Goal is to manage symptoms well enoughto ensure participation and enjoyment in daily activities while minimizing side effects.Recommendcontinue: - Sertraline 100mg daily - Mirtazapine 30mg qhs - Encourage engagement in family activities/meaning-bringing activities 7.Goals of care, counseling/discussion Desires limited interventions including no mechanical ventilation or tracheostomy and no resuscitation. (POL reflects this) Feels strongly about dying in her home which family aims to support. Accepts hospice when prognosis is less than 6 months and symptoms/care needs warrant(not now)- if starts losing weight and is not starting TF again, hospice would be indicated. 8.Palliative care encounter Will follow-up within8-10 weeks or sooner if needed Provided our nurse phone number,[phone] use when needs arise Today's scheduled clinic visit was scheduled as an audio-visualvisit via [facility]. The patient and/or surrogate provided consent for this to be a virtual visit and is aware that this is billable to insurance and a copayment may be required. I was located in my office for this visit and the patient was located at home. The patient was verified with two unique identifiers. Thisvisit was not related to a prior visit in past 7 days. Lexie Ferguson MD FAAHPM, [facility] Palliative Care, [address] [address] [email or web address] Problem List/Past Medical History Ongoing Abnormal weight loss Acute urinary retention Amyotrophic lateral sclerosis Anxiety Arthritis of elbow Bilateral hearing loss Chronic GERD Chronic pain CMC arthritis Debility DEPRESSION Depression with anxiety Dysarthria Dysphagia Elbow pain Excessive oral secretions Fatigue Goals of care, counseling/discussion Hepatitis High risk medications (not anticoagulants) long-term use Hip pain Idiopathic progressive polyneuropathy Impingement syndrome of shoulder region Insomnia Left lumbosacral radiculopathy Liver disease Muscle cramps Osteoarthritis Other motor neuron disease Pain of left leg Palliative care encounter Preop examination Reflux gastritis Restless leg Shoulder fracture Shoulder pain, right Stomach ulcer Thigh pain Trochanteric bursitis Ulnar neuropathy Weight disorder Procedure/Surgical History Barium swallow| Service Date: 10/30/2017X-ray of left foot| Service Date: 05/21/2016throatstretched operation planned| Service Date: 2014Hip replacement| Service Date: 2014Right elbow| Service Date: 07/10/2014 Endoscopy & throat stretching, multiple| Service Date: 2013 Rightelbow debridement| Service Date: 10/21/2012Injection| Service Date: bdominal wall/pelvic wall| Service Date: 11/2006Medtronic implant in hip| Service Date: 2002Neck surgery| Service Date: 1997Hysterectomy| Service Date: 1972Appendectomy| Service Date: 1972Back surgery| Service Date: 1971Tonsillectomy Medications azaTHIOprine(Imuran 50 mg oral tablet), 50 mg= 1 tab, PO, Daily baclofen(baclofen 10 mg oral tablet), 5 mg= 0.5 tab, PO, bid bifidobacterium-lactobacillus(Probiotic Formula), 1 cap, PO, Daily cholecalciferol(Vitamin D3), 50 mcg, PO, Daily cyanocobalamin(Vitamin B12), 1000 mcg, PO, Daily diclofenac topical(diclofenac 1% topical gel), 1 appl, topical, qid, PRN, 5 refills edaravone(Radicava ORS 105 mg/5 mL oral suspension), 5 mL, PO, Daily gabapentin(gabapentin 250 mg/5 mL oral solution), See Instructions, 3 refills glycopyrrolate(glycopyrrolate 1 mg oral tablet), 1 mg= 1 tab, PEG-tube, tid, 3 refills mirtazapine(mirtazapine 30 mg oral tablet), 30 mg= 1 tab, PO, qhs naproxen(naproxen 125 mg/5 mL oral suspension), See Instructions, 1 refills ondansetron(ondansetron 4 mg oral tablet, disintegrating), See Instructions, PRN, 3 refills pantoprazole, 40 mg, PO, Daily riluzole, 50 mg, PO, bid Allergies Carbocaineunknown IVP dyewelts, rash Mepivacaine Hydrochlorideunknown Morphine Sulfatenausea Percocet 5/325nausea Persantineunknown chlorhexidine topicalrash codeineitchy, nausea fenoprofenunknown shellfishwelt, rash tetracyclinerash Social History Smoking Status Former Smoker, quit > 1 yr Alcohol - Denies Alcohol Use Tobacco - Denies Tobacco Use Family History Cancer: Unknown. Diabetes: Unknown. Heart disease: Unknown. Health Status Family Member(s) Recommendations Health Maintenance Pending(in the next year) OverDue Adult Influenza Vaccine due06/30/23and every 1year Body Mass Index due07/22/23and every 366day Due Adult COVID-19 Vaccination due12/02/23Unknown Frequency Adult Social Determinants of Health Screening due12/02/23Unknown Frequency Adult Tdap/Td Vaccine due12/02/23Unknown Frequency Lipid Screening due12/02/23Unknown Frequency Medicare Annual Wellness Visit due12/02/23and every 1year Pneumococcal Vaccine Older Adults due12/02/23One-time only Shingles Vaccine due12/02/23One-time only Satisfied(in the past 1 year) There are no satisfied recommendations within the defined date range Electronic Signature on File CC: Manish Roblero DO [facility] [address] [facility] [address] * CC: Emile Bhatti MD [address] [facility] [address] [place] [address] Electronically Reviewed/Signed by: Lexie Ferguson MD, FAAM Author Signature Dt/Tm:406:23 PM Chief, Palliative Care [facility] fruit bar maker, [facility] Office: [phone] KBN Patient Care team information Care Team Personnel Name: TOM Christiansen, Doreen Position: Physician Asst Exmpt - Orthopaedic Surg Member Role: Lifetime Relationship Address: Address: [address] [facility] [address] [place] [address] [place] Name: MD Ferguson Kristina B Position: Physician - Palliative Care Member Role: Lifetime Relationship Address: Address: [address] [place] [address] [place] Name: TOM Grace Cory D Position: Physician Senior Vice President - Sports Medicine [place] Member Role: Lifetime Relationship Address: Address: [address] [address] [place] Name: DO Roblero Trevor S Position: Referring DIRECT Member Role: Primary Care Provider Address: Address: [facility] [address] [place] [address] [place] Care Team Related Persons Name: LEBRON BRYAN Address: home [address] [place] [address] [place] [phone] Name: LEBRON BRYAN Address: home [address] [facility] [place] [address]
--- OUTSIDE RECORDS SUMMARY | 2024-01-14 21:39 | External Medical Summary | Continuity of Care Document ---
Author Name Unknown Organization [facility] Address [address] [place] [address] [place] [id number] Care Team Providers Care Prn Occupational Therapist Name Role Phone Manish Roblero Primary Care Physician [phone] Encounter [facility] KARENR [id number] Date(s): 11/09/23 - 11/09/23 [facility] [address] [facility] [address], [place] [address]- [phone] Encounter Diagnosis Amyotrophic lateral sclerosis(Discharge Diagnosis) - 11/09/23 Dysphagia(Discharge Diagnosis) - 11/09/23 Chronic pain(Discharge Diagnosis) - 11/09/23 Excessive oral secretions(Discharge Diagnosis) - 11/09/23 DEPRESSION(Discharge Diagnosis) - 11/09/23 Chronic GERD(Discharge Diagnosis) - 11/09/23 Goals of care, counseling/discussion(Discharge Diagnosis) - 11/09/23 Debility(Discharge Diagnosis) - 11/09/23 Fatigue(Discharge Diagnosis) - 11/09/23 Palliative care encounter(Discharge Diagnosis) - 11/09/23 Discharge Disposition: Home or Self Care Attending Physician: MD Ferguson Kristina B Referring Physician: MD Ferguson Kristina B Allergies, Adverse Reactions, Alerts Substance Reaction Severity Status codeine itchy nausea Active fenoprofen unknown Active tetracycline rash Active chlorhexidine topical rash Active Persantine unknown Active shellfish welt rash Active IVP dye welts rash Active Percocet 5/325 1 nausea Active Carbocaine unknown Active Mepivacaine Hydrochloride unknown Ac tive Morphine Sulfate 2 nausea Active 1upset stomach 2upset stomach Assessment and Plan Extracted from: Title:Telehealth Visit Note Author:MD Ferguson Kristina B Date:11/09/23 1.Amyotrophic lateral scle rosis 88 year old female with history of Paroxysmal atrial fibrillation, HTN, HLD, CVA, 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 Her function is declining and she does not want to restart tube feeding or implement any other life prolonging interventions. Advised consideration of stopping ALS medications that contribute to life prolongation and consider hospice enrollment. She will consider and discuss with us further within one month. Encouarge to call Neurology for a sooner appointment if she wants to hear more about what her treatments are or are not doing for her. 2.Chronic pain Aching and neuropathic pain in BLE thatis worst at night -Consider Restart acetaminophen 480mg via G Tube po bid and as needed for pain - Change gabapentinvia 250mg/5mL oral solution to bidper her request(did not tolerate titration)*make note if pain worsens in afternoon/evening after doing this - Continue naproxen 125mg/5ml oral [id number]) bid and 150mg (6mL)- renal function in July 2023 adequate for this - Consider opioid analgesia if pain not improved, noting prior opioid induced nausea 3.Dysphagia Expect progression of dysphagia over time. Continue medications via tube. Validated patient's thought that she may never restart TF due to discomfort and desire to allow natural . 4.Excessive oral secretions Currently well managed, continue, scopolamine, glycopyrrolate per Neurology. 5.Debility - Home health/private dutyservices have limited availability, has not been able to secure any help with bathing etc as they had hoped. - Continue home health from [facility] from [phone] -Will look into eligibility for [facility] in her region 6.Chronic GERD Currently well managed, Famotidine & Pantoprazole 7.Fatigue Reiterated the need to pace herself and allow people to help her. 8.DEPRESSION Mood stable, has difficulty seeing the positive in things. Goal is to manage symptoms well enough to ensure participation and enjoyment in daily activities while minimizing side effects.Recommend continue: - Sertraline 100mg daily - Mirtazapine 30mg qhs - Encourage engagement in family activities/meaning-bringing activities 9.Goals of care, counseling/discussion Desires limited interventions including no mechanical ventilation or tracheostomy and no resuscitation. (POLST reflects this) Feels strongly about dying in her home which family aims to support. Accepts hospice when prognosis is less than 6 months and symptoms/care needs warrant(not now)- if starts losing weight and is not starting TF again, hospice would be indicated. 10.Palliative care encounter Will follow-up within3 weeks in order to discuss goals further. Provided our nurse phone number, fnn use when needs arise Today's scheduled clinic visit was scheduled as an audio-visualvisit via [facility]. The patient and/or surrogate provided [...] a prior visit in past 7 days. Visit duration = 51 minutes, the majority spent clarifying medication dosing and medication effects as well as discussing goals Lexie Ferguson MD [facility], [facility] Palliative Care, [address] [address] [email or web address] Medications baclofen 10 mg oral tablet Start: 09/29/23 14:01:00 EST, 0.5 tab, PO, bid Start Date: 09/29/23 Status: Ordered diclofenac 1% topical gel Start: 03/05/22 9:31:00 EDT, 1 appl, topical, qid, Disp# 400 g, Refills: 5, Apply up to 4 grams QIDPRN for right hip pain, PRN: Pain, Pharmacy: [id number] Start Date: 03/05/22 Stop Date: 09/01/22 Status: Ordered gabapentin 250 mg/5 mL oral solution Start: 08/06/23 11:43:00 EST, See Instructions, Disp# 540 mL, Refills: 3, 6 mL bid and 8mL qhs po or GT, Pharmacy: [facility] Start Date: 08/06/23 Status: Ordered glycopyrrolate 1 mg oral tablet Start: 09/29/23 13:58:00 EST, 1 tab, PEG-tube, tid, Disp# 270 tab, Refills: 3, Up to 1mg via PEG tube TID PRN secretions, Pharmacy: [facility] Start Date: 09/29/23 Stop Date: 09/23/24 Status: Ordered Imuran 50 mg oral tablet Start: 10/22/17 10:40:00, 1 tab, PO, Daily Start Date: 10/22/17 Status: Ordered mirtazapine 15 mg oral tablet Start: 10/22/17 10:40:00 EST, 1 tab, PO, qhs Start Date: 10/22/17 Status: Ordered naproxen 125 mg/5 mL oral suspension Start: 09/29/23 13:31:00 EST, See Instructions, Disp# 1,710 mL, Refills: 1, 6 mL PEG tube AM & afternoon, 7 mL HS, 90 day, Pharmacy: [facility] Start Date: 09/29/23 Status: Ordered ondansetron 4 mg oral tablet, disintegrating Start: 04/28/23 10:29:00 EDT, See Instructions, Disp# 60 tab, Refills: 3, allow 1 tablet to dissolve on tongue daily before tube feeding and every 6 hours as needed, PRN: as needed for nausea/vomiting, Pharmacy: [facility] Start Date: 04/28/23 Status: Ordered pantoprazole Start: 10/22/17 10:41:00, 40 mg =, PO, Daily Start Date: 10/22/17 Status: Ordered Probiotic Formula Start: 10/22/17 10:42:00, 1 cap, PO, Daily Start Date: 10/22/17 Status: Ordered Radicava ORS 105 mg/5 mL oral suspension Start: 06/30/23 9:47:00 EST, 5 mL, PO, Daily, Disp# 50 mL, Refills: 12, DRUG FREE PERIODS., Brand Medically Necessary, Pharmacy: [facility] Start Date: 06/30/23 Status: Ordered riluzole Start: [...] Effective Dates Status H ealth Status Informant Acute urinary retention Confirmed Active Amyotrophic lateral [...] Effective Dates Health Status Clinical Service Informant Excessive oral secretions Discharge Diagnosis 11/09/23 DEPRESSION Discharge Diagnosis 11/09/23 Dysphagia Discharge Diagnosis 11/09/23 Chronic pain Discharge Diagnosis 11/09/23 Chronic GERD Discharge Diagnosis 11/09/23 Goals of care, counseling/discuss ion Discharge Diagnosis 11/09/23 Debility Discharge Diagnosis 11/09/23 Amyotrophic lateral sclerosis Discharge Diagnosis 11/09/23 Fatigue Discharge Diagnosis 11/09/23 Palliative care encounter Discharge Diagnosis 11/09/23 Procedures Procedure Date Related Diagnosis Body Site [...] abnormality was identified on the acquired images. [address] [place] [address] Impression: 1.Mild dorsal soft tissue swelling. No fractures 3OPERATIVE PROCEDURES: 1. Right total elbow arthroplasty with a tourniquet component, small. 2. Ulnar nerve transposition. 4during childhood Social History Social History Type Response Smoking Status Former Smoker, quit > 1 yr Sex Female Palliative care Outpatient Note * MD Ferguson Kristina B: PERFORM Event Display: Palliative Care Outpt Note Authored Date: [id number] Chief Complaint Coping with ALS History of Present Illness 88 [...] since last visit. Since our last visit, her naproxen and gabapentin were increased and she reports bothersome dreams associated with the changes Issues discussed include: Vomiting- more episodes of vomiting lately, bringing up medications. unclear whether it correlates with increased naproxen. Makes her want to eat less often. Debility with falls: they report none since our last visit however walking is more unsteady. Nutrition- Has started losing weight now that she has been off TF for 4 months: reports she is downto 106lbs. Does not feel hungry. Sometimes sleeps through [...] tube. - see above re stopping feeding Pain- Worst in BLE. Throbbing and electric, remains bothersome at nighttime. - They ache most of the time, some days are far worse and including shooting pains that extend into her feet. Currently taking: - Gabapentin 250mg (5mL)potid oral solution- had nightmares/hallucinations in the past, tolerating lately, now attributes hallucinations to her ALS drug which was stopped. Tried titrating but felt it worsened her memory, so she returned to 250mg tid. Would like to skip midday dose. - Naproxen 125mg(5ml) bid, 150mg(6ml) qhs via [...] memory impairments that are progressing. Hospice introduction: Given her decline in function, weight loss and desire to avoid uncomfortable artificial feedings, recommend consideration of stopping ALS medications and consider hospice enrollment to support her and her family (family agree to this per her report and their presence during visit). Advised it is unclear to me whether she would notice any change in symptoms if/whenshe stops ALS meds. (ON prior visit) At [...] placed March 2022. On riluzole,sodium phenylbutyrate/taurursodiol(Relyvrio)and edavarone (Radicava). Illness understanding:Understands her condition cannot be cured [...] Code Status:Limited Support: DNR/DNI Advance Directive Documents:In EMR:[place] Orders Life-Sustaining Tx: [place] Orders Life-Sustaining Tx (07/21/22): DNR/Comfort measures/+trial antibtiocs/Ok tube feeding Patients decision making capacity:Intact Surrogate decision maker:SonLebron. Prognosis:Likely less than one year, potentially less than 6 months given her progressive weight loss and desire to avoid future tube feeding. Functional Status:Independent for ADLs and small jobs, uses walker/cane or transport wheelchairfor distances. Has fallen in the past. Needs assistance for ambulation outside of the house. Social History:, Lives [facility]. Son Lebron and IRINEO Walter actively involved and checking on her daily. Neighbors also checking in regularly. Has a renter living in basement who helps her if/when she needs it. Had 6 children total, 1 from colon cancer. 3 adult children are close by, 1 lives in [place] and has 5 children and a with MS. Total of 18 GK, 16GGK. Enjoys going out to eat, playing cards with neighbors "[employer]" Has a 'electronics system mechanic' who checks on her weekly from Home Health - home health from [facility] from [phone] Equity: During previous medical encounters, have you ever felt you have been treated differently thanother patients for any reason?Not yet discussed Caregiver Needs / Support:Adequate support identified Her children plan to stay with her if/when she needs more care as she intends to stay at home. She worries about being a burden to them butthey report unfaltering support to her. Spirituality:Strong rastafarian moira that gives her comfort that God [...] Involved Clinicians:Thang Bhatti PCP:DO ROBLERO TREVOR S (Oatmeal) [phone] (FAX Oatmeal) Review of Systems Review of systems positive for those listedabove, all others asked anddetermined to be negative Physical Exam Exam via telemedicine: General: Awake, alert and oriented, sitting upright on couch, slowly slouches down into couchover the course of the visit. Psych: Appropriate affect HEENT: Normocephalic, PERRL, external ears without abnormality, speaks slowly with some apraxia Neck: No JVD noted Chest: Breathing non [...] life prolonging interventions as her disease progresses. Her function is declining and she does not want to restart tube feeding or implement any other lifeprolonging interventions. Advised consideration of stopping ALS medications that contribute to life prolongation and consider hospice enrollment. She will consider and discuss with us further within one month. Encouarge to call Neurology for a sooner appointment if she wants to hear more about what her treatments are or are not doing for her. 2.Chronic pain Aching and neuropathic pain in BLE thatis worst at night -Consider Restart acetaminophen 480mg via G Tube po bid and as needed for pain - Change gabapentinvia 250mg/5mL oral solution to bidper her request(did not tolerate titration)*make note if pain worsens in afternoon/evening after doing this - Continue naproxen 125mg/5ml oral [id number]) bid and 150mg (6mL)- renal function in July 2023 adequate for this - Consider opioid analgesia if pain not improved, noting prior opioid induced nausea 3.Dysphagia Expect progression of dysphagia over time. Continue medications via tube. Validated patient's thought that she may never restart TF due to discomfort and desire to allow natural . 4.Excessive oral secretions Currently well managed, continue, scopolamine, glycopyrrolate per Neurology. 5.Debility - Home health/private dutyservices have limited availability, has not been able to secure any help with bathing etc as they had hoped. - Continue home health from [facility] from [phone] -Will look into eligibility for [facility] in her region 6.Chronic GERD Currently well managed, Famotidine & Pantoprazole 7.Fatigue Reiterated the need to pace herself and allow people to help her. 8.DEPRESSION Mood stable, has difficulty seeing the positive in things. Goal is to manage symptoms well enoughto ensure participation and enjoyment in daily activities while minimizing side effects.Recommendcontinue: - Sertraline 100mg daily - Mirtazapine 30mg qhs - Encourage engagement in family activities/meaning-bringing activities 9.Goals of care, counseling/discussion Desires limited interventions including no mechanical ventilation or tracheostomy and no resuscitation. (POL reflects this) Feels strongly about dying in her home which family aims to support. Accepts hospice when prognosis is less than 6 months and symptoms/care needs warrant(not now)- if starts losing weight and is not starting TF again, hospice would be indicated. 10.Palliative care encounter Will follow-up within3 weeks in order to discuss goals further. Provided our nurse phone number,[phone] use when needs arise Today's scheduled clinic visit was scheduled as an audio-visualvisit via [facility]. The patient and/or surrogate provided [...] a prior visit in past 7 days. Visit duration = 51 minutes, the majority spent clarifying medication dosing and medication effectsas well as discussing goals Lexie Ferguson MD [facility], [facility] Palliative Care, [address] [address] [email or web address] Problem List/Past Medical History Ongoing Acute urinary retention Amyotrophic lateral sclerosis Anxiety [...] 1972Appendectomy| Service Date: 1972Back surgery| Service Date: 1970Tonsillectomy Medications azaTHIOprine(Imuran 50 mg oral tablet), 50 [...] 1 tab, PEG-tube, tid, 3 refills mirtazapine(mirtazapine 15 mg oral tablet), 15 mg= 1 tab, PO, qhs naproxen(naproxen 125 [...] the next year) OverDue Adult Influenza Vaccine due02/13/23and every 1year Body Mass Index due07/22/23and every 366day Due Adult COVID-19 Vaccination due11/10/23Unknown Frequency Adult Social Determinants of Health Screening due11/10/23Unknown Frequency Adult Tdap/Td Vaccine due11/10/23Unknown Frequency Lipid Screening due11/10/23Unknown Frequency Medicare Annual Wellness Visit due11/10/23and every 1year Pneumococcal Vaccine Older Adults due11/10/23One-time only Shingles Vaccine due11/10/23One-time only Satisfied(in the past 1 year) There are no satisfied recommendations within the defined date range Lab Results BUN 28, Cr 0.9 Electronic Signature on File CC: Manish Roblero DO [facility] [address] [facility] [place] [address] * Electronically Reviewed/Signed by: Lexie Ferguson MD, [facility] Author Signature Dt/Tm::54 AM Chief, Palliative Care [facility] floor mechanic, [facility] Office: [phone] KBN Patient Care team information Care Team Personnel Name: TOM Christiansen Karyn Position: Physician Asst Exmpt - Orthopaedic Surg Member Role: Lifetime Relationship Address: Address: [address] [facility] [address] [place] [address] [place] Name: MD Ferguson Kristina B Position: Physician - Palliative Care Member Role: Lifetime Relationship Address: Address: [address] [place] [address] [place] Name: TOM Grace Cory D Position: Physician International Exchange Coordinator - Sports Medicine [place] Member Role: Lifetime Relationship Address: Address: [address] [facility] [address] [place] [address] Name: DO Roblero Trevor S Position: Referring DIRECT Member Role: Primary Care Provider Address: Address: [facility] [address] [facility] [place] [address] [place] Care Team Related Persons Name: LEBRON BRYAN Address: home [address] [place] [address] [place] [phone] Name: LEBRON BRYAN Address: home [address] [facility] [place] [address]
--- OUTSIDE RECORDS SUMMARY | 2024-01-14 21:39 | External Medical Summary ---
Author Name UNSPECIFIED Address Unknown Organization [facility] History of Encounters Reason for Assessment: Recertification ( follow-up) reassessment Functional Assessment Current Ability: Bathing: able to partic ipate in bathing self in shower or tub, but requires presence of another person throughout the bath for assistance or supervision. Current Ability: Ambulation: Able to wal k only with the supervision or assistance of another person at all times.
--- OUTSIDE RECORDS SUMMARY | 2024-01-14 21:39 | External Medical Summary | Summary of Care ---
Author Name Unknown Organization [facility] Address [address] [place] [address] Phone [phone] Care Team Providers Care School Clerk Name Role Phone Manish Roblero DO Primary Care Provider Reason for Visit * Reason Onset Date Comments Advice 12/22/2023 Encounter Details Date Type Department Care Team (Late st Contact Info) Description 12/22/2023 Telephone Family Practice [facility] [address] [facility] [place] [address] Manish Roblero DO [address] [place] [address] Advice Allergies Active Allergy Reactions Criticality Noted Date [...] as of this encounter (statuses as of 12/22/2023) Medications Medication Sig Dispensed Refills Start Date [...] as of this encounter (statuses as of 12/22/2023) Active Problems Problem Noted Date Diagnosed Date [...] as of this encounter (statuses as of 12/22/2023) Resolved Problems Problem Noted Date Diagnosed Date [...] as of this encounter (statuses as of 12/22/2023) Immunizations Name Administration Dates Next Due COVID-19 mRNA, LNP-s, No Pre serve, 2-Dose Series (FoodyDirect) 05/24/2021,11/03/2020,10/13/2020 Pneumococcal Conjugate Vacc, 13 Valent (Prevnar) [...] Telephone Encounter - Julia Allred RN - 12/22/2023 5:36 PM EDT Called Lashonda and left message on identified voice mail. * Telephone Encounter - Manish Roblero DO - 12/22/2023 12:20 PM EDT Ok thank you If they can come an hour prior to visit and get KUB Xray so that we have it for our visit that would be ideal If pain worsens In the meantime would advise ER * Telephone Encounter - Jeanne Mandujano LPN - 12/22/2023 11:22 AM EDT HH Concerns lashonda [place], Calling from: [facility] Report/Concerns of: abd pain Symptoms: see narrative Vitals: T98.8 P 55 RR 14 BP 128/72 SP O2 93 Narrative: pt has c/o distended abd starting 3 or 4 weeks. Pt states her stomach has been getting bigger and bigger. Her pain is intermitted at worse 8/10 best 4/10. Abd is soft, has active bowel sound. No N/V/D. Last bm yesterday 12/20 was normal. She is also having right sided abd pain at liver. Pthas hx of autoimmune hepatitis She takes Naproxen but not relief given. Appetite is poor, she has peg tube. She does take in some soft food by mouth. Pt stopped the radicava and riluzole about a 1.5 months ago, they was issue obtaining drugs from the pharm. She spoke Dr Ferguson neurology with [facility] told her stop taking both of them. I offered appts today and tomorrow with other providers, She refused she will only see Dr Roblero. "I've waited this long, I'll continue to wait." She did agree to an appt with Dr Roblero on 12/30 at 9am.-scheduled Call back Lashonda [phone] and patient [phone] with any advice or orders * Telephone Encounter - Rosangela Valverde OSA - 12/22/2023 11:14 AM EDT Reason for call: Home Health nurse report/ appt for pt with Dr Roblero only. Pt has distended stomach, pain in upper rt quadrant; pain level 8 Caller was transferred to Jeanne at the nurse line. documented in this encounter Plan of Treatment Upcoming Encounters Date Type Department Care Team (Late st Contact Info) Description 12/31/2023 9:00 AM EDT Office Visit Family Practice [facility] [address] [place] [address] Manish Roblero, [address] [place] [address] Scheduled Orders Name Type Priority Associated Diagnoses Orde r Schedule XR ABDOMEN 1 VIEW Medical Imaging STAT Abdominal pain, generalized Expected: 12/29/2023, Expires: 01/21/2025 Health Maintenance Due Date Last Done Comments [...] D LEVEL ONCE IN A LIFETIME-USE SMARTSET# [id number] Completed 12/12/2021, 11/30/2019, 04/08/2019, Additional history exists [...] this encounter Medical Devices Implanted Type Area Thread Checker Device Identifier Shelf Expiration Date Model / Serial / Lot Mesh Pelvic Gynamesh Gpsl - [id number] Implanted:Q[place]: 1 on [place] [facility] [place] Vagina [employer]W [employer] ANDREW 08/17/2011 GPSL / / [id number] documented as of this encounter Visit Diagnoses Diagnosis Abdominal pain, generalized- Primary documented in this encounter Advance Directives Documents on File Type Date Recorded Patient Buffer Automatic Expl anation Power of Manager Study 10/07/2007 Latest Code Status on File Code Status Date Activated Date Inactivated Comments Full Code 11/23/2013 7:56 AM 11/23/2013 4:01 PM This or kinjal reflects the patients wishes and were consensually agreed upon. Code Status History Code Status Date Activated Date Inactivated Comments Full Code 11/23/2007 12:38 AM 11/25/2007 1:34 PM Full Code 11/22/2007 4:51 PM 11/23/2007 12:38 AM Care Teams School Clerk Relationship Specialty Start Date End Date Manish Roblero DO [facility] [address] [place] [address] PCP - General Family Medicine 09/14/19 documented as of this encounter
--- OUTSIDE RECORDS SUMMARY | 2024-01-14 21:39 | External Medical Summary | Summary of Care ---
Author Name Unknown Organization [facility] Address [address] [place] [address] Phone [phone] Care Team Providers Care Spikemaking Supervisor Name Role Phone Manish Roblero DO Primary Care Provider Reason for Referral * Evaluate & Treat - Unlimited Visits (Within 3 days (urgent)) - Pending Review Specialty Diagnoses / Procedures Referred By Laurence ham Referred To Contact Sports Medicine / Orthopedics Diagnoses Acute pain of left shoulder Manish Roblero DO [address] [place] [address] Larry Swanson DO [address] [place] [address] Referral ID Status Reason Start Date Expiration Date Visits Requested Visits Authorized [id number] Pending Review Specialty Services Required 10/14/[phone] Question Answer Referral Priority Within 3 days (urgent) Where should this appointment be scheduled? [facility] What body part is the patient being seen for? Shoulder What condition is the patient being seen for? Arthritis including related infection Comments L shoulder pain and discomfort - please consider US guided injection into L shoulder Reason for Visit * Reason Comments Re-Check ALS symptoms, leg we akness, memory loss, discuss pain medication Encounter Details Date Type Department Care Team (Late st Contact Info) Description 10/14/2023 12:40 PM EST [facility] [place] [address] [place] [address] Manish Roblero, [address] [place] [address] ALS (amyotrophic lateral sclerosis) (HCC)*; Risk and functional assessment; Polyarthralgia; Myasthenia gravis (HCC); Myelopathy (HCC); Autoimmune hepatitis (HCC); Acute pain of left shoulder Allergies Active Allergy Reactions Criticality Noted Date [...] as of this encounter (statuses as of 10/15/2023) Medications Medication Sig Dispensed Refills Start Date [...] Active Sertraline HCl 100 MG Oral Tablet (Zoloft)Salinastio ns:ALS (amyotrophic lateral sclerosis) (HCC),Adjustment disorder with [...] 04/01/2023 Active Riluzole 50 MG Oral Tablet (Rilutek)Salinasti ons:ALS (amyotrophic lateral sclerosis) (HCC),Dysphagia, unspecified type,Dysarthria TAKE ONE TABLET BY MOUTH TWICE A DAY 60 Tablet 11 04/15/2023 Active Gabapentin 300 MG/6ML Oral SolutionIndicatio ns:ALS (amyotrophic lateral sclerosis) (HCC),Neuropathic pain Take 6 mL by mouth 3 times a day as needed for Pain, Severe or Pain, Moderate. 470 mL 3 04/30/2023 Active Hydrocortisone 2.5 % External Cream APPLY TOPICALLY TO AFFECTED AREA 2 TIMES A DAY 30 g 0 08/24/2023 Active Mirtazapine 30 MG Oral Tablet (Remeron)Salinasti ons:Adjustment disorder with depressed mood TAKE ONE [...] affected area 150 g 5 10/14/2023 Active Diclofenac Sodium 1 % External Gel (Voltaren) Apply 4 g topically to affected area 4 times a day as needed for Pain, Moderate. Apply to the affected area 150 g 5 07/01/2023 10/14/2023 Discontinue d(Refill) documented as of this encounter (statuses as of 10/15/2023) Active Problems Problem Noted Date Diagnosed Date [...] as of this encounter (statuses as of 10/15/2023) Resolved Problems Problem Noted Date Diagnosed Date [...] as of this encounter (statuses as of 10/15/2023) Immunizations Name Administration Dates Next Due COVID-19 mRNA, LNP-s, No Pre serve, 2-Dose Series (Pfizer) 05/24/2021,11/03/2020,10/13/2020 Pneumococcal Conjugate Vacc, 13 Valent (Prevnar) [...] Sign Reading Time Taken Comments Blood Pressure 138/68 10/14/2023 12:27 PM EST Pulse 64 10/14/2023 12:27 PM EST Temperature 36.6 C (97.8 F) 10/14/2023 12:[address] Respiratory Rate 16 10/14/2023 12:27 PM EST Oxygen Saturation - - Inhaled Oxygen Concentration - - Weight 49.9 kg (110 lb) 10/14/2023 12:27 PM EST Height - - Body Mass Index 18.3 11/20/2021 2:05 PM EDT documented in this encounter Patient Instructions * Patient Instructions* Julia Allred RN - 10/14/2023 12:27 PM EST Patient Instructions - Fall Prevention (This education is for all patients over 65 regardless of symptoms) Remember to take your current medications as prescribed. In order to prevent falls, you are encouraged to: Exercise Utilize assistive/adaptive devices Avoid multifocal lenses when walking Avoid hazards in home Maintain a regular toileting schedule Any questions please contact our office. Preventing Falls in the Home (This education is for all patients over 65 regardless of symptoms) As you get older, falls are more likely. Thats because your reaction time slows. Your muscles and joints may also get stiffer, making them less flexible. Illness, medications, and vision changes can also affect your balance. A fall could leave you unable to live on your own. To make your home safer, follow these tips: Floors Put nonskid pads under area rugs Remove throw rugs Replace worn floor coverings Tack carpets firmly to each step on carpeted stairs. Put nonskid strips on the edges of uncarpeted stairs Keep floors and stairs free of clutter and cords Arrange furniture so there are clear pathways Clean up any spills right away Bathrooms Install grab bars in the tub or shower Apply nonskid strips or put a nonskid rubber mat in the tub or shower Sit on a bath chair to bathe Use bathmats with nonskid backing Lighting Keep a flashlight in each room Put a nightlight along the pathway between the bedroom and the bathroom [facility] Patient Education Copyright 2009 - 2010 [facility] except where otherwise noted Preventing Falls: Exercises to Improve Balance, Flexibility, Strength, and Staying Power (This education is for all patients over 65 regardless of symptoms) Certain types of exercises may help make you less likely to fall. Try the ones below. Or do other exercises that your healthcare provider suggests. Depending on your health, you may need to start slowly. Dont let that stop you. Even small amounts of exercise can help you. Be sure to talk to yourhealthcare provider before starting any exercise program. Improve Balance Many types of exercise can help improve balance. Jeremiah chi and yoga are good examples. Heres another one to try. You can do it anytime and almost anywhere. Stand next to a counter or solid support. Push yourself up onto your tiptoes. Hold for 5 seconds. If you start to lose your balance, hold on to the counter. Rest and repeat 5 times. Work up to holding for 20 to 30 seconds, if you can. Increase Flexibility Being more flexible makes it easier for you to move around safely. Try exercises like the seated hamstring stretch. Sit in a chair and put one foot on a stool. Straighten your leg and reach with both hands down either side of your leg. Reach as far down your leg as you can. Hold for about 20 seconds. Go back to the starting position. Then repeat 5 times. Switch legs. Build Strength Resistance exercises help build strength. You can do them without equipment. Or you can use weights, elastic bands, or special machines. One such exercise is called the biceps curl. You can hold a 1 pound weight or even a can of soup. Do this exercise at least 3 times a week. Strive for everyday. Sit up straight in a chair. Keep your elbow close to your body and your wrist straight. Bend your arm, moving your hand up to your shoulder. Then slowly lower your arm. Repeat 5 times. Switch to the other arm. Build Your Staying Power Aerobic exercises make your heart and lungs stronger so you can keep moving longer. Walking and swimming are two of the best types of exercises you can do. Using a stationary bike is great, too. Find an aerobic exercise that you enjoy. Start slowly and build up. Even 5 minutes is helpful. Aimfor a goal of 30 minutes, at least 3 times a week. You dont have to do 30 minutes in one session. Break it up and walk a little throughout the day. More Helpful Tips Start easy. Slowly work up to doing more. Talk with your healthcare provider about the best exercises for you. Call senior centers or health clubs about exercise programs. If needed, have a family member watch you walk every so often to check your stability. Exercise with a friend. Choose an activity you both enjoy. Try exercises that you can do anytime, anywhere. Here are two examples. Have someone with you when you first try these: Practice walking by placing one foot right in front of the other. Stand up and sit down 10 times. Repeat this throughout the day. [facility] Patient Education Copyright 2008 [facility] except where otherwise noted. Preventing Falls: Moving Safely Using a Cane or Walker (This education is for all patients over 65 regardless of symptoms) Keep the cane away from your feet so you dont trip. A walking aid, such as a cane or walker, can help you stay more independent and avoid falls. Remember to keep your walking aid within easy reach when youre in a chair or in bed. And learn how to use it safely so you dont injure yourself. Using a Cane If you have a stronger side, hold the cane on that side. Get your balance. Move the cane and your weaker leg forward. Support your weight on both the cane and your weaker side. Step with your stronger leg. Start again from step 1. If youre using a folding walker, be sure you know how to lock it open. Check that its locked open before each use. Using a Walker Roll the walker (or lift it, if youre using one without wheels) forward about 12 inches. Step forward with your weaker leg first. Use the walker to help keep your balance. Bring your other foot forward to the center of the walker. Start again from step 1. Helpful Tips Check with your healthcare provider about the right walking aid to use. Ask about a walker with a seat attached. Check the tips of your cane or walker to make sure they have nonskid covers. Move slowly from room to room. Dont leslie. Sit down to get dressed. Use a booker pack or backpack to keep your hands free. Get help for jobs that mean climbing, even on a stepstool. [employer] [facility] Patient Education Copyright 2008 - 2010 [facility] except where otherwise noted. Urinary Incontinence Plan of Care Documentation: (This education is for all patients over 65 regardless of symptoms) Current medications reconciled. Patient encouraged to: Practice kegal exercises Provide education materials Use the restroom every 2 hours throughout the day Limit caffeine, alcohol, spicy foods and acidic foods Keep a bladder diary Limit fluid intake 3-4 hours before bed Lose weight Prevent constipation Take fluid pills at a time when you can get to the bathroom quickly Control sugar better if diabetic Limit fluid intake to 60 oz. per day Wear support stockings (TEDs)if you have edema Julia Allred RN 10/14/2023 Kegel Exercises Kegel exercises dont require special clothing or equipment. Theyre easy to learn and simple to do. And if you do them right, no one can tell youre doing them, so they can be done almost anywhere. Your doctor, nurse, or physical therapist can answer any questions you have and help you get started. A Weak Pelvic Floor The pelvic floor muscles may weaken due to aging, and vaginal childbirth, injury, surgery, chronic cough, or lack of exercise. If the pelvic floor is weak, your bladder and other pelvic organs may sag out of place. The urethra may also open too easily and allow urine to leak out. Kegel exercises can help you strengthen your pelvic floor muscles so they can better support the pelvic organs and control urine flow. How Kegel Exercises Are Done Try each of the Kegel exercises described below. When youre doing them, try not to move your leg, buttock, or stomach muscles. While youre urinating, try to stop the flow of urine. Start and stop it as often as you can. Contract as if you were stopping your urine stream, but do it when youre not urinating. Tighten your rectum as if trying not to pass gas. Contract your anus, but dont move your buttocks. Helpful Hints Do your Kegels as often as you can. The more you do them, the faster youll feel the results. Pick an activity you do often as a reminder. For instance, do your Kegels every time you sit down. Tighten your pelvic floor before you sneeze, get up from a chair, cough, laugh, or lift. This protects your pelvic floor from injury and can help prevent urine leakage. Try to hold each Kegel for a slow count to five. You probably wont be able to hold them for thatlong at first, but keep practicing. It will get easier as your pelvic floor gets stronger. Eventually, special weights that you place in your vagina may be recommended to help make your Kegels even more effective. [facility] Patient Education Copyright 2009 - 2010 [facility] except where otherwise noted. Here are some helpful tips for your urinary incontinence: (This education is for all patients over 65 regardless of symptoms) Practice Kegel exercises Use the restroom every 2 hours throughout the day Limit caffeine, alcohol, spicy foods, and acidic foods Keep a bladder diary Limit fluid intake 3-4 hours before bed Lose weight Prevent constipation Take fluid pills at a time when can get to the bathroom quickly Control sugar better if diabetic Limit fluid intake to 60 oz. per day Any questions, please feel free to contact our office. documented in this encounter Progress Notes * Manish Roblero, DO - 10/15/2023 8:01 AM EST Images from the original note were not included. Assessment and Plan ALS (amyotrophic lateral sclerosis) (HCC) Progressing ALS with weakness, speak difficulty, memory loss, and difficulty with PO tolerance at times. Remains committed to her moira, and is upbeat. Continue f/u with neurology and palliative medicine. Risk and functional assessment Polyarthralgia - Diclofenac Sodium 1 % External Gel (Voltaren); Apply 4 g topically to affected area 4 times a dayas needed for Pain, Moderate. Apply to the affected area Myasthenia gravis (HCC) Myelopathy (HCC) Autoimmune hepatitis (HCC) Acute pain of left shoulder Advise f/u with sports med for possible shoulder injection - SPORTS MEDICINE REFERRAL OP History of Present Illness VIKKI Shankar is a 88 year old female that presents for Re-Check (ALS symptoms, leg weakness, memory loss, discuss pain medication) Presents with progressing ALS Ongoing pain, managing ok, but L shoulder bothering her A lot - working with palliative med to try to keep Symptoms in check Physical Exam Vitals: 10/14/23 1227 Temp: 36.6 C (97.8 F) Pulse: 64 Resp: 16 BP: 138/68 Physical Exam Constitutional: Appearance: Normal appearance. HENT: Head: Normocephalic and atraumatic. Eyes: Extraocular Movements: Extraocular movements intact. Pupils: Pupils are equal, round, and reactive to light. Neurological: Mental Status: She is alert and oriented to person, place, and time. Motor: Weakness present. Coordination: Coordination abnormal. Psychiatric: Mood and Affect: Mood normal. Behavior: Behavior normal. Wrap-Up Time: Total time today was 45 minutes excluding any time spent in the performance of separately billed services. * Julia Allred RN - 10/14/2023 12:27 PM EST Fall Risk Plan of Care Documentation: - Current medications reconciled Patient encouraged to: - Exercise - Provide education materials for Core strengthening - Utilize assistive/adaptive devices - Provide education materials - Avoid multifocal lenses when walking - Avoid hazards in home - Provide education materials - Maintain a regular toileting schedule Julia Allred RN 10/14/2023 Urinary Incontinence Plan of Care Documentation: (This education is for all patients over 65 regardless of symptoms) Current medications reconciled. Patient encouraged to: Practice kegal exercises Provide education materials Use the restroom every 2 hours throughout the day Limit caffeine, alcohol, spicy foods and acidic foods Keep a bladder diary Limit fluid intake 3-4 hours before bed Lose weight Prevent constipation Take fluid pills at a time when you can get to the bathroom quickly Control sugar better if diabetic Limit fluid intake to 60 oz. per day Wear support stockings (TEDs)if you have edema Julia Allred RN 10/14/2023 documented in this encounter Plan of Treatment Scheduled Referrals Name Type Priority Associated Diagnoses Orde r Schedule SPORTS MEDICINE REFERRAL OP Referral Within 3 days (urgent) Acute pain of left shoulder Ordered: 10/14/2023 Health Maintenance Due Date Last Done Comments [...] D LEVEL ONCE IN A LIFETIME-USE SMARTSET# [id number] Completed 12/12/2021, 11/30/2019, 04/08/2019, Additional history exists [...] this encounter Medical Devices Implanted Type Area Calliope Player Device Identifier Shelf Expiration Date Model / Serial / Lot Mesh Pelvic Gynamesh Gpsl - [id number] Implanted:Qty: 1 on 11/22/2007 at [place] [facility] [place]/A: Vagina ANDREW [employer] ANDREW 08/17/2011 GPSL / / [id number] documented as of this encounter Visit Diagnoses Diagnosis ALS (amyotrophic lateral sclerosis) (HCC)- Primary Amyotrophic lateral sclerosis Risk and functional assessment Screening for unspecified condition Polyarthralgia Pain in joint, multiple sites Myasthenia gravis (HCC) Myasthenia gravis without exacerbation Myelopathy (HCC) Unspecified disease of spinal cord Autoimmune hepatitis (HCC) Autoimmune hepatitis Acute pain of left shoulder documented in this encounter Advance Directives Documents on File Type Date Recorded Patient Bookstore Clerk Expl anation Power of Model And Dye Person 10/07/2007 Latest Code Status on File Code Status Date Activated Date Inactivated Comments Full Code 11/23/2013 7:56 AM 11/23/2013 4:01 PM This o rder reflects the patients wishes and were consensually agreed upon. Code Status History Code Status Date Activated Date Inactivated Comments Full Code 11/23/2007 12:38 AM 11/25/2007 1:34 PM Full Code 11/22/2007 4:51 PM 11/23/2007 12:38 AM Care Teams Spikemaking Supervisor Relationship Specialty Start Date End Date Manish Roblero DO [address] [place] [address] PCP - General Family Medicine 09/14/19 documented as of this encounter
--- OUTSIDE RECORDS SUMMARY | 2024-01-14 21:40 | External Medical Summary | Summary of Care ---
Author Name Unknown Organization [facility] Address [address] [place] [address] Phone [phone] Care Team Providers Care Sales Support Assistant Name Role Phone Manish Roblero DO Primary Care Provider Reason for Visit * Reason Onset Date Comments FYI 07/23/2023 Encounter Details Date Type Department Care Team (Late st Contact Info) Description 07/23/2023 Telephone Family Practice [facility] [address] [facility] [address] Manish [facility]lero DO [address] [facility] [place] [address] FYI Allergies Active Allergy Reactions Criticality Noted Date [...] as of this encounter (statuses as of 07/27/2023) Medications Medication Sig Dispensed Refills Start Date [...] and 1 Tablet before bedtime. 0 Active Mirtazapine 30 MG Oral Tablet (Remeron)Indications :Adjustment disorder with depressed mood Take 1 Tablet (30 mg) by mouth at bedtime. 90 Tablet 5 06/23/2022 Active Water For Irrigation, Sterile (FEED TUBE WATER) TF .MEDSUPPLY 0 06/30/2022 Acti ve Multivitamin Adult Oral Tablet 1 Tablet. 0 06/24/2022 Active Radicava ORS 105 MG/5ML Oral Suspension (Edaravone) 5 mL 3 01/06/2023 Active Relyvrio 3-1 GM Oral Packet (Phenylbutyrate-Taur ursodiol) 90 Each 3 01/06/2023 Active azaTHIOprine 50 MG Oral Tablet (Imuran)Indications: Autoimmune hepatitis (HCC) Take 1 Tablet by mouth in the morning. 90 Tablet 1 01/09/2023 Active Sertraline HCl 100 MG Oral Tablet (Zoloft)Indications: ALS (amyotrophic lateral sclerosis) (HCC),Adjustment disorder with depressed mood Take 1/2 tablet by mouth or g-tube daily for 2 weeks then increase to 1 tablet by mouth/g tube daily. 90 Tablet 3 01/29/2023 Active Hydrocortisone 2.5 % External Cream APPLY TOPICALLY TO AFFECTED AREA 2 TIMES A DAY 30 g 0 03/25/2023 Active Pantoprazole Sodium 40 MG Oral Tablet [...] Pain, Moderate. 470 mL 3 04/30/2023 Active Diclofenac Sodium 1 % External Gel (Voltaren) Apply 4 g topically to affected area 4 times a day as needed for Pain, Moderate. Apply to the affected area 150 g 5 07/01/2023 Active documented as of this encounter (statuses as of 07/27/2023) Active Problems Problem Noted Date Diagnosed Date [...] as of this encounter (statuses as of 07/27/2023) Resolved Problems Problem Noted Date Diagnosed Date [...] as of this encounter (statuses as of 07/27/2023) Immunizations Name Administration Dates Next Due COVID-19 mRNA, LNP-s, No Pre serve, 2-Dose Series ([employer]) 05/24/2021,11/03/2020,10/13/2020 Pneumococcal Conjugate Vacc, 13 Valent (Prevnar) 09/07/2014 Pneumococcal Polysaccharide PPV23 (Pneumovax) 03/13/2017 SEASONAL INFLUENZA, PF, 6 M & Above, IM , (FLULAVAL or FLUZONE) 05/22/2020,07/07/2018 Seasonal Influenza, Quadriva lent Hd (Fluzone Hd) 07/06/2023,05/08/2022,07/30/2021 Seasonal Influenza, Quadriva lent, No Preserve, IM [...] Date Smoking Tobacco: Former Cigarettes 2 15 Q uit: 09/30/1972 Smokeless Tobacco: Never Alcohol Use Standard [...] encounter Miscellaneous Notes * Telephone Encounter - Nuvia Coe DO - 07/27/2023 10:09 AM EST Noted FYI to PCP * Telephone Encounter - Susan Vick LPN - 07/27/2023 8:07 AM EST Parvin from [facility] states that patient did not have any head trauma Patient did sustain a skin tear, small to left elbow, that was already starting to scab over when she saw patient - patient patient is wearing a tub-a-special projects manager and treating it with triple antibiotic ointment then covering with gauze and tape Parvin did discuss going to ER with patient when she saw her and patient was adamant about not going to the ER * Telephone Encounter - Angie Moore LPN - 07/24/2023 3:27 PM EST Called and LM regarding message below and for someone to call back regarding pt with any updates from fall last Thu. * Telephone Encounter - Nuvia Coe DO - 07/24/2023 2:19 PM EST Any head trauma? If yes, advise if any change in mental status to go to ER * Telephone Encounter - Iza Bynum OSA - 07/23/2023 11:51 AM EST Madeleine calling to inform the provider that the pt had a fall Wednesday 07/18 and had a skin tear on her left elbow that she is taking care of at home. documented in this encounter Plan of Treatment [...] D LEVEL ONCE IN A LIFETIME-USE SMARTSET# 74839 Completed 12/12/2021, 11/30/2019, 04/08/2019, Additional history exists Influenza Vaccine (FLU shot) Completed , 05/08/2022, 07/30/2021, Additional history exists GARDASIL-HPV IMMUNIZATION SERIES Aged Out No longer eligible based on patient's age to complete this topic Hepatitis B Aged Out No longer eligi ble based on patient's age to complete this topic MENINGOCOCCAL (MENACTRA/MENVEO) Aged Out No longer eligible based on patient's age to complete this topic documented as of this encounter Medical Devices Implanted Type Area Fisheries Inspector Device Identifier Shelf Expiration Date Model / Serial / Lot Mesh Pelvic Gynamesh Gpsl - [id number] Implanted:Qty: 1 on 11/22/2007 at OR [facility] [place] N/A: Vagina ANDREW & ANDREW 08/17/2011 GPSL / / [id number] documented as of this encounter Advance Directives Documents on File Type Date Recorded Patient Pipe Fitter Street Service Expl anation Power of Telecommunication Systems Designer 10/07/2007 Latest Code Status on File Code Status Date Activated Date Inactivated Comments Full Code 11/23/2013 7:56 AM 11/23/2013 4:01 PM This or kinjal reflects the patients wishes and were consensually agreed upon. Code Status History Code Status Date Activated Date Inactivated Comments Full Code 11/23/2007 12:38 AM 11/25/2007 1:34 PM Full Code 11/22/2007 4:51 PM 11/23/2007 12:38 AM Care Teams Sales Support Assistant Relationship Specialty Start Date End Date Manish Roblero DO [address] [place] [address] PCP - General Family Medicine 09/14/19 documented as of this encounter
--- OUTSIDE RECORDS SUMMARY | 2024-01-14 21:40 | External Medical Summary | Summary of Care ---
Author Name Unknown Organization [facility] Address [address] [place] [address] Phone [phone] Care Team Providers Care Authorization Nurse Name Role Phone Manish Roblero DO Primary Care Provider Encounter Details Date Type Department Care Team (Late st Contact Info) Description 08/07/2023 Orders Only Laboratory, [facility] [address] [place] [phone] KerseyLexie MD [address] [place] [address] [place] [address] Allergies Active Allergy Reactions Criticality Noted Date [...] as of this encounter (statuses as of 08/07/2023) Medications Medication Sig Dispensed Refills Start Date [...] as of this encounter (statuses as of 08/07/2023) Active Problems Problem Noted Date Diagnosed Date [...] as of this encounter (statuses as of 08/07/2023) Resolved Problems Problem Noted Date Diagnosed Date [...] as of this encounter (statuses as of 08/07/2023) Immunizations Name Administration Dates Next Due COVID-19 mRNA, LNP-s, No Pre serve, 2-Dose Series ([employer]) 05/24/2021,11/03/2020,10/13/2020 Pneumococcal Conjugate Vacc, 13 Valent (Prevnar) [...] on file documented as of this encounter Plan of Treatment Health Maintenance [...] D LEVEL ONCE IN A LIFETIME-USE SMARTSET# [id number] Completed 12/12/2021, 11/30/2019, 04/08/2019, Additional history exists [...] this encounter Medical Devices Implanted Type Area Biomedical Engineering Technician Device Identifier Shelf Expiration Date Model / Serial / Lot Mesh Pelvic Gynamesh Gpsl - [id number] Implanted:Qty: 1 on 11/22/2007 at OR [facility] [place] N/A: Vagina ANDREW & ANDREW 08/17/2011 GPSL / / [id number] documented as of this encounter Advance Directives Documents on File Type Date Recorded Patient Stay Cutter Expl anation Power of Matchbook Assembler 10/07/2007 Latest Code Status on File Code Status Date Activated Date Inactivated Comments Full Code 11/23/2013 7:56 AM 11/23/2013 4:01 PM This or kinjal reflects the patients wishes and were consensually agreed upon. Code Status History Code Status Date Activated Date Inactivated Comments Full Code 11/23/2007 12:38 AM 11/25/2007 1:34 PM Full Code 11/22/2007 4:51 PM 11/23/2007 12:38 AM Care Teams Authorization Nurse Relationship Specialty Start Date End Date Manish Roblero DO [address] [place] [address] PCP - General Family Medicine 09/14/19 documented as of this encounter
--- OUTSIDE RECORDS SUMMARY | 2024-01-14 21:40 | External Medical Summary ---
Author Name UNSPECIFIED Address Unknown Organization [facility] History of Encounters Reason for Assessment: Recertification ( follow-up) reassessment Functional Assessment Current Ability: Bathing: Able to bathe in shower or tub with the intermittent assistance of another person: (a) for intermittent supervision or encouragement or reminders, OR (b) to get in and out of the shower or tub, OR (c) for washing difficult to reach areas. Current Ability: Ambulation: Requires us e of a two-handed device (e.g., walker or crutches) to walk alone on a level surface and/or requires human supervision or assistance to negotiate stairs or steps or uneven surfaces.
--- OUTSIDE RECORDS SUMMARY | 2024-01-14 21:40 | External Medical Summary | Continuity of Care Document ---
Author Name Unknown Organization [facility] Address [address] [place] [address] [place] [id number] Care Team Providers Care Insurance Counsel Name Role Phone Manish Roblero Primary Care Physician [phone] Encounter [facility] [id number] Date(s): 07/27/23 - 07/27/23 [facility] [address] [facility] [address], [place] [address]- [phone] Encounter Diagnosis Amyotrophic lateral sclerosis(Discharge Diagnosis) - 07/24/23 Dysphagia(Discharge Diagnosis) - 07/24/23 Excessive oral secretions(Discharge Diagnosis) - 07/24/23 Depression with anxiety(Discharge Diagnosis) - 07/24/23 Goals of care, counseling/discussion(Discharge Diagnosis) - 07/24/23 Palliative care encounter(Discharge Diagnosis) - 07/24/23 Discharge Disposition: Home or Self Care Attending [...] 2 nausea Active 1upset stomach 2upset stomach Medications diclofenac 1% topical gel Start: 03/05/22 9:31:00 EDT, 1 appl, topical, qid, Disp# 400 g, Refills: 5, Apply up to 4 grams QIDPRN for right hip pain, PRN: Pain, Pharmacy: [id number] Start Date: 03/05/22 Stop Date: 09/01/22 Status: Ordered gabapentin 250 mg/5 mL oral solution Start: 01/21/23 15:12:00 EDT, 6 mL, PO, qhs, Disp# 180 mL, Refills: 3, Pharmacy: [email or web address] [place] [address] Start Date: 01/21/23 Stop Date: 05/21/23 Status: Ordered glycopyrrolate 1 mg oral tablet Start: 11/07/22 11:19:00 EDT, 1 tab, PO, qAM Start Date: 11/07/22 Status: Ordered Imuran 50 mg oral tablet Start: 10/22/17 10:40:00, 1 tab, PO, Daily Start Date: 10/22/17 Status: Ordered mirtazapine 15 mg oral tablet Start: 10/22/17 10:40:00 EST, 1 tab, PO, qhs Start Date: 10/22/17 Status: Ordered naproxen 125 mg/5 mL oral suspension Start: 02/11/23 8:42:00 EDT, 5 mL, PO, tid, Disp# 450 mL, Refills: 5, Pharmacy: [email or web address] [place] [address] Start Date: 02/11/23 Stop Date: 08/10/23 Status: Ordered ondansetron 4 mg oral tablet, disintegrating Start: 04/28/23 10:29:00 EDT, See Instructions, Disp# 60 tab, Refills: 3, allow 1 tablet to dissolve on tongue daily before tube feeding and every 6 hours as needed, PRN: as needed for nausea/vomiting, Pharmacy: [email or web address] [place] [address] Start Date: 04/28/23 Status: Ordered pantoprazole Start: 10/22/17 10:41:00, 40 mg =, PO, Daily Start Date: 10/22/17 Status: Ordered Probiotic Formula Start: 10/22/17 10:42:00, 1 cap, PO, Daily Start Date: 10/22/17 Status: Ordered Radicava ORS 105 mg/5 mL oral suspension Start: 06/30/23 9:47:00 EST, 5 mL, PO, Daily, Disp# 50 mL, Refills: 12, DRUG FREE PERIODS., Brand Medically Necessary, Pharmacy: [facility] Start Date: 06/30/23 Status: Ordered riluzole Start: [...] pain Confirmed Active Muscle cramps Confirmed Active DEPRESSION Confirmed Active High risk medications (not anticoagulants) long-term use Confirmed Active Dysarthria Confirmed Active Dysphagia Confirmed Active Elbow pain Confirmed Active Excessive oral secretions Confirmed Active Hepatitis Confirmed Active Hip pain [...] Service Informant Excessive oral secretions Discharge Diagnosis 07/24/23 Depression with anxiety Discharge Diagnosis 07/24/23 Goals of care, counseling/discuss ion Discharge Diagnosis 07/24/23 Palliative care encounter Discharge Diagnosis 07/24/23 Dysphagia Discharge Diagnosis 07/24/23 Amyotrophic lateral sclerosis Discharge Diagnosis 07/24/23 Procedures Procedure Date Related Diagnosis Body Site Status Barium swallow 1 10/30/17 Complete d X-ray of left foot 2 05/21/16 Comp leted Hip replacement 2014 Completed throat stretched operation planned 2014 Completed Right elbow 3 07/10/14 Completed Endoscopy & throat stretchin g multiple 2013 Completed Right elbow debridement 10/21/12 C ompleted Injection 09/2009 Completed Abdominal wall/pelvic wall 11/2006 Completed Medtronic implant in hip 2002 Completed Neck surgery 1997 Completed Appendectomy 1972 Completed Hysterectomy 1972 Completed Back surgery 1970 Completed Tonsillectomy 4 Completed 11) Aspiration was observed and the examination was discontinued. 2) No esophageal abnormality was identified on the acquired images. [address] [place] [address] Impression: 1.Mild dorsal soft tissue swelling. No fractures 3OPERATIVE PROCEDURES: 1. Right total elbow arthroplasty with a tourniquet component, small. 2. Ulnar nerve transposition. 4during childhood Social History Social History Type Response Smoking Status Former Smoker, quit > 1 yr Sex Female Patient Care team information Care Team Personnel Name: TOM Christiansen Karyn Position: Physician Asst Exmpt - Orthopaedic Surg Member Role: Lifetime Relationship Address: Address: [address] [facility] [address] [place] [address] Name: MD Ferguson Kristina B Position: Physician - Palliative Care Member Role: Lifetime Relationship Address: Address: [address] [place] [address] Name: TOM Grace Cory D Position: Physician Religious Educator - Sports Medicine [place] Member Role: Lifetime Relationship Address: Address: [address] [facility] [address] [place] [address] Name: DO Roblero Trevor S Position: Referring DIRECT Member Role: Primary Care Provider Address: Address: [facility] [address] [facility] [place] [address] [place] Care Team Related Persons Name: LEBRON BRYAN Address: home [address] [place] [address] [place] [phone] Name: LEBRON BRYAN Address: home [address] [facility] [place] [address]
--- OUTSIDE RECORDS SUMMARY | 2024-01-14 21:40 | External Medical Summary ---
Author Name Unknown Address Unknown Organization [facility] [address] [place] [address] Laboratory Report Ordering Provider Test Date Status KIAN HOLLINGSWORTH 08/13/2023 10:59:59 Final Observation Date Value Abnormality Reference (Units ) Status BUN 08/13/2023 10:59:59 28 Above high normal 6-20 (mg/dL) Final Creatinine 08/13/2023 10:59:59 0.9 0.5-1.0 (mg/dL) Final Glomerular filtration rate/1.73 sq M.predicted [Volume Rate/Area] in Serum, Plasma or Blood by Creatinine-based formula (CKD-EPI) 08/13/2023 10:59:59 60 >=60 (mL/min) Final eGFR is calculated based on the CKD-EPI 2020 equation SODIUM 08/13/2023 10:59:59 141 135-146 (m mol/L) Final Potassium 08/13/2023 10:59:59 4.4 3.5-5.1 (m mol/L) Final Cl 08/13/2023 10:59:59 103 98-107 (mm ol/L) Final CO2 08/13/2023 10:59:59 26 22-32 (mmo l/L) Final Anion gap 08/13/2023 10:59:59 12 7-15 (mmol /L) Final Glucose 08/13/2023 10:59:59 104 70-120 (mg /dL) Final Albumin 08/13/2023 10:59:59 3.8 3.8-5.0 (g /dL) Final AST (Aspartate aminotransferase) 08/13/2023 10:59:59 30 10-35 (U/L) Fin al Alk Phos 08/13/2023 10:59:59 164 Above high normal 35 -130 (U/L) Final Bilirubin, Total 08/13/2023 10:59:59 0.5 <=1 .2 (mg/dL) Final Calcium 08/13/2023 10:59:59 9.7 8.4-10.2 ( mg/dL) Final Protein 08/13/2023 10:59:59 7.0 6.0-8.3 (g /dL) Final ALT (Alanine aminotransferase) 08/13/2023 10:59:59 12 10-35 (U/L) Fei kelley Performing Location [facility] [address] [facility] [address]
--- OUTSIDE RECORDS SUMMARY | 2024-01-14 21:40 | External Medical Summary | Summary of Care ---
Author Name Unknown Organization [facility] Address [address] [place] [address] Phone [phone] Care Team Providers Care Process Validation Engineer Name Role Phone Raquel Roblero DO Primary Care Provider Reason for Visit * Reason Comments eRx-Medication Refill Encounter Details Date Type Department Care Team (Late st Contact Info) Description 09/14/2023 Refill Family Practice [facility] [address] [facility] [address] Krupa Bob CRNP [address] [facility] [address] Autoimmune hepatitis (HCC) Allergies Active Allergy Reactions Criticality Noted Date [...] as of this encounter (statuses as of 09/15/2023) Medications Medication Sig Dispensed Refills Start Date [...] affected area 150 g 5 07/01/2023 Active Hydrocortisone 2.5 % External Cream APPLY [...] EVERY MORNING 90 Tablet 1 09/15/2023 Active azaTHIOprine 50 MG Oral Tablet (Imuran)Indicatio ns:Autoimmune hepatitis (HCC) Take 1 Tablet by mouth in the morning. 90 Tablet 1 01/09/2023 Discontinued documented as of this encounter (statuses as of 09/15/2023) Active Problems Problem Noted Date Diagnosed Date [...] as of this encounter (statuses as of 09/15/2023) Resolved Problems Problem Noted Date Diagnosed Date [...] as of this encounter (statuses as of 09/15/2023) Immunizations Name Administration Dates Next Due COVID-19 [...] Telephone Encounter - Raquel Roblero DO - 09/15/2023 10:05 AM EST Signed Prescriptions: Disp Refills azaTHIOprine 50 MG Oral Tablet (Imuran) 90 Tab*1 Sig: TAKE ONE TABLET BY MOUTH EVERY MORNING Authorizing Provider: RAQUEL ROBLERO * Telephone Encounter - Karen Alba LPN - 09/15/2023 6:45 AM ESTPending Prescriptions: Disp Refills azaTHIOprine 50 MG Oral Tablet [Pharmacy M*90 Tab*1 Sig: TAKE ONE TABLET BY MOUTH EVERY MORNING * Telephone Encounter - Karen Alba LPN - 09/15/2023 6:45 AM EST Did you pend patient's preferred pharmacy and medication before forwarding?yes Pharmacy: [facility] [address] Pending Prescriptions: Disp Refills azaTHIOprine 50 MG Oral Tablet (Imuran) [*90 Tab*1 Sig: TAKE ONE TABLET BY MOUTH EVERY MORNING Last Visit: 04/30/2023 (in office), 01/06/2023 (telemedicine) Next Visit: Visit date not found If no future appointments scheduled, and last appointment is greater than a year ago, please schedule patient for a follow-up appointment Last date the medication was ordered: 01/09/23 Is this request for a controlled substance?No [...] PM HGBA1C 5.8 (H) 03/15/2020 12:49 PM * Telephone Encounter - Tavon Jeffery - 09/14/2023 10:08 PM ESTPending Prescriptions: Disp Refills azaTHIOprine 50 MG Oral Tablet [Pharmacy M*90 Tab*1 Sig: TAKE ONE TABLET BY MOUTH EVERY MORNING documented in this encounter Plan of Treatment [...] D LEVEL ONCE IN A LIFETIME-USE SMARTSET# 99987 Completed 12/12/2021, 11/30/2019, 04/08/2019, Additional history exists [...] this encounter Medical Devices Implanted Type Area Optimization Analyst Device Identifier Shelf Expiration Date Model / Serial / Lot Mesh Pelvic Gynamesh Gpsl - [id number] Implanted:Qty: 1 on 11[place]22/[place] [facility] [place]A: Vagina ANDREW & ANDREW 08/17/2011 GPSL / / [id number] documented as of this encounter Visit Diagnoses Diagnosis Autoimmune hepatitis (HCC) Autoimmune hepatitis documented in this encounter Advance Directives Documents on File Type Date Recorded Patient Tank Wagon Driver Expl anation Power of Medical Office Technician 10/07/2007 Latest Code Status on File Code Status Date Activated Date Inactivated Comments Full Code 11/23/2013 7:56 AM 11/23/2013 4:01 PM This or kinjal reflects the patients wishes and were consensually agreed upon. Code Status History Code Status Date Activated Date Inactivated Comments Full Code 11/23/2007 12:38 AM 11/25/2007 1:34 PM Full Code 11/22/2007 4:51 PM 11/23/2007 12:38 AM Care Teams Process Validation Engineer Relationship Specialty Start Date End Date Raquel Roblero DO [address] [place] [address] PCP - General Family Medicine 09/14/19 documented as of this encounter
--- OUTSIDE RECORDS SUMMARY | 2024-01-14 21:40 | External Medical Summary | Summary of Care ---
Author Name Unknown Organization [facility] Address [address] [place] [address] Phone [phone] Care Team Providers Care Boarding Kennel Or Cattery Operator Name Role Phone Manish Roblero DO Primary Care Provider Reason for Visit * Reason Comments eRx-Medication Refill Encounter Details Date Type Department Care Team (Late st Contact Info) Description 08/20/2023 Refill Family Practice [facility] [address] [facility] [address] Krupa Schulz CRNP [address] [facility] [address] Allergies Active Allergy Reactions Criticality Noted Date [...] as of this encounter (statuses as of 08/24/2023) Medications Medication Sig Dispensed Refills Start Date [...] 0 Active Mirtazapine 30 MG Oral Tablet (Remeron)Indicati ons:Adjustment disorder with depressed mood Take 1 Tablet (30 mg) by mouth at bedtime. 90 Tablet 5 06/23/2022 Active Water For Irrigation, Sterile (FEED TUBE WATER) TF .MEDSUPPLY 0 06/30/2022 Active Multivitamin Adult Oral Tablet 1 Tablet. 0 06/24/2022 Active Radicava ORS 105 MG/5ML Oral Suspension (Edaravone) 5 mL 3 01/06/2023 Active Relyvrio 3-1 GM Oral Packet (Phenylbutyrate-T aurursodiol) 90 Each 3 01/06/2023 Active azaTHIOprine 50 MG Oral Tablet (Imuran)Indicatio [...] A DAY 30 g 0 08/24/2023 Active Hydrocortisone 2.5 % External Cream APPLY TOPICALLY TO AFFECTED AREA 2 TIMES A DAY 30 g 0 03/25/2023 Discontinued documented as of this encounter (statuses as of 08/24/2023) Active Problems Problem Noted Date Diagnosed Date [...] as of this encounter (statuses as of 08/24/2023) Resolved Problems Problem Noted Date Diagnosed Date [...] as of this encounter (statuses as of 08/24/2023) Immunizations Name Administration Dates Next Due COVID-19 mRNA, LNP-s, No Pre serve, 2-Dose Series (im3D) 05/24/2021,11/03/2020,10/13/2020 Pneumococcal Conjugate Vacc, 13 Valent (Prevnar) [...] encounter Miscellaneous Notes * Telephone Encounter - Krupa Schulz CRNP - 08/24/2023 8:33 AM EST Signed Prescriptions: Disp Refills Hydrocortisone 2.5 % External Cream 30 g 0 Sig: APPLY TOPICALLY TO AFFECTED AREA 2 TIMES A DAY Authorizing Provider: KRUPA SCHULZ * Telephone Encounter - Karen Alba LPN - 08/24/2023 6:57 AM ESTPending Prescriptions: Disp Refills Hydrocortisone 2.5 % External Cream [Pharm*30 g 0 Sig: APPLY TOPICALLY TO AFFECTED AREA 2 TIMES A DAY * Telephone Encounter - Karen Alba LPN - 08/24/2023 6:57 AM EST Did you pend patient's preferred pharmacy and medication before forwarding?yes Pharmacy: [facility] [id number] Pending Prescriptions: Disp Refills Hydrocortisone 2.5 % External Cream [Phar*30 g 0 Sig: APPLY TOPICALLY TO AFFECTED AREA 2 TIMES A DAY Last Visit: 04/30/2023 (in office), 01/06/2023 (telemedicine) Next Visit: Visit date not found If no future appointments scheduled, and last appointment is greater than a year ago, please schedule patient for a follow-up appointment Last date the medication was ordered: 03/25/23 Is this request for a controlled substance?No [...] * Telephone Encounter - Tavon Jeffery - 08/21/2023 7:04 PM ESTPending Prescriptions: Disp Refills Hydrocortisone 2.5 % External Cream [Pharm*30 g 0 Sig: APPLY TOPICALLY TO AFFECTED AREA 2 TIMES A DAY documented in this encounter Plan of Treatment [...] D LEVEL ONCE IN A LIFETIME-USE SMARTSET# [id number] Completed 12/12/2021, 11/30/2019, 04/08/2019, Additional history exists [...] this encounter Medical Devices Implanted Type Area Sign Builder Supervisor Device Identifier Shelf Expiration Date Model / Serial / Lot Mesh Pelvic Gynamesh Gpsl - [id number] Implanted:Qty: 1 on 11/22/2007 at OR [facility] [place] N/A: Vagina ANDREW [employer] ANDREW 08/17/2011 GPSL / / [id number] documented as of this encounter Advance Directives Documents on File Type Date Recorded Patient Dragline Operator Expl anation Power of Medical Detail Representative 10/07/2007 Latest Code Status on File Code Status Date Activated Date Inactivated Comments Full Code 11/23/2013 7:56 AM 11/23/2013 4:01 PM This or kinjal reflects the patients wishes and were consensually agreed upon. Code Status History Code Status Date Activated Date Inactivated Comments Full Code 11/23/2007 12:38 AM 11/25/2007 1:34 PM Full Code 11/22/2007 4:51 PM 11/23/2007 12:38 AM Care Teams Boarding Kennel Or Cattery Operator Relationship Specialty Start Date End Date Manish Roblero DO [address] [place] [address] PCP - General Family Medicine 09/14/19 documented as of this encounter
--- OUTSIDE RECORDS SUMMARY | 2024-01-14 21:40 | External Medical Summary | Summary of Care ---
Author Name Unknown Organization [facility] Address [address] [place] [address] Phone [phone] Care Team Providers Care Potato Pancake Frier Name Role Phone Manish Roblero DO Primary Care Provider Reason for Visit * Reason Comments Outpatient Testing Encounter Details Date Type Department Care Team (Late st Contact Info) Description 08/13/2023 11:10 AM EST Laboratory Laboratory, [facility] [address] [place] [id number] [facility] [address] [place] [address] ALS (amyotrophic lateral sclerosis) ([facility]) Allergies Active Allergy Reactions Criticality [...] as of this encounter (statuses as of 08/13/2023) Medications Medication Sig Dispensed Refills Start Date [...] as of this encounter (statuses as of 08/13/2023) Active Problems Problem Noted Date Diagnosed Date [...] as of this encounter (statuses as of 08/13/2023) Resolved Problems Problem Noted Date Diagnosed Date [...] as of this encounter (statuses as of 08/13/2023) Immunizations Name Administration Dates Next Due COVID-19 mRNA, LNP-s, No Pre serve, 2-Dose Series (AdMobilize) 05/24/2021,11/03/2020,10/13/2020 Pneumococcal Conjugate Vacc, 13 Valent (Prevnar) [...] as of this encounter Plan of Treatment Pending Results Name Type Priority Associated Diagnoses Date /Time COMPREHENSIVE METABOLIC PANEL Lab Routine ALS (amyotrophic lateral sclerosis) (HCC) 08/13/2023 10:59 AM EST Health Maintenance Due Date Last Done Comments [...] D LEVEL ONCE IN A LIFETIME-USE SMARTSET# [id number] Completed 12/12/2021, 11/30/2019, 04/08/2019, Additional history exists [...] this encounter Medical Devices Implanted Type Area Lubricating Specialist Device Identifier Shelf Expiration Date Model / Serial / Lot Mesh Pelvic Gynamesh Gpsl - [id number] Implanted:Qty: 1 on 11/22/2007 at OR [facility] [place] N/A: Vagina ANDREW & ANDREW 08/17/2011 GPSL / / [id number] documented as of this encounter Visit Diagnoses Diagnosis ALS (amyotrophic lateral sclerosis) (HCC) Amyotrophic lateral sclerosis documented in this encounter Advance Directives Documents on File Type Date Recorded Patient Arc Welder Expl anation Power of Tufting Machine Operator 10/07/2007 Latest Code Status on File Code Status Date Activated Date Inactivated Comments Full Code 11/23/2013 7:56 AM 11/23/2013 4:01 PM This or kinjal reflects the patients wishes and were consensually agreed upon. Code Status History Code Status Date Activated Date Inactivated Comments Full Code 11/23/2007 12:38 AM 11/25/2007 1:34 PM Full Code 11/22/2007 4:51 PM 11/23/2007 12:38 AM Care Teams Potato Pancake Frier Relationship Specialty Start Date End Date Manish Roblero DO [address] [facility] [place] [address] PCP - General Family Medicine 09/14/19 documented as of this encounter
--- OUTSIDE RECORDS SUMMARY | 2024-01-14 21:40 | External Medical Summary | Summary of Care ---
Author Name Unknown Organization [facility] Address [address] [place] [address] Phone [phone] Care Team Providers Care Explosive Operator Supervisor Name Role Phone Manish Roblero DO Primary Care Provider Reason for Visit * Reason Onset Date Comments FYI 05/14/2023 Encounter Details Date Type Department Care Team (Late st Contact Info) Description 05/14/[address] [facility] [address] [facility] [address] Manish [facility]lero DO [address] [facility] [place] [address] Allergies Active Allergy Reactions Criticality Noted Date [...] Pain, Moderate. 470 mL 3 04/30/2023 Active documented as of this encounter (statuses [...] Seasonal Influenza, Quadriva lent Hd (Fluzone Hd) 05/08/2022,07/30/2021 Seasonal Influenza, Quadriva lent, No Preserve, IM [...] encounter Miscellaneous Notes * Telephone Encounter - Ngoc Frausto LPN - 05/15/2023 10:37 AM EDT From [facility]. * Telephone Encounter - Virgie Joe OSA - 05/14/2023 1:13 PM EDT Jazlyn wants you to know patient agreed to start services on 05/18/23 documented in this encounter Plan of Treatment [...] D LEVEL ONCE IN A LIFETIME-USE SMARTSET# [id number] Completed 12/12/2021, 11/30/2019, 04/08/2019, Additional history exists [...] this encounter Medical Devices Implanted Type Area Desktop Technician Device Identifier Shelf Expiration Date Model / Serial / Lot Mesh Pelvic Gynamesh Gpsl - [id number] Implanted:Qty: 1 on 11/22/2007 [place] [facility] [place]: Vagina [employer]W [employer] ANDREW 08/17/2011 GPSL / / [id number] documented as of this encounter Advance Directives Documents on File Type Date Recorded Patient Accounts Receivable Specialist Expl anation Power of Verifying Machine Operator 10/07/2007 Latest Code Status on File Code Status Date Activated Date Inactivated Comments Full Code 11/23/2013 7:56 AM 11/23/2013 4:01 PM This or kinjal reflects the patients wishes and were consensually agreed upon. Code Status History Code Status Date Activated Date Inactivated Comments Full Code 11/23/2007 12:38 AM 11/25/2007 1:34 PM Full Code 11/22/2007 4:51 PM 11/23/2007 12:38 AM Care Teams Explosive Operator Supervisor Relationship Specialty Start Date End Date Manish Roblero DO [address] [place] [address] PCP - General Family Medicine 09/14/19 documented as of this encounter
--- OUTSIDE RECORDS SUMMARY | 2024-01-14 21:40 | External Medical Summary | Summary of Care ---
Author Name Unknown Organization [facility] Address [address] [place] [address] Phone [phone] Care Team Providers Care Fatback Trimmer Name Role Phone Manish Roblero DO Primary Care Provider Reason for Visit * Reason Comments Outpatient Testing Encounter Details Date Type Department Care Team (Late st Contact Info) Description 08/13/2023 11:10 AM EST Laboratory Laboratory, [facility] [address] [place] [phone] [facility] [address] [place] [address] ALS (amyotrophic lateral sclerosis) ([facility]) Allergies Active Allergy Reactions Criticality [...] mRNA, LNP-s, No Pre serve, 2-Dose Series (GlobalLogic) 05/24/2021,11/03/2020,10/13/2020 Pneumococcal Conjugate Vacc, 13 Valent (Prevnar) [...] D LEVEL ONCE IN A LIFETIME-USE SMARTSET# [id number] Completed 12/12/2021, 11/30/2019, 04/08/2019, Additional history exists [...] this encounter Medical Devices Implanted Type Area Player Manager Device Identifier Shelf Expiration Date Model / Serial / Lot Mesh Pelvic Gynamesh Gpsl - [id number] [place] [facility] [place] Vagina ANDREW & ANDREW 08/17/2011 GPSL / / [id number] documented as of this encounter Visit Diagnoses Diagnosis ALS (amyotrophic lateral sclerosis) (HCC) Amyotrophic lateral sclerosis documented in this encounter Advance Directives Documents on File Type Date Recorded Patient School Psychometrist Expl anation Power of Chiropractor Assistant 10/07/2007 Latest Code Status on File Code Status Date Activated Date Inactivated Comments Full Code 11/23/2013 7:56 AM 11/23/2013 4:01 PM This or kinjal reflects the patients wishes and were consensually agreed upon. Code Status History Code Status Date Activated Date Inactivated Comments Full Code 11/23/2007 12:38 AM 11/25/2007 1:34 PM Full Code 11/22/2007 4:51 PM 11/23/2007 12:38 AM Care Teams Fatback Trimmer Relationship Specialty Start Date End Date Manish Roblero DO [address] [facility] [place] [address] PCP - General Family Medicine 09/14/19 documented as of this encounter
--- OUTSIDE RECORDS SUMMARY | 2024-01-14 21:40 | External Medical Summary | Summary of Care ---
Author Name Unknown Organization [facility] Address [address] [place] [address] Phone [phone] Care Team Providers Care Cutter And Edge Trimmer Name Role Phone Raquel Roblero DO Primary Care Provider Reason for Visit * Reason Comments eRx-Medication Refill Encounter Details Date Type Department Care Team (Late st Contact Info) Description 08/30/2023 Refill Family Practice [facility] [address] [facility] [address] Raquel Roblero DO [address] [facility] [place] [address] Adjustment disorder with depressed mood Allergies Active [...] as of this encounter (statuses as of 08/31/2023) Medications Medication Sig Dispensed Refills Start Date [...] AT BEDTIME 90 Tablet 1 08/31/2023 Active Mirtazapine 30 MG Oral Tablet (Remeron)Indicati ons:Adjustment disorder with depressed mood Take 1 Tablet (30 mg) by mouth at bedtime. 90 Tablet 5 06/23/2022 Discontinued documented as of this encounter (statuses as of 08/31/2023) Active Problems Problem Noted Date Diagnosed Date [...] as of this encounter (statuses as of 08/31/2023) Resolved Problems Problem Noted Date Diagnosed Date [...] as of this encounter (statuses as of 08/31/2023) Immunizations Name Administration Dates Next Due COVID-19 mRNA, LNP-s, No Pre serve, 2-Dose Series (Voalte) 05/24/2021,11/03/2020,10/13/2020 Pneumococcal Conjugate Vacc, 13 Valent (Prevnar) [...] encounter Miscellaneous Notes * Telephone Encounter - Arnol Recinos RPh - 08/31/2023 3:24 PM ESTSigned Prescriptions: Disp Refills Mirtazapine 30 MG Oral Tablet (Remeron) 90 Tab*1 Sig: TAKE ONE TABLET BY MOUTH AT BEDTIMEAuthorizing Provider: RAQUEL ROBLERO User: ARNOL RECINOS---- documented in this encounter Plan of Treatment [...] D LEVEL ONCE IN A LIFETIME-USE SMARTSET# [id number] Completed 12/12/2021, 11/30/2019, 04/08/2019, Additional history exists [...] this encounter Medical Devices Implanted Type Area Wearing Apparel Presser Device Identifier Shelf Expiration Date Model / Serial / Lot Mesh Pelvic Gynamesh Gpsl - [id number] Implanted:Qty: 1 on 11/22/2007 at [place] [facility] [place] N/A: Vagina ANDREW & ANDREW 08/17/2011 GPSL / / [id number] documented as of this encounter Visit Diagnoses Diagnosis Adjustment disorder with depressed mood documented in this encounter Advance Directives Documents on File Type Date Recorded Patient Opal Miner Expl anation Power of Six Color Press Operator 10/07/2007 Latest Code Status on File Code Status Date Activated Date Inactivated Comments Full Code 11/23/2013 7:56 AM 11/23/2013 4:01 PM This or kinjal reflects the patients wishes and were consensually agreed upon. Code Status History Code Status Date Activated Date Inactivated Comments Full Code 11/23/2007 12:38 AM 11/25/2007 1:34 PM Full Code 11/22/2007 4:51 PM 11/23/2007 12:38 AM Care Teams Cutter And Edge Trimmer Relationship Specialty Start Date End Date Raquel Roblero DO [address] [place] [address] PCP - General Family Medicine 09/14/19 documented as of this encounter
--- OUTSIDE RECORDS SUMMARY | 2024-01-14 21:40 | External Medical Summary | Continuity of Care Document ---
Author Name Unknown Organization [facility] Address [address] [place] [address] AKSHAT VILLA [id number] Care Team Providers Care Needleworker Name Role Phone Manish Roblero Primary Care Physician [phone] Encounter [facility] KARENR [id number] Date(s): 08/06/23 - 08/06/23 [facility] [address] [facility] [id number], [place] [id number]- [phone] Encounter Diagnosis Amyotrophic lateral sclerosis(Discharge Diagnosis) - 08/06/23 Chronic pain(Discharge Diagnosis) - 08/06/23 Dysphagia(Discharge Diagnosis) - 08/06/23 Depression with anxiety(Discharge Diagnosis) - 08/06/23 Goals of care, counseling/discussion(Discharge Diagnosis) - 08/06/23 Palliative care encounter(Discharge Diagnosis) - 08/06/23 Discharge Disposition: Home or Self Care Attending Physician: MD Ferguson Kristina B Referring Physician: MD Ferguson Kristina B Allergies, Adverse Reactions, Alerts Substance Reaction Severity Status codeine itchy nausea Active Persantine unknown Active IVP dye welts rash Active Percocet 5/325 1 nausea Active fenoprofen unknown Active tetracycline rash Active chlorhexidine topical rash Active shellfish welt rash Active Carbocaine unknown Active Morphine Sulfate 2 nausea Active Mepivacaine Hydrochloride unknown Ac tive 1upset stomach 2upset stomach Assessment and Plan Extracted from: Title:Telehalth Visit Note Author:MD Ferguson K ristina B Date:08/06/23 1.Amyotrophic lateral scle rosis 88 year old female with history of Paroxysmal atrial fibrillation, HTN, HLD, CVA, 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 It is consistent with her goals and medical condition to continue ALS medications at this time. Would support permanent stopping of tube feedings if patient confirms this desire. Hospice will be indicated if she starts to lose weight and does not want to restart TF. 2.Chronic pain Aching and neuropathic pain in BLE that has worsened at night - Continue acetaminophen 480mg via G Tube po bid and as needed for pain - Continue gabapentinvia 250mg/5mL oral solution, titrate to 250mg (5mL)bid and 400mg qhs(8mL). - Continue naproxen 125mg/5ml oral solution 125mg (5mL) tid- do not titrate unti renal function checked - Send lab order to [facility] lab to check renal function to guide analgesic dosing. - Consider opioid analgesia if pain not improved, noting prior opioid induced nausea 3.Dysphagia Expect progression of dysphagia over time. Continue medications via tube. Validated patient's thought that she may never restart TF due to discomfort and desire to allow natural . 4.Depression with anxiety Mood stable, has difficulty seeing the positive in things. Goal is to manage symptoms well enough to ensure participation and enjoyment in daily activities while minimizing side effects.Recommend continue: - Sertraline 100mg daily - Mirtazapine 30mg qhs - Encourage engagement in family activities/meaning-bringing activities 5.Goals of care, counseling/discussion Desires limited interventions including no mechanical ventilation or tracheostomy and no resuscitation. (POLST reflects this) Feels strongly about dying in her home which family aims to support. Accepts hospice when prognosis is less than 6 months and symptoms/care needs warrant(not now)- if starts losing weight and is not starting TF again, hospice would be indicated. 6.Palliative care encounter Will follow-up [id number] weeks or sooner if needed Provided our nurse phone number, hst use when needs arise Today's scheduled clinic visit was scheduled as an audio-visualvisit via [facility]. The patient and/or surrogate provided [...] a prior visit in past 7 days. eLxie Ferguson MD FAAHPM, [facility] Palliative Care, [address] [address] [email or web address] diclofenac 1% topical gel Start: 03/05/22 9:31:00 EDT, 1 appl, topical, qid, Disp# 400 g, Refills: 5, Apply up to 4 grams QIDPRN for right hip pain, PRN: Pain, Pharmacy: [id number] Start Date: 03/05/22 Stop Date: 09/01/22 Status: Ordered gabapentin 250 mg/5 mL oral solution Start: 08/06/23 11:43:00 EST, See Instructions, Disp# 540 mL, Refills: 3, 6 mL bid and 8mL qhs po or GT, Pharmacy: [id number] Start Date: 08/06/23 Status: Ordered glycopyrrolate 1 [...] tid, Disp# 450 mL, Refills: 5, Pharmacy: [id number] Start Date: 02/11/23 Stop Date: 08/10/23 Status: Ordered ondansetron 4 mg oral tablet, disintegrating Start: 04/28/23 10:29:00 EDT, See Instructions, Disp# 60 tab, Refills: 3, allow 1 tablet to dissolve on tongue daily before tube feeding and every 6 hours as needed, PRN: as needed for nausea/vomiting, Pharmacy: [facility] Start Date: 04/28/23 Status: Ordered pantoprazole Start: 10/22/17 10:41:00, 40 mg =, PO, Daily Start Date: 10/22/17 Status: Ordered Probiotic Formula Start: 10/22/17 10:42:00, 1 cap, PO, Daily Start Date: 10/22/17 Status: Ordered Radicava ORS 105 mg/5 mL oral suspension Start: 06/30/23 9:47:00 EST, 5 mL, PO, Daily, Disp# 50 mL, Refills: 12, DRUG FREE PERIODS., Brand Medically Necessary, Pharmacy: [email or web address] Start Date: 06/30/23 Status: Ordered riluzole Start: [...] Effective Dates Health Status Clinical Service Informant Amyotrophic lateral sclerosis Discharge Diagnosis 08/06/23 Dysphagia Discharge Diagnosis 08/06/23 Depression with anxiety Discharge Diagnosis 08/06/23 Goals of care, counseling/discuss ion Discharge Diagnosis 08/06/23 Chronic pain Discharge Diagnosis 08/06/23 Palliative care encounter Discharge Diagnosis 08/06/23 Procedures Procedure Date Related Diagnosis Body Site Status Barium swallow 1 10/30/17 Complete d X-ray of left foot 2 05/21/16 Comp leted Hip replacement 2014 Completed throat stretched operation planned 2014 Completed Right elbow 3 07/10/14 Completed Endoscopy & throat stretchin mitul johnson 2013 Completed Right elbow debridement 10/21/12 C ompleted Injection 09/2009 Completed Abdominal wall/pelvic wall 11/2006 Completed Medtronic implant in hip 2002 Completed Neck surgery 1997 Completed Appendectomy 1972 Completed Hysterectomy 1972 Completed Back surgery 1970 Completed Tonsillectomy 4 Completed 11) Aspiration was observed and the examination was discontinued. 2) No esophageal abnormality was identified on the acquired images. [facility]: 1.Mild dorsal soft tissue swelling. No fractures 3OPERATIVE PROCEDURES: 1. Right total elbow arthroplasty with a tourniquet component, small. 2. Ulnar nerve transposition. 4during childhood Social History Social History Type Response Smoking Status Former Smoker, quit > 1 yr Sex Female Palliative care Outpatient Note * MD Phyllis, Lexie Barlow: PERFORM Event Display: Palliative Care Outpt Note Authored Date: Chief Complaint COping with ALS History of Present Illness 88 [...] visit,chart reviewed.Reviewed multi-disciplinary ALS clinic visit note in [place] since last visit. Since our last visit, she stopped her tube feeding in June due to discomfort. Issues discussed include: Nutrition-has stopped tube feeds due to discomfort ever since last June. Has maintained weight with oral nutrition at 114lbs. - She is not sure she will be willing to restart TF if/when she starts losing weight again or had more dysphagia. Validated that she has a choice when the time comes. - difficulty swallowing pills or solids. - In spring 2022, reported considering stopping her tube feeding, mostly because she feels she is aburden to her family. On further discussion, agreed to continue TF at this time. Dysphagia: persistent, multifactorial from Schatzki's ring and ALS - +PIll dysphagia, meds put through tube via liquid or crushed. - difficulty swallowing with aspiration pneumonia in fall 2021. Takes pills via tube. - see above re stopping feeding Pain- Worst in BLE. Throbbing and electric, well controlled during the day but worsening at nighttime. - They ache most of the time, some days are far worse and including shooting pains that extend into her feet. CUrrently taking: - Gabapentin 250mg (5mL)potid oral solution- had nightmares/hallucinations in the past, tolerating lately, now attributes hallucinations to her ALs drug which was stopped - Naproxen 125mg (5mL)tid via oral soluttion- she feels this is most helpful and would like to titrate it but has not had renal function checked since being on it regularly - Acetaminophen as needed- has not used much recently because the pills she has are so large Past analgesia- vicodin 2020 GERD: stable Currently taking: - Famotidine - Pantoprazole Secretions- stable on current regimen Currently taking: -Scopolamine, glycopyrrolate Fatigue- Stable, remains frustrating to her to lack energy. Has to chunk her activities into short episodes to tolerate. Does all ADLs herself, does light cleaning and meal prep, laundry. - Frustrated by her functional limitations. - No longer driving Mood- currently well managed/stable. Current management: - Sertraline 100mg daily - Mirtazapine 30mg qhs Cognition- noting some memory impairments that are progressing. Hospice introduction: (ON prior visit) At patient's invitation, discussed when hospice mightbe appropriate for her: namely, when she has increasing weakness such that she is no longer ambulatory, when she starts to experience more difficulty with breathing or other symptoms that cause distress. OR if she decides her quality of life is one that she does not want to continue and desiresto stop tube feeding and/or ALS medications. She [...] resuscitated or intubated or have tracheostomy placed. Was Okwith tube feeding as long as tolerated and accepts hospitalization for a correctable issue, considering not restarting it in the future due to discomfort and her desire to allow natural to come and take her. Information preferences:Accepts straightforward information about condition and prognosis. PDMP: Reviewed and considered with regard to ongoing management. Code Status:Limited Support: DNR/DNI Advance Directive Documents:In EMR:[place] Orders Life-Sustaining Tx: [place] Orders Life-Sustaining Tx (07/21/22): DNR/Comfort measures/+trial antibtiocs/Ok tube feeding Patients decision making capacity:Intact Surrogate decision maker:SonLebron. Prognosis:Could be less than one year, will depend on response to ALS treatments aimed at slowing progression. Functional Status:Independent for ADLs and small jobs, uses walker/cane or transport wheelchairfor distances. Has fallen in the past. Needs assistance for ambulation outside of the house. Social History:, [facility]. Son Lebron and IRINEO Walter actively involved and checking on her daily. Neighbors also checking in regularly. Has a renter living in basement who helps her if/when she needs it. Had 6 children total, 1 from colon cancer. 3 adult children are close by, 1 lives in [place] and has 5 children and a with MS. Total of 18 GK, 16GGK. Enjoys going out to eat, playing cards with neighbors "[employer]" Equity: During previous medical encounters, have you ever felt you have been treated differently thanother patients for any reason?Not yet discussed Caregiver Needs / Support:Adequate support identified Her children plan to stay with her if/when she needs more care as she intends to stay at home. She worries about being a burden to them butthey report unfaltering support to her. Spirituality:Strong restoration moira that gives her comfort that God is in control. She feels God will know when it is time for her to go. Anticipatory grief/Loss history:Daughter of colon cancer after withholding the news about it from her family until her final 3 weeks of life. - with hospice at home in 2014 from cancer of the liver. Involved Clinicians:Thang Bhatti PCP:DO ROBLERO TREVOR S ([facility]) [phone] (FAX BUSINESS) Review of Systems Review of systems positive for those listedabove, all others asked anddetermined to be negative Physical Exam Exam via telemedicine: General: Awake, alert and oriented, sitting upright on couch, Hard of hearing. Speaks slowly but appropirately Psych: Appropriate affect HEENT: Normocephalic, PERRL, external [...] life prolonging interventions as her disease progresses. It is consistent with her goals and medical condition to continue ALS medications at this time. Would support permanent stopping of tube feedings if patient confirms this desire. Hospice will be indicated if she starts tolose weight and does not want to restart TF. 2.Chronic pain Aching and neuropathic pain in BLE that has worsened at night - Continue acetaminophen 480mg via G Tube po bid and as needed for pain - Continue gabapentinvia 250mg/5mL oral solution, titrate to 250mg (5mL)bid and 400mg qhs(8mL). - Continue naproxen 125mg/5ml oral solution 125mg (5mL) tid- do not titrate unti renal function checked - Send lab order to [facility] lab to check renal function to guide analgesic dosing. - Consider opioid analgesia if pain not improved, noting prior opioid induced nausea 3.Dysphagia Expect progression of dysphagia over time. Continue medications via tube. Validated patient's thought that she may never restart TF due to discomfort and desire to allow natural . 4.Depression with anxiety Mood stable, has difficulty seeing the positive in things. Goal is to manage symptoms well enoughto ensure participation and enjoyment in daily activities while minimizing side effects.Recommendcontinue: - Sertraline 100mg daily - Mirtazapine 30mg qhs - Encourage engagement in family activities/meaning-bringing activities 5.Goals of care, counseling/discussion Desires limited interventions including no mechanical ventilation or tracheostomy and no resuscitation. (POL reflects this) Feels strongly about dying in her home which family aims to support. Accepts hospice when prognosis is less than 6 months and symptoms/care needs warrant(not now)- if starts losing weight and is not starting TF again, hospice would be indicated. 6.Palliative care encounter Will follow-up [id number] weeks or sooner if needed Provided our nurse phone number,[phone] use when needs arise Today's scheduled clinic visit was scheduled as an audio-visualvisit via [facility]. The patient and/or surrogate provided [...] in past 7 days. Lexie Ferguson MD FAAM, [place] Palliative Care, [address] [address] [email or web address] Problem List/Past Medical History Ongoing Acute urinary retention Amyotrophic lateral sclerosis Anxiety Arthritis of elbow Bilateral hearing loss Chronic pain CMC arthritis DEPRESSION Depression with anxiety Dysarthria Dysphagia Elbow pain Excessive oral secretions Goals of care, counseling/discussion Hepatitis High risk [...] Ulnar neuropathy Weight disorder Procedure/Surgical History Barium swallow (10/30/2017)X-ray of left foot (05/21/2016)throat stretched operation planned (2014) Hip replacement (2014) Right elbow (07/10/2014) Endoscopy & throat stretching, multiple (2013)Right elbow debridement (10/21/2012)Injection (09/2009)Abdominal wall/pelvic wall (11/2006)Medtronic implant in hip (2002)Neck surgery (1997)Hysterectomy (1972)Appendectomy (1972)Back surgery (1970)Tonsillectomy Medications azaTHIOprine(Imuran 50 mg oral tablet), 50 mg= 1 tab, PO, Daily bifidobacterium-lactobacillus(Probiotic Formula), 1 cap, PO, Daily cholecalciferol(Vitamin D3), 50 mcg, PO, Daily cyanocobalamin(Vitamin B12), 1000 mcg, PO, Daily diclofenac topical(diclofenac 1% topical gel), 1 appl, topical, qid, PRN, 5 refills edaravone(Radicava ORS 105 mg/5 mL oral suspension), 5 mL, PO, Daily gabapentin(gabapentin 250 mg/5 mL oral solution), 300 mg= 6 mL, PO, qhs, 3 refills glycopyrrolate(glycopyrrolate 1 mg oral tablet), 1 mg= 1 tab, PO, qAM mirtazapine(mirtazapine 15 mg oral tablet), 15 mg= 1 tab, PO, qhs naproxen(naproxen 125 mg/5 mL oral suspension), 125 mg= 5 mL, PO, tid, 5 refills ondansetron(ondansetron 4 mg oral tablet, disintegrating), [...] the next year) OverDue Adult Influenza Vaccine due02/14/23and every 1year Due Body Mass Index due07/22/23and every 366day Adult COVID-19 Vaccination due08/06/23Unknown Frequency Adult Social Determinants of Health Screening due08/06/23Unknown Frequency Adult Tdap/Td Vaccine due08/06/23Unknown Frequency Lipid Screening due08/06/23Unknown Frequency Medicare Annual Wellness Visit due08/06/23and every 1year Pneumococcal Vaccine Older Adults due08/06/23One-time only Shingles Vaccine due08/06/23One-time only Satisfied(in the past 1 year) There are no satisfied recommendations within the defined date range Lab Results Test Name Test Result Date/Time Na 140 mmol/L 03/14/2022 04:28 EDT K 3.5 mmol/L 03/14/2022 04:28 EDT Cl- 107 mmol/L 03/14/2022 04:28 EDT HCO3 25 mmol/L 03/14/2022 04:28 EDT Anion Gap 8 mmol/L 03/14/2022 04:28 EDT BUN 20 mg/dL 03/14/2022 04:28 EDT Cret 0.67 mg/dL 03/14/2022 04:28 EDT Estimated CrCl 46.32 mL/min 03/14/2022 05:06 EDT eGFR CKD-EPI 84 mL/min/1.73 m2 03/14/2022 04:28 EDT Glu 93 mg/dL 03/14/2022 04:28 EDT Ca 8.3 mg/dL 03/14/2022 04:28 EDT Mg 1.9 mg/dL 03/14/2022 04:28 EDT PO4 2.9 mg/dL 03/14/2022 04:28 EDT WBC 6.85 K/uL 07/21/2022 13:53 EST WBC 9.05 K/uL 03/14/2022 04:28 EDT Hgb 11.3 g/dL 07/21/2022 13:53 EST Hgb 9.1 g/dL 03/14/2022 04:28 EDT Hct 35.3 % 07/21/2022 13:53 EST Hct 28.3 % 03/14/2022 04:28 EDT RBC 3.59 M/uL 07/21/2022 13:53 EST RBC 2.87 M/uL 03/14/2022 04:28 EDT MCV 98.3 fL 07/21/2022 13:53 EST MCV 98.6 fL 03/14/2022 04:28 EDT MCHC 32.0 g/dL 07/21/2022 13:53 EST MCHC 32.2 g/dL 03/14/2022 04:28 EDT MCH 31.5 pg 07/21/2022 13:53 EST MCH 31.7 pg 03/14/2022 04:28 EDT RDW 15.3 % 07/21/2022 13:53 EST RDW 15.9 % 03/14/2022 04:28 EDT Plts 262 K/uL 07/21/2022 13:53 EST Plts 181 K/uL 03/14/2022 04:28 EDT MPV 10.1 fL 07/21/2022 13:53 EST MPV 10.2 fL 03/14/2022 04:28 EDT Type of Diff: AUTO 03/14/2022 04:28 EDT Immature Gran% 0.4 % 03/14/2022 04:28 EDT Neut% 85.6 % 03/14/2022 04:28 EDT Lymph% 7.1 % 03/14/2022 04:28 EDT Knott% 4.9 % 03/14/2022 04:28 EDT Baso% 0.2 % 03/14/2022 04:28 EDT Eos% 1.8 % 03/14/2022 04:28 EDT Immat Gran, Abs 0.04 K/uL 03/14/2022 04:28 EDT Neut, Abs 7.75 K/uL 03/14/2022 04:28 EDT Lymph, Abs 0.64 K/uL 03/14/2022 04:28 EDT Knott, Abs 0.44 K/uL 03/14/2022 04:28 EDT Baso, Abs 0.02 K/uL 03/14/2022 04:28 EDT Eos, Abs 0.16 K/uL 03/14/2022 04:28 EDT ALT 8 unit/L 07/21/2022 13:53 EST T Bili 0.3 mg/dL 07/21/2022 13:53 EST D Bili <0.2 mg/dL 07/21/2022 13:53 EST Alk Phos 87 unit/L 07/21/2022 13:53 EST AST 22 unit/L 07/21/2022 13:53 EST Alb 4.4 g/dL 07/21/2022 13:53 EST Alb 3.3 g/dL 03/14/2022 04:28 EDT Prot 8.1 g/dL 07/21/2022 13:53 EST Electronic Signature on File CC: Manish Roblero DO [facility] [address] [facility] [id number] * CC: Emile Bhatti MD [address] [place] [address] [address] [facility] [id number] Electronically Reviewed/Signed by: Lexie Ferguson MD, FAAM Author Signature Dt/Tm:1:43 AM Chief, Palliative Care [facility] surgical instruments inspector, [facility] Hospital Office: [phone] KBN Patient Care team information Care Team Personnel Name: TOM Christiansen, Doreen Position: Physician Asst Exmpt - Orthopaedic Surg Member Role: Lifetime Relationship Address: Address: [address] [place] [address] [address] [place] [address] [place] Name: MD Phyllis, Lexie Barlow Position: Physician - Palliative Care Member Role: Lifetime Relationship Address: Address: [address] [place] [address] [place] Name: TOM Grace, Ari Daly Position: Physician Service Dismantler - Sports Medicine [place] Member Role: Lifetime Relationship Address: Address: [address] [address] [place] Name: DO Roblero Trevor S Position: Referring DIRECT Member Role: Primary Care Provider Address: Address: [facility] [address] [place] [address] Care Team Related Persons Name: LEBRON BRYAN Address: home [address] [place] [address] AKSHAT MCKEON [id number] Name: LEBRON BRYAN Address: home [address] [facility] [place] [address]
--- OUTSIDE RECORDS SUMMARY | 2024-01-14 21:40 | External Medical Summary | Continuity of Care Document ---
Author Name Unknown Organization [place] [address] [address] Address [address] [facility] [address] [place] [id number] Care Team Providers Care Cast Iron Drain Pipe Layer Name Role Phone Manish Roblero Primary Care Physician [phone] [phone] Date(s): 09/29/23 - 09/29/23 [place] [address] [address] [facility] [address] [facility], [address], Entrance [address] [place] [address] [phone] Encounter Diagnosis Musculoskeletal pain(Discharge Diagnosis) - 09/29/23 Dysphagia, oropharyngeal(Discharge Diagnosis) - 09/29/23 Amyotrophic lateral sclerosis(Discharge Diagnosis) - 09/29/23 Sialorrhea(Discharge Diagnosis) - 09/29/23 Long-term use of high-risk medication(Discharge Diagnosis) - 09/29/23 Discharge Disposition: Home or Self Care Attending Physician: [facility] Referring Physician: DO Roblero Trevor S Allergies, Adverse Reactions, Alerts Substance Reaction Severity Status codeine itchy nausea Active chlorhexidine topical rash Active Persantine unknown Active Percocet 5/325 1 nausea Active fenoprofen unknown Active tetracycline rash Active shellfish welt rash Active IVP dye welts rash Active Carbocaine unknown Active Morphine Sulfate 2 nausea Active Mepivacaine Hydrochloride unknown Ac tive 1upset stomach 2upset stomach Medications baclofen 10 mg oral tablet Start: 09/29/23 14:01:00 EST, 0.5 tab, PO, bid Start Date: 09/29/23 Status: Ordered diclofenac 1% topical gel Start: 03/05/22 9:31:00 EDT, 1 appl, topical, qid, Disp# 400 g, Refills: 5, Apply up to 4 grams QIDPRN for right hip pain, PRN: Pain, Pharmacy: [id number] Start Date: 03/05/22 Stop Date: 09/01/22 Status: Ordered gabapentin 250 mg/5 mL oral solution Start: 08/06/23 11:43:00 EST, See Instructions, Disp# 540 mL, Refills: 3, 6 mL bid and 8mL qhs po or GT, Pharmacy: [facility] Start Date: 08/06/23 Status: Ordered glycopyrrolate 1 mg oral tablet Start: 09/29/23 13:58:00 EST, 1 tab, PEG-tube, tid, Disp# 270 tab, Refills: 3, Up to 1mg via PEG tube TID PRN secretions, Pharmacy: [facility] Start Date: 09/29/23 Stop Date: 09/23/24 [...] afternoon, 7 mL HS, 90 day, Pharmacy: [facility] Start Date: 09/29/23 Status: Ordered ondansetron 4 mg oral tablet, disintegrating Start: 04/28/23 10:29:00 EDT, See Instructions, Disp# 60 tab, Refills: 3, allow 1 tablet to dissolve on tongue daily before tube feeding and every 6 hours as needed, PRN: as needed for nausea/vomiting, Pharmacy: [facility] Start Date: 04/28/23 Status: Ordered pantoprazole [...] Effective Dates Health Status Clinical Service Informant Musculoskeletal pain Discharge Diagnosis 09/29/23 Non-Specified Dysphagia, oropharyngeal Discharge Diagnosis 09/29/23 Non-Specified Amyotrophic lateral sclerosis Discharge Diagnosis 09/29/23 Non-Specified Sialorrhea Discharge Diagnosis 09/29/23 Non-Specified Long-term use of high-risk medication Discharge Diagnosis 09/29/23 Non-Specified Procedures Procedure Date Related Diagnosis Body Site [...] abnormality [facility]: 1.Mild dorsal soft tissue swelling. [...] Member Role: Lifetime Relationship Address: Address: [address] [facility] [address] [place] [address] [place] Name: MD Ferguson Kristina B Position: Physician - Palliative Care Member Role: Lifetime Relationship Address: Address: [address] [place] [id number] [place] Name: TOM Grace Cory D Position: Physician Steward/Stewardess Lounge - Sports Medicine [place] Member Role: Lifetime Relationship Address: Address: [address] [facility] [address] [place] [address] [place] Name: DO Roblero Trevor S Position: Referring DIRECT Member Role: Primary Care Provider Address: Address: [facility] [address] [place] [address] Care Team Related Persons Name: LEBRON BRYAN Address: [address] [place] [phone] Name: LEBRON BRYAN Address: home [address] [facility] [place] [address]
--- OUTSIDE RECORDS SUMMARY | 2024-01-14 21:40 | External Medical Summary | Summary of Care ---
Author Name Unknown Organization [facility] Address [address] [place] [address] Phone [phone] Care Team Providers Care Rose Grading Supervisor Name Role Phone Manish Roblero DO Primary Care Provider Encounter Details Date Type Department Care Team (Late st Contact Info) Description 08/07/2023 Orders Only Laboratory, [facility] [address] [place] [id number] DrainLexie MD [address] [place] [address] [place] [address] ALS (amyotrophic lateral sclerosis) (FORMERLY [facility])* Allergies Active Allergy Reactions Criticality Noted Date [...] as of this encounter Plan of Treatment Scheduled Orders Name Type Priority Associated Diagnoses Orde r Schedule COMPREHENSIVE METABOLIC PANEL Lab Routine ALS (amyotrophic lateral sclerosis) (HCC) Expected: 08/08/2023, Expires: 08/07/2024 Health Maintenance Due Date Last Done Comments [...] D LEVEL ONCE IN A LIFETIME-USE SMARTSET# [id number] Completed 12/12/2021, 11/30/2019, 04/08/2019, Additional history exists [...] this encounter Medical Devices Implanted Type Area Linemarker Device Identifier Shelf Expiration Date Model / Serial / Lot Mesh Pelvic Gynamesh Gpsl - [id number] [place]:Q[place] 1 [place] 11/22/2007 [place] [facility] [place] [employer] 08/17/2011 GPSL / / [id number] documented as of this encounter Visit Diagnoses Diagnosis ALS (amyotrophic lateral sclerosis) (HCC)- Primary Amyotrophic lateral sclerosis documented in this encounter Advance Directives Documents on File Type Date Recorded Patient Coating Machine Feeder Expl anation Power of Crm Solution Architect 10/07/2007 Latest Code Status on File Code Status Date Activated Date Inactivated Comments Full Code 11/23/2013 7:56 AM 11/23/2013 4:01 PM This or kinjal reflects the patients wishes and were consensually agreed upon. Code Status History Code Status Date Activated Date Inactivated Comments Full Code 11/23/2007 12:38 AM 11/25/2007 1:34 PM Full Code 11/22/2007 4:51 PM 11/23/2007 12:38 AM Care Teams Rose Grading Supervisor Relationship Specialty Start Date End Date Manish Roblero DO [address] [facility] [place] [address] PCP - General Family Medicine 09/14/19 documented as of this encounter
--- OUTSIDE RECORDS SUMMARY | 2024-01-14 21:41 | External Medical Summary ---
Author Name UNSPECIFIED Address Unknown Organization [facility] History of Encounters Reason for Assessment: Recertification [...]
[2024-01-14] MEDS: MELATONIN 3 MG TAB PO PRN (22:48)
[2024-01-15] MEDS: LEVALBUTEROL 1.25 MG/3 ML NEB NEB SCH (01:02)
[2024-01-15] MEDS: GLYCOPYRROLATE 1 MG TAB PO PRN (08:28)
--- NOTE | 2024-01-15 09:09 | Palliative Care Consultation ---
Date of Consultation January 15, 2024 Assessment & Plan (1) Dyspnea and respiratory abnormalities: (2) Aspiration into airway: (3) Sialorrhea: (4) ALS (amyotrophic lateral sclerosis): (5) Advanced care planning/counseling discussion: Face to face ACP with pt at bedside for 60min She would like home hospice hospice explained in detail she has no agency preference she has been talking about this with her children and all are supportive she does not want placement or SNF, but understands at the near end of life this may be needed if family cannot manage she had questions about ALS end of life which we discussed (6) Palliative care by specialist: (7) Weakness generalized: Plan ACP as above desires home with hospice when stable primary team notified Thank you for allowing us to participate in the ongoing care of this patient. Please don't hesitate to call or page with any additional concerns. Dr. Nara Desir DNP Director, Palliative Care History of Present Illness Reason for Consultation: Goals of care, possible transition to Hospice Serv Attending Physician: Gary Camarillo MD History of Present Illness Tay is an 88yo female with ALS, esophageal reflux, schisis ring, presenting with cough and shortness of breath - admitted for likely aspiration pneumonitis with hypoxia. She normally eats by mouth, uses PEG tube only for medication administration per primary team: "She also declines PEG tube feeding at this time She would like to speak with palliative care service for possible transition into hospice service" Imaging: CT chest: 1. Dependent consolidations bilaterally may represent combination of atelectasis and pneumonia. 2. Bronchial wall thickening is concerning for bronchitis. CT head: No acute process Tay is seen bedside, no family present she has a moderate bronchitic cough She states her ALS has been progressive for about 3 years she wants to stay home and has been having discussions with her sons x4, 3 of whom live local and one in [place] She states she is "julian to have 4 sons and they come with 4 wives who are like my daughters." Allergies Allergy/AdvReac Type Severity Reaction Status Date / Time chlorhexidine Allergy Intermediate RASH Verified 04/21/23 22:38 codeine Allergy Intermediate ITCHING/VIVIAN Verified 04/21/23 22:38 SEA Corticosteroids Allergy Intermediate STERIOD Verified 04/21/23 22:38 (Glucocorticoids) INJECTIONS - FLUSHING AND BLOTCHING REDNESS, ITCHY morphine Allergy Intermediate ITCHY HIVES Verified 04/21/23 22:38 oxycodone Allergy Intermediate PERCOCET-ITCHING Verified 04/21/23 22:38 OF ARMS,SHOULDERS,GROGGY/GI UPSET shellfish derived Allergy Intermediate Rash Verified 04/21/23 22:38 Tetracyclines Allergy Intermediate Rash Verified 04/21/23 22:38 dipyridamole Allergy Unknown reaction Verified 04/21/23 22:38 unknown fenoprofen Allergy Unknown UNKNOWN Verified 04/21/23 22:38 PER [facility] MED LIST duloxetine AdvReac Severe SEDATION & Verified 04/21/23 22:38 BAD DREAMS mepivacaine AdvReac Unknown pt states Verified 04/21/23 22:38 "just didnt work" Home Medications Medication Instructions Recorded Confirmed Type mirtazapine 30 mg tablet 30 mg feeding tube HS 06/24/22 01/14/24 History riluzole 50 mg tablet 50 mg feeding tube BID 06/24/22 01/14/24 History Tube Feeding Water Flush #1 ea 06/30/22 Rx acetaminophen 500 mg tablet 1,000 mg feeding tube Q8H PRN Pain 04/21/23 01/14/24 History (Acetaminophen Extra Strength) azathioprine 50 mg tablet (Imuran) 50 mg feeding tube QAM 04/21/23 01/14/24 History baclofen 10 mg tablet 10 mg feeding tube BID 04/21/23 01/14/24 History cholecalciferol (vitamin D3) 50 50 mcg feeding tube DAILY 04/21/23 01/14/24 History mcg (2,000 unit) tablet (Vitamin D3) cyanocobalamin (vitamin B-12) 1,000 mcg feeding tube QAM 04/21/23 01/14/24 History 1,000 mcg tablet (Vitamin B-12) edaravone 105 mg/5 mL oral 0 mg feeding tube DIRECTED 04/21/23 01/14/24 History suspension (Radicava ORS) glycopyrrolate 1 mg tablet 1 mg feeding tube TID PRN 04/21/23 01/14/24 History Congestion naproxen 125 mg/5 mL oral 500 mg feeding tube BID 04/21/23 01/14/24 History suspension pantoprazole 40 mg tablet,delayed 40 mg PO QAM 04/21/23 01/14/24 History release potassium citrate 99 mg capsule 99 mg PO DAILY 04/21/23 01/14/24 History sertraline 100 mg tablet 100 mg feeding tube DAILY 04/21/23 01/14/24 History sodium phenylbutyrate 3 1 packet feeding tube DAILY 04/21/23 01/14/24 History gram-taurursodiol 1 gram oral powder packet (Relyvrio) hydrocodone 7.5 mg-acetaminophen 5 ml PO Q6H PRN pain #118 mL 04/22/23 01/14/24 Rx 325 mg/15 mL oral solution gabapentin 250 mg/5 mL oral 250 mg feeding tube BID 01/14/24 01/14/24 History solution Patient History Medical History ALS (amyotrophic lateral sclerosis) Anemia CHRONIC Anxiety Autoimmune hepatitis "MEDICATION INDUCED"= ON IMURAN Depression Encounter for pre-operative examination Gastrostomy tube in place GERD (gastroesophageal reflux disease) Hiatal hernia Hip pain PT REPORTS STIMULATOR HAS BEEN REMOVED History of anesthesia reaction difficulty waking History of esophageal dilatation 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 DATE OF DX - LONG TIME AGO PER PT ; PT UNSURE DETAILS - NO BLOOD THINNER Stroke 2011; RESIDUAL BALANCE/HEARING ISSUES; PARTIAL EPIGLOTTIS "PARALYSIS" SVT (supraventricular tachycardia) PT UNSURE Valvular heart disease MILD MR/MODERATE TR PT UNSURE Surgical History Fusion of spine LUMBAR X2 H/O elbow replacement RIGHT H/O neck surgery "plate in back of my neck"--normal ROM moving neck front and back History of appendectomy History of cataract surgery BILATERAL History of cholecystectomy History of colonoscopy History of esophagogastroduodenoscopy (EGD) most recent 03/22/21 [place] History of hysterectomy CARRI WITH BSO History of surgery 07/2018--removal of spinal cord stimulator History of tonsillectomy and adenoidectomy History of total hip arthroplasty B/L Status post insertion of spinal cord stimulator HX Family History Mother Family history of diabetes mellitus Sister Family history of diabetes mellitus Daughter Cancer COLON/LYMPHOMA Other No family history of adverse response to anesthesia Social History Smoking Status: Former smoker Tobacco Type: Cigarettes Second Hand Exposure: No; Do You Dip or Chew Tobacco: No; Tobacco Cessation Education Requested by Patient: No Hx Alcohol Use: Yes Alcohol type: wine Hx Substance Use: No Preferred Language: Gibraltarian Communication Ability: Effective Racing Car Driver Required: No Beliefs That Will Affect Care: Bahai Bahai Beliefs: Protestant marital status: / Current Living Situation: Alone Current Living Situation Comment: home alone, has home health nursing once/wk Other Information That Helps Us Care for You: No Feels Safe at Home: Yes Safety Concerns: Feels Safe At This Time Assistive Devices: Cane, Oxygen - at Night and Walker Review of Systems Review of Systems: All systems reviewed & are unremarkable except as noted in Subjective Physical Exam Constitutional: + cachectic, + physical limitations, + f rail appearing and cooperative Eyes: PERRL, conjunctivae normal, anicteric sclerae Neck: normal visual inspection and trachea midline Respiratory: + respiratory distress, + labored breath ing, + uses accessory muscles, + cough (bronchitic) and symmetric chest movement; + not able to speak in complete sentence and no pursed lip breathing Cardiovascular: Rate/Rhythm: + tachycardic Extremities: normal capillary refill Gastrointestinal (Abdomen): Inspection/Auscultation: + scaphoid (PEG on right) Musculoskeletal: gen weakness Skin: pale, warm Neurologic: AAOx3 Results & Data Vital Signs (Past 12 Hours) Vital Signs Temp Pulse Resp BP Pulse Ox O2 Del Method O2 Flow Rate 01/15/24 07:55 36.2 C L 73 18 146/73 H 97 Nasal Cannula 01/15/24 07:09 65 18 94 Nasal Cannula 2 01/15/24 01:02 68 16 96 Nasal Cannula 2 Laboratory Results 01/14/24 01/14/24 01/14/24 Range/Units Unknown 07:53 05:34 WBC 12.84 H (4.8-10.8) K/ul RBC 3.20 L (4.20-5.40) M/uL Hgb 10.0 L (12.0-16.0) g/dl Hct 31.0 L (37.0-47.0) % MCV 96.9 (80.0-100.0) fL MCH 31.3 (25.0-34.0) pg MCHC 32.3 (32.0-36.0) g/dL RDW Std Deviation 56.7 H (36.4-46.3) fL RDW Coeff of Gale 15.9 H (11.5-14.5) % Plt Count 187 (130-400) K/uL MPV 10.7 (9.4-12.4) fL Immature Gran % (Auto) 0.5 % Neut % (Auto) 82.3 % Lymph % (Auto) 7.6 % [place] % (Auto) 7.2 % Eos % (Auto) 1.9 % Baso % (Auto) 0.5 % Neut # (Auto) 10.58 H (1.40-6.50) K/uL Lymph # (Auto) 0.97 L (1.20-3.40) K/uL [place] # (Auto) 0.92 H (0.11-0.59) K/uL Eos # (Auto) 0.25 (0.00-0.50) K/uL Baso # (Auto) 0.06 (0.00-0.20) K/uL Immature Gran # (Auto) 0.06 (0.01-0.20) K/uL PT (9.0-12.0) Seconds INR (0.9-1.1) APTT (21-31) Seconds PTT Ratio Sodium 139 (136-145) mmol/L Potassium 4.3 (3.5-5.1) mmol/L Chloride 106 (98-107) mmol/L Carbon Dioxide 26 (21-32) mmol/L Anion Gap 7 (3-11) BUN 22 (6-23) mg/dl Creatinine 0.81 (0.6-1.2) mg/dl Est Cr Clr Drug Dosing 39.3 Est GFR ( Amer) 75.2 ml/min Est GFR (Non-Af Amer) 64.8 ml/min BUN/Creatinine Ratio 27.2 H (10-20) Glucose 97 (70-99(Fasting)) mg/dl POC Glucose 99 (70-99) mg/dl Lactate (0.4-2.0) mmol/L Calcium 8.7 (8.6-10.3) mg/dl Magnesium 1.9 (1.7-2.4) mg/dl Total Bilirubin (0.2-1.0) mg/dl AST (13-39) U/L ALT (7-52) U/L Alkaline Phosphatase (34-104) U/L Troponin I High Sens (0-14) pg/ml B-Natriuretic Peptide (0-100) pg/ml Total Protein (6.0-8.3) gm/dl Albumin (3.4-5.0) gm/dl Globulin (2.5-4.0) gm/dl Albumin/Globulin Ratio (0.9-2) Lipase (11-82) U/L Procalcitonin (0-0.5) ng/ml Urine Color Yellow Urine Appearance Clear (Clear) Urine pH 6.0 (4.5-7.5) Ur Specific [place] 1.022 (1.000-1.030) Urine Protein Trace H (Negative) Urine Glucose (UA) Trace H (Negative) Urine Ketones Trace H (Negative) Urine Blood Negative (Negative) Urine Nitrite Negative (Negative) Urine Bilirubin Negative (Negative) Urine Urobilinogen Negative (Negative) Ur Leukocyte Esterase 3+ H (Negative) Urine WBC (Auto) >50 H (0-5) /hpf Urine RBC (Auto) 6-10 H (0-2) /hpf U Hyaline Cast (Auto) 0-2 (0-2) /lpf U Epithel Cells (Auto) 0-2 (0-2) /hpf Urine Bacteria (Auto) None Seen (None Seen) Nasal Screen MRSA (PCR) (Negative) Adenovirus (PCR) (NotDetected) B. pertussis DNA (PCR) (NotDetected) B.parapertussis DNA PCR (NotDetected) C. pneumoniae DNA (PCR) (NotDetected) Coronavirus OC43 (PCR) (NotDetected) Coronavirus HKU1 (PCR) (NotDetected) Coronavirus 229E (PCR) (NotDetected) SARS-CoV-2 (PCR) (NotDetected) Coronavirus NL63 (PCR) (NotDetected) Human Metapneumovir PCR (NotDetected) Influenza Type A (PCR) (NotDetected) Influenza Type B (PCR) (NotDetected) Urine Legionella Ag Pending M. pneumoniae (PCR) (NotDetected) Parainfluenza 1 (PCR) (NotDetected) Parainfluenza 2 (PCR) (NotDetected) Parainfluenza 3 (PCR) (NotDetected) Parainfluenza 4 (PCR) (NotDetected) RSV (PCR) (NotDetected) Entero/Rhino (PCR) (NotDetected) 01/13/24 01/13/24 01/13/24 Range/Units 22:53 19:52 18:52 WBC (4.8-10.8) K/ul RBC (4.20-5.40) M/uL Hgb (12.0-16.0) g/dl Hct (37.0-47.0) % MCV (80.0-100.0) fL MCH (25.0-34.0) pg MCHC (32.0-36.0) g/dL RDW Std Deviation (36.4-46.3) fL RDW Coeff of Gale (11.5-14.5) % Plt Count (130-400) K/uL MPV (9.4-12.4) fL Immature Gran % (Auto) % Neut % (Auto) % Lymph % (Auto) % [place] % (Auto) % Eos % (Auto) % Baso % (Auto) % Neut # (Auto) (1.40-6.50) K/uL Lymph # (Auto) (1.20-3.40) K/uL [place] # (Auto) (0.11-0.59) K/uL Eos # (Auto) (0.00-0.50) K/uL Baso # (Auto) (0.00-0.20) K/uL Immature Gran # (Auto) (0.01-0.20) K/uL PT (9.0-12.0) Seconds INR (0.9-1.1) APTT (21-31) Seconds PTT Ratio Sodium (136-145) mmol/L Potassium (3.5-5.1) mmol/L Chloride (98-107) mmol/L Carbon Dioxide (21-32) mmol/L Anion Gap (3-11) BUN (6-23) mg/dl Creatinine (0.6-1.2) mg/dl Est Cr Clr Drug Dosing Est GFR ( Amer) ml/min Est GFR (Non-Af Amer) ml/min BUN/Creatinine Ratio (10-20) Glucose (70-99(Fasting)) mg/dl POC Glucose (70-99) mg/dl Lactate (0.4-2.0) mmol/L Calcium (8.6-10.3) mg/dl Magnesium (1.7-2.4) mg/dl Total Bilirubin (0.2-1.0) mg/dl AST (13-39) U/L ALT (7-52) U/L Alkaline Phosphatase (34-104) U/L Troponin I High Sens 72.1 H* 81.3 H* (0-14) pg/ml B-Natriuretic Peptide (0-100) pg/ml Total Protein (6.0-8.3) gm/dl Albumin (3.4-5.0) gm/dl Globulin (2.5-4.0) gm/dl Albumin/Globulin Ratio (0.9-2) Lipase (11-82) U/L Procalcitonin (0-0.5) ng/ml Urine Color Urine Appearance (Clear) Urine pH (4.5-7.5) Ur Specific [place] (1.000-1.030) Urine Protein (Negative) Urine Glucose (UA) (Negative) Urine Ketones (Negative) Urine Blood (Negative) Urine Nitrite (Negative) Urine Bilirubin (Negative) Urine Urobilinogen (Negative) Ur Leukocyte Esterase (Negative) Urine WBC (Auto) (0-5) /hpf Urine RBC (Auto) (0-2) /hpf U Hyaline Cast (Auto) (0-2) /lpf U Epithel Cells (Auto) (0-2) /hpf Urine Bacteria (Auto) (None Seen) Nasal Screen MRSA (PCR) Negative (Negative) Adenovirus (PCR) (NotDetected) B. pertussis DNA (PCR) (NotDetected) B.parapertussis DNA PCR (NotDetected) C. pneumoniae DNA (PCR) (NotDetected) Coronavirus OC43 (PCR) (NotDetected) Coronavirus HKU1 (PCR) (NotDetected) Coronavirus 229E (PCR) (NotDetected) SARS-CoV-2 (PCR) (NotDetected) Coronavirus NL63 (PCR) (NotDetected) Human Metapneumovir PCR (NotDetected) Influenza Type A (PCR) (NotDetected) Influenza Type B (PCR) (NotDetected) Urine Legionella Ag M. pneumoniae (PCR) (NotDetected) Parainfluenza 1 (PCR) (NotDetected) Parainfluenza 2 (PCR) (NotDetected) Parainfluenza 3 (PCR) (NotDetected) Parainfluenza 4 (PCR) (NotDetected) RSV (PCR) (NotDetected) Entero/Rhino (PCR) (NotDetected) 01/13/24 01/13/24 Range/Units 16:58 16:47 WBC 13.33 H (4.8-10.8) K/ul RBC 3.37 L (4.20-5.40) M/uL Hgb 10.6 L (12.0-16.0) g/dl Hct 32.5 L (37.0-47.0) % MCV 96.4 (80.0-100.0) fL MCH 31.5 (25.0-34.0) pg MCHC 32.6 (32.0-36.0) g/dL RDW Std Deviation 55.0 H (36.4-46.3) fL RDW Coeff of Gale 15.5 H (11.5-14.5) % Plt Count 234 (130-400) K/uL MPV 10.3 (9.4-12.4) fL Immature Gran % (Auto) 0.4 % Neut % (Auto) 90.9 % Lymph % (Auto) 3.3 % [place] % (Auto) 4.4 % Eos % (Auto) 0.8 % Baso % (Auto) 0.2 % Neut # (Auto) 12.14 H (1.40-6.50) K/uL Lymph # (Auto) 0.44 L (1.20-3.40) K/uL [place] # (Auto) 0.58 (0.11-0.59) K/uL Eos # (Auto) 0.10 (0.00-0.50) K/uL Baso # (Auto) 0.02 (0.00-0.20) K/uL Immature Gran # (Auto) 0.05 (0.01-0.20) K/uL PT 11.0 (9.0-12.0) Seconds INR 1.0 (0.9-1.1) APTT 23 (21-31) Seconds PTT Ratio 0.9 Sodium 139 (136-145) mmol/L Potassium 4.0 (3.5-5.1) mmol/L Chloride 103 (98-107) mmol/L Carbon Dioxide 29 (21-32) mmol/L Anion Gap 7 (3-11) BUN 20 (6-23) mg/dl Creatinine 0.80 (0.6-1.2) mg/dl Est Cr Clr Drug Dosing Not Reportable Est GFR ( Amer) 76.3 ml/min Est GFR (Non-Af Amer) 65.8 ml/min BUN/Creatinine Ratio 25.0 H (10-20) Glucose 98 (70-99(Fasting)) mg/dl POC Glucose (70-99) mg/dl Lactate 1.3 (0.4-2.0) mmol/L Calcium 9.5 (8.6-10.3) mg/dl Magnesium 1.8 (1.7-2.4) mg/dl Total Bilirubin 0.5 (0.2-1.0) mg/dl AST 24 (13-39) U/L ALT 5 L (7-52) U/L Alkaline Phosphatase 101 (34-104) U/L Troponin I High Sens 84.5 H* (0-14) pg/ml B-Natriuretic Peptide 282 H (0-100) pg/ml Total Protein 7.6 (6.0-8.3) gm/dl Albumin 4.0 (3.4-5.0) gm/dl Globulin 3.6 (2.5-4.0) gm/dl Albumin/Globulin Ratio 1.1 (0.9-2) Lipase 18 (11-82) U/L Procalcitonin 0.03 (0-0.5) ng/ml Urine Color Urine Appearance (Clear) Urine pH (4.5-7.5) Ur Specific [place] (1.000-1.030) Urine Protein (Negative) Urine Glucose (UA) (Negative) Urine Ketones (Negative) Urine Blood (Negative) Urine Nitrite (Negative) Urine Bilirubin (Negative) Urine Urobilinogen (Negative) Ur Leukocyte Esterase (Negative) Urine WBC (Auto) (0-5) /hpf Urine RBC (Auto) (0-2) /hpf U Hyaline Cast (Auto) (0-2) /lpf U Epithel Cells (Auto) (0-2) /hpf Urine Bacteria (Auto) (None Seen) Nasal Screen MRSA (PCR) (Negative) Adenovirus (PCR) Not Detected (NotDetected) B. pertussis DNA (PCR) Not Detected (NotDetected) B.parapertussis DNA PCR Not Detected (NotDetected) C. pneumoniae DNA (PCR) Not Detected (NotDetected) Coronavirus OC43 (PCR) Not Detected (NotDetected) Coronavirus HKU1 (PCR) Not Detected (NotDetected) Coronavirus 229E (PCR) Not Detected (NotDetected) SARS-CoV-2 (PCR) Not Detected (NotDetected) Coronavirus NL63 (PCR) Not Detected (NotDetected) Human Metapneumovir PCR Not Detected (NotDetected) Influenza Type A (PCR) Not Detected (NotDetected) Influenza Type B (PCR) Not Detected (NotDetected) Urine Legionella Ag M. pneumoniae (PCR) Not Detected (NotDetected) Parainfluenza 1 (PCR) Not Detected (NotDetected) Parainfluenza 2 (PCR) Not Detected (NotDetected) Parainfluenza 3 (PCR) Not Detected (NotDetected) Parainfluenza 4 (PCR) Not Detected (NotDetected) RSV (PCR) Not Detected (NotDetected) Entero/Rhino (PCR) Not Detected (NotDetected) Diagnostic Findings Chest X-Ray 01/13/24 16:32 SINGLE VIEW CHEST CLINICAL HISTORY: Atypical chest pain FINDINGS: An AP, portable, upright chest radiograph is compared to study dated 04/21/2023 and correlated with chest CT dated 10/29/2021.. The heart is enlarged noting atherosclerotic calcification of the thoracic ureter. The pulmonary vasculature is not congested. Chronic residual thickening is similar to previous. There is bibasilar scarring/atelectasis. No airspace consolidation or large pleural effusion is identified. No pneumothorax is seen. The skeletal structures are osteopenic. There is chronic deformity of the left humeral head. Fusion hardware is noted in the lower cervical spine. An intrathecal lead projects over the mid thoracic spine. IMPRESSION: Cardiomegaly with no active disease in the chest. ACT 112: Negative or not required by law. Electronically signed by: Trenton Bergman M.D. 01/13/2024 5:[address] 01/13/24 19:25 Exam(s): CT CHEST Without Contrast EXAM: CT Chest Without Intravenous Contrast CLINICAL HISTORY: Reason for exam: cough, hypoxia, r/o pneumonia. TECHNIQUE: Axial computed tomography images of the chest without intravenous contrast. CTDI is 7.73 mGy and DLP is 249.53 mGy-cm. Automated exposure control was utilized for the study. A dose lowering technique was utilized adhering to the principles of ALARA. COMPARISON: CT chest on 10/29/2021 FINDINGS: Lungs: Dependent consolidations bilaterally may represent combination of atelectasis and pneumonia. Bronchial wall thickening is concerning for bronchitis. Multiple areas of the lung apices. No mass. Pleural space: Unremarkable. No pneumothorax. No significant effusion. Heart: Coronary artery and aortic valve calcifications. No cardiomegaly. No significant pericardial effusion. Mediastinum: Nonspecific mildly prominent mediastinal lymph nodes. Small amount of fluid in the esophagus. Bones/joints: Elevation of the humeral heads is suggestive of chronic rotator cuff tears. Curvature of the spine. Degenerative changes of the spine. Mild anterolisthesis of T2 on T3. Anterior fusion changes of the cervical spine. No acute fracture. No dislocation. Soft tissues: Unremarkable. Vasculature: Atherosclerotic changes of the vasculature. Borderline ectasia of the ascending thoracic aorta measuring 3.9 cm in diameter. Lymph nodes: See above. Tubes, lines and devices: Epidural spinal stimulator noted. G-tube in place. IMPRESSION: 1. Dependent consolidations bilaterally may represent combination of atelectasis and pneumonia. 2. Bronchial wall thickening is concerning for bronchitis. Electronically signed by: Anselmo Duong M.D. 01/13/24 21:[address] 01/13/24 19:25 Exam(s): CT HEAD Without Contrast EXAM: CT Head Without Intravenous Contrast CLINICAL HISTORY: Reason for exam: dysphagia. TECHNIQUE: Axial computed tomography images of the head/brain without intravenous contrast. CTDI is 35.37 mGy and DLP is 546.36 mGy-cm. Automated exposure control was utilized for the study. A dose lowering technique was utilized adhering to the principles of ALARA. COMPARISON: CT head on 12/07/2021 FINDINGS: Brain: No acute infarct or hemorrhage identified. No extra-axial fluid collection. No mass effect or midline shift. Scattered areas of hypoattenuation in the supratentorial white matter likely represent chronic small vessel ischemic changes. Ventricles and sulci: Prominence of the ventricles and sulci is likely secondary to cerebral volume loss. Bones: Hyperostosis frontalis interna. Degenerative changes of the temporomandibular joints. No bony lesion or acute fracture. Subcutaneous tissues: Normal. Sinuses: Normal. No air-fluid levels or mucosal thickening. Mastoid air cells: Normal. Orbits: Bilateral lens implants. Other: Atherosclerotic calcifications in the intracranial vasculature. IMPRESSION: 1. No acute intracranial abnormality. 2. Mild chronic small vessel ischemic changes and cerebral volume loss. Electronically signed by: Anselmo Duong M.D. 01/13/24 22:47 PM PG Care Time/CCT Total # of Minutes Spent Total Time Spent with Patient: Total time spent is greater than 50% in coordination of care (as documented) at patient's floor/unit and/or counseling patient: I spent 130 minutes overall addressing this case: 15 min in medical data review/discussion with referring provider(s) and/or preparation for the visit 25 min in direct interaction with the patient/exam 60 min in Advance Care Planning/Goals of Care discussions as detailed above in note (must be >16min) 15 min in subsequent review and synthesis of assessment and plan 15 min communicating with other providers regarding the patient's case: Advanced Care Planning 98448 Advanced Care Planning 30 Min [id number] Advanced Care Planning Additional 30 [place] [address] IN/OBS CONSULT LVL 5,80M (25 - SIGNIFICANT, SEPARATELY IDENTIFIABLE ) Patient Type New Medical Decision Making High Complexity Diagnoses Dyspnea and respiratory abnormalities R06.00; R06.89 Aspiration into airway T17.908A Sialorrhea K11.7 ALS (amyotrophic lateral sclerosis) G12.21 Advanced care planning/counseling discussion Z71.89 Palliative care by specialist Z51.5 Weakness generalized R53.1 Additional Codes Advanced Care Planning - 85549 Advanced Care Planning 30 Min: 57929 Advanced Care Planning 30 Min ([id number]) Advanced Care Planning - 09860 Advanced Care Planning Additional 30 Min: 33822 Advanced Care Planning Additional 30 Min ([id number])
--- NOTE | 2024-01-15 15:48 | Hospitalist Progress Note ---
Date of Service January 15, 2024 Assessment & Plan (1) Aspiration pneumonitis: Plan: 88-year-old female with history of ALS, esophageal reflux, Schatzki's ring who presented with cough and shortness of breath for few days prior to admission. Aspiration pneumonia with hypoxia in the setting of ALS, history of esophageal reflux and Schatzi's ring Patient normally eats by mouth, uses PEG tube only for medication administration Presents with cough, shortness of breath that started this morning CT chest with dependent consolidation concerning for atelectasis/pneumonia and bronchitis. CT head with no acute normality. Continue IV Unasyn. Continue nebs and hypertonic saline. Continue Mucinex And Protonix. Currently she prefers to be npo. Speech therapy recommend also n.p.o. at this point. Seen by GI. declined PEG tube. Recommended palliative- awaiting formal evaluation. continue supplemental oxygen, wean down as tolerated. 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 Chronic anemia- hemoglobin stable at baseline Underweight/Low BMI at 19 Mood disorder- on Zoloft, remeron GERD- on PPI DVT prophylaxis- Heparin SQ every 12 hours Disposition- pending palliative evaluation for further goals of care discussion. Time spent- approximately 35 minutes Admission and Anticipated Discharge Date Admission Date: January 13, 2024 Subjective Patient was seen and examined at bedside. States she has thick yellow cough and her voice is weak. States she feels weak. Her appetite is poor. No fever, chills, chest pain, nausea or vomiting. Review of Systems Review of Systems: All systems reviewed & are unremarkable except as noted in Subjective Physical Exam Physical Exam: General: Frail elderly female, Lying comfortably in bed, not in distress, on NC Chest: Bilateral rhonchi/rales. CVS: Regular rate and rhythm, normal heart sounds, no murmur Abdomen: Soft, non tender, not distended, normal bowel sounds. PEG tube noted. Neuro: Awake, alert, oriented, conversing well, non focal Extremities: No edema Results & Data Results & Data Vital Signs (Past 12 Hours) Vital Signs Temp Pulse Resp BP Pulse Ox O2 Del Method O2 Flow Rate 01/15/24 14:45 36.8 C 65 18 149/69 H 97 Nasal Cannula 2 01/15/24 12:15 65 18 98 Nasal Cannula 2 01/15/24 08:00 Nasal Cannula 2 01/15/24 07:55 36.2 C L 73 18 146/73 H 97 Nasal Cannula 01/15/24 07:09 65 18 94 Nasal Cannula 2
[2024-01-15] MEDS: AMPICILLIN/SULBACTAM SOD 3,000 MG in SODIUM CHLOR 0.9% MINI-B 100 ML IV SCH (16:55)
[2024-01-15] MEDS ORDERED: SODIUM CHLOR 7% 4 ML NEB NEB SCH (19:00)
--- NOTE | 2024-01-16 01:37 | Communication Note ---
Date of Service: January 16, 2024 Patient complaining of restless legs. Chronic problem even at home as per RN. AP RLS Sinemet as needed Hold off on gabapentin given episodic confusion as per RN.
[2024-01-16] MEDS: CARBIDOPA/LEVODOPA 25/100MG TAB PO STA (01:58)
[2024-01-16 06:30] LABS: Hematocrit (blood only) 31.1 % (37.0-47.0); Mean Corpuscular Hemoglobin 30.9 pg (25.0-34.0); Mean Corpuscular Hgb Conc 32.2 g/dL (32.0-36.0); Mean Platelet Volume 10.6 fL (9.4-12.4); Platelet Count 178 K/uL (130-400); RDW Coefficient of Variation 15.7 % (11.5-14.5); RDW Standard Deviation 55.7 fL (36.4-46.3); Red Blood Count 3.24 M/uL (4.20-5.40); White Blood Count 7.33 K/ul (4.8-10.8)
[2024-01-16 06:44] LABS: BUN Creatinine Ratio 19.6 (10-20); Calcium 8.5 mg/dl (8.6-10.3); Creatinine Clr Calc Pharmacy 56.8 ml/min; Est GFR (African American) 96.5 ml/min; Est GFR (Non-African American) 83.2 ml/min; Magnesium 1.6 mg/dl (1.7-2.4); Phosphorus 3.1 mg/dl (2.5-4.9); Potassium 2.9 mmol/L (3.5-5.1)
[2024-01-16] MEDS: POTASSIUM CHLORIDE 20 MEQ/15 ML UDC PEG SCH (09:48)
[2024-01-16] MEDS: D5W AND 1/2NSS + 20MEQ KCL 20 MEQ/1,000 ML BAG IV SCH (10:22)
[2024-01-16] MEDS: MAGNESIUM SULFATE / D5W 1 GM/100 ML BAG IV ONE (10:53)
[2024-01-16] MEDS: LIDOCAINE 5% 1 PATCH TD STA (12:56)
[2024-01-16] MEDS: GABAPENTIN 250 MG/5 ML 470 ML BTL PO SCH ×2 (12:57→20:29)
--- NOTE | 2024-01-16 18:44 | Hospitalist Progress Note ---
Date of Service January 16, 2024 Assessment & Plan (1) Aspiration pneumonitis: Plan: 88-year-old female with history of ALS, esophageal reflux, Schatzki's ring who presented with cough and shortness of breath for few days prior to admission. Aspiration pneumonia with hypoxia in the setting of ALS, history of esophageal reflux and Schatzi's ring Patient normally eats by mouth, uses PEG tube only for medication administration Presents with cough, shortness of breath that started this morning CT chest with dependent consolidation concerning for atelectasis/pneumonia and bronchitis. CT head with no acute normality. Continue IV Unasyn. Continue nebs and hypertonic saline. Continue Mucinex And Protonix. Currently she prefers to be npo. Speech therapy recommend also n.p.o. at this point. Seen by GI. declined PEG tube. Recommended palliative- awaiting formal evaluation. continue supplemental oxygen, wean down as tolerated. hypokalemia- repleted aggressively, recheck in a.m. hypomagnesemia- repleted, recheck in a.m. 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 Chronic anemia- hemoglobin stable at baseline Underweight/Low BMI at 19 Mood disorder- on Zoloft, remeron GERD- on PPI restless leg syndrome- started on gabapentin but reported this was ineffective, dose was increased. If that does not help, consider low-dose Klonopin. DVT prophylaxis- Heparin SQ Disposition- Patient has decided to go home on home hospice which cannot be arranged over the weekend. Time spent- approximately 35 minutes Admission and Anticipated Discharge Date Admission Date: January 13, 2024 Subjective patient was seen and examined at bedside. She complains of bilateral leg pain. She is looking forward to going on home hospice. No fever, chills, chest pain. Still with cough, weak voice and some shortness of breath. Review of Systems Review of Systems: All systems reviewed & are unremarkable except as noted in Subjective Physical Exam Physical Exam: General: Frail elderly female, Sitting in chair, not in distress, on NC Chest: Bilateral rhonchi/rales. CVS: Regular rate and rhythm, normal heart sounds, no murmur Abdomen: Soft, non tender, not distended, normal bowel sounds. PEG tube noted. Neuro: Awake, alert, oriented, conversing well, non focal Extremities: No edema Results & Data Results & Data Vital Signs (Past 12 Hours) Vital Signs Temp Pulse Resp BP Pulse Ox O2 Del Method O2 Flow Rate 01/16/24 15:46 36.7 C 70 18 126/79 95 Room Air 01/16/24 12:49 70 18 94 Room Air 01/16/24 08:45 Room Air 01/16/24 08:15 36.4 C L 73 18 129/68 95 Room Air 01/16/24 07:42 74 18 94 Nasal Cannula 2 Laboratory Results Short CBC 01/16/24 Range/Units 05:47 WBC 7.33 (4.8-10.8) K/ul Hgb 10.0 L (12.0-16.0) g/dl Hct 31.1 L (37.0-47.0) % Plt Count 178 (130-400) K/uL BMP 01/16/24 05:47 Sodium 142 Potassium 2.9 L Chloride 108 H Carbon Dioxide 24 BUN 11 Creatinine 0.56 L Glucose 67 L Calcium 8.5 L
[2024-01-16] MEDS: clonazePAM 0.5 MG TAB PO PRN (20:39)
[2024-01-17 06:59] LABS: BUN Creatinine Ratio 13.1 (10-20); Calcium 8.5 mg/dl (8.6-10.3); Creatinine Clr Calc Pharmacy 52.1 ml/min; Est GFR (African American) 93.8 ml/min; Est GFR (Non-African American) 80.9 ml/min; Magnesium 1.9 mg/dl (1.7-2.4); Potassium 4.5 mmol/L (3.5-5.1)
[2024-01-17] MEDS: GABAPENTIN 250 MG/5 ML 470 ML BTL PEG SCH (14:07)
--- NOTE | 2024-01-17 15:30 | Hospitalist Progress Note ---
Date of Service January 17, 2024 Assessment & Plan (1) Aspiration pneumonitis: Plan: 88-year-old female with history of ALS, esophageal reflux, Schatzki's ring who presented with cough and shortness of breath for few days prior to admission. Aspiration pneumonia with hypoxia in the setting of ALS, history of esophageal reflux and Schatzi's ring Patient normally eats by mouth, uses PEG tube only for medication administration Presents with cough, shortness of breath that started this morning CT chest with dependent consolidation concerning for atelectasis/pneumonia and bronchitis. CT head with no acute normality. Continue IV Unasyn. Continue nebs and hypertonic saline. Continue Mucinex And Protonix. Currently she prefers to be npo except for ice chips. Speech therapy recommend also n.p.o. at this point. Seen by GI. declined PEG tube. seen by palliative who also recommended home hospice when stable. She was on room air during encounter today Mucinex and vest therapy ordered to help her expectorate Diarrhea- will rule out C. difficile. If negative, will start on fibers and Imodium. hypokalemia- resolved hypomagnesemia- resolved 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 Chronic anemia- hemoglobin stable at baseline Underweight/Low BMI at 19 Mood disorder- on Zoloft, remeron GERD- on PPI restless leg syndrome- started on gabapentin an increase to 200 Mg 3 times daily, symptoms are currently manageable. If that does not help, As needed low-dose Klonopin. DVT prophylaxis- Heparin SQ Disposition- Patient has decided to go home on home hospice which cannot be arranged over the weekend. Time spent- approximately 35 minutes Admission and Anticipated Discharge Date Admission Date: January 13, 2024 Subjective Patient was seen and examined bedside in presence of her sons. she feels okay. Her leg pain is tolerable with no new medications. She complains of ongoing multiple diarrheas for the past few days, once antibiotics been started. She states that she would feel better if she is able to bring the phlegm out. She does have a weak cough and weak voice. She is asking when she can with the hospice agency. Review of Systems Review of Systems: All systems reviewed & are unremarkable except as noted in Subjective Physical Exam Physical Exam: General: Frail elderly female, Sitting in chair, not in distress Chest: Bilateral rhonchi/rales. CVS: Regular rate and rhythm, normal heart sounds, no murmur Abdomen: Soft, non tender, not distended, normal bowel sounds. PEG tube noted. Neuro: Awake, alert, oriented, conversing well, non focal Extremities: No edema Results & Data Results & Data Vital Signs (Past 12 Hours) Vital Signs Temp Pulse Resp BP Pulse Ox O2 Del Method 01/17/24 12:47 66 18 94 Room Air 01/17/24 09:52 Room Air 01/17/24 08:09 36.6 C 58 L 18 164/76 H 97 Room Air 01/17/24 07:20 60 18 94 Room Air Laboratory Results [facility] 01/17/24 05:39 Sodium 140 Potassium 4.5 D Chloride 110 H Carbon Dioxide 25 BUN 8 Creatinine 0.61 Glucose 79 Calcium 8.5 L
[2024-01-17] MEDS: clonazePAM 0.5 MG TAB PO PRN (22:25)
[2024-01-17] MEDS: guaiFENesin 600 MG TABCR PO SCH (22:47)
[2024-01-17] MEDS: guaiFENesin SUGAR FREE 200 MG/10 ML UDC PEG SCH (23:15)
--- NOTE | 2024-01-18 16:15 | Palliative Family Discussion ---
Date of Service January 18, 2024 Patient Directed Conference Time of [id number] Participants: Nara Desir DNP Patient participation: yes Patient Support System sons x2, dtrs in law x3 Other Healthcare Provider Participation: None Meeting Location: bedside Advanced Directive available: pt affirms DNR/DNI This face to face ACP family meeting was held for TAYA BOLDEN. This meeting was necessary for determining the appropriate course of treatment. Topics of Discussion Topics of Discussion: 1. Adv ALS, worsening resp failure 2. She wants home hospice, with family support. She does not want SNF or rehab. They agree 3. She wants [employer], focus on quality, strong symptom mgt/no suffering. Other Content of Meetin. Opportunity given for participants to speak and ask questions. 2. Participants were assured of attention to patient comfort. 3. Reassurance provided. 4. Support was provided for informed, good-moira decisions. 5. Emotions expressed by family were acknowledged and addressed. 6. Plan of Care: hospice at home, CM and primary team notified TS 60min, 15min is review and post discussion/team discussions & 45min face to face ACP Thank you for allowing us to participate in the ongoing care of this patient. Please don't hesitate to call or page with any additional concerns. Dr. Nara Desir DNP Director, Palliative Care
--- NOTE | 2024-01-18 16:17 | Hospitalist Progress Note ---
Date of Service January 18, 2024 Assessment & Plan (1) Aspiration pneumonitis: Plan: 88-year-old female with history of ALS, esophageal reflux, Schatzki's ring who presented with cough and shortness of breath for few days prior to admission. Aspiration pneumonia with hypoxia in the setting of ALS, history of esophageal reflux and Schatzi's ring Patient normally eats by mouth, uses PEG tube only for medication administration Presents with cough, shortness of breath that started this morning CT chest with dependent consolidation concerning for atelectasis/pneumonia and bronchitis. CT head with no acute normality. Continue IV Unasyn. Continue nebs and hypertonic saline. Continue Mucinex and Protonix. Currently she prefers to be npo except for ice chips. Speech therapy recommend also n.p.o. at this point. Seen by GI. declined PEG tube. seen by palliative who also recommended home hospice when stable. On room air since yesterday Mucinex and vest therapy ordered to help her expectorate Diarrhea- resolved spontaneously. 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 Chronic anemia- hemoglobin stable at baseline Underweight/Low BMI at 19 Mood disorder- on Zoloft, remeron GERD- on PPI restless leg syndrome- On gabapentin 200 Mg 3 times daily with improvement in symptoms. On as needed low-dose Klonopin. DVT prophylaxis- Heparin SQ Disposition- Plan for discharge home tomorrow on [facility] hospice. Time spent- approximately 35 minutes Updated family at bedside. Admission and Anticipated Discharge Date Admission Date: January 13, 2024 Subjective Patient was seen and examined at bedside in presence of family. They were awaiting palliative evaluation today. She feels fine- leg pain better, complains of headache. Diarrhea resolved, no BM overnight. Breathing okay. Still with cough and phlegm but improving. On room air. She would like to go home on hospice. Review of Systems Review of Systems: All systems reviewed & are unremarkable except as noted in Subjective Physical Exam Physical Exam: General: Frail elderly female, Lying in bed, not in distress, on NC Chest: Bilateral rhonchi/rales. CVS: Regular rate and rhythm, normal heart sounds, no murmur Abdomen: Soft, non tender, not distended, normal bowel sounds. PEG tube noted. Neuro: Awake, alert, oriented, conversing well, non focal Extremities: No edema Results & Data Results & Data Vital Signs (Past 12 Hours) Vital Signs Temp Pulse Resp BP BP Pulse Ox O2 Del Method 01/18/24 15:39 36.5 C 74 20 154/86 H 92 Room Air 01/18/24 13:28 62 12 92 Room Air 01/18/24 08:49 36.3 C L 71 16 150/86 H 92 Room Air 01/18/24 07:43 64 18 95 Room Air 01/18/24 07:25 Room Air FiO2 01/18/24 15:39 01/18/24 13:28 21 01/18/24 08:49 01/18/24 07:43 01/18/24 07:25
[2024-01-18] MEDS: LANSOPRAZOLE 30 MG SOLTAB PEG SCH (21:12)
[2024-01-19] MEDS ORDERED: azaTHIOprine 50 MG TAB PO ONE (09:12)
[2024-01-19] MEDS: azaTHIOprine 50 MG TAB PO SCH (09:12)
--- NOTE | 2024-01-19 12:26 | Discharge Summary ---
Date of Service January 19, 2024 Admission HPI Per Admitting Provider 88-year-old female with history of ALS, esophageal reflux, schisis ring, presenting with cough and shortness of breath which started this morning. Patient has a history of ALS with status post PEG tube. She eats regular food daily but is careful with textures and only uses her PEG tube for medication administration as she is not able to swallow pills. She said she has been doing well until this morning when she started to have cough productive of white/clear phlegm, associated with some shortness of breath. She was then brought to the emergency room by her [id number] for evaluation. Patient received with saturation of 87% on room air, improved to 94% on 2 L of oxygen Chest x-ray no clear signs of pneumonia She was given Zosyn and nebulizer treatment for suspected aspiration. On exam, patient seen resting in bed, comfortable, on 2 L, not in distress States she feels somewhat improved since admission. No active shortness of breath, chest pain, nausea or vomiting during my interview. Admission Exam Per Admitting Provider General- oriented x 3, not in distress, speaks in sentences with no effort or accessory muscle use Mouth-dry oral mucosa Eyes- anicteric Neck- no JVD Lungs- Positive diffuse mild crackles bilaterally, no wheezing Heart- normal rate, regular rhythm; no murmurs Abdomen- normal bowel sounds, nondistended, soft, nontender Extremities- no pretibial edema, no calf tenderness Neuro- alert, oriented x 3; no gross focal neurologic deficits Skin- warm & dry Principal Diagnosis ALS with aspiration pneumonia Discharge Exam General: Frail elderly female, Lying in bed, not in distress, on room air Chest: Fair breath sounds bilaterally CVS: Regular rate and rhythm, normal heart sounds, no murmur Abdomen: Soft, non tender, not distended, normal bowel sounds. PEG tube noted. Neuro: Awake, alert, oriented, conversing well, non focal Extremities: No edema Discharge Data Allergies Allergy/AdvReac Type Severity Reaction Status Date / Time chlorhexidine Allergy Intermediate RASH Verified 04/21/23 22:38 codeine Allergy Intermediate ITCHING/VIVIAN Verified 04/21/23 22:38 SEA Corticosteroids Allergy Intermediate STERIOD Verified 04/21/23 22:38 (Glucocorticoids) INJECTIONS - FLUSHING AND BLOTCHING REDNESS, ITCHY morphine Allergy Intermediate ITCHY HIVES Verified 04/21/23 22:38 oxycodone Allergy Intermediate PERCOCET-ITCHING Verified 04/21/23 22:38 OF ARMS,SHOULDERS,GROGGY/GI UPSET shellfish derived Allergy Intermediate Rash Verified 04/21/23 22:38 Tetracyclines Allergy Intermediate Rash Verified 04/21/23 22:38 dipyridamole Allergy Unknown reaction Verified 04/21/23 22:38 unknown fenoprofen Allergy Unknown UNKNOWN Verified 04/21/23 22:38 PER [facility] MED LIST duloxetine AdvReac Severe SEDATION & Verified 04/21/23 22:38 BAD DREAMS mepivacaine AdvReac Unknown pt states Verified 04/21/23 22:38 "just didnt work" Consultations 01/13/24 18:08 ED Decision to Admit Stat 01/13/24 19:25 Consult Gastroenterology Routine 01/14/24 16:16 Consult Palliative Care Routine Ordered Studies 01/13/24 19:25 CT chest diagnostic wo con Urgent CT head/brain wo con Urgent Laboratory Results WBC 7.33 K/ul (4.8-10.8) 01/16/24 05:47 RBC 3.24 M/uL (4.20-5.40) L 01/16/24 05:47 Hgb 10.0 g/dl (12.0-16.0) L 01/16/24 05:47 Hct 31.1 % (37.0-47.0) L 01/16/24 05:47 MCV 96.0 fL (80.0-100.0) 01/16/24 05:47 MCH 30.9 pg (25.0-34.0) 01/16/24 05:47 MCHC 32.2 g/dL (32.0-36.0) 01/16/24 05:47 RDW Std Deviation 55.7 fL (36.4-46.3) H 01/16/24 05:47 RDW Coeff of Gale 15.7 % (11.5-14.5) H 01/16/24 05:47 Plt Count 178 K/uL (130-400) 01/16/24 05:47 MPV 10.6 fL (9.4-12.4) 01/16/24 05:47 Immature Gran % (Auto) 0.5 % 01/14/24 05:34 Neut % (Auto) 82.3 % 01/14/24 05:34 Lymph % (Auto) 7.6 % 01/14/24 05:34 [place] % (Auto) 7.2 % 01/14/24 05:34 Eos % (Auto) 1.9 % 01/14/24 05:34 Baso % (Auto) 0.5 % 01/14/24 05:34 Neut # (Auto) 10.58 K/uL (1.40-6.50) H 01/14/24 05:34 Lymph # (Auto) 0.97 K/uL (1.20-3.40) L 01/14/24 05:34 [place] # (Auto) 0.92 K/uL (0.11-0.59) H 01/14/24 05:34 Eos # (Auto) 0.25 K/uL (0.00-0.50) 01/14/24 05:34 Baso # (Auto) 0.06 K/uL (0.00-0.20) 01/14/24 05:34 Immature Gran # (Auto) 0.06 K/uL (0.01-0.20) 01/14/24 05:34 PT 11.0 Seconds (9.0-12.0) 01/13/24 16:58 INR 1.0 (0.9-1.1) 01/13/24 16:58 APTT 23 Seconds (21-31) 01/13/24 16:58 PTT Ratio 0.9 01/13/24 16:58 Sodium 140 mmol/L (136-145) 01/17/24 05:39 Potassium 4.5 mmol/L (3.5-5.1) D 01/17/24 05:39 Chloride 110 mmol/L (98-107) H 01/17/24 05:39 Carbon Dioxide 25 mmol/L (21-32) 01/17/24 05:39 Anion Gap 5 (3-11) 01/17/24 05:39 BUN 8 mg/dl (6-23) 01/17/24 05:39 Creatinine 0.61 mg/dl (0.6-1.2) 01/17/24 05:39 Est Cr Clr Drug Dosing 52.1 ml/min 01/17/24 05:39 Est GFR ( Amer) 93.8 ml/min 01/17/24 05:39 Est GFR (Non-Af Amer) 80.9 ml/min 01/17/24 05:39 BUN/Creatinine Ratio 13.1 (10-20) 01/17/24 05:39 Glucose 79 mg/dl (70-99(Fasting)) 01/17/24 05:39 POC Glucose 99 mg/dl (70-99) 01/14/24 07:53 Lactate 1.3 mmol/L (0.4-2.0) 01/13/24 16:58 Calcium 8.5 mg/dl (8.6-10.3) L 01/17/24 05:39 Phosphorus 3.1 mg/dl (2.5-4.9) 01/16/24 05:47 Magnesium 1.9 mg/dl (1.7-2.4) 01/17/24 05:39 Total Bilirubin 0.5 mg/dl (0.2-1.0) 01/13/24 16:58 AST 24 U/L (13-39) 01/13/24 16:58 ALT 5 U/L (7-52) L 01/13/24 16:58 Alkaline Phosphatase 101 U/L (34-104) 01/13/24 16:58 Troponin I High Sens 72.1 pg/ml (0-14) H* 01/13/24 22:53 B-Natriuretic Peptide 282 pg/ml (0-100) H 01/13/24 16:58 Total Protein 7.6 gm/dl (6.0-8.3) 01/13/24 16:58 Albumin 4.0 gm/dl (3.4-5.0) 01/13/24 16:58 Globulin 3.6 gm/dl (2.5-4.0) 01/13/24 16:58 Albumin/Globulin Ratio 1.1 (0.9-2) 01/13/24 16:58 Lipase 18 U/L (11-82) 01/13/24 16:58 Procalcitonin 0.03 ng/ml (0-0.5) 01/13/24 16:58 Urine Color Yellow 01/14/24 Unknown Urine Appearance Clear (Clear) 01/14/24 Unknown Urine pH 6.0 (4.5-7.5) 01/14/24 Unknown Ur Specific [place] 1.022 (1.000-1.030) 01/14/24 Unknown Urine Protein Trace (Negative) H 01/14/24 Unknown Urine Glucose (UA) Trace (Negative) H 01/14/24 Unknown Urine Ketones Trace (Negative) H 01/14/24 Unknown Urine Blood Negative (Negative) 01/14/24 Unknown Urine Nitrite Negative (Negative) 01/14/24 Unknown Urine Bilirubin Negative (Negative) 01/14/24 Unknown Urine Urobilinogen Negative (Negative) 01/14/24 Unknown Ur Leukocyte Esterase 3+ (Negative) H 01/14/24 Unknown Urine WBC (Auto) >50 /hpf (0-5) H 01/14/24 Unknown Urine RBC (Auto) 6-10 /hpf (0-2) H 01/14/24 Unknown U Hyaline Cast (Auto) 0-2 /lpf (0-2) 01/14/24 Unknown U Epithel Cells (Auto) 0-2 /hpf (0-2) 01/14/24 Unknown Urine Bacteria (Auto) None Seen (None Seen) 01/14/24 Unknown Nasal Screen MRSA (PCR) Negative (Negative) 01/13/24 18:52 Adenovirus (PCR) Not Detected (NotDetected) 01/13/24 16:47 B. pertussis DNA (PCR) Not Detected (NotDetected) 01/13/24 16:47 B.parapertussis DNA PCR Not Detected (NotDetected) 01/13/24 16:47 C. pneumoniae DNA (PCR) Not Detected (NotDetected) 01/13/24 16:47 Coronavirus OC43 (PCR) Not Detected (NotDetected) 01/13/24 16:47 Coronavirus HKU1 (PCR) Not Detected (NotDetected) 01/13/24 16:47 Coronavirus 229E (PCR) Not Detected (NotDetected) 01/13/24 16:47 SARS-CoV-2 (PCR) Not Detected (NotDetected) 01/13/24 16:47 Coronavirus NL63 (PCR) Not Detected (NotDetected) 01/13/24 16:47 Human Metapneumovir PCR Not Detected (NotDetected) 01/13/24 16:47 Influenza Type A (PCR) Not Detected (NotDetected) 01/13/24 16:47 Influenza Type B (PCR) Not Detected (NotDetected) 01/13/24 16:47 Urine Legionella Ag SEE NOTE 01/14/24 Unknown M. pneumoniae (PCR) Not Detected (NotDetected) 01/13/24 16:47 Parainfluenza 1 (PCR) Not Detected (NotDetected) 01/13/24 16:47 Parainfluenza 2 (PCR) Not Detected (NotDetected) 01/13/24 16:47 Parainfluenza 3 (PCR) Not Detected (NotDetected) 01/13/24 16:47 Parainfluenza 4 (PCR) Not Detected (NotDetected) 01/13/24 16:47 RSV (PCR) Not Detected (NotDetected) 01/13/24 16:47 Entero/Rhino (PCR) Not Detected (NotDetected) 01/13/24 16:47 Impressions Chest X-Ray 01/13/24 16:32 SINGLE VIEW CHEST CLINICAL HISTORY: Atypical chest pain FINDINGS: An AP, portable, upright chest radiograph is compared to study dated 04/21/2023 and correlated with chest CT dated 10/29/2021.. The heart is enlarged noting atherosclerotic calcification of the thoracic ureter. The pulmonary vasculature is not congested. Chronic residual thickening is similar to previous. There is bibasilar scarring/atelectasis. No airspace consolidation or large pleural effusion is identified. No pneumothorax is seen. The skeletal structures are osteopenic. There is chronic deformity of the left humeral head. Fusion hardware is noted in the lower cervical spine. An intrathecal lead projects over the mid thoracic spine. IMPRESSION: Cardiomegaly with no active disease in the chest. ACT 112: Negative or not required by law. Electronically signed by: Trenton Bergman M.D. 01/13/2024 5:[address] 01/13/24 19:25 Exam(s): CT CHEST Without Contrast EXAM: CT Chest Without Intravenous Contrast CLINICAL HISTORY: Reason for exam: cough, hypoxia, r/o pneumonia. TECHNIQUE: Axial computed tomography images of the chest without intravenous contrast. CTDI is 7.73 mGy and DLP is 249.53 mGy-cm. Automated exposure control was utilized for the study. A dose lowering technique was utilized adhering to the principles of ALARA. COMPARISON: CT chest on 10/29/2021 FINDINGS: Lungs: Dependent consolidations bilaterally may represent combination of atelectasis and pneumonia. Bronchial wall thickening is concerning for bronchitis. Multiple areas of the lung apices. No mass. Pleural space: Unremarkable. No pneumothorax. No significant effusion. Heart: Coronary artery and aortic valve calcifications. No cardiomegaly. No significant pericardial effusion. Mediastinum: Nonspecific mildly prominent mediastinal lymph nodes. Small amount of fluid in the esophagus. Bones/joints: Elevation of the humeral heads is suggestive of chronic rotator cuff tears. Curvature of the spine. Degenerative changes of the spine. Mild anterolisthesis of T2 on T3. Anterior fusion changes of the cervical spine. No acute fracture. No dislocation. Soft tissues: Unremarkable. Vasculature: Atherosclerotic changes of the vasculature. Borderline ectasia of the ascending thoracic aorta measuring 3.9 cm in diameter. Lymph nodes: See above. Tubes, lines and devices: Epidural spinal stimulator noted. G-tube in place. IMPRESSION: 1. Dependent consolidations bilaterally may represent combination of atelectasis and pneumonia. 2. Bronchial wall thickening is concerning for bronchitis. Electronically signed by: Anselmo Duong M.D. 01/13/24 21:[address] 01/13/24 19:25 Exam(s): CT HEAD Without Contrast EXAM: CT Head Without Intravenous Contrast CLINICAL HISTORY: Reason for exam: dysphagia. TECHNIQUE: Axial computed tomography images of the head/brain without intravenous contrast. CTDI is 35.37 mGy and DLP is 546.36 mGy-cm. Automated exposure control was utilized for the study. A dose lowering technique was utilized adhering to the principles of ALARA. COMPARISON: CT head on 12/07/2021 FINDINGS: Brain: No acute infarct or hemorrhage identified. No extra-axial fluid collection. No mass effect or midline shift. Scattered areas of hypoattenuation in the supratentorial white matter likely represent chronic small vessel ischemic changes. Ventricles and sulci: Prominence of the ventricles and sulci is likely secondary to cerebral volume loss. Bones: Hyperostosis frontalis interna. Degenerative changes of the temporomandibular joints. No bony lesion or acute fracture. Subcutaneous tissues: Normal. Sinuses: Normal. No air-fluid levels or mucosal thickening. Mastoid air cells: Normal. Orbits: Bilateral lens implants. Other: Atherosclerotic calcifications in the intracranial vasculature. IMPRESSION: 1. No acute intracranial abnormality. 2. Mild chronic small vessel ischemic changes and cerebral volume loss. Electronically signed by: Anselmo Duong M.D. 01/13/24 22:47 PM Hospital Course (1) Aspiration pneumonitis: 88-year-old female with history of ALS, esophageal reflux, Schatzki's ring who presented with cough and shortness of breath for few days prior to admission. Labs and imaging reviewed. She was started on empiric iv antibiotics for aspiration pneumonia and supplemental oxygen for hypoxia. Nebs and hypertonic solution were continued. She was seen by GI and palliative. She opted for home hospice and is being discharged today on home hospice. Her hypoxia has improved and her respiratory status has improved. She is comfortable and stable for discharge home on hospice. Aspiration pneumonia with hypoxia in the setting of ALS, history of esophageal reflux and Schatzki's ring Patient normally eats by mouth, uses PEG tube only for medication administration Presents with cough, shortness of breath that started this morning CT chest with dependent consolidation concerning for atelectasis/pneumonia and bronchitis. CT head with no acute normality. S/p IV Unasyn, nebs, hypertonic saline, Mucinex. Discharging on augmentin and mucinex. Seen by GI, [facility] and palliative Discharging on home hospice today She has been on room air for past few days Diarrhea- resolved spontaneously. 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 Chronic anemia- hemoglobin stable at baseline Underweight/Low BMI at 19 Mood disorder- on Zoloft, remeron GERD- on PPI Restless leg syndrome- continue home gabapentin Total Time Total Time Spent Total Time Spent (In Minutes): 33 Discharge Plan Discharge Items Patient Disposition: Hospice - Home Reason For Visit: WEAKNESS Discharge Diagnosis: ALS with aspiration pneumonia Activity: Resume your previous activity Non-emergency contact: Primary Care Provider Call non-emergency contact if: you have any medication questions, your symptoms worsen, your pain is concerning for you and you have a fever Follow-up/Referrals: Manish Roblero, [Primary Care Provider] - Diet: Other - See Diet Comment Addtl Attending Provider Instructions: You have decided to go home on home hospice. They will take your care from here on and will help you stay comfortable. We wish you all the best Pending Studies at Discharge: No Stand-Alone Forms: My [facility] Medications and DC Order Prescriptions: New guaifenesin 100 mg/5 mL Liquid 200 mg PEG Q4H PRN (Reason: cough) Qty: 500 0RF amoxicillin-pot clavulanate 875-125 mg tablet 1 tab PO BID 2 Days Qty: 4 0RF Continued glycopyrrolate 1 mg tablet 1 mg feeding tube TID PRN (Reason: Congestion) sertraline 100 mg tablet 100 mg feeding tube DAILY naproxen 125 mg/5 mL suspension 500 mg feeding tube BID baclofen 10 mg Tablet 10 mg feeding tube BID Rx Instructions: Unable to verify med at this date/time. cholecalciferol (vitamin D3) [Vitamin D3] 50 mcg (2,000 unit) Tablet 50 mcg feeding tube DAILY Rx Instructions: Unable to verify OTC meds at this date/time. potassium citrate 99 mg Capsule 99 mg PO DAILY Rx Instructions: VIA FEEDING TUBE. Unable to verify OTC meds at this date/time. Radicava ORS 105 mg/5 mL suspension 0 mg feeding tube DIRECTED Rx Instructions: PER PT "TAKE FOR 10 DAYS, THEN OFF FOR 2 WEEKS, THEN REPEAT". Unable to verify med at this date/time. Relyvrio 3-1 gram powder in packet 1 packet feeding tube DAILY Rx Instructions: Unable to verify med at this date/time. cyanocobalamin (vitamin B-12) [Vitamin B-12] 1,000 mcg tablet 1,000 mcg feeding tube QAM Rx Instructions: Unable to verify OTC meds at this date/time. azathioprine [Imuran] 50 mg tablet 50 mg feeding tube QAM acetaminophen [Acetaminophen Extra Strength] 500 mg tablet 1,000 mg feeding tube Q8H PRN (Reason: Pain) Rx Instructions: Unable to verify OTC meds at this date/time. pantoprazole 40 mg tablet,delayed release (DR/EC) 40 mg PO QAM Rx Instructions: VIA FEEDING TUBE. Unable to verify med at this date/time. hydrocodone-acetaminophen 7.5-325 mg/15 mL solution 5 ml PO Q6H PRN (Reason: pain) Qty: 118 0RF Rx Instructions: Unable to verify med at this date/time. mirtazapine 30 mg tablet 30 mg feeding tube HS riluzole 50 mg tablet 50 mg feeding tube BID (DME) Tube Feeding Water Flush See Rx Instructions .ROUTE .MEDSUPPLY Qty: 1 1RF Rx Instructions: As directed gabapentin 250 mg/5 mL solution 250 mg feeding tube BID Discharge Orders: Discharge Order (Routine); Ordered 01/19/24 Ordered By: Gary Madrid/Other Patient Handouts: What Is Palliative Care Admission Data Admit Date/Time: 01/13/24 18:29 Attending Provider: Gary Camarillo Admit Provider: Dallas Banegas Primary Care Provider: Manish Roblero Other Providers: Alvin Brock; Dallas Banegas; Nara Desir; [facility]; [place] Other Interventions: Discharge Summary Assessment (RN) Last Done: 01/19/24 08:07
== END 2024-01-19 11:28 | disposition hospice, home (50) | DRG 178 ==
LOC: ED 16:24 → 3N 18:29 → SUATTDRO 18:29 → 3N 20:11